=== PATIENT | male | born 1930 | race Caucasian/White ===

== ENCOUNTER 2016-12-18 07:53 | Inpatient (IN) | payer OTHER ==
[2016-12-18 08:00] VITALS: BMI 24.2
--- NOTE | 2016-12-18 08:45 | PDOC ---
History of Present Illness - General Chief Complaint: Altered Mental Status Stated Complaint: ALTERED MENTAL STATUS Time Seen by Provider: 12/18/16 08:05 History Source: Patient, Family - History of Present Illness Timing/Duration: other Associated Symptoms: denies: chest pain, cough, fever/chills, headaches, nausea/ vomiting, seizure, shortness of breath, weakness Past History - Past Medical History Allergies/Adverse Reactions: Allergies Allergy/AdvReac Type Severity Reaction Status Date / Time No Known Allergies Allergy Verified 12/18/16 08:40 Home Medications: Ambulatory Orders Quetiapine Fumarate [Seroquel] 0 tab PO HS 12/18/16 Dementia: Yes Psychiatric Problems: Yes - Surgical History Abdominal Surgery: Yes (HERNIA) - Psycho/Social/Smoking Cessation Hx Suicidal Ideation: No Smoking History: Never smoked Information on smoking cessation initiated: No Review of Systems - Review of Systems Constitutional: No: Chills, Fever Respiratory: No: Cough, Shortness of Breath Cardiac (ROS): No: Chest Pain ABD/GI: No: Constipated, Diarrhea, Nausea, Vomiting : No: Dysuria Neurological: No: Headache, Dizziness *Physical Exam - Vital Signs Last Vital Signs Temp Pulse Resp BP Pulse Ox 98.6 F 102 H 18 175/102 99 12/18/16 07:54 12/18/16 07:54 12/18/16 07:54 12/18/16 07:54 12/18/16 07:54 - Physical Exam General Appearance: Yes: Appropriately Dressed. No: Apparent Distress HEENT: positive: Normal Voice Neck: positive: Supple Respiratory/Chest: positive: Lungs Clear, Normal Breath Sounds. negative: Respiratory Distress Cardiovascular: positive: Regular Rate, S1, S2 Gastrointestinal/Abdominal: positive: Soft. negative: Tender Musculoskeletal: negative: CVA Tenderness Extremity: positive: Normal Inspection Integumentary: positive: Dry, Warm Neurologic: positive: Alert, Normal Mood/Affect, Other (oriented x person only) ED Treatment Course - RADIOLOGY Radiology Studies Ordered: Category Date Time Status HEAD CT WITHOUT CONTRAST [CT] Stat CT Scan 12/18/16 08:15 Ordered CHEST X-RAY PORTABLE* [RAD] Stat Radiology 12/18/16 08:05 Ordered Medical Decision Making - Medical Decision Making 12/18/16 08:20 85-year-old male history of dementia (oriented x 1 at baseline), brought in by family for worsening in cognitive decline. As per step-son, for the past several years, pt has had mostly paranoid behavior which has led to pt accusing multiple family member of stealing from him and has resulted in pt having to move in with different family members frequently. Pt currently resides w/ step son. On several occasions, it has gotten so severe that pt has gotten the police involved, including 3 days ago, and usually bought home by the police. Recently pt has become more aggressive towards family members and was taken to see his pmd, Dr Leong, yesterday and started on seroquel which he took for the first time last night and slept throughout the night per family but awoke w/ aggressive behaviour this am resulting in pt "scraping" L arm against door this am. No fall per son. No reports of SI/HI. Pt otherwise able to carry out ADLs per family. As per son, family overwhelmed and no longer able to care for pt at home in pt's current condition. Pt well frandy and alert in ED. Denies any medical complaints. Currently calling son a liar in ED See exam Worsening dementia, unlikely acute delirium given chronicity of symptoms -will check labs -discuss dispo w/ Dr leong 12/18/16 08:46 Dr Leong at bedside, wants pt admitted. 12/18/16 08:48 *DC/Admit/Observation/Transfer Diagnosis at time of Disposition: Altered mental status Qualifiers: Altered mental status type: unspecified Qualified Code(s): R41.82 - Altered mental status, unspecified - Discharge Dispostion Condition at time of disposition: Fair Admit: Yes - Referrals Referrals: Jodi Leong MD [Primary Care Provider] - - Patient Instructions - Post Discharge Activity
[2016-12-18 09:01] LABS: BASOPHIL 0.6 % (0-2.0); EOSINOPHIL 2.4 % (0-4.5); MCH 32.6 pg (25.7-33.7); MCHC 33.8 g/dl (32.0-35.9); MEAN CELL VOLUME 96.5 fl (80-96); MEAN PLT VOLUME 9.7 fl (7.5-11.1); NEUTROPHILS 48.3 % (42.8-82.8); PLATELET COUNT 158 K/MM3 (134-434); RDW 13.6 % (11.9-15.9); WHITE BLOOD COUNT 5.5 K/mm3 (4.0-10.0)
[2016-12-18 09:26] LABS: ALBUMIN 3.9 g/dl (3.4-5.0); ANION GAP 10 (8-16); BILIRUBIN,TOTAL 0.7 mg/dL (0.2-1.0); CALCIUM 9.2 mg/dL (8.5-10.1); CO2 24 mmol/L (21-32); CREATININE 1.4 mg/dL (0.7-1.3); GLUCOSE,RANDOM 153 mg/dL (74-106); SGOT/AST 26 U/L (15-37); SGPT/ALT 26 U/L (12-78); TOT PROT 6.7 g/dl (6.4-8.2)
[2016-12-18 09:29] LABS: ALK PHOS 90 U/L (45-117); CPK 290 IU/L (39-308); TROPONIN I < 0.02 ng/ml (0.00-0.05)
[2016-12-18] MEDS ORDERED: SODIUM CHLORIDE 500 ML IV STA (09:59)
[2016-12-18] MEDS ORDERED: ACETAMINOPHEN 325 MG TABLET (FP) PO PRN (10:32)
--- NOTE | 2016-12-18 10:37 | HP ---
Admitting History and Physical - Primary Care Physician PCP: Jodi Huerta - Admission Chief Complaint: ALTERED MENTAL STATUS/TOXIC METABOLIC ENCEPHALOPATHY History of Present Illness: 85-year-old male history of dementia (oriented x 1 at baseline), brought in by family for worsening in cognitive decline. As per step-son, for the past several years, pt has had mostly paranoid behavior which has led to pt accusing multiple family member of stealing from him and has resulted in pt having to move in with different family members frequently. Pt currently resides w/ step son. On several occasions, it has gotten so severe that pt has gotten the police involved, including 3 days ago, and usually bought home by the police. Recently pt has become more aggressive towards family members and was taken to see his pmd, Dr Huerta, yesterday and started on seroquel which he took for the first time last night and slept throughout the night per family but awoke w/ aggressive behaviour this am resulting in pt "scraping" L arm against door this am. No fall per son. No reports of SI/HI. Pt otherwise able to carry out ADLs per family. As per son, family overwhelmed and no longer able to care for pt at home in pt's current condition. Pt well frandy and alert in ED. Denies any medical complaints. 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 Psych: Yes: Anxiety, Other - Smoking History Smoking history: Never smoked Home Medications - Allergies Allergies/Adverse Reactions: Allergies Allergy/AdvReac Type Severity Reaction Status Date / Time No Known Allergies Allergy Verified 12/18/16 08:40 - Home Medications Home Medications: Ambulatory Orders Quetiapine Fumarate [Seroquel] 0 tab PO HS 12/18/16 Review of Systems - Review of Systems Constitutional: reports: Other Eyes: reports: No Symptoms HENT: reports: No Symptoms Neck: reports: No Symptoms Cardiovascular: reports: No Symptoms Respiratory: reports: No Symptoms Gastrointestinal: reports: No Symptoms Genitourinary: reports: No Symptoms Musculoskeletal: reports: Muscle Weakness Integumentary: reports: No Symptoms Neurological: reports: Confusion Endocrine: reports: No Symptoms Hematology/Lymphatic: reports: No Symptoms Psychiatric: reports: Altered Sleep Pattern, Anxiety, Paranoia, Other Physical Examination Vital Signs: Vital Signs Temperature 98.6 F 12/18/16 07:54 Pulse Rate 102 H 12/18/16 07:54 Respiratory Rate 18 12/18/16 07:54 Blood Pressure 175/102 12/18/16 07:54 O2 Sat by Pulse Oximetry (%) 98 12/18/16 08:37 Constitutional: Yes: Mild Distress Eyes: Yes: WNL HENT: Yes: WNL Neck: Yes: WNL Cardiovascular: Yes: WNL Respiratory: Yes: WNL Gastrointestinal: Yes: WNL Renal/: Yes: WNL Musculoskeletal: Yes: Muscle Weakness Extremities: Yes: WNL Edema: No Peripheral Pulses WNL: Yes Integumentary: Yes: WNL, Skin Tear (LEFT ARM) Wound/Incision: Yes: Open to air Neurological: Yes: Confusion ...Motor Strength: WNL Psychiatric: Yes: Agitated Imaging - Results Cat Scan: Report Reviewed Problem List - Problems (1) Altered mental status Code(s): R41.82 - ALTERED MENTAL STATUS, UNSPECIFIED Qualifiers: Altered mental status type: delirium Qualified Code(s): R41.0 - Disorientation, unspecified (2) Metabolic encephalopathy Code(s): G93.41 - METABOLIC ENCEPHALOPATHY (3) Dehydration Code(s): E86.0 - DEHYDRATION
[2016-12-18] MEDS ORDERED: SODIUM CHLORIDE 1,000 ML IV SCH (10:45)
--- NOTE | 2016-12-18 11:30 | CON.NEURO ---
Consult - History of Present Illness History of Present Illness: 85-year-old male history of dementia (oriented x 1 at baseline), brought in by family for worsening in cognitive decline. As per step-son, for the past several years, pt has had mostly paranoid behavior which has led to pt accusing multiple family member of stealing from him and has resulted in pt having to move in with different family members frequently. Pt currently resides w/ step son. On several occasions, it has gotten so severe that pt has gotten the police involved, including 3 days ago, and usually bought home by the police. Recently pt has become more aggressive towards family members and was taken to see his pmd, Dr Huerta, yesterday and started on seroquel which he took for the first time last night and slept throughout the night per family but awoke w/ aggressive behaviour this am resulting in pt "scraping" L arm against door this am. No fall per son. No reports of SI/HI. Pt otherwise able to carry out ADLs per family. As per son, family overwhelmed and no longer able to care for pt at home in pt's current condition. Pt well frandy and alert in ED. Denies any medical complaints. 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 Psych: Yes: Anxiety, Other - Smoking History Smoking history: Never smoked Home Medications - Allergies Allergies/Adverse Reactions: Allergies Allergy/AdvReac Type Severity Reaction Status Date / Time No Known Allergies Allergy Verified 12/18/16 08:40 - Home Medications Home Medications: Ambulatory Orders Quetiapine Fumarate [Seroquel] 0 tab PO HS 12/18/16 Physical Exam-Neuro Vital Signs: Vital Signs Temperature 98.6 F 12/18/16 07:54 Pulse Rate 102 H 12/18/16 07:54 Respiratory Rate 18 12/18/16 07:54 Blood Pressure 175/102 12/18/16 07:54 O2 Sat by Pulse Oximetry (%) 98 12/18/16 08:37 Constitutional: Yes: Well Nourished, No Distress - Neuro Exam Level Of Consciousness: Yes: Alert (awake , not oriented to place, not yr, follows basic requests, EOMI, no facial, no drift, reflexes symnmtric ) Problem List - Problems (1) Altered mental status Code(s): R41.82 - ALTERED MENTAL STATUS, UNSPECIFIED Qualifiers: Altered mental status type: delirium Qualified Code(s): R41.0 - Disorientation, unspecified (2) Dehydration Code(s): E86.0 - DEHYDRATION (3) Metabolic encephalopathy Code(s): G93.41 - METABOLIC ENCEPHALOPATHY (4) Dementia Code(s): F03.90 - UNSPECIFIED DEMENTIA WITHOUT BEHAVIORAL DISTURBANCE Assessment/Plan progressive dementia with possible underlying encephalopathy, metabolic (mild ARf) HD CT-no signs of stroke , NPH etc check B12, TSh rehab and SW consult can give low dose seroquel if absolutely necessary Dr Pavon
[2016-12-18] MEDS ORDERED: amLODIPine BESYLATE 5 MG TABLET (FP) ONE (11:34)
--- NOTE | 2016-12-18 11:41 | PDOC ---
*Physical Exam - Vital Signs Last Vital Signs Temp Pulse Resp BP Pulse Ox 98.6 F 102 H 18 175/102 98 12/18/16 07:54 12/18/16 07:54 12/18/16 07:54 12/18/16 07:54 12/18/16 08:37 - Physical Exam General Appearance: Yes: Nourished, Appropriately Dressed HEENT: positive: Normal ENT Inspection Neck: positive: Trachea midline Respiratory/Chest: positive: Lungs Clear, Normal Breath Sounds. negative: Chest Tender, Respiratory Distress Cardiovascular: positive: Regular Rhythm, Regular Rate, S1, S2 Gastrointestinal/Abdominal: positive: Normal Bowel Sounds, Flat, Soft. negative : Tender Musculoskeletal: positive: Normal Inspection. negative: CVA Tenderness Extremity: positive: Normal Capillary Refill, Normal Inspection, Normal Range of Motion Integumentary: positive: Normal Color, Dry, Warm Neurologic: positive: Alert, Motor Strength /5 ED Treatment Course - LABORATORY CBC & Chemistry Diagram: 12/18/16 08:45 12/18/16 08:45 - ADDITIONAL ORDERS Additional order review: Laboratory Results 12/18/16 08:45 Sodium 142 Potassium 4.0 Chloride 108 H Carbon Dioxide 24 Anion Gap 10 BUN 28 H Creatinine 1.4 H Creat Clearance w eGFR 48.05 Random Glucose 153 H Calcium 9.2 Total Bilirubin 0.7 AST 26 ALT 26 Alkaline Phosphatase 90 Creatine Kinase 290 Troponin I < 0.02 Total Protein 6.7 Albumin 3.9 Lipase 139 12/18/16 08:45 RBC 3.74 L MCV 96.5 H MCHC 33.8 RDW 13.6 MPV 9.7 Neutrophils % 48.3 Lymphocytes % 39.1 Monocytes % 9.6 Eosinophils % 2.4 Basophils % 0.6 - Medications Given in the ED: ED Medications Discontinued Medications Generic Name Dose Route Start Last Admin Trade Name Freq PRN Reason Stop Dose Admin Sodium Chloride 500 mls @ 1,000 mls/hr 12/18/16 09:59 12/18/16 10:33 Normal Saline - IV 12/18/16 10:28 1,000 mls/hr ASDIR STA Administration Medical Decision Making - Medical Decision Making 12/18/16 11:37 85 yo m with h/o dementia here brought by family for increasing paranoic, agitation and difficult behavior in the home. no f/c no recent trauma. no c/o pain. was started on seroquel outpt, not tolerating well. on exam awake alert lungs clear heart rrr nomrg. abd soft nt nd. ext wwp. skin warm and dry. 2 + dp/ pt. plan: will require admission for delirium on dementia. r/o infectious causes such as uti or pna. ct head serenity admit with dr. leong. pt seen and examined with DEANNE Alonso, agree with her assessment and plan. *DC/Admit/Observation/Transfer Diagnosis at time of Disposition: Altered mental status Qualifiers: Altered mental status type: delirium Qualified Code(s): R41.0 - Disorientation , unspecified - Discharge Dispostion Condition at time of disposition: Fair
[2016-12-18] MEDS: amLODIPine BESYLATE 5 MG TABLET (FP) PO SCH (12:09)
[2016-12-18] MEDS: DIVALPROEX SODIUM 125 MG SPRINKLE CAPS (FP) PO SCH (12:09)
--- NOTE | 2016-12-18 12:44 | CONSULT ---
Admitting History and Physical - Primary Care Physician PCP: Jodi Huerta - Admission History of Present Illness: Per EMR: Chief Complaint: ALTERED MENTAL STATUS/TOXIC METABOLIC ENCEPHALOPATHY History of Present Illness: 85-year-old male history of dementia (oriented x 1 at baseline), brought in by family for worsening in cognitive decline. As per step-son, for the past several years, pt has had mostly paranoid behavior which has led to pt accusing multiple family member of stealing from him and has resulted in pt having to move in with different family members frequently. Pt currently resides w/ step son. On several occasions, it has gotten so severe that pt has gotten the police involved, including 3 days ago, and usually bought home by the police. Recently pt has become more aggressive towards family members and was taken to see his pmd, Dr Huerta, yesterday and started on seroquel which he took for the first time last night and slept throughout the night per family but awoke w/ aggressive behaviour this am resulting in pt "scraping" L arm against door this am. No fall per son. No reports of SI/HI. Pt otherwise able to carry out ADLs per family. As per son, family overwhelmed and no longer able to care for pt at home in pt's current condition. Pt well frandy and alert in ED. Denies any medical complaints. 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 Psych: Yes: Anxiety, Other - Smoking History Smoking history: Never smoked History - Admission Reason For Visit: ALTERED MENTAL STATUS - Diagnostics X-ray: Report Reviewed CT Scan: Report Reviewed - General Mental Status: Awake and Alert, Confused Attention: Intact Head/Neck Control: Good - Hearing Hearing: Impaired (suspected) Speech Evaluation - Communication Primary Language: FRENCH Secondary Language: VIETNAMESE (fluent) Communication: Yes: Within Normal Limits - Speech Production Able to Make Needs Known: Yes: WNL Intelligibility: Yes: WNL - Speech Characteristics Voice Loudness: Normal Voice Pitch: Yes: Normal Voice Phonatory-based Quality: Yes: Normal Speech Pattern: Normal Speech Clarity: < 100% Nasal Resonance: Normal Articulation: Yes: Precise - Swallow Evaluation/Bedside Assessment Current Nutritional Intake: Other (Nursing reports pt tolerated a hamburger today) Oral Secretions: Yes: WFL Dentition: Yes: Missing Teeth (lower), Dental Appliance Upper Facial Symmetry at Rest: Symmetrical Facial Symmetry on Retraction: Symmetrical Facial Movement: Controlled Sensation: Normal Against Resistance Opening: Normal Against Resistance Closing: Normal Pucker Lips: Normal Smile: Normal Lingual Movement: Normal Lingual Speed of Movement: Normal Lingual Movement Strgth Against Opposition: Normal Lingual Movement Characteristics: Normal Laryngeal Elevation: WFL Laryngeal Movement: Able to Palpate Rate of Intake: WFL Bolus Size: WFL Labial Seal: WFL Chewing: WFL Oral Prep Time: WFL A-P Transit: WFL Timing of Swallow: WFL Coughing/Throat Clear: No Change in Voice: No Recommendations - Speech Evaluation, Impression/Plan Impression: No lower dentition. Overtly mastication is functional. (-) 3 oz water test. - Dysphagia Impressions/Plan *Silent aspiration: cannot be R/O at bedside Recommendations: Other (Monitor tolerance) - Recommendations Diet Consistency: Regular (soft) Medication Administration: Whole with water Liquids: Thin Liquids
[2016-12-18 12:45] LABS: URINE APPEARANCE CLEAR; URINE BILIRUBIN NEGATIVE (NEGATIVE); URINE BLOOD 1+ (NEGATIVE); URINE COLOR COLORLESS; URINE GLUCOSE (UA) 1+ (NEGATIVE); URINE KETONE TRACE (NEGATIVE); URINE LEUK ESTERASE NEGATIVE (NEGATIVE); URINE NITRITE NEGATIVE (NEGATIVE); URINE PROTEIN NEGATIVE (NEGATIVE); URINE UROBILINOGEN NEGATIVE mg/dL (0.2-1.0)
[2016-12-18 13:00] LABS: URINE BACTERIA FEW /hpf (NONE SEEN); URINE RBC <1 /hpf (0-3); URINE WBC <1 /hpf (3-5)
[2016-12-18] MEDS ORDERED: PNEUMOC 13-VAL CONJ-DIP CRM/PF 0.5 ML DISP.SYRIN IM ONE (20:00)
[2016-12-18] MEDS ORDERED: amLODIPine BESYLATE 5 MG TABLET (FP) PO ONE (21:38)
[2016-12-18] MEDS ORDERED: LORazepam 1 MG TABLET PO PRN (21:39)
[2016-12-18] MEDS ORDERED: QUEtiapine FUMARATE 25 MG TABLET (FP) PO SCH (22:00)
[2016-12-19 07:06] LABS: MCH 32.1 pg (25.7-33.7); MCHC 33.2 g/dl (32.0-35.9); MEAN CELL VOLUME 96.6 fl (80-96); MEAN PLT VOLUME 9.3 fl (7.5-11.1); PLATELET COUNT 153 K/MM3 (134-434); RDW 13.8 % (11.9-15.9)
[2016-12-19 08:18] LABS: ALBUMIN 3.6 g/dl (3.4-5.0); ALK PHOS 87 U/L (45-117); ANION GAP 9 (8-16); BILIRUBIN,TOTAL 0.5 mg/dL (0.2-1.0); CALCIUM 9.1 mg/dL (8.5-10.1); CO2 25 mmol/L (21-32); GLUCOSE,RANDOM 124 mg/dL (74-106); SGOT/AST 26 U/L (15-37); SGPT/ALT 25 U/L (12-78); TOT PROT 6.4 g/dl (6.4-8.2)
--- NOTE | 2016-12-19 09:15 | PN ---
Progress Note (short form) - Note Progress Note: 85-year-old male history of dementia (oriented x 1 at baseline), brought in by family for worsening in cognitive decline. As per step-son, for the past several years, pt has had mostly paranoid behavior which has led to pt accusing multiple family member of stealing from him and has resulted in pt having to move in with different family members frequently. Pt currently resides w/ step son. On several occasions, it has gotten so severe that pt has gotten the police involved, including 3 days ago, and usually bought home by the police. Recently pt has become more aggressive towards family members and was taken to see his pmd, Dr Huerta, yesterday and started on seroquel which he took for the first time last night and slept throughout the night per family but awoke w/ aggressive behaviour this am resulting in pt "scraping" L arm against door this am. No fall per son. No reports of SI/HI. Pt otherwise able to carry out ADLs per family. As per son, family overwhelmed and no longer able to care for pt at home in pt's current condition. Pt well frandy and alert in ED. Denies any medical complaints. 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 Psych: Yes: Anxiety, Other - Smoking History Smoking history: Never smoked Home Medications - Allergies Allergies/Adverse Reactions: Allergies Allergy/AdvReac Type Severity Reaction Status Date / Time No Known Allergies Allergy Verified 12/18/16 08:40 - Home Medications Home Medications: Ambulatory Orders Quetiapine Fumarate [Seroquel] 0 tab PO HS 12/18/16 Physical Exam-Neuro Vital Signs: Vital Signs Temperature 98.0 F 12/19/16 06:17 Pulse Rate 61 12/19/16 06:17 Respiratory Rate 18 12/19/16 06:17 Blood Pressure 162/97 12/19/16 06:17 O2 Sat by Pulse Oximetry (%) 98 12/18/16 22:00 CBCD WBC 6.0 K/mm3 (4.0-10.0) 12/19/16 06:00 RBC 4.03 M/mm3 (4.00-5.60) 12/19/16 06:00 Hgb 13.0 GM/dL (11.7-16.9) 12/19/16 06:00 Hct 39.0 % (35.4-49) 12/19/16 06:00 MCV 96.6 fl (80-96) H 12/19/16 06:00 MCHC 33.2 g/dl (32.0-35.9) 12/19/16 06:00 RDW 13.8 % (11.9-15.9) 12/19/16 06:00 Plt Count 153 K/MM3 (134-434) 12/19/16 06:00 MPV 9.3 fl (7.5-11.1) 12/19/16 06:00 CMP Sodium 143 mmol/L (136-145) 12/19/16 06:00 Potassium 4.5 mmol/L (3.5-5.1) 12/19/16 06:00 Chloride 109 mmol/L (98-107) H 12/19/16 06:00 Carbon Dioxide 25 mmol/L (21-32) 12/19/16 06:00 Anion Gap 9 (8-16) 12/19/16 06:00 BUN 21 mg/dL (7-18) H D 12/19/16 06:00 Creatinine 1.0 mg/dL (0.7-1.3) D 12/19/16 06:00 Creat Clearance w eGFR > 60 (>60) 12/19/16 06:00 Calcium 9.1 mg/dL (8.5-10.1) 12/19/16 06:00 Total Bilirubin 0.5 mg/dL (0.2-1.0) D 12/19/16 06:00 AST 26 U/L (15-37) 12/19/16 06:00 ALT 25 U/L (12-78) 12/19/16 06:00 Alkaline Phosphatase 87 U/L (45-117) 12/19/16 06:00 Total Protein 6.4 g/dl (6.4-8.2) 12/19/16 06:00 Albumin 3.6 g/dl (3.4-5.0) 12/19/16 06:00 Constitutional: Yes: Well Nourished, No Distress - Neuro Exam Level Of Consciousness: Yes: Alert (awake , not oriented to place, not yr, follows basic requests, EOMI, no facial, no drift, reflexes symnmtric ) Problem List - Problems (1) Altered mental status Code(s): R41.82 - ALTERED MENTAL STATUS, UNSPECIFIED Qualifiers: Altered mental status type: delirium Qualified Code(s): R41.0 - Disorientation, unspecified (2) Dehydration Code(s): E86.0 - DEHYDRATION (3) Metabolic encephalopathy Code(s): G93.41 - METABOLIC ENCEPHALOPATHY (4) Dementia Code(s): F03.90 - UNSPECIFIED DEMENTIA WITHOUT BEHAVIORAL DISTURBANCE Assessment/Plan progressive dementia with possible underlying encephalopathy, metabolic (mild ARf) HD CT-no signs of stroke , NPH etc check B12, TSh FU 1:1 -flight and fall risk rehab and SW consult--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
[2016-12-19] MEDS ORDERED: PT OWN MED DRAWER 7, Y5N ONE (09:25)
[2016-12-19] MEDS: DIVALPROEX SODIUM 125 MG SPRINKLE CAPS (FP) PO SCH (09:29)
[2016-12-19] MEDS: amLODIPine BESYLATE 5 MG TABLET (FP) PO SCH (09:29)
--- NOTE | 2016-12-19 09:54 | PN ---
Progress Note, Physician Chief Complaint: AWAKE STILL CONFUSED CONFABULATING STORIES - Current Medication List Current Medications: Active Medications Acetaminophen (Tylenol -) 650 mg PO Q6H PRN PRN Reason: FEVER OR PAIN Amlodipine Besylate (Norvasc -) 5 mg PO DAILY [facility] [place] Last Admin: 12/19/16 09:29 Dose: 5 mg Divalproex Sodium (Depakote Sprinkle Caps -) 125 mg PO DAILY [facility] [place] Last Admin: 12/19/16 09:29 Dose: 125 mg Lorazepam (Ativan -) 1 mg PO BID PRN PRN Reason: ANXIETY Quetiapine Fumarate (Seroquel -) 25 mg PO HS [facility] [place] Last Admin: 12/18/16 21:13 Dose: 25 mg - Objective Vital Signs: Vital Signs Temperature 97.9 F 12/19/16 09:30 Pulse Rate 76 12/19/16 09:30 Respiratory Rate 20 12/19/16 09:30 Blood Pressure 156/88 12/19/16 09:30 O2 Sat by Pulse Oximetry (%) 98 12/18/16 22:00 Constitutional: Yes: No Distress Eyes: Yes: WNL HENT: Yes: WNL Neck: Yes: WNL Cardiovascular: Yes: WNL Respiratory: Yes: WNL Gastrointestinal: Yes: WNL Genitourinary: Yes: WNL Musculoskeletal: Yes: WNL Extremities: Yes: WNL Edema: No Peripheral Pulses WNL: Yes Integumentary: Yes: WNL Wound/Incision: Yes: Clean/Dry Neurological: Yes: Confusion ...Motor Strength: LLE, RLE Psychiatric: Yes: Agitated, Other Labs: CBC, BMP 12/19/16 06:00 12/19/16 06:00 Problem List - Problems (1) Altered mental status Code(s): R41.82 - ALTERED MENTAL STATUS, UNSPECIFIED Qualifiers: Altered mental status type: delirium Qualified Code(s): R41.0 - Disorientation, unspecified (2) Metabolic encephalopathy Code(s): G93.41 - METABOLIC ENCEPHALOPATHY (3) Dehydration Code(s): E86.0 - DEHYDRATION Assessment/Plan DEPAKOTE STARTED SERAOQUEL PRN PSYCHIATRY EVAL PENDING NEURO EVAL APPRECIATED WILL NEED SNF PLACEMENT WITH 24 HOUR CARE
--- NOTE | 2016-12-19 11:29 | PN ---
Progress Note, INSIDE SALES LEAD - Note Progress Note: Selected Entries 12/19/16 12/19/16 12/19/16 01:52 06:17 09:30 Diet Tolerated Temperature 97.7 F 98.0 F 97.9 F 12/19/16 10:58 Diet Tolerated Refused Temperature Laboratory Tests 12/19/16 06:00 WBC 6.0 Confused. Confabulatory. Soft diet/thin liquids ordered. Monitor PO tolerance.
--- NOTE | 2016-12-19 12:22 | EKG ---
Test Reason : Blood Pressure : / mmHG Vent. 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
--- NOTE | 2016-12-19 16:54 | CON.PSY ---
Psychiatry Consult Chief Complaint: Brought in by family and left ion the ER. Son reports Dementia and Paranoid behaviour. Patient is a poor Historian. Unable to engage in any meaningful conversation. 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 Claims he picked up three bosies oin that time. Symptoms: reports: Memory Impairment, Aggressivity, Impulsivity, Paranoia - Previous Psychiatric Treatment Outpatient: None Inpatient: None - Previous Substance Abuse Treatment Outpatient: None Inpatient: None - Current Medications Current Medications: Active Medications Acetaminophen (Tylenol -) 650 mg PO Q6H PRN PRN Reason: FEVER OR PAIN Amlodipine Besylate (Norvasc -) 5 mg PO DAILY [facility] Last Admin: 12/19/16 09:29 Dose: 5 mg Divalproex Sodium (Depakote Sprinkle Caps -) 125 mg PO DAILY [facility] Last Admin: 12/19/16 09:29 Dose: 125 mg Lorazepam (Ativan -) 1 mg PO BID PRN PRN Reason: ANXIETY Quetiapine Fumarate (Seroquel -) 25 mg PO [facility] Last Admin: 12/18/16 21:13 Dose: 25 mg - Allergies Allergies: Allergies Allergy/AdvReac Type Severity Reaction Status Date / Time No Known Allergies Allergy Verified 12/18/16 08:40 - Current Living Status Usual Living Arrangement: Alone - Current Mental Status Evaluation Appearance: Well Groomed Attitude: Guarded - Affect Affect: Expansive Appropriateness: Not Appropriate - Mood Mood: Irritable - Speech/Language Expressive: Delayed - Psychomotor Activity Psychomotor Activity: Hyperactive - Thought Process Thought Process: Circumstantial - Thought Content Hallucinations: Absent Delusions: Present Type: Persectory, Grandiose - Self Perception Self Perception: No Impairment - Cognition Attention: Diminished Memory, Immediate Recall: Impaired Memory, Short Term: 1/3 Memory, Remote with Promptin/3 - Concentration Serial Sevens Intact: No Simple Calculations Intact: No - Abstraction Proverb Interpretation: Impaired Judgement: Moderately Impaired - Insight Insight: Impaired - Impulse Control Impulse Control: Moderately Impaired - Homicidal Ideation Homicidal Ideation: No Assessment/Plan start s,mall dose of anti psychotic meds.
[2016-12-19] MEDS ORDERED: OLANZapine 5 MG TABLET PO SCH (22:00)
--- NOTE | 2016-12-20 08:40 | PN ---
Progress Note (short form) - Note Progress Note: 85-year-old male history of dementia (oriented x 1 at baseline), brought in by family for worsening in cognitive decline. As per step-son, for the past several years, pt has had mostly paranoid behavior which has led to pt accusing multiple family member of stealing from him and has resulted in pt having to move in with different family members frequently. Pt currently resides w/ step son. On several occasions, it has gotten so severe that pt has gotten the police involved, including 3 days ago, and usually bought home by the police. Recently pt has become more aggressive towards family members and was taken to see his pmd, Dr Huerta, yesterday and started on seroquel which he took for the first time last night and slept throughout the night per family but awoke w/ aggressive behaviour this am resulting in pt "scraping" L arm against door this am. No fall per son. No reports of SI/HI. Pt otherwise able to carry out ADLs per family. As per son, family overwhelmed and no longer able to care for pt at home in pt's current condition. Pt well frandy and alert in ED. Denies any medical complaints. 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: Yes: Dementia Psych: Yes: Anxiety, Other - Smoking History Smoking history: Never smoked Home Medications - Allergies Allergies/Adverse Reactions: Allergies Allergy/AdvReac Type Severity Reaction Status Date / Time No Known Allergies Allergy Verified 12/18/16 08:40 - Home Medications Home Medications: Ambulatory Orders Quetiapine Fumarate [Seroquel] 0 tab PO HS 12/18/16 Physical Exam-Neuro Vital Signs: Vital Signs Temperature 98.0 F 12/19/16 06:17 Pulse Rate 61 12/19/16 06:17 Respiratory Rate 18 12/19/16 06:17 Blood Pressure 162/97 12/19/16 06:17 O2 Sat by Pulse Oximetry (%) 98 12/18/16 22:00 CBCD WBC 6.0 K/mm3 (4.0-10.0) 12/19/16 06:00 RBC 4.03 M/mm3 (4.00-5.60) 12/19/16 06:00 Hgb 13.0 GM/dL (11.7-16.9) 12/19/16 06:00 Hct 39.0 % (35.4-49) 12/19/16 06:00 MCV 96.6 fl (80-96) H 12/19/16 06:00 MCHC 33.2 g/dl (32.0-35.9) 12/19/16 06:00 RDW 13.8 % (11.9-15.9) 12/19/16 06:00 Plt Count 153 K/MM3 (134-434) 12/19/16 06:00 MPV 9.3 fl (7.5-11.1) 12/19/16 06:00 CMP Sodium 143 mmol/L (136-145) 12/19/16 06:00 Potassium 4.5 mmol/L (3.5-5.1) 12/19/16 06:00 Chloride 109 mmol/L (98-107) H 12/19/16 06:00 Carbon Dioxide 25 mmol/L (21-32) 12/19/16 06:00 Anion Gap 9 (8-16) 12/19/16 06:00 BUN 21 mg/dL (7-18) H D 12/19/16 06:00 Creatinine 1.0 mg/dL (0.7-1.3) D 12/19/16 06:00 Creat Clearance w eGFR > 60 (>60) 12/19/16 06:00 Calcium 9.1 mg/dL (8.5-10.1) 12/19/16 06:00 Total Bilirubin 0.5 mg/dL (0.2-1.0) D 12/19/16 06:00 AST 26 U/L (15-37) 12/19/16 06:00 ALT 25 U/L (12-78) 12/19/16 06:00 Alkaline Phosphatase 87 U/L (45-117) 12/19/16 06:00 Total Protein 6.4 g/dl (6.4-8.2) 12/19/16 06:00 Albumin 3.6 g/dl (3.4-5.0) 12/19/16 06:00 Constitutional: Yes: Well Nourished, No Distress - Neuro Exam Level Of Consciousness: Yes: Alert (awake , not oriented to place, not yr, follows basic requests, EOMI, no facial, no drift, reflexes symnmtric ) Problem List - Problems (1) Altered mental status Code(s): R41.82 - ALTERED MENTAL STATUS, UNSPECIFIED Qualifiers: Altered mental status type: delirium Qualified Code(s): R41.0 - Disorientation, unspecified (2) Dehydration Code(s): E86.0 - DEHYDRATION (3) Metabolic encephalopathy Code(s): G93.41 - METABOLIC ENCEPHALOPATHY (4) Dementia Code(s): F03.90 - UNSPECIFIED DEMENTIA WITHOUT BEHAVIORAL DISTURBANCE Assessment/Plan progressive dementia with possible underlying encephalopathy, metabolic (mild ARf) HD CT-no signs of stroke , NPH etc FU B12, TSh FU 1:1 -flight and fall risk reduce zyprexa given new onset tremor rehab and SW consult--will need supervised terminal make up operator care Dr Pavon Problem List - Problems (1) Altered mental status Code(s): R41.82 - ALTERED MENTAL STATUS, UNSPECIFIED Qualifiers: Altered mental status type: delirium Qualified Code(s): R41.0 - Disorientation, unspecified (2) Dehydration Code(s): E86.0 - DEHYDRATION (3) Metabolic encephalopathy Code(s): G93.41 - METABOLIC ENCEPHALOPATHY (4) Dementia Code(s): F03.90 - UNSPECIFIED DEMENTIA WITHOUT BEHAVIORAL DISTURBANCE
[2016-12-20] MEDS ORDERED: PT OWN MED DRAWER 7, Y5N ONE ×2 (09:02→19:43)
[2016-12-20] MEDS: amLODIPine BESYLATE 5 MG TABLET (FP) PO SCH (09:03)
[2016-12-20] MEDS: DIVALPROEX SODIUM 125 MG SPRINKLE CAPS (FP) PO SCH ×2 (09:04→21:13)
--- NOTE | 2016-12-20 10:11 | PN ---
Progress Note, Physician Chief Complaint: AWAKE CONFUSED WANDERING HALLWAY EARLIER TODAY NOW SITTING DOWN CONFABULATING STORIES - Current Medication List Current Medications: Active Medications Acetaminophen (Tylenol -) 650 mg PO Q6H PRN PRN Reason: FEVER OR PAIN Amlodipine Besylate (Norvasc -) 5 mg PO DAILY [facility] Last Admin: 12/20/16 09:03 Dose: 5 mg Divalproex Sodium (Depakote Sprinkle Caps -) 125 mg PO DAILY [facility] Last Admin: 12/20/16 09:04 Dose: 125 mg Lorazepam (Ativan -) 1 mg PO BID PRN PRN Reason: ANXIETY Olanzapine (Zyprexa -) 5 mg PO HS [facility] Last Admin: 12/19/16 21:22 Dose: 5 mg - Objective Vital Signs: Vital Signs Temperature 98.1 F 12/19/16 20:43 Pulse Rate 82 12/19/16 20:43 Respiratory Rate 16 12/19/16 21:00 Blood Pressure 159/85 12/19/16 20:43 O2 Sat by Pulse Oximetry (%) 98 12/19/16 21:00 Constitutional: Yes: Mild Distress Eyes: Yes: WNL HENT: Yes: WNL Neck: Yes: WNL Cardiovascular: Yes: WNL Respiratory: Yes: WNL Gastrointestinal: Yes: WNL Genitourinary: Yes: WNL Musculoskeletal: Yes: WNL Extremities: Yes: WNL Edema: No Peripheral Pulses WNL: Yes Integumentary: Yes: WNL Wound/Incision: Yes: Clean/Dry Neurological: Yes: Confusion, Tremors ...Motor Strength: LUE, LLE, RUE, RLE Psychiatric: Yes: WNL Labs: CBC, BMP 12/19/16 06:00 12/19/16 06:00 Problem List - Problems (1) Altered mental status Code(s): R41.82 - ALTERED MENTAL STATUS, UNSPECIFIED Qualifiers: Altered mental status type: delirium Qualified Code(s): R41.0 - Disorientation, unspecified (2) Metabolic encephalopathy Code(s): G93.41 - METABOLIC ENCEPHALOPATHY (3) Dehydration Code(s): E86.0 - DEHYDRATION Assessment/Plan DECREASE ZYPREXA BECAUSE OF TREMOR DEPAKOTE BID LABS REVIEWED PLACEMENT Friday TO [facility]
--- NOTE | 2016-12-20 12:20 | PN ---
Progress Note, MAPPER - Note Progress Note: Selected Entries 12/19/16 12/19/16 12/19/16 01:52 06:17 09:30 Breakfast Lunch Supper Temperature 97.7 F 98.0 F 97.9 F 12/19/16 12/19/16 12/19/16 10:58 15:01 18:55 Breakfast 0 Lunch 100% Supper Temperature 98.3 F 97.9 F 12/19/16 12/19/16 12/20/16 20:43 22:02 11:22 Breakfast 100% Lunch Supper 75% Temperature 98.1 F Tolerating diet well. Pt continues to be confused & disoriented, wandering around in the unit. He is verbal but confused, onfabulatory with paranoid-like statements.
[2016-12-20] MEDS: OLANZapine 2.5 MG TABLET PO SCH (21:13)
[2016-12-20] MEDS ORDERED: OLANZapine 2.5 MG TABLET PO SCH ×2 (22:00)
--- NOTE | 2016-12-21 09:15 | PN ---
Progress Note, Physician History of Present Illness: confused with periods of agitation - Current Medication List Current Medications: Active Medications Acetaminophen (Tylenol -) 650 mg PO Q6H PRN PRN Reason: FEVER OR PAIN Amlodipine Besylate (Norvasc -) 5 mg PO DAILY [facility] Last Admin: 12/20/16 09:03 Dose: 5 mg Divalproex Sodium (Depakote Sprinkle Caps -) 125 mg PO BID [facility] Last Admin: 12/20/16 21:13 Dose: 125 mg Lorazepam (Ativan -) 1 mg PO TID PRN PRN Reason: ANXIETY Olanzapine (Zyprexa -) 2.5 mg PO BID [facility] Last Admin: 12/20/16 21:13 Dose: 2.5 mg - Objective Vital Signs: Vital Signs Temperature 98.1 F 12/21/16 06:30 Pulse Rate 90 12/21/16 06:30 Respiratory Rate 18 12/21/16 06:30 Blood Pressure 154/86 12/21/16 06:30 O2 Sat by Pulse Oximetry (%) 100 12/20/16 21:00 Cardiovascular: Yes: S1, S2 Respiratory: Yes: Regular, CTA Bilaterally Gastrointestinal: Yes: Normal Bowel Sounds, Soft Labs: CBC, BMP 12/19/16 06:00 12/19/16 06:00 Problem List - Problems (1) Altered mental status Assessment/Plan: neuro and psych on board monitor on current meds Code(s): R41.82 - ALTERED MENTAL STATUS, UNSPECIFIED Qualifiers: Altered mental status type: delirium Qualified Code(s): R41.0 - Disorientation, unspecified (2) Dementia Assessment/Plan: as above Code(s): F03.90 - UNSPECIFIED DEMENTIA WITHOUT BEHAVIORAL DISTURBANCE (3) Metabolic encephalopathy Assessment/Plan: ammonia level Code(s): G93.41 - METABOLIC ENCEPHALOPATHY (4) B12 deficiency Assessment/Plan: b12 replacement Code(s): E53.8 - DEFICIENCY OF OTHER SPECIFIED B GROUP VITAMINS
[2016-12-21] MEDS ORDERED: PT OWN MED DRAWER 7, Y5N ONE (09:45)
[2016-12-21] MEDS: amLODIPine BESYLATE 5 MG TABLET (FP) PO SCH ×3 (09:46→10:53)
[2016-12-21] MEDS: OLANZapine 2.5 MG TABLET PO SCH ×4 (09:47→21:28)
[2016-12-21] MEDS: DIVALPROEX SODIUM 125 MG SPRINKLE CAPS (FP) PO SCH ×4 (09:47→21:28)
[2016-12-21] MEDS: CYANOCOBALAMIN (VITAMIN B-12) 1000 MCG/1 ML VIAL IM SCH (13:47)
[2016-12-22] MEDS ORDERED: PT OWN MED DRAWER 7, Y5N ONE ×3 (08:23→19:40)
[2016-12-22] MEDS: CYANOCOBALAMIN (VITAMIN B-12) 1000 MCG/1 ML VIAL IM SCH (09:52)
[2016-12-22] MEDS: amLODIPine BESYLATE 5 MG TABLET (FP) PO SCH ×2 (09:52→13:36)
[2016-12-22] MEDS: DIVALPROEX SODIUM 125 MG SPRINKLE CAPS (FP) PO SCH ×3 (09:52→21:29)
[2016-12-22] MEDS: OLANZapine 2.5 MG TABLET PO SCH ×3 (09:52→21:29)
--- NOTE | 2016-12-22 10:26 | PN ---
Progress Note, Physician History of Present Illness: confused with periods of agitation - Current Medication List Current Medications: Active Medications Acetaminophen (Tylenol -) 650 mg PO Q6H PRN PRN Reason: FEVER OR PAIN Amlodipine Besylate (Norvasc -) 5 mg PO DAILY [facility] Last Admin: 12/22/16 09:52 Dose: Not Given Cyanocobalamin (Vitamin B12 Injection -) 1,000 mcg IM DAILY [facility] Last Admin: 12/22/16 09:52 Dose: Not Given Divalproex Sodium (Depakote Sprinkle Caps -) 125 mg PO BID [facility] Last Admin: 12/22/16 09:52 Dose: Not Given Lorazepam (Ativan -) 1 mg PO TID PRN PRN Reason: ANXIETY Olanzapine (Zyprexa -) 2.5 mg PO BID [facility] Last Admin: 12/22/16 09:52 Dose: Not Given - Objective Vital Signs: Vital Signs Temperature 97.2 F L 12/21/16 22:00 Pulse Rate 68 12/21/16 22:00 Respiratory Rate 20 12/21/16 22:00 Blood Pressure 139/69 12/21/16 22:00 O2 Sat by Pulse Oximetry (%) 100 12/21/16 21:00 Cardiovascular: Yes: S1, S2 Respiratory: Yes: Regular, CTA Bilaterally Labs: CBC, BMP 12/19/16 06:00 12/19/16 06:00 Problem List - Problems (1) Altered mental status Assessment/Plan: neuro and psych on board monitor on current meds Code(s): R41.82 - ALTERED MENTAL STATUS, UNSPECIFIED Qualifiers: Altered mental status type: delirium Qualified Code(s): R41.0 - Disorientation, unspecified (2) Dementia Assessment/Plan: as above Code(s): F03.90 - UNSPECIFIED DEMENTIA WITHOUT BEHAVIORAL DISTURBANCE (3) Metabolic encephalopathy Assessment/Plan: ammonia level LOW Code(s): G93.41 - METABOLIC ENCEPHALOPATHY (4) B12 deficiency Assessment/Plan: b12 replacement Code(s): E53.8 - DEFICIENCY OF OTHER SPECIFIED B GROUP VITAMINS
[2016-12-22] MEDS: LORazepam 1 MG TABLET PO PRN (13:36)
[2016-12-23] MEDS ORDERED: PT OWN MED DRAWER 7, Y5N ONE (09:44)
[2016-12-23] MEDS: DIVALPROEX SODIUM 125 MG SPRINKLE CAPS (FP) PO SCH (09:49)
[2016-12-23] MEDS: amLODIPine BESYLATE 5 MG TABLET (FP) PO SCH (09:49)
[2016-12-23] MEDS: OLANZapine 2.5 MG TABLET PO SCH (09:50)
[2016-12-23] MEDS: CYANOCOBALAMIN (VITAMIN B-12) 1000 MCG/1 ML VIAL IM SCH (09:50)
[2016-12-23 11:10] VITALS: TEMP 97.6
[2016-12-23] MEDS: LORazepam 1 MG TABLET PO PRN (15:28)
[2016-12-23 15:42] VITALS: BP 130/59; PULSE 86
--- NOTE | 2016-12-23 15:44 | DS ---
Physical Examination Vital Signs: Vital Signs Temperature 97.6 F 12/23/16 10:00 Pulse Rate 86 12/23/16 14:05 Respiratory Rate 16 12/23/16 14:05 Blood Pressure 130/59 12/23/16 14:05 O2 Sat by Pulse Oximetry (%) 100 12/23/16 09:00 Constitutional: Yes: Mild Distress Eyes: Yes: WNL HENT: Yes: WNL Neck: Yes: WNL Cardiovascular: Yes: WNL Respiratory: Yes: WNL Gastrointestinal: Yes: WNL Musculoskeletal: Yes: WNL Extremities: Yes: WNL Edema: No Peripheral Pulses WNL: Yes Integumentary: Yes: WNL Wound/Incision: Yes: Clean/Dry Neurological: Yes: Confusion ...Motor Strength: WNL Psychiatric: Yes: Agitated Labs: CBC, BMP 12/19/16 06:00 12/19/16 06:00 Discharge Summary Reason For Visit: ALTERED MENTAL STATUS Current Active Problems Altered mental status (Acute) B12 deficiency (Acute) Dehydration (Acute) Dementia (Acute) Metabolic encephalopathy (Acute) Procedures: Principal: ct head Other Procedures: labs Hospital Course: admitted for acute toxic encephalopathy, progressive dementia, will need retirement care as family can no longer care for him because his has alzheimers disease Condition: Fair - Instructions Diet, Activity, Other Instructions: low sodium psychiatry eval Referrals: Jodi Huerta MD [Primary Care Provider] - Disposition: INTERMEDIATE FACILITY - Home Medications Comprehensive Discharge Medication List: Ambulatory Orders Acetaminophen [Tylenol .Regular Strength -] 650 mg PO Q6H PRN #0 tablet Amlodipine Besylate [Norvasc -] 5 mg PO DAILY tablet 12/23/16 Divalproex Sprinkle [Depakote Sprinkle -] 125 mg PO BID cap.sprink 12/23/16 Lorazepam [Ativan] 1 mg PO TID PRN #0 tablet MDD 3 12/23/16 Olanzapine [Zyprexa -] 2.5 mg PO BID tablet 12/23/16
== END 2016-12-23 17:03 | DRG 884 ==
LOC: JER 07:53 → JERBED 08:47 → J4S 17:50
PROVIDERS: ADMIT Family Medicine; ATTEND Family Medicine
DX: F03.90 Unspecified dementia, unspecified severity, without behavioral disturbance, psychotic disturbance, mood disturbance, and anxiety (principal); G93.41 Metabolic encephalopathy; N17.9 Acute kidney failure, unspecified; F41.8 Other specified anxiety disorders; E86.0 Dehydration; F60.0 Paranoid personality disorder; E53.8 Deficiency of other specified B group vitamins; R41.0 Disorientation, unspecified
CPT/HCPCS: 36415; 70450-TC; 71010-TC; 80053; 81003; 81015; 82140; 82553; 82607; 83690; 84443; 84484; 85025; 85027; 85651; 93005; 93010; 97116-GP; 97161-GP; 99284-25

== ENCOUNTER 2017-04-14 18:09 | Inpatient (IN) | payer OTHER ==
--- NOTE | 2017-04-14 18:47 | PDOC ---
Rapid Medical Evaluation Time Seen by Provider: 04/14/17 18:44 Medical Evaluation: Allergies Allergy/AdvReac Type Severity Reaction Status Date / Time No Known Allergies Allergy Verified 04/14/17 18:43 04/14/17 18:44 I have performed a brief in-person evaluation of this patient. The patient presents with a chief complaint of: R hip pain and unable to bear weight. S/p fall w/ R hip surgery 2 weeks ago while in [facility], discharged from hospital and [place] the [place] today. H/o dementia and glaucoma Pertinent physical exam findings:will defer hip exam to main ED provider I have ordered the following:hip films, cbc/chem/ua The patient will proceed to the ED for further evaluation. 04/14/17 18:47
[2017-04-14] MEDS ORDERED: SODIUM CHLORIDE 0.9% 500 ML INFUS.BAG IV ONE (20:01)
[2017-04-14 20:25] LABS: BASO % 0.6 % (0-2.0); EOS % 0.6 % (0-4.5); HEMATOCRIT 28.7 % (35.4-49); HEMOGLOBIN 9.6 GM/dL (11.7-16.9); LYMPH % 6.9 % (8-40); MCHC 33.4 g/dl (32.0-35.9); MEAN CELL VOLUME 95.8 fl (80-96); MEAN PLT VOLUME 8.6 fl (7.5-11.1); MONO % 9.4 % (3.8-10.2); NEUT % 82.5 % (42.8-82.8); PLATELET COUNT 436 K/MM3 (134-434); RDW 14.9 % (11.9-15.9); WHITE BLOOD COUNT 13.3 K/mm3 (4.0-10.0)
[2017-04-14] MEDS ORDERED: ACETAMINOPHEN 1000 MG/100 ML VIAL (NON FORMULARY) IVPB ONE (20:26)
--- NOTE | 2017-04-14 20:31 | PDOC ---
History of Present Illness - General History Source: Patient Exam Limitations: No Limitations - History of Present Illness Initial Comments: 04/14/17 21:15 The patient is a 86 year old male (poor historian), with a significant past medical history of Dementia and Glaucoma who presents to the emergency department with R hip pain for the past two weeks. Patient is accompanied by son who reports recent R hip surgery (15 days ago) in [facility] s/p fall. Since the procedure, patient has increased pain and has not been able to bear weight. [place] [facility] today and presents to the ED for further evaluation. Patient denies chest pain, headache or dizziness. Patient denies fever, chills, abdominal pain, nausea, vomit, diarrhea or constipation. Patient denies dysuria , frequency, urgency or hematuria. Patient denies sick contacts. Allergies: NKA Past surgical history: R hip surgery Social history: None PCP: Dr. Huerta <Jess Vazquez - Last Filed: 04/14/17 21:15> <Kasie Dhaliwal - Last Filed: 04/15/17 00:21> - General Chief Complaint: Pain Stated Complaint: PCP SENT/HIP PAIN Time Seen by Provider: 04/14/17 18:44 Past History <Jess Vazquez - Last Filed: 04/14/17 21:15> - Past Medical History Dementia: Yes Psychiatric Problems: Yes - Surgical History Abdominal Surgery: Yes (HERNIA) - Suicide/Smoking/Psychosocial Hx Smoking History: Never smoked <Kasie Dhaliwal - Last Filed: 04/15/17 00:21> - Past Medical History Allergies/Adverse Reactions: Allergies Allergy/AdvReac Type Severity Reaction Status Date / Time No Known Allergies Allergy Verified 04/14/17 18:43 Home Medications: Ambulatory Orders Amlodipine Besylate [Norvasc -] 10 mg PO DAILY 04/14/17 Brimonidine Tartrate [Alphagan 0.2% -] 1 drop OU DAILY 04/14/17 Dorzolamide HCl/Timolol Maleat [Cosopt Eye Drops] 10 ml OP DAILY 04/14/17 Olanzapine [Zyprexa -] 2.5 mg PO DAILY 04/14/17 Quetiapine Fumarate [Seroquel -] 25 mg PO HS 04/14/17 Travoprost [Travatan Z] 2.5 ml OP DAILY 04/14/17 Review of Systems - Review of Systems Able to Perform ROS?: Yes Comments:: 04/14/17 21:15 GENERAL/CONSTITUTIONAL: No fever or chills. No weakness. HEAD, EYES, EARS, NOSE AND THROAT: No change in vision. No ear pain or discharge. No sore throat. CARDIOVASCULAR: No chest pain or shortness of breath. RESPIRATORY: No cough, wheezing, or hemoptysis. GASTROINTESTINAL: No nausea, vomiting, diarrhea or constipation. GENITOURINARY: No dysuria, frequency, or change in urination. MUSCULOSKELETAL: + R hip pain. No joint or muscle swelling or pain. No neck or back pain. SKIN: No rash NEUROLOGIC: No headache, vertigo, loss of consciousness, or change in strength/ sensation. ENDOCRINE: No increased thirst. No abnormal weight change. HEMATOLOGIC/LYMPHATIC: No anemia, easy bleeding, or history of blood clots. ALLERGIC/IMMUNOLOGIC: No hives or skin allergy. <Jess Vazquez - Last Filed: 04/14/17 21:15> *Physical Exam - Vital Signs Last Vital Signs Temp Pulse Resp BP Pulse Ox 97.9 F 72 19 95/48 96 04/14/17 18:43 04/14/17 18:43 04/14/17 18:43 04/14/17 18:43 04/14/17 18:43 - Physical Exam Comments: 04/14/17 21:15 ADULT EXAM GENERAL: Awake, alert, and fully oriented, in no acute distress HEAD: No signs of trauma EYES: PERRLA, EOMI, sclera anicteric, conjunctiva clear ENT: Auricles normal inspection, hearing grossly normal, nares patent, oropharynx clear without exudates. Moist mucosa NECK: Normal ROM, supple, no lymphadenopathy, JVD, or masses LUNGS: Breath sounds equal, clear to auscultation bilaterally. No wheezes, and no crackles HEART: Regular rate and rhythm, normal S1 and S2, no murmurs, rubs or gallops ABDOMEN: Soft, nontender, normoactive bowel sounds. No guarding, no rebound. No masses EXTREMITIES: Normal range of motion, no edema. No clubbing or cyanosis. No cords, erythema, or tenderness NEUROLOGICAL: Cranial nerves II through XII grossly intact. Normal speech SKIN: Warm, Dry, normal turgor, no rashes or lesions noted. <Jess Vazquez - Last Filed: 04/14/17 21:15> - Vital Signs Last Vital Signs Temp Pulse Resp BP Pulse Ox 97.9 F 72 19 95/48 96 04/14/17 18:43 04/14/17 18:43 04/14/17 18:43 04/14/17 18:43 04/14/17 18:43 <Kasie Dhaliwal - Last Filed: 04/15/17 00:21> ED Treatment Course - LABORATORY CBC & Chemistry Diagram: 04/14/17 20:10 04/14/17 20:10 - ADDITIONAL ORDERS Additional order review: Laboratory Results 04/14/17 20:10 Sodium 136 Potassium 4.6 Chloride 101 Carbon Dioxide 29 Anion Gap 6 L BUN 33 H D Creatinine 2.5 H D Creat Clearance w eGFR 24.55 Random Glucose 167 H D Calcium 8.7 Total Bilirubin 1.2 H D AST 39 H D ALT 35 D Alkaline Phosphatase 126 H D Total Protein 6.7 Albumin 3.3 L 04/14/17 20:10 RBC 3.00 L D MCV 95.8 MCHC 33.4 RDW 14.9 MPV 8.6 Neutrophils % 82.5 D Lymphocytes % 6.9 L D Monocytes % 9.4 Eosinophils % 0.6 Basophils % 0.6 - Medications Given in the ED: ED Medications Discontinued Medications Generic Name Dose Route Start Last Admin Trade Name Freq PRN Reason Stop Dose Admin Sodium Chloride 1,000 ml 04/14/17 20:01 04/14/17 20:20 Normal Saline - IV 04/14/17 20:02 1,000 ml ONCE ONE Administration <Jess Vazquez - Last Filed: 04/14/17 21:15> - LABORATORY CBC & Chemistry Diagram: 04/14/17 20:10 04/14/17 20:10 - ADDITIONAL ORDERS Additional order review: 04/14/17 20:10 RBC 3.00 L D MCV 95.8 MCHC 33.4 RDW 14.9 MPV 8.6 Neutrophils % 82.5 D Lymphocytes % 6.9 L D Monocytes % 9.4 Eosinophils % 0.6 Basophils % 0.6 - Medications Given in the ED: ED Medications Discontinued Medications Generic Name Dose Route Start Last Admin Trade Name Freq PRN Reason Stop Dose Admin Sodium Chloride 1,000 ml 04/14/17 20:01 04/14/17 20:20 Normal Saline - IV 04/14/17 20:02 1,000 ml ONCE ONE Administration <Kasie Dhaliwal - Last Filed: 04/15/17 00:21> Medical Decision Making - Medical Decision Making 04/14/17 21:[address] Huerta. Patient to be admitted to Hospitalist. Awaiting imaging results. <Jess Vazquez - Last Filed: 04/14/17 21:15> - Medical Decision Making 04/14/17 23:22 Pt's hip hardware/screws, etc. appear to be protruding into the joint space. Pt will likely need a revision of his hip hardware. Pt will be admitted to hospitalist who is covering Bradley Patel, and pt will require ortho eval in the AM and CT scan of the hip. Dr Huerta states that pt will need SNF placement. <Kasie Dhaliwal - Last Filed: 04/15/17 00:21> *DC/Admit/Observation/Transfer - Attestations Scribe Attestion: 04/14/17 21:17 Documentation prepared by Jess Vazquez, acting as regional medical director for Kasie Dhaliwal MD/DO. <Jess Vazquez - Last Filed: 04/14/17 21:15> - Discharge Dispostion Admit: Yes <Kasie Dhaliwal - Last Filed: 04/15/17 00:21> Diagnosis at time of Disposition: Inability to ambulate due to hip, Status post hip surgery, Surgical complication - Discharge Dispostion Condition at time of disposition: Guarded - Referrals Referrals: Jodi Huerta MD [Primary Care Provider] - - Patient Instructions - Post Discharge Activity
[2017-04-14] MEDS ORDERED: ACETAMINOPHEN INJECTION 0 ML IVPB ONE (20:48)
[2017-04-14 20:50] LABS: ALBUMIN 3.3 g/dl (3.4-5.0); ALK PHOS 126 U/L (45-117); ANION GAP 6 (8-16); BILIRUBIN,TOTAL 1.2 mg/dL (0.2-1.0); BLOOD UREA NITROGEN 33 mg/dL (7-18); CALCIUM 8.7 mg/dL (8.5-10.1); CHLORIDE 101 mmol/L (98-107); CO2 29 mmol/L (21-32); CREATININE 2.5 mg/dL (0.7-1.3); GLUCOSE,RANDOM 167 mg/dL (74-106); POTASSIUM 4.6 mmol/L (3.5-5.1); SGOT/AST 39 U/L (15-37); SGPT/ALT 35 U/L (12-78); SODIUM 136 mmol/L (136-145); TOT PROT 6.7 g/dl (6.4-8.2)
[2017-04-14] MEDS ORDERED: ACETAMINOPHEN INJECTION 100 ML IVPB ONE (21:13)
[2017-04-14] MEDS ORDERED: morphine CARPU-JECT 2 MG/1 ML DISP.SYRIN IVPUSH ONE (22:00)
[2017-04-14] MEDS ORDERED: morphine CARPU-JECT 10 MG/1 ML DISP.SYRIN ONE (22:05)
[2017-04-14 23:17] LABS: URINE APPEARANCE CLOUDY; URINE BILIRUBIN NEGATIVE (NEGATIVE); URINE BLOOD NEGATIVE (NEGATIVE); URINE COLOR DKYELLOW; URINE GLUCOSE (UA) 1+ (NEGATIVE); URINE KETONE 1+ (NEGATIVE); URINE LEUK ESTERASE NEGATIVE (NEGATIVE); URINE NITRITE NEGATIVE (NEGATIVE); URINE PROTEIN NEGATIVE (NEGATIVE); URINE UROBILINOGEN NEGATIVE mg/dL (0.2-1.0)
[2017-04-15] MEDS ORDERED: morphine SULFATE 4 MG/ML VIAL IVPUSH PRN (00:21)
[2017-04-15] MEDS ORDERED: SODIUM CHLORIDE 1,000 ML IV SCH (00:30)
--- NOTE | 2017-04-15 00:45 | HP ---
CHIEF COMPLAINT: right hip pain unable to weight bear PCP: Bradley HISTORY OF PRESENT ILLNESS: This is an 86 year old male with a past medical history of dementia and glaucoma who presented to the ED with right hip pain and unable to ambulate. He has dementia and is unable to provide any history or contribute to ROS. Family is not at the bedside. Information obtained from chart review. Pt is s/p fall with right hip surgery 2 weeks ago as per ED chart. ER course was notable for: (1) Right hip xray with displaced hardware (2) WBC 13.3 (3) received morphine for pain Recent Travel: Pending Sale To [facility] PAST MEDICAL HISTORY: dementia glaucoma PAST SURGICAL HISTORY: right hip surgery 2 weeks ago Social History: Smoking: unk Alcohol: unk Drugs: unk Family History: unk Allergies No Known Allergies Allergy (Verified 04/14/17 18:43) HOME MEDICATIONS: 3 Medication Instructions Recorded Amlodipine Besylate [Norvasc -] 10 mg PO DAILY 04/14/17 Brimonidine Tartrate [Alphagan 1 drop OU DAILY 04/14/17 0.2% -] Dorzolamide HCl/Timolol Maleat 10 ml OP DAILY 04/14/17 [Cosopt Eye Drops] Olanzapine [Zyprexa -] 2.5 mg PO DAILY 04/14/17 Quetiapine Fumarate [Seroquel -] 25 mg PO HS 04/14/17 Travoprost [Travatan Z] 2.5 ml OP DAILY 04/14/17 REVIEW OF SYSTEMS CONSTITUTIONAL: Absent: fever, chills, diaphoresis, generalized weakness, malaise, loss of appetite, weight change HEENT: Absent: rhinorrhea, nasal congestion, throat pain, throat swelling, difficulty swallowing, mouth swelling, ear pain, eye pain, visual changes CARDIOVASCULAR: Absent: chest pain, syncope, palpitations, irregular heart rate, lightheadedness , peripheral edema RESPIRATORY: Absent: cough, shortness of breath, dyspnea with exertion, orthopnea, wheezing, stridor, hemoptysis GASTROINTESTINAL: Absent: abdominal pain, abdominal distension, nausea, vomiting, diarrhea, constipation, melena, hematochezia GENITOURINARY: Absent: dysuria, frequency, urgency, hesitancy, hematuria, flank pain, genital pain MUSCULOSKELETAL: Present: right hip pain, unable to ambulate Absent: myalgia, arthralgia, joint swelling, back pain, neck pain SKIN: Absent: rash, itching, pallor HEMATOLOGIC/IMMUNOLOGIC: Absent: easy bleeding, easy bruising, lymphadenopathy, frequent infections ENDOCRINE: Absent: unexplained weight gain, unexplained weight loss, heat intolerance, cold intolerance NEUROLOGIC: Absent: headache, focal weakness or paresthesias, dizziness, unsteady gait, seizure, mental status changes, bladder or bowel incontinence PSYCHIATRIC: Absent: anxiety, depression, suicidal or homicidal ideation, hallucinations. PHYSICAL EXAMINATION Vital Signs - 24 hr 3 04/14/17 04/14/17 18:43 22:10 Temperature 97.9 F Pulse Rate 72 Pulse Rate [ 88 Apical] Respiratory 19 18 Rate Blood Pressure 95/48 Blood Pressure 138/70 [Right Arm] O2 Sat by Pulse 96 95 Oximetry (%) GENERAL: sedated, arousable, in no acute distress. HEAD: Normal with no signs of trauma. EYES: Pupils equal, round and reactive to light, extraocular movements intact, sclera anicteric, conjunctiva clear. No lid lag. EARS, NOSE, THROAT: Ears normal, nares patent, oropharynx clear without exudates. Moist mucous membranes. NECK: Normal range of motion, supple without lymphadenopathy, JVD, or masses. LUNGS: Breath sounds equal, clear to auscultation bilaterally. Diminished bilat bases, poor inspiratory effort. No wheezes, and no crackles. No accessory muscle use. HEART: Regular rate and rhythm, normal S1 and S2 without murmur, rub or gallop. ABDOMEN: Soft, nontender, not distended, normoactive bowel sounds, no guarding, no rebound, no masses. No hepatomegaly or splenomegaly. MUSCULOSKELETAL: Normal range of motion at all joints except right hip. No bony deformities or tenderness. No CVA tenderness. Pain on attempt at rom right hip. R leg shortened and rotated UPPER EXTREMITIES: 2+ pulses, warm, well-perfused. No cyanosis. No clubbing. No peripheral edema. LOWER EXTREMITIES: 2+ pulses, warm, well-perfused. No calf tenderness. No peripheral edema. NEUROLOGICAL: Cranial nerves II-XII intact. Normal speech. Normal gait. PSYCHIATRIC: Cooperative. Good eye contact. Appropriate mood and affect. SKIN: Warm, dry, normal turgor, no rashes or lesions noted, normal capillary refill. Laboratory Results - last 24 hr 3 04/14/17 04/14/17 04/14/17 20:10 20:10 23:10 WBC 13.3 H D RBC 3.00 L D Hgb 9.6 L D Hct 28.7 L D MCV 95.8 MCH 32.0 MCHC 33.4 RDW 14.9 Plt Count 436 H D MPV 8.6 Neutrophils % 82.5 D Lymphocytes % 6.9 L D Monocytes % 9.4 Eosinophils % 0.6 Basophils % 0.6 Sodium 136 Potassium 4.6 Chloride 101 Carbon Dioxide 29 Anion Gap 6 L BUN 33 H D Creatinine 2.5 H D Creat Clearance w eGFR 24.55 Random Glucose 167 H D Calcium 8.7 Total Bilirubin 1.2 H D AST 39 H D ALT 35 D Alkaline Phosphatase 126 H D Total Protein 6.7 Albumin 3.3 L Urine Color Dkyellow Urine Appearance Cloudy Urine pH 5.0 Ur Specific [place] 1.012 Urine Protein Negative Urine Glucose (UA) 1+ H Urine Ketones 1+ H Urine Blood Negative Urine Nitrite Negative Urine Bilirubin Negative Urine Urobilinogen Negative ECG Normal sinus rhythm vent rate 94, QTC 572 RBBB, LAFB poor baseline, difficult to interpret, possible TWI 2,3,aVF ASSESSMENT/PLAN: 86yM with PMH dementia, glaucoma presented to the ED with right hip pain s/p ORIF 2 weeks ago. Right hip prosthesis displacement vs periprosthetic fracture - will need to go to OR for revision - CXR ordered preop - ortho consult - morphine 1mg q4h ivp prn for pain Acute renal failure - given 1L ns in ED - cont gentle hydration NS 75cc/hr - repeat BMP in am, if not improving, renal consult dementia with behavioral disturbance - given prolonged QTC will dc antipsychotics - repeat ECG in am DVT PPX - lovenox 30mg sc daily, hold if going to OR FEN - NS @ 75cc/hr - bmp in am - regular diet Dispo: pt currently requires inpatient management of his emergent medical problems. Visit type - Emergency Visit Emergency Visit: Yes ED Registration Date: 04/14/17 Care time: The patient presented to the Emergency Department on the above date and was hospitalized for further evaluation of their emergent condition. - New Patient This patient is new to me today: Yes Date on this admission: 04/15/17 - Critical Care Critical Care patient: No
[2017-04-15 07:24] LABS: BASO % 0.4 % (0-2.0); EOS % 0.9 % (0-4.5); HEMATOCRIT 25.1 % (35.4-49); HEMOGLOBIN 8.3 GM/dL (11.7-16.9); LYMPH % 6.9 % (8-40); MCH 32.2 pg (25.7-33.7); MCHC 33.2 g/dl (32.0-35.9); MEAN CELL VOLUME 96.7 fl (80-96); MEAN PLT VOLUME 8.6 fl (7.5-11.1); MONO % 8.5 % (3.8-10.2); NEUT % 83.3 % (42.8-82.8); PLATELET COUNT 364 K/MM3 (134-434); RBC 2.59 M/mm3 (4.00-5.60); RDW 15.1 % (11.9-15.9); WHITE BLOOD COUNT 11.7 K/mm3 (4.0-10.0)
[2017-04-15 07:52] LABS: ANION GAP 10 (8-16); BLOOD UREA NITROGEN 31 mg/dL (7-18); CALCIUM 8.1 mg/dL (8.5-10.1); CHLORIDE 105 mmol/L (98-107); CO2 25 mmol/L (21-32); CREATININE 1.9 mg/dL (0.7-1.3); GLUCOSE,RANDOM 151 mg/dL (74-106); PHOSPHOROUS 4.3 mg/dL (2.5-4.9); POTASSIUM 4.2 mmol/L (3.5-5.1); SODIUM 140 mmol/L (136-145)
--- NOTE | 2017-04-15 08:59 | PN ---
Progress Note (short form) - Note Progress Note: Patient needs an orthopedica repair of hip where he had previous surgery in [facility]. Patient at this point will benefit from an orthopedic repair ad this out weighs the risk. Patient has no previous history of cardiac disease and is considered low risk for surgery.
[2017-04-15] MEDS ORDERED: amLODIPine BESYLATE 10 MG TABLET (FP) PO SCH (10:00)
[2017-04-15] MEDS ORDERED: TIMOLOL 0.5% OPHTHALMIC SOL 5 ML BOTTLE OU SCH (10:00)
[2017-04-15] MEDS ORDERED: OLANZapine 2.5 MG TABLET PO SCH (10:00)
[2017-04-15] MEDS ORDERED: BRIMONIDINE TARTRATE 0.2% OPHTHALMIC 5 ML BOTTLE OU SCH (10:00)
[2017-04-15] MEDS ORDERED: PATIENT'S OWN MEDICATION (NON-FORMULARY) (Dorzolamide Hcl/Timolol Maleat [Cosopt Eye Drops OU SCH (10:00)
[2017-04-15] MEDS ORDERED: ENOXAPARIN NA (PORCINE) 30 MG/0.3 ML DISP.SYRIN SQ SCH (10:00)
[2017-04-15] MEDS ORDERED: DORZOLAMIDE 2% HCL OPHTHALMIC SOLUTION 10 ML BOTTLE OU SCH (10:00)
--- NOTE | 2017-04-15 11:01 | PN ---
Progress Note (short form) - Note Progress Note: ID Consult dictated Periprosthetic fracture R femur Leukocytosis For surgical revision Obtain Blood c/s, ESR, CRP Operative cultures
[2017-04-15 11:15] VITALS: BMI 21.8
[2017-04-15] MEDS ORDERED: FLU VACCINE QUAD 60 MCG/0.5 ML (MDV 17-18) IM ONE (11:15)
[2017-04-15] MEDS ORDERED: PT OWN MED DRAWER 7, Y5N ONE (11:24)
--- NOTE | 2017-04-15 11:33 | CONS ---
INFECTIOUS DISEASE CONSULTATION DATE OF CONSULTATION: 04/15/2017 REASON FOR CONSULTATION: The patient is an 86-year-old male who is evaluated for leukocytosis and hip fracture. HISTORY OF PRESENT ILLNESS: History is obtained from the chart as he cannot give a history secondary to dementia. Additional history was obtained from the son-in-law by phone. The patient had gone down to [facility] approximately 2 months ago. Approximately 2 weeks ago, he fell, sustaining trauma to his right hip. He was found to have a right femoral fracture. The patient underwent a Gamma nail operation in [facility]. He had apparently been in some sort of rehab for the past 1-2 weeks before flying back to [place] on . He was brought to the emergency room because of increased pain in the right hip and inability to bear weight. An x-ray shows a periprosthetic fracture of the right femur. He is scheduled to have a revision of his right hip fracture. His course has been complicated by an elevated white blood cell count. He has remained afebrile. No reports of drainage or evidence of postop wound infection. No reported fever or chills. PAST MEDICAL HISTORY: Positive for dementia and glaucoma. PAST SURGICAL HISTORY: Status post right hip surgery approximately 2 weeks ago. ALLERGIES: No known allergies. HOME MEDICATIONS: Include Norvasc, Alphagan, Zyprexa, Seroquel, Travatan. SOCIAL HISTORY: Lives in [place] with family members. Recent travel to [facility] as noted. No documented tobacco or alcohol use history. SYSTEMS REVIEW: Neurologic: Positive for dementia. Cardiac: Negative chest pain or palpitations. Respiratory: Negative cough or sputum production. Gastrointestinal: Negative vomiting or diarrhea. Genitourinary: Negative for urinary tract infection. LABORATORY DATA: White count 11.7; white count on admission 13.3. Hematocrit 25.1; platelet count 364. BUN 31, creatinine 1.9. Total bilirubin 1.2, alkaline phosphatase 126, AST 39. Urinalysis: Negative leukocyte esterase. Chest x-ray: No evidence of active disease. PHYSICAL EXAMINATION: General: He is lethargic, poorly responsive. Vital Signs: Temperature 97.6; blood pressure 118/66; pulse 70, regular; respirations 18 per minute. HEENT: Sclerae are anicteric. Heart: Sounds S1, S2. Lungs: Poor inspiratory effort, grossly clear. Abdomen: Soft. No tenderness elicited. Extremities: Lower extremity edema 1+. The right lower extremity is shortened and externally rotated. There is a surgical wound present on the right hip with sutures in place. There is no erythema or drainage noted. No tenderness elicited. There is an area of ecchymosis around the surgical wound. IMPRESSION: 1. Periprosthetic fracture of the right femur. 2. Leukocytosis, probable leukemoid reaction. 3. Surgical revision. RECOMMENDATIONS: We will order blood cultures; obtain sedimentation rate, C-reactive protein, operative cultures; empiric antibiotic therapy after operative cultures obtained. Will follow. Thank you for the kind referral. CHAVEZ FERNANDEZ M.D. [id number]
[2017-04-15 12:23] LABS: INR 1.25 (0.82-1.09); PROTHROMBIN TIME (PATIENT) 14.1 SEC (9.98-11.88)
--- NOTE | 2017-04-15 13:00 | PN ---
Progress Note, Physician Chief Complaint: ASLEEP SON BEDSIDE RECORDS AND NOTES REVIEWED - Current Medication List Current Medications: Active Medications Amlodipine Besylate (Norvasc -) 10 mg PO DAILY REPLACED BY [facility] Last Admin: 04/15/17 11:10 Dose: Not Given Brimonidine Tartrate (Alphagan 0.2% -) 1 drop OU DAILY REPLACED BY [facility] Dorzolamide HCl (Trusopt 2%) 1 drop OU BID REPLACED BY [facility] Enoxaparin Sodium (Lovenox -) 30 mg SQ DAILY REPLACED BY [facility] Last Admin: 04/15/17 09:59 Dose: Not Given Sodium Chloride (Normal Saline -) 1,000 mls @ 75 mls/hr IV ASDIR REPLACED BY [facility] Last Admin: 04/15/17 01:00 Dose: 75 mls/hr Latanoprost (Xalatan 0.005% Eye Drops -) 1 drop OU DAILY@1800 SHANDA Morphine Sulfate (Morphine Sulfate) 1 mg IVPUSH Q4H PRN PRN Reason: PAIN Timolol Maleate (Timoptic 0.5%) 1 drop OU BID REPLACED BY [facility] - Objective Vital Signs: Vital Signs Temperature 97.3 F L 04/15/17 10:43 Pulse Rate 110 H 04/15/17 10:43 Respiratory Rate 18 04/15/17 10:43 Blood Pressure 114/69 04/15/17 10:43 O2 Sat by Pulse Oximetry (%) 95 04/15/17 10:43 Constitutional: Yes: Mild Distress Eyes: Yes: WNL HENT: Yes: WNL Neck: Yes: WNL Cardiovascular: Yes: WNL Respiratory: Yes: WNL Gastrointestinal: Yes: WNL Genitourinary: Yes: Incontinence Musculoskeletal: Yes: Muscle Weakness Extremities: Yes: Other Edema: No Peripheral Pulses WNL: Yes Integumentary: Yes: Bruising, Other Wound/Incision: Yes: Dressing Dry and Intact Neurological: Yes: Confusion, Pre-Existing Deficit, Unsteady Gait ...Motor Strength: LLE, RLE Psychiatric: Yes: Other Labs: CBC, BMP 04/15/17 06:37 04/15/17 06:37 INR, PTT INR 1.25 (0.82-1.09) H 04/15/17 10:52 Problem List - Problems (1) Inability to ambulate due to hip Code(s): R26.2 - DIFFICULTY IN WALKING, NOT ELSEWHERE CLASSIFIED (2) Status post hip surgery Code(s): Z98.890 - OTHER SPECIFIED POSTPROCEDURAL STATES (3) Surgical complication Code(s): T81.9XXA - UNSPECIFIED COMPLICATION OF PROCEDURE, INITIAL ENCOUNTER Qualifiers: Surgical complication system/body Area: musculoskeletal system Bone affected by surgical complication: femur Laterality: right (4) B12 deficiency Code(s): E53.8 - DEFICIENCY OF OTHER SPECIFIED B GROUP VITAMINS (5) Dementia Code(s): F03.90 - UNSPECIFIED DEMENTIA WITHOUT BEHAVIORAL DISTURBANCE Qualifiers: Dementia type: Alzheimer's disease Assessment/Plan SURGERY OTHOPEDICS TODAY MEDICALLY CLEARED ANEMIA MONITOR H/H LEUKOCYTES ID CONSULT INFECTED WOUND? DVT PROPHYLAXIS
[2017-04-15] MEDS ORDERED: ceFAZolin SODIUM 1 GM VIAL ONE ×2 (15:26→16:16)
[2017-04-15] MEDS ORDERED: VANCOMYCIN 1,000 MG VIAL (RESTRICTED TO ID ONLY) ONE (15:26)
--- NOTE | 2017-04-15 15:33 | CON.CARD ---
Consult Consult Specialty:: Cardiology Referred by:: Bradley Reason for Consultation:: Preop - History of Present Illness Chief Complaint: Hip pain History of Present Illness: 86 year old male with a pmhx of glaucoma and dementia with recent mechanical fall in [facility] s/p hip surgery. Has been in pain and unable to bear weight since so returned home and presented to ER here. Planned for hip surgery. Patient is sedated at this time on meds. Family reports no cardiac history. No complaints of chest pain or sob. No syncope. Prior to this fall could walk long distances with no complaints. 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 Psych: Yes: Anxiety, Other - Alcohol/Substance Use Hx Alcohol Use: Yes (occasional) - Smoking History Smoking history: Never smoked - Social History Usual Living Arrangement: Alone Home Medications - Allergies Allergies/Adverse Reactions: Allergies Allergy/AdvReac Type Severity Reaction Status Date / Time No Known Allergies Allergy Verified 04/14/17 18:43 - Home Medications Home Medications: Ambulatory Orders Amlodipine Besylate [Norvasc -] 10 mg PO DAILY 04/14/17 Brimonidine Tartrate [Alphagan 0.2% -] 1 drop OU DAILY 04/14/17 Dorzolamide HCl/Timolol Maleat [Cosopt Eye Drops] 10 ml OP DAILY 04/14/17 Olanzapine [Zyprexa -] 2.5 mg PO DAILY 04/14/17 Quetiapine Fumarate [Seroquel -] 25 mg PO HS 04/14/17 Travoprost [Travatan Z] 2.5 ml OP DAILY 04/14/17 Vital Signs: Vital Signs Temperature 97.3 F L 04/15/17 10:43 Pulse Rate 110 H 04/15/17 10:43 Respiratory Rate 18 04/15/17 10:43 Blood Pressure 114/69 04/15/17 10:43 O2 Sat by Pulse Oximetry (%) 95 04/15/17 10:43 Constitutional: Yes: No Distress, Other (sedated) Neck: Yes: Supple Respiratory: Yes: CTA Bilaterally Gastrointestinal: Yes: Normal Bowel Sounds, Soft Cardiovascular: Yes: Regular Rate and Rhythm JVD: No Carotid Bruit: No PMI: Non-Displaced Heart Sounds: Yes: S1, S2 Murmur: No: Systolic Murmur Edema: No - Other Data Labs, Other Data: CBC, BMP 04/15/17 06:37 04/15/17 06:37 INR, PTT INR 1.25 (0.82-1.09) H 04/15/17 10:52 Imaging - Results Chest X-ray: Report Reviewed EKG: Image Reviewed Assessment/Plan 86 year old male with a pmhx of glaucoma and dementia with recent mechanical fall in [facility] s/p hip surgery. Has been in pain and unable to bear weight since so returned home and presented to ER here. Planned for hip surgery. 1) Preop Planned for hip surgery for hip fracture. No known cardiac history. EKG with sinus rhythm with RBBB, lafb, and pvc's. No chest pain or dyspnea as per family. No signs of chf on exam. No significant murmurs on exam. No cardiac contraindications to surgery. Would not add beta alessandra acutely prior to surgery.
[2017-04-15] MEDS ORDERED: BUPIVACAINE HCL/PF 0.5% (5MG/ML) 10 ML VIAL ONE (15:46)
[2017-04-15] MEDS ORDERED: MIDAZOLAM HCL 2 MG/2 ML SINGLE DOSE VIAL ONE ×2 (15:56→17:21)
[2017-04-15] MEDS ORDERED: ceFAZolin SODIUM 1 GM VIAL IVPB ONE (16:14)
--- NOTE | 2017-04-15 17:37 | OP ---
Operative Note - Note: Operative Date: 04/15/17 (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
--- NOTE | 2017-04-15 17:50 | CONS ---
DATE OF CONSULTATION: 04/15/2017 ORTHOPEDICS CONSULTATION/[facility] HISTORY OF PRESENT ILLNESS: Patient is an 86-year-old male 2 weeks status post fall while traveling in [facility]. He underwent an open reduction internal fixation of that fracture with a sliding hip screw and plate. Patient returns here to the [facility] complaining of a great deal of pain and came to the emergency room. In the ER, they revealed the lag screw was no longer in the femoral head and admitted the patient for the operation. On physical examination, he still has the sutures in from surgery. No evidence of drainage or erythema but positive ecchymosis throughout. The thigh is somewhat swollen, calf is soft, nontender, negative Jg sign, good motion in the ankle and toes, but increased pain with any range of motion with his right hip. His family states he has significant dementia and is a marginal ambulator. X-rays which I reviewed do show the screw and plate in place with the plate and 3 screws on the proximal femur but the screws no longer in the femoral head. The acetabulum seems to be intact with no arthritis. 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 PLAN: Risks, benefits, and alternatives discussed with the family in great detail. I will bring the patient back to the OR for removal of the hardware and conversion to a yazidi modular hemiarthroplasty. HOWARD GARCIA M.D. [id number]
--- NOTE | 2017-04-15 17:56 | CONSULT ---
Consult Consult Specialty:: Nephrology Reason for Consultation:: REBEKA - History of Present Illness Chief Complaint: right hip pain History of Present Illness: Pt is an 86 year old male with pmhx of dementia who presents to the ER with right hip pain. He had right hip surgery in [facility] about 2 weeks ago. I was caleed to evaluate him for REBEKA as he was found to have elevated creatinine. He is a poor historian. He was taken to the OR to have his hip repaired. Family deny history of kidney disease. Pt does have history of HTN. 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 Cardio/Vascular: Yes: HTN Psych: Yes: Anxiety, Other - Past Surgical History Additional Surgical History: hip surgery - Alcohol/Substance Use Hx Alcohol Use: Yes (occasional) - Smoking History Smoking history: Never smoked - Social History Usual Living Arrangement: Alone Home Medications - Allergies Allergies/Adverse Reactions: Allergies Allergy/AdvReac Type Severity Reaction Status Date / Time No Known Allergies Allergy Verified 04/14/17 18:43 - Home Medications Home Medications: Ambulatory Orders Amlodipine Besylate [Norvasc -] 10 mg PO DAILY 04/14/17 Brimonidine Tartrate [Alphagan 0.2% -] 1 drop OU DAILY 04/14/17 Dorzolamide HCl/Timolol Maleat [Cosopt Eye Drops] 10 ml OP DAILY 04/14/17 Olanzapine [Zyprexa -] 2.5 mg PO DAILY 04/14/17 Quetiapine Fumarate [Seroquel -] 25 mg PO HS 04/14/17 Travoprost [Travatan Z] 2.5 ml OP DAILY 04/14/17 Family Disease History - Family Disease History Family History: Denies Review of Systems - Review of Systems Constitutional: reports: Malaise Eyes: reports: No Symptoms HENT: reports: No Symptoms Neck: reports: No Symptoms Cardiovascular: reports: No Symptoms Respiratory: reports: No Symptoms Gastrointestinal: reports: No Symptoms Genitourinary: reports: No Symptoms Musculoskeletal: reports: Joint Pain Neurological: reports: Pre-Existing Deficit Endocrine: reports: No Symptoms Physical Exam Vital Signs: Vital Signs Temperature 97.6 F 04/15/17 15:44 Pulse Rate 74 04/15/17 15:44 Respiratory Rate 18 04/15/17 10:43 Blood Pressure 114/69 04/15/17 10:43 O2 Sat by Pulse Oximetry (%) 95 04/15/17 10:43 Constitutional: Yes: Calm Eyes: Yes: Conjunctiva Clear Cardiovascular: Yes: S1, S2 Respiratory: Yes: CTA Bilaterally Gastrointestinal: Yes: Soft Renal/: Yes: Incontinence Musculoskeletal: Yes: Other (hip pain) Edema: No Wound/Incision: Yes: Dressing Dry and Intact Neurological: Yes: Other (drowsy) Labs: CBC, BMP 04/15/17 06:37 04/15/17 06:37 Laboratory Tests 04/14/17 04/14/17 04/14/17 20:10 20:10 23:10 WBC 13.3 H D Hgb 9.6 L D PT with INR INR Anion Gap 6 L BUN 33 H D Creatinine 2.5 H D Random Glucose 167 H D Urine Glucose (UA) 1+ H Urine Ketones 1+ H 04/15/17 04/15/17 04/15/17 06:37 06:37 10:52 WBC 11.7 H Hgb 8.3 L D PT with INR 14.10 H INR 1.25 H Anion Gap 10 BUN 31 H Creatinine 1.9 H D Random Glucose 151 H Urine Glucose (UA) Urine Ketones Imaging - Results Chest X-ray: Report Reviewed Cat Scan: Report Reviewed Problem List - Problems (1) REBEKA (acute kidney injury) Code(s): N17.9 - ACUTE KIDNEY FAILURE, UNSPECIFIED (2) Inability to ambulate due to hip Code(s): R26.2 - DIFFICULTY IN WALKING, NOT ELSEWHERE CLASSIFIED (3) Status post hip surgery Code(s): Z98.890 - OTHER SPECIFIED POSTPROCEDURAL STATES (4) Dementia Code(s): F03.90 - UNSPECIFIED DEMENTIA WITHOUT BEHAVIORAL DISTURBANCE Qualifiers: Dementia type: Alzheimer's disease Assessment/Plan Current Medications Generic Name Dose Route Start Last Admin Trade Name Freq PRN Reason Stop Dose Admin Amlodipine Besylate 10 mg 04/15/17 10:00 04/15/17 11:10 Norvasc - PO Not Given DAILY SHANDA Brimonidine Tartrate 1 drop 04/15/17 10:00 04/15/17 14:33 Alphagan 0.2% - OU 1 drop DAILY SHANDA Administration Dorzolamide HCl 1 drop 04/15/17 10:00 04/15/17 14:34 Trusopt 2% OU 1 drop BID SHANDA Administration Enoxaparin Sodium 30 mg 04/16/17 10:00 Lovenox - SQ DAILY SHANDA Sodium Chloride 1,000 mls @ 75 mls/hr 04/15/17 00:30 04/15/17 01:00 Normal Saline - IV 75 mls/hr ASDIR SHANDA Administration Cefazolin Sodium 50 mls @ 100 mls/hr 04/15/17 23:00 Ancef 1 Gm Premixed Ivpb - IVPB 04/16/17 02:29 Q8H-IV SHANDA Latanoprost 1 drop 04/15/17 18:00 Xalatan 0.005% Eye Drops - OU DAILY@1800 SHANDA Morphine Sulfate 1 mg 04/15/17 00:21 Morphine Sulfate IVPUSH Q4H PRN PAIN Timolol Maleate 1 drop 04/15/17 10:00 04/15/17 14:33 Timoptic 0.5% OU 1 drop BID SHANDA Administration Impression 1. REBEKA 2. hip fracture 3. htn 4. dementia 5. anemia Plan - renal function is improving with hydration - pt had repair of hip - repeat labs in am - cont with hydration - avoid nsaids - monitor bp - will follow Dr Rubi
[2017-04-15] MEDS ORDERED: LATANOPROST 0.005% OPHTH SOLN 2.5ML BOTTLE OU SCH ×2 (18:00)
--- NOTE | 2017-04-15 18:04 | OP ---
DATE OF OPERATION: 04/15/2017 PREOPERATIVE DIAGNOSIS: Failed open reduction internal fixation of a right intratrochanteric hip fracture. POSTOPERATIVE DIAGNOSIS: Failed open reduction internal fixation of a right intratrochanteric hip fracture. PROCEDURE: Removal of hardware conversion to a jain modular right hemiarthroplasty. SURGEON ATTENDING: Bam Lucas M.D. HEAVY EQUIPMENT SALES MANAGER: Garrick Martins ANESTHESIA: Spinal. CLOSURE: Religious modular hemiarthroplasty with a 16 standard stem, a smallest body, and a 50 bipolar of the acetabulum, number 1 Vicryl for the capsule, medium deicer repairer pneumatic with cables for the trochanter, number 1 Vicryl fascia, 0 and 2-0 subcutaneous and 3-0 V-Loc for skin with skin glue. ESTIMATED BLOOD LOSS: Approximately 150 mL. COMPLICATIONS: None. CONDITION: To recovery room in stable condition. DESCRIPTION OF PROCEDURE: Patient taken to operating room on April 15, 2017. Spinal anesthesia was administered by the anesthesiologist. IV Kefzol administered prophylactically prior to the case. The patient placed in lateral decubitus position with all prominences well padded. The sutures from the previous surgery were removed. Right hip area was then prepped and draped in the usual sterile fashion. An approximately 12 cm incision over the previous incision was then propagating proximally and posteriorly was used to gain access to the hip. Hemostasis was achieved using Bovie cautery and sharp dissection was carried down to the level of the fascia. The fascia was opened the entire length of the incision, spreading the gluteus chandu fibers in the direction of origin. The trochanter was lifted up, was completely non fixated. Some Prolene sutures holding it down were removed. The plate and screw and the head were removed easily. The lag screw was found to be not in the head at all and was sitting posteriorly. The capsule was opened slightly, as we were looking directly at the acetabulum. Corkscrew was used to remove the femoral head. The head was measured, and a 50 trial achieved good suction fit in the acetabulum. The proximal femur was smoothened with a rongeur and a saw to have a flat surface. The trochanter was hollowed out so that it would be able to be fixated, and the bone was saved for later bone grafting. The intramedullary canal of the femur was prepared using serial reamers, so a 16-mm reamer achieved good fill down to the appropriate level. A standard stem was then malleted into place. A smallest body trial with a 50 bipolar was clipped into place with the appropriate version and was reduced. Limb length was found to be equal to the contralateral side and range of motion was found to have excellent stability, marked flexion at 90 degrees of flexion with stable marked abduction, internal tension, and a positive hang test, negative telescoping. The trial body and head was removed. The real body was then cold welded and then screwed into place with the appropriate version. A 50 bipolar was then cold welded to the trunnion and the hip was reduced. Range of motion, stability, and limb length were as described previously. The hip was pulse antibiotic irrigated, vancomycin powder was placed inside the wound. A medium deicer repairer pneumatic was used to fixate the greater trochanter to the component with cables around the neck. Bone graft laterally was used to help in the healing process posteriorly. The fascia was then closed using number 1 Vicryl interrupted suture, 0 and 2-0 subcutaneous and 3-0 V-Loc for skin, sterile pressure dressing was applied followed by an Aquacel. Patient was placed in the supine position. Bilateral SCDs were applied as well as an abduction pillow. Patient awakened from anesthesia and transferred to recovery in stable condition. No complications. Estimated blood loss negligible. Edwin [id number]
[2017-04-15] MEDS: SODIUM CHLORIDE 1,000 ML IV SCH (20:15)
[2017-04-15] MEDS ORDERED: QUEtiapine FUMARATE 25 MG TABLET (FP) PO SCH (22:00)
[2017-04-15] MEDS: morphine CARPU-JECT 10 MG/1 ML DISP.SYRIN IVPUSH PRN (22:14)
[2017-04-15] MEDS: LATANOPROST 0.005% OPHTH SOLN 2.5ML BOTTLE OU SCH (22:16)
[2017-04-15] MEDS: TIMOLOL 0.5% OPHTHALMIC SOL 5 ML BOTTLE OU SCH (22:17)
[2017-04-15] MEDS: DORZOLAMIDE 2% HCL OPHTHALMIC SOLUTION 10 ML BOTTLE OU SCH (22:18)
[2017-04-15] MEDS ORDERED: CEFAZOLIN 1 GM/D5W 1 GM/50 ML BAG IVPB SCH (23:00)
[2017-04-15] MEDS ORDERED: CEFAZOLIN 1 GM/D5W 50 ML IVPB SCH (23:00)
[2017-04-15] MEDS: CEFAZOLIN 1 GM PUSH 1 GM/10 ML DISP.SYRIN IVPUSH SCH (23:26)
[2017-04-16] MEDS: CEFAZOLIN 1 GM PUSH 1 GM/10 ML DISP.SYRIN IVPUSH SCH ×2 (06:10→18:13)
[2017-04-16] MEDS: morphine CARPU-JECT 10 MG/1 ML DISP.SYRIN IVPUSH PRN ×2 (07:42→20:24)
[2017-04-16 08:15] LABS: MCH 31.9 pg (25.7-33.7); MCHC 32.6 g/dl (32.0-35.9); MEAN CELL VOLUME 97.9 fl (80-96); MEAN PLT VOLUME 8.6 fl (7.5-11.1); PLATELET COUNT 362 K/MM3 (134-434); RBC 2.17 M/mm3 (4.00-5.60); RDW 15.3 % (11.9-15.9); WHITE BLOOD COUNT 14.7 K/mm3 (4.0-10.0)
[2017-04-16 08:24] LABS: ANION GAP 9 (8-16); BLOOD UREA NITROGEN 30 mg/dL (7-18); CALCIUM 8.1 mg/dL (8.5-10.1); CHLORIDE 108 mmol/L (98-107); CO2 26 mmol/L (21-32); CREATININE 1.3 mg/dL (0.7-1.3); GLUCOSE,RANDOM 152 mg/dL (74-106); MAGNESIUM 1.7 mg/dL (1.8-2.4); PHOSPHOROUS 3.1 mg/dL (2.5-4.9); POTASSIUM 4.6 mmol/L (3.5-5.1); SODIUM 143 mmol/L (136-145)
[2017-04-16 08:41] LABS: HEMATOCRIT 21.2 % (35.4-49); HEMOGLOBIN 6.9 GM/dL (11.7-16.9)
--- NOTE | 2017-04-16 09:33 | EKG ---
Test Reason : Blood Pressure : / mmHG Vent. Rate : 076 BPM Atrial Rate : 076 BPM P-R Int : 158 ms QRS Dur : 134 ms QT Int : 456 ms P-R-T Axes : 035 -56 020 degrees QTc Int : 513 ms SINUS RHYTHM WITH FREQUENT PREMATURE VENTRICULAR COMPLEXES RIGHT BUNDLE BRANCH BLOCK LEFT ANTERIOR FASCICULAR BLOCK BIFASCICULAR BLOCK ABNORMAL ECG Confirmed by MD John, Shiv ([id number]) on 04/16/2017 9:33:28 AM Referred By: Milagros WALDRON Confirmed By:Shiv Lopez MD
--- NOTE | 2017-04-16 09:56 | PN ---
Progress Note (short form) - Note Progress Note: Ortho Pt seen and examined s/p right conversion hip jefferson pod #1 Selected Entries 04/16/17 06:25 Temperature 97.9 F Pulse Rate 90 Respiratory 18 Rate Blood Pressure 127/61 Laboratory Tests 04/16/17 07:00 WBC 14.7 H Hgb 6.9 L* D Hct 21.2 L D Plt Count 362 dressing c/d/i, calf soft, nt a/p transfuse 1 unit prbcs PT if able dvt ppx pain control d/c planning
[2017-04-16] MEDS ORDERED: ENOXAPARIN NA (PORCINE) 30 MG/0.3 ML DISP.SYRIN SQ SCH (10:00)
--- NOTE | 2017-04-16 10:02 | PN ---
Progress Note, Physician History of Present Illness: Awake, confused POD #1 removal of R hip orthopedic hardware and conversion to hemiarthroplasty Operative findings discussed with Dr. Lucas- hip not clinically infected Afebrile WBC elevated - Current Medication List Current Medications: Active Medications Amlodipine Besylate (Norvasc -) 10 mg PO DAILY [facility] Brimonidine Tartrate (Alphagan 0.2% -) 1 drop OU DAILY [facility] Dorzolamide HCl (Trusopt 2%) 1 drop OU BID [facility] Last Admin: 04/15/17 22:18 Dose: 1 drop Enoxaparin Sodium (Lovenox -) 30 mg SQ DAILY [facility] Fentanyl (Sublimaze Injection -) 25 mcg IVPUSH [id number] PRN PRN Reason: PAIN Sodium Chloride (Normal Saline -) 1,000 mls @ 75 mls/hr IV ASDIR [facility] Last Admin: 04/15/17 20:15 Dose: 75 mls/hr Latanoprost (Xalatan 0.005% Eye Drops -) 1 drop OU DAILY@1800 [facility] Last Admin: 04/15/17 22:16 Dose: 1 drop Morphine Sulfate (Morphine Injection -) 1 mg IVPUSH Q4H PRN PRN Reason: PAIN Last Admin: 04/16/17 07:42 Dose: 1 mg Pneumococcal 13-Valent Conj Vacc (Prevnar 13 Syringe -) 0.5 ml IM .ONCE ONE Stop: 04/16/17 09:11 Timolol Maleate (Timoptic 0.5%) 1 drop OU BID [facility] Last Admin: 04/15/17 22:17 Dose: 1 drop - Objective Vital Signs: Vital Signs Temperature 97.9 F 04/16/17 06:25 Pulse Rate 90 04/16/17 06:25 Respiratory Rate 18 04/16/17 06:25 Blood Pressure 127/61 04/16/17 06:25 O2 Sat by Pulse Oximetry (%) 98 04/15/17 21:00 Constitutional: Yes: No Distress Eyes: Yes: Conjunctiva Clear Cardiovascular: Yes: Regular Rate and Rhythm, S1, S2 Respiratory: Yes: CTA Bilaterally Gastrointestinal: Yes: Normal Bowel Sounds, Soft. No: Tenderness Extremities: Yes: Other (dressing in place R hip + tenderness to palp) Labs: CBC, BMP 04/16/17 07:00 04/16/17 07:00 INR, PTT INR 1.25 (0.82-1.09) H 04/15/17 10:52 Assessment/Plan S/P removal of orthopedic hardware and conversion ro hemiarthroplasty Leukocytosis ? leukemoid rxn Azotemia- improved Discussed with Dr Lucas Continue antibiotic prophylaxis additional 24hr, then observe off
[2017-04-16] MEDS: ENOXAPARIN NA (PORCINE) 30 MG/0.3 ML DISP.SYRIN SQ SCH (10:33)
[2017-04-16] MEDS: TIMOLOL 0.5% OPHTHALMIC SOL 5 ML BOTTLE OU SCH ×2 (10:35→21:42)
[2017-04-16] MEDS: DORZOLAMIDE 2% HCL OPHTHALMIC SOLUTION 10 ML BOTTLE OU SCH ×2 (10:36→21:42)
[2017-04-16] MEDS: BRIMONIDINE TARTRATE 0.2% OPHTHALMIC 5 ML BOTTLE OU SCH (10:36)
[2017-04-16] MEDS: amLODIPine BESYLATE 10 MG TABLET (FP) PO SCH (10:38)
[2017-04-16] MEDS ORDERED: PT OWN MED DRAWER 7, Y5N ONE ×3 (10:40→21:36)
--- NOTE | 2017-04-16 11:08 | PN ---
Progress Note, Physician Chief Complaint: ASLEEP RESTRAINTS USED FOR AGITATION - Current Medication List Current Medications: Active Medications Amlodipine Besylate (Norvasc -) 10 mg PO DAILY [facility] Last Admin: 04/16/17 10:38 Dose: Not Given Brimonidine Tartrate (Alphagan 0.2% -) 1 drop OU DAILY [facility] Last Admin: 04/16/17 10:36 Dose: 1 drop Dorzolamide HCl (Trusopt 2%) 1 drop OU BID [facility] Last Admin: 04/16/17 10:36 Dose: 1 drop Enoxaparin Sodium (Lovenox -) 30 mg SQ DAILY [facility] Last Admin: 04/16/17 10:33 Dose: Not Given Fentanyl (Sublimaze Injection -) 25 mcg IVPUSH [id number] PRN PRN Reason: PAIN Sodium Chloride (Normal Saline -) 1,000 mls @ 75 mls/hr IV ASDIR [facility] Last Admin: 04/15/17 20:15 Dose: 75 mls/hr Cefazolin Sodium (Ancef -) 1 gm in 10 mls @ 120 mls/hr IVPUSH Q8H-IV [facility] Latanoprost (Xalatan 0.005% Eye Drops -) 1 drop OU DAILY@1800 [facility] Last Admin: 04/15/17 22:16 Dose: 1 drop Morphine Sulfate (Morphine Injection -) 1 mg IVPUSH Q4H PRN PRN Reason: PAIN Last Admin: 04/16/17 07:42 Dose: 1 mg Pneumococcal 13-Valent Conj Vacc (Prevnar 13 Syringe -) 0.5 ml IM .ONCE ONE Stop: 04/16/17 09:11 Timolol Maleate (Timoptic 0.5%) 1 drop OU BID [facility] Last Admin: 04/16/17 10:35 Dose: 1 drop - Objective Vital Signs: Vital Signs Temperature 97.9 F 04/16/17 06:25 Pulse Rate 90 04/16/17 06:25 Respiratory Rate 18 04/16/17 06:25 Blood Pressure 127/61 04/16/17 06:25 O2 Sat by Pulse Oximetry (%) 98 04/15/17 21:00 Constitutional: Yes: Mild Distress Eyes: Yes: WNL HENT: Yes: WNL Neck: Yes: WNL Cardiovascular: Yes: WNL Respiratory: Yes: WNL Gastrointestinal: Yes: WNL Genitourinary: Yes: Incontinence Musculoskeletal: Yes: Muscle Weakness Extremities: Yes: WNL Edema: No Peripheral Pulses WNL: Yes Integumentary: Yes: WNL Wound/Incision: Yes: Dressing Dry and Intact Neurological: Yes: Confusion, Pre-Existing Deficit ...Motor Strength: LLE, RLE Psychiatric: Yes: Other Labs: CBC, BMP 04/16/17 07:00 04/16/17 07:00 INR, PTT INR 1.25 (0.82-1.09) H 04/15/17 10:52 Problem List - Problems (1) Inability to ambulate due to hip Code(s): R26.2 - DIFFICULTY IN WALKING, NOT ELSEWHERE CLASSIFIED (2) Status post hip surgery Code(s): Z98.890 - OTHER SPECIFIED POSTPROCEDURAL STATES (3) Surgical complication Code(s): T81.9XXA - UNSPECIFIED COMPLICATION OF PROCEDURE, INITIAL ENCOUNTER Qualifiers: Surgical complication system/body Area: musculoskeletal system Bone affected by surgical complication: femur Laterality: right (4) B12 deficiency Code(s): E53.8 - DEFICIENCY OF OTHER SPECIFIED B GROUP VITAMINS (5) Dementia Code(s): F03.90 - UNSPECIFIED DEMENTIA WITHOUT BEHAVIORAL DISTURBANCE Qualifiers: Dementia type: Alzheimer's disease Assessment/Plan RIGHT HEMIATHOPLASTY POD 1 PT EVAL RESTRAINTS NEEDED ZYPREXA RESTARTED PAIN MEDS DVT PROPHLAXIS TRANSFUSE 2 UNITS PRBC
--- NOTE | 2017-04-16 12:29 | PN ---
Progress Note (short form) - Note Progress Note: Anesthesiology Post-op POD#1 s/p right hemiarthroplasty of the hip under spinal. Pt. is resting comfortably, denies pain. He is able to move all extremities. Pt. has a significant drop in H&H today; he is currently receiving a transfusion of PRBC. Otherwise, VSS.
--- NOTE | 2017-04-16 13:20 | EKG ---
Test Reason : Blood Pressure : / mmHG Vent. Rate : 094 BPM Atrial Rate : 094 BPM P-R Int : 146 ms QRS Dur : 130 ms QT Int : 458 ms P-R-T Axes : 071 -64 -03 degrees QTc Int : 572 ms POOR DATA QUALITY, INTERPRETATION MAY BE ADVERSELY AFFECTED NORMAL SINUS RHYTHM RIGHT BUNDLE BRANCH BLOCK LEFT ANTERIOR FASCICULAR BLOCK BIFASCICULAR BLOCK ABNORMAL ECG WHEN COMPARED WITH ECG OF 18-DEC-2016 08:23, ABERRANT CONDUCTION IS NO LONGER PRESENT QT HAS LENGTHENED Confirmed by TEOFILO CHAVEZ MD ([id number]) on 04/16/2017 1:19:55 PM Referred By: Confirmed By:TEOFILO CAHVEZ MD
--- NOTE | 2017-04-16 14:01 | PN ---
Progress Note, Physician Chief Complaint: S/p right hemarthroplasty No complaints but sedated on meds with restraints History of Present Illness: 86 year old male with a pmhx of glaucoma and dementia with recent mechanical fall in [facility] s/p hip surgery. Has been in pain and unable to bear weight since so returned home and presented to ER here. Planned for hip surgery. Patient is sedated at this time on meds. Family reports no cardiac history. No complaints of chest pain or sob. No syncope. Prior to this fall could walk long distances with no complaints. 04/15/16: right hemiarthroplasty - Current Medication List Current Medications: Active Medications Amlodipine Besylate (Norvasc -) 10 mg PO DAILY [facility] Last Admin: 04/16/17 10:38 Dose: Not Given Brimonidine Tartrate (Alphagan 0.2% -) 1 drop OU DAILY [facility] Last Admin: 04/16/17 10:36 Dose: 1 drop Dorzolamide HCl (Trusopt 2%) 1 drop OU BID [facility] Last Admin: 04/16/17 10:36 Dose: 1 drop Enoxaparin Sodium (Lovenox -) 30 mg SQ DAILY [facility] Last Admin: 04/16/17 10:33 Dose: Not Given Sodium Chloride (Normal Saline -) 1,000 mls @ 75 mls/hr IV ASDIR [facility] Last Admin: 04/15/17 20:15 Dose: 75 mls/hr Cefazolin Sodium (Ancef -) 1 gm in 10 mls @ 120 mls/hr IVPUSH Q8H-IV [facility] Latanoprost (Xalatan 0.005% Eye Drops -) 1 drop OU DAILY@1800 [facility] Last Admin: 04/15/17 22:16 Dose: 1 drop Morphine Sulfate (Morphine Injection -) 1 mg IVPUSH Q4H PRN PRN Reason: PAIN Last Admin: 04/16/17 07:42 Dose: 1 mg Olanzapine (Zyprexa -) 2.5 mg PO HS [facility] Pneumococcal 13-Valent Conj Vacc (Prevnar 13 Syringe -) 0.5 ml IM .ONCE ONE Stop: 04/16/17 09:11 Timolol Maleate (Timoptic 0.5%) 1 drop OU BID [facility] Last Admin: 04/16/17 10:35 Dose: 1 drop - Objective Vital Signs: Vital Signs Temperature 97.9 F 04/16/17 06:25 Pulse Rate 90 04/16/17 06:25 Respiratory Rate 18 04/16/17 06:25 Blood Pressure 127/61 04/16/17 06:25 O2 Sat by Pulse Oximetry (%) 98 04/15/17 21:00 Constitutional: Yes: Calm Neck: Yes: WNL Cardiovascular: Yes: Regular Rate and Rhythm, S1, S2. No: JVD Respiratory: Yes: CTA Bilaterally Edema: No Labs: CBC, BMP 04/16/17 07:00 04/16/17 07:00 INR, PTT INR 1.25 (0.82-1.09) H 04/15/17 10:52 Problem List - Problems (1) Status post hip surgery Code(s): Z98.890 - OTHER SPECIFIED POSTPROCEDURAL STATES Assessment/Plan 86 year old male with a pmhx of glaucoma and dementia with recent mechanical fall in [facility] s/p hip surgery. Has been in pain and unable to bear weight since so returned home and presented to ER here. Planned for hip surgery. 1) S/p hip surgery -Receiving blood transfusion for drop in h/h. No signs of chf on exam. Hold amlodipine if needed given drop in h/h No further cardiac testing at this time. As outpatient should have echocardiogram and follow up. Please re-consult if any new questions or clinical changes occur.
--- NOTE | 2017-04-16 15:35 | PN ---
Progress Note, Physician History of Present Illness: Pt seen and examined at bedside. He appears comfortable. - Current Medication List Current Medications: Active Medications Amlodipine Besylate (Norvasc -) 10 mg PO DAILY [facility] Last Admin: 04/16/17 10:38 Dose: Not Given Brimonidine Tartrate (Alphagan 0.2% -) 1 drop OU DAILY [facility] Last Admin: 04/16/17 10:36 Dose: 1 drop Dorzolamide HCl (Trusopt 2%) 1 drop OU BID [facility] Last Admin: 04/16/17 10:36 Dose: 1 drop Enoxaparin Sodium (Lovenox -) 30 mg SQ DAILY [facility] Last Admin: 04/16/17 10:33 Dose: Not Given Sodium Chloride (Normal Saline -) 1,000 mls @ 75 mls/hr IV ASDIR [facility] Last Admin: 04/15/17 20:15 Dose: 75 mls/hr Cefazolin Sodium (Ancef -) 1 gm in 10 mls @ 120 mls/hr IVPUSH Q8H-IV [facility] Latanoprost (Xalatan 0.005% Eye Drops -) 1 drop OU DAILY@1800 [facility] Last Admin: 04/15/17 22:16 Dose: 1 drop Morphine Sulfate (Morphine Injection -) 1 mg IVPUSH Q4H PRN PRN Reason: PAIN Last Admin: 04/16/17 07:42 Dose: 1 mg Olanzapine (Zyprexa -) 2.5 mg PO HS [facility] Pneumococcal 13-Valent Conj Vacc (Prevnar 13 Syringe -) 0.5 ml IM .ONCE ONE Stop: 04/16/17 09:11 Timolol Maleate (Timoptic 0.5%) 1 drop OU BID [facility] Last Admin: 04/16/17 10:35 Dose: 1 drop - Objective Vital Signs: Vital Signs Temperature 98.1 F 04/16/17 15:23 Pulse Rate 89 04/16/17 15:23 Respiratory Rate 20 04/16/17 10:00 Blood Pressure 119/51 04/16/17 15:23 O2 Sat by Pulse Oximetry (%) 99 04/16/17 09:00 Constitutional: Yes: Calm Eyes: Yes: Conjunctiva Clear HENT: Yes: Atraumatic Cardiovascular: Yes: S1, S2 Respiratory: Yes: CTA Bilaterally Gastrointestinal: Yes: Soft Genitourinary: Yes: Incontinence Musculoskeletal: Yes: Muscle Weakness, Other (dressing in place) Edema: No Neurological: Yes: Pre-Existing Deficit Labs: CBC, BMP 04/16/17 07:00 04/16/17 07:00 INR, PTT INR 1.25 (0.82-1.09) H 04/15/17 10:52 Problem List - Problems (1) REBEKA (acute kidney injury) Code(s): N17.9 - ACUTE KIDNEY FAILURE, UNSPECIFIED (2) Inability to ambulate due to hip Code(s): R26.2 - DIFFICULTY IN WALKING, NOT ELSEWHERE CLASSIFIED (3) Status post hip surgery Code(s): Z98.890 - OTHER SPECIFIED POSTPROCEDURAL STATES (4) Dementia Code(s): F03.90 - UNSPECIFIED DEMENTIA WITHOUT BEHAVIORAL DISTURBANCE Qualifiers: Dementia type: Alzheimer's disease Assessment/Plan Current Medications Generic Name Dose Route Start Last Admin Trade Name Freq PRN Reason Stop Dose Admin Amlodipine Besylate 10 mg 04/16/17 10:00 04/16/17 10:38 Norvasc - PO Not Given DAILY [facility] Brimonidine Tartrate 1 drop 04/16/17 10:00 04/16/17 10:36 Alphagan 0.2% - OU 1 drop DAILY [facility] Administration Dorzolamide HCl 1 drop 04/15/17 22:00 04/16/17 10:36 Trusopt 2% OU 1 drop BID [facility] Administration Enoxaparin Sodium 30 mg 04/16/17 10:00 04/16/17 10:33 Lovenox - SQ Not Given DAILY [facility] Sodium Chloride 1,000 mls @ 75 mls/hr 04/15/17 17:58 04/15/17 20:15 Normal Saline - IV 75 mls/hr ASDIR [facility] Administration Cefazolin Sodium 1 gm in 10 mls @ 120 mls/hr 04/16/17 18:00 Ancef - IVPUSH Q8H-IV [facility] Latanoprost 1 drop 04/15/17 18:00 04/15/17 22:16 Xalatan 0.005% Eye Drops - OU 1 drop DAILY@1800 [facility] Administration Morphine Sulfate 1 mg 04/15/17 17:58 04/16/17 07:42 Morphine Injection - IVPUSH 1 mg Q4H PRN Administration PAIN Olanzapine 2.5 mg 04/16/17 22:00 Zyprexa - PO HS [facility] Pneumococcal 13-Valent Conj Vacc 0.5 ml 04/16/17 09:10 Prevnar 13 Syringe - IM 04/16/17 09:11 .ONCE ONE Timolol Maleate 1 drop 04/15/17 22:00 04/16/17 10:35 Timoptic 0.5% OU 1 drop BID [facility] Administration Impression 1. REBEKA 2. hip fracture 3. htn 4. dementia 5. anemia Plan - renal function is improved - pt is getting prbc as hg is low - repeat bmp in am - cont fluids for now - monitor volume status - ortho follow up - avoid nsaids - monitor bp - will follow Dr Rubi
[2017-04-16] MEDS: SODIUM CHLORIDE 1,000 ML IV SCH (18:13)
[2017-04-16] MEDS: LATANOPROST 0.005% OPHTH SOLN 2.5ML BOTTLE OU SCH (18:13)
[2017-04-16] MEDS: OLANZapine 2.5 MG TABLET PO SCH ×2 (21:40→21:46)
[2017-04-17] MEDS: CEFAZOLIN 1 GM PUSH 1 GM/10 ML DISP.SYRIN IVPUSH SCH (01:23)
[2017-04-17] MEDS: SODIUM CHLORIDE 1,000 ML IV SCH ×2 (01:43→18:29)
[2017-04-17 08:57] LABS: MCH 30.8 pg (25.7-33.7); MCHC 33.5 g/dl (32.0-35.9); MEAN CELL VOLUME 91.8 fl (80-96); MEAN PLT VOLUME 8.4 fl (7.5-11.1); PLATELET COUNT 324 K/MM3 (134-434); RBC 2.94 M/mm3 (4.00-5.60); RDW 18.6 % (11.9-15.9); WHITE BLOOD COUNT 15.5 K/mm3 (4.0-10.0)
[2017-04-17] MEDS: amLODIPine BESYLATE 10 MG TABLET (FP) PO SCH (09:19)
[2017-04-17] MEDS: ENOXAPARIN NA (PORCINE) 30 MG/0.3 ML DISP.SYRIN SQ SCH (09:19)
[2017-04-17 09:30] LABS: ANION GAP 9 (8-16); BLOOD UREA NITROGEN 28 mg/dL (7-18); CHLORIDE 111 mmol/L (98-107); CO2 23 mmol/L (21-32); CREATININE 1.1 mg/dL (0.7-1.3); GLUCOSE,RANDOM 159 mg/dL (74-106); MAGNESIUM 1.8 mg/dL (1.8-2.4); POTASSIUM 4.5 mmol/L (3.5-5.1); SODIUM 143 mmol/L (136-145)
--- NOTE | 2017-04-17 09:57 | PN ---
Progress Note, Physician History of Present Illness: Awake, confused POD #2 removal of R hip orthopedic hardware and conversion to hemiarthroplasty Operative findings discussed with Dr. Lucas- hip not clinically infected Afebrile WBC elevated Blood c/s (-) - Current Medication List Current Medications: Active Medications Amlodipine Besylate (Norvasc -) 10 mg PO DAILY [facility] Last Admin: 04/17/17 09:19 Dose: 10 mg Brimonidine Tartrate (Alphagan 0.2% -) 1 drop OU DAILY [facility] Last Admin: 04/16/17 10:36 Dose: 1 drop Dorzolamide HCl (Trusopt 2%) 1 drop OU BID [facility] Last Admin: 04/16/17 21:42 Dose: 1 drop Enoxaparin Sodium (Lovenox -) 30 mg SQ DAILY [facility] Last Admin: 04/17/17 09:19 Dose: 30 mg Sodium Chloride (Normal Saline -) 1,000 mls @ 75 mls/hr IV ASDIR [facility] Last Admin: 04/17/17 01:43 Dose: 75 mls/hr Cefazolin Sodium (Ancef -) 1 gm in 10 mls @ 120 mls/hr IVPUSH Q8H-IV [facility] Last Admin: 04/17/17 01:23 Dose: 120 mls/hr Latanoprost (Xalatan 0.005% Eye Drops -) 1 drop OU DAILY@1800 [facility] Last Admin: 04/16/17 18:13 Dose: 1 drop Morphine Sulfate (Morphine Injection -) 1 mg IVPUSH Q4H PRN PRN Reason: PAIN Last Admin: 04/16/17 20:24 Dose: 1 mg Olanzapine (Zyprexa -) 2.5 mg PO HS [facility] Last Admin: 04/16/17 21:46 Dose: Not Given Pneumococcal 13-Valent Conj Vacc (Prevnar 13 Syringe -) 0.5 ml IM .ONCE ONE Stop: 04/17/17 10:01 Last Admin: 04/17/17 09:20 Dose: 0.5 ml Timolol Maleate (Timoptic 0.5%) 1 drop OU BID [facility] Last Admin: 04/16/17 21:42 Dose: 1 drop - Objective Vital Signs: Vital Signs Temperature 98.9 F 04/17/17 06:40 Pulse Rate 101 H 04/17/17 06:40 Respiratory Rate 18 04/17/17 06:40 Blood Pressure 145/92 04/17/17 06:40 O2 Sat by Pulse Oximetry (%) 99 04/16/17 09:00 Constitutional: Yes: No Distress Eyes: Yes: Conjunctiva Clear Cardiovascular: Yes: Regular Rate and Rhythm, S1, S2 Respiratory: Yes: Diminished Gastrointestinal: Yes: Normal Bowel Sounds, Soft. No: Tenderness Extremities: Yes: Other (R hip wound no erythema/ drainage) Labs: CBC, BMP 04/17/17 08:30 04/17/17 08:30 INR, PTT INR 1.25 (0.82-1.09) H 04/15/17 10:52 Assessment/Plan S/P removal of orthopedic hardware and conversion ro hemiarthroplasty POD #2 Leukocytosis ? leukemoid rxn Azotemia- improved D/C antibiotics, observe Repeat BC off antibiotics for persistant leukocytosis
[2017-04-17] MEDS ORDERED: PNEUMOC 13-VAL CONJ-DIP CRM/PF 0.5 ML DISP.SYRIN IM ONE (10:00)
[2017-04-17] MEDS ORDERED: PT OWN MED DRAWER 7, Y5N ONE ×2 (10:44→18:09)
[2017-04-17] MEDS: TIMOLOL 0.5% OPHTHALMIC SOL 5 ML BOTTLE OU SCH ×2 (10:46→21:54)
[2017-04-17] MEDS: DORZOLAMIDE 2% HCL OPHTHALMIC SOLUTION 10 ML BOTTLE OU SCH ×2 (10:47→21:54)
[2017-04-17] MEDS: BRIMONIDINE TARTRATE 0.2% OPHTHALMIC 5 ML BOTTLE OU SCH (10:47)
--- NOTE | 2017-04-17 13:22 | PATH ---
Surgical Pathology Report Patient Name: KAREL CORDOVA Med. Rec. #: [id number] /Age/Gender: 1930 (Age: 86) / M Account: [id number] Location: [address] [place] [address]/[facility] Taken: 04/15/2017 Received: 04/16/2017 Reported: 04/17/2017 Physicians: Edwin Nick M.D. Specimen(s) Received A: HARDWARE RIGHT FEMUR B: BONE RIGHT FEMORAL HEAD Clinical History Right intertrochanteric femoral fracture Final Diagnosis A. ORTHOPEDIC HARDWARE, RIGHT HIP, REMOVAL: METALLIC PLATE AND SCREWS CONSISTENT WITH ORTHOPEDIC HARDWARE (GROSS ONLY). B. BONE, RIGHT FEMORAL HEAD, EXCISION: BONE WITH INTERSTITIAL HEMORRHAGE AND FIBROSIS CONSISTENT WITH RESPONSE TO FRACTURE. Electronically Signed Derian Amos M.D. Gross Description A. Received fresh labeled "Hardware right hip," is 11.0 x 1.9 x 1.2 cm logan metallic plate. Also received within the same container are 5 fisher metallic screws ranging from 3.4-8.0 cm in length. No soft tissue is present. No sections are submitted, gross only. B. Received in formalin, labeled "right femoral head," is a 4.5 x 4.5 x 4.2 cm. femoral head with a 3.7 cm portion of femoral neck attached with a focal defect. The margin of resection is red-brown, jagged and hemorrhagic. No areas of eburnation are identified. The articular surface is ordonez-yellow and focally granular. The underlying trabecular bone is yellow, hard and focally hemorrhagic. A public relations representative section is submitted in one cassette, following decalcification. /04/16/201704/16/2017
--- NOTE | 2017-04-17 15:31 | PN ---
Progress Note, Physician History of Present Illness: Pt seen and examined at bedside. He is awake however remains confused. - Current Medication List Current Medications: Active Medications Amlodipine Besylate (Norvasc -) 10 mg PO DAILY [facility] Last Admin: 04/17/17 09:19 Dose: 10 mg Brimonidine Tartrate (Alphagan 0.2% -) 1 drop OU DAILY [facility] Last Admin: 04/17/17 10:47 Dose: 1 drop Dorzolamide HCl (Trusopt 2%) 1 drop OU BID [facility] Last Admin: 04/17/17 10:47 Dose: 1 drop Enoxaparin Sodium (Lovenox -) 30 mg SQ DAILY [facility] Last Admin: 04/17/17 09:19 Dose: 30 mg Sodium Chloride (Normal Saline -) 1,000 mls @ 75 mls/hr IV ASDIR [facility] Last Admin: 04/17/17 01:43 Dose: 75 mls/hr Latanoprost (Xalatan 0.005% Eye Drops -) 1 drop OU DAILY@1800 [facility] Last Admin: 04/16/17 18:13 Dose: 1 drop Morphine Sulfate (Morphine Injection -) 1 mg IVPUSH Q4H PRN PRN Reason: PAIN Last Admin: 04/16/17 20:24 Dose: 1 mg Olanzapine (Zyprexa -) 2.5 mg PO HS [facility] Last Admin: 04/16/17 21:46 Dose: Not Given Timolol Maleate (Timoptic 0.5%) 1 drop OU BID [facility] Last Admin: 04/17/17 10:46 Dose: 1 drop - Objective Vital Signs: Vital Signs Temperature 98.8 F 04/17/17 14:27 Pulse Rate 60 04/17/17 14:27 Respiratory Rate 20 04/17/17 10:00 Blood Pressure 132/64 04/17/17 14:27 O2 Sat by Pulse Oximetry (%) 97 04/17/17 09:00 Constitutional: Yes: Calm Eyes: Yes: Conjunctiva Clear HENT: Yes: Atraumatic Neck: Yes: Supple Cardiovascular: Yes: S1, S2 Respiratory: Yes: CTA Bilaterally Gastrointestinal: Yes: Soft Genitourinary: Yes: Incontinence Musculoskeletal: Yes: Muscle Weakness Extremities: Yes: Other (dressing in place) Edema: No Wound/Incision: Yes: Dressing Dry and Intact Neurological: Yes: Confusion, Pre-Existing Deficit Labs: CBC, BMP 04/17/17 08:30 04/17/17 08:30 INR, PTT INR 1.25 (0.82-1.09) H 04/15/17 10:52 Problem List - Problems (1) REBEKA (acute kidney injury) Code(s): N17.9 - ACUTE KIDNEY FAILURE, UNSPECIFIED (2) Inability to ambulate due to hip Code(s): R26.2 - DIFFICULTY IN WALKING, NOT ELSEWHERE CLASSIFIED (3) Status post hip surgery Code(s): Z98.890 - OTHER SPECIFIED POSTPROCEDURAL STATES (4) Dementia Code(s): F03.90 - UNSPECIFIED DEMENTIA WITHOUT BEHAVIORAL DISTURBANCE Qualifiers: Dementia type: Alzheimer's disease Assessment/Plan Current Medications Generic Name Dose Route Start Last Admin Trade Name Freq PRN Reason Stop Dose Admin Amlodipine Besylate 10 mg 04/16/17 10:00 04/17/17 09:19 Norvasc - PO 10 mg DAILY SHANDA Administration Brimonidine Tartrate 1 drop 04/16/17 10:00 04/17/17 10:47 Alphagan 0.2% - OU 1 drop DAILY SHANDA Administration Dorzolamide HCl 1 drop 04/15/17 22:00 04/17/17 10:47 Trusopt 2% OU 1 drop BID SHANDA Administration Enoxaparin Sodium 30 mg 04/16/17 10:00 04/17/17 09:19 Lovenox - SQ 30 mg DAILY SHANDA Administration Sodium Chloride 1,000 mls @ 75 mls/hr 04/15/17 17:58 04/17/17 01:43 Normal Saline - IV 75 mls/hr ASDIR SHANDA Administration Latanoprost 1 drop 04/15/17 18:00 04/16/17 18:13 Xalatan 0.005% Eye Drops - OU 1 drop DAILY@1800 SHANDA Administration Morphine Sulfate 1 mg 04/15/17 17:58 04/16/17 20:24 Morphine Injection - IVPUSH 1 mg Q4H PRN Administration PAIN Olanzapine 2.5 mg 04/16/17 22:00 04/16/17 21:46 Zyprexa - PO Not Given HS SHANDA Timolol Maleate 1 drop 04/15/17 22:00 04/17/17 10:46 Timoptic 0.5% OU 1 drop BID SHANDA Administration Impression 1. REBEKA 2. hip fracture 3. htn 4. dementia 5. anemia Plan - hg is improved - renal function is improved - can cont fluids for now - repeat bmp in am - ortho follow up - avoid nsaids - monitor bp - will follow Dr Rubi
[2017-04-17] MEDS: LATANOPROST 0.005% OPHTH SOLN 2.5ML BOTTLE OU SCH (18:28)
--- NOTE | 2017-04-17 19:58 | PN ---
Physical Exam: SUBJECTIVE: Patient seen and examined, reported to be restless, at times agitated and combative. OBJECTIVE: Vital Signs Period Temp Pulse Resp BP Sys/[place] Pulse Ox Last 24 Hr 98.6 F-99.0 F 60-101 18-20 124-150/63-92 97 GENERAL: The patient is in no acute distress. HEAD: Normal with no signs of trauma. EYES: PERRL, extraocular movements intact, sclera anicteric, conjunctiva clear. No ptosis. ENT: Ears normal, nares patent, oropharynx clear without exudates, moist mucous membranes. NECK: Trachea midline, full range of motion, supple. LUNGS: Breath sounds equal, HEART: Regular rate and rhythm, S1, S2 without murmur, rub or gallop. ABDOMEN: Soft, nontender, nondistended, normoactive bowel sounds, no guarding, no rebound, no hepatosplenomegaly, no masses. EXTREMITIES:s/p right hemiarthroplasty of the hip NEUROLOGICAL: agitated, combative at times, restless PSYCH: Normal mood, normal affect. SKIN: Warm, dry, normal turgor, no rashes or lesions noted Laboratory Results - last 24 hr 04/17/17 04/17/17 08:30 08:30 WBC 15.5 H RBC 2.94 L D Hgb 9.0 L D Hct 27.0 L D MCV 91.8 D MCH 30.8 MCHC 33.5 RDW 18.6 H D Plt Count 324 MPV 8.4 Sodium 143 Potassium 4.5 Chloride 111 H Carbon Dioxide 23 Anion Gap 9 BUN 28 H Creatinine 1.1 Random Glucose 159 H Calcium 8.0 L Magnesium 1.8 Active Medications Generic Name Dose Route Start Last Admin Trade Name Freq PRN Reason Stop Dose Admin Amlodipine Besylate 10 mg 04/16/17 10:04/17/17 09:19 Norvasc - PO 10 mg DAILY SHANDA Administration Bacitracin 1 applic 04/17/17 22:00 Bacitracin - TP BID SHANDA Brimonidine Tartrate 1 drop 04/16/17 10:04/17/17 10:47 Alphagan 0.2% - OU 1 drop DAILY SHANDA Administration Dorzolamide HCl 1 drop 04/15/17 22:00 04/17/17 10:47 Trusopt 2% OU 1 drop BID SHANDA Administration Enoxaparin Sodium 30 mg 04/16/17 10:00 04/17/17 09:19 Lovenox - SQ 30 mg DAILY SHANDA Administration Sodium Chloride 1,000 mls @ 75 mls/hr 04/15/17 17:58 04/17/17 18:29 Normal Saline - IV 75 mls/hr ASDIR SHANDA Administration Latanoprost 1 drop 04/15/17 18:00 04/17/17 18:28 Xalatan 0.005% Eye Drops - OU 1 drop DAILY@1800 SHANDA Administration Morphine Sulfate 1 mg 04/15/17 17:58 04/16/17 20:24 Morphine Injection - IVPUSH 1 mg Q4H PRN Administration PAIN Olanzapine 2.5 mg 04/16/17 22:00 04/16/17 21:46 Zyprexa - PO Not Given HS SHANDA Timolol Maleate 1 drop 04/15/17 22:00 04/17/17 10:46 Timoptic 0.5% OU 1 drop BID SHANDA Administration ASSESSMENT/PLAN: Pateint is an 86 year old male with a significant past medical history of dementia and glaucoma. He presents to the ED with right hip pain and unable to ambulate. Pt is s/p fall with right hip surgery 2 weeks ago in [facility] as per chart review. Surgical: Right Proximal Femur repair s/p failed ORIF Surgical date 04/15/17 @ [place] Right femur hardware removed with conversion to hemiarthroplasty Morphine for pain Renal Acute renal failure Creat. improved, renal following continue IVFs BMP in am. Renal following Hematology Anemia, acute blood loss s/p blood transfusion hmg/hct stable Neuro Dementia/agitation/combative On Zyprexa Monitor mental status DVT: Lovenox 30mg daily F.E.N. Fluids: NS @ 75cc/hr Electrolytes: bmp in a.m Nutrition reg. diet Visit type - Emergency Visit Emergency Visit: Yes ED Registration Date: 04/15/17 Care time: The patient presented to the Emergency Department on the above date and was hospitalized for further evaluation of their emergent condition. - New Patient This patient is new to me today: Yes Date on this admission: 04/17/17 - Critical Care Critical Care patient: No - Discharge Referral Referred to [facility] Med P.C.: No
[2017-04-17] MEDS: OLANZapine 2.5 MG TABLET PO SCH (21:53)
[2017-04-18] MEDS: morphine CARPU-JECT 10 MG/1 ML DISP.SYRIN IVPUSH PRN ×2 (04:16→11:11)
[2017-04-18] MEDS: SODIUM CHLORIDE 1,000 ML IV SCH (06:19)
[2017-04-18 08:53] LABS: BASO % 0.2 % (0-2.0); EOS % 0.6 % (0-4.5); HEMATOCRIT 26.2 % (35.4-49); HEMOGLOBIN 8.6 GM/dL (11.7-16.9); LYMPH % 6.1 % (8-40); MCH 30.5 pg (25.7-33.7); MEAN CELL VOLUME 92.5 fl (80-96); MEAN PLT VOLUME 8.4 fl (7.5-11.1); MONO % 9.4 % (3.8-10.2); NEUT % 83.7 % (42.8-82.8); PLATELET COUNT 296 K/MM3 (134-434); RBC 2.83 M/mm3 (4.00-5.60); RDW 18.1 % (11.9-15.9); WHITE BLOOD COUNT 14.6 K/mm3 (4.0-10.0)
[2017-04-18 09:20] LABS: CALCIUM 8.6 mg/dL (8.5-10.1); CHLORIDE 109 mmol/L (98-107); POTASSIUM 4.3 mmol/L (3.5-5.1); SODIUM 144 mmol/L (136-145)
[2017-04-18 09:27] LABS: ALBUMIN 2.2 g/dl (3.4-5.0); ALK PHOS 103 U/L (45-117); ANION GAP 9 (8-16); BILIRUBIN,TOTAL 1.2 mg/dL (0.2-1.0); BLOOD UREA NITROGEN 23 mg/dL (7-18); CO2 26 mmol/L (21-32); GLUCOSE,RANDOM 159 mg/dL (74-106); SGOT/AST 30 U/L (15-37); SGPT/ALT 15 U/L (12-78); TOT PROT 5.2 g/dl (6.4-8.2)
[2017-04-18] MEDS ORDERED: PT OWN MED DRAWER 7, Y5N ONE ×3 (09:47→21:07)
[2017-04-18] MEDS: amLODIPine BESYLATE 10 MG TABLET (FP) PO SCH (09:56)
[2017-04-18] MEDS: ENOXAPARIN NA (PORCINE) 30 MG/0.3 ML DISP.SYRIN SQ SCH (09:57)
[2017-04-18] MEDS: TIMOLOL 0.5% OPHTHALMIC SOL 5 ML BOTTLE OU SCH ×2 (09:59→22:11)
[2017-04-18] MEDS: DORZOLAMIDE 2% HCL OPHTHALMIC SOLUTION 10 ML BOTTLE OU SCH ×2 (10:00→22:11)
[2017-04-18] MEDS: BRIMONIDINE TARTRATE 0.2% OPHTHALMIC 5 ML BOTTLE OU SCH (10:01)
--- NOTE | 2017-04-18 10:14 | PN ---
Progress Note (short form) - Note Progress Note: Ortho Pt seen and examined s/p right conversion hip jefferson pod #3 Selected Entries 04/18/17 06:00 Temperature 98.6 F Pulse Rate 89 Respiratory 20 Rate Blood Pressure 152/60 Laboratory Tests 04/18/17 08:15 WBC 14.6 H Hgb 8.6 L Hct 26.2 L Plt Count 296 dressing c/d/i, calf soft, nt a/p PT if able dvt ppx pain control d/c planning
--- NOTE | 2017-04-18 12:24 | PN ---
Progress Note, Physician Chief Complaint: AGITATED REFUSED MEDS YESTERDAY ASKING FOR FAMILY ACCEPTED MEDICATIONS TODAY - Current Medication List Current Medications: Active Medications Amlodipine Besylate (Norvasc -) 10 mg PO DAILY [facility] Last Admin: 04/18/17 09:56 Dose: 10 mg Bacitracin (Bacitracin -) 1 applic TP BID [facility] Brimonidine Tartrate (Alphagan 0.2% -) 1 drop OU DAILY [facility] Last Admin: 04/18/17 10:01 Dose: 1 drop Dorzolamide HCl (Trusopt 2%) 1 drop OU BID [facility] Last Admin: 04/18/17 10:00 Dose: 1 drop Enoxaparin Sodium (Lovenox -) 30 mg SQ DAILY [facility] Last Admin: 04/18/17 09:57 Dose: 30 mg Sodium Chloride (Normal Saline -) 1,000 mls @ 75 mls/hr IV ASDIR [facility] Last Admin: 04/18/17 06:19 Dose: 75 mls/hr Latanoprost (Xalatan 0.005% Eye Drops -) 1 drop OU DAILY@1800 [facility] Last Admin: 04/17/17 18:28 Dose: 1 drop Morphine Sulfate (Morphine Injection -) 1 mg IVPUSH Q4H PRN PRN Reason: PAIN Last Admin: 04/18/17 11:11 Dose: 1 mg Olanzapine (Zyprexa -) 2.5 mg PO HS [facility] Last Admin: 04/17/17 21:53 Dose: 2.5 mg Timolol Maleate (Timoptic 0.5%) 1 drop OU BID [facility] Last Admin: 04/18/17 09:59 Dose: 1 drop - Objective Vital Signs: Vital Signs Temperature 98.6 F 04/18/17 06:00 Pulse Rate 89 04/18/17 06:00 Respiratory Rate 20 04/18/17 06:00 Blood Pressure 152/60 04/18/17 06:00 O2 Sat by Pulse Oximetry (%) 97 04/17/17 21:00 Constitutional: Yes: Mild Distress Eyes: Yes: WNL HENT: Yes: WNL Neck: Yes: WNL Cardiovascular: Yes: WNL Respiratory: Yes: WNL Gastrointestinal: Yes: WNL Genitourinary: Yes: Incontinence Musculoskeletal: Yes: Muscle Weakness Extremities: Yes: WNL Edema: No Peripheral Pulses WNL: Yes Integumentary: Yes: WNL Wound/Incision: Yes: Dressing Dry and Intact, Reddened Neurological: Yes: Confusion, Pre-Existing Deficit ...Motor Strength: LLE, RLE Psychiatric: Yes: Agitated Labs: CBC, BMP 04/18/17 08:15 04/18/17 08:15 INR, PTT INR 1.25 (0.82-1.09) H 04/15/17 10:52 Problem List - Problems (1) Inability to ambulate due to hip Code(s): R26.2 - DIFFICULTY IN WALKING, NOT ELSEWHERE CLASSIFIED (2) Status post hip surgery Code(s): Z98.890 - OTHER SPECIFIED POSTPROCEDURAL STATES (3) Surgical complication Code(s): T81.9XXA - UNSPECIFIED COMPLICATION OF PROCEDURE, INITIAL ENCOUNTER Qualifiers: Surgical complication system/body Area: musculoskeletal system Bone affected by surgical complication: femur Laterality: right (4) B12 deficiency Code(s): E53.8 - DEFICIENCY OF OTHER SPECIFIED B GROUP VITAMINS (5) Dementia Code(s): F03.90 - UNSPECIFIED DEMENTIA WITHOUT BEHAVIORAL DISTURBANCE Qualifiers: Dementia type: Alzheimer's disease Assessment/Plan RIGHT HEMIATHOPLASTY POD 3 PT EVAL RESTRAINTS NEEDED ZYPREXA RESTARTED PAIN MEDS DVT PROPHLAXIS TRANSFUSE NEEDED STOOL FOR OCCULT IRON LEVELS CBC
[2017-04-18] MEDS: LATANOPROST 0.005% OPHTH SOLN 2.5ML BOTTLE OU SCH (16:52)
--- NOTE | 2017-04-18 16:57 | PN ---
Progress Note, Physician History of Present Illness: Pt seen and examined at bedside. He appears comfortable. Family are at bedside. - Current Medication List Current Medications: Active Medications Amlodipine Besylate (Norvasc -) 10 mg PO DAILY [facility] Last Admin: 04/18/17 09:56 Dose: 10 mg Bacitracin (Bacitracin -) 1 applic TP BID [facility] Brimonidine Tartrate (Alphagan 0.2% -) 1 drop OU DAILY [facility] Last Admin: 04/18/17 10:01 Dose: 1 drop Dorzolamide HCl (Trusopt 2%) 1 drop OU BID [facility] Last Admin: 04/18/17 10:00 Dose: 1 drop Enoxaparin Sodium (Lovenox -) 30 mg SQ DAILY [facility] Last Admin: 04/18/17 09:57 Dose: 30 mg Sodium Chloride (Normal Saline -) 1,000 mls @ 75 mls/hr IV ASDIR [facility] Last Admin: 04/18/17 06:19 Dose: 75 mls/hr Latanoprost (Xalatan 0.005% Eye Drops -) 1 drop OU DAILY@1800 [facility] Last Admin: 04/18/17 16:52 Dose: 1 drop Morphine Sulfate (Morphine Injection -) 1 mg IVPUSH Q4H PRN PRN Reason: PAIN Last Admin: 04/18/17 11:11 Dose: 1 mg Olanzapine (Zyprexa -) 2.5 mg PO HS [facility] Last Admin: 04/17/17 21:53 Dose: 2.5 mg Timolol Maleate (Timoptic 0.5%) 1 drop OU BID [facility] Last Admin: 04/18/17 09:59 Dose: 1 drop - Objective Vital Signs: Vital Signs Temperature 98.6 F 04/18/17 15:52 Pulse Rate 101 H 04/18/17 15:52 Respiratory Rate 20 04/18/17 15:52 Blood Pressure 153/57 04/18/17 15:52 O2 Sat by Pulse Oximetry (%) 97 04/17/17 21:00 Constitutional: Yes: Calm Eyes: Yes: Conjunctiva Clear HENT: Yes: Atraumatic Cardiovascular: Yes: S1, S2 Respiratory: Yes: CTA Bilaterally Gastrointestinal: Yes: Soft Genitourinary: Yes: Incontinence Musculoskeletal: Yes: Other (hip pain) Edema: No Wound/Incision: Yes: Dressing Dry and Intact Neurological: Yes: Pre-Existing Deficit Labs: CBC, BMP 04/18/17 08:15 04/18/17 08:15 INR, PTT INR 1.25 (0.82-1.09) H 04/15/17 10:52 Problem List - Problems (1) REBEKA (acute kidney injury) Code(s): N17.9 - ACUTE KIDNEY FAILURE, UNSPECIFIED (2) Inability to ambulate due to hip Code(s): R26.2 - DIFFICULTY IN WALKING, NOT ELSEWHERE CLASSIFIED (3) Status post hip surgery Code(s): Z98.890 - OTHER SPECIFIED POSTPROCEDURAL STATES (4) Dementia Code(s): F03.90 - UNSPECIFIED DEMENTIA WITHOUT BEHAVIORAL DISTURBANCE Qualifiers: Dementia type: Alzheimer's disease Assessment/Plan Current Medications Generic Name Dose Route Start Last Admin Trade Name Freq PRN Reason Stop Dose Admin Amlodipine Besylate 10 mg 04/16/17 10:00 04/18/17 09:56 Norvasc - PO 10 mg DAILY SHANDA Administration Bacitracin 1 applic 04/17/17 22:00 Bacitracin - TP BID SHANDA Brimonidine Tartrate 1 drop 04/16/17 10:00 04/18/17 10:01 Alphagan 0.2% - OU 1 drop DAILY SHANDA Administration Dorzolamide HCl 1 drop 04/15/17 22:00 04/18/17 10:00 Trusopt 2% OU 1 drop BID SHANDA Administration Enoxaparin Sodium 30 mg 04/16/17 10:00 04/18/17 09:57 Lovenox - SQ 30 mg DAILY SHANDA Administration Sodium Chloride 1,000 mls @ 75 mls/hr 04/15/17 17:58 04/18/17 06:19 Normal Saline - IV 75 mls/hr ASDIR SHANDA Administration Latanoprost 1 drop 04/15/17 18:00 04/18/17 16:52 Xalatan 0.005% Eye Drops - OU 1 drop DAILY@1800 SHANDA Administration Morphine Sulfate 1 mg 04/15/17 17:58 04/18/17 11:11 Morphine Injection - IVPUSH 1 mg Q4H PRN Administration PAIN Olanzapine 2.5 mg 04/16/17 22:00 04/17/17 21:53 Zyprexa - PO 2.5 mg HS SHANDA Administration Timolol Maleate 1 drop 04/15/17 22:00 04/18/17 09:59 Timoptic 0.5% OU 1 drop BID SHANDA Administration Impression 1. REBEKA 2. hip fracture 3. htn 4. dementia 5. anemia Plan - renal function is stable - avoid nsaids - repeat labs in am - cont fluids until tolerating diet - will follow PRN Dr Rubi
--- NOTE | 2017-04-18 17:54 | CON.PSY ---
Psychiatry Consult Symptoms: reports: Memory Impairment, Aggressivity - Previous Psychiatric Treatment Outpatient: None Inpatient: None - Previous Substance Abuse Treatment Outpatient: None Inpatient: None - Current Medications Current Medications: Active Medications Amlodipine Besylate (Norvasc -) 10 mg PO DAILY [facility] Last Admin: 04/18/17 09:56 Dose: 10 mg Bacitracin (Bacitracin -) 1 applic TP BID [facility] Brimonidine Tartrate (Alphagan 0.2% -) 1 drop OU DAILY [facility] Last Admin: 04/18/17 10:01 Dose: 1 drop Dorzolamide HCl (Trusopt 2%) 1 drop OU BID [facility] Last Admin: 04/18/17 10:00 Dose: 1 drop Enoxaparin Sodium (Lovenox -) 30 mg SQ DAILY [facility] Last Admin: 04/18/17 09:57 Dose: 30 mg Sodium Chloride (Normal Saline -) 1,000 mls @ 75 mls/hr IV ASDIR [facility] Last Admin: 04/18/17 06:19 Dose: 75 mls/hr Latanoprost (Xalatan 0.005% Eye Drops -) 1 drop OU DAILY@1800 [facility] Last Admin: 04/18/17 16:52 Dose: 1 drop Morphine Sulfate (Morphine Injection -) 1 mg IVPUSH Q4H PRN PRN Reason: PAIN Last Admin: 04/18/17 11:11 Dose: 1 mg Olanzapine (Zyprexa -) 2.5 mg PO HS [facility] Last Admin: 04/17/17 21:53 Dose: 2.5 mg Timolol Maleate (Timoptic 0.5%) 1 drop OU BID [facility] Last Admin: 04/18/17 09:59 Dose: 1 drop - Allergies Allergies: Allergies Allergy/AdvReac Type Severity Reaction Status Date / Time No Known Allergies Allergy Verified 04/14/17 18:43 - Current Living Status Usual Living Arrangement: With Child - Current Mental Status Evaluation Appearance: Disheveled Attitude: Belligerent - Affect Affect: Constrictive Appropriateness: Not Appropriate - Mood Mood: Irritable - Speech/Language Expressive: Delayed - Psychomotor Activity Psychomotor Activity: Agitated - Thought Process Thought Process: Circumstantial - Thought Content Hallucinations: Absent Delusions: Absent - Self Perception Self Perception: Depersonalization - Cognition Attention: Diminished Memory, Immediate Recall: Impaired Memory, Short Term: 0/3 Memory, Remote with Promptin/3 - Concentration Serial Sevens Intact: No Simple Calculations Intact: No - Abstraction Proverb Interpretation: Impaired Judgement: Severely Impaired - Impulse Control Impulse Control: Severly Impaired - Suicidal Ideation Suicidal Ideation: No - Homicidal Ideation Homicidal Ideation: No Assessment/Plan 1) increase Zyprexa 5mg po hs
--- NOTE | 2017-04-18 18:35 | CON.PSL ---
Psychology Consult Consult Specialty:: Clinical Psychology Referred by:: Dr. Huerta Reason for Consultation:: This report needs to be removed as another one was created in its place the following day when then patient was seen. History Provided By: Medical Record Current Medications: Active Medications Amlodipine Besylate (Norvasc -) 10 mg PO DAILY [facility] Last Admin: 04/18/17 09:56 Dose: 10 mg Bacitracin (Bacitracin -) 1 applic TP BID [facility] Brimonidine Tartrate (Alphagan 0.2% -) 1 drop OU DAILY [facility] Last Admin: 04/18/17 10:01 Dose: 1 drop Dorzolamide HCl (Trusopt 2%) 1 drop OU BID [facility] Last Admin: 04/18/17 10:00 Dose: 1 drop Enoxaparin Sodium (Lovenox -) 30 mg SQ DAILY [facility] Last Admin: 04/18/17 09:57 Dose: 30 mg Sodium Chloride (Normal Saline -) 1,000 mls @ 75 mls/hr IV ASDIR [facility] Last Admin: 04/18/17 06:19 Dose: 75 mls/hr Latanoprost (Xalatan 0.005% Eye Drops -) 1 drop OU DAILY@1800 [facility] Last Admin: 04/18/17 16:52 Dose: 1 drop Olanzapine (Zyprexa -) 5 mg PO HS [facility] Timolol Maleate (Timoptic 0.5%) 1 drop OU BID [facility] Last Admin: 04/18/17 09:59 Dose: 1 drop Allergies: Allergies Allergy/AdvReac Type Severity Reaction Status Date / Time No Known Allergies Allergy Verified 04/14/17 18:43
[2017-04-18] MEDS: OLANZapine 5 MG TABLET PO SCH (22:11)
[2017-04-19 08:36] LABS: HEMATOCRIT 23.1 % (35.4-49); HEMOGLOBIN 7.7 GM/dL (11.7-16.9); MCH 31.3 pg (25.7-33.7); MCHC 33.5 g/dl (32.0-35.9); MEAN CELL VOLUME 93.6 fl (80-96); MEAN PLT VOLUME 8.3 fl (7.5-11.1); PLATELET COUNT 274 K/MM3 (134-434); RBC 2.47 M/mm3 (4.00-5.60); WHITE BLOOD COUNT 11.7 K/mm3 (4.0-10.0)
--- NOTE | 2017-04-19 09:05 | PN ---
Progress Note, Physician - Current Medication List Current Medications: Active Medications Amlodipine Besylate (Norvasc -) 10 mg PO DAILY [facility] Last Admin: 04/18/17 09:56 Dose: 10 mg Bacitracin (Bacitracin -) 1 applic TP BID [facility] Brimonidine Tartrate (Alphagan 0.2% -) 1 drop OU DAILY [facility] Last Admin: 04/18/17 10:01 Dose: 1 drop Dorzolamide HCl (Trusopt 2%) 1 drop OU BID [facility] Last Admin: 04/18/17 22:11 Dose: 1 drop Enoxaparin Sodium (Lovenox -) 30 mg SQ DAILY [facility] Last Admin: 04/18/17 09:57 Dose: 30 mg Sodium Chloride (Normal Saline -) 1,000 mls @ 75 mls/hr IV ASDIR [facility] Last Admin: 04/18/17 06:19 Dose: 75 mls/hr Latanoprost (Xalatan 0.005% Eye Drops -) 1 drop OU DAILY@1800 [facility] Last Admin: 04/18/17 16:52 Dose: 1 drop Olanzapine (Zyprexa -) 5 mg PO HS [facility] Last Admin: 04/18/17 22:11 Dose: 5 mg Timolol Maleate (Timoptic 0.5%) 1 drop OU BID [facility] Last Admin: 04/18/17 22:11 Dose: 1 drop - Objective Vital Signs: Vital Signs Temperature 98.6 F 04/19/17 06:00 Pulse Rate 94 H 04/19/17 06:00 Respiratory Rate 20 04/19/17 06:00 Blood Pressure 150/72 04/19/17 06:00 O2 Sat by Pulse Oximetry (%) 97 04/18/17 21:00 Labs: CBC, BMP 04/19/17 07:00 INR, PTT INR 1.25 (0.82-1.09) H 04/15/17 10:52 Problem List - Problems (1) Status post hip surgery Assessment/Plan: Operative Date: 04/15/17 ([facility]) 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 Operation: right fmeur removal of hardware with conversion to hemiarthroplasty Post-Operative Diagnosis: Same as Pre-op Surgeon: Bam Lucas Code(s): Z98.890 - OTHER SPECIFIED POSTPROCEDURAL STATES (2) REBEKA (acute kidney injury) Assessment/Plan: IMPROVING ON IVF RENAL ON CASE Code(s): N17.9 - ACUTE KIDNEY FAILURE, UNSPECIFIED (3) Dementia Assessment/Plan: ON ZYPREXA Code(s): F03.90 - UNSPECIFIED DEMENTIA WITHOUT BEHAVIORAL DISTURBANCE Qualifiers: Dementia type: Alzheimer's disease Dementia behavioral disturbance: with behavioral disturbance (4) Altered mental status Assessment/Plan: ABOVE Code(s): R41.82 - ALTERED MENTAL STATUS, UNSPECIFIED Qualifiers: Altered mental status type: delirium Qualified Code(s): R41.0 - Disorientation, unspecified (5) Anemia Assessment/Plan: FOLLOW LABS MAY NEED TRANSFUSION Code(s): D64.9 - ANEMIA, UNSPECIFIED
[2017-04-19 09:15] LABS: ANION GAP 8 (8-16); BLOOD UREA NITROGEN 21 mg/dL (7-18); CALCIUM 7.9 mg/dL (8.5-10.1); CHLORIDE 107 mmol/L (98-107); CO2 26 mmol/L (21-32); CREATININE 0.9 mg/dL (0.7-1.3); GLUCOSE,RANDOM 176 mg/dL (74-106); MAGNESIUM 1.7 mg/dL (1.8-2.4); POTASSIUM 4.3 mmol/L (3.5-5.1); SODIUM 141 mmol/L (136-145)
[2017-04-19] MEDS: ENOXAPARIN NA (PORCINE) 30 MG/0.3 ML DISP.SYRIN SQ SCH (10:40)
[2017-04-19] MEDS: DORZOLAMIDE 2% HCL OPHTHALMIC SOLUTION 10 ML BOTTLE OU SCH ×2 (10:45→23:08)
[2017-04-19] MEDS: BACITRACIN 15 GM TUBE TOPICAL OINTMENT TP SCH ×2 (11:00→23:06)
[2017-04-19] MEDS: BRIMONIDINE TARTRATE 0.2% OPHTHALMIC 5 ML BOTTLE OU SCH (11:00)
[2017-04-19] MEDS: amLODIPine BESYLATE 10 MG TABLET (FP) PO SCH (11:47)
[2017-04-19] MEDS: TIMOLOL 0.5% OPHTHALMIC SOL 5 ML BOTTLE OU SCH ×2 (11:48→23:06)
[2017-04-19] MEDS ORDERED: FUROSEMIDE 40 MG/4 ML INJECTABLE VIAL IVPUSH ONE (12:00)
[2017-04-19] MEDS: morphine CARPU-JECT 10 MG/1 ML DISP.SYRIN IVPUSH PRN (15:35)
[2017-04-19] MEDS ORDERED: PT OWN MED DRAWER 7, Y5N ONE ×3 (16:34→22:43)
--- NOTE | 2017-04-19 16:38 | CONSULT ---
Consult Consult Specialty:: Hematology - History of Present Illness History of Present Illness: Patient is an 86 year old male with a significant past medical history of dementia and glaucoma. He presents to the ED with right hip pain and unable to ambulate. Pt is s/p fall with right hip surgery 2 weeks ago in [facility] as per chart review. Now had an ortho procedure here. Hematology consulted for anemia. ROS unobtainable due to pts condition - History Source History Provided By: Medical Record - Past Medical History CLINICAL AUDITOR: Yes: Dementia Cardio/Vascular: Yes: HTN Psych: Yes: Anxiety, Other - Past Surgical History Additional Surgical History: hip surgery - Alcohol/Substance Use Hx Alcohol Use: Yes (occasional) - Smoking History Smoking history: Never smoked - Social History Usual Living Arrangement: With Child Home Medications - Allergies Allergies/Adverse Reactions: Allergies Allergy/AdvReac Type Severity Reaction Status Date / Time No Known Allergies Allergy Verified 04/14/17 18:43 - Home Medications Home Medications: Ambulatory Orders Amlodipine Besylate [Norvasc -] 10 mg PO DAILY 04/14/17 Brimonidine Tartrate [Alphagan 0.2% -] 1 drop OU DAILY 04/14/17 Dorzolamide HCl/Timolol Maleat [Cosopt Eye Drops] 10 ml OP DAILY 04/14/17 Olanzapine [Zyprexa -] 2.5 mg PO DAILY 04/14/17 Quetiapine Fumarate [Seroquel -] 25 mg PO HS 04/14/17 Travoprost [Travatan Z] 2.5 ml OP DAILY 04/14/17 Physical Exam Vital Signs: Vital Signs Temperature 98.6 F 04/19/17 15:00 Pulse Rate 81 04/19/17 15:00 Respiratory Rate 18 04/19/17 10:00 Blood Pressure 152/74 04/19/17 15:00 O2 Sat by Pulse Oximetry (%) 97 04/18/17 21:00 Constitutional: Yes: Other (awake.) HENT: Yes: Atraumatic, Normocephalic Neck: Yes: Supple Cardiovascular: Yes: Regular Rate and Rhythm Respiratory: Yes: Regular Gastrointestinal: Yes: Normal Bowel Sounds, Soft Extremities: Yes: Other (surgical site wnl) Edema: No Wound/Incision: Yes: Clean/Dry Neurological: Yes: Other (confused) Labs: CBC, BMP 04/19/17 07:00 04/19/17 07:00 Imaging - Results X-ray: Report Reviewed Assessment/Plan Normocytic anemia Unknown baseline for screening labs r/o GIB , stool occultx3. site of the surgery looks OK, will monitor, low threshold for imaging if crit continues to fall supportive care with transfusion as needed. will transfuse tomorrow. will send flow on a weekday. will await w.u severe dementia REBEKA resolving
--- NOTE | 2017-04-19 17:22 | CON.PSL ---
Psychology Consult Consult Specialty:: Clinical Psychology and Neuropsychology Referred by:: Dr. Huerta History Provided By: Family Member Limitations to Obtaining History: Dementia Current Medications: Active Medications Amlodipine Besylate (Norvasc -) 10 mg PO DAILY [facility] Last Admin: 04/19/17 11:47 Dose: 10 mg Bacitracin (Bacitracin -) 1 applic TP BID [facility] Brimonidine Tartrate (Alphagan 0.2% -) 1 drop OU DAILY [facility] Last Admin: 04/19/17 11:00 Dose: 1 drop Docusate Sodium (Colace -) 300 mg PO HS [facility] Dorzolamide HCl (Trusopt 2%) 1 drop OU BID [facility] Last Admin: 04/19/17 10:45 Dose: 1 drop Enoxaparin Sodium (Lovenox -) 30 mg SQ DAILY [facility] Last Admin: 04/19/17 10:40 Dose: 30 mg Ferrous Sulfate (Feosol -) 325 mg PO BID [facility] Sodium Chloride (Normal Saline -) 1,000 mls @ 75 mls/hr IV ASDIR [facility] Last Admin: 04/18/17 06:19 Dose: 75 mls/hr Latanoprost (Xalatan 0.005% Eye Drops -) 1 drop OU DAILY@1800 [facility] Last Admin: 04/18/17 16:52 Dose: 1 drop Morphine Sulfate (Morphine Injection -) 1 mg IVPUSH Q4H PRN PRN Reason: PAIN Last Admin: 04/19/17 15:35 Dose: 1 mg Olanzapine (Zyprexa -) 5 mg PO HS [facility] Last Admin: 04/18/17 22:11 Dose: 5 mg Timolol Maleate (Timoptic 0.5%) 1 drop OU BID [facility] Last Admin: 04/19/17 11:48 Dose: 1 drop Allergies: Allergies Allergy/AdvReac Type Severity Reaction Status Date / Time No Known Allergies Allergy Verified 04/14/17 18:43 Does patient have pain?: Yes Pain Location Body Site: Hip Pain Description: Non-Descriptive Hx Alcohol Use: Yes (Past HX of recreational drinking.) Hx Substance Use: No Substance Use Type: Alcohol Hx Substance Use Treatment: No - Family History Family History: Unable to Obtain Current Medical Exam-Psy Attention: Other (The patient was rambling but was able to be examined briefly with the assistance of his son in law and daughter in law.) Thought Process: Loosening of Associations Depression: None Hopelessness: No Loss of Interest: No Anxiety Level: Severe (Although the patient did not admit to anxiety, he became very agitated last night and attempted to remove his surgical dressing.) Danger to Self and Others: Unable to Verbalize (His sleep could not be assessed due to his dementia.) Appetite: Fair (It was difficult to assess his appetite due to dementia but he did indicate that he wanted to eat.) Serial Sevens Intact: No (He could not spell SILKE backwards ) Repeats 3 words told earlier: 0/3 Support System: Family Problem List - Problem (1) Dementia Code(s): F03.90 - UNSPECIFIED DEMENTIA WITHOUT BEHAVIORAL DISTURBANCE Qualifiers: Dementia type: Alzheimer's disease Dementia behavioral disturbance: with behavioral disturbance Assessment/Plan The patient was seen status post hip replacement surgery. He became extremely agitated last night as he tried to remove his dressing; he was going to be assessed last night but it was decided to return today and the assessment was conducted now for that reason. The patient requires typical treatment for his medical condition but also requires psychiatric/neurological followup due to his dementia such as medication management. Thank you for your kind referral.
[2017-04-19] MEDS: SODIUM CHLORIDE 1,000 ML IV SCH (18:00)
[2017-04-19] MEDS: LATANOPROST 0.005% OPHTH SOLN 2.5ML BOTTLE OU SCH (18:55)
--- NOTE | 2017-04-19 19:03 | PN ---
Progress Note, Physician History of Present Illness: Pt seen and examined at bedside. No new events. His son is at bedside and care was discussed with him. - Current Medication List Current Medications: Active Medications Amlodipine Besylate (Norvasc -) 10 mg PO DAILY [facility] Last Admin: 04/19/17 11:47 Dose: 10 mg Bacitracin (Bacitracin -) 1 applic TP BID [facility] Brimonidine Tartrate (Alphagan 0.2% -) 1 drop OU DAILY [facility] Last Admin: 04/19/17 11:00 Dose: 1 drop Docusate Sodium (Colace -) 300 mg PO HS [facility] Dorzolamide HCl (Trusopt 2%) 1 drop OU BID [facility] Last Admin: 04/19/17 10:45 Dose: 1 drop Enoxaparin Sodium (Lovenox -) 30 mg SQ DAILY [facility] Last Admin: 04/19/17 10:40 Dose: 30 mg Ferrous Sulfate (Feosol -) 325 mg PO BID [facility] Sodium Chloride (Normal Saline -) 1,000 mls @ 75 mls/hr IV ASDIR [facility] Last Admin: 04/18/17 06:19 Dose: 75 mls/hr Latanoprost (Xalatan 0.005% Eye Drops -) 1 drop OU DAILY@1800 [facility] Last Admin: 04/18/17 16:52 Dose: 1 drop Morphine Sulfate (Morphine Injection -) 1 mg IVPUSH Q4H PRN PRN Reason: PAIN Last Admin: 04/19/17 15:35 Dose: 1 mg Olanzapine (Zyprexa -) 5 mg PO HS [facility] Last Admin: 04/18/17 22:11 Dose: 5 mg Timolol Maleate (Timoptic 0.5%) 1 drop OU BID [facility] Last Admin: 04/19/17 11:48 Dose: 1 drop - Objective Vital Signs: Vital Signs Temperature 98.6 F 04/19/17 15:00 Pulse Rate 81 04/19/17 15:00 Respiratory Rate 18 04/19/17 10:00 Blood Pressure 152/74 04/19/17 15:00 O2 Sat by Pulse Oximetry (%) 97 04/18/17 21:00 Constitutional: Yes: Calm Eyes: Yes: Conjunctiva Clear HENT: Yes: Atraumatic Neck: Yes: Supple Cardiovascular: Yes: S1, S2 Respiratory: Yes: CTA Bilaterally Gastrointestinal: Yes: Soft Genitourinary: Yes: Incontinence Musculoskeletal: Yes: Muscle Weakness Edema: No Neurological: Yes: Pre-Existing Deficit Labs: CBC, BMP 04/19/17 07:00 04/19/17 07:00 INR, PTT INR 1.25 (0.82-1.09) H 04/15/17 10:52 Problem List - Problems (1) REBEKA (acute kidney injury) Code(s): N17.9 - ACUTE KIDNEY FAILURE, UNSPECIFIED (2) Inability to ambulate due to hip Code(s): R26.2 - DIFFICULTY IN WALKING, NOT ELSEWHERE CLASSIFIED (3) Status post hip surgery Code(s): Z98.890 - OTHER SPECIFIED POSTPROCEDURAL STATES (4) Dementia Code(s): F03.90 - UNSPECIFIED DEMENTIA WITHOUT BEHAVIORAL DISTURBANCE Qualifiers: Dementia type: Alzheimer's disease Dementia behavioral disturbance: with behavioral disturbance Assessment/Plan Current Medications Generic Name Dose Route Start Last Admin Trade Name Freq PRN Reason Stop Dose Admin Amlodipine Besylate 10 mg 04/16/17 10:00 04/19/17 11:47 Norvasc - PO 10 mg DAILY [facility] Administration Bacitracin 1 applic 04/17/17 22:00 04/19/17 11:00 Bacitracin - TP 1 applic BID [facility]ANDA Administration Brimonidine Tartrate 1 drop 04/16/17 10:00 04/19/17 11:00 Alphagan 0.2% - OU 1 drop DAILY [facility] Administration Docusate Sodium 300 mg 04/19/17 22:00 Colace - PO HS [facility] Dorzolamide HCl 1 drop 04/15/17 22:00 04/19/17 10:45 Trusopt 2% OU 1 drop BID [facility] Administration Enoxaparin Sodium 30 mg 04/16/17 10:00 04/19/17 10:40 Lovenox - SQ 30 mg DAILY [facility] Administration Ferrous Sulfate 325 mg 04/19/17 22:00 Feosol - PO BID [facility]ANDA Sodium Chloride 1,000 mls @ 75 mls/hr 04/15/17 17:58 04/19/17 18:00 Normal Saline - IV 75 mls/hr ASDIR [facility]ANDA Administration Latanoprost 1 drop 04/15/17 18:00 04/19/17 18:55 Xalatan 0.005% Eye Drops - OU Not Given DAILY@1800 [facility]AN[facility] Morphine Sulfate 1 mg 04/19/17 15:13 04/19/17 15:35 Morphine Injection - IVPUSH 1 mg Q4H PRN Administration PAIN Olanzapine 5 mg 04/18/17 22:00 04/18/17 22:11 Zyprexa - PO 5 mg HS [facility] Administration Timolol Maleate 1 drop 04/15/17 22:00 04/19/17 11:48 Timoptic 0.5% OU 1 drop BID [facility]AN[facility] Administration Impression 1. REBEKA 2. hip fracture 3. htn 4. dementia 5. anemia 6. hypomagnesemia 7. iron deficiency Plan - renal function is improved - can stop fluids - discussed plan with pts son - avoid nsaids and nephrotoxins - replace magnesium - start iron supplements, may need a stool softener if he becomes constipated Dr Rubi
[2017-04-19] MEDS ORDERED: MAGNESIUM OXIDE 400 MG TABLET (FP) PO ONE (21:15)
[2017-04-19] MEDS: FERROUS SO4 325 MG TABLET (FP) PO SCH (23:05)
[2017-04-19] MEDS: DOCUSATE SODIUM 100 MG CAPSULE (FP) PO SCH (23:06)
[2017-04-19] MEDS: OLANZapine 5 MG TABLET PO SCH (23:54)
[2017-04-20 08:17] LABS: BASO % 0.2 % (0-2.0); EOS % 1.5 % (0-4.5); HEMATOCRIT 25.9 % (35.4-49); HEMOGLOBIN 8.7 GM/dL (11.7-16.9); LYMPH % 7.8 % (8-40); MCH 31.4 pg (25.7-33.7); MCHC 33.7 g/dl (32.0-35.9); MEAN CELL VOLUME 93.3 fl (80-96); MEAN PLT VOLUME 8.1 fl (7.5-11.1); MONO % 10.8 % (3.8-10.2); NEUT % 79.7 % (42.8-82.8); PLATELET COUNT 327 K/MM3 (134-434); RBC 2.78 M/mm3 (4.00-5.60); RDW 17.6 % (11.9-15.9); WHITE BLOOD COUNT 10.2 K/mm3 (4.0-10.0)
[2017-04-20 08:19] LABS: RETICULOCYTES 2.58 % (0.5-1.5)
[2017-04-20 08:45] LABS: ANION GAP 9 (8-16); BLOOD UREA NITROGEN 19 mg/dL (7-18); CALCIUM 7.9 mg/dL (8.5-10.1); CHLORIDE 100 mmol/L (98-107); CO2 29 mmol/L (21-32); GLUCOSE,RANDOM 173 mg/dL (74-106); MAGNESIUM 1.5 mg/dL (1.8-2.4); POTASSIUM 3.6 mmol/L (3.5-5.1); SODIUM 138 mmol/L (136-145)
[2017-04-20 08:55] LABS: ALBUMIN 2.1 g/dl (3.4-5.0); ANION GAP 5 (8-16); BLOOD UREA NITROGEN 18 mg/dL (7-18); CALCIUM 7.6 mg/dL (8.5-10.1); CHLORIDE 101 mmol/L (98-107); CO2 32 mmol/L (21-32); GLUCOSE,RANDOM 176 mg/dL (74-106); POTASSIUM 3.6 mmol/L (3.5-5.1); SGOT/AST 51 U/L (15-37); SGPT/ALT 41 U/L (12-78); SODIUM 138 mmol/L (136-145)
[2017-04-20 08:57] LABS: ALK PHOS 134 U/L (45-117); BILIRUBIN,TOTAL 1.4 mg/dL (0.2-1.0); LDH 302 U/L (87-241); TOT PROT 5.2 g/dl (6.4-8.2)
[2017-04-20] MEDS: morphine CARPU-JECT 10 MG/1 ML DISP.SYRIN IVPUSH PRN ×3 (09:01→17:43)
[2017-04-20] MEDS: ENOXAPARIN NA (PORCINE) 30 MG/0.3 ML DISP.SYRIN SQ SCH (10:13)
[2017-04-20] MEDS: amLODIPine BESYLATE 10 MG TABLET (FP) PO SCH (10:13)
[2017-04-20] MEDS: TIMOLOL 0.5% OPHTHALMIC SOL 5 ML BOTTLE OU SCH ×2 (10:13→21:53)
[2017-04-20] MEDS: FERROUS SO4 325 MG TABLET (FP) PO SCH ×2 (10:13→21:50)
[2017-04-20] MEDS: DORZOLAMIDE 2% HCL OPHTHALMIC SOLUTION 10 ML BOTTLE OU SCH ×2 (10:13→21:52)
[2017-04-20] MEDS: BRIMONIDINE TARTRATE 0.2% OPHTHALMIC 5 ML BOTTLE OU SCH (10:14)
[2017-04-20] MEDS: BACITRACIN 15 GM TUBE TOPICAL OINTMENT TP SCH ×2 (10:14→21:54)
--- NOTE | 2017-04-20 11:42 | PN ---
Progress Note, Physician History of Present Illness: IN BED CONFUSED - Current Medication List Current Medications: Active Medications Amlodipine Besylate (Norvasc -) 10 mg PO DAILY [facility] Last Admin: 04/20/17 10:13 Dose: 10 mg Bacitracin (Bacitracin -) 1 applic TP BID [facility] Last Admin: 04/20/17 10:14 Dose: 1 applic Brimonidine Tartrate (Alphagan 0.2% -) 1 drop OU DAILY [facility] Last Admin: 04/20/17 10:14 Dose: 1 drop Docusate Sodium (Colace -) 300 mg PO [facility] Last Admin: 04/19/17 23:06 Dose: Not Given Dorzolamide HCl (Trusopt 2%) 1 drop OU BID [facility] Last Admin: 04/20/17 10:13 Dose: 1 drop Enoxaparin Sodium (Lovenox -) 30 mg SQ DAILY [facility] Last Admin: 04/20/17 10:13 Dose: 30 mg Ferrous Sulfate (Feosol -) 325 mg PO BID [facility] Last Admin: 04/20/17 10:13 Dose: 325 mg Latanoprost (Xalatan 0.005% Eye Drops -) 1 drop OU DAILY@1800 [facility] Last Admin: 04/19/17 18:55 Dose: Not Given Morphine Sulfate (Morphine Injection -) 1 mg IVPUSH Q4H PRN PRN Reason: PAIN Last Admin: 04/20/17 09:01 Dose: 1 mg Olanzapine (Zyprexa -) 5 mg PO [facility] Last Admin: 04/19/17 23:54 Dose: 5 mg Timolol Maleate (Timoptic 0.5%) 1 drop OU BID [facility] Last Admin: 04/20/17 10:13 Dose: 1 drop - Objective Vital Signs: Vital Signs Temperature 98.6 F 04/20/17 00:34 Pulse Rate 80 04/20/17 00:34 Respiratory Rate 20 04/20/17 00:34 Blood Pressure 148/80 04/20/17 00:34 O2 Sat by Pulse Oximetry (%) 98 04/19/17 22:00 Cardiovascular: Yes: Regular Rate and Rhythm Respiratory: Yes: Regular, CTA Bilaterally Gastrointestinal: Yes: Normal Bowel Sounds, Soft Labs: CBC, BMP 04/20/17 07:30 04/20/17 07:30 INR, PTT INR 1.25 (0.82-1.09) H 04/15/17 10:52 Problem List - Problems (1) Status post hip surgery Assessment/Plan: [facility] 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 Operation: right fmeur removal of hardware with conversion to hemiarthroplasty Post-Operative Diagnosis: Same as Pre-op Surgeon: Bam Lucas Code(s): Z98.890 - OTHER SPECIFIED POSTPROCEDURAL STATES (2) REBEKA (acute kidney injury) Assessment/Plan: IMPROVING ON IVF RENAL ON CASE Code(s): N17.9 - ACUTE KIDNEY FAILURE, UNSPECIFIED (3) Dementia Assessment/Plan: ON ZYPREXA Code(s): F03.90 - UNSPECIFIED DEMENTIA WITHOUT BEHAVIORAL DISTURBANCE Qualifiers: Dementia type: Alzheimer's disease Dementia behavioral disturbance: with behavioral disturbance (4) Altered mental status Assessment/Plan: ABOVE Code(s): R41.82 - ALTERED MENTAL STATUS, UNSPECIFIED Qualifiers: Altered mental status type: delirium Qualified Code(s): R41.0 - Disorientation, unspecified (5) Anemia Assessment/Plan: FOLLOW LABS MAY NEED TRANSFUSION==ON HOLD MONITOR LABS Code(s): D64.9 - ANEMIA, UNSPECIFIED
--- NOTE | 2017-04-20 13:28 | PN ---
Progress Note (short form) - Note Progress Note: Pt seen and examined. O/E: is calmer than yesterday. NCAT CTA b/l Abd soft LE: incision OK Last Vital Signs Temp Pulse Resp BP Pulse Ox 98.6 F 80 20 148/80 98 04/20/17 00:34 04/20/17 00:34 04/20/17 00:34 04/20/17 00:34 04/19/17 22:00 CBC, BMP 04/20/17 07:30 04/20/17 07:30 Current Medications Generic Name Dose Route Start Last Admin Trade Name Freq PRN Reason Stop Dose Admin Amlodipine Besylate 10 mg 04/16/17 10:00 04/20/17 10:13 Norvasc - PO 10 mg DAILY [facility] Administration Bacitracin 1 applic 04/17/17 22:00 04/20/17 10:14 Bacitracin - TP 1 applic BID [facility] Administration Brimonidine Tartrate 1 drop 04/16/17 10:00 04/20/17 10:14 Alphagan 0.2% - OU 1 drop DAILY [facility] Administration Docusate Sodium 300 mg 04/19/17 22:00 04/19/17 23:06 Colace - PO Not Given HS [facility] Dorzolamide HCl 1 drop 04/15/17 22:00 04/20/17 10:13 Trusopt 2% OU 1 drop BID [facility] Administration Enoxaparin Sodium 30 mg 04/16/17 10:00 04/20/17 10:13 Lovenox - SQ 30 mg DAILY [facility] Administration Ferrous Sulfate 325 mg 04/19/17 22:00 04/20/17 10:13 Feosol - PO 325 mg BID [facility] Administration Latanoprost 1 drop 04/15/17 18:00 04/19/17 18:55 Xalatan 0.005% Eye Drops - OU Not Given DAILY@1800 [facility] Morphine Sulfate 1 mg 04/19/17 15:13 04/20/17 09:01 Morphine Injection - IVPUSH 1 mg Q4H PRN Administration PAIN Olanzapine 5 mg 04/18/17 22:00 04/19/17 23:54 Zyprexa - PO 5 mg HS [facility] Administration Timolol Maleate 1 drop 04/15/17 22:00 04/20/17 10:13 Timoptic 0.5% OU 1 drop BID [facility] Administration will await w/u anemia will hold off on prbcs today d/w son
[2017-04-20] MEDS: LATANOPROST 0.005% OPHTH SOLN 2.5ML BOTTLE OU SCH (17:15)
[2017-04-20] MEDS ORDERED: PT OWN MED DRAWER 7, Y5N ONE (21:31)
[2017-04-20] MEDS: DOCUSATE SODIUM 100 MG CAPSULE (FP) PO SCH (21:50)
[2017-04-20] MEDS: OLANZapine 5 MG TABLET PO SCH (21:52)
[2017-04-21 06:06] LABS: SERUM IRON SATURATION 23 % (15-55); TOTAL IRON BINDING CAPACITY 123 ug/dL (250-450); UIBC 95 ug/dL (111-343)
[2017-04-21 07:32] LABS: BASO % 0.3 % (0-2.0); EOS % 1.6 % (0-4.5); HEMATOCRIT 24.2 % (35.4-49); LYMPH % 9.7 % (8-40); MCH 31.1 pg (25.7-33.7); MCHC 32.9 g/dl (32.0-35.9); MEAN CELL VOLUME 94.5 fl (80-96); MEAN PLT VOLUME 8.8 fl (7.5-11.1); MONO % 13.3 % (3.8-10.2); NEUT % 75.1 % (42.8-82.8); PLATELET COUNT 285 K/MM3 (134-434); RBC 2.56 M/mm3 (4.00-5.60); RDW 17.4 % (11.9-15.9); WHITE BLOOD COUNT 9.9 K/mm3 (4.0-10.0)
[2017-04-21 08:07] LABS: CHLORIDE 101 mmol/L (98-107); POTASSIUM 4.3 mmol/L (3.5-5.1); SODIUM 138 mmol/L (136-145)
[2017-04-21 08:14] LABS: ALBUMIN 1.9 g/dl (3.4-5.0); ALK PHOS 141 U/L (45-117); ANION GAP 9 (8-16); BILIRUBIN,TOTAL 1.1 mg/dL (0.2-1.0); BLOOD UREA NITROGEN 20 mg/dL (7-18); CALCIUM 7.8 mg/dL (8.5-10.1); CO2 28 mmol/L (21-32); CREATININE 0.9 mg/dL (0.7-1.3); GLUCOSE,RANDOM 160 mg/dL (74-106); SGOT/AST 71 U/L (15-37); SGPT/ALT 56 U/L (12-78)
--- NOTE | 2017-04-21 08:44 | PN ---
Progress Note (short form) - Note Progress Note: Ortho Pt seen and examined s/p right conversion hip jefferson Selected Entries 04/21/17 08:43 Temperature 99.3 F Pulse Rate 88 Respiratory 18 Rate Blood Pressure 139/64 Laboratory Tests 04/21/17 07:00 WBC 9.9 Hgb 8.0 L Hct 24.2 L Plt Count 285 dressing c/d/i, calf soft, nt a/p PT if able dvt ppx pain control d/c planning
[2017-04-21] MEDS ORDERED: SODIUM PHOSPHATE/NA BIPHOS 133 ML ENEMA PR ONE (09:30)
[2017-04-21] MEDS ORDERED: PT OWN MED DRAWER 7, Y5N ONE ×3 (10:00→21:09)
[2017-04-21] MEDS: FERROUS SO4 325 MG TABLET (FP) PO SCH ×2 (10:05→21:33)
[2017-04-21] MEDS: amLODIPine BESYLATE 10 MG TABLET (FP) PO SCH (10:05)
[2017-04-21] MEDS: ENOXAPARIN NA (PORCINE) 30 MG/0.3 ML DISP.SYRIN SQ SCH (10:05)
[2017-04-21] MEDS: BRIMONIDINE TARTRATE 0.2% OPHTHALMIC 5 ML BOTTLE OU SCH (10:06)
[2017-04-21] MEDS: BACITRACIN 15 GM TUBE TOPICAL OINTMENT TP SCH ×2 (10:07→21:13)
[2017-04-21] MEDS: TIMOLOL 0.5% OPHTHALMIC SOL 5 ML BOTTLE OU SCH ×2 (10:07→21:37)
[2017-04-21] MEDS: DORZOLAMIDE 2% HCL OPHTHALMIC SOLUTION 10 ML BOTTLE OU SCH ×2 (10:07→22:50)
--- NOTE | 2017-04-21 10:57 | PN ---
Progress Note, Physician Chief Complaint: s/p right femur removal of hardware with conversion to hemiarthroplasty - Current Medication List Current Medications: Active Medications Amlodipine Besylate (Norvasc -) 10 mg PO DAILY [facility] Last Admin: 04/21/17 10:05 Dose: 10 mg Bacitracin (Bacitracin -) 1 applic TP BID [facility] Last Admin: 04/21/17 10:07 Dose: 1 applic Brimonidine Tartrate (Alphagan 0.2% -) 1 drop OU DAILY [facility] Last Admin: 04/21/17 10:06 Dose: 1 drop Docusate Sodium (Colace -) 300 mg PO [facility] Last Admin: 04/20/17 21:50 Dose: 300 mg Dorzolamide HCl (Trusopt 2%) 1 drop OU BID [facility] Last Admin: 04/21/17 10:07 Dose: 1 drop Enoxaparin Sodium (Lovenox -) 30 mg SQ DAILY [facility] Last Admin: 04/21/17 10:05 Dose: 30 mg Ferrous Sulfate (Feosol -) 325 mg PO BID [facility] Last Admin: 04/21/17 10:05 Dose: 325 mg Latanoprost (Xalatan 0.005% Eye Drops -) 1 drop OU DAILY@1800 [facility] Last Admin: 04/20/17 17:15 Dose: Not Given Olanzapine (Zyprexa -) 5 mg PO [facility] Last Admin: 04/20/17 21:52 Dose: 5 mg Oxycodone HCl (Roxicodone -) 5 mg PO Q6H PRN PRN Reason: PAIN Timolol Maleate (Timoptic 0.5%) 1 drop OU BID [facility] Last Admin: 04/21/17 10:07 Dose: 1 drop - Objective Vital Signs: Vital Signs Temperature 99.3 F 04/21/17 08:43 Pulse Rate 88 04/21/17 08:43 Respiratory Rate 18 04/21/17 08:43 Blood Pressure 139/64 04/21/17 08:43 O2 Sat by Pulse Oximetry (%) 97 04/20/17 22:00 Constitutional: Yes: Well Nourished, No Distress, Calm Cardiovascular: Yes: Regular Rate and Rhythm Respiratory: Yes: Regular Musculoskeletal: Yes: WNL Extremities: Yes: WNL Edema: No Peripheral Pulses WNL: Yes Neurological: Yes: Alert, Confusion Psychiatric: Yes: Alert Labs: CBC, BMP 04/21/17 07:00 04/21/17 07:00 INR, PTT INR 1.25 (0.82-1.09) H 04/15/17 10:52 Problem List - Problems (1) Anemia Assessment/Plan: -seen by Hematology -received PRBC 2 units -Iron, B 1- normal, -folate(added) -A1c pending -check for anemia of CD -stool OB pending Code(s): D64.9 - ANEMIA, UNSPECIFIED (2) Dementia Assessment/Plan: -seen y psychiatry and psychology -likely exacerbated secondary to anesthesia or pain meds -Zyprexa increased 5mg po HS by psychiatry -Caregivers to maintain safety precautions Code(s): F03.90 - UNSPECIFIED DEMENTIA WITHOUT BEHAVIORAL DISTURBANCE Qualifiers: Dementia type: Alzheimer's disease Dementia behavioral disturbance: with behavioral disturbance (3) Status post hip surgery Assessment/Plan: -pain management -d/c morphine -switch to oxycodone 5 mg po Q6H PRN -colace and senna for constipation Code(s): Z98.890 - OTHER SPECIFIED POSTPROCEDURAL STATES (4) Altered mental status Code(s): R41.82 - ALTERED MENTAL STATUS, UNSPECIFIED Qualifiers: Altered mental status type: delirium Qualified Code(s): R41.0 - Disorientation, unspecified (5) Constipation Assessment/Plan: -colace, senna Code(s): K59.00 - CONSTIPATION, UNSPECIFIED Assessment/Plan see problem list DVT prophylaxis GI prophylaxis D/C to SNF once cleared by hematology and H/H stabilized
[2017-04-21] MEDS: OLANZapine 5 MG TABLET PO SCH (21:32)
[2017-04-21] MEDS: SENNOSIDES 8.8 MG/5 ML BULK BOTTLE PO SCH (21:32)
[2017-04-21] MEDS: DOCUSATE SODIUM 100 MG CAPSULE (FP) PO SCH (22:07)
[2017-04-22] MEDS ORDERED: PT OWN MED DRAWER 7, Y5N ONE ×2 (07:04→17:04)
[2017-04-22] MEDS ORDERED: INSULIN (NOVOLOG) ASPART 100 UNITS/ML 10ML VIAL ONE (07:04)
[2017-04-22] MEDS: FERROUS SO4 325 MG TABLET (FP) PO SCH ×2 (09:39→21:21)
[2017-04-22] MEDS: amLODIPine BESYLATE 10 MG TABLET (FP) PO SCH (09:39)
[2017-04-22] MEDS: BRIMONIDINE TARTRATE 0.2% OPHTHALMIC 5 ML BOTTLE OU SCH (09:39)
[2017-04-22] MEDS: ENOXAPARIN NA (PORCINE) 30 MG/0.3 ML DISP.SYRIN SQ SCH (09:39)
[2017-04-22] MEDS: TIMOLOL 0.5% OPHTHALMIC SOL 5 ML BOTTLE OU SCH ×2 (09:40→21:22)
[2017-04-22] MEDS: DORZOLAMIDE 2% HCL OPHTHALMIC SOLUTION 10 ML BOTTLE OU SCH ×2 (09:41→21:23)
[2017-04-22] MEDS: BACITRACIN 15 GM TUBE TOPICAL OINTMENT TP SCH ×2 (09:42→21:23)
--- NOTE | 2017-04-22 12:34 | PN ---
Progress Note (short form) - Note Progress Note: Pt seen and examined. condition unchanged. In restraints. agitated ROS unobtainable O/E: In restraints, agitated NCAT CTA b/l Abd soft LE: incision OK Last Vital Signs Temp Pulse Resp BP Pulse Ox 99.2 F 83 19 146/73 97 04/22/17 05:40 04/22/17 05:40 04/22/17 05:40 04/22/17 05:40 04/21/17 21:00 CBC, BMP 04/21/17 07:00 04/21/17 07:00 Current Medications Generic Name Dose Route Start Last Admin Trade Name Freq PRN Reason Stop Dose Admin Amlodipine Besylate 10 mg 04/16/17 10:00 04/22/17 09:39 Norvasc - PO 10 mg DAILY [facility] Administration Bacitracin 1 applic 04/17/17 22:00 04/22/17 09:42 Bacitracin - TP 1 applic BID [facility]ANDA Administration Brimonidine Tartrate 1 drop 04/16/17 10:00 04/22/17 09:39 Alphagan 0.2% - OU 1 drop DAILY [facility] Administration Docusate Sodium 300 mg 04/19/17 22:00 04/21/17 22:07 Colace - PO 300 mg HS [facility]DA Administration Dorzolamide HCl 1 drop 04/15/17 22:00 04/22/17 09:41 Trusopt 2% OU 1 drop BID [facility] Administration Enoxaparin Sodium 30 mg 04/16/17 10:00 04/22/17 09:39 Lovenox - SQ 30 mg DAILY [facility] Administration Ferrous Sulfate 325 mg 04/19/17 22:00 04/22/17 09:39 Feosol - PO 325 mg BID [facility]ANDA Administration Latanoprost 1 drop 04/15/17 18:00 04/20/17 17:15 Xalatan 0.005% Eye Drops - OU Not Given DAILY@1800 [facility] Olanzapine 5 mg 04/18/17 22:00 04/21/17 21:32 Zyprexa - PO 5 mg HS [facility]DA Administration Oxycodone HCl 5 mg 04/21/17 10:56 Roxicodone - PO Q6H PRN PAIN Senna 8.8 mg 04/21/17 22:00 04/21/17 21:32 Senna Oral Solution - PO 8.8 mg HS SHANDA Administration Timolol Maleate 1 drop 04/15/17 22:00 04/22/17 09:40 Timoptic 0.5% OU 1 drop BID [facility] Administration reviewed Iron studies, consistent with ACD/ACI. unclear if ever had a GI w/u will transfuse for hgb <8 or if any evidence of active bleeding. stool occult still not collected.
[2017-04-22] MEDS ORDERED: IRON SUCROSE INJECTION 100 MG in SODIUM CHLORIDE 95 ML IVPB ONE (14:42)
--- NOTE | 2017-04-22 14:47 | PN ---
Progress Note, Physician Chief Complaint: CONFUSED STILL AGITATED - Current Medication List Current Medications: Active Medications Amlodipine Besylate (Norvasc -) 10 mg PO DAILY [facility] Last Admin: 04/22/17 09:39 Dose: 10 mg Bacitracin (Bacitracin -) 1 applic TP BID [facility] Last Admin: 04/22/17 09:42 Dose: 1 applic Brimonidine Tartrate (Alphagan 0.2% -) 1 drop OU DAILY [facility] Last Admin: 04/22/17 09:39 Dose: 1 drop Docusate Sodium (Colace -) 300 mg PO [facility] Last Admin: 04/21/17 22:07 Dose: 300 mg Dorzolamide HCl (Trusopt 2%) 1 drop OU BID [facility] Last Admin: 04/22/17 09:41 Dose: 1 drop Enoxaparin Sodium (Lovenox -) 30 mg SQ DAILY [facility] Last Admin: 04/22/17 09:39 Dose: 30 mg Ferrous Sulfate (Feosol -) 325 mg PO BID [facility] Last Admin: 04/22/17 09:39 Dose: 325 mg Iron Sucrose 100 mg/ Sodium (Chloride) 100 mls @ 200 mls/hr IVPB ONCE ONE Stop: 04/22/17 15:11 Latanoprost (Xalatan 0.005% Eye Drops -) 1 drop OU DAILY@1800 [facility] Last Admin: 04/20/17 17:15 Dose: Not Given Olanzapine (Zyprexa -) 5 mg PO [facility] Last Admin: 04/21/17 21:32 Dose: 5 mg Oxycodone HCl (Roxicodone -) 5 mg PO Q6H PRN PRN Reason: PAIN Senna (Senna Oral Solution -) 8.8 mg PO [facility] Last Admin: 04/21/17 21:32 Dose: 8.8 mg Timolol Maleate (Timoptic 0.5%) 1 drop OU BID [facility] Last Admin: 04/22/17 09:40 Dose: 1 drop - Objective Vital Signs: Vital Signs Temperature 99.2 F 04/22/17 05:40 Pulse Rate 83 04/22/17 05:40 Respiratory Rate 19 04/22/17 05:40 Blood Pressure 146/73 04/22/17 05:40 O2 Sat by Pulse Oximetry (%) 97 04/21/17 21:00 Constitutional: Yes: Moderate Distress Eyes: Yes: WNL HENT: Yes: WNL Neck: Yes: WNL Cardiovascular: Yes: WNL Respiratory: Yes: WNL Gastrointestinal: Yes: WNL Genitourinary: Yes: Incontinence Musculoskeletal: Yes: Joint Stiffness, Muscle Weakness Extremities: Yes: WNL Edema: No Peripheral Pulses WNL: Yes Integumentary: Yes: Bruising Wound/Incision: Yes: Clean/Dry Neurological: Yes: Confusion, Pre-Existing Deficit ...Motor Strength: LLE, RLE Psychiatric: Yes: Agitated Labs: CBC, BMP 04/21/17 07:00 04/21/17 07:00 INR, PTT INR 1.25 (0.82-1.09) H 04/15/17 10:52 Problem List - Problems (1) Inability to ambulate due to hip Code(s): R26.2 - DIFFICULTY IN WALKING, NOT ELSEWHERE CLASSIFIED (2) Status post hip surgery Code(s): Z98.890 - OTHER SPECIFIED POSTPROCEDURAL STATES (3) Surgical complication Code(s): T81.9XXA - UNSPECIFIED COMPLICATION OF PROCEDURE, INITIAL ENCOUNTER Qualifiers: Surgical complication system/body Area: musculoskeletal system Bone affected by surgical complication: femur Laterality: right (4) B12 deficiency Code(s): E53.8 - DEFICIENCY OF OTHER SPECIFIED B GROUP VITAMINS (5) Dementia Code(s): F03.90 - UNSPECIFIED DEMENTIA WITHOUT BEHAVIORAL DISTURBANCE Qualifiers: Dementia type: Alzheimer's disease Dementia behavioral disturbance: with behavioral disturbance (6) Anemia Code(s): D64.9 - ANEMIA, UNSPECIFIED Qualifiers: Other causes of anemia: chronic disease, other (7) Dementia Code(s): F03.90 - UNSPECIFIED DEMENTIA WITHOUT BEHAVIORAL DISTURBANCE Qualifiers: Dementia type: Alzheimer's disease Dementia behavioral disturbance: with behavioral disturbance Assessment/Plan RESTRAINTS NEEDED IRON SUCROSE IV X 1 GI EVAL OCCULT STOOL HEME EVAL PSYCH REEVAL PT
--- NOTE | 2017-04-22 15:25 | CON.GI ---
Consult Consult Specialty:: GI Reason for Consultation:: Anemia - History of Present Illness History of Present Illness: Chart reviewed. Events noted. An 86 yom admitted with orthopedic issues. Noted to be anemic. Hgb on admission was 9g/dl, normocytic, normochronic anemia with high RDW. Had Orthopedic surgery on 04/15/17 and received blood transfusion (2u) for hgb 6.9 on 04/16/17. No overt GI bleeding documented during this stay. Formed , soft brown stool in rectal vault on exam (hemoccult sent). No diarrhea, melena , hematochezia, or hematemesis reported. No known GI work up for anemia in the past. - History Source History Provided By: Medical Record Limitations to Obtaining History: Dementia - Past Medical History [employer]: Yes: Dementia Cardio/Vascular: Yes: HTN Psych: Yes: Anxiety, Other - Past Surgical History Additional Surgical History: hip surgery - Alcohol/Substance Use Hx Alcohol Use: Yes (Past HX of recreational drinking.) - Smoking History Smoking history: Never smoked - Social History Usual Living Arrangement: With Child Home Medications - Allergies Allergies/Adverse Reactions: Allergies Allergy/AdvReac Type Severity Reaction Status Date / Time No Known Allergies Allergy Verified 04/14/17 18:43 - Home Medications Home Medications: Ambulatory Orders Amlodipine Besylate [Norvasc -] 10 mg PO DAILY 04/14/17 Brimonidine Tartrate [Alphagan 0.2% -] 1 drop OU DAILY 04/14/17 Dorzolamide HCl/Timolol Maleat [Cosopt Eye Drops] 10 ml OP DAILY 04/14/17 Olanzapine [Zyprexa -] 2.5 mg PO DAILY 04/14/17 Quetiapine Fumarate [Seroquel -] 25 mg PO HS 04/14/17 Travoprost [Travatan Z] 2.5 ml OP DAILY 04/14/17 Family Disease History - Family Disease History Family History: Unremarkable (non-contributing) Review of Systems Unable to obtain ROS, reason: unable to obtain Physical Exam-GI Vital Signs: Vital Signs Temperature 99 F 04/22/17 09:00 Pulse Rate 85 04/22/17 09:00 Respiratory Rate 18 04/22/17 09:00 Blood Pressure 138/65 04/22/17 09:00 O2 Sat by Pulse Oximetry (%) 97 04/21/17 21:00 Constitutional: Yes: No Distress Eyes: Yes: Conjunctiva Clear HENT: Yes: Atraumatic Neck: Yes: Supple Cardiovascular: Yes: Regular Rate and Rhythm Respiratory: Yes: Regular Gastrointestinal Inspection: No: Ascites, Distention ...Auscultate: Yes: Normoactive Bowel Sounds ...Palpate: Yes: Soft. No: Firm/Rigid, Guarding, Mass, Tenderness, Tenderness, Epigastium, Tenderness, Rebound ...Percussion: No: Fluid Wave ...Rectal Exam: Yes: Sphincter Tone Poor, Other (brown stool, hemoccult cards sent to lab for testing (no developer on the floor)). No: Hemorrhoids/External , Induration, Inflammation, Mass Neurological: Yes: Alert, Confusion Labs: CBC, BMP 04/21/17 07:00 04/21/17 07:00 INR, PTT INR 1.25 (0.82-1.09) H 04/15/17 10:52 Laboratory Tests 04/14/17 04/14/17 04/14/17 20:10 20:10 23:10 WBC 13.3 H D RBC 3.00 L D Hgb 9.6 L D Hct 28.7 L D MCV 95.8 MCH 32.0 MCHC 33.4 RDW 14.9 Plt Count 436 H D MPV 8.6 Neutrophils % 82.5 D Lymphocytes % 6.9 L D Monocytes % 9.4 Eosinophils % 0.6 Basophils % 0.6 ESR Retic Count PT with INR INR Sodium 136 Potassium 4.6 Chloride 101 Carbon Dioxide 29 Anion Gap 6 L BUN 33 H D Creatinine 2.5 H D Creat Clearance w eGFR 24.55 Random Glucose 167 H D Hemoglobin A1c % Calcium 8.7 Phosphorus Magnesium Iron TIBC Iron Saturation Ferritin Total Bilirubin 1.2 H D AST 39 H D ALT 35 D Alkaline Phosphatase 126 H D LD Total Creatine Kinase Creatine Kinase Index CK-MB (CK-2) C-Reactive Protein Total Protein 6.7 Albumin 3.3 L Vitamin B12 Serum Folate Urine Color Dkyellow Urine Appearance Cloudy Urine pH 5.0 Ur Specific May 1.012 Urine Protein Negative Urine Glucose (UA) 1+ H Urine Ketones 1+ H Urine Blood Negative Urine Nitrite Negative Urine Bilirubin Negative Urine Urobilinogen Negative Ur Leukocyte Esterase Negative Blood Type Antibody Screen Crossmatch Crossmatch IS Only 04/15/17 04/15/17 04/15/17 06:37 06:37 10:52 WBC 11.7 H RBC 2.59 L Hgb 8.3 L D Hct 25.1 L MCV 96.7 H MCH 32.2 MCHC 33.2 RDW 15.1 Plt Count 364 MPV 8.6 Neutrophils % 83.3 H Lymphocytes % 6.9 L Monocytes % 8.5 Eosinophils % 0.9 Basophils % 0.4 ESR Retic Count PT with INR INR Sodium 140 Potassium 4.2 Chloride 105 Carbon Dioxide 25 Anion Gap 10 BUN 31 H Creatinine 1.9 H D Creat Clearance w eGFR Random Glucose 151 H Hemoglobin A1c % Calcium 8.1 L Phosphorus 4.3 Magnesium 2.0 Iron TIBC Iron Saturation Ferritin Total Bilirubin AST ALT Alkaline Phosphatase LD Total Creatine Kinase Creatine Kinase Index CK-MB (CK-2) C-Reactive Protein Total Protein Albumin Vitamin B12 Serum Folate Urine Color Urine Appearance Urine pH Ur Specific May Urine Protein Urine Glucose (UA) Urine Ketones Urine Blood Urine Nitrite Urine Bilirubin Urine Urobilinogen Ur Leukocyte Esterase Blood Type B POSITIVE Antibody Screen Negative Crossmatch Crossmatch IS Only See Detail 04/15/17 04/15/17 04/16/17 10:52 18:45 07:00 WBC RBC Hgb Hct MCV MCH MCHC RDW Plt Count MPV Neutrophils % Lymphocytes % Monocytes % Eosinophils % Basophils % ESR Retic Count PT with INR 14.10 H INR 1.25 H Sodium 143 Potassium 4.6 Chloride 108 H Carbon Dioxide 26 Anion Gap 9 BUN 30 H Creatinine 1.3 D Creat Clearance w eGFR Random Glucose 152 H Hemoglobin A1c % Calcium 8.1 L Phosphorus 3.1 D Magnesium 1.7 L Iron TIBC Iron Saturation Ferritin Total Bilirubin AST ALT Alkaline Phosphatase LD Total Creatine Kinase Creatine Kinase Index CK-MB (CK-2) C-Reactive Protein 6.0 H Total Protein Albumin Vitamin B12 Serum Folate Urine Color Urine Appearance Urine pH Ur Specific May Urine Protein Urine Glucose (UA) Urine Ketones Urine Blood Urine Nitrite Urine Bilirubin Urine Urobilinogen Ur Leukocyte Esterase Blood Type B POSITIVE Antibody Screen Crossmatch See Detail Crossmatch IS Only 04/16/17 04/16/17 04/17/17 07:00 07:00 08:30 WBC 14.7 H 15.5 H RBC 2.17 L 2.94 L D Hgb 6.9 L* D 9.0 L D Hct 21.2 L D 27.0 L D MCV 97.9 H 91.8 D MCH 31.9 30.8 MCHC 32.6 33.5 RDW 15.3 18.6 H D Plt Count 362 324 MPV 8.6 8.4 Neutrophils % Lymphocytes % Monocytes % Eosinophils % Basophils % ESR 27 H Retic Count PT with INR INR Sodium Potassium Chloride Carbon Dioxide Anion Gap BUN Creatinine Creat Clearance w eGFR Random Glucose Hemoglobin A1c % Calcium Phosphorus Magnesium Iron TIBC Iron Saturation Ferritin Total Bilirubin AST ALT Alkaline Phosphatase LD Total Creatine Kinase Creatine Kinase Index CK-MB (CK-2) C-Reactive Protein Total Protein Albumin Vitamin B12 Serum Folate Urine Color Urine Appearance Urine pH Ur Specific May Urine Protein Urine Glucose (UA) Urine Ketones Urine Blood Urine Nitrite Urine Bilirubin Urine Urobilinogen Ur Leukocyte Esterase Blood Type Antibody Screen Crossmatch Crossmatch IS Only 04/17/17 04/18/17 04/18/17 08:30 08:15 08:15 WBC 14.6 H RBC 2.83 L Hgb 8.6 L Hct 26.2 L MCV 92.5 MCH 30.5 MCHC 33.0 RDW 18.1 H Plt Count 296 MPV 8.4 Neutrophils % 83.7 H Lymphocytes % 6.1 L Monocytes % 9.4 Eosinophils % 0.6 Basophils % 0.2 ESR Retic Count PT with INR INR Sodium 143 144 Potassium 4.5 4.3 Chloride 111 H 109 H Carbon Dioxide 23 26 Anion Gap 9 9 BUN 28 H 23 H Creatinine 1.1 1.0 Creat Clearance w eGFR > 60 Random Glucose 159 H 159 H Hemoglobin A1c % Calcium 8.0 L 8.6 Phosphorus Magnesium 1.8 Iron TIBC Iron Saturation Ferritin Total Bilirubin 1.2 H AST 30 D ALT 15 D Alkaline Phosphatase 103 LD Total Creatine Kinase 151 Creatine Kinase Index 1.5 CK-MB (CK-2) 2.311 C-Reactive Protein Total Protein 5.2 L D Albumin 2.2 L D Vitamin B12 Serum Folate Urine Color Urine Appearance Urine pH Ur Specific May Urine Protein Urine Glucose (UA) Urine Ketones Urine Blood Urine Nitrite Urine Bilirubin Urine Urobilinogen Ur Leukocyte Esterase Blood Type Antibody Screen Crossmatch Crossmatch IS Only 04/18/17 04/19/17 04/19/17 13:00 07:00 07:00 WBC 11.7 H RBC 2.47 L Hgb 7.7 L D Hct 23.1 L MCV 93.6 MCH 31.3 MCHC 33.5 RDW 18.0 H Plt Count 274 MPV 8.3 Neutrophils % Lymphocytes % Monocytes % Eosinophils % Basophils % ESR Retic Count PT with INR INR Sodium 141 Potassium 4.3 Chloride 107 Carbon Dioxide 26 Anion Gap 8 BUN 21 H Creatinine 0.9 Creat Clearance w eGFR Random Glucose 176 H Hemoglobin A1c % Calcium 7.9 L Phosphorus Magnesium 1.7 L Iron 28 L TIBC Iron Saturation Ferritin Total Bilirubin AST ALT Alkaline Phosphatase LD Total Creatine Kinase Creatine Kinase Index CK-MB (CK-2) C-Reactive Protein Total Protein Albumin Vitamin B12 Serum Folate Urine Color Urine Appearance Urine pH Ur Specific May Urine Protein Urine Glucose (UA) Urine Ketones Urine Blood Urine Nitrite Urine Bilirubin Urine Urobilinogen Ur Leukocyte Esterase Blood Type Antibody Screen Crossmatch Crossmatch IS Only 04/19/17 04/20/17 04/20/17 10:00 07:30 07:30 WBC 10.2 H RBC 2.78 L Hgb 8.7 L D Hct 25.9 L MCV 93.3 MCH 31.4 MCHC 33.7 RDW 17.6 H Plt Count 327 MPV 8.1 Neutrophils % 79.7 Lymphocytes % 7.8 L D Monocytes % 10.8 H Eosinophils % 1.5 D Basophils % 0.2 ESR Retic Count PT with INR INR Sodium 138 Potassium 3.6 Chloride 101 Carbon Dioxide 32 D Anion Gap 5 L BUN 18 Creatinine 1.0 Creat Clearance w eGFR > 60 Random Glucose 176 H Hemoglobin A1c % Calcium 7.6 L Phosphorus Magnesium Iron TIBC Iron Saturation Ferritin Total Bilirubin 1.4 H AST 51 H D ALT 41 D Alkaline Phosphatase 134 H D LD Total 302 H Creatine Kinase Creatine Kinase Index CK-MB (CK-2) C-Reactive Protein Total Protein 5.2 L Albumin 2.1 L Vitamin B12 Serum Folate Urine Color Urine Appearance Urine pH Ur Specific May Urine Protein Urine Glucose (UA) Urine Ketones Urine Blood Urine Nitrite Urine Bilirubin Urine Urobilinogen Ur Leukocyte Esterase Blood Type B POSITIVE Antibody Screen Negative Crossmatch See Detail Crossmatch IS Only 04/20/17 04/20/17 04/20/17 07:30 07:30 07:30 WBC RBC Hgb Hct MCV MCH MCHC RDW Plt Count MPV Neutrophils % Lymphocytes % Monocytes % Eosinophils % Basophils % ESR 82 H Retic Count 2.58 H PT with INR INR Sodium 138 Potassium 3.6 Chloride 100 Carbon Dioxide 29 Anion Gap 9 BUN 19 H Creatinine 1.0 Creat Clearance w eGFR Random Glucose 173 H Hemoglobin A1c % Calcium 7.9 L Phosphorus Magnesium 1.5 L Iron 28 L TIBC 123 L Iron Saturation 23 Ferritin 1463.567 H Total Bilirubin AST ALT Alkaline Phosphatase LD Total Creatine Kinase Creatine Kinase Index CK-MB (CK-2) C-Reactive Protein 12.3 H D Total Protein Albumin Vitamin B12 Serum Folate Urine Color Urine Appearance Urine pH Ur Specific May Urine Protein Urine Glucose (UA) Urine Ketones Urine Blood Urine Nitrite Urine Bilirubin Urine Urobilinogen Ur Leukocyte Esterase Blood Type Antibody Screen Crossmatch Crossmatch IS Only 04/20/17 04/21/17 04/21/17 07:30 07:00 07:00 WBC 9.9 RBC 2.56 L Hgb 8.0 L Hct 24.2 L MCV 94.5 MCH 31.1 MCHC 32.9 RDW 17.4 H Plt Count 285 MPV 8.8 Neutrophils % 75.1 Lymphocytes % 9.7 D Monocytes % 13.3 H Eosinophils % 1.6 Basophils % 0.3 ESR Retic Count PT with INR INR Sodium 138 Potassium 4.3 Chloride 101 Carbon Dioxide 28 Anion Gap 9 BUN 20 H Creatinine 0.9 Creat Clearance w eGFR > 60 Random Glucose 160 H Hemoglobin A1c % Calcium 7.8 L Phosphorus Magnesium Iron TIBC Iron Saturation Ferritin Total Bilirubin 1.1 H D AST 71 H D ALT 56 D Alkaline Phosphatase 141 H LD Total Creatine Kinase Creatine Kinase Index CK-MB (CK-2) C-Reactive Protein Total Protein 5.0 L Albumin 1.9 L Vitamin B12 1705 H D Serum Folate Urine Color Urine Appearance Urine pH Ur Specific May Urine Protein Urine Glucose (UA) Urine Ketones Urine Blood Urine Nitrite Urine Bilirubin Urine Urobilinogen Ur Leukocyte Esterase Blood Type Antibody Screen Crossmatch Crossmatch IS Only 04/21/17 04/21/17 11:32 11:32 WBC RBC Hgb Hct MCV MCH MCHC RDW Plt Count MPV Neutrophils % Lymphocytes % Monocytes % Eosinophils % Basophils % ESR Retic Count PT with INR INR Sodium Potassium Chloride Carbon Dioxide Anion Gap BUN Creatinine Creat Clearance w eGFR Random Glucose Hemoglobin A1c % 5.5 Calcium Phosphorus Magnesium Iron TIBC Iron Saturation Ferritin Total Bilirubin AST ALT Alkaline Phosphatase LD Total Creatine Kinase Creatine Kinase Index CK-MB (CK-2) C-Reactive Protein Total Protein Albumin Vitamin B12 Serum Folate 6 Urine Color Urine Appearance Urine pH Ur Specific May Urine Protein Urine Glucose (UA) Urine Ketones Urine Blood Urine Nitrite Urine Bilirubin Urine Urobilinogen Ur Leukocyte Esterase Blood Type Antibody Screen Crossmatch Crossmatch IS Only Problem List - Problems (1) Anemia Code(s): D64.9 - ANEMIA, UNSPECIFIED Qualifiers: Other causes of anemia: chronic disease, other (2) Constipation Code(s): K59.00 - CONSTIPATION, UNSPECIFIED (3) Dementia Code(s): F03.90 - UNSPECIFIED DEMENTIA WITHOUT BEHAVIORAL DISTURBANCE Qualifiers: Dementia type: Alzheimer's disease Dementia behavioral disturbance: with behavioral disturbance (4) Status post hip surgery Code(s): Z98.890 - OTHER SPECIFIED POSTPROCEDURAL STATES (5) Altered mental status Code(s): R41.82 - ALTERED MENTAL STATUS, UNSPECIFIED Qualifiers: Altered mental status type: delirium Qualified Code(s): R41.0 - Disorientation, unspecified Assessment/Plan An 86 yom with normocytic, normochromic anemia, which is likely multifatorial, including recent surgery-related blood loss. No signs, or symptoms to suggest recent, or ongoing GI bleed. Chronic gastritis, esophagitis and duodenitis are possible in this frail patient. Agree with PPI, and Iron. Add Miralax bid to stool softeners already prescribed as there is a large amount of stool in the rectum and DEBBIE. Stool for occult blood sent to the lab. Will follow
[2017-04-22] MEDS: LATANOPROST 0.005% OPHTH SOLN 2.5ML BOTTLE OU SCH (17:46)
--- NOTE | 2017-04-22 18:09 | PN ---
Progress Note (short form) - Note Progress Note: Patient seen for psych follow up; plan to send patient to a SNF but he cant be sent due to REstraints. Case discussed with RN in charge. suddenly, patient developed 103 degree fever. \ MS: barely alert, febrile, shaky and restless. Moving around in BEd. poor comprehension. Plan Adjust psych meds. investigate fever.
[2017-04-22] MEDS ORDERED: ACETAMINOPHEN 325 MG TABLET (FP) PO ONE (18:30)
--- NOTE | 2017-04-22 18:32 | HOSP ---
Subjective - Review of Symptoms Subjective: notified by RN that pt had fever 102 during venofer infusion. states pt is having no symptoms or complaints. no hypotension. speaking in clear sentences. instructed to stop infusion and administer tylenol. informed RN to monitor closely. Physical Examination Vital Signs: Vital Signs Temperature 99 F 04/22/17 14:41 Pulse Rate 85 04/22/17 14:41 Respiratory Rate 18 04/22/17 14:41 Blood Pressure 138/65 04/22/17 14:41 O2 Sat by Pulse Oximetry (%) 97 04/21/17 21:00 Labs: CBC, BMP 04/21/17 07:00 04/21/17 07:00
[2017-04-22] MEDS: OLANZapine 5 MG TABLET PO SCH ×2 (21:21→21:30)
[2017-04-22] MEDS: DOCUSATE SODIUM 100 MG CAPSULE (FP) PO SCH (21:21)
[2017-04-22] MEDS: SENNOSIDES 8.8 MG/5 ML BULK BOTTLE PO SCH (21:22)
[2017-04-22] MEDS ORDERED: MIRTAZAPINE 15 MG TABLET (FP) PO SCH (22:00)
[2017-04-23 08:47] LABS: BASO % 0.3 % (0-2.0); EOS % 1.4 % (0-4.5); HEMATOCRIT 24.6 % (35.4-49); HEMOGLOBIN 7.9 GM/dL (11.7-16.9); LYMPH % 6.8 % (8-40); MCH 30.8 pg (25.7-33.7); MCHC 32.2 g/dl (32.0-35.9); MEAN CELL VOLUME 95.6 fl (80-96); MEAN PLT VOLUME 8.8 fl (7.5-11.1); MONO % 11.1 % (3.8-10.2); NEUT % 80.4 % (42.8-82.8); PLATELET COUNT 303 K/MM3 (134-434); RBC 2.58 M/mm3 (4.00-5.60); RDW 17.2 % (11.9-15.9); WHITE BLOOD COUNT 11.3 K/mm3 (4.0-10.0)
[2017-04-23 09:23] LABS: CHLORIDE 99 mmol/L (98-107); SODIUM 140 mmol/L (136-145)
[2017-04-23 09:28] LABS: ANION GAP 11 (8-16); BLOOD UREA NITROGEN 24 mg/dL (7-18); CALCIUM 8.4 mg/dL (8.5-10.1); CO2 30 mmol/L (21-32); GLUCOSE,RANDOM 158 mg/dL (74-106)
[2017-04-23] MEDS ORDERED: PT OWN MED DRAWER 7, Y5N ONE ×4 (09:47→22:29)
[2017-04-23] MEDS: ENOXAPARIN NA (PORCINE) 30 MG/0.3 ML DISP.SYRIN SQ SCH (09:55)
[2017-04-23] MEDS: amLODIPine BESYLATE 10 MG TABLET (FP) PO SCH (09:55)
[2017-04-23] MEDS: FERROUS SO4 325 MG TABLET (FP) PO SCH ×2 (09:55→21:30)
[2017-04-23] MEDS: OLANZapine 5 MG TABLET PO SCH (09:56)
[2017-04-23] MEDS: TIMOLOL 0.5% OPHTHALMIC SOL 5 ML BOTTLE OU SCH ×2 (09:57→21:30)
[2017-04-23] MEDS: DORZOLAMIDE 2% HCL OPHTHALMIC SOLUTION 10 ML BOTTLE OU SCH ×2 (09:57→21:30)
[2017-04-23] MEDS: BRIMONIDINE TARTRATE 0.2% OPHTHALMIC 5 ML BOTTLE OU SCH (09:58)
[2017-04-23] MEDS: BACITRACIN 15 GM TUBE TOPICAL OINTMENT TP SCH ×2 (09:59→22:17)
[2017-04-23] MEDS ORDERED: SODIUM PHOSPHATE/NA BIPHOS 133 ML ENEMA PR ONE (10:13)
--- NOTE | 2017-04-23 10:26 | PN ---
Progress Note, Physician Chief Complaint: confused still anemia worsened constipated - Current Medication List Current Medications: Active Medications Amlodipine Besylate (Norvasc -) 10 mg PO DAILY [facility] Last Admin: 04/23/17 09:55 Dose: 10 mg Bacitracin (Bacitracin -) 1 applic TP BID [facility] Last Admin: 04/23/17 09:59 Dose: 1 applic Brimonidine Tartrate (Alphagan 0.2% -) 1 drop OU DAILY [facility] Last Admin: 04/23/17 09:58 Dose: 1 drop Docusate Sodium (Colace -) 300 mg PO [facility] Last Admin: 04/22/17 21:21 Dose: 300 mg Dorzolamide HCl (Trusopt 2%) 1 drop OU BID [facility] Last Admin: 04/23/17 09:57 Dose: 1 drop Enoxaparin Sodium (Lovenox -) 30 mg SQ DAILY [facility] Last Admin: 04/23/17 09:55 Dose: 30 mg Ferrous Sulfate (Feosol -) 325 mg PO BID [facility] Last Admin: 04/23/17 09:55 Dose: 325 mg Latanoprost (Xalatan 0.005% Eye Drops -) 1 drop OU DAILY@1800 [facility] Last Admin: 04/22/17 17:46 Dose: 1 drop Olanzapine (Zyprexa -) 5 mg PO BID [facility] Last Admin: 04/23/17 09:56 Dose: 5 mg Oxycodone HCl (Roxicodone -) 5 mg PO Q6H PRN PRN Reason: PAIN Senna (Senna Oral Solution -) 8.8 mg PO [facility] Last Admin: 04/22/17 21:22 Dose: 8.8 mg Sodium Phosphate (Fleet Adult Rectal Enema -) 133 ml DE ONCE ONE Stop: 04/23/17 10:14 Timolol Maleate (Timoptic 0.5%) 1 drop OU BID [facility] Last Admin: 04/23/17 09:57 Dose: 1 drop - Objective Vital Signs: Vital Signs Temperature 99.5 F 04/23/17 06:00 Pulse Rate 81 04/23/17 06:00 Respiratory Rate 21 04/23/17 06:00 Blood Pressure 123/66 04/23/17 06:00 O2 Sat by Pulse Oximetry (%) 97 04/22/17 22:00 Constitutional: Yes: Mild Distress Eyes: Yes: WNL HENT: Yes: WNL Neck: Yes: WNL Cardiovascular: Yes: WNL Respiratory: Yes: WNL Gastrointestinal: Yes: WNL Genitourinary: Yes: [place] Present Musculoskeletal: Yes: Muscle Weakness Extremities: Yes: Other Edema: No Peripheral Pulses WNL: Yes Integumentary: Yes: Bruising Wound/Incision: Yes: Dressing Dry and Intact Neurological: Yes: Confusion, Unsteady Gait, Weakness ...Motor Strength: LLE, RLE Psychiatric: Yes: Other Labs: CBC, BMP 04/23/17 05:24 04/23/17 05:24 INR, PTT INR 1.25 (0.82-1.09) H 04/15/17 10:52 Problem List - Problems (1) Inability to ambulate due to hip Code(s): R26.2 - DIFFICULTY IN WALKING, NOT ELSEWHERE CLASSIFIED (2) Status post hip surgery Code(s): Z98.890 - OTHER SPECIFIED POSTPROCEDURAL STATES (3) Surgical complication Code(s): T81.9XXA - UNSPECIFIED COMPLICATION OF PROCEDURE, INITIAL ENCOUNTER Qualifiers: Surgical complication system/body Area: musculoskeletal system Bone affected by surgical complication: femur Laterality: right (4) B12 deficiency Code(s): E53.8 - DEFICIENCY OF OTHER SPECIFIED B GROUP VITAMINS (5) Dementia Code(s): F03.90 - UNSPECIFIED DEMENTIA WITHOUT BEHAVIORAL DISTURBANCE Qualifiers: Dementia type: Alzheimer's disease Dementia behavioral disturbance: with behavioral disturbance (6) Anemia Code(s): D64.9 - ANEMIA, UNSPECIFIED Qualifiers: Other causes of anemia: chronic disease, other (7) Dementia Code(s): F03.90 - UNSPECIFIED DEMENTIA WITHOUT BEHAVIORAL DISTURBANCE Qualifiers: Dementia type: Alzheimer's disease Dementia behavioral disturbance: with behavioral disturbance Assessment/Plan RESTRAINTS FOR PATIENT SAFETY ZYPREXA 5MG BID REMERON QHS ENEMA PER RECTAL DVT PROHYLAXIS HOWEVER ANEMIA WORKUP IN PROGRESS FEVER FROM VENOFER IV WILL RECULTURE ID F/U
--- NOTE | 2017-04-23 11:10 | PN ---
Progress Note, Physician History of Present Illness: Chart reviewed. Events noted. An 86 yom admitted with orthopedic issues. Noted to be anemic. Hgb on admission was 9g/dl, normocytic, normochronic anemia with high RDW. Had Orthopedic surgery on 04/15/17 and received blood transfusion (2u) for hgb 6.9 on 04/16/17. No overt GI bleeding documented during this stay. Formed , soft brown stool in rectal vault on exam (hemoccult sent). No diarrhea, melena , hematochezia, or hematemesis reported. No known GI work up for anemia in the past. No events overnight Clinically the same - Current Medication List Current Medications: Active Medications Amlodipine Besylate (Norvasc -) 10 mg PO DAILY [facility] BEDS AT [facility] Last Admin: 04/23/17 09:55 Dose: 10 mg Bacitracin (Bacitracin -) 1 applic TP BID [facility]S [facility]CLUDE 234 BEDS AT [facility] Last Admin: 04/23/17 09:59 Dose: 1 applic Brimonidine Tartrate (Alphagan 0.2% -) 1 drop OU DAILY COUNTS [facility]CLUDE 234 BEDS AT [facility] Last Admin: 04/23/17 09:58 Dose: 1 drop Docusate Sodium (Colace -) 300 mg PO [facility] Last Admin: 04/22/17 21:21 Dose: 300 mg Dorzolamide HCl (Trusopt 2%) 1 drop OU BID COUNTS INCLUDE 234 BEDS AT [facility] Last Admin: 04/23/17 09:57 Dose: 1 drop Enoxaparin Sodium (Lovenox -) 30 mg SQ DAILY COUNTS [facility]CLUDE 234 BEDS AT [facility] Last Admin: 04/23/17 09:55 Dose: 30 mg Ferrous Sulfate (Feosol -) 325 mg PO BID COUNTS [facility]CLUDE 234 BEDS AT [facility] Last Admin: 04/23/17 09:55 Dose: 325 mg Latanoprost (Xalatan 0.005% Eye Drops -) 1 drop OU DAILY@1800 COUNTS [facility]CLUDE 234 BEDS AT [facility] Last Admin: 04/22/17 17:46 Dose: 1 drop Methylnaltrexone Bandana (Relistor -) 12 mg SQ DAILY COUNTS INCLUDE 234 BEDS AT [facility] Olanzapine (Zyprexa -) 5 mg PO BID COUNTS [facility]CLUDE 234 BEDS AT [facility] Last Admin: 04/23/17 09:56 Dose: 5 mg Oxycodone HCl (Roxicodone -) 5 mg PO Q6H PRN PRN Reason: PAIN Senna (Senna Oral Solution -) 8.8 mg PO HS COUNTS [facility]CLUDE 234 BEDS AT [facility] Last Admin: 04/22/17 21:22 Dose: 8.8 mg Timolol Maleate (Timoptic 0.5%) 1 drop OU BID [facility] Last Admin: 04/23/17 09:57 Dose: 1 drop - Objective Vital Signs: Vital Signs Temperature 99.5 F 04/23/17 06:00 Pulse Rate 81 04/23/17 06:00 Respiratory Rate 21 04/23/17 06:00 Blood Pressure 123/66 04/23/17 06:00 O2 Sat by Pulse Oximetry (%) 97 04/22/17 22:00 Constitutional: Yes: No Distress, Calm Eyes: Yes: Conjunctiva Clear HENT: Yes: Atraumatic Neck: Yes: Supple Cardiovascular: Yes: Regular Rate and Rhythm Respiratory: Yes: Regular Gastrointestinal: Yes: Normal Bowel Sounds, Soft. No: Melena, Rectal Bleeding, Tenderness, Vomiting Neurological: Yes: Confusion Labs: CBC, BMP 04/23/17 05:24 04/23/17 05:24 INR, PTT INR 1.25 (0.82-1.09) H 04/15/17 10:52 Laboratory Results - last 24 hr 04/15/17 04/22/17 04/23/17 18:45 16:30 05:24 WBC RBC Hgb Hct MCV MCH MCHC RDW Plt Count MPV Neutrophils % Lymphocytes % Monocytes % Eosinophils % Basophils % Sodium 140 Potassium 4.0 Chloride 99 Carbon Dioxide 30 Anion Gap 11 BUN 24 H Creatinine 1.0 Random Glucose 158 H Calcium 8.4 L Magnesium 2.0 D Ferritin Vitamin B12 1547 H D Serum Folate 9 Crossmatch See Detail 04/23/17 04/23/17 05:24 05:24 WBC 11.3 H RBC 2.58 L Hgb 7.9 L Hct 24.6 L MCV 95.6 MCH 30.8 MCHC 32.2 RDW 17.2 H Plt Count 303 MPV 8.8 Neutrophils % 80.4 Lymphocytes % 6.8 L D Monocytes % 11.1 H Eosinophils % 1.4 Basophils % 0.3 Sodium Potassium Chloride Carbon Dioxide Anion Gap BUN Creatinine Random Glucose Calcium Magnesium Ferritin 1414.510 H Vitamin B12 Serum Folate Crossmatch Problem List - Problems (1) Anemia Code(s): D64.9 - ANEMIA, UNSPECIFIED Qualifiers: Other causes of anemia: chronic disease, other (2) Constipation Code(s): K59.00 - CONSTIPATION, UNSPECIFIED (3) Dementia Code(s): F03.90 - UNSPECIFIED DEMENTIA WITHOUT BEHAVIORAL DISTURBANCE Qualifiers: Dementia type: Alzheimer's disease Dementia behavioral disturbance: with behavioral disturbance (4) Status post hip surgery Code(s): Z98.890 - OTHER SPECIFIED POSTPROCEDURAL STATES (5) Altered mental status Code(s): R41.82 - ALTERED MENTAL STATUS, UNSPECIFIED Qualifiers: Altered mental status type: delirium Qualified Code(s): R41.0 - Disorientation, unspecified Assessment/Plan An 86 yom with normocytic, normochromic anemia, which is likely multifatorial, including recent surgery-related blood loss. No signs, or symptoms to suggest recent, or ongoing GI bleed. Chronic gastritis, esophagitis and duodenitis are possible in this frail patient. Agree with PPI, and Iron. Add Miralax bid to stool softeners already prescribed as there is a large amount of stool in the rectum and DEBBIE. Stool for occult blood sent to the lab. Will follow will follow stool results, Hgb
--- NOTE | 2017-04-23 12:59 | PN ---
Progress Note, Physician History of Present Illness: Awake, confused Post op removal of R hip orthopedic hardware and conversion to hemiarthroplasty Now with fever Pt offers no complaints - Current Medication List Current Medications: Active Medications Amlodipine Besylate (Norvasc -) 10 mg PO DAILY [facility] Last Admin: 04/23/17 09:55 Dose: 10 mg Bacitracin (Bacitracin -) 1 applic TP BID [facility] Last Admin: 04/23/17 09:59 Dose: 1 applic Brimonidine Tartrate (Alphagan 0.2% -) 1 drop OU DAILY [facility] Last Admin: 04/23/17 09:58 Dose: 1 drop Docusate Sodium (Colace -) 300 mg PO [facility] Last Admin: 04/22/17 21:21 Dose: 300 mg Dorzolamide HCl (Trusopt 2%) 1 drop OU BID [facility] Last Admin: 04/23/17 09:57 Dose: 1 drop Enoxaparin Sodium (Lovenox -) 30 mg SQ DAILY [facility] Last Admin: 04/23/17 09:55 Dose: 30 mg Ferrous Sulfate (Feosol -) 325 mg PO BID [facility] Last Admin: 04/23/17 09:55 Dose: 325 mg Latanoprost (Xalatan 0.005% Eye Drops -) 1 drop OU DAILY@1800 [facility] Last Admin: 04/22/17 17:46 Dose: 1 drop Methylnaltrexone [place] (Relistor -) 12 mg SQ DAILY [facility] Olanzapine (Zyprexa -) 5 mg PO BID [facility] Last Admin: 04/23/17 09:56 Dose: 5 mg Oxycodone HCl (Roxicodone -) 5 mg PO Q6H PRN PRN Reason: PAIN Senna (Senna Oral Solution -) 8.8 mg PO HS [facility] Last Admin: 04/22/17 21:22 Dose: 8.8 mg Timolol Maleate (Timoptic 0.5%) 1 drop OU BID [facility] Last Admin: 04/23/17 09:57 Dose: 1 drop - Objective Vital Signs: Vital Signs Temperature 100 F H 04/23/17 09:00 Pulse Rate 88 04/23/17 09:00 Respiratory Rate 18 04/23/17 09:00 Blood Pressure 142/85 04/23/17 09:00 O2 Sat by Pulse Oximetry (%) 96 04/23/17 09:00 Constitutional: Yes: No Distress Eyes: Yes: Conjunctiva Clear Cardiovascular: Yes: Regular Rate and Rhythm, S1, S2 Respiratory: Yes: Diminished, Other (poor inspiratory effort) Gastrointestinal: Yes: Normal Bowel Sounds, Soft. No: Tenderness Extremities: Yes: Other (R hip wound no erythema) Labs: CBC, BMP 04/23/17 05:24 04/23/17 05:24 INR, PTT INR 1.25 (0.82-1.09) H 04/15/17 10:52 Assessment/Plan S/P removal of orthopedic hardware and conversion ro hemiarthroplasty Fever ? source Repeat cultures off antibiotics CXR
[2017-04-23] MEDS: Methylnaltrexone Bromide 12 MG/0.6 ML KIT SQ SCH (13:08)
[2017-04-23] MEDS: oxyCODONE HCL 5 MG TABLET PO PRN (13:45)
[2017-04-23] MEDS: LATANOPROST 0.005% OPHTH SOLN 2.5ML BOTTLE OU SCH (17:13)
[2017-04-23] MEDS ORDERED: ACETAMINOPHEN 325 MG TABLET (FP) PO ONE (19:00)
[2017-04-23] MEDS: SENNOSIDES 8.8 MG/5 ML BULK BOTTLE PO SCH (22:00)
[2017-04-23] MEDS: DOCUSATE SODIUM 100 MG CAPSULE (FP) PO SCH (22:00)
--- NOTE | 2017-04-24 08:00 | PN ---
Progress Note, Physician History of Present Illness: No events overnight Clinically the same heme negative stools - Current Medication List Current Medications: Active Medications Amlodipine Besylate (Norvasc -) 10 mg PO DAILY [facility] Last Admin: 04/23/17 09:55 Dose: 10 mg Bacitracin (Bacitracin -) 1 applic TP BID [facility] Last Admin: 04/23/17 22:17 Dose: 1 applic Brimonidine Tartrate (Alphagan 0.2% -) 1 drop OU DAILY [facility] Last Admin: 04/23/17 09:58 Dose: 1 drop Docusate Sodium (Colace -) 300 mg PO HS [facility] Last Admin: 04/23/17 22:00 Dose: Not Given Dorzolamide HCl (Trusopt 2%) 1 drop OU BID [facility] Last Admin: 04/23/17 21:30 Dose: 1 drop Enoxaparin Sodium (Lovenox -) 30 mg SQ DAILY [facility] Last Admin: 04/23/17 09:55 Dose: 30 mg Ferrous Sulfate (Feosol -) 325 mg PO BID [facility] Last Admin: 04/23/17 21:30 Dose: 325 mg Latanoprost (Xalatan 0.005% Eye Drops -) 1 drop OU DAILY@1800 [facility] Last Admin: 04/23/17 17:13 Dose: 1 drop Methylnaltrexone [place] (Relistor -) 12 mg SQ DAILY [facility] Last Admin: 04/23/17 13:08 Dose: 12 mg Olanzapine (Zyprexa -) 5 mg PO BID [facility] Last Admin: 04/23/17 09:56 Dose: 5 mg Oxycodone HCl (Roxicodone -) 5 mg PO Q6H PRN PRN Reason: PAIN Last Admin: 04/23/17 13:45 Dose: 5 mg Senna (Senna Oral Solution -) 8.8 mg PO HS [facility] Last Admin: 04/23/17 22:00 Dose: 8.8 mg Timolol Maleate (Timoptic 0.5%) 1 drop OU BID [facility] Last Admin: 04/23/17 21:30 Dose: 1 drop - Objective Vital Signs: Vital Signs Temperature 100.3 F H 04/24/17 05:47 Pulse Rate 92 H 04/24/17 05:47 Respiratory Rate 18 04/24/17 05:47 Blood Pressure 143/82 04/24/17 05:47 O2 Sat by Pulse Oximetry (%) 96 01/10/18 21:00 Constitutional: Yes: No Distress Eyes: Yes: Conjunctiva Clear HENT: Yes: Atraumatic Neck: Yes: Supple Cardiovascular: Yes: Regular Rate and Rhythm Respiratory: Yes: Regular Gastrointestinal: Yes: Normal Bowel Sounds, Soft. No: Melena, Rectal Bleeding, Tenderness, Tenderness, Rebound, Vomiting Neurological: Yes: Confusion Labs: CBC, BMP 04/23/17 05:24 04/23/17 05:24 INR, PTT INR 1.25 (0.82-1.09) H 04/15/17 10:52 Abnormal Lab Results 04/15/17 04/23/17 04/23/17 18:45 05:24 05:24 WBC RBC Hgb Hct RDW Lymphocytes % Monocytes % BUN 24 H Random Glucose 158 H Calcium 8.4 L Ferritin 1414.510 H Crossmatch See Detail 04/23/17 05:24 WBC 11.3 H RBC 2.58 L Hgb 7.9 L Hct 24.6 L RDW 17.2 H Lymphocytes % 6.8 L D Monocytes % 11.1 H BUN Random Glucose Calcium Ferritin Crossmatch Problem List - Problems (1) Anemia Code(s): D64.9 - ANEMIA, UNSPECIFIED Qualifiers: Other causes of anemia: chronic disease, other (2) Constipation Code(s): K59.00 - CONSTIPATION, UNSPECIFIED (3) Dementia Code(s): F03.90 - UNSPECIFIED DEMENTIA WITHOUT BEHAVIORAL DISTURBANCE Qualifiers: Dementia type: Alzheimer's disease Dementia behavioral disturbance: with behavioral disturbance (4) Status post hip surgery Code(s): Z98.890 - OTHER SPECIFIED POSTPROCEDURAL STATES (5) Altered mental status Code(s): R41.82 - ALTERED MENTAL STATUS, UNSPECIFIED Qualifiers: Altered mental status type: delirium Qualified Code(s): R41.0 - Disorientation, unspecified Assessment/Plan Multifactorial anemia Heme negative stools Continue current care, Avoid NSAIDs Recommend conservative management unless active GI bleed.
[2017-04-24 08:11] LABS: HEMOGLOBIN 8.7 GM/dL (11.7-16.9); MCH 30.9 pg (25.7-33.7); MCHC 32.1 g/dl (32.0-35.9); MEAN CELL VOLUME 96.3 fl (80-96); MEAN PLT VOLUME 9.1 fl (7.5-11.1); PLATELET COUNT 335 K/MM3 (134-434); RDW 17.7 % (11.9-15.9); WHITE BLOOD COUNT 9.3 K/mm3 (4.0-10.0)
[2017-04-24 08:49] LABS: CHLORIDE 99 mmol/L (98-107); POTASSIUM 4.3 mmol/L (3.5-5.1); SODIUM 138 mmol/L (136-145)
[2017-04-24 09:18] LABS: ANION GAP 10 (8-16); BLOOD UREA NITROGEN 26 mg/dL (7-18); CALCIUM 7.8 mg/dL (8.5-10.1); CO2 29 mmol/L (21-32); GLUCOSE,RANDOM 171 mg/dL (74-106)
--- NOTE | 2017-04-24 10:57 | PN ---
Progress Note (short form) - Note Progress Note: ADDENDUM : STAGE 3 SACRAL ULCER, VASCULAR SURGERY EVAL Problem List - Problems (1) Inability to ambulate due to hip Code(s): R26.2 - DIFFICULTY IN WALKING, NOT ELSEWHERE CLASSIFIED (2) Status post hip surgery Code(s): Z98.890 - OTHER SPECIFIED POSTPROCEDURAL STATES (3) Surgical complication Code(s): T81.9XXA - UNSPECIFIED COMPLICATION OF PROCEDURE, INITIAL ENCOUNTER Qualifiers: Surgical complication system/body Area: musculoskeletal system Bone affected by surgical complication: femur Laterality: right (4) B12 deficiency Code(s): E53.8 - DEFICIENCY OF OTHER SPECIFIED B GROUP VITAMINS (5) Dementia Code(s): F03.90 - UNSPECIFIED DEMENTIA WITHOUT BEHAVIORAL DISTURBANCE Qualifiers: Dementia type: Alzheimer's disease Dementia behavioral disturbance: with behavioral disturbance (6) Anemia Code(s): D64.9 - ANEMIA, UNSPECIFIED Qualifiers: Other causes of anemia: chronic disease, other (7) Dementia Code(s): F03.90 - UNSPECIFIED DEMENTIA WITHOUT BEHAVIORAL DISTURBANCE Qualifiers: Dementia type: Alzheimer's disease Dementia behavioral disturbance: with behavioral disturbance
--- NOTE | 2017-04-24 11:00 | PN ---
Progress Note (short form) - Note Progress Note: ADDENDUM: TOXIC METABOLIC ENCEPHALOPATHY WITH ALTERED MENTAL STATUS Problem List - Problems (1) Inability to ambulate due to hip Code(s): R26.2 - DIFFICULTY IN WALKING, NOT ELSEWHERE CLASSIFIED (2) Status post hip surgery Code(s): Z98.890 - OTHER SPECIFIED POSTPROCEDURAL STATES (3) Surgical complication Code(s): T81.9XXA - UNSPECIFIED COMPLICATION OF PROCEDURE, INITIAL ENCOUNTER Qualifiers: Surgical complication system/body Area: musculoskeletal system Bone affected by surgical complication: femur Laterality: right (4) B12 deficiency Code(s): E53.8 - DEFICIENCY OF OTHER SPECIFIED B GROUP VITAMINS (5) Dementia Code(s): F03.90 - UNSPECIFIED DEMENTIA WITHOUT BEHAVIORAL DISTURBANCE Qualifiers: Dementia type: Alzheimer's disease Dementia behavioral disturbance: with behavioral disturbance (6) Anemia Code(s): D64.9 - ANEMIA, UNSPECIFIED Qualifiers: Other causes of anemia: chronic disease, other (7) Dementia Code(s): F03.90 - UNSPECIFIED DEMENTIA WITHOUT BEHAVIORAL DISTURBANCE Qualifiers: Dementia type: Alzheimer's disease Dementia behavioral disturbance: with behavioral disturbance
[2017-04-24] MEDS: oxyCODONE HCL 5 MG TABLET PO PRN (12:05)
[2017-04-24] MEDS: amLODIPine BESYLATE 10 MG TABLET (FP) PO SCH (12:07)
[2017-04-24] MEDS: FERROUS SO4 325 MG TABLET (FP) PO SCH ×2 (12:07→22:45)
[2017-04-24] MEDS: DORZOLAMIDE 2% HCL OPHTHALMIC SOLUTION 10 ML BOTTLE OU SCH ×2 (12:08→22:47)
[2017-04-24] MEDS: TIMOLOL 0.5% OPHTHALMIC SOL 5 ML BOTTLE OU SCH ×2 (12:08→22:47)
[2017-04-24] MEDS: ENOXAPARIN NA (PORCINE) 30 MG/0.3 ML DISP.SYRIN SQ SCH (12:09)
[2017-04-24] MEDS: BACITRACIN 15 GM TUBE TOPICAL OINTMENT TP SCH ×2 (12:09→22:45)
[2017-04-24] MEDS: BRIMONIDINE TARTRATE 0.2% OPHTHALMIC 5 ML BOTTLE OU SCH (12:09)
--- NOTE | 2017-04-24 13:13 | PN ---
Progress Note, Physician History of Present Illness: Awake, confused Post op removal of R hip orthopedic hardware and conversion to hemiarthroplasty Febrile Repeat cultures obtained CXR no new infiltrate - Current Medication List Current Medications: Active Medications Amlodipine Besylate (Norvasc -) 10 mg PO DAILY [facility] Last Admin: 04/24/17 12:07 Dose: 10 mg Bacitracin (Bacitracin -) 1 applic TP BID [facility] Last Admin: 04/24/17 12:09 Dose: 1 applic Brimonidine Tartrate (Alphagan 0.2% -) 1 drop OU DAILY [facility] Last Admin: 04/24/17 12:09 Dose: 1 drop Docusate Sodium (Colace -) 300 mg PO HS [facility] Last Admin: 04/23/17 22:00 Dose: Not Given Dorzolamide HCl (Trusopt 2%) 1 drop OU BID [facility] Last Admin: 04/24/17 12:08 Dose: 1 drop Enoxaparin Sodium (Lovenox -) 30 mg SQ DAILY [facility] Last Admin: 04/24/17 12:09 Dose: 30 mg Ferrous Sulfate (Feosol -) 325 mg PO BID [facility] Last Admin: 04/24/17 12:07 Dose: 325 mg Latanoprost (Xalatan 0.005% Eye Drops -) 1 drop OU DAILY@1800 [facility] Last Admin: 04/23/17 17:13 Dose: 1 drop Methylnaltrexone [place] (Relistor -) 12 mg SQ DAILY [facility] Last Admin: 04/23/17 13:08 Dose: 12 mg Olanzapine (Zyprexa -) 5 mg PO BID [facility] Last Admin: 04/23/17 09:56 Dose: 5 mg Oxycodone HCl (Roxicodone -) 5 mg PO Q6H PRN PRN Reason: PAIN Last Admin: 04/24/17 12:05 Dose: 5 mg Senna (Senna Oral Solution -) 8.8 mg PO HS [facility] Last Admin: 04/23/17 22:00 Dose: 8.8 mg Timolol Maleate (Timoptic 0.5%) 1 drop OU BID [facility] Last Admin: 04/24/17 12:08 Dose: 1 drop - Objective Vital Signs: Vital Signs Temperature 100.3 F H 04/24/17 05:47 Pulse Rate 92 H 04/24/17 05:47 Respiratory Rate 18 04/24/17 05:47 Blood Pressure 143/82 04/24/17 05:47 O2 Sat by Pulse Oximetry (%) 96 04/24/17 09:00 Constitutional: Yes: No Distress Eyes: Yes: Conjunctiva Clear Cardiovascular: Yes: Regular Rate and Rhythm, S1, S2 Respiratory: Yes: Diminished Gastrointestinal: Yes: Normal Bowel Sounds, Soft. No: Tenderness Extremities: Yes: Other (R hip wound no erythema + serous drainage on dressing ) Integumentary: Yes: Other (+ sacral pressure wound not infected) Labs: CBC, BMP 04/24/17 05:22 04/24/17 05:22 INR, PTT INR 1.25 (0.82-1.09) H 04/15/17 10:52 Assessment/Plan S/P removal of orthopedic hardware and conversion ro hemiarthroplasty Fever Repeat cultures obtained Observe off antibiotics
--- NOTE | 2017-04-24 13:23 | PROC ---
Procedure Note Procedure: Last Vital Signs Temp Pulse Resp BP Pulse Ox 100.3 F H 92 H 18 143/82 96 04/24/17 05:47 04/24/17 05:47 04/24/17 05:47 04/24/17 05:47 04/24/17 09:00 CBC, BMP 04/24/17 05:22 04/24/17 05:22 Current Medications Generic Name Dose Route Start Last Admin Trade Name Freq PRN Reason Stop Dose Admin Amlodipine Besylate 10 mg 04/16/17 10:00 04/24/17 12:07 Norvasc - PO 10 mg DAILY SHANDA Administration Bacitracin 1 applic 04/17/17 22:00 04/24/17 12:09 Bacitracin - TP 1 applic BID SHANDA Administration Brimonidine Tartrate 1 drop 04/16/17 10:00 04/24/17 12:09 Alphagan 0.2% - OU 1 drop DAILY SHANDA Administration Docusate Sodium 300 mg 04/19/17 22:00 04/23/17 22:00 Colace - PO Not Given HS SHANDA Dorzolamide HCl 1 drop 04/15/17 22:00 04/24/17 12:08 Trusopt 2% OU 1 drop BID [facility]ANDA Administration Enoxaparin Sodium 30 mg 04/16/17 10:00 04/24/17 12:09 Lovenox - SQ 30 mg DAILY [facility] Administration Ferrous Sulfate 325 mg 04/19/17 22:00 04/24/17 12:07 Feosol - PO 325 mg BID [facility]DA Administration Latanoprost 1 drop 04/15/17 18:00 04/23/17 17:13 Xalatan 0.005% Eye Drops - OU 1 drop DAILY@1800 SHANDA Administration Methylnaltrexone [place] 12 mg 04/23/17 10:30 04/23/17 13:08 Relistor - SQ 12 mg DAILY [facility] Administration Olanzapine 5 mg 04/22/17 22:00 04/23/17 09:56 Zyprexa - PO 5 mg BID [facility] Administration Oxycodone HCl 5 mg 04/21/17 10:56 04/24/17 12:05 Roxicodone - PO 5 mg Q6H PRN Administration PAIN Senna 8.8 mg 04/21/17 22:00 04/23/17 22:00 Senna Oral Solution - PO 8.8 mg HS [facility] Administration Timolol Maleate 1 drop 04/15/17 22:00 04/24/17 12:08 Timoptic 0.5% OU 1 drop BID [facility] Administration
[2017-04-24] MEDS: Methylnaltrexone Bromide 12 MG/0.6 ML KIT SQ SCH (13:25)
[2017-04-24] MEDS: OLANZapine 5 MG TABLET PO SCH ×2 (13:25→22:45)
[2017-04-24] MEDS: LATANOPROST 0.005% OPHTH SOLN 2.5ML BOTTLE OU SCH (17:31)
--- NOTE | 2017-04-24 17:33 | PN ---
Progress Note (short form) - Note Progress Note: Pt seen and examined. remains confused/agitated. ROS unobtainable O/E: In restraints, agitated NCAT CTA b/l Abd soft LE:no edema Last Vital Signs Temp Pulse Resp BP Pulse Ox 99.2 F 83 19 146/73 97 04/22/17 05:40 04/22/17 05:40 04/22/17 05:40 04/22/17 05:40 04/21/17 21:00 CBC, BMP 04/21/17 07:00 04/21/17 07:00 Current Medications Generic Name Dose Route Start Last Admin Trade Name Freq PRN Reason Stop Dose Admin Amlodipine Besylate 10 mg 04/16/17 10:00 04/22/17 09:39 Norvasc - PO 10 mg DAILY [facility] Administration Bacitracin 1 applic 04/17/17 22:00 04/22/17 09:42 Bacitracin - TP 1 applic BID [facility] Administration Brimonidine Tartrate 1 drop 04/16/17 10:00 04/22/17 09:39 Alphagan 0.2% - OU 1 drop DAILY [facility] Administration Docusate Sodium 300 mg 04/19/17 22:00 04/21/17 22:07 Colace - PO 300 mg HS [facility] Administration Dorzolamide HCl 1 drop 04/15/17 22:00 04/22/17 09:41 Trusopt 2% OU 1 drop BID [facility] Administration Enoxaparin Sodium 30 mg 04/16/17 10:00 04/22/17 09:39 Lovenox - SQ 30 mg DAILY [facility] Administration Ferrous Sulfate 325 mg 04/19/17 22:00 04/22/17 09:39 Feosol - PO 325 mg BID [facility] Administration Latanoprost 1 drop 04/15/17 18:00 04/20/17 17:15 Xalatan 0.005% Eye Drops - OU Not Given DAILY@1800 [facility]DA Olanzapine 5 mg 04/18/17 22:00 04/21/17 21:32 Zyprexa - PO 5 mg HS [facility] Administration Oxycodone HCl 5 mg 04/21/17 10:56 Roxicodone - PO Q6H PRN PAIN Senna 8.8 mg 04/21/17 22:00 04/21/17 21:32 Senna Oral Solution - PO 8.8 mg HS [facility] Administration Timolol Maleate 1 drop 04/15/17 22:00 04/22/17 09:40 Timoptic 0.5% OU 1 drop BID [facility] Administration Anemia of chronic disease hemeoccult blood. await SPEP GI noted reviewed will transfuse for hgb <8 or if any evidence of active bleeding. remains confused
[2017-04-24] MEDS ORDERED: PT OWN MED DRAWER 7, Y5N ONE (22:13)
[2017-04-24] MEDS: DOCUSATE SODIUM 100 MG CAPSULE (FP) PO SCH (22:46)
[2017-04-24] MEDS: SENNOSIDES 8.8 MG/5 ML BULK BOTTLE PO SCH (22:46)
--- NOTE | 2017-04-25 08:46 | PN ---
Progress Note (short form) - Note Progress Note: Ortho Pt seen and examined s/p right conversion hip jefferson Selected Entries 04/25/17 06:00 Temperature 98.1 F Pulse Rate 84 Respiratory 20 Rate Blood Pressure 122/60 Laboratory Tests 04/24/17 05:22 WBC 9.3 Hgb 8.7 L D Hct 27.0 L Plt Count 335 dressing c/d/i, calf soft, nt a/p PT if able dvt ppx pain control d/c planning
--- NOTE | 2017-04-25 11:18 | PN ---
Progress Note, Physician History of Present Illness: No events overnight Clinically the same heme negative stools - Current Medication List Current Medications: Active Medications Amlodipine Besylate (Norvasc -) 10 mg PO DAILY [facility] Last Admin: 04/24/17 12:07 Dose: 10 mg Bacitracin (Bacitracin -) 1 applic TP BID [facility] Last Admin: 04/24/17 22:45 Dose: 1 applic Brimonidine Tartrate (Alphagan 0.2% -) 1 drop OU DAILY [facility] Last Admin: 04/24/17 12:09 Dose: 1 drop Docusate Sodium (Colace -) 300 mg PO HS [facility] Last Admin: 04/24/17 22:46 Dose: Not Given Dorzolamide HCl (Trusopt 2%) 1 drop OU BID [facility] Last Admin: 04/24/17 22:47 Dose: 1 drop Enoxaparin Sodium (Lovenox -) 30 mg SQ DAILY [facility] Last Admin: 04/24/17 12:09 Dose: 30 mg Ferrous Sulfate (Feosol -) 325 mg PO BID [facility] Last Admin: 04/24/17 22:45 Dose: 325 mg Latanoprost (Xalatan 0.005% Eye Drops -) 1 drop OU DAILY@1800 [facility] Last Admin: 04/24/17 17:31 Dose: 1 drop Methylnaltrexone [place] (Relistor -) 12 mg SQ DAILY [facility] Last Admin: 04/24/17 13:25 Dose: 12 mg Olanzapine (Zyprexa -) 5 mg PO BID [facility] Last Admin: 04/24/17 22:45 Dose: 5 mg Oxycodone HCl (Roxicodone -) 5 mg PO Q6H PRN PRN Reason: PAIN Last Admin: 04/24/17 12:05 Dose: 5 mg Senna (Senna Oral Solution -) 8.8 mg PO HS [facility] Last Admin: 04/24/17 22:46 Dose: 8.8 mg Timolol Maleate (Timoptic 0.5%) 1 drop OU BID [facility] Last Admin: 04/24/17 22:47 Dose: 1 drop - Objective Vital Signs: Vital Signs Temperature 98.1 F 04/25/17 06:00 Pulse Rate 84 04/25/17 06:00 Respiratory Rate 20 04/25/17 06:00 Blood Pressure 122/60 04/25/17 06:00 O2 Sat by Pulse Oximetry (%) 96 04/24/17 20:31 Constitutional: Yes: No Distress, Calm Gastrointestinal: Yes: Soft. No: Melena, Rectal Bleeding, Tenderness, Tenderness, Rebound, Vomiting Neurological: Yes: Alert Labs: CBC, BMP 04/24/17 05:22 04/24/17 05:22 INR, PTT INR 1.25 (0.82-1.09) H 04/15/17 10:52 Problem List - Problems (1) Anemia Code(s): D64.9 - ANEMIA, UNSPECIFIED Qualifiers: Other causes of anemia: chronic disease, other (2) Constipation Code(s): K59.00 - CONSTIPATION, UNSPECIFIED (3) Dementia Code(s): F03.90 - UNSPECIFIED DEMENTIA WITHOUT BEHAVIORAL DISTURBANCE Qualifiers: Dementia type: Alzheimer's disease Dementia behavioral disturbance: with behavioral disturbance (4) Status post hip surgery Code(s): Z98.890 - OTHER SPECIFIED POSTPROCEDURAL STATES (5) Altered mental status Code(s): R41.82 - ALTERED MENTAL STATUS, UNSPECIFIED Qualifiers: Altered mental status type: delirium Qualified Code(s): R41.0 - Disorientation, unspecified Assessment/Plan Multifactorial anemia Heme negative stools Continue current care, Avoid NSAIDs Recommend conservative management unless active GI bleed.
[2017-04-25] MEDS: BRIMONIDINE TARTRATE 0.2% OPHTHALMIC 5 ML BOTTLE OU SCH (11:25)
[2017-04-25] MEDS: amLODIPine BESYLATE 10 MG TABLET (FP) PO SCH (11:26)
[2017-04-25] MEDS: FERROUS SO4 325 MG TABLET (FP) PO SCH ×2 (11:26→23:30)
[2017-04-25] MEDS: TIMOLOL 0.5% OPHTHALMIC SOL 5 ML BOTTLE OU SCH ×2 (11:26→23:31)
[2017-04-25] MEDS: DORZOLAMIDE 2% HCL OPHTHALMIC SOLUTION 10 ML BOTTLE OU SCH ×2 (11:26→23:31)
[2017-04-25] MEDS: BACITRACIN 15 GM TUBE TOPICAL OINTMENT TP SCH ×2 (11:26→23:30)
[2017-04-25] MEDS: OLANZapine 5 MG TABLET PO SCH ×2 (11:26→23:30)
[2017-04-25] MEDS: ENOXAPARIN NA (PORCINE) 30 MG/0.3 ML DISP.SYRIN SQ SCH (11:26)
--- NOTE | 2017-04-25 12:22 | PN ---
Progress Note, Physician Chief Complaint: AWAKE CONFUSED RESTRAINTS REMOVED FAMILY BEDSIDE - Current Medication List Current Medications: Active Medications Amlodipine Besylate (Norvasc -) 10 mg PO DAILY [facility] Last Admin: 04/25/17 11:26 Dose: 10 mg Bacitracin (Bacitracin -) 1 applic TP BID [facility] Last Admin: 04/25/17 11:26 Dose: 1 applic Brimonidine Tartrate (Alphagan 0.2% -) 1 drop OU DAILY [facility] Last Admin: 04/25/17 11:25 Dose: 1 drop Docusate Sodium (Colace -) 300 mg PO HS [facility] Last Admin: 04/24/17 22:46 Dose: Not Given Dorzolamide HCl (Trusopt 2%) 1 drop OU BID [facility] Last Admin: 04/25/17 11:26 Dose: 1 drop Enoxaparin Sodium (Lovenox -) 30 mg SQ DAILY [facility] Last Admin: 04/25/17 11:26 Dose: 30 mg Ferrous Sulfate (Feosol -) 325 mg PO BID [facility] Last Admin: 04/25/17 11:26 Dose: 325 mg Latanoprost (Xalatan 0.005% Eye Drops -) 1 drop OU DAILY@1800 [facility] Last Admin: 04/24/17 17:31 Dose: 1 drop Methylnaltrexone [place] (Relistor -) 12 mg SQ DAILY [facility] Last Admin: 04/24/17 13:25 Dose: 12 mg Olanzapine (Zyprexa -) 5 mg PO BID [facility] Last Admin: 04/25/17 11:26 Dose: 5 mg Oxycodone HCl (Roxicodone -) 5 mg PO Q6H PRN PRN Reason: PAIN Last Admin: 04/24/17 12:05 Dose: 5 mg Senna (Senna Oral Solution -) 8.8 mg PO HS [facility] Last Admin: 04/24/17 22:46 Dose: 8.8 mg Timolol Maleate (Timoptic 0.5%) 1 drop OU BID [facility] Last Admin: 04/25/17 11:26 Dose: 1 drop - Objective Vital Signs: Vital Signs Temperature 98.1 F 04/25/17 06:00 Pulse Rate 84 04/25/17 06:00 Respiratory Rate 20 04/25/17 06:00 Blood Pressure 122/60 04/25/17 06:00 O2 Sat by Pulse Oximetry (%) 95 04/25/17 09:00 Constitutional: Yes: Mild Distress Eyes: Yes: WNL HENT: Yes: WNL Neck: Yes: WNL Cardiovascular: Yes: WNL Respiratory: Yes: WNL Gastrointestinal: Yes: WNL Genitourinary: Yes: Incontinence Musculoskeletal: Yes: Muscle Weakness Extremities: Yes: WNL Edema: No Peripheral Pulses WNL: Yes Integumentary: Yes: WNL Wound/Incision: Yes: Clean/Dry Neurological: Yes: Pre-Existing Deficit ...Motor Strength: LLE, RLE Psychiatric: Yes: Other Labs: CBC, BMP 04/24/17 05:22 04/24/17 05:22 INR, PTT INR 1.25 (0.82-1.09) H 04/15/17 10:52 Problem List - Problems (1) Inability to ambulate due to hip Code(s): R26.2 - DIFFICULTY IN WALKING, NOT ELSEWHERE CLASSIFIED (2) Status post hip surgery Code(s): Z98.890 - OTHER SPECIFIED POSTPROCEDURAL STATES (3) Surgical complication Code(s): T81.9XXA - UNSPECIFIED COMPLICATION OF PROCEDURE, INITIAL ENCOUNTER Qualifiers: Surgical complication system/body Area: musculoskeletal system Bone affected by surgical complication: femur Laterality: right (4) B12 deficiency Code(s): E53.8 - DEFICIENCY OF OTHER SPECIFIED B GROUP VITAMINS (5) Dementia Code(s): F03.90 - UNSPECIFIED DEMENTIA WITHOUT BEHAVIORAL DISTURBANCE Qualifiers: Dementia type: Alzheimer's disease Dementia behavioral disturbance: with behavioral disturbance (6) Anemia Code(s): D64.9 - ANEMIA, UNSPECIFIED Qualifiers: Other causes of anemia: chronic disease, other (7) Dementia Code(s): F03.90 - UNSPECIFIED DEMENTIA WITHOUT BEHAVIORAL DISTURBANCE Qualifiers: Dementia type: Alzheimer's disease Dementia behavioral disturbance: with behavioral disturbance Assessment/Plan IV ABX PER ID AWAIT CX PT/OOB TO 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
[2017-04-25] MEDS: Methylnaltrexone Bromide 12 MG/0.6 ML KIT SQ SCH (12:30)
--- NOTE | 2017-04-25 14:17 | PN ---
Progress Note, Physician History of Present Illness: Awake, but confused Post op removal of R hip orthopedic hardware and conversion to hemiarthroplasty Febrile Repeat cultures obtained Urine c/s LF CXR no new infiltrate - Current Medication List Current Medications: Active Medications Amlodipine Besylate (Norvasc -) 10 mg PO DAILY [facility] Last Admin: 04/25/17 11:26 Dose: 10 mg Bacitracin (Bacitracin -) 1 applic TP BID [facility] Last Admin: 04/25/17 11:26 Dose: 1 applic Brimonidine Tartrate (Alphagan 0.2% -) 1 drop OU DAILY [facility] Last Admin: 04/25/17 11:25 Dose: 1 drop Docusate Sodium (Colace -) 300 mg PO HS [facility] Last Admin: 04/24/17 22:46 Dose: Not Given Dorzolamide HCl (Trusopt 2%) 1 drop OU BID [facility] Last Admin: 04/25/17 11:26 Dose: 1 drop Enoxaparin Sodium (Lovenox -) 30 mg SQ DAILY [facility] Last Admin: 04/25/17 11:26 Dose: 30 mg Ferrous Sulfate (Feosol -) 325 mg PO BID [facility] Last Admin: 04/25/17 11:26 Dose: 325 mg Latanoprost (Xalatan 0.005% Eye Drops -) 1 drop OU DAILY@1800 [facility] Last Admin: 04/24/17 17:31 Dose: 1 drop Methylnaltrexone [place] (Relistor -) 12 mg SQ DAILY [facility] Last Admin: 04/25/17 12:30 Dose: 12 mg Olanzapine (Zyprexa -) 5 mg PO BID [facility] Last Admin: 04/25/17 11:26 Dose: 5 mg Oxycodone HCl (Roxicodone -) 5 mg PO Q6H PRN PRN Reason: PAIN Last Admin: 04/24/17 12:05 Dose: 5 mg Senna (Senna Oral Solution -) 8.8 mg PO HS [facility] Last Admin: 04/24/17 22:46 Dose: 8.8 mg Timolol Maleate (Timoptic 0.5%) 1 drop OU BID [facility] Last Admin: 04/25/17 11:26 Dose: 1 drop - Objective Vital Signs: Vital Signs Temperature 98.1 F 04/25/17 06:00 Pulse Rate 84 04/25/17 06:00 Respiratory Rate 20 04/25/17 06:00 Blood Pressure 122/60 04/25/17 06:00 O2 Sat by Pulse Oximetry (%) 95 04/25/17 09:00 Constitutional: Yes: No Distress Eyes: Yes: Conjunctiva Clear Cardiovascular: Yes: Regular Rate and Rhythm, S1, S2 Respiratory: Yes: Diminished Gastrointestinal: Yes: Normal Bowel Sounds, Soft. No: Tenderness Extremities: Yes: Other (R hip wound with serous drainage) Labs: CBC, BMP 04/24/17 05:22 04/24/17 05:22 INR, PTT INR 1.25 (0.82-1.09) H 04/15/17 10:52 Assessment/Plan S/P removal of orthopedic hardware and conversion ro hemiarthroplasty Fever ? source + Urine c/s LF Start ceftriaxone 1gm IVPB q24h
[2017-04-25] MEDS ORDERED: CEFTRIAXONE 1 G/50 ML PREMIX 50 ML IVPB SCH (14:45)
[2017-04-25] MEDS ORDERED: CEFTRIAXONE 1 GM/50 ML BAG IVPB SCH (14:45)
[2017-04-25] MEDS ORDERED: DOCUSATE NA 100 MG/10 ML UNIT-DOSE CUPS PO PRN (15:07)
[2017-04-25] MEDS ORDERED: ACETAMINOPHEN 650 MG SUPP.RECT PR PRN (15:18)
[2017-04-25] MEDS ORDERED: VANCOMYCIN 1,000 MG in DEXTROSE 5%-WATER - 250 ML IVPB ONE (17:30)
[2017-04-25] MEDS ORDERED: LORazepam 2 MG/ML SDV VIAL IVPUSH ONE (17:45)
[2017-04-25] MEDS: LATANOPROST 0.005% OPHTH SOLN 2.5ML BOTTLE OU SCH (17:54)
[2017-04-25] MEDS ORDERED: PT OWN MED DRAWER 7, Y5N ONE (23:14)
[2017-04-25] MEDS: SENNOSIDES 8.8 MG/5 ML BULK BOTTLE PO SCH (23:30)
[2017-04-25] MEDS: DOCUSATE SODIUM 100 MG CAPSULE (FP) PO SCH (23:30)
[2017-04-26] MEDS ORDERED: PT OWN MED DRAWER 7, Y5N ONE ×4 (05:53→21:49)
[2017-04-26 09:27] LABS: HEMATOCRIT 24.6 % (35.4-49); MCH 31.3 pg (25.7-33.7); MCHC 32.5 g/dl (32.0-35.9); MEAN CELL VOLUME 96.2 fl (80-96); MEAN PLT VOLUME 8.5 fl (7.5-11.1); PLATELET COUNT 374 K/MM3 (134-434); RBC 2.56 M/mm3 (4.00-5.60); RDW 17.2 % (11.9-15.9); WHITE BLOOD COUNT 8.6 K/mm3 (4.0-10.0)
[2017-04-26 09:56] LABS: ANION GAP 4 (8-16); BLOOD UREA NITROGEN 21 mg/dL (7-18); CALCIUM 7.8 mg/dL (8.5-10.1); CHLORIDE 102 mmol/L (98-107); CO2 33 mmol/L (21-32); CREATININE 1.1 mg/dL (0.7-1.3); GLUCOSE,RANDOM 172 mg/dL (74-106); POTASSIUM 4.4 mmol/L (3.5-5.1); SODIUM 139 mmol/L (136-145)
[2017-04-26] MEDS: FERROUS SO4 325 MG TABLET (FP) PO SCH ×2 (10:29→21:39)
[2017-04-26] MEDS: ENOXAPARIN NA (PORCINE) 30 MG/0.3 ML DISP.SYRIN SQ SCH (10:29)
[2017-04-26] MEDS: OLANZapine 5 MG TABLET PO SCH ×2 (10:30→21:41)
[2017-04-26] MEDS: amLODIPine BESYLATE 10 MG TABLET (FP) PO SCH (10:31)
[2017-04-26] MEDS: BRIMONIDINE TARTRATE 0.2% OPHTHALMIC 5 ML BOTTLE OU SCH (10:31)
[2017-04-26] MEDS: DORZOLAMIDE 2% HCL OPHTHALMIC SOLUTION 10 ML BOTTLE OU SCH ×2 (10:33→21:40)
[2017-04-26] MEDS: TIMOLOL 0.5% OPHTHALMIC SOL 5 ML BOTTLE OU SCH ×2 (10:33→21:41)
[2017-04-26] MEDS: Methylnaltrexone Bromide 12 MG/0.6 ML KIT SQ SCH (11:50)
[2017-04-26] MEDS: BACITRACIN 15 GM TUBE TOPICAL OINTMENT TP SCH ×2 (11:52→21:39)
--- NOTE | 2017-04-26 12:11 | PN ---
Progress Note, Physician Chief Complaint: ASLEEP RESTRAINTS REAPPLIED EVENTS REVIEWED - Current Medication List Current Medications: Active Medications Acetaminophen (Tylenol Suppository -) 650 mg [place] Q6H PRN PRN Reason: FEVER Amlodipine Besylate (Norvasc -) 10 mg PO DAILY [facility] Last Admin: 04/26/17 10:31 Dose: 10 mg Bacitracin (Bacitracin -) 1 applic TP BID [facility] Last Admin: 04/26/17 11:52 Dose: 1 applic Brimonidine Tartrate (Alphagan 0.2% -) 1 drop OU DAILY [facility] Last Admin: 04/26/17 10:31 Dose: 1 drop Docusate Sodium (Colace -) 300 mg PO HS [facility] Last Admin: 04/25/17 23:30 Dose: Not Given Docusate Sodium (Colace Liquid -) 100 mg PO DAILY PRN PRN Reason: CONSTIPATION Dorzolamide HCl (Trusopt 2%) 1 drop OU BID [facility] Last Admin: 04/26/17 10:33 Dose: 1 drop Enoxaparin Sodium (Lovenox -) 30 mg SQ DAILY [facility] Last Admin: 04/26/17 10:29 Dose: 30 mg Ferrous Sulfate (Feosol -) 325 mg PO BID [facility] Last Admin: 04/26/17 10:29 Dose: 325 mg CEFTRIAXONE 1 G/50 ML PREMIX (Ceftriaxone 1 Gm-D5w Bag) 50 mls @ 100 mls/hr IVPB DAILY [facility] Last Admin: 04/26/17 10:30 Dose: 100 mls/hr Latanoprost (Xalatan 0.005% Eye Drops -) 1 drop OU DAILY@1800 [facility] Last Admin: 04/25/17 17:54 Dose: Not Given Methylnaltrexone [place] (Relistor -) 12 mg SQ DAILY [facility] Last Admin: 04/26/17 11:50 Dose: 12 mg Olanzapine (Zyprexa -) 5 mg PO BID [facility] Last Admin: 04/26/17 10:30 Dose: 5 mg Senna (Senna Oral Solution -) 8.8 mg PO HS [facility] Last Admin: 04/25/17 23:30 Dose: 8.8 mg Timolol Maleate (Timoptic 0.5%) 1 drop OU BID [facility] Last Admin: 04/26/17 10:33 Dose: 1 drop - Objective Vital Signs: Vital Signs Temperature 98.6 F 04/26/17 06:00 Pulse Rate 78 04/26/17 06:00 Respiratory Rate 22 04/26/17 06:00 Blood Pressure 116/52 04/26/17 06:00 O2 Sat by Pulse Oximetry (%) 95 04/25/17 21:00 Constitutional: Yes: Mild Distress Eyes: Yes: WNL HENT: Yes: WNL Neck: Yes: WNL Cardiovascular: Yes: WNL Respiratory: Yes: WNL Gastrointestinal: Yes: WNL Genitourinary: Yes: Incontinence Musculoskeletal: Yes: Muscle Weakness Extremities: Yes: Other Edema: No Peripheral Pulses WNL: Yes Integumentary: Yes: Pressure Ulcer (STAGE 3 SACRAL ULCER) Neurological: Yes: Confusion, Pre-Existing Deficit ...Motor Strength: LLE, RLE Psychiatric: Yes: Other Labs: CBC, BMP 04/26/17 09:00 04/26/17 09:00 INR, PTT INR 1.25 (0.82-1.09) H 04/15/17 10:52 Problem List - Problems (1) Inability to ambulate due to hip Code(s): R26.2 - DIFFICULTY IN WALKING, NOT ELSEWHERE CLASSIFIED (2) Status post hip surgery Code(s): Z98.890 - OTHER SPECIFIED POSTPROCEDURAL STATES (3) Surgical complication Code(s): T81.9XXA - UNSPECIFIED COMPLICATION OF PROCEDURE, INITIAL ENCOUNTER Qualifiers: Surgical complication system/body Area: musculoskeletal system Bone affected by surgical complication: femur Laterality: right (4) B12 deficiency Code(s): E53.8 - DEFICIENCY OF OTHER SPECIFIED B GROUP VITAMINS (5) Dementia Code(s): F03.90 - UNSPECIFIED DEMENTIA WITHOUT BEHAVIORAL DISTURBANCE Qualifiers: Dementia type: Alzheimer's disease Dementia behavioral disturbance: with behavioral disturbance (6) Anemia Code(s): D64.9 - ANEMIA, UNSPECIFIED Qualifiers: Other causes of anemia: chronic disease, other (7) Dementia Code(s): F03.90 - UNSPECIFIED DEMENTIA WITHOUT BEHAVIORAL DISTURBANCE Qualifiers: Dementia type: Alzheimer's disease Dementia behavioral disturbance: with behavioral disturbance (8) Sacral decubitus ulcer, stage III Code(s): L89.153 - PRESSURE ULCER OF SACRAL REGION, STAGE 3 Assessment/Plan RESTRAINTS REAPPLIED DUE TO CONFUSION OVERNIGHT FAMILY BEDSIDE IV ABX FOR UTI ANEMIA WORSE TODAY CONTINUE TO MONITOR STOOL OCCULT NEGATIVE GI EVAL PT EVAL
--- NOTE | 2017-04-26 15:37 | PN ---
Progress Note, Physician History of Present Illness: Awake, but confused Post op removal of R hip orthopedic hardware and conversion to hemiarthroplasty Remains febrile Urine c/s ESBL - Current Medication List Current Medications: Active Medications Acetaminophen (Tylenol Suppository -) 650 mg [place] Q6H PRN PRN Reason: FEVER Amlodipine Besylate (Norvasc -) 10 mg PO DAILY [facility] Last Admin: 04/26/17 10:31 Dose: 10 mg Bacitracin (Bacitracin -) 1 applic TP BID [facility] Last Admin: 04/26/17 11:52 Dose: 1 applic Brimonidine Tartrate (Alphagan 0.2% -) 1 drop OU DAILY [facility] Last Admin: 04/26/17 10:31 Dose: 1 drop Docusate Sodium (Colace -) 300 mg PO HS [facility] Last Admin: 04/25/17 23:30 Dose: Not Given Docusate Sodium (Colace Liquid -) 100 mg PO DAILY PRN PRN Reason: CONSTIPATION Dorzolamide HCl (Trusopt 2%) 1 drop OU BID [facility] Last Admin: 04/26/17 10:33 Dose: 1 drop Enoxaparin Sodium (Lovenox -) 30 mg SQ DAILY [facility] Last Admin: 04/26/17 10:29 Dose: 30 mg Ertapenem (Invanz (Pre-Docked)) 1 gm IVPB DAILY [facility] Ferrous Sulfate (Feosol -) 325 mg PO BID [facility] Last Admin: 04/26/17 10:29 Dose: 325 mg Latanoprost (Xalatan 0.005% Eye Drops -) 1 drop OU DAILY@1800 [facility] Last Admin: 04/25/17 17:54 Dose: Not Given Methylnaltrexone [place] (Relistor -) 12 mg SQ DAILY [facility] Last Admin: 04/26/17 11:50 Dose: 12 mg Olanzapine (Zyprexa -) 5 mg PO BID [facility] Last Admin: 04/26/17 10:30 Dose: 5 mg Senna (Senna Oral Solution -) 8.8 mg PO HS [facility] Last Admin: 04/25/17 23:30 Dose: 8.8 mg Timolol Maleate (Timoptic 0.5%) 1 drop OU BID [facility] Last Admin: 04/26/17 10:33 Dose: 1 drop - Objective Vital Signs: Vital Signs Temperature 98.3 F 04/26/17 09:00 Pulse Rate 88 04/26/17 09:00 Respiratory Rate 04/26/17 09:00 Blood Pressure 128/60 04/26/17 09:00 O2 Sat by Pulse Oximetry (%) 95 04/25/17 21:00 Constitutional: Yes: No Distress Eyes: Yes: Conjunctiva Clear Cardiovascular: Yes: Regular Rate and Rhythm, S1, S2 Respiratory: Yes: CTA Bilaterally Gastrointestinal: Yes: Normal Bowel Sounds, Soft Extremities: Yes: Other (no R hip wound drainage noted) Edema: No Labs: CBC, BMP 04/26/17 09:00 04/26/17 09:00 INR, PTT INR 1.25 (0.82-1.09) H 04/15/17 10:52 Assessment/Plan S/P removal of orthopedic hardware and conversion ro hemiarthroplasty UTI ESBL D/C ceftriaxone. Start ertapenem 1gm q24h
[2017-04-26] MEDS ORDERED: ERTAPENEM SODIUM 1 GM/50 ML PRE-DOCKED IVPB SCH (15:45)
[2017-04-26] MEDS ORDERED: HALOPERIDOL LACTATE 5 MG/ML IM ONE (16:30)
[2017-04-26] MEDS: LATANOPROST 0.005% OPHTH SOLN 2.5ML BOTTLE OU SCH (17:01)
[2017-04-26] MEDS: ERTAPENEM SODIUM 1 GM in SODIUM CHLORIDE 100 ML IVPB SCH (21:38)
[2017-04-26] MEDS: SENNOSIDES 8.8 MG/5 ML BULK BOTTLE PO SCH (21:39)
[2017-04-26] MEDS: DOCUSATE SODIUM 100 MG CAPSULE (FP) PO SCH (21:39)
[2017-04-27] MEDS ORDERED: PT OWN MED DRAWER 7, Y5N ONE ×2 (10:54→21:18)
[2017-04-27] MEDS: ERTAPENEM SODIUM 1 GM in SODIUM CHLORIDE 100 ML IVPB SCH (10:56)
[2017-04-27] MEDS: FERROUS SO4 325 MG TABLET (FP) PO SCH ×2 (10:56→21:45)
[2017-04-27] MEDS: Methylnaltrexone Bromide 12 MG/0.6 ML KIT SQ SCH (10:56)
[2017-04-27] MEDS: amLODIPine BESYLATE 10 MG TABLET (FP) PO SCH (10:56)
[2017-04-27] MEDS: BACITRACIN 15 GM TUBE TOPICAL OINTMENT TP SCH ×2 (10:57→21:45)
[2017-04-27] MEDS: ENOXAPARIN NA (PORCINE) 30 MG/0.3 ML DISP.SYRIN SQ SCH (10:57)
[2017-04-27] MEDS: BRIMONIDINE TARTRATE 0.2% OPHTHALMIC 5 ML BOTTLE OU SCH (10:58)
[2017-04-27] MEDS: OLANZapine 5 MG TABLET PO SCH (10:58)
[2017-04-27] MEDS: TIMOLOL 0.5% OPHTHALMIC SOL 5 ML BOTTLE OU SCH ×2 (10:59→21:46)
[2017-04-27] MEDS: DORZOLAMIDE 2% HCL OPHTHALMIC SOLUTION 10 ML BOTTLE OU SCH ×2 (10:59→21:44)
--- NOTE | 2017-04-27 12:32 | PN ---
Progress Note, Physician Chief Complaint: AWAKE RESTRAINTS FOR CONFUSION ESBL IN ISOLATION ROOM - Current Medication List Current Medications: Active Medications Acetaminophen (Tylenol Suppository -) 650 mg [place] Q6H PRN PRN Reason: FEVER Amlodipine Besylate (Norvasc -) 10 mg PO DAILY [facility] Last Admin: 04/27/17 10:56 Dose: 10 mg Bacitracin (Bacitracin -) 1 applic TP BID [facility] Last Admin: 04/27/17 10:57 Dose: 1 applic Brimonidine Tartrate (Alphagan 0.2% -) 1 drop OU DAILY [facility] Last Admin: 04/27/17 10:58 Dose: 1 drop Docusate Sodium (Colace -) 300 mg PO HS [facility] Last Admin: 04/26/17 21:39 Dose: Not Given Docusate Sodium (Colace Liquid -) 100 mg PO DAILY PRN PRN Reason: CONSTIPATION Dorzolamide HCl (Trusopt 2%) 1 drop OU BID [facility] Last Admin: 04/27/17 10:59 Dose: 1 drop Enoxaparin Sodium (Lovenox -) 30 mg SQ DAILY [facility] Last Admin: 04/27/17 10:57 Dose: 30 mg Ferrous Sulfate (Feosol -) 325 mg PO BID [facility] Last Admin: 04/27/17 10:56 Dose: 325 mg Ertapenem 1 gm/ Sodium (Chloride) 100 mls @ 100 mls/hr IVPB DAILY [facility] Last Admin: 04/27/17 10:56 Dose: 100 mls/hr Latanoprost (Xalatan 0.005% Eye Drops -) 1 drop OU DAILY@1800 [facility] Last Admin: 04/26/17 17:01 Dose: Not Given Methylnaltrexone [place] (Relistor -) 12 mg SQ DAILY [facility] Last Admin: 04/27/17 10:56 Dose: 12 mg Olanzapine (Zyprexa -) 5 mg PO BID [facility] Last Admin: 04/27/17 10:58 Dose: 5 mg Senna (Senna Oral Solution -) 8.8 mg PO HS [facility] Last Admin: 04/26/17 21:39 Dose: 8.8 mg Timolol Maleate (Timoptic 0.5%) 1 drop OU BID [facility] Last Admin: 04/27/17 10:59 Dose: 1 drop - Objective Vital Signs: Vital Signs Temperature 98.3 F 04/27/17 08:00 Pulse Rate 82 04/27/17 08:00 Respiratory Rate 18 04/27/17 08:00 Blood Pressure 124/68 04/27/17 08:00 O2 Sat by Pulse Oximetry (%) 95 04/27/17 08:55 Constitutional: Yes: Mild Distress Eyes: Yes: WNL HENT: Yes: WNL Neck: Yes: WNL Cardiovascular: Yes: WNL Respiratory: Yes: WNL Gastrointestinal: Yes: WNL Genitourinary: Yes: Incontinence Musculoskeletal: Yes: Muscle Weakness Edema: No Peripheral Pulses WNL: Yes Integumentary: Yes: WNL Wound/Incision: Yes: Dressing Dry and Intact (STAGE 3 SACRAL ULCER) Neurological: Yes: Confusion ...Motor Strength: LLE, RLE Psychiatric: Yes: Agitated Labs: CBC, BMP 04/26/17 09:00 04/26/17 09:00 INR, PTT INR 1.25 (0.82-1.09) H 04/15/17 10:52 Problem List - Problems (1) Inability to ambulate due to hip Code(s): R26.2 - DIFFICULTY IN WALKING, NOT ELSEWHERE CLASSIFIED (2) Status post hip surgery Code(s): Z98.890 - OTHER SPECIFIED POSTPROCEDURAL STATES (3) Surgical complication Code(s): T81.9XXA - UNSPECIFIED COMPLICATION OF PROCEDURE, INITIAL ENCOUNTER Qualifiers: Surgical complication system/body Area: musculoskeletal system Bone affected by surgical complication: femur Laterality: right (4) B12 deficiency Code(s): E53.8 - DEFICIENCY OF OTHER SPECIFIED B GROUP VITAMINS (5) Dementia Code(s): F03.90 - UNSPECIFIED DEMENTIA WITHOUT BEHAVIORAL DISTURBANCE Qualifiers: Dementia type: Alzheimer's disease Dementia behavioral disturbance: with behavioral disturbance (6) Anemia Code(s): D64.9 - ANEMIA, UNSPECIFIED Qualifiers: Other causes of anemia: chronic disease, other (7) Dementia Code(s): F03.90 - UNSPECIFIED DEMENTIA WITHOUT BEHAVIORAL DISTURBANCE Qualifiers: Dementia type: Alzheimer's disease Dementia behavioral disturbance: with behavioral disturbance (8) Sacral decubitus ulcer, stage III Code(s): L89.153 - PRESSURE ULCER OF SACRAL REGION, STAGE 3 Assessment/Plan RESTRAINTS REAPPLIED DUE TO CONFUSION OVERNIGHT FAMILY BEDSIDE IV ABX FOR UTI ESBL ON ISOLATION ANEMIA WORSE TODAY CONTINUE TO MONITOR STOOL OCCULT NEGATIVE GI EVAL PT EVAL
--- NOTE | 2017-04-27 13:17 | PN ---
Progress Note, Physician History of Present Illness: Awake, but confused Post op removal of R hip orthopedic hardware and conversion to hemiarthroplasty Temps down WBC WNL Urine c/s ESBL - Current Medication List Current Medications: Active Medications Acetaminophen (Tylenol Suppository -) 650 mg [place] Q6H PRN PRN Reason: FEVER Amlodipine Besylate (Norvasc -) 10 mg PO DAILY [facility] Last Admin: 04/27/17 10:56 Dose: 10 mg Bacitracin (Bacitracin -) 1 applic TP BID [facility] Last Admin: 04/27/17 10:57 Dose: 1 applic Brimonidine Tartrate (Alphagan 0.2% -) 1 drop OU DAILY [facility] Last Admin: 04/27/17 10:58 Dose: 1 drop Docusate Sodium (Colace -) 300 mg PO HS [facility] Last Admin: 04/26/17 21:39 Dose: Not Given Docusate Sodium (Colace Liquid -) 100 mg PO DAILY PRN PRN Reason: CONSTIPATION Dorzolamide HCl (Trusopt 2%) 1 drop OU BID [facility] Last Admin: 04/27/17 10:59 Dose: 1 drop Enoxaparin Sodium (Lovenox -) 30 mg SQ DAILY [facility] Last Admin: 04/27/17 10:57 Dose: 30 mg Ferrous Sulfate (Feosol -) 325 mg PO BID [facility] Last Admin: 04/27/17 10:56 Dose: 325 mg Ertapenem 1 gm/ Sodium (Chloride) 100 mls @ 100 mls/hr IVPB DAILY [facility] Last Admin: 04/27/17 10:56 Dose: 100 mls/hr Latanoprost (Xalatan 0.005% Eye Drops -) 1 drop OU DAILY@1800 [facility] Last Admin: 04/26/17 17:01 Dose: Not Given Methylnaltrexone [place] (Relistor -) 12 mg SQ DAILY [facility] Last Admin: 04/27/17 10:56 Dose: 12 mg Olanzapine (Zyprexa -) 5 mg PO BID [facility] Last Admin: 04/27/17 10:58 Dose: 5 mg Senna (Senna Oral Solution -) 8.8 mg PO HS [facility] Last Admin: 04/26/17 21:39 Dose: 8.8 mg Timolol Maleate (Timoptic 0.5%) 1 drop OU BID [facility] Last Admin: 04/27/17 10:59 Dose: 1 drop - Objective Vital Signs: Vital Signs Temperature 98.3 F 04/27/17 08:00 Pulse Rate 82 04/27/17 08:00 Respiratory Rate 18 04/27/17 08:00 Blood Pressure 124/68 04/27/17 08:00 O2 Sat by Pulse Oximetry (%) 95 04/27/17 08:55 Constitutional: Yes: No Distress Cardiovascular: Yes: Regular Rate and Rhythm, S1, S2 Respiratory: Yes: CTA Bilaterally Gastrointestinal: Yes: Normal Bowel Sounds, Soft. No: Tenderness Extremities: Yes: Other (No R hip wound drainage noted) Labs: CBC, BMP 04/26/17 09:00 04/26/17 09:00 INR, PTT INR 1.25 (0.82-1.09) H 04/15/17 10:52 Assessment/Plan S/P removal of orthopedic hardware and conversion ro hemiarthroplasty UTI ESBL Continue ertapenem 1gm q24h Check wound c/s Contact precautions
--- NOTE | 2017-04-27 15:28 | PN ---
Progress Note (short form) - Note Progress Note: Still combative, thrashing around in bed, out of restraints. MS: Confused, disoriented unable to engage in any conversation.
[2017-04-27] MEDS: DOCUSATE SODIUM 100 MG CAPSULE (FP) PO SCH (21:40)
[2017-04-27] MEDS: SENNOSIDES 8.8 MG/5 ML BULK BOTTLE PO SCH (21:46)
[2017-04-27] MEDS: OLANZapine 7.5 MG TABLET PO SCH (22:04)
[2017-04-28 09:44] LABS: ANION GAP 11 (8-16); BLOOD UREA NITROGEN 17 mg/dL (7-18); CALCIUM 7.7 mg/dL (8.5-10.1); CHLORIDE 105 mmol/L (98-107); CO2 24 mmol/L (21-32); GLUCOSE,RANDOM 124 mg/dL (74-106); SODIUM 140 mmol/L (136-145)
[2017-04-28] MEDS ORDERED: PT OWN MED DRAWER 7, Y5N ONE ×2 (10:52→10:55)
[2017-04-28] MEDS: BRIMONIDINE TARTRATE 0.2% OPHTHALMIC 5 ML BOTTLE OU SCH (10:53)
[2017-04-28] MEDS: amLODIPine BESYLATE 10 MG TABLET (FP) PO SCH (10:53)
[2017-04-28] MEDS: FERROUS SO4 325 MG TABLET (FP) PO SCH ×2 (10:53→21:37)
[2017-04-28] MEDS: BACITRACIN 15 GM TUBE TOPICAL OINTMENT TP SCH ×2 (10:53→21:37)
[2017-04-28] MEDS: TIMOLOL 0.5% OPHTHALMIC SOL 5 ML BOTTLE OU SCH ×2 (10:54→21:42)
[2017-04-28] MEDS: OLANZapine 7.5 MG TABLET PO SCH ×2 (10:54→23:45)
[2017-04-28] MEDS: ENOXAPARIN NA (PORCINE) 30 MG/0.3 ML DISP.SYRIN SQ SCH (10:54)
[2017-04-28] MEDS: ERTAPENEM SODIUM 1 GM in SODIUM CHLORIDE 100 ML IVPB SCH (10:54)
[2017-04-28] MEDS: DORZOLAMIDE 2% HCL OPHTHALMIC SOLUTION 10 ML BOTTLE OU SCH ×2 (10:54→21:43)
[2017-04-28] MEDS: Methylnaltrexone Bromide 12 MG/0.6 ML KIT SQ SCH (10:54)
[2017-04-28 11:47] LABS: HEMATOCRIT 26.5 % (35.4-49); HEMOGLOBIN 8.5 GM/dL (11.7-16.9); MCH 30.9 pg (25.7-33.7); MCHC 32.2 g/dl (32.0-35.9); MEAN CELL VOLUME 96.1 fl (80-96); MEAN PLT VOLUME 8.5 fl (7.5-11.1); PLATELET COUNT 409 K/MM3 (134-434); RBC 2.76 M/mm3 (4.00-5.60); RDW 16.8 % (11.9-15.9); WHITE BLOOD COUNT 8.9 K/mm3 (4.0-10.0)
--- NOTE | 2017-04-28 11:54 | PN ---
Progress Note (short form) - Note Progress Note: Patient seen and examined Sedated , non communicative Last Vital Signs Temp Pulse Resp BP Pulse Ox 98.6 F 84 18 116/52 95 04/28/17 06:00 04/28/17 06:00 04/28/17 06:00 04/28/17 06:00 04/27/17 21:00 Edentulous Lungs- rhonchi Cor- RSR Abd- soft - normal bowel sounds Ext- right hip site- looks clean No significant LE edema CBC, BMP 04/28/17 11:28 04/28/17 07:50 Current Medications Generic Name Dose Route Start Last Admin Trade Name Freq PRN Reason Stop Dose Admin Acetaminophen 650 mg 04/25/17 15:18 Tylenol Suppository - [place] Q6H PRN FEVER Amlodipine Besylate 10 mg 04/16/17 10:00 04/28/17 10:53 Norvasc - PO 10 mg DAILY [facility] Administration Bacitracin 1 applic 04/17/17 22:00 04/28/17 10:53 Bacitracin - TP 1 applic BID [facility] Administration Brimonidine Tartrate 1 drop 04/16/17 10:00 04/28/17 10:53 Alphagan 0.2% - OU 1 drop DAILY [facility] Administration Docusate Sodium 300 mg 04/19/17 22:00 04/27/17 21:40 Colace - PO 300 mg HS [facility] Administration Docusate Sodium 100 mg 04/25/17 15:07 04/28/17 10:53 Colace Liquid - PO 100 mg DAILY PRN Administration CONSTIPATION Dorzolamide HCl 1 drop 04/15/17 22:00 04/28/17 10:54 Trusopt 2% OU 1 drop BID [facility] Administration Enoxaparin Sodium 30 mg 04/16/17 10:00 04/28/17 10:54 Lovenox - SQ 30 mg DAILY [facility] Administration Ferrous Sulfate 325 mg 04/19/17 22:00 04/28/17 10:53 Feosol - PO 325 mg BID [facility] Administration Ertapenem 1 gm/ Sodium 100 mls @ 100 mls/hr 04/26/17 16:00 04/28/17 10:54 Chloride IVPB 100 mls/hr DAILY [facility] Administration Latanoprost 1 drop 04/15/17 18:00 04/26/17 17:01 Xalatan 0.005% Eye Drops - OU Not Given DAILY@1800 [facility] Methylnaltrexone [place] 12 mg 04/23/17 10:30 04/28/17 10:54 Relistor - SQ 12 mg DAILY [facility] Administration Olanzapine 7.5 mg 04/27/17 22:00 04/28/17 10:54 Zyprexa - PO 7.5 mg BID [facility] Administration Senna 8.8 mg 04/21/17 22:00 04/27/17 21:46 Senna Oral Solution - PO 8.8 mg HS [facility] Administration Timolol Maleate 1 drop 04/15/17 22:00 04/28/17 10:54 Timoptic 0.5% OU 1 drop BID [facility] Administration Impression: S/P removal of orthopedic hardware and conversion to right hemiarthroplasty [id number] Anemia- chronic disease , blood letting, surgery Plan: Continue to monitor Continue Fe++.
--- NOTE | 2017-04-28 13:59 | PN ---
Progress Note, Physician History of Present Illness: Awake, but confused Combative at times Post op removal of R hip orthopedic hardware and conversion to hemiarthroplasty Temps down Afebrile WBC WNL Urine c/s ESBL Wound c/s mixed - Current Medication List Current Medications: Active Medications Acetaminophen (Tylenol Suppository -) 650 mg [place] Q6H PRN PRN Reason: FEVER Amlodipine Besylate (Norvasc -) 10 mg PO DAILY [facility] Last Admin: 04/28/17 10:53 Dose: 10 mg Bacitracin (Bacitracin -) 1 applic TP BID [facility] Last Admin: 04/28/17 10:53 Dose: 1 applic Brimonidine Tartrate ([place]ph[place] 0.2% -) 1 drop OU DAILY [facility] Last Admin: 04/28/17 10:53 Dose: 1 drop Docusate Sodium (Colace -) 300 mg PO HS [facility] Last Admin: 04/27/17 21:40 Dose: 300 mg Docusate Sodium (Colace Liquid -) 100 mg PO DAILY PRN PRN Reason: CONSTIPATION Last Admin: 04/28/17 10:53 Dose: 100 mg Dorzolamide HCl (Trusopt 2%) 1 drop OU BID [facility] Last Admin: 04/28/17 10:54 Dose: 1 drop Enoxaparin Sodium (Lovenox -) 30 mg SQ DAILY [facility] Last Admin: 04/28/17 10:54 Dose: 30 mg Ferrous Sulfate (Feosol -) 325 mg PO BID [facility] Last Admin: 04/28/17 10:53 Dose: 325 mg Ertapenem 1 gm/ Sodium (Chloride) 100 mls @ 100 mls/hr IVPB DAILY [facility] Last Admin: 04/28/17 10:54 Dose: 100 mls/hr Latanoprost (Xalatan 0.005% Eye Drops -) 1 drop OU DAILY@1800 [facility] Last Admin: 04/26/17 17:01 Dose: Not Given Methylnaltrexone [place] (Relistor -) 12 mg SQ DAILY [facility] Last Admin: 04/28/17 10:54 Dose: 12 mg Olanzapine (Zyprexa -) 7.5 mg PO BID [facility] Last Admin: 04/28/17 10:54 Dose: 7.5 mg Senna (Senna Oral Solution -) 8.8 mg PO HS [facility] Last Admin: 04/27/17 21:46 Dose: 8.8 mg Timolol Maleate (Timoptic 0.5%) 1 drop OU BID [facility] Last Admin: 04/28/17 10:54 Dose: 1 drop - Objective Vital Signs: Vital Signs Temperature 98.6 F 04/28/17 06:00 Pulse Rate 84 04/28/17 06:00 Respiratory Rate 18 04/28/17 06:00 Blood Pressure 116/52 04/28/17 06:00 O2 Sat by Pulse Oximetry (%) 95 04/28/17 09:00 Constitutional: Yes: No Distress, Cachectic Cardiovascular: Yes: Regular Rate and Rhythm, S1, S2 Respiratory: Yes: Diminished, Other (poor inspiratory effort) Gastrointestinal: Yes: Normal Bowel Sounds, Soft. No: Tenderness Extremities: Yes: Other (R hip wound no erythema/ drainage) Labs: CBC, BMP 04/28/17 11:28 04/28/17 07:50 INR, PTT INR 1.25 (0.82-1.09) H 04/15/17 10:52 Assessment/Plan S/P removal of orthopedic hardware and conversion ro hemiarthroplasty UTI ESBL Continue ertapenem 1gm q24h Await final wound c/s Contact precautions
--- NOTE | 2017-04-28 15:13 | PN ---
Progress Note, Physician Chief Complaint: AWAKE CONFUSED RESTRAINED STILL AGITATED - Current Medication List Current Medications: Active Medications Acetaminophen (Tylenol Suppository -) 650 mg [place] Q6H PRN PRN Reason: FEVER Amlodipine Besylate (Norvasc -) 10 mg PO DAILY [facility] Last Admin: 04/28/17 10:53 Dose: 10 mg Bacitracin (Bacitracin -) 1 applic TP BID [facility] Last Admin: 04/28/17 10:53 Dose: 1 applic Brimonidine Tartrate (Alphagan 0.2% -) 1 drop OU DAILY [facility] Last Admin: 04/28/17 10:53 Dose: 1 drop Docusate Sodium (Colace -) 300 mg PO HS [facility] Last Admin: 04/27/17 21:40 Dose: 300 mg Docusate Sodium (Colace Liquid -) 100 mg PO DAILY PRN PRN Reason: CONSTIPATION Last Admin: 04/28/17 10:53 Dose: 100 mg Dorzolamide HCl (Trusopt 2%) 1 drop OU BID [facility] Last Admin: 04/28/17 10:54 Dose: 1 drop Enoxaparin Sodium (Lovenox -) 30 mg SQ DAILY [facility] Last Admin: 04/28/17 10:54 Dose: 30 mg Ferrous Sulfate (Feosol -) 325 mg PO BID [facility] Last Admin: 04/28/17 10:53 Dose: 325 mg Ertapenem 1 gm/ Sodium (Chloride) 100 mls @ 100 mls/hr IVPB DAILY [facility] Last Admin: 04/28/17 10:54 Dose: 100 mls/hr Latanoprost (Xalatan 0.005% Eye Drops -) 1 drop OU DAILY@1800 [facility] Last Admin: 04/26/17 17:01 Dose: Not Given Methylnaltrexone [place] (Relistor -) 12 mg SQ DAILY [facility] Last Admin: 04/28/17 10:54 Dose: 12 mg Olanzapine (Zyprexa -) 7.5 mg PO BID [facility] Last Admin: 04/28/17 10:54 Dose: 7.5 mg Senna (Senna Oral Solution -) 8.8 mg PO HS [facility] Last Admin: 04/27/17 21:46 Dose: 8.8 mg Timolol Maleate (Timoptic 0.5%) 1 drop OU BID [facility] Last Admin: 04/28/17 10:54 Dose: 1 drop - Objective Vital Signs: Vital Signs Temperature 99.4 F 04/28/17 14:50 Pulse Rate 80 04/28/17 14:50 Respiratory Rate 20 04/28/17 14:50 Blood Pressure 116/52 04/28/17 06:00 O2 Sat by Pulse Oximetry (%) 95 04/28/17 09:00 Constitutional: Yes: Moderate Distress Eyes: Yes: WNL HENT: Yes: WNL Neck: Yes: WNL Cardiovascular: Yes: WNL Respiratory: Yes: WNL Gastrointestinal: Yes: WNL Genitourinary: Yes: Incontinence Musculoskeletal: Yes: Muscle Weakness Extremities: Yes: WNL Edema: No Peripheral Pulses WNL: Yes Integumentary: Yes: Pressure Ulcer Wound/Incision: Yes: Dressing Dry and Intact (SACRAL STAGE 3 ULCER) Neurological: Yes: Confusion, Weakness ...Motor Strength: LLE, RLE Psychiatric: Yes: Agitated Labs: CBC, BMP 04/28/17 11:28 04/28/17 07:50 INR, PTT INR 1.25 (0.82-1.09) H 04/15/17 10:52 Problem List - Problems (1) Inability to ambulate due to hip Code(s): R26.2 - DIFFICULTY IN WALKING, NOT ELSEWHERE CLASSIFIED (2) Status post hip surgery Code(s): Z98.890 - OTHER SPECIFIED POSTPROCEDURAL STATES (3) Surgical complication Code(s): T81.9XXA - UNSPECIFIED COMPLICATION OF PROCEDURE, INITIAL ENCOUNTER Qualifiers: Surgical complication system/body Area: musculoskeletal system Bone affected by surgical complication: femur Laterality: right (4) B12 deficiency Code(s): E53.8 - DEFICIENCY OF OTHER SPECIFIED B GROUP VITAMINS (5) Dementia Code(s): F03.90 - UNSPECIFIED DEMENTIA WITHOUT BEHAVIORAL DISTURBANCE Qualifiers: Dementia type: Alzheimer's disease Dementia behavioral disturbance: with behavioral disturbance (6) Anemia Code(s): D64.9 - ANEMIA, UNSPECIFIED Qualifiers: Other causes of anemia: chronic disease, other (7) Dementia Code(s): F03.90 - UNSPECIFIED DEMENTIA WITHOUT BEHAVIORAL DISTURBANCE Qualifiers: Dementia type: Alzheimer's disease Dementia behavioral disturbance: with behavioral disturbance (8) Sacral decubitus ulcer, stage III Code(s): L89.153 - PRESSURE ULCER OF SACRAL REGION, STAGE 3 Assessment/Plan ZYPREXA INCREASED BY PSYCHIATRY SACRAL ULCER STAGE 3 WILL NEED OFFLOADING SANTYL RESTRAINTS CONTINUED WILL HOLD OFF ON DC PLANNING UNTIL PATIENT LESS AGITATED RIGHT HIP NO INFECTION ORTHOPEDIC F/U APPRECIATED
[2017-04-28] MEDS: LATANOPROST 0.005% OPHTH SOLN 2.5ML BOTTLE OU SCH ×2 (15:42→17:36)
--- NOTE | 2017-04-28 16:20 | PN ---
Progress Note (short form) - Note Progress Note: VAscular Surgery Pt seen and examined. STage 3 sacral ulcer with slough in center. Offload sacrum, start santyl to area daily. Fazal dee dO
[2017-04-28] MEDS: COLLAGENASE CLOSTRIDIUM HIST. 30 GRAMS TUBE TP SCH (18:28)
[2017-04-28] MEDS: DOCUSATE SODIUM 100 MG CAPSULE (FP) PO SCH (21:37)
[2017-04-28] MEDS: SENNOSIDES 8.8 MG/5 ML BULK BOTTLE PO SCH (21:38)
[2017-04-28] MEDS: OLANZAPINE 5 MG, OLANZAPINE 2.5 MG PO SCH (22:39)
[2017-04-29] MEDS ORDERED: PT OWN MED DRAWER 7, Y5N ONE ×2 (10:46→23:14)
--- NOTE | 2017-04-29 10:48 | PN ---
Progress Note, Physician History of Present Illness: Awake, but confused Combative at times Post op removal of R hip orthopedic hardware and conversion to hemiarthroplasty Temps down Afebrile WBC WNL Urine c/s ESBL Wound c/s mixed ESBL/MRSA - Current Medication List Current Medications: Active Medications Acetaminophen (Tylenol Suppository -) 650 mg [place] Q6H PRN PRN Reason: FEVER Last Admin: 04/29/17 06:17 Dose: 650 mg Amlodipine Besylate (Norvasc -) 10 mg PO DAILY [facility] Last Admin: 04/28/17 10:53 Dose: 10 mg Bacitracin (Bacitracin -) 1 applic TP BID [facility] Last Admin: 04/28/17 21:37 Dose: 1 applic Brimonidine Tartrate (Alphagan 0.2% -) 1 drop OU DAILY [facility] Last Admin: 04/28/17 10:53 Dose: 1 drop Collagenase (Santyl -) 1 applic TP DAILY [facility] Last Admin: 04/28/17 18:28 Dose: 1 applic Docusate Sodium (Colace -) 300 mg PO HS [facility] Last Admin: 04/28/17 21:37 Dose: 300 mg Docusate Sodium (Colace Liquid -) 100 mg PO DAILY PRN PRN Reason: CONSTIPATION Last Admin: 04/28/17 10:53 Dose: 100 mg Dorzolamide HCl (Trusopt 2%) 1 drop OU BID [facility] Last Admin: 04/28/17 21:43 Dose: 1 drop Enoxaparin Sodium (Lovenox -) 30 mg SQ DAILY [facility] Last Admin: 04/28/17 10:54 Dose: 30 mg Ferrous Sulfate (Feosol -) 325 mg PO BID [facility] Last Admin: 04/28/17 21:37 Dose: 325 mg Ertapenem 1 gm/ Sodium (Chloride) 100 mls @ 100 mls/hr IVPB DAILY [facility] Last Admin: 04/28/17 10:54 Dose: 100 mls/hr Latanoprost (Xalatan 0.005% Eye Drops -) 1 drop OU DAILY@1800 [facility] Last Admin: 04/28/17 17:36 Dose: 1 drop Methylnaltrexone [place] (Relistor -) 12 mg SQ DAILY [facility] Last Admin: 04/28/17 10:54 Dose: 12 mg Olanzapine 5 mg/ Olanzapine 2. (5 mg) 7.5 mg PO BID [facility] Last Admin: 04/28/17 22:39 Dose: 7.5 mg Senna (Senna Oral Solution -) 8.8 mg PO HS [facility] Last Admin: 04/28/17 21:38 Dose: 8.8 mg Timolol Maleate (Timoptic 0.5%) 1 drop OU BID [facility] Last Admin: 04/28/17 21:42 Dose: 1 drop - Objective Vital Signs: Vital Signs Temperature 99.0 F 04/29/17 06:00 Pulse Rate 76 04/29/17 06:00 Respiratory Rate 20 04/29/17 06:00 Blood Pressure 107/56 04/29/17 06:00 O2 Sat by Pulse Oximetry (%) 95 04/28/17 20:19 Constitutional: Yes: No Distress Eyes: Yes: Conjunctiva Clear Cardiovascular: Yes: Regular Rate and Rhythm, S1, S2 Respiratory: Yes: Diminished Gastrointestinal: Yes: Normal Bowel Sounds, Soft. No: Tenderness Edema: No Integumentary: Yes: Other (R hip wound no eryteham/ drainage) Labs: CBC, BMP 04/28/17 11:28 04/28/17 07:50 INR, PTT INR 1.25 (0.82-1.09) H 04/15/17 10:52 Assessment/Plan S/P removal of orthopedic hardware and conversion ro hemiarthroplasty UTI ESBL D/C ertapenem Levaquin 250mg po qd + Bactrim DS po bid x 7d
[2017-04-29] MEDS: ERTAPENEM SODIUM 1 GM in SODIUM CHLORIDE 100 ML IVPB SCH (11:10)
[2017-04-29] MEDS: Methylnaltrexone Bromide 12 MG/0.6 ML KIT SQ SCH (11:11)
[2017-04-29] MEDS: OLANZAPINE 5 MG, OLANZAPINE 2.5 MG PO SCH ×2 (11:11→23:23)
[2017-04-29] MEDS: ENOXAPARIN NA (PORCINE) 30 MG/0.3 ML DISP.SYRIN SQ SCH (11:12)
[2017-04-29] MEDS: FERROUS SO4 325 MG TABLET (FP) PO SCH ×2 (11:12→23:21)
[2017-04-29] MEDS: COLLAGENASE CLOSTRIDIUM HIST. 30 GRAMS TUBE TP SCH (11:14)
[2017-04-29] MEDS: DORZOLAMIDE 2% HCL OPHTHALMIC SOLUTION 10 ML BOTTLE OU SCH ×2 (11:15→23:23)
[2017-04-29] MEDS: TIMOLOL 0.5% OPHTHALMIC SOL 5 ML BOTTLE OU SCH ×2 (11:16→23:23)
[2017-04-29] MEDS: BRIMONIDINE TARTRATE 0.2% OPHTHALMIC 5 ML BOTTLE OU SCH (11:16)
--- NOTE | 2017-04-29 11:16 | PN ---
Progress Note, Physician Chief Complaint: in restraints moaning eyes closed iv abx change to po - Current Medication List Current Medications: Active Medications Acetaminophen (Tylenol Suppository -) 650 mg [place] Q6H PRN PRN Reason: FEVER Last Admin: 04/29/17 06:17 Dose: 650 mg Amlodipine Besylate (Norvasc -) 10 mg PO DAILY [facility] Last Admin: 04/28/17 10:53 Dose: 10 mg Bacitracin (Bacitracin -) 1 applic TP BID [facility] Last Admin: 04/28/17 21:37 Dose: 1 applic Brimonidine Tartrate (Alphagan 0.2% -) 1 drop OU DAILY [facility] Last Admin: 04/28/17 10:53 Dose: 1 drop Collagenase (Santyl -) 1 applic TP DAILY [facility] Last Admin: 04/28/17 18:28 Dose: 1 applic Docusate Sodium (Colace -) 300 mg PO HS [facility] Last Admin: 04/28/17 21:37 Dose: 300 mg Docusate Sodium (Colace Liquid -) 100 mg PO DAILY PRN PRN Reason: CONSTIPATION Last Admin: 04/28/17 10:53 Dose: 100 mg Dorzolamide HCl (Trusopt 2%) 1 drop OU BID [facility] Last Admin: 04/28/17 21:43 Dose: 1 drop Enoxaparin Sodium (Lovenox -) 30 mg SQ DAILY [facility] Last Admin: 04/28/17 10:54 Dose: 30 mg Ferrous Sulfate (Feosol -) 325 mg PO BID [facility] Last Admin: 04/28/17 21:37 Dose: 325 mg Latanoprost (Xalatan 0.005% Eye Drops -) 1 drop OU DAILY@1800 [facility] Last Admin: 04/28/17 17:36 Dose: 1 drop Levofloxacin (Levaquin -) 250 mg PO DAILY@0600 [facility] Methylnaltrexone [place] (Relistor -) 12 mg SQ DAILY [facility] Last Admin: 04/28/17 10:54 Dose: 12 mg Olanzapine 5 mg/ Olanzapine 2. (5 mg) 7.5 mg PO BID [facility] Last Admin: 04/28/17 22:39 Dose: 7.5 mg Senna (Senna Oral Solution -) 8.8 mg PO HS [facility] Last Admin: 04/28/17 21:38 Dose: 8.8 mg Timolol Maleate (Timoptic 0.5%) 1 drop OU BID [facility] Last Admin: 04/28/17 21:42 Dose: 1 drop Trimethoprim/Sulfamethoxazole (Bactrim Ds -) 1 each PO BID [facility] - Objective Vital Signs: Vital Signs Temperature 99.0 F 04/29/17 06:00 Pulse Rate 76 04/29/17 06:00 Respiratory Rate 20 04/29/17 06:00 Blood Pressure 107/56 04/29/17 06:00 O2 Sat by Pulse Oximetry (%) 95 04/28/17 20:19 Constitutional: Yes: Other (moaning in bed in restraints) Cardiovascular: Yes: Regular Rate and Rhythm, S1, S2 Respiratory: Yes: CTA Bilaterally Gastrointestinal: Yes: Normal Bowel Sounds, Soft Edema: No Labs: CBC, BMP 04/28/17 11:28 04/28/17 07:50 INR, PTT INR 1.25 (0.82-1.09) H 04/15/17 10:52 Problem List - Problems (1) Constipation Assessment/Plan: on relistor Code(s): K59.00 - CONSTIPATION, UNSPECIFIED (2) Dementia Assessment/Plan: zyprexa dose increase still in restraints needs to be off restraints in order to go to [place] Code(s): F03.90 - UNSPECIFIED DEMENTIA WITHOUT BEHAVIORAL DISTURBANCE Qualifiers: Dementia type: Alzheimer's disease Dementia behavioral disturbance: with behavioral disturbance (3) Sacral decubitus ulcer, stage III Assessment/Plan: off load and santyl appreciate vascular input Code(s): L89.153 - PRESSURE ULCER OF SACRAL REGION, STAGE 3 (4) Status post hip surgery Assessment/Plan: s/p surgery dvt ppx Code(s): Z98.890 - OTHER SPECIFIED POSTPROCEDURAL STATES (5) UTI (urinary tract infection) Code(s): N39.0 - URINARY TRACT INFECTION, SITE NOT SPECIFIED (6) UTI due to extended-spectrum beta lactamase (ESBL) producing Escherichia coli Assessment/Plan: levaquin and bactrim for 7 days Code(s): N39.0 - URINARY TRACT INFECTION, SITE NOT SPECIFIED; A49.8 - OTHER BACTERIAL INFECTIONS OF UNSPECIFIED SITE; Z16.12 - EXTENDED SPECTRUM BETA LACTAMASE (ESBL) RESISTANCE (7) Anemia Assessment/Plan: seen by gi and heme conservative managment on ferrous sulfate Code(s): D64.9 - ANEMIA, UNSPECIFIED Qualifiers: Other causes of anemia: chronic disease, other
[2017-04-29] MEDS: amLODIPine BESYLATE 10 MG TABLET (FP) PO SCH (11:17)
[2017-04-29] MEDS: BACITRACIN 15 GM TUBE TOPICAL OINTMENT TP SCH ×2 (11:17→23:21)
[2017-04-29] MEDS: LATANOPROST 0.005% OPHTH SOLN 2.5ML BOTTLE OU SCH (17:29)
[2017-04-29] MEDS: DOCUSATE SODIUM 100 MG CAPSULE (FP) PO SCH (23:21)
[2017-04-29] MEDS: SULFAMETHOXAZOLE/TRIMETHOPRIM 800MG/160MG D.S. TABLET PO SCH (23:21)
[2017-04-29] MEDS: SENNOSIDES 8.8 MG/5 ML BULK BOTTLE PO SCH (23:22)
[2017-04-30] MEDS: LEVOFLOXACIN 250 MG TABLET (FP) PO SCH ×2 (06:39→07:18)
[2017-04-30] MEDS: SULFAMETHOXAZOLE/TRIMETHOPRIM 800MG/160MG D.S. TABLET PO SCH ×3 (07:18→21:27)
[2017-04-30] MEDS ORDERED: PT OWN MED DRAWER 7, Y5N ONE ×2 (10:20→21:26)
[2017-04-30] MEDS: amLODIPine BESYLATE 10 MG TABLET (FP) PO SCH (10:28)
[2017-04-30] MEDS: ENOXAPARIN NA (PORCINE) 30 MG/0.3 ML DISP.SYRIN SQ SCH (10:28)
[2017-04-30] MEDS: FERROUS SO4 325 MG TABLET (FP) PO SCH ×2 (10:28→21:27)
[2017-04-30] MEDS: BRIMONIDINE TARTRATE 0.2% OPHTHALMIC 5 ML BOTTLE OU SCH (10:28)
[2017-04-30] MEDS: BACITRACIN 15 GM TUBE TOPICAL OINTMENT TP SCH ×2 (10:28→21:27)
[2017-04-30] MEDS: TIMOLOL 0.5% OPHTHALMIC SOL 5 ML BOTTLE OU SCH ×2 (10:29→21:28)
[2017-04-30] MEDS: OLANZAPINE 5 MG, OLANZAPINE 2.5 MG PO SCH ×2 (10:29→21:27)
[2017-04-30] MEDS: DORZOLAMIDE 2% HCL OPHTHALMIC SOLUTION 10 ML BOTTLE OU SCH ×2 (10:29→21:28)
[2017-04-30] MEDS: Methylnaltrexone Bromide 12 MG/0.6 ML KIT SQ SCH (10:30)
[2017-04-30] MEDS: COLLAGENASE CLOSTRIDIUM HIST. 30 GRAMS TUBE TP SCH (10:31)
--- NOTE | 2017-04-30 18:33 | PN ---
Progress Note, Physician - Current Medication List Current Medications: Active Medications Acetaminophen (Tylenol Suppository -) 650 mg [place] Q6H PRN PRN Reason: FEVER Last Admin: 04/29/17 06:17 Dose: 650 mg Amlodipine Besylate (Norvasc -) 10 mg PO DAILY [facility] Last Admin: 04/30/17 10:28 Dose: 10 mg Bacitracin (Bacitracin -) 1 applic TP BID [facility] Last Admin: 04/30/17 10:28 Dose: 1 applic Brimonidine Tartrate (Alphagan 0.2% -) 1 drop OU DAILY [facility] Last Admin: 04/30/17 10:28 Dose: 1 drop Collagenase (Santyl -) 1 applic TP DAILY [facility] Last Admin: 04/30/17 10:31 Dose: 1 applic Docusate Sodium (Colace -) 300 mg PO HS [facility] Last Admin: 04/29/17 23:21 Dose: 300 mg Docusate Sodium (Colace Liquid -) 100 mg PO DAILY PRN PRN Reason: CONSTIPATION Last Admin: 04/28/17 10:53 Dose: 100 mg Dorzolamide HCl (Trusopt 2%) 1 drop OU BID [facility] Last Admin: 04/30/17 10:29 Dose: 1 drop Enoxaparin Sodium (Lovenox -) 30 mg SQ DAILY [facility] Last Admin: 04/30/17 10:28 Dose: 30 mg Ferrous Sulfate (Feosol -) 325 mg PO BID [facility] Last Admin: 04/30/17 10:28 Dose: 325 mg Latanoprost (Xalatan 0.005% Eye Drops -) 1 drop OU DAILY@1800 [facility] Last Admin: 04/29/17 17:29 Dose: Not Given Levofloxacin (Levaquin -) 250 mg PO DAILY@0600 [facility] Last Admin: 04/30/17 07:18 Dose: Not Given Olanzapine 5 mg/ Olanzapine 2. (5 mg) 7.5 mg PO BID [facility] Last Admin: 04/30/17 10:29 Dose: 7.5 mg Senna (Senna Oral Solution -) 8.8 mg PO HS [facility] Last Admin: 04/29/17 23:22 Dose: 8.8 mg Timolol Maleate (Timoptic 0.5%) 1 drop OU BID [facility] Last Admin: 04/30/17 10:29 Dose: 1 drop Trimethoprim/Sulfamethoxazole (Bactrim Ds -) 1 each PO BID [facility] Last Admin: 04/30/17 10:28 Dose: 1 each - Objective Vital Signs: Vital Signs Temperature 97.9 F 04/30/17 15:04 Pulse Rate 72 04/30/17 15:04 Respiratory Rate 18 04/30/17 15:04 Blood Pressure 111/57 04/30/17 15:04 O2 Sat by Pulse Oximetry (%) 95 04/28/17 20:19 Labs: CBC, BMP 04/28/17 11:28 04/28/17 07:50 INR, PTT INR 1.25 (0.82-1.09) H 04/15/17 10:52 Problem List - Problems (1) Inability to ambulate due to hip Code(s): R26.2 - DIFFICULTY IN WALKING, NOT ELSEWHERE CLASSIFIED (2) Status post hip surgery Code(s): Z98.890 - OTHER SPECIFIED POSTPROCEDURAL STATES (3) Surgical complication Code(s): T81.9XXA - UNSPECIFIED COMPLICATION OF PROCEDURE, INITIAL ENCOUNTER Qualifiers: Surgical complication system/body Area: musculoskeletal system Bone affected by surgical complication: femur Laterality: right (4) B12 deficiency Code(s): E53.8 - DEFICIENCY OF OTHER SPECIFIED B GROUP VITAMINS (5) Dementia Code(s): F03.90 - UNSPECIFIED DEMENTIA WITHOUT BEHAVIORAL DISTURBANCE Qualifiers: Dementia type: Alzheimer's disease Dementia behavioral disturbance: with behavioral disturbance (6) Anemia Code(s): D64.9 - ANEMIA, UNSPECIFIED Qualifiers: Other causes of anemia: chronic disease, other (7) Dementia Code(s): F03.90 - UNSPECIFIED DEMENTIA WITHOUT BEHAVIORAL DISTURBANCE Qualifiers: Dementia type: Alzheimer's disease Dementia behavioral disturbance: with behavioral disturbance (8) Sacral decubitus ulcer, stage III Code(s): L89.153 - PRESSURE ULCER OF SACRAL REGION, STAGE 3
[2017-04-30] MEDS ORDERED: ACETAMINOPHEN 325 MG TABLET (FP) PO PRN (18:57)
--- NOTE | 2017-04-30 19:00 | PN ---
Progress Note, Physician Chief Complaint: s/p right femur removal of hardware with conversion to hemiarthroplasty History of Present Illness: NAD, no agitation at this time -calmer today -seen by Psychiatry -on zyprexa, -wrist restraints off Since AM -awaiting placement-SNF -Spo2 dropped off nasal o2 to 73%, is on 4l N/C - Current Medication List Current Medications: Active Medications Acetaminophen (Tylenol Suppository -) 650 mg [place] Q6H PRN PRN Reason: FEVER Last Admin: 04/29/17 06:17 Dose: 650 mg Amlodipine Besylate (Norvasc -) 10 mg PO DAILY [facility] Last Admin: 04/30/17 10:28 Dose: 10 mg Bacitracin (Bacitracin -) 1 applic TP BID [facility] Last Admin: 04/30/17 10:28 Dose: 1 applic Brimonidine Tartrate (Alph[place] 0.2% -) 1 drop OU DAILY [facility] Last Admin: 04/30/17 10:28 Dose: 1 drop Collagenase (Santyl -) 1 applic TP DAILY [facility] Last Admin: 04/30/17 10:31 Dose: 1 applic Docusate Sodium (Colace -) 300 mg PO HS [facility] Last Admin: 04/29/17 23:21 Dose: 300 mg Docusate Sodium (Colace Liquid -) 100 mg PO DAILY PRN PRN Reason: CONSTIPATION Last Admin: 04/28/17 10:53 Dose: 100 mg Dorzolamide HCl (Trusopt 2%) 1 drop OU BID [facility] Last Admin: 04/30/17 10:29 Dose: 1 drop Enoxaparin Sodium (Lovenox -) 30 mg SQ DAILY [facility] Last Admin: 04/30/17 10:28 Dose: 30 mg Ferrous Sulfate (Feosol -) 325 mg PO BID [facility] Last Admin: 04/30/17 10:28 Dose: 325 mg Latanoprost (Xalatan 0.005% Eye Drops -) 1 drop OU DAILY@1800 [facility] Last Admin: 04/29/17 17:29 Dose: Not Given Levofloxacin (Levaquin -) 250 mg PO DAILY@0600 [facility] Last Admin: 04/30/17 07:18 Dose: Not Given Olanzapine 5 mg/ Olanzapine 2. (5 mg) 7.5 mg PO BID [facility] Last Admin: 04/30/17 10:29 Dose: 7.5 mg Senna (Senna Oral Solution -) 8.8 mg PO HS [facility] Last Admin: 04/29/17 23:22 Dose: 8.8 mg Timolol Maleate (Timoptic 0.5%) 1 drop OU BID [facility] Last Admin: 04/30/17 10:29 Dose: 1 drop Trimethoprim/Sulfamethoxazole (Bactrim Ds -) 1 each PO BID [facility] Last Admin: 04/30/17 10:28 Dose: 1 each - Objective Vital Signs: Vital Signs Temperature 97.9 F 04/30/17 15:04 Pulse Rate 72 04/30/17 15:04 Respiratory Rate 18 04/30/17 15:04 Blood Pressure 111/57 04/30/17 15:04 O2 Sat by Pulse Oximetry (%) 95 04/28/17 20:19 Constitutional: Yes: Well Nourished, No Distress, Calm Cardiovascular: Yes: Regular Rate and Rhythm Respiratory: Yes: Regular Gastrointestinal: Yes: Normal Bowel Sounds, Soft Musculoskeletal: Yes: Muscle Weakness Extremities: Yes: WNL Edema: No Peripheral Pulses WNL: Yes Neurological: Yes: Alert, Pre-Existing Deficit Psychiatric: Yes: Alert Labs: CBC, BMP 04/28/17 11:28 04/28/17 07:50 INR, PTT INR 1.25 (0.82-1.09) H 04/15/17 10:52 Problem List - Problems (1) Anemia Assessment/Plan: -seen by Hematology -received PRBC 2 units -Iron, B 12- normal, -folate normal -A1c 5.5 -stool OB negative -Spep pending Code(s): D64.9 - ANEMIA, UNSPECIFIED Qualifiers: Other causes of anemia: chronic disease, other (2) Dementia Assessment/Plan: -seen by psychiatry and psychology -likely exacerbated secondary to anesthesia or pain meds -Zyprexa increased 7.5mg po BID by psychiatry -Caregivers to maintain safety precautions Code(s): F03.90 - UNSPECIFIED DEMENTIA WITHOUT BEHAVIORAL DISTURBANCE Qualifiers: Dementia type: Alzheimer's disease Dementia behavioral disturbance: with behavioral disturbance (3) Status post hip surgery Assessment/Plan: -pain management -tylenol for pain -colace and senna for constipation Code(s): Z98.890 - OTHER SPECIFIED POSTPROCEDURAL STATES (4) Altered mental status Code(s): R41.82 - ALTERED MENTAL STATUS, UNSPECIFIED Qualifiers: Altered mental status type: delirium Qualified Code(s): R41.0 - Disorientation, unspecified (5) Constipation Assessment/Plan: -colace, senna Code(s): K59.00 - CONSTIPATION, UNSPECIFIED Assessment/Plan see problem list DVT prophylaxis GI prophylaxis D/C to SNF
[2017-04-30] MEDS: SENNOSIDES 8.8 MG/5 ML BULK BOTTLE PO SCH (21:27)
[2017-04-30] MEDS: DOCUSATE SODIUM 100 MG CAPSULE (FP) PO SCH (21:27)
[2017-04-30] MEDS: LATANOPROST 0.005% OPHTH SOLN 2.5ML BOTTLE OU SCH (21:28)
[2017-05-01] MEDS: LEVOFLOXACIN 250 MG TABLET (FP) PO SCH (05:57)
[2017-05-01 08:47] LABS: HEMATOCRIT 26.2 % (35.4-49); HEMOGLOBIN 8.3 GM/dL (11.7-16.9); MCH 30.4 pg (25.7-33.7); MCHC 31.5 g/dl (32.0-35.9); MEAN CELL VOLUME 96.4 fl (80-96); MEAN PLT VOLUME 8.9 fl (7.5-11.1); PLATELET COUNT 395 K/MM3 (134-434); RBC 2.72 M/mm3 (4.00-5.60); RDW 17.8 % (11.9-15.9); WHITE BLOOD COUNT 12.6 K/mm3 (4.0-10.0)
[2017-05-01 09:22] LABS: CHLORIDE 104 mmol/L (98-107); POTASSIUM 4.9 mmol/L (3.5-5.1); SODIUM 142 mmol/L (136-145)
[2017-05-01 09:28] LABS: ALBUMIN 2.1 g/dl (3.4-5.0); ALK PHOS 144 U/L (45-117); ANION GAP 6 (8-16); BILIRUBIN,TOTAL 0.5 mg/dL (0.2-1.0); BLOOD UREA NITROGEN 27 mg/dL (7-18); CALCIUM 8.2 mg/dL (8.5-10.1); CO2 32 mmol/L (21-32); CREATININE 1.4 mg/dL (0.7-1.3); GLUCOSE,RANDOM 188 mg/dL (74-106); SGOT/AST 31 U/L (15-37); SGPT/ALT 28 U/L (12-78); TOT PROT 6.2 g/dl (6.4-8.2)
--- NOTE | 2017-05-01 10:33 | PN ---
Progress Note, Physician Chief Complaint: s/p right femur removal of hardware with conversion to hemiarthroplasty History of Present Illness: NAD, no agitation at this time -calmer today -seen by Psychiatry -on zyprexa, -wrist restraints off Since AM -awaiting placement-SNF -Spo2 dropped off nasal o2 to 73%, is on 4l N/C -repeat CXR was negative - Current Medication List Current Medications: Active Medications Acetaminophen (Tylenol -) 650 mg PO Q6H PRN PRN Reason: FEVER Amlodipine Besylate (Norvasc -) 10 mg PO DAILY [facility] Last Admin: 04/30/17 10:28 Dose: 10 mg Bacitracin (Bacitracin -) 1 applic TP BID [facility] Last Admin: 04/30/17 21:27 Dose: 1 applic Brimonidine Tartrate ([place] 0.2% -) 1 drop OU DAILY [facility] Last Admin: 04/30/17 10:28 Dose: 1 drop Collagenase (Santyl -) 1 applic TP DAILY [facility] Last Admin: 04/30/17 10:31 Dose: 1 applic Docusate Sodium (Colace -) 300 mg PO HS [facility] Last Admin: 04/30/17 21:27 Dose: 300 mg Docusate Sodium (Colace Liquid -) 100 mg PO DAILY PRN PRN Reason: CONSTIPATION Last Admin: 04/28/17 10:53 Dose: 100 mg Dorzolamide HCl (Trusopt 2%) 1 drop OU BID [facility] Last Admin: 04/30/17 21:28 Dose: 1 drop Enoxaparin Sodium (Lovenox -) 30 mg SQ DAILY [facility] Last Admin: 04/30/17 10:28 Dose: 30 mg Ferrous Sulfate (Feosol -) 325 mg PO BID [facility] Last Admin: 04/30/17 21:27 Dose: 325 mg Latanoprost (Xalatan 0.005% Eye Drops -) 1 drop OU DAILY@1800 [facility] Last Admin: 04/30/17 21:28 Dose: 1 drop Levofloxacin (Levaquin -) 250 mg PO DAILY@0600 [facility] Last Admin: 05/01/17 05:57 Dose: 250 mg Olanzapine 5 mg/ Olanzapine 2. (5 mg) 7.5 mg PO BID [facility] Last Admin: 04/30/17 21:27 Dose: 7.5 mg Senna (Senna Oral Solution -) 8.8 mg PO HS [facility] Last Admin: 04/30/17 21:27 Dose: 8.8 mg Timolol Maleate (Timoptic 0.5%) 1 drop OU BID [facility] Last Admin: 04/30/17 21:28 Dose: 1 drop Trimethoprim/Sulfamethoxazole (Bactrim Ds -) 1 each PO BID [facility] Last Admin: 04/30/17 21:27 Dose: 1 each - Objective Vital Signs: Vital Signs Temperature 98.2 F 05/01/17 05:26 Pulse Rate 93 H 05/01/17 05:26 Respiratory Rate 18 05/01/17 05:26 Blood Pressure 136/65 05/01/17 05:26 O2 Sat by Pulse Oximetry (%) 95 04/30/17 20:46 Constitutional: Yes: Well Nourished, No Distress, Calm Cardiovascular: Yes: Regular Rate and Rhythm Respiratory: Yes: Regular Labs: CBC, BMP 05/01/17 08:00 05/01/17 08:00 INR, PTT INR 1.25 (0.82-1.09) H 04/15/17 10:52 Problem List - Problems (1) Anemia Assessment/Plan: -seen by Hematology -received PRBC 2 units -Iron, B 12- normal, -folate normal -A1c 5.5 -stool OB negative -Spep pending Code(s): D64.9 - ANEMIA, UNSPECIFIED Qualifiers: Other causes of anemia: chronic disease, other Qualified Code(s): D63.8 - Anemia in other chronic diseases classified elsewhere (2) Dementia Assessment/Plan: -seen by psychiatry and psychology -likely exacerbated secondary to anesthesia or pain meds -Zyprexa increased 7.5mg po BID by psychiatry -Caregivers to maintain safety precautions Code(s): F03.90 - UNSPECIFIED DEMENTIA WITHOUT BEHAVIORAL DISTURBANCE Qualifiers: Dementia type: Alzheimer's disease Dementia behavioral disturbance: with behavioral disturbance (3) Status post hip surgery Assessment/Plan: -pain management -tylenol for pain -colace and senna for constipation Code(s): Z98.890 - OTHER SPECIFIED POSTPROCEDURAL STATES (4) Altered mental status Code(s): R41.82 - ALTERED MENTAL STATUS, UNSPECIFIED Qualifiers: Altered mental status type: delirium Qualified Code(s): R41.0 - Disorientation, unspecified (5) Constipation Assessment/Plan: -colace, senna Code(s): K59.00 - CONSTIPATION, UNSPECIFIED Assessment/Plan see problem list DVT prophylaxis GI prophylaxis D/C to SNF
--- NOTE | 2017-05-01 10:52 | PN ---
Progress Note (short form) - Note Progress Note: Pt seen, s/p right hip jefferson, doing fine, progressing slowly with P.T. Rec only continued P.T., WBAT, and SNF placement.
[2017-05-01] MEDS: OLANZAPINE 5 MG, OLANZAPINE 2.5 MG PO SCH (10:56)
[2017-05-01] MEDS: amLODIPine BESYLATE 10 MG TABLET (FP) PO SCH (10:58)
[2017-05-01] MEDS: COLLAGENASE CLOSTRIDIUM HIST. 30 GRAMS TUBE TP SCH (10:58)
[2017-05-01] MEDS: ENOXAPARIN NA (PORCINE) 30 MG/0.3 ML DISP.SYRIN SQ SCH (10:59)
[2017-05-01] MEDS: BRIMONIDINE TARTRATE 0.2% OPHTHALMIC 5 ML BOTTLE OU SCH (10:59)
[2017-05-01] MEDS: BACITRACIN 15 GM TUBE TOPICAL OINTMENT TP SCH (10:59)
[2017-05-01] MEDS: FERROUS SO4 325 MG TABLET (FP) PO SCH (10:59)
[2017-05-01] MEDS: SULFAMETHOXAZOLE/TRIMETHOPRIM 800MG/160MG D.S. TABLET PO SCH (10:59)
[2017-05-01] MEDS: DORZOLAMIDE 2% HCL OPHTHALMIC SOLUTION 10 ML BOTTLE OU SCH (11:04)
[2017-05-01] MEDS: TIMOLOL 0.5% OPHTHALMIC SOL 5 ML BOTTLE OU SCH (11:04)
[2017-05-01 14:32] VITALS: TEMP 99.9
--- NOTE | 2017-05-01 14:38 | DS ---
Physical Examination Vital Signs: Vital Signs Temperature 99.9 F H 05/01/17 14:00 Pulse Rate 93 H 05/01/17 05:26 Respiratory Rate 18 05/01/17 05:26 Blood Pressure 136/65 05/01/17 05:26 O2 Sat by Pulse Oximetry (%) 95 04/30/17 20:46 Constitutional: Yes: Well Nourished, No Distress, Calm Cardiovascular: Yes: Regular Rate and Rhythm Respiratory: Yes: Regular Gastrointestinal: Yes: Normal Bowel Sounds, Soft Musculoskeletal: Yes: Muscle Weakness Edema: No Peripheral Pulses WNL: Yes Neurological: Yes: Alert, Pre-Existing Deficit Psychiatric: Yes: Alert Labs: CBC, BMP 05/01/17 08:00 05/01/17 08:00 Discharge Summary Reason For Visit: STATUS POST HIP SURGERY INABILITY TO AMBULATE Current Active Problems REBEKA (acute kidney injury) (Acute) Anemia (Acute) Constipation (Acute) Dementia (Acute) Inability to ambulate due to hip (Acute) Sacral decubitus ulcer, stage III (Acute) Status post hip surgery (Acute) Surgical complication (Acute) UTI (urinary tract infection) (Acute) UTI due to extended-spectrum beta lactamase (ESBL) producing Escherichia coli ( Acute) Hospital Course: The patient is a 86 year old male (poor historian), with a significant past medical history of Dementia and Glaucoma who presents to the emergency department with R hip pain for the past two weeks. Patient is accompanied by son who reports recent R hip surgery (15 days ago) in [facility] s/p fall. Since the procedure, patient has increased pain and has not been able to bear weight. Patient traveled [place] [facility] today and presents to the ED for further evaluation. Patient denies chest pain, headache or dizziness. Patient denies fever, chills, abdominal pain, nausea, vomit, diarrhea or constipation. Patient denies dysuria , frequency, urgency or hematuria. Patient denies sick contacts. Condition: Guarded - Instructions Referrals: Jodi Huerta MD [Primary Care Provider] - Disposition: [facility] F[facility] - Home Medications Comprehensive Discharge Medication List: Ambulatory Orders Amlodipine Besylate [Norvasc -] 10 mg PO DAILY 04/14/17 Brimonidine Tartrate [Alphagan 0.2% -] 1 drop OU DAILY 04/14/17 Dorzolamide HCl/Timolol Maleat [Cosopt Eye Drops] 10 ml OP DAILY 04/14/17 Olanzapine [Zyprexa -] 2.5 mg PO DAILY 04/14/17 Quetiapine Fumarate [Seroquel -] 25 mg PO HS 04/14/17 Travoprost [Travatan Z] 2.5 ml OP DAILY 04/14/17
--- NOTE | 2017-05-01 14:39 | PN ---
Progress Note, Physician History of Present Illness: Pt seen and examined at bedside. He is confused. - Current Medication List Current Medications: Active Medications Acetaminophen (Tylenol -) 650 mg PO Q6H PRN PRN Reason: FEVER Amlodipine Besylate (Norvasc -) 10 mg PO DAILY [facility] Last Admin: 05/01/17 10:58 Dose: 10 mg Bacitracin (Bacitracin -) 1 applic TP BID [facility] Last Admin: 05/01/17 10:59 Dose: 1 applic Brimonidine Tartrate (Alphagan 0.2% -) 1 drop OU DAILY [facility] Last Admin: 05/01/17 10:59 Dose: 1 drop Collagenase (Santyl -) 1 applic TP DAILY [facility] Last Admin: 05/01/17 10:58 Dose: 1 applic Docusate Sodium (Colace -) 300 mg PO HS [facility] Last Admin: 04/30/17 21:27 Dose: 300 mg Docusate Sodium (Colace Liquid -) 100 mg PO DAILY PRN PRN Reason: CONSTIPATION Last Admin: 04/28/17 10:53 Dose: 100 mg Dorzolamide HCl (Trusopt 2%) 1 drop OU BID [facility] Last Admin: 05/01/17 11:04 Dose: 1 drop Enoxaparin Sodium (Lovenox -) 30 mg SQ DAILY [facility] Last Admin: 05/01/17 10:59 Dose: 30 mg Ferrous Sulfate (Feosol -) 325 mg PO BID [facility] Last Admin: 05/01/17 10:59 Dose: 325 mg Latanoprost (Xalatan 0.005% Eye Drops -) 1 drop OU DAILY@1800 [facility] Last Admin: 04/30/17 21:28 Dose: 1 drop Levofloxacin (Levaquin -) 250 mg PO DAILY@0600 [facility] Last Admin: 05/01/17 05:57 Dose: 250 mg Olanzapine 5 mg/ Olanzapine 2. (5 mg) 7.5 mg PO BID [facility] Last Admin: 05/01/17 10:56 Dose: 7.5 mg Senna (Senna Oral Solution -) 8.8 mg PO HS [facility] Last Admin: 04/30/17 21:27 Dose: 8.8 mg Timolol Maleate (Timoptic 0.5%) 1 drop OU BID [facility] Last Admin: 05/01/17 11:04 Dose: 1 drop Trimethoprim/Sulfamethoxazole (Bactrim Ds -) 1 each PO BID [facility] Last Admin: 05/01/17 10:59 Dose: 1 each - Objective Vital Signs: Vital Signs Temperature 99.9 F H 05/01/17 14:00 Pulse Rate 93 H 05/01/17 05:26 Respiratory Rate 18 05/01/17 05:26 Blood Pressure 136/65 05/01/17 05:26 O2 Sat by Pulse Oximetry (%) 95 04/30/17 20:46 Constitutional: Yes: Anxious Eyes: Yes: Conjunctiva Clear HENT: Yes: Atraumatic Cardiovascular: Yes: S1, S2 Respiratory: Yes: On Nasal O2, Wheezes Gastrointestinal: Yes: Soft Genitourinary: Yes: Incontinence Musculoskeletal: Yes: Muscle Weakness Edema: No Neurological: Yes: Confusion Labs: CBC, BMP 05/01/17 08:00 05/01/17 08:00 INR, PTT INR 1.25 (0.82-1.09) H 04/15/17 10:52 Problem List - Problems (1) REBEKA (acute kidney injury) Code(s): N17.9 - ACUTE KIDNEY FAILURE, UNSPECIFIED (2) Inability to ambulate due to hip Code(s): R26.2 - DIFFICULTY IN WALKING, NOT ELSEWHERE CLASSIFIED (3) Status post hip surgery Code(s): Z98.890 - OTHER SPECIFIED POSTPROCEDURAL STATES (4) Dementia Code(s): F03.90 - UNSPECIFIED DEMENTIA WITHOUT BEHAVIORAL DISTURBANCE Qualifiers: Dementia type: Alzheimer's disease Dementia behavioral disturbance: with behavioral disturbance Assessment/Plan Current Medications Generic Name Dose Route Start Last Admin Trade Name Freq PRN Reason Stop Dose Admin Acetaminophen 650 mg 04/30/17 18:57 Tylenol - PO Q6H PRN FEVER Amlodipine Besylate 10 mg 04/16/17 10:00 05/01/17 10:58 Norvasc - PO 10 mg DAILY SHANDA Administration Bacitracin 1 applic 04/17/17 22:00 05/01/17 10:59 Bacitracin - TP 1 applic BID SHANDA Administration Brimonidine Tartrate 1 drop 04/16/17 10:00 05/01/17 10:59 Alphagan 0.2% - OU 1 drop DAILY SAHNDA Administration Collagenase 1 applic 04/28/17 16:30 05/01/17 10:58 Santyl - TP 1 applic DAILY SHANDA Administration Docusate Sodium 300 mg 04/19/17 22:00 04/30/17 21:27 Colace - PO 300 mg HS SHANDA Administration Docusate Sodium 100 mg 04/25/17 15:07 04/28/17 10:53 Colace Liquid - PO 100 mg DAILY PRN Administration CONSTIPATION Dorzolamide HCl 1 drop 04/15/17 22:00 05/01/17 11:04 Trusopt 2% OU 1 drop BID SHANDA Administration Enoxaparin Sodium 30 mg 04/16/17 10:00 05/01/17 10:59 Lovenox - SQ 30 mg DAILY SHANDA Administration Ferrous Sulfate 325 mg 04/19/17 22:00 05/01/17 10:59 Feosol - PO 325 mg BID SHANDA Administration Latanoprost 1 drop 04/15/17 18:00 04/30/17 21:28 Xalatan 0.005% Eye Drops - OU 1 drop DAILY@1800 SHANDA Administration Levofloxacin 250 mg 04/29/17 11:30 05/01/17 05:57 Levaquin - PO 250 mg DAILY@0600 SHANDA Administration Olanzapine 5 mg/ Olanzapine 2. 7.5 mg 04/28/17 22:30 05/01/17 10:56 5 mg PO 7.5 mg BID SHANDA Administration Senna 8.8 mg 04/21/17 22:00 04/30/17 21:27 Senna Oral Solution - PO 8.8 mg HS SHANDA Administration Timolol Maleate 1 drop 04/15/17 22:00 05/01/17 11:04 Timoptic 0.5% OU 1 drop BID SHANDA Administration Trimethoprim/Sulfamethoxazole 1 each 04/29/17 11:30 05/01/17 10:59 Bactrim Ds - PO 1 each BID SHANDA Administration Impression 1. REBEKA 2. hip fracture 3. htn 4. dementia 5. anemia 6. hypomagnesemia 7. iron deficiency Plan - renal function is worse today - cxr reviewed - check ua - will restart fluids - repeat labs in am - avoid nsaids and nephrotoxins Dr Rubi
[2017-05-01] MEDS ORDERED: SODIUM CHLORIDE 0.45% 1,000 ML IV SCH (14:45)
[2017-05-01 14:47] VITALS: BP 96/54; PULSE 66
== END 2017-05-01 18:55 | DRG 469 ==
LOC: JER 18:09 → JERBED 04-15 00:21 → J6S 04-15 09:38
PROVIDERS: ADMIT Family Medicine; ATTEND Family Medicine
PROC: 0SP904Z Removal of Internal Fixation Device from Right Hip Joint, Open Approach (ICD-10-PCS; 2017-04-15)
PROC: 0SRR0JZ Replacement of Right Hip Joint, Femoral Surface with Synthetic Substitute, Open Approach (ICD-10-PCS; principal; 2017-04-15 15:00)
PROC: 30233H1 Transfusion of Nonautologous Whole Blood into Peripheral Vein, Percutaneous Approach (ICD-10-PCS; 2017-04-16)
DX: M97.01XA Periprosthetic fracture around internal prosthetic right hip joint, initial encounter (principal); S72.8X1A Other fracture of right femur, initial encounter for closed fracture; G92 Toxic encephalopathy; N17.9 Acute kidney failure, unspecified; F03.91 Unspecified dementia, unspecified severity, with behavioral disturbance; D62 Acute posthemorrhagic anemia; N39.0 Urinary tract infection, site not specified; L89.153 Pressure ulcer of sacral region, stage 3; I10 Essential (primary) hypertension; H40.9 Unspecified glaucoma; T85.898A Other specified complication of other internal prosthetic devices, implants and grafts, initial encounter; W19.XXXA Unspecified fall, initial encounter; Y93.89 Activity, other specified; Y92.89 Other specified places as the place of occurrence of the external cause; Y99.8 Other external cause status; E83.42 Hypomagnesemia; Z78.1 Physical restraint status; B96.20 Unspecified Escherichia coli [E. coli] as the cause of diseases classified elsewhere
CPT/HCPCS: 36415; 36430; 36511; 71045-TC; 73502-TC-RT; 73523-TC; 80048; 80053; 81003; 82272; 82550; 82553; 82607; 82728; 82746; 82784; 83036; 83540; 83550; 83615; 83735; 84100; 84155; 84165; 84443; 85025; 85027; 85044; 85610; 85651; 86140; 86334; 86850; 86900; 86901; 86922; 87040; 87070; 87086; 87186; 87205; 88300-TC; 88305-TC; 88311-TC; 90670; 90688; 93005; 93010; 94760; 94761; 97116-GP; 97161-GP; 99285-25; G0008; G0009; J1756; P9038; P9058

== ENCOUNTER 2017-05-05 19:08 | Inpatient (IN) | payer OTHER ==
[2017-05-05] MEDS ORDERED: NOREPINEPHRINE BITARTRATE 4 MG/4 ML ML IV ONE (19:47)
--- NOTE | 2017-05-05 20:41 | PDOC ---
History of Present Illness - General Chief Complaint: Respiratory Distress Stated Complaint: RESPIRATORY DISTRESS Time Seen by Provider: 05/05/17 20:32 History Source: Retirement Records Exam Limitations: No Limitations - History of Present Illness Initial Comments: 05/05/17 22:37 86M with pmg of dementia, metabolic encephalopathy, sent from [facility] for hypoxia in the 70's. Patient was hypotensive in the ED satting in the 75's. 05/06/17 00:38 Past History - Past Medical History Allergies/Adverse Reactions: Allergies Allergy/AdvReac Type Severity Reaction Status Date / Time No Known Allergies Allergy Verified 05/05/17 19:47 Home Medications: Ambulatory Orders Amlodipine Besylate [Norvasc -] 10 mg PO DAILY 04/14/17 Brimonidine Tartrate [Alphagan 0.2% -] 1 drop OU DAILY 04/14/17 Dorzolamide HCl/Timolol Maleat [Cosopt Eye Drops] 10 ml OP DAILY 04/14/17 Olanzapine [Zyprexa -] 2.5 mg PO DAILY 04/14/17 Quetiapine Fumarate [Seroquel -] 25 mg PO HS 04/14/17 Travoprost [Travatan Z] 2.5 ml OP DAILY 04/14/17 Anemia: No Asthma: No Cancer: No Cardiac Disorders: No CVA: No COPD: No CHF: No Dementia: Yes Diabetes: No GI Disorders: No Disorders: No HTN: No Hypercholesterolemia: No Liver Disease: No Psychiatric Problems: Yes Seizures: No Thyroid Disease: No - Surgical History Abdominal Surgery: Yes (HERNIA) Appendectomy: No Cardiac Surgery: No Cholecystectomy: No Lung Surgery: No Neurologic Surgery: No Orthopedic Surgery: Yes (r hip surgery 03/2017) - Immunization History Immunization Up to Date: Yes - Suicide/Smoking/Psychosocial Hx Smoking History: Unknown if ever smoked Hx Alcohol Use: No Drug/Substance Use Hx: No Substance Use Type: Alcohol Hx Substance Use Treatment: No Review of Systems - Review of Systems Able to Perform ROS?: No *Physical Exam - Vital Signs Last Vital Signs Temp Pulse Resp BP Pulse Ox 114 H 14 66/38 88 L 05/05/17 19:47 05/05/17 19:44 05/05/17 19:47 05/05/17 19:47 - Physical Exam General Appearance: Yes: Cachetic Neck: negative: Tender Respiratory/Chest: positive: Labored Respiration, Rapid RR. negative: Chest Tender Cardiovascular: positive: Tachycardia, Irregularly Irregular Gastrointestinal/Abdominal: positive: Normal Bowel Sounds, Flat, Soft Procedures - Intubation Time of Intubation: 07:20 Intubation Method: orotracheal Blade used: Mac Tube Size (Fr): 7.0 Medications: Etomidate, Succinylcholine Tube position confirmed by: Direct visualization, CO2 detector, Chest x-ray, Breath sounds Breath Sounds after Intubation: equal Intubation Complications: no complications ED Treatment Course - LABORATORY CBC & Chemistry Diagram: 05/05/17 22:10 05/06/17 00:30 Medical Decision Making - Medical Decision Making 05/05/17 22:36 Patient flu positive. 05/06/17 00:51 Patient was promptly intubated and a central line was placed. 05/06/17 01:11 05/06/17 01:36 Norepi, versed iv and fentanyl for sedation Patient admitted for ICU *DC/Admit/Observation/Transfer Diagnosis at time of Disposition: Sepsis - Discharge Dispostion Admit: Yes - Referrals - Patient Instructions - Post Discharge Activity
[2017-05-05] MEDS ORDERED: SODIUM CHLORIDE 1,000 ML IV STA (20:45)
[2017-05-05] MEDS ORDERED: SODIUM CHLORIDE 0.9% 1000 ML INFUS.BAG IV STA (20:45)
[2017-05-05 21:41] LABS: ARTERIAL BLD GAS O2 SATURATION 98.9 % (90-98.9); ARTERIAL BLOOD GAS BASE EXCESS -7.2 meq/l (-2-2); ARTERIAL BLOOD GAS PCO2 43.2 mmHg (35-45); ARTERIAL BLOOD GAS pH 7.26 (7.35-7.45)
[2017-05-05 21:48] LABS: ALLENS TEST POSITIVE
--- NOTE | 2017-05-05 21:56 | PDOC ---
Attending Attestation - Resident Resident Name: Lionel Fofana - ED Attending Attestation I have performed the following: I have examined & evaluated the patient, The case was reviewed & discussed with the resident, I agree w/resident's findings & plan, Exceptions are as noted - Medical Decision Making 05/05/17 21:51 Pt seen/examined on arrival with Dr. Fofana, PGY1. Pt BIBEMS for increased work of breathing/SOB in NH, desaturation to 70s in field. On arrival, pt tachypneic , altered, not responding to commands, EMS was bagging patient, pt with pulse HR 110s. Pt intubated on arrival for respiratory failure, via DL wtih 7.[address] Fofana, first pass. BP in 60s/30s, HR 120s. L IJ central line placed, levophed gtt initiated after CXR reviewed. Fentanyl/versed gtt for sedation. CXR reviewed, ETT placement acceptable, CVP terminates in RA. 05/05/17 22:53 Influenza positive. Vanc/zosyn was initiated for presumed sepsis. Has received 3L IVF. H&H also low - Hgb 4.5, guaiac positive, brown stool. Will give protonix bolus and drip. Napier in place. Rectal temp 94.2, bear hugger placed for hypothermia.
[2017-05-05] MEDS ORDERED: EPINEPHrine/PF 1 MG/1 ML (1:1,000) AMPULE ONE (21:58)
--- NOTE | 2017-05-05 22:09 | HP ---
Admitting History and Physical - Primary Care Physician PCP: Heather Peres - Admission History of Present Illness: 05/05/17 21:51 86 y o male , came [place] [facility] with SOB at [place], desaturation to 70s. On arrival, pt tachypneic, altered, not responding to commands, EMS was bagging patient, pt with pulse HR 110s. Pt intubated on arrival for respiratory failure. - Past Medical History BEND UP: Yes: Dementia Cardiovascular: Yes: HTN Psych: Yes: Anxiety, Other - Smoking History Smoking history: Unknown if ever smoked - Alcohol/Substance Use Hx Alcohol Use: No Home Medications - Allergies Allergies/Adverse Reactions: Allergies Allergy/AdvReac Type Severity Reaction Status Date / Time No Known Allergies Allergy Verified 05/05/17 19:47 - Home Medications Home Medications: Ambulatory Orders Amlodipine Besylate [Norvasc -] 10 mg PO DAILY 04/14/17 Brimonidine Tartrate [Alphagan 0.2% -] 1 drop OU DAILY 04/14/17 Dorzolamide HCl/Timolol Maleat [Cosopt Eye Drops] 10 ml OP DAILY 04/14/17 Olanzapine [Zyprexa -] 2.5 mg PO DAILY 04/14/17 Quetiapine Fumarate [Seroquel -] 25 mg PO HS 04/14/17 Travoprost [Travatan Z] 2.5 ml OP DAILY 04/14/17 Physical Examination Vital Signs: Vital Signs Temperature Pulse Rate 114 H 05/05/17 19:47 Respiratory Rate 14 05/05/17 19:44 Blood Pressure 66/38 05/05/17 19:47 O2 Sat by Pulse Oximetry (%) 88 L 05/05/17 19:47 Constitutional: Yes: Calm HENT: Yes: Atraumatic Neck: Yes: Supple Cardiovascular: Yes: Regular Rate and Rhythm Respiratory: Yes: Rhonchi Gastrointestinal: Yes: Normal Bowel Sounds Extremities: Yes: WNL Neurological: Yes: Other (intubated) Problem List - Problems (1) Sepsis Assessment/Plan: iv abx ivf pressors if needed bcx cardio and id on board Code(s): A41.9 - SEPSIS, UNSPECIFIED ORGANISM (2) Altered mental status Assessment/Plan: due to sepsis Code(s): R41.82 - ALTERED MENTAL STATUS, UNSPECIFIED Qualifiers: (3) Dementia Code(s): F03.90 - UNSPECIFIED DEMENTIA WITHOUT BEHAVIORAL DISTURBANCE Qualifiers: Dementia type: Alzheimer's disease Dementia behavioral disturbance: with behavioral disturbance (4) Status post hip surgery Assessment/Plan: was in rehab pt eval when extubated Code(s): Z98.890 - OTHER SPECIFIED POSTPROCEDURAL STATES Assessment/Plan Laboratory Tests 05/05/17 21:30 Puncture Site Right brachial ABG pH 7.26 L ABG pCO2 at Pt Temp 43.2 ABG pO2 at Pt Temp 116.0 H ABG HCO3 18.7 L ABG O2 Sat (Measured) 98.9 ABG O2 Content 6.6 L* ABG Base Excess -7.2 L Jabari Test Positive O2 Delivery Device Vent Oxygen Flow Rate 50% Vent Rate 14 Mechanical Rate Yes PEEP 5.0 Pressure Support Vent 450 Active Medications Generic Name Dose Route Start Last Admin Trade Name Freq PRN Reason Stop Dose Admin Norepinephrine Bitartrate 4, 500 mls @ 75 mls/hr 05/05/17 20:15 05/06/17 10: 30 000 mcg/ Dextrose IV 14 mcg/min TITR SHANDA 105 mls/hr Protocol Titration 10 MCG/MIN Fentanyl 500 mcg/ Dextrose 100 mls @ 0 mls/hr 05/05/17 20:30 05/06/17 11:19 IVPB 13 mls/hr TITR SHANDA Administration Titrate Midazolam HCl 100 mg/ Sodium 100 mls @ 1 mls/hr 05/05/17 21:30 05/06/17 07:00 Chloride IVPB 2 mg/hr TITR SHANDA 2 mls/hr Protocol Titration 1 MG/HR Dextrose/Sodium Chloride 1,000 mls @ 75 mls/hr 05/05/17 22:15 05/05/17 23:20 D5-1/2ns - IV 75 mls/hr ASDIR SHANDA Administration Pantoprazole Sodium 80 mg/ 100 mls @ 10 mls/hr 05/05/17 23:45 05/06/17 09:45 Sodium Chloride IVPB 05/06/17 23:00 10 mls/hr Q10H SHANDA Administration 8 MG/HR Pantoprazole Sodium 160 mg/ 290 mls @ 14.5 mls/hr 05/06/17 14:00 Dextrose IVPB Q20H SHANDA Dextrose/Sodium Chloride 1,000 mls @ 75 mls/hr 05/06/17 12:00 D5-1/2ns - IV ASDIR SHANDA
[2017-05-05] MEDS ORDERED: DEXTROSE 5%-0.45% SALINE 1,000 ML IV SCH (22:15)
[2017-05-05 22:21] LABS: HEMATOCRIT 15.7 % (35.4-49); MCH 29.8 pg (25.7-33.7); MCHC 28.8 g/dl (32.0-35.9); MEAN CELL VOLUME 103.4 fl (80-96); MEAN PLT VOLUME 8.8 fl (7.5-11.1); PLATELET COUNT 431 K/MM3 (134-434); RBC 1.52 M/mm3 (4.00-5.60); RDW 18.6 % (11.9-15.9); WHITE BLOOD COUNT 23.8 K/mm3 (4.0-10.0)
[2017-05-05 22:25] LABS: VENOUS PO2 28.6 mmHg (28-48)
[2017-05-05 22:28] LABS: HEMOGLOBIN 4.5 GM/dL (11.7-16.9)
[2017-05-05 22:28] LABS: VENOUS PH 7.24 (7.32-7.42)
[2017-05-05] MEDS: FENTANYL INJECTION 500 MCG in DEXTROSE 5%-WATER - 90 ML IVPB SCH (22:30)
[2017-05-05] MEDS ORDERED: VANCOMYCIN 1,000 MG in DEXTROSE 5%-WATER - 250 ML IVPB ONE (22:33)
[2017-05-05 22:34] LABS: INR 1.61 (0.82-1.09); PROTHROMBIN TIME (PATIENT) 18.2 SEC (9.98-11.88)
[2017-05-05] MEDS ORDERED: OSELTAMIVIR PHOSPHATE 75 MG CAPSULE PO ONE (22:34)
[2017-05-05 22:37] LABS: ACTIVATED PTT 24.3 SECONDS (26.9-34.4)
[2017-05-05 22:45] LABS: ANISOCYTOSIS 1+; OVALOCYTE 1+
[2017-05-05 22:46] LABS: PLATELET ESTIMATE INCREASED
[2017-05-05] MEDS: NOREPINEPHRINE BITARTRATE 4,000 MCG in DEXTROSE 5%-WATER - 496 ML IV SCH (22:55)
[2017-05-05 22:57] LABS: ANION GAP 12 (8-16); BLOOD UREA NITROGEN 96 mg/dL (7-18); CALCIUM 7.2 mg/dL (8.5-10.1); CHLORIDE 114 mmol/L (98-107); CO2 21 mmol/L (21-32); CREATININE 2.8 mg/dL (0.7-1.3); POTASSIUM 5.3 mmol/L (3.5-5.1); SGOT/AST 19 U/L (15-37); SGPT/ALT 25 U/L (12-78); SODIUM 147 mmol/L (136-145)
[2017-05-05 22:59] LABS: BILIRUBIN,TOTAL 0.5 mg/dL (0.2-1.0); TOT PROT 5.4 g/dl (6.4-8.2)
[2017-05-05 23:01] LABS: ALK PHOS 120 U/L (45-117)
[2017-05-05] MEDS: MIDAZOLAM 100 MG in SODIUM CHLORIDE 100 ML IVPB SCH (23:07)
[2017-05-05 23:12] LABS: GLUCOSE,RANDOM 329 mg/dL (74-106)
[2017-05-05] MEDS ORDERED: VANCOMYCIN 1 GRAM (PRE-DOCKED) 1,000 MG/250 ML BAG IVPB ONE (23:14)
[2017-05-05] MEDS ORDERED: PANTOPRAZOLE SODIUM 40 MG VIAL IVPUSH ONE (23:35)
--- NOTE | 2017-05-05 23:40 | CONSULT ---
Consult - text type - Consultation Consultation Note: PULM/CCM Pt seen and examined in ICU CC: AMS, resp failure, septic shock HPI: Briefly Mr Stallworth is an 86 y/o man with hx of dementia, HTN, depression who was brought in by EMS from [place] this evening in setting of AMS, hypoxia, and septic shock. Pt was recently discharged on 05/01 from this facility after f/u visit after hip fx repair on 04/15 (initial surgery was done in [facility]?). Pt was non-responsive, hypotensive to 60/40, SPo2 70s. Pt was intubated and sedated. BP remained low, despite fluid resuscitation. Central line was placed and pt started on levophed. Labs notable for influenza A + of resp viral panel, hgb 4.5 down from 8 (guiac - dark stool), Cr 2.8 up from baseline 1.4, lactate 6. . He was started on broad spectrum abx. Of note Pt had wound/intra-op cxl positive for ESBL Kleb and MRSA. He received Vanco only in ED. Cxl were sent. UA with R>W, +LE. . CT head performed, read pending. 2 PRBC given. PPI gtt started (stool guiac neg but ED staff felt was + clinically). CXR was unrevealing. Exam of R hip was unrevealing. Pt transferred to ICU for further care. Ambulatory Orders Amlodipine Besylate [Norvasc -] 10 mg PO DAILY 04/14/17 Brimonidine Tartrate [Alphagan 0.2% -] 1 drop OU DAILY 04/14/17 Dorzolamide HCl/Timolol Maleat [Cosopt Eye Drops] 10 ml OP DAILY 04/14/17 Olanzapine [Zyprexa -] 2.5 mg PO DAILY 04/14/17 Quetiapine Fumarate [Seroquel -] 25 mg PO HS 04/14/17 Travoprost [Travatan Z] 2.5 ml OP DAILY 04/14/17 Active Medications Norepinephrine Bitartrate 4, (000 mcg/ Dextrose) 500 mls @ 75 mls/hr IV TITR SHANDA; 10 MCG/MIN PRN Reason: Protocol Last Admin: 05/05/17 22:55 Dose: 10 mcg/min, 75 mls/hr Fentanyl 500 mcg/ Dextrose 100 mls @ 0 mls/hr IVPB TITR SHANDA PRN Reason: Titrate Last Admin: 05/05/17 22:30 Dose: 4 mls/hr Midazolam HCl 100 mg/ Sodium (Chloride) 100 mls @ 1 mls/hr IVPB TITR SHANDA; 1 MG/ HR PRN Reason: Protocol Last Admin: 05/05/17 23:07 Dose: 1 mg/hr, 1 mls/hr Dextrose/Sodium Chloride (D5-1/2ns -) 1,000 mls @ 75 mls/hr IV ASDIR SHANDA Last Admin: 05/05/17 23:20 Dose: 75 mls/hr Pantoprazole Sodium 80 mg/ (Sodium Chloride) 100 mls @ 10 mls/hr IVPB Q10H SHANDA PRN Reason: 8 MG/HR CBCD WBC 23.8 K/mm3 (4.0-10.0) H D 05/05/17 22:10 RBC 1.52 M/mm3 (4.00-5.60) L D 05/05/17 22:10 Hgb 4.5 GM/dL (11.7-16.9) L* D 05/05/17 22:10 Hct 15.7 % (35.4-49) L D 05/05/17 22:10 MCV 103.4 fl (80-96) H D 05/05/17 22:10 MCHC 28.8 g/dl (32.0-35.9) L 05/05/17 22:10 RDW 18.6 % (11.9-15.9) H 05/05/17 22:10 Plt Count 431 K/MM3 (134-434) 05/05/17 22:10 MPV 8.8 fl (7.5-11.1) 05/05/17 22:10 CMP Sodium 147 mmol/L (136-145) H 05/05/17 22:10 Potassium 5.3 mmol/L (3.5-5.1) H 05/05/17 22:10 Chloride 114 mmol/L (98-107) H 05/05/17 22:10 Carbon Dioxide 21 mmol/L (21-32) D 05/05/17 22:10 Anion Gap 12 (8-16) 05/05/17 22:10 BUN 96 mg/dL (7-18) H D 05/05/17 22:10 Creatinine 2.8 mg/dL (0.7-1.3) H D 05/05/17 22:10 Creat Clearance w eGFR 21.54 (>60) 05/05/17 22:10 Random Glucose 329 mg/dL (74-106) H* D 05/05/17 22:10 Calcium 7.2 mg/dL (8.5-10.1) L 05/05/17 22:10 Total Bilirubin 0.5 mg/dL (0.2-1.0) 05/05/17 22:10 AST 19 U/L (15-37) D 05/05/17 22:10 ALT 25 U/L (12-78) 05/05/17 22:10 Alkaline Phosphatase 120 U/L (45-117) H 05/05/17 22:10 Total Protein 5.4 g/dl (6.4-8.2) L 05/05/17 22:10 Albumin 2.0 g/dl (3.4-5.0) L 05/05/17 22:10 CARDIAC ENZYMES Creatine Kinase 45 IU/L (39-308) 05/05/17 22:10 Troponin I 0.09 ng/ml (0.00-0.05) H D 05/05/17 22:10 Urine Test Results Urine Color Yellow 05/06/17 02:18 Urine Appearance Cloudy 05/06/17 02:18 Urine pH 5.0 (5.0-8.0) 05/06/17 02:18 Ur Specific Reading 1.017 (1.001-1.035) 05/06/17 02:18 Urine Protein Negative (NEGATIVE) 05/06/17 02:18 Urine Glucose (UA) 1+ (NEGATIVE) H 05/06/17 02:18 Urine Ketones Negative (NEGATIVE) 05/06/17 02:18 Urine Blood 2+ (NEGATIVE) H 05/06/17 02:18 Urine Nitrite Negative (NEGATIVE) 05/06/17 02:18 Urine Bilirubin Negative (NEGATIVE) 05/06/17 02:18 Ur Leukocyte Esterase 1+ (NEGATIVE) H 05/06/17 02:18 Ur Epithelial Cells Rare /HPF (FEW) 05/06/17 02:18 Urine Bacteria Rare /hpf (NONE SEEN) 05/06/17 02:18 Urine Mucus Rare 05/06/17 02:18 Past Medical History 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 Unk date of original surgery. Smoking History Smoking history Unknown if ever smoked Alcohol/Substance Use Hx Alcohol Use No Social History Usual Living Arrangement With Child, currently in [place] Pt resides primarily in [facility], recent travel from there. ROS: unable due to clinical condition Vital Signs Temp 96.8 F L 05/06/17 01:53 Pulse 119 H 05/06/17 01:53 Resp 14 05/06/17 03:30 BP 105/48 05/06/17 01:53 Pulse Ox 91 L 05/06/17 01:53 Intake & Output 05/05/17 05/05/17 05/06/17 11:59 23:59 11:59 Weight 63.503 kg 55.656 kg Other: Voiding Method Indwelling Catheter Indwelling Catheter Height 5 ft 6 in 5 ft 6 in Body Mass Index (BMI) 22.6 19.8 Weight Measurement Method [facility] in [facility] Weight Measurement Method Estimated by Staff PE: Gen: elderly, frail man, sedated, intubated HEENT: PERRL at 2mm, + cough/gag to deep suction, + JVD while flat PULM: clear bilaterally , n wheezes CV; tachy, regular, no m/r/g appreciated ABD: soft, NT, ND, hypoactive bs EXT: weak LE pulses present bilaterally, no edema, cool Neuro: deeply sedated, poorly responsive, corneal intact CT head reviewed, no bleed, volume loss, read pending EKG: afib RVR, RBB A/ septic shock REBEKA acute resp failure lactic acidosis altered mentation afib RVR P/ -full vent support, wean as tolerated -minimize sedation given age and debility -2PRBC, repeat CBC after -cont protonix gtt for now, if does not respond to transfusion or cynthia melena/ BRBPR then GI consult -follow lactate, improving with volume resus -broad spectrum abx to cover previous organisms (R ESBL kleb, MRSA), given vanco in ED will add dose of Ertapenem -once blood and volume resuscitated can consider rate control for RVR with Amio -unable to anticoagulate with acute anemia, SCD -monitor for Renal replacement needs, would favor against, given debility and advanced age -Goals of care discussion Kwasi George ACNP 9200 35min CCT
[2017-05-06 01:09] LABS: ALBUMIN 1.9 g/dl (3.4-5.0); ALK PHOS 112 U/L (45-117); ANION GAP 11 (8-16); BILIRUBIN,TOTAL 0.5 mg/dL (0.2-1.0); CALCIUM 7.2 mg/dL (8.5-10.1); CHLORIDE 111 mmol/L (98-107); CO2 23 mmol/L (21-32); CREATININE 2.9 mg/dL (0.7-1.3); POTASSIUM 5.4 mmol/L (3.5-5.1); SGOT/AST 24 U/L (15-37); SGPT/ALT 27 U/L (12-78); SODIUM 145 mmol/L (136-145); TOT PROT 5.1 g/dl (6.4-8.2)
[2017-05-06 01:14] LABS: BLOOD UREA NITROGEN 105 mg/dL (7-18); GLUCOSE,RANDOM 437 mg/dL (74-106)
[2017-05-06] MEDS ORDERED: fentaNYL CITRATE 250 MCG/5 ML VIAL ONE ×2 (01:30→19:55)
[2017-05-06 02:17] VITALS: BMI 19.8
[2017-05-06 03:07] LABS: URINE APPEARANCE CLOUDY; URINE BILIRUBIN NEGATIVE (NEGATIVE); URINE BLOOD 2+ (NEGATIVE); URINE COLOR YELLOW; URINE GLUCOSE (UA) 1+ (NEGATIVE); URINE KETONE NEGATIVE (NEGATIVE); URINE NITRITE NEGATIVE (NEGATIVE); URINE PROTEIN NEGATIVE (NEGATIVE); URINE UROBILINOGEN NEGATIVE mg/dL (0.2-1.0)
[2017-05-06 03:10] LABS: URINE LEUK ESTERASE 1+ (NEGATIVE)
[2017-05-06 03:14] LABS: EPI CELLS RARE /HPF (FEW); URINE BACTERIA RARE /hpf (NONE SEEN); URINE HYALINE CAST 24 /lpf; URINE MUCUS RARE
[2017-05-06] MEDS ORDERED: ERTAPENEM SODIUM 1 GM/50 ML PRE-DOCKED IVPB STA (05:28)
[2017-05-06] MEDS ORDERED: ERTAPENEM SODIUM 1 GM in SODIUM CHLORIDE 100 ML IVPB ONE (06:00)
[2017-05-06] MEDS: PANTOPRAZOLE SODIUM 80 MG in SODIUM CHLORIDE 100 ML IVPB SCH ×2 (06:28→09:45)
[2017-05-06] MEDS: FENTANYL INJECTION 500 MCG in DEXTROSE 5%-WATER - 90 ML IVPB SCH ×4 (07:00→21:37)
--- NOTE | 2017-05-06 07:42 | PN ---
Progress Note (short form) - Note Progress Note: Chief Complaint: Events noted, notes reviewed, intubated and sedated, no distress, in atrial fibrillation with rapid ventricular History of Present Illness: Seen and examined in the ICU. Full consult dictated On pressors with Norepinephrine - Current Medication List Current Medications: Current Medications Norepinephrine Bitartrate 4, (000 mcg/ Dextrose) 500 mls @ 75 mls/hr IV TITR SHANDA; 10 MCG/MIN PRN Reason: Protocol Last Admin: 05/05/17 22:55 Dose: 10 mcg/min, 75 mls/hr Fentanyl 500 mcg/ Dextrose 100 mls @ 0 mls/hr IVPB TITR SHANDA PRN Reason: Titrate Last Admin: 05/05/17 22:30 Dose: 4 mls/hr Midazolam HCl 100 mg/ Sodium (Chloride) 100 mls @ 1 mls/hr IVPB TITR SHANDA; 1 MG/ HR PRN Reason: Protocol Last Admin: 05/05/17 23:07 Dose: 1 mg/hr, 1 mls/hr Dextrose/Sodium Chloride (D5-1/2ns -) 1,000 mls @ 75 mls/hr IV ASDIR SHANDA Last Admin: 05/05/17 23:20 Dose: 75 mls/hr Pantoprazole Sodium 80 mg/ (Sodium Chloride) 100 mls @ 10 mls/hr IVPB Q10H SHANDA PRN Reason: 8 MG/HR Last Admin: 05/06/17 06:28 Dose: 10 mls/hr Review of Systems Unable to Obtain - Objective Vital Signs: Last Vital Signs Temp Pulse Resp BP Pulse Ox 98.2 F 103 H 14 103/64 91 L 05/06/17 06:19 05/06/17 06:19 05/06/17 06:30 05/06/17 06:19 05/06/17 01:53 Intake & Output 05/03/17 05/04/17 05/05/17 05/06/17 23:59 23:59 23:59 23:59 Intake Total 1865 Output Total 25 Balance 1840 Weight 140 lb 122 lb 3.2 oz Neck: Supple Negative JVD Cardiovascular: S1 S2 Irregularly Irregular Grade 1-2/6 SM Respiratory: Diminished Breath Sounds with Bilateral Scattered Rhonchi Gastrointestinal: Soft Benign Normal Bowel Sounds Extremities: Negative Edema Labs: Troponin, BNP 05/05/17 22:10 Troponin I 0.09 H D CBC, BMP 05/05/17 22:10 05/06/17 00:30 Hepatic Panel Total Bilirubin 0.5 mg/dL (0.2-1.0) 05/06/17 00:30 AST 24 U/L (15-37) D 05/06/17 00:30 ALT 27 U/L (12-78) 05/06/17 00:30 Alkaline Phosphatase 112 U/L (45-117) 05/06/17 00:30 Albumin 1.9 g/dl (3.4-5.0) L 05/06/17 00:30 Assessment/Plan ASSESSMENT: 1. Acute respiratory failure, septic shock with lactic acidosis 2. CAD with evidence of demand ischemic injury, angina pectoris 3. Diastolic LV dysfunction with class 0-I nNYHA classification LV failure, compensated/hypovolemic 4. Profound anemia, source to be determined, post transfusion 5. Acute on chronic kidney disease 6. Hyperglycemia/DM 7. History of HTN, currently hypotensive/septic shock 8. Hyperkalemia PLAN: 1. Antibiotics as per the primary team 2. Pressors to maintain MAP > 65 and attempt to wean off as tolerated 3. Correction of Hyperkalemia 4. Correction of Hyperglycemia 5. Monitor Hg and transfuse as needed maintaining Hg equal or > 8.0 6. Echocardiography to evaluate LV size and function 7. Ventilator management as per the ICU team Doron laguerre MD
[2017-05-06] MEDS: NOREPINEPHRINE BITARTRATE 4,000 MCG in DEXTROSE 5%-WATER - 496 ML IV SCH ×5 (07:50→21:36)
[2017-05-06 09:01] LABS: HEMATOCRIT 23.2 % (35.4-49); HEMOGLOBIN 7.5 GM/dL (11.7-16.9); MCH 30.5 pg (25.7-33.7); MCHC 32.5 g/dl (32.0-35.9); MEAN CELL VOLUME 93.9 fl (80-96); PLATELET COUNT 366 K/MM3 (134-434); RBC 2.47 M/mm3 (4.00-5.60); RDW 17.8 % (11.9-15.9); WHITE BLOOD COUNT 21.1 K/mm3 (4.0-10.0)
[2017-05-06 09:03] LABS: CHLORIDE 106 mmol/L (98-107); POTASSIUM 5.3 mmol/L (3.5-5.1); SODIUM 140 mmol/L (136-145)
[2017-05-06 09:28] LABS: ALK PHOS 120 U/L (45-117); ANION GAP 12 (8-16); BILIRUBIN,TOTAL 0.6 mg/dL (0.2-1.0); BLOOD UREA NITROGEN 98 mg/dL (7-18); CALCIUM 7.3 mg/dL (8.5-10.1); CO2 22 mmol/L (21-32); CREATININE 2.6 mg/dL (0.7-1.3); SGOT/AST 45 U/L (15-37); SGPT/ALT 28 U/L (12-78); TOT PROT 5.4 g/dl (6.4-8.2)
[2017-05-06 09:58] LABS: GLUCOSE,RANDOM 490 mg/dL (74-106)
[2017-05-06] MEDS ORDERED: INSULIN SLIDING SCALE (NOVOLOG) 1 VIAL SQ SCH (11:00)
[2017-05-06] MEDS: DEXTROSE 5%-0.45% SALINE 1,000 ML IV SCH (12:00)
--- NOTE | 2017-05-06 12:09 | PN ---
Teaching Attending Note Name of Resident: Gabriel Goff ATTENDING PHYSICIAN STATEMENT I saw and evaluated the patient. I reviewed the resident's note and discussed the case with the resident. I agree with the resident's findings and plan as documented. SUBJECTIVE: Patient seen and examined in the ICU. Remains intubated and sedated. AC mode of vent. NE for hemodynamic support. CT: (?) New bilateral SDH Intake & Output 05/03/17 05/04/17 05/05/17 05/06/17 23:59 23:59 23:59 23:59 Intake Total 1865 Output Total 25 Balance 1840 Weight 140 lb 122 lb 3.2 oz Last Vital Signs Temp Pulse Resp BP Pulse Ox 98.8 F 121 H 14 94/66 97 05/06/17 10:00 05/06/17 10:30 05/06/17 10:00 05/06/17 10:30 05/06/17 10:00 Active Medications Norepinephrine Bitartrate 4, (000 mcg/ Dextrose) 500 mls @ 75 mls/hr IV TITR SHANDA; 10 MCG/MIN PRN Reason: Protocol Last Titration: 05/06/17 10:30 Dose: 14 mcg/min, 105 mls/hr Fentanyl 500 mcg/ Dextrose 100 mls @ 0 mls/hr IVPB TITR SHANDA PRN Reason: Titrate Last Admin: 05/06/17 11:19 Dose: 13 mls/hr Midazolam HCl 100 mg/ Sodium (Chloride) 100 mls @ 1 mls/hr IVPB TITR SHANDA; 1 MG/ HR PRN Reason: Protocol Last Titration: 05/06/17 07:00 Dose: 2 mg/hr, 2 mls/hr Dextrose/Sodium Chloride (D5-1/2ns -) 1,000 mls @ 75 mls/hr IV ASDIR SHANDA Last Admin: 05/05/17 23:20 Dose: 75 mls/hr Pantoprazole Sodium 80 mg/ (Sodium Chloride) 100 mls @ 10 mls/hr IVPB Q10H SHANDA PRN Reason: 8 MG/HR Stop: 05/06/17 23:00 Last Admin: 05/06/17 09:45 Dose: 10 mls/hr Pantoprazole Sodium 160 mg/ (Dextrose) 290 mls @ 14.5 mls/hr IVPB Q20H SHANDA Dextrose/Sodium Chloride (D5-1/2ns -) 1,000 mls @ 75 mls/hr IV ASDIR SHANDA Gen: elderly, frail man, sedated, intubated HEENT: PERRL at 2mm PULM: scattered bilateral rhonchi, no wheezes CV; tachy, regular, no m/r/g appreciated ABD: soft, NT, ND, hypoactive bs EXT: weak LE pulses present bilaterally, no edema, cool Neuro: deeply sedated, poorly responsive, corneal intact Laboratory Results - last 24 hr 05/05/17 05/05/17 05/05/17 21:30 22:08 22:10 WBC 23.8 H D RBC 1.52 L D Hgb 4.5 L* D Hct 15.7 L D MCV 103.4 H D MCH 29.8 MCHC 28.8 L RDW 18.6 H Plt Count 431 MPV 8.8 Total Counted 100 Neutrophils % No Result Required. Neutrophils % (Manual) 93.0 H* Band Neutrophils % 2.0 Lymphocytes % No Result Required. Lymphocytes % (Manual) 3.0 L Monocytes % (Manual) 2 L Hypochromia 2+ Platelet Estimate Increased Platelet Comment No clumping noted Polychromasia 1+ Basophilic Stippling 1+ Anisocytosis 1+ Microcytosis 1+ Ovalocytes 1+ PT with INR INR PTT (Actin FS) Puncture Site Right brachial ABG pH 7.26 L ABG pCO2 at Pt Temp 43.2 ABG pO2 at Pt Temp 116.0 H ABG HCO3 18.7 L ABG O2 Sat (Measured) 98.9 ABG O2 Content 6.6 L* ABG Base Excess -7.2 L Jabari Test Positive VBG pH POC VBG pCO2 POC VBG pO2 Mixed VBG HCO3 O2 Delivery Device Vent Oxygen Flow Rate 50% Vent Rate 14 Mechanical Rate Yes PEEP 5.0 Pressure Support Vent 450 Sodium Potassium Chloride Carbon Dioxide Anion Gap BUN Creatinine Creat Clearance w eGFR Random Glucose Lactic Acid Calcium Total Bilirubin AST ALT Alkaline Phosphatase Creatine Kinase Troponin I Total Protein Albumin Urine Color Urine Appearance Urine pH Ur Specific [place] Urine Protein Urine Glucose (UA) Urine Ketones Urine Blood Urine Nitrite Urine Bilirubin Urine Urobilinogen Ur Leukocyte Esterase Urine WBC (Auto) Urine RBC (Auto) Ur Epithelial Cells Urine Bacteria Hyaline Casts Urine Mucus Stool Occult Blood Negative Blood Type Antibody Screen Crossmatch 05/05/17 05/05/17 05/05/17 22:10 22:10 22:10 WBC RBC Hgb Hct MCV MCH MCHC RDW Plt Count MPV Total Counted Neutrophils % Neutrophils % (Manual) Band Neutrophils % Lymphocytes % Lymphocytes % (Manual) Monocytes % (Manual) Hypochromia Platelet Estimate Platelet Comment Polychromasia Basophilic Stippling Anisocytosis Microcytosis Ovalocytes PT with INR 18.20 H INR 1.61 H PTT (Actin FS) 24.3 L Puncture Site ABG pH ABG pCO2 at Pt Temp ABG pO2 at Pt Temp ABG HCO3 ABG O2 Sat (Measured) ABG O2 Content ABG Base Excess Jabari Test VBG pH POC VBG pCO2 POC VBG pO2 Mixed VBG HCO3 O2 Delivery Device Oxygen Flow Rate Vent Rate Mechanical Rate PEEP Pressure Support Vent Sodium 147 H Potassium 5.3 H Chloride 114 H Carbon Dioxide 21 D Anion Gap 12 BUN 96 H D Creatinine 2.8 H D Creat Clearance w eGFR 21.54 Random Glucose 329 H* D Lactic Acid Calcium 7.2 L Total Bilirubin 0.5 AST 19 D ALT 25 Alkaline Phosphatase 120 H Creatine Kinase 45 Troponin I 0.09 H D Total Protein 5.4 L Albumin 2.0 L Urine Color Urine Appearance Urine pH Ur Specific [place] Urine Protein Urine Glucose (UA) Urine Ketones Urine Blood Urine Nitrite Urine Bilirubin Urine Urobilinogen Ur Leukocyte Esterase Urine WBC (Auto) Urine RBC (Auto) Ur Epithelial Cells Urine Bacteria Hyaline Casts Urine Mucus Stool Occult Blood Blood Type B POSITIVE Antibody Screen Negative Crossmatch See Detail 05/05/17 05/05/17 05/06/17 22:20 22:20 00:30 WBC RBC Hgb Hct MCV MCH MCHC RDW Plt Count MPV Total Counted Neutrophils % Neutrophils % (Manual) Band Neutrophils % Lymphocytes % Lymphocytes % (Manual) Monocytes % (Manual) Hypochromia Platelet Estimate Platelet Comment Polychromasia Basophilic Stippling Anisocytosis Microcytosis Ovalocytes PT with INR INR PTT (Actin FS) Puncture Site ABG pH ABG pCO2 at Pt Temp ABG pO2 at Pt Temp ABG HCO3 ABG O2 Sat (Measured) ABG O2 Content ABG Base Excess Jabari Test VBG pH 7.24 L* POC VBG pCO2 49.0 POC VBG pO2 28.6 Mixed VBG HCO3 20.3 O2 Delivery Device Oxygen Flow Rate Vent Rate Mechanical Rate PEEP Pressure Support Vent Sodium 145 Potassium 5.4 H Chloride 111 H Carbon Dioxide 23 Anion Gap 11 BUN 105 H* Creatinine 2.9 H Creat Clearance w eGFR 20.69 Random Glucose 437 H* D Lactic Acid 4.5 H* Calcium 7.2 L Total Bilirubin 0.5 AST 24 D ALT 27 Alkaline Phosphatase 112 Creatine Kinase Troponin I Total Protein 5.1 L Albumin 1.9 L Urine Color Urine Appearance Urine pH Ur Specific [place] Urine Protein Urine Glucose (UA) Urine Ketones Urine Blood Urine Nitrite Urine Bilirubin Urine Urobilinogen Ur Leukocyte Esterase Urine WBC (Auto) Urine RBC (Auto) Ur Epithelial Cells Urine Bacteria Hyaline Casts Urine Mucus Stool Occult Blood Blood Type Antibody Screen Crossmatch 05/06/17 05/06/17 05/06/17 02:18 02:30 06:00 WBC RBC Hgb Hct MCV MCH MCHC RDW Plt Count MPV Total Counted Neutrophils % Neutrophils % (Manual) Band Neutrophils % Lymphocytes % Lymphocytes % (Manual) Monocytes % (Manual) Hypochromia Platelet Estimate Platelet Comment Polychromasia Basophilic Stippling Anisocytosis Microcytosis Ovalocytes PT with INR INR PTT (Actin FS) Puncture Site ABG pH ABG pCO2 at Pt Temp ABG pO2 at Pt Temp ABG HCO3 ABG O2 Sat (Measured) ABG O2 Content ABG Base Excess Jabari Test VBG pH POC VBG pCO2 POC VBG pO2 Mixed VBG HCO3 O2 Delivery Device Oxygen Flow Rate Vent Rate Mechanical Rate PEEP Pressure Support Vent Sodium 140 Potassium 5.3 H Chloride 106 Carbon Dioxide 22 Anion Gap 12 BUN 98 H Creatinine 2.6 H Creat Clearance w eGFR 23.47 Random Glucose 490 H* Lactic Acid 1.7 Calcium 7.3 L Total Bilirubin 0.6 AST 45 H D ALT 28 Alkaline Phosphatase 120 H Creatine Kinase Troponin I Total Protein 5.4 L Albumin 2.0 L Urine Color Yellow Urine Appearance Cloudy Urine pH 5.0 Ur Specific [place] 1.017 Urine Protein Negative Urine Glucose (UA) 1+ H Urine Ketones Negative Urine Blood 2+ H Urine Nitrite Negative Urine Bilirubin Negative Urine Urobilinogen Negative Ur Leukocyte Esterase 1+ H Urine WBC (Auto) 19 Urine RBC (Auto) 34 Ur Epithelial Cells Rare Urine Bacteria Rare Hyaline Casts 24 Urine Mucus Rare Stool Occult Blood Blood Type Antibody Screen Crossmatch 05/06/17 05/06/17 06:00 06:00 WBC 21.1 H RBC 2.47 L D Hgb 7.5 L D Hct 23.2 L D MCV 93.9 D MCH 30.5 MCHC 32.5 RDW 17.8 H Plt Count 366 MPV 9.0 Total Counted Neutrophils % No Result Required. Neutrophils % (Manual) Band Neutrophils % Lymphocytes % No Result Required. Lymphocytes % (Manual) Monocytes % (Manual) Hypochromia Platelet Estimate Platelet Comment Polychromasia Basophilic Stippling Anisocytosis Microcytosis Ovalocytes PT with INR INR PTT (Actin FS) Puncture Site ABG pH ABG pCO2 at Pt Temp ABG pO2 at Pt Temp ABG HCO3 ABG O2 Sat (Measured) ABG O2 Content ABG Base Excess Jabari Test VBG pH POC VBG pCO2 POC VBG pO2 Mixed VBG HCO3 O2 Delivery Device Oxygen Flow Rate Vent Rate Mechanical Rate PEEP Pressure Support Vent Sodium Potassium Chloride Carbon Dioxide Anion Gap BUN Creatinine Creat Clearance w eGFR Random Glucose Lactic Acid 1.4 Calcium Total Bilirubin AST ALT Alkaline Phosphatase Creatine Kinase Troponin I Total Protein Albumin Urine Color Urine Appearance Urine pH Ur Specific [place] Urine Protein Urine Glucose (UA) Urine Ketones Urine Blood Urine Nitrite Urine Bilirubin Urine Urobilinogen Ur Leukocyte Esterase Urine WBC (Auto) Urine RBC (Auto) Ur Epithelial Cells Urine Bacteria Hyaline Casts Urine Mucus Stool Occult Blood Blood Type Antibody Screen Crossmatch IMP: Acute Respiratory Failure Septic shock source to be determined REBEKA lactic acidosis altered mentation AFib RVR GI bleed -full vent support -minimize sedation given age and debility -Normal transfusion thresholds -Protonix drip -Broad spectrum ABX / ID evaluation -Rate control -Due to severe anemia, will hold on Anticoagulation -Strict I & O -Follow cultures -Should have GOC with family Dr Dorado Critical care time spent in reviewing chart, evaluating patient and formulating plan - 36 minutes.
--- NOTE | 2017-05-06 12:13 | PN ---
Physical Exam: SUBJECTIVE: Patient seen and examined in ICU. Patient intubated/sedated/on pressors. Vent Settings- Rate 14, TV 450, FIO2 50%, PEEP 5 OBJECTIVE: Vital Signs Period Temp Pulse Resp BP Sys/[place] Pulse Ox Last 24 Hr 94.2 F-98.8 F 18-128 14-18 66-115/38-87 83-100 Gen: elderly, frail man, sedated, intubated HEENT: PERRL,+ cough/gag to deep suction, PULM: clear to auscultation bilaterally , no wheezes, CV; tachycardic, s1, s2, regular rhythm, no m/r/g appreciated ABD: soft, NT, ND, normal bowel sounds EXT: no edema, 2+ pulses Neuro: Sedated, Intubated Laboratory Results - last 24 hr 05/05/17 05/05/17 05/05/17 21:30 22:08 22:10 WBC 23.8 H D RBC 1.52 L D Hgb 4.5 L* D Hct 15.7 L D MCV 103.4 H D MCH 29.8 MCHC 28.8 L RDW 18.6 H Plt Count 431 MPV 8.8 Total Counted 100 Neutrophils % No Result Required. Neutrophils % (Manual) 93.0 H* Band Neutrophils % 2.0 Lymphocytes % No Result Required. Lymphocytes % (Manual) 3.0 L Monocytes % (Manual) 2 L Hypochromia 2+ Platelet Estimate Increased Platelet Comment No clumping noted Polychromasia 1+ Basophilic Stippling 1+ Anisocytosis 1+ Microcytosis 1+ Ovalocytes 1+ PT with INR INR PTT (Actin FS) Puncture Site Right brachial ABG pH 7.26 L ABG pCO2 at Pt Temp 43.2 ABG pO2 at Pt Temp 116.0 H ABG HCO3 18.7 L ABG O2 Sat (Measured) 98.9 ABG O2 Content 6.6 L* ABG Base Excess -7.2 L Jabari Test Positive VBG pH POC VBG pCO2 POC VBG pO2 Mixed VBG HCO3 O2 Delivery Device Vent Oxygen Flow Rate 50% Vent Rate 14 Mechanical Rate Yes PEEP 5.0 Pressure Support Vent 450 Sodium Potassium Chloride Carbon Dioxide Anion Gap BUN Creatinine Creat Clearance w eGFR Random Glucose Lactic Acid Calcium Total Bilirubin AST ALT Alkaline Phosphatase Creatine Kinase Troponin I Total Protein Albumin Urine Color Urine Appearance Urine pH Ur Specific [place] Urine Protein Urine Glucose (UA) Urine Ketones Urine Blood Urine Nitrite Urine Bilirubin Urine Urobilinogen Ur Leukocyte Esterase Urine WBC (Auto) Urine RBC (Auto) Ur Epithelial Cells Urine Bacteria Hyaline Casts Urine Mucus Stool Occult Blood Negative Blood Type Antibody Screen Crossmatch 05/05/17 05/05/17 05/05/17 22:10 22:10 22:10 WBC RBC Hgb Hct MCV MCH MCHC RDW Plt Count MPV Total Counted Neutrophils % Neutrophils % (Manual) Band Neutrophils % Lymphocytes % Lymphocytes % (Manual) Monocytes % (Manual) Hypochromia Platelet Estimate Platelet Comment Polychromasia Basophilic Stippling Anisocytosis Microcytosis Ovalocytes PT with INR 18.20 H INR 1.61 H PTT (Actin FS) 24.3 L Puncture Site ABG pH ABG pCO2 at Pt Temp ABG pO2 at Pt Temp ABG HCO3 ABG O2 Sat (Measured) ABG O2 Content ABG Base Excess Jabari Test VBG pH POC VBG pCO2 POC VBG pO2 Mixed VBG HCO3 O2 Delivery Device Oxygen Flow Rate Vent Rate Mechanical Rate PEEP Pressure Support Vent Sodium 147 H Potassium 5.3 H Chloride 114 H Carbon Dioxide 21 D Anion Gap 12 BUN 96 H D Creatinine 2.8 H D Creat Clearance w eGFR 21.54 Random Glucose 329 H* D Lactic Acid Calcium 7.2 L Total Bilirubin 0.5 AST 19 D ALT 25 Alkaline Phosphatase 120 H Creatine Kinase 45 Troponin I 0.09 H D Total Protein 5.4 L Albumin 2.0 L Urine Color Urine Appearance Urine pH Ur Specific [place] Urine Protein Urine Glucose (UA) Urine Ketones Urine Blood Urine Nitrite Urine Bilirubin Urine Urobilinogen Ur Leukocyte Esterase Urine WBC (Auto) Urine RBC (Auto) Ur Epithelial Cells Urine Bacteria Hyaline Casts Urine Mucus Stool Occult Blood Blood Type B POSITIVE Antibody Screen Negative Crossmatch See Detail 05/05/17 05/05/17 05/06/17 22:20 22:20 00:30 WBC RBC Hgb Hct MCV MCH MCHC RDW Plt Count MPV Total Counted Neutrophils % Neutrophils % (Manual) Band Neutrophils % Lymphocytes % Lymphocytes % (Manual) Monocytes % (Manual) Hypochromia Platelet Estimate Platelet Comment Polychromasia Basophilic Stippling Anisocytosis Microcytosis Ovalocytes PT with INR INR PTT (Actin FS) Puncture Site ABG pH ABG pCO2 at Pt Temp ABG pO2 at Pt Temp ABG HCO3 ABG O2 Sat (Measured) ABG O2 Content ABG Base Excess Jabari Test VBG pH 7.24 L* POC VBG pCO2 49.0 POC VBG pO2 28.6 Mixed VBG HCO3 20.3 O2 Delivery Device Oxygen Flow Rate Vent Rate Mechanical Rate PEEP Pressure Support Vent Sodium 145 Potassium 5.4 H Chloride 111 H Carbon Dioxide 23 Anion Gap 11 BUN 105 H* Creatinine 2.9 H Creat Clearance w eGFR 20.69 Random Glucose 437 H* D Lactic Acid 4.5 H* Calcium 7.2 L Total Bilirubin 0.5 AST 24 D ALT 27 Alkaline Phosphatase 112 Creatine Kinase Troponin I Total Protein 5.1 L Albumin 1.9 L Urine Color Urine Appearance Urine pH Ur Specific [place] Urine Protein Urine Glucose (UA) Urine Ketones Urine Blood Urine Nitrite Urine Bilirubin Urine Urobilinogen Ur Leukocyte Esterase Urine WBC (Auto) Urine RBC (Auto) Ur Epithelial Cells Urine Bacteria Hyaline Casts Urine Mucus Stool Occult Blood Blood Type Antibody Screen Crossmatch 05/06/17 05/06/17 05/06/17 02:18 02:30 06:00 WBC RBC Hgb Hct MCV MCH MCHC RDW Plt Count MPV Total Counted Neutrophils % Neutrophils % (Manual) Band Neutrophils % Lymphocytes % Lymphocytes % (Manual) Monocytes % (Manual) Hypochromia Platelet Estimate Platelet Comment Polychromasia Basophilic Stippling Anisocytosis Microcytosis Ovalocytes PT with INR INR PTT (Actin FS) Puncture Site ABG pH ABG pCO2 at Pt Temp ABG pO2 at Pt Temp ABG HCO3 ABG O2 Sat (Measured) ABG O2 Content ABG Base Excess Jabari Test VBG pH POC VBG pCO2 POC VBG pO2 Mixed VBG HCO3 O2 Delivery Device Oxygen Flow Rate Vent Rate Mechanical Rate PEEP Pressure Support Vent Sodium 140 Potassium 5.3 H Chloride 106 Carbon Dioxide 22 Anion Gap 12 BUN 98 H Creatinine 2.6 H Creat Clearance w eGFR 23.47 Random Glucose 490 H* Lactic Acid 1.7 Calcium 7.3 L Total Bilirubin 0.6 AST 45 H D ALT 28 Alkaline Phosphatase 120 H Creatine Kinase Troponin I Total Protein 5.4 L Albumin 2.0 L Urine Color Yellow Urine Appearance Cloudy Urine pH 5.0 Ur Specific [place] 1.017 Urine Protein Negative Urine Glucose (UA) 1+ H Urine Ketones Negative Urine Blood 2+ H Urine Nitrite Negative Urine Bilirubin Negative Urine Urobilinogen Negative Ur Leukocyte Esterase 1+ H Urine WBC (Auto) 19 Urine RBC (Auto) 34 Ur Epithelial Cells Rare Urine Bacteria Rare Hyaline Casts 24 Urine Mucus Rare Stool Occult Blood Blood Type Antibody Screen Crossmatch 05/06/17 05/06/17 06:00 06:00 WBC 21.1 H RBC 2.47 L D Hgb 7.5 L D Hct 23.2 L D MCV 93.9 D MCH 30.5 MCHC 32.5 RDW 17.8 H Plt Count 366 MPV 9.0 Total Counted Neutrophils % No Result Required. Neutrophils % (Manual) Band Neutrophils % Lymphocytes % No Result Required. Lymphocytes % (Manual) Monocytes % (Manual) Hypochromia Platelet Estimate Platelet Comment Polychromasia Basophilic Stippling Anisocytosis Microcytosis Ovalocytes PT with INR INR PTT (Actin FS) Puncture Site ABG pH ABG pCO2 at Pt Temp ABG pO2 at Pt Temp ABG HCO3 ABG O2 Sat (Measured) ABG O2 Content ABG Base Excess Jabari Test VBG pH POC VBG pCO2 POC VBG pO2 Mixed VBG HCO3 O2 Delivery Device Oxygen Flow Rate Vent Rate Mechanical Rate PEEP Pressure Support Vent Sodium Potassium Chloride Carbon Dioxide Anion Gap BUN Creatinine Creat Clearance w eGFR Random Glucose Lactic Acid 1.4 Calcium Total Bilirubin AST ALT Alkaline Phosphatase Creatine Kinase Troponin I Total Protein Albumin Urine Color Urine Appearance Urine pH Ur Specific [place] Urine Protein Urine Glucose (UA) Urine Ketones Urine Blood Urine Nitrite Urine Bilirubin Urine Urobilinogen Ur Leukocyte Esterase Urine WBC (Auto) Urine RBC (Auto) Ur Epithelial Cells Urine Bacteria Hyaline Casts Urine Mucus Stool Occult Blood Blood Type Antibody Screen Crossmatch Active Medications Generic Name Dose Route Start Last Admin Trade Name Freq PRN Reason Stop Dose Admin Norepinephrine Bitartrate 4, 500 mls @ 75 mls/hr 05/05/17 20:15 05/06/17 10: 30 000 mcg/ Dextrose IV 14 mcg/min TITR SHANDA 105 mls/hr Protocol Titration 10 MCG/MIN Fentanyl 500 mcg/ Dextrose 100 mls @ 0 mls/hr 05/05/17 20:30 05/06/17 11:19 IVPB 13 mls/hr TITR SHANDA Administration Titrate Midazolam HCl 100 mg/ Sodium 100 mls @ 1 mls/hr 05/05/17 21:30 05/06/17 07:00 Chloride IVPB 2 mg/hr TITR SHANDA 2 mls/hr Protocol Titration 1 MG/HR Dextrose/Sodium Chloride 1,000 mls @ 75 mls/hr 05/05/17 22:15 05/05/17 23:20 D5-1/2ns - IV 75 mls/hr ASDIR SHANDA Administration Pantoprazole Sodium 80 mg/ 100 mls @ 10 mls/hr 05/05/17 23:45 05/06/17 09:45 Sodium Chloride IVPB 05/06/17 23:00 10 mls/hr Q10H SHANDA Administration 8 MG/HR Pantoprazole Sodium 160 mg/ 290 mls @ 14.5 mls/hr 05/06/17 14:00 Dextrose IVPB Q20H SHANDA Dextrose/Sodium Chloride 1,000 mls @ 75 mls/hr 05/06/17 12:00 D5-1/2ns - IV ASDIR SHANDA ASSESSMENT/PLAN: #ID Septic shock -ID on board, Dr. Garcia -Follow abx recommendations from ID -Vanc/Ertapenem/Tamiflu given in the ED -Continue Levophed, Fentanyl, and Versed - #CV Atrial fibrillation with RVR -Hold AC in the setting of Anemia -Cardiology on board, Dr. Mays #Pulm Acute respiratory failure -Intubated/sedated -Continue Levophed, Fentanyl, and Versed -Continue ventilatory support #Heme Anemia of unknown etiology, possible GI bleed -Received 2 prbc, monitor CBC -Monitor H/H #Renal REBEKA, likely prerenal -Continue D5 1/2 NS @ 75 cc/hr -Urine lytes, BUN, Cr-- pending #Endo Hyperglycemia -BGM ACHS -ISS ACHS #FEN/GI -D5 1/2 NS @ 75 cc/hr -Monitor BMPs -NPO #PPx -Protnoix Drip -SCDs, no ac in the setting of anemia Visit type - Emergency Visit Emergency Visit: Yes ED Registration Date: 05/05/17 Care time: The patient presented to the Emergency Department on the above date and was hospitalized for further evaluation of their emergent condition. - New Patient This patient is new to me today: Yes Date on this admission: 05/06/17 - Critical Care Critical Care patient: Yes Total Critical Care Time (in minutes): 40 Critical Care Statement: The care of this patient involved high complexity decision making to prevent further life threatening deterioration of the patient 's condition and/or to evaluate & treat vital organ system(s) failure or risk of failure.
--- NOTE | 2017-05-06 12:47 | PN ---
Progress Note (short form) - Note Progress Note: dr johnston /dr mcdonald will take over from today Problem List - Problems (1) Sepsis Code(s): A41.9 - SEPSIS, UNSPECIFIED ORGANISM (2) Altered mental status Code(s): R41.82 - ALTERED MENTAL STATUS, UNSPECIFIED Qualifiers: (3) Dementia Code(s): F03.90 - UNSPECIFIED DEMENTIA WITHOUT BEHAVIORAL DISTURBANCE Qualifiers: Dementia type: Alzheimer's disease Dementia behavioral disturbance: with behavioral disturbance (4) Status post hip surgery Code(s): Z98.890 - OTHER SPECIFIED POSTPROCEDURAL STATES
[2017-05-06] MEDS ORDERED: INSULIN (NOVOLOG) ASPART 100 UNITS/ML 10ML VIAL SQ ONE (12:49)
[2017-05-06] MEDS: MUPIROCIN 2% TOPICAL OINTMENT FOR DECOLONIZATION NS SCH ×2 (12:57→21:37)
--- NOTE | 2017-05-06 13:49 | CONS ---
DATE OF CONSULTATION: 05/06/2017 REQUESTING PHYSICIAN: Heather Peres MD CHIEF COMPLAINT: Respiratory failure, septic shock, cardiovascular evaluation. HISTORY OF PRESENT ILLNESS: History was predominantly obtained from the current and old medical record since patient is intubated and no family members available. An 86-year-old male of descent with known history of hypertensive cardiovascular disease, organic brain syndrome, dementia, hip fracture post surgical intervention, with re-intervention and subsequent discharge to an extended care facility, from which he presented with altered mental status, acute respiratory distress requiring intubation and initiation of sedation therapy. Patient, in addition, was noted to be hypotensive related to sepsis syndrome, requiring pressor initiation. Patient currently is intubated and sedated and appears to be calm, in no distress. Atrial fibrillation is noted with periods of rapid ventricular response. As noted above, patient is status post hip surgery with re-intervention and subsequent sacral decubiti requiring intervention. Patient, in addition, in the emergency room was noted to have profound anemia. In view of which, blood transfusion was initiated last night. Patient was noted to have elevated troponin-I level consistent with acute coronary syndrome. PAST MEDICAL HISTORY: Hypertensive cardiovascular disease, organic brain syndrome, dementia, hip surgery post re-intervention, sacral decubitus post debridement. SOCIAL HISTORY: A resident of an extended care facility. FAMILY HISTORY: Not available. ALLERGIES: None reported. MEDICAL THERAPY: Currently includes norepinephrine drip, fentanyl drip, Versed drip, IV fluids, and Protonix intravenously. REVIEW OF SYSTEMS: Not obtainable. PHYSICAL EXAMINATION: Vital Signs: Blood pressure is 103/64 mmHg. Pulse rate is 103 beats per minute, irregular. Head and Neck: Pupils are reactive to light and accommodation. External ocular muscle cannot be evaluated. Anicteric sclerae. Negative JVD. No bruit appreciated. Chest: Diminished breath sounds at the bases bilaterally with bilateral scattered rhonchi. Cardiovascular: S1 and S2 irregularly irregular. Grade 1-2/6 systolic apical murmur. No gallops. Abdomen: Soft, benign. Normoactive bowel sounds. Extremities: Negative edema. Distal pulses 1+. No calf tenderness. DIAGNOSTIC DATA: Electrocardiogram reveals atrial fibrillation with rapid ventricular response and right bundle branch block with nonspecific ST-segment and T-wave abnormality. Troponin 0.09. CBC revealed white cell count 23.8, hemoglobin 4.5, platelet count 431. Basic metabolic profile revealed sodium 145, potassium 5.4, BUN 105, creatinine 2.9, glucose 437. ASSESSMENT: 1. Acute respiratory failure and septic shock with lactic acidosis. 2. Coronary artery disease with evidence of demand ischemic injury, angina pectoris. 3. Diastolic left ventricular dysfunction with class 0-1 [place] [employer] classification left ventricular failure, hypovolemic, compensated. 4. Profound anemia, source to be determined, post transfusion. 5. Hknbd-nt-gcyjlhh kidney disease. 6. Hyperglycemia/diabetes mellitus. 7. History of hypertension, currently hypotensive, septic shock. 8. Hyperkalemia. RECOMMENDATION: 1. Antibiotics as per the primary team. 2. Pressors to maintain mean arterial pressure greater than 65 mmHg and attempt to wean off as tolerated. 3. Correction of hyperkalemia. 4. Correction of hyperglycemia. 5. Monitor hemoglobin and transfuse as needed, maintaining hemoglobin equal or greater than 8.0. 6. Echocardiography for evaluation of left ventricular size and function. 7. Ventilator management as per the critical care team. Thank you for the kind referral. SHEILA MCGUIRE M.D. [id number]
--- NOTE | 2017-05-06 13:50 | CONSULT ---
Consult Consult Specialty:: Nephrology Referred by:: Dr. Dorado Reason for Consultation:: Acute renal failure - History of Present Illness Chief Complaint: Shortness of breath History of Present Illness: 86M of dementia, HTN, depression/anxiety, BPH, Glaucoma who was brought in by EMS from [place] this evening in setting of AMS, hypoxia, and septic shock. Pt was recently discharged on 05/01 from this facility after f/u visit after hip fx repair on 04/15/2017. Patient had initial hip surgery done in [facility] and then had the revision done here on 04/15/17. Patient presented to the ED hypotensive and hypoxic. He was intubated and remained in shock despite adequate fluid resuscitation and was started on pressors. Patient was noted to be anekmic Hb 4.5 in ED and was Influenza A positive. Patient also was in acute renal failure which prompted nephrology consult. Patient is currently intubated and sedated. 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 Cardio/Vascular: Yes: HTN Renal/: Yes: BPH Psych: Yes: Anxiety, Depression Additional Medical History: Glaucoma - Alcohol/Substance Use Hx Alcohol Use: No - Smoking History Smoking history: Unknown if ever smoked - Social History Usual Living Arrangement: With Child Home Medications - Allergies Allergies/Adverse Reactions: Allergies Allergy/AdvReac Type Severity Reaction Status Date / Time No Known Allergies Allergy Verified 05/05/17 19:47 - Home Medications Home Medications: Ambulatory Orders Amlodipine Besylate [Norvasc -] 10 mg PO DAILY 04/14/17 Brimonidine Tartrate [Alphagan 0.2% -] 1 drop OU DAILY 04/14/17 Dorzolamide HCl/Timolol Maleat [Cosopt Eye Drops] 10 ml OP DAILY 04/14/17 Olanzapine [Zyprexa -] 2.5 mg PO DAILY 04/14/17 Quetiapine Fumarate [Seroquel -] 25 mg PO HS 04/14/17 Travoprost [Travatan Z] 2.5 ml OP DAILY 04/14/17 Review of Systems Unable to obtain ROS, reason: Intubated and sedated Physical Exam Vital Signs: Vital Signs Temperature 98.8 F 05/06/17 10:00 Pulse Rate 125 H 05/06/17 13:24 Respiratory Rate 14 05/06/17 12:15 Blood Pressure 112/68 05/06/17 13:24 O2 Sat by Pulse Oximetry (%) 97 05/06/17 10:00 Constitutional: Yes: Thin Eyes: Yes: Conjunctiva Clear, Other (pupils equally round. Minimal if any reactivity to light on left. Right side is reactive to light.) HENT: Yes: Atraumatic Neck: Yes: Trachea Midline Cardiovascular: Yes: Pulse Irregular Respiratory: Yes: CTA Bilaterally, Intubated Gastrointestinal: Yes: Soft Edema: No Peripheral Pulses WNL: Yes (DP pulses 1+ bilaterally ) Wound/Incision: Yes: Clean/Dry, Well Approximated Labs: CBC, BMP 05/06/17 06:00 05/06/17 06:00 Imaging - Results Chest X-ray: Report Reviewed, Image Reviewed Cat Scan: Report Reviewed, Image Reviewed Assessment/Plan 86M with multiple medical problems presents to the ED in spetic shock s/p intubated and sedated. Problem list: Septic shock secondary to possible septic joint vs influenza A Influenza A A fib with RVR Acute respiraatory failure acute anemia Acute renal failure/REBEKA Hyperglycemia leukocytosis hyperkalemia Plan: Likely pre-renal azotemia causing REBEKA. Possible ATN-patient is volume depleted, septic, and anemic. send urine electrolytes urine creatinine Renal/bladder ultrasound calculate FeNa Avoid nephrotoxic drugs renally dose all meds for CrCl <30 ID for ABx Pressors for BP support-wean as tolerated ventilatory support-wean off vent as tolerated HR control Transfuse PRN IVF Monitor potassium and treat hyperkalemia PRN GI/DVT PPx Case discussed with attending Dr. Rubi
[2017-05-06 13:54] LABS: ANISOCYTOSIS 1+
[2017-05-06 13:55] LABS: MACROCYTOSIS 1+; OVALOCYTE 1+
--- NOTE | 2017-05-06 14:32 | CON.ID ---
Consult Consult Specialty:: infectious diseases Referred by:: Reason for Consultation:: influenza positive - History of Present Illness History of Present Illness: this patient is intubated history was obtained from the records 86M of dementia, HTN, depression/anxiety, BPH, Glaucoma who was brought in by EMS from [place] this evening in setting of AMS, hypoxia, and septic shock. according to the notes Pt was recently discharged on 05/01 from this facility after f/u visit after hip fx repair on 04/15/2017. [facility] and then had the revision done here on 04/15/17. post surgery i think the patient had draiange from the wound and the cx were showing mrsa with enterococcus and ESBL In ED hypotensive and hypoxic. and was intubated and remained in shock despite adequate fluid resuscitation and was started on pressors. 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 Cardio/Vascular: Yes: HTN Psych: Yes: Anxiety, Other - Alcohol/Substance Use Hx Alcohol Use: No - Smoking History Smoking history: Unknown if ever smoked - Social History Usual Living Arrangement: With Child Home Medications - Allergies Allergies/Adverse Reactions: Allergies Allergy/AdvReac Type Severity Reaction Status Date / Time No Known Allergies Allergy Verified 05/05/17 19:47 - Home Medications Home Medications: Ambulatory Orders Amlodipine Besylate [Norvasc -] 10 mg PO DAILY 04/14/17 Brimonidine Tartrate [Alphagan 0.2% -] 1 drop OU DAILY 04/14/17 Dorzolamide HCl/Timolol Maleat [Cosopt Eye Drops] 10 ml OP DAILY 04/14/17 Olanzapine [Zyprexa -] 2.5 mg PO DAILY 04/14/17 Quetiapine Fumarate [Seroquel -] 25 mg PO HS 04/14/17 Travoprost [Travatan Z] 2.5 ml OP DAILY 04/14/17 Review of Systems Unable to obtain ROS, reason: unable Physical Exam Vital Signs: Vital Signs Temperature 99.3 F 05/06/17 14:00 Pulse Rate 118 H 05/06/17 14:00 Respiratory Rate 16 05/06/17 14:25 Blood Pressure 101/55 05/06/17 14:00 O2 Sat by Pulse Oximetry (%) 97 05/06/17 10:00 Constitutional: Yes: Other Eyes: Yes: Conjunctiva Clear Neck: Yes: Supple Cardiovascular: Yes: Pulse Irregular Respiratory: Yes: Intubated, Mechanically Ventilated Gastrointestinal: Yes: Normal Bowel Sounds, Soft, Other (guiac positive) Musculoskeletal: Yes: Other (wound looked at on the left hip) Integumentary: Yes: Other Wound/Incision: Yes: Clean/Dry Neurological: Yes: Other Labs: CBC, BMP 05/06/17 06:00 05/06/17 06:00 Imaging - Results Chest X-ray: Report Reviewed, Image Reviewed Cat Scan: Report Reviewed, Image Reviewed Ultrasound: Report Reviewed, Image Reviewed Assessment/Plan Problem List - Problems (1) Sepsis Code(s): A41.9 - SEPSIS, UNSPECIFIED ORGANISM (2) REBEKA (acute kidney injury) Code(s): N17.9 - ACUTE KIDNEY FAILURE, UNSPECIFIED (3) Anemia Code(s): D64.9 - ANEMIA, UNSPECIFIED Qualifiers: Other causes of anemia: chronic disease, other (4) Respiratory failure Code(s): J96.90 - RESPIRATORY FAILURE, UNSP, UNSP W HYPOXIA OR HYPERCAPNIA wound infection influenza a plan will change to vanco and francis transfusion supportive measures prognosis does not look good pressors rest as per icu cc time 45
[2017-05-06] MEDS: PANTOPRAZOLE SODIUM 160 MG in DEXTROSE 5%-WATER - 290 ML IVPB SCH (14:52)
[2017-05-06] MEDS: OSELTAMIVIR PHOSPHATE 30 MG CAPSULE PO SCH (15:37)
[2017-05-06] MEDS: MEROPENEM 500 MG PUSH 500 MG/10 ML DISP.SYRIN IVPUSH SCH ×2 (15:37→21:39)
--- NOTE | 2017-05-06 15:49 | PN ---
Progress Note, Physician Chief Complaint: patient seen and examiend in icu intubated and sedated - Current Medication List Current Medications: Active Medications Norepinephrine Bitartrate 4, (000 mcg/ Dextrose) 500 mls @ 75 mls/hr IV TITR SHANDA; 10 MCG/MIN PRN Reason: Protocol Last Admin: 05/06/17 13:24 Dose: 14 mcg/min, 105 mls/hr Fentanyl 500 mcg/ Dextrose 100 mls @ 0 mls/hr IVPB TITR SHANDA PRN Reason: Titrate Last Admin: 05/06/17 11:19 Dose: 13 mls/hr Midazolam HCl 100 mg/ Sodium (Chloride) 100 mls @ 1 mls/hr IVPB TITR SHANDA; 1 MG/ HR PRN Reason: Protocol Last Titration: 05/06/17 07:00 Dose: 2 mg/hr, 2 mls/hr Pantoprazole Sodium 80 mg/ (Sodium Chloride) 100 mls @ 10 mls/hr IVPB Q10H SHANDA PRN Reason: 8 MG/HR Stop: 05/06/17 23:00 Last Admin: 05/06/17 09:45 Dose: 10 mls/hr Pantoprazole Sodium 160 mg/ (Dextrose) 290 mls @ 14.5 mls/hr IVPB Q20H [facility] Last Admin: 05/06/17 14:52 Dose: 14.5 mls/hr Dextrose/Sodium Chloride (D5-1/2ns -) 1,000 mls @ 75 mls/hr IV ASDIR [facility] Last Admin: 05/06/17 12:00 Dose: 75 mls/hr Vancomycin HCl 1,000 mg/ (Dextrose) 250 mls @ 250 mls/hr IVPB Q48H SHANDA PRN Reason: Protocol Meropenem (Merrem (Restricted To Id) -) 500 mg in 10 mls @ 120 mls/hr IVPUSH BID [facility] Last Admin: 05/06/17 15:37 Dose: 120 mls/hr Insulin Aspart (Novolog Vial Sliding Scale -) 1 vial SQ ACHS [facility] PRN Reason: Protocol Mupirocin (Bactroban Ointment (For Decolonization) -) 1 applic NS BID [facility] Stop: 05/11/17 12:59 Last Admin: 05/06/17 12:57 Dose: 1 applic Oseltamivir Phosphate (Tamiflu -) 30 mg PO DAILY [facility] Stop: 05/11/17 13:29 Last Admin: 05/06/17 15:37 Dose: 30 mg - Objective Vital Signs: Vital Signs Temperature 99.3 F 05/06/17 14:00 Pulse Rate 118 H 05/06/17 14:00 Respiratory Rate 16 05/06/17 14:25 Blood Pressure 101/55 05/06/17 14:00 O2 Sat by Pulse Oximetry (%) 97 05/06/17 10:00 Constitutional: Yes: Calm Cardiovascular: Yes: Regular Rate and Rhythm, S1, S2 Respiratory: Yes: Mechanically Ventilated Gastrointestinal: Yes: Soft Edema: No Labs: CBC, BMP 05/06/17 06:00 05/06/17 06:00 INR, PTT INR 1.61 (0.82-1.09) H 05/05/17 22:10 Problem List - Problems (1) Sepsis Assessment/Plan: spetic shock on pressors resp failure intubated and sedated lactic acid trending down hemodynamic support with Norepinephrine tamiflu,meropenem Code(s): A41.9 - SEPSIS, UNSPECIFIED ORGANISM (2) REBEKA (acute kidney injury) Assessment/Plan: on presors will monitor creatinine renal sono noted Code(s): N17.9 - ACUTE KIDNEY FAILURE, UNSPECIFIED (3) Anemia Assessment/Plan: iron panel gi evaluation ppi iv s/p 2 units of prbc maintain H/h > 8 will give one more PRBC today Code(s): D64.9 - ANEMIA, UNSPECIFIED Qualifiers: Other causes of anemia: chronic disease, other (4) Respiratory failure Assessment/Plan: intubated and sedated Code(s): J96.90 - RESPIRATORY FAILURE, UNSP, UNSP W HYPOXIA OR HYPERCAPNIA
--- NOTE | 2017-05-06 16:03 | PN ---
Teaching Attending Note Name of Resident: Dewayne Nettles (Nephrology) ATTENDING PHYSICIAN STATEMENT I saw and evaluated the patient. I reviewed the resident's note and discussed the case with the resident. I agree with the resident's findings and plan as documented. Renal Pt seen and examined at bedside. He is now in the ICU and is intubated. Pt admitted for sepsis. Called to evaluate for worsening of renal function. Current Medications Generic Name Dose Route Start Last Admin Trade Name Freq PRN Reason Stop Dose Admin Norepinephrine Bitartrate 4, 500 mls @ 75 mls/hr 05/05/17 20:15 05/06/17 13: 24 000 mcg/ Dextrose IV 14 mcg/min TITR SHANDA 105 mls/hr Protocol Administration 10 MCG/MIN Fentanyl 500 mcg/ Dextrose 100 mls @ 0 mls/hr 05/05/17 20:30 05/06/17 11:19 IVPB 13 mls/hr TITR SHANDA Administration Titrate Midazolam HCl 100 mg/ Sodium 100 mls @ 1 mls/hr 05/05/17 21:30 05/06/17 07:00 Chloride IVPB 2 mg/hr TITR SHANDA 2 mls/hr Protocol Titration 1 MG/HR Pantoprazole Sodium 80 mg/ 100 mls @ 10 mls/hr 05/05/17 23:45 05/06/17 09:45 Sodium Chloride IVPB 05/06/17 23:00 10 mls/hr Q10H SHANDA Administration 8 MG/HR Pantoprazole Sodium 160 mg/ 290 mls @ 14.5 mls/hr 05/06/17 14:00 05/06/17 14: 52 Dextrose IVPB 14.5 mls/hr Q20H SHANDA Administration Dextrose/Sodium Chloride 1,000 mls @ 75 mls/hr 05/06/17 12:00 05/06/17 12:00 D5-1/2ns - IV 75 mls/hr ASDIR SHANDA Administration Vancomycin HCl 1,000 mg/ 250 mls @ 250 mls/hr 05/06/17 22:00 Dextrose IVPB Q48H SHANDA Protocol Meropenem 500 mg in 10 mls @ 120 mls/hr 05/06/17 14:45 05/06/17 15:37 Merrem (Restricted To Id) - IVPUSH 120 mls/hr BID SHANDA Administration Insulin Aspart 1 vial 05/06/17 16:30 Novolog Vial Sliding Scale - SQ ACHS [facility] Protocol Mupirocin 1 applic 05/06/17 13:00 05/06/17 12:57 Bactroban Ointment (For Decolonization) - NS 05/11/17 12:59 1 applic BID SHANDA Administration Oseltamivir Phosphate 30 mg 05/06/17 13:30 05/06/17 15:37 Tamiflu - PO 05/11/17 13:29 30 mg DAILY SHANDA Administration Last Vital Signs Temp Pulse Resp BP Pulse Ox 99.3 F 118 H 16 101/55 97 05/06/17 14:00 05/06/17 14:00 05/06/17 14:25 05/06/17 14:00 05/06/17 10:00 Laboratory Tests 05/05/17 05/05/17 05/06/17 22:10 22:10 00:30 WBC Hgb 4.5 L* D Sodium Potassium BUN Creatinine 2.8 H D 2.9 H Random Glucose Urine Glucose (UA) Urine Blood 05/06/17 05/06/17 05/06/17 02:18 06:00 06:00 WBC 21.1 H Hgb 7.5 L D Sodium 140 Potassium 5.3 H BUN 98 H Creatinine 2.6 H Random Glucose 490 H* Urine Glucose (UA) 1+ H Urine Blood 2+ H cardio s1s2 pulm intubated cardio s1s2 tachy GI soft ext neg edema neuro lethargy skin neg rash Impression 1. REBEKA 2. hip fracture 3. htn 4. dementia 5. anemia 6. hypomagnesemia 7. iron deficiency 8. hyperkalemia 9. respiratory failure requiring intubation 10. sepsis Plan - cont with fluids - transfuse prbc - follow urine lytes - likely REBEKA from sepsis and prerenal disease causing ATN - repeat labs in am - hold cesar - discussed with ICU team - discussed with attending Dr Rubi
[2017-05-06] MEDS: INSULIN SLIDING SCALE (NOVOLOG) 1 VIAL SQ SCH ×2 (16:51→21:55)
[2017-05-06] MEDS: ACETAMINOPHEN 650 MG/20.3 ML ORAL SOLUTION (CUPS) PO PRN (17:14)
--- NOTE | 2017-05-06 17:22 | PN ---
Progress Note (short form) - Note Progress Note: NEUROSURGERY CONSULT DICTATED Chart reviewed Pt examined CT had reviewed Pt intubated and unable to obtain history NH resident brought in for dyspnea, altered mental status, tachycardia was intubated on arrival in ED for respiratory failure. Hypotensive. + Flu. Started on vanco/zyson and changed to vanco/meropenem. Guiac +. PE: tachycardic; BP 101/48, NV 135 HEENT- NC/AT; Neck- supple; Cor- tachy, irreg; Lungs- decreased BS at bases; Abd -benign; Ext- no sign of SVT; pulses 2+ Intubated, sedated CN- B pupils 2.5 mm sluggish, + gag; Motor- minimal movement to pain; Sensation - difficult to assess; DTR- 1+; toes equivocal WBC 21.1; Hgb 7.5; INR 1.61; BUN/Cr 98/2.6 Influenza A +; blood culture pending Head CT (c/w 12/2016 scan): Unchanged moderate B cerebral atrophy and moderate periventricular small vessel dz; new B convexity 7 mm chronic SDH with R > L calcified subdural membrane; minimal mass effect; no shift Influenza A+/sepsis on coverage Afib with RVR GIB ATN/renal insufficiency/prerenal azotemia 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
[2017-05-06] MEDS ORDERED: SODIUM CHLORIDE 0.9% 1000 ML INFUS.BAG IV ONE (18:06)
[2017-05-06] MEDS ORDERED: SODIUM CHLORIDE 0.9% 500 ML INFUS.BAG IV ONE (19:07)
[2017-05-06] MEDS: MIDAZOLAM 100 MG in SODIUM CHLORIDE 100 ML IVPB SCH (21:37)
[2017-05-06] MEDS: VANCOMYCIN 1,000 MG in DEXTROSE 5%-WATER - 250 ML IVPB SCH (21:39)
[2017-05-06] MEDS ORDERED: MEROPENEM 500 MG VIAL (RESTRICTED TO ID) IVPB SCH (22:00)
[2017-05-07 00:38] LABS: HEMATOCRIT 27.6 % (35.4-49); HEMOGLOBIN 8.8 GM/dL (11.7-16.9); MCH 29.8 pg (25.7-33.7); MCHC 31.9 g/dl (32.0-35.9); MEAN CELL VOLUME 93.4 fl (80-96); MEAN PLT VOLUME 8.5 fl (7.5-11.1); PLATELET COUNT 276 K/MM3 (134-434); RBC 2.96 M/mm3 (4.00-5.60); RDW 17.3 % (11.9-15.9); WHITE BLOOD COUNT 18.7 K/mm3 (4.0-10.0)
[2017-05-07] MEDS ORDERED: fentaNYL CITRATE 250 MCG/5 ML VIAL ONE ×2 (06:00→22:47)
[2017-05-07 06:30] LABS: ARTERIAL BLD GAS O2 SATURATION 97.1 % (90-98.9); ARTERIAL BLOOD GAS BASE EXCESS -6.3 meq/l (-2-2); ARTERIAL BLOOD GAS PO2 93.8 mmHg (68-100); ARTERIAL BLOOD GAS pH 7.27 (7.35-7.45)
[2017-05-07] MEDS: INSULIN SLIDING SCALE (NOVOLOG) 1 VIAL SQ SCH ×4 (06:34→21:38)
[2017-05-07 07:38] LABS: ALLENS TEST POSITIVE
[2017-05-07 08:01] LABS: HEMATOCRIT 29.1 % (35.4-49); HEMOGLOBIN 9.3 GM/dL (11.7-16.9); MCH 29.6 pg (25.7-33.7); MCHC 32.1 g/dl (32.0-35.9); MEAN CELL VOLUME 92.4 fl (80-96); MEAN PLT VOLUME 8.5 fl (7.5-11.1); PLATELET COUNT 289 K/MM3 (134-434); RBC 3.15 M/mm3 (4.00-5.60); RDW 17.4 % (11.9-15.9); WHITE BLOOD COUNT 22.4 K/mm3 (4.0-10.0)
--- NOTE | 2017-05-07 08:09 | EKG ---
Test Reason : Blood Pressure : / mmHG Vent. Rate : 117 BPM Atrial Rate : 111 BPM P-R Int : 000 ms QRS Dur : 144 ms QT Int : 328 ms P-R-T Axes : 000 -86 017 degrees QTc Int : 457 ms ATRIAL FIBRILLATION WITH RAPID VENTRICULAR RESPONSE LEFT AXIS DEVIATION RIGHT BUNDLE BRANCH BLOCK INFERIOR INFARCT , AGE UNDETERMINED ABNORMAL ECG WHEN COMPARED WITH ECG OF 15-APR-2017 10:46, ATRIAL FIBRILLATION HAS REPLACED SINUS RHYTHM VENT. RATE HAS INCREASED BY 41 BPM LEFT ANTERIOR FASCICULAR BLOCK IS NO LONGER PRESENT INFERIOR INFARCT IS NOW PRESENT Confirmed by BRANDON GUADARRAMA, ELLEN ([id number]) on 05/07/2017 8:09:13 AM Referred By: Confirmed By:ELLEN TAYLOR MD
[2017-05-07 08:10] LABS: INR 1.56 (0.82-1.09); PROTHROMBIN TIME (PATIENT) 17.6 SEC (9.98-11.88)
[2017-05-07 08:13] LABS: ACTIVATED PTT 30.1 SECONDS (26.9-34.4)
--- NOTE | 2017-05-07 08:38 | CON.GI ---
Consult - History of Present Illness History of Present Illness: Chart reviewed, events noted. The patient is known to GI service from prior, recent admission for anemia w/o signs of GI blood loss. PER Admitting encounter: Mr Stallworth is an 86 y/o man with hx of dementia, HTN, depression who was brought in by EMS from [place] this evening in setting of AMS, hypoxia, and septic shock. Pt was recently discharged on 05/01 from this facility after f/u visit after hip fx repair on 04/15 (initial surgery was done in [facility] Pt was non- responsive, hypotensive to 60/40, SPo2 70s. Pt was intubated and sedated. BP remained low, despite fluid resuscitation. Central line was placed and pt started on levophed. Labs notable for influenza A + of resp viral panel, hgb 4.5 down from 8 (guiac - dark stool), Cr 2.8 up from baseline 1.4, lactate 6. . He was started on broad spectrum abx. Of note Pt had wound/intra-op cxl positive for ESBL Kleb and MRSA. He received Vanco only in ED. Cxl were sent. UA with R>W, +LE. . CT head performed, read pending. 2 PRBC given. PPI gtt started (stool guiac neg but ED staff felt was + clinically). CXR was unrevealing. Exam of R hip was unrevealing. Pt transferred to ICU for further care. At the time of this encounter the patient is in ICU on ventilator, intubated, sedated, and in asolation. 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 Cardio/Vascular: Yes: HTN Renal/: Yes: BPH Psych: Yes: Anxiety, Other Additional Medical History: Glaucoma - Alcohol/Substance Use Hx Alcohol Use: No - Smoking History Smoking history: Unknown if ever smoked - Social History Usual Living Arrangement: With Child Home Medications - Allergies Allergies/Adverse Reactions: Allergies Allergy/AdvReac Type Severity Reaction Status Date / Time No Known Allergies Allergy Verified 05/05/17 19:47 - Home Medications Home Medications: Ambulatory Orders Amlodipine Besylate [Norvasc -] 10 mg PO DAILY 04/14/17 Brimonidine Tartrate [Alphagan 0.2% -] 1 drop OU DAILY 04/14/17 Dorzolamide HCl/Timolol Maleat [Cosopt Eye Drops] 10 ml OP DAILY 04/14/17 Olanzapine [Zyprexa -] 2.5 mg PO DAILY 04/14/17 Quetiapine Fumarate [Seroquel -] 25 mg PO HS 04/14/17 Travoprost [Travatan Z] 2.5 ml OP DAILY 04/14/17 Family Disease History - Family Disease History Family History: Unremarkable (non-contributory) Review of Systems Findings/Remarks: As per HPI, H&P Physical Exam-GI Vital Signs: Vital Signs Temperature 98.9 F 05/07/17 08:00 Pulse Rate 98 H 05/07/17 08:00 Respiratory Rate 16 05/07/17 08:00 Blood Pressure 100/61 05/07/17 08:00 O2 Sat by Pulse Oximetry (%) 97 05/06/17 21:01 Constitutional: Yes: Other (Intubated, sedated.) HENT: Yes: Atraumatic Neck: Yes: Supple Cardiovascular: Yes: Pulse Irregular Respiratory: Yes: Mechanically Ventilated Gastrointestinal Inspection: No: Ascites, Distention ...Palpate: Yes: Soft. No: Mass ...Percussion: No: Fluid Wave ...Rectal Exam: Yes: Guaiac Negative, Other (brown) Labs: CBC, BMP 05/07/17 06:35 INR, PTT INR 1.61 (0.82-1.09) H 05/05/17 22:10 Laboratory Tests 05/05/17 05/05/17 05/05/17 21:30 22:08 22:10 WBC 23.8 H D RBC 1.52 L D Hgb 4.5 L* D Hct 15.7 L D MCV 103.4 H D MCH 29.8 MCHC 28.8 L RDW 18.6 H Plt Count 431 MPV 8.8 Total Counted 100 Neutrophils % No Result Required. Neutrophils % (Manual) 93.0 H* Band Neutrophils % 2.0 Lymphocytes % No Result Required. Lymphocytes % (Manual) 3.0 L Monocytes % (Manual) 2 L Nucleated RBC % Metamyelocytes Hypochromia 2+ Platelet Estimate Increased Platelet Comment No clumping noted Polychromasia 1+ Basophilic Stippling 1+ Anisocytosis 1+ Microcytosis 1+ Macrocytosis Ovalocytes 1+ PT with INR INR PTT (Actin FS) Puncture Site Right brachial ABG pH 7.26 L ABG pCO2 at Pt Temp 43.2 ABG pO2 at Pt Temp 116.0 H ABG HCO3 18.7 L ABG O2 Sat (Measured) 98.9 ABG O2 Content 6.6 L* ABG Base Excess -7.2 L Jabari Test Positive VBG pH POC VBG pCO2 POC VBG pO2 Mixed VBG HCO3 O2 Delivery Device Vent Oxygen Flow Rate 50% Vent Mode Vent Rate 14 Mechanical Rate Yes PEEP 5.0 Pressure Support Vent 450 Sodium Potassium Chloride Carbon Dioxide Anion Gap BUN Creatinine Creat Clearance w eGFR POC Glucometer Random Glucose Lactic Acid Calcium Phosphorus Magnesium Total Bilirubin AST ALT Alkaline Phosphatase Creatine Kinase Troponin I Total Protein Albumin Urine Color Urine Appearance Urine pH Ur Specific [place] Urine Protein Urine Glucose (UA) Urine Ketones Urine Blood Urine Nitrite Urine Bilirubin Urine Urobilinogen Ur Leukocyte Esterase Urine WBC (Auto) Urine RBC (Auto) Ur Epithelial Cells Urine Bacteria Hyaline Casts Urine Mucus Ur Random Sodium Ur Random Potassium Ur Random Chloride Ur Random Urea Nitrogn Urine Creatinine Stool Occult Blood Negative Blood Type Antibody Screen Crossmatch 05/05/17 05/05/17 05/05/17 22:10 22:10 22:10 WBC RBC Hgb Hct MCV MCH MCHC RDW Plt Count MPV Total Counted Neutrophils % Neutrophils % (Manual) Band Neutrophils % Lymphocytes % Lymphocytes % (Manual) Monocytes % (Manual) Nucleated RBC % Metamyelocytes Hypochromia Platelet Estimate Platelet Comment Polychromasia Basophilic Stippling Anisocytosis Microcytosis Macrocytosis Ovalocytes PT with INR 18.20 H INR 1.61 H PTT (Actin FS) 24.3 L Puncture Site ABG pH ABG pCO2 at Pt Temp ABG pO2 at Pt Temp ABG HCO3 ABG O2 Sat (Measured) ABG O2 Content ABG Base Excess Jabari Test VBG pH POC VBG pCO2 POC VBG pO2 Mixed VBG HCO3 O2 Delivery Device Oxygen Flow Rate Vent Mode Vent Rate Mechanical Rate PEEP Pressure Support Vent Sodium 147 H Potassium 5.3 H Chloride 114 H Carbon Dioxide 21 D Anion Gap 12 BUN 96 H D Creatinine 2.8 H D Creat Clearance w eGFR 21.54 POC Glucometer Random Glucose 329 H* D Lactic Acid Calcium 7.2 L Phosphorus Magnesium Total Bilirubin 0.5 AST 19 D ALT 25 Alkaline Phosphatase 120 H Creatine Kinase 45 Troponin I 0.09 H D Total Protein 5.4 L Albumin 2.0 L Urine Color Urine Appearance Urine pH Ur Specific [place] Urine Protein Urine Glucose (UA) Urine Ketones Urine Blood Urine Nitrite Urine Bilirubin Urine Urobilinogen Ur Leukocyte Esterase Urine WBC (Auto) Urine RBC (Auto) Ur Epithelial Cells Urine Bacteria Hyaline Casts Urine Mucus Ur Random Sodium Ur Random Potassium Ur Random Chloride Ur Random Urea Nitrogn Urine Creatinine Stool Occult Blood Blood Type B POSITIVE Antibody Screen Negative Crossmatch See Detail 05/05/17 05/05/17 05/06/17 22:20 22:20 00:30 WBC RBC Hgb Hct MCV MCH MCHC RDW Plt Count MPV Total Counted Neutrophils % Neutrophils % (Manual) Band Neutrophils % Lymphocytes % Lymphocytes % (Manual) Monocytes % (Manual) Nucleated RBC % Metamyelocytes Hypochromia Platelet Estimate Platelet Comment Polychromasia Basophilic Stippling Anisocytosis Microcytosis Macrocytosis Ovalocytes PT with INR INR PTT (Actin FS) Puncture Site ABG pH ABG pCO2 at Pt Temp ABG pO2 at Pt Temp ABG HCO3 ABG O2 Sat (Measured) ABG O2 Content ABG Base Excess Jabari Test VBG pH 7.24 L* POC VBG pCO2 49.0 POC VBG pO2 28.6 Mixed VBG HCO3 20.3 O2 Delivery Device Oxygen Flow Rate Vent Mode Vent Rate Mechanical Rate PEEP Pressure Support Vent Sodium 145 Potassium 5.4 H Chloride 111 H Carbon Dioxide 23 Anion Gap 11 BUN 105 H* Creatinine 2.9 H Creat Clearance w eGFR 20.69 POC Glucometer Random Glucose 437 H* D Lactic Acid 4.5 H* Calcium 7.2 L Phosphorus Magnesium Total Bilirubin 0.5 AST 24 D ALT 27 Alkaline Phosphatase 112 Creatine Kinase Troponin I Total Protein 5.1 L Albumin 1.9 L Urine Color Urine Appearance Urine pH Ur Specific [place] Urine Protein Urine Glucose (UA) Urine Ketones Urine Blood Urine Nitrite Urine Bilirubin Urine Urobilinogen Ur Leukocyte Esterase Urine WBC (Auto) Urine RBC (Auto) Ur Epithelial Cells Urine Bacteria Hyaline Casts Urine Mucus Ur Random Sodium Ur Random Potassium Ur Random Chloride Ur Random Urea Nitrogn Urine Creatinine Stool Occult Blood Blood Type Antibody Screen Crossmatch 05/06/17 05/06/17 05/06/17 02:18 02:30 06:00 WBC RBC Hgb Hct MCV MCH MCHC RDW Plt Count MPV Total Counted Neutrophils % Neutrophils % (Manual) Band Neutrophils % Lymphocytes % Lymphocytes % (Manual) Monocytes % (Manual) Nucleated RBC % Metamyelocytes Hypochromia Platelet Estimate Platelet Comment Polychromasia Basophilic Stippling Anisocytosis Microcytosis Macrocytosis Ovalocytes PT with INR INR PTT (Actin FS) Puncture Site ABG pH ABG pCO2 at Pt Temp ABG pO2 at Pt Temp ABG HCO3 ABG O2 Sat (Measured) ABG O2 Content ABG Base Excess Jabari Test VBG pH POC VBG pCO2 POC VBG pO2 Mixed VBG HCO3 O2 Delivery Device Oxygen Flow Rate Vent Mode Vent Rate Mechanical Rate PEEP Pressure Support Vent Sodium 140 Potassium 5.3 H Chloride 106 Carbon Dioxide 22 Anion Gap 12 BUN 98 H Creatinine 2.6 H Creat Clearance w eGFR 23.47 POC Glucometer Random Glucose 490 H* Lactic Acid 1.7 Calcium 7.3 L Phosphorus Magnesium Total Bilirubin 0.6 AST 45 H D ALT 28 Alkaline Phosphatase 120 H Creatine Kinase Troponin I Total Protein 5.4 L Albumin 2.0 L Urine Color Yellow Urine Appearance Cloudy Urine pH 5.0 Ur Specific [place] 1.017 Urine Protein Negative Urine Glucose (UA) 1+ H Urine Ketones Negative Urine Blood 2+ H Urine Nitrite Negative Urine Bilirubin Negative Urine Urobilinogen Negative Ur Leukocyte Esterase 1+ H Urine WBC (Auto) 19 Urine RBC (Auto) 34 Ur Epithelial Cells Rare Urine Bacteria Rare Hyaline Casts 24 Urine Mucus Rare Ur Random Sodium Ur Random Potassium Ur Random Chloride Ur Random Urea Nitrogn Urine Creatinine Stool Occult Blood Blood Type Antibody Screen Crossmatch 05/06/17 05/06/17 05/06/17 06:00 06:00 10:27 WBC 21.1 H RBC 2.47 L D Hgb 7.5 L D Hct 23.2 L D MCV 93.9 D MCH 30.5 MCHC 32.5 RDW 17.8 H Plt Count 366 MPV 9.0 Total Counted 100 Neutrophils % No Result Required. Neutrophils % (Manual) 84.0 H Band Neutrophils % 4.0 Lymphocytes % No Result Required. Lymphocytes % (Manual) 3.0 L Monocytes % (Manual) 8 D Nucleated RBC % 2 H Metamyelocytes 1 Hypochromia Platelet Estimate Platelet Comment Polychromasia Basophilic Stippling Anisocytosis 1+ Microcytosis Macrocytosis 1+ Ovalocytes 1+ PT with INR INR PTT (Actin FS) Puncture Site ABG pH ABG pCO2 at Pt Temp ABG pO2 at Pt Temp ABG HCO3 ABG O2 Sat (Measured) ABG O2 Content ABG Base Excess Jabari Test VBG pH POC VBG pCO2 POC VBG pO2 Mixed VBG HCO3 O2 Delivery Device Oxygen Flow Rate Vent Mode Vent Rate Mechanical Rate PEEP Pressure Support Vent Sodium Potassium Chloride Carbon Dioxide Anion Gap BUN Creatinine Creat Clearance w eGFR POC Glucometer > 400 Random Glucose Lactic Acid 1.4 Calcium Phosphorus Magnesium Total Bilirubin AST ALT Alkaline Phosphatase Creatine Kinase Troponin I Total Protein Albumin Urine Color Urine Appearance Urine pH Ur Specific [place] Urine Protein Urine Glucose (UA) Urine Ketones Urine Blood Urine Nitrite Urine Bilirubin Urine Urobilinogen Ur Leukocyte Esterase Urine WBC (Auto) Urine RBC (Auto) Ur Epithelial Cells Urine Bacteria Hyaline Casts Urine Mucus Ur Random Sodium Ur Random Potassium Ur Random Chloride Ur Random Urea Nitrogn Urine Creatinine Stool Occult Blood Blood Type Antibody Screen Crossmatch 05/06/17 05/06/17 05/06/17 12:30 12:30 12:30 WBC RBC Hgb Hct MCV MCH MCHC RDW Plt Count MPV Total Counted Neutrophils % Neutrophils % (Manual) Band Neutrophils % Lymphocytes % Lymphocytes % (Manual) Monocytes % (Manual) Nucleated RBC % Metamyelocytes Hypochromia Platelet Estimate Platelet Comment Polychromasia Basophilic Stippling Anisocytosis Microcytosis Macrocytosis Ovalocytes PT with INR INR PTT (Actin FS) Puncture Site ABG pH ABG pCO2 at Pt Temp ABG pO2 at Pt Temp ABG HCO3 ABG O2 Sat (Measured) ABG O2 Content ABG Base Excess Jabari Test VBG pH POC VBG pCO2 POC VBG pO2 Mixed VBG HCO3 O2 Delivery Device Oxygen Flow Rate Vent Mode Vent Rate Mechanical Rate PEEP Pressure Support Vent Sodium Potassium Chloride Carbon Dioxide Anion Gap BUN Creatinine Creat Clearance w eGFR POC Glucometer Random Glucose Lactic Acid Calcium Phosphorus Magnesium Total Bilirubin AST ALT Alkaline Phosphatase Creatine Kinase Troponin I Total Protein Albumin Urine Color Urine Appearance Urine pH Ur Specific [place] Urine Protein Urine Glucose (UA) Urine Ketones Urine Blood Urine Nitrite Urine Bilirubin Urine Urobilinogen Ur Leukocyte Esterase Urine WBC (Auto) Urine RBC (Auto) Ur Epithelial Cells Urine Bacteria Hyaline Casts Urine Mucus Ur Random Sodium 30 Ur Random Potassium 19.2 Ur Random Chloride 18 Ur Random Urea Nitrogn 839 Urine Creatinine 53.6 Stool Occult Blood Blood Type Antibody Screen Crossmatch 05/06/17 05/06/1705/06/18 16:38 21:50 23:45 WBC 18.7 H RBC 2.96 L Hgb 8.8 L D Hct 27.6 L D MCV 93.4 MCH 29.8 MCHC 31.9 L RDW 17.3 H Plt Count 276 D MPV 8.5 Total Counted 100 Neutrophils % No Result Required. Neutrophils % (Manual) 86.0 H Band Neutrophils % 2.0 Lymphocytes % No Result Required. Lymphocytes % (Manual) 7.0 L D Monocytes % (Manual) 5 Nucleated RBC % 3 H Metamyelocytes Hypochromia Platelet Estimate Platelet Comment Polychromasia Basophilic Stippling Anisocytosis Microcytosis Macrocytosis Ovalocytes PT with INR INR PTT (Actin FS) Puncture Site ABG pH ABG pCO2 at Pt Temp ABG pO2 at Pt Temp ABG HCO3 ABG O2 Sat (Measured) ABG O2 Content ABG Base Excess Jabari Test VBG pH POC VBG pCO2 POC VBG pO2 Mixed VBG HCO3 O2 Delivery Device Oxygen Flow Rate Vent Mode Vent Rate Mechanical Rate PEEP Pressure Support Vent Sodium Potassium Chloride Carbon Dioxide Anion Gap BUN Creatinine Creat Clearance w eGFR POC Glucometer 258.32208 244.78493 Random Glucose Lactic Acid Calcium Phosphorus Magnesium Total Bilirubin AST ALT Alkaline Phosphatase Creatine Kinase Troponin I Total Protein Albumin Urine Color Urine Appearance Urine pH Ur Specific [place] Urine Protein Urine Glucose (UA) Urine Ketones Urine Blood Urine Nitrite Urine Bilirubin Urine Urobilinogen Ur Leukocyte Esterase Urine WBC (Auto) Urine RBC (Auto) Ur Epithelial Cells Urine Bacteria Hyaline Casts Urine Mucus Ur Random Sodium Ur Random Potassium Ur Random Chloride Ur Random Urea Nitrogn Urine Creatinine Stool Occult Blood Blood Type Antibody Screen Crossmatch 05/07/17 05/07/17 05/07/17 06:10 06:35 06:35 WBC 22.4 H RBC 3.15 L Hgb 9.3 L Hct 29.1 L MCV 92.4 MCH 29.6 MCHC 32.1 RDW 17.4 H Plt Count 289 MPV 8.5 Total Counted Neutrophils % No Result Required. Neutrophils % (Manual) Band Neutrophils % Lymphocytes % No Result Required. Lymphocytes % (Manual) Monocytes % (Manual) Nucleated RBC % Metamyelocytes Hypochromia Platelet Estimate Platelet Comment Polychromasia Basophilic Stippling Anisocytosis Microcytosis Macrocytosis Ovalocytes PT with INR 17.60 H INR 1.56 H PTT (Actin FS) 30.1 Puncture Site Right radial ABG pH 7.27 L ABG pCO2 at Pt Temp 44.0 ABG pO2 at Pt Temp 93.8 D ABG HCO3 19.7 L ABG O2 Sat (Measured) 97.1 ABG O2 Content 13.8 L ABG Base Excess -6.3 L Jabari Test Positive VBG pH POC VBG pCO2 POC VBG pO2 Mixed VBG HCO3 O2 Delivery Device Mech vent Oxygen Flow Rate 50% Vent Mode A/c Vent Rate 14 Mechanical Rate PEEP 5.0 Pressure Support Vent 450 Sodium Potassium Chloride Carbon Dioxide Anion Gap BUN Creatinine Creat Clearance w eGFR POC Glucometer Random Glucose Lactic Acid Calcium Phosphorus Magnesium Total Bilirubin AST ALT Alkaline Phosphatase Creatine Kinase Troponin I Total Protein Albumin Urine Color Urine Appearance Urine pH Ur Specific [place] Urine Protein Urine Glucose (UA) Urine Ketones Urine Blood Urine Nitrite Urine Bilirubin Urine Urobilinogen Ur Leukocyte Esterase Urine WBC (Auto) Urine RBC (Auto) Ur Epithelial Cells Urine Bacteria Hyaline Casts Urine Mucus Ur Random Sodium Ur Random Potassium Ur Random Chloride Ur Random Urea Nitrogn Urine Creatinine Stool Occult Blood Blood Type Antibody Screen Crossmatch 05/07/17 06:35 WBC RBC Hgb Hct MCV MCH MCHC RDW Plt Count MPV Total Counted Neutrophils % Neutrophils % (Manual) Band Neutrophils % Lymphocytes % Lymphocytes % (Manual) Monocytes % (Manual) Nucleated RBC % Metamyelocytes Hypochromia Platelet Estimate Platelet Comment Polychromasia Basophilic Stippling Anisocytosis Microcytosis Macrocytosis Ovalocytes PT with INR INR PTT (Actin FS) Puncture Site ABG pH ABG pCO2 at Pt Temp ABG pO2 at Pt Temp ABG HCO3 ABG O2 Sat (Measured) ABG O2 Content ABG Base Excess Jabari Test VBG pH POC VBG pCO2 POC VBG pO2 Mixed VBG HCO3 O2 Delivery Device Oxygen Flow Rate Vent Mode Vent Rate Mechanical Rate PEEP Pressure Support Vent Sodium 138 Potassium 4.4 Chloride 106 Carbon Dioxide 23 Anion Gap 9 BUN 68 H D Creatinine 2.0 H D Creat Clearance w eGFR 31.76 POC Glucometer Random Glucose 159 H D Lactic Acid Calcium 7.4 L Phosphorus 3.5 Magnesium 2.2 Total Bilirubin 0.6 AST 41 H ALT 22 D Alkaline Phosphatase 115 Creatine Kinase Troponin I Total Protein 4.9 L Albumin 1.7 L Urine Color Urine Appearance Urine pH Ur Specific [place] Urine Protein Urine Glucose (UA) Urine Ketones Urine Blood Urine Nitrite Urine Bilirubin Urine Urobilinogen Ur Leukocyte Esterase Urine WBC (Auto) Urine RBC (Auto) Ur Epithelial Cells Urine Bacteria Hyaline Casts Urine Mucus Ur Random Sodium Ur Random Potassium Ur Random Chloride Ur Random Urea Nitrogn Urine Creatinine Stool Occult Blood Blood Type Antibody Screen Crossmatch Problem List - Problems (1) Influenza Code(s): J11.1 - FLU DUE TO UNIDENTIFIED INFLUENZA VIRUS W OTH RESP MANIFEST (2) Respiratory failure Code(s): J96.90 - RESPIRATORY FAILURE, UNSP, UNSP W HYPOXIA OR HYPERCAPNIA (3) Sepsis Code(s): A41.9 - SEPSIS, UNSPECIFIED ORGANISM (4) REBEKA (acute kidney injury) Code(s): N17.9 - ACUTE KIDNEY FAILURE, UNSPECIFIED (5) Anemia Code(s): D64.9 - ANEMIA, UNSPECIFIED Qualifiers: Other causes of anemia: chronic disease, other (6) B12 deficiency Code(s): E53.8 - DEFICIENCY OF OTHER SPECIFIED B GROUP VITAMINS (7) Status post hip surgery Code(s): Z98.890 - OTHER SPECIFIED POSTPROCEDURAL STATES Assessment/Plan An 86 yo, critically ill male with significant macrocytic anemia and no signs of overt GI bleeding. Agree with trasfussion of PRBC to keep Hgb above 7 g/dl PPI IV Carafate via NG (flash NG after each use) Daily CBC and ongoing monitoring for melena, or NGT evidence of bleeding Recommend conservative management unless active GI bleed suspected Will follow
[2017-05-07 08:43] LABS: ALK PHOS 115 U/L (45-117); CHLORIDE 106 mmol/L (98-107); PHOSPHOROUS 3.5 mg/dL (2.5-4.9); POTASSIUM 4.4 mmol/L (3.5-5.1); SODIUM 138 mmol/L (136-145)
[2017-05-07 09:03] LABS: ALBUMIN 1.7 g/dl (3.4-5.0); ANION GAP 9 (8-16); BILIRUBIN,TOTAL 0.6 mg/dL (0.2-1.0); BLOOD UREA NITROGEN 68 mg/dL (7-18); CALCIUM 7.4 mg/dL (8.5-10.1); CO2 23 mmol/L (21-32); GLUCOSE,RANDOM 159 mg/dL (74-106); MAGNESIUM 2.2 mg/dL (1.8-2.4); SGOT/AST 41 U/L (15-37); SGPT/ALT 22 U/L (12-78); TOT PROT 4.9 g/dl (6.4-8.2)
[2017-05-07] MEDS: MUPIROCIN 2% TOPICAL OINTMENT FOR DECOLONIZATION NS SCH ×2 (09:29→21:23)
[2017-05-07] MEDS: MEROPENEM 500 MG PUSH 500 MG/10 ML DISP.SYRIN IVPUSH SCH ×2 (09:30→21:24)
[2017-05-07] MEDS: PANTOPRAZOLE SODIUM 160 MG in DEXTROSE 5%-WATER - 290 ML IVPB SCH (09:30)
[2017-05-07] MEDS: DEXTROSE 5%-0.45% SALINE 1,000 ML IV SCH ×2 (09:31→12:00)
--- NOTE | 2017-05-07 09:39 | PN ---
Progress Note, Physician - Current Medication List Current Medications: Active Medications Acetaminophen (Tylenol Oral Solution -) 650 mg PO Q6H PRN PRN Reason: FEVER Last Admin: 05/06/17 17:14 Dose: 650 mg Norepinephrine Bitartrate 4, (000 mcg/ Dextrose) 500 mls @ 75 mls/hr IV TITR SHANDA; 10 MCG/MIN PRN Reason: Protocol Last Admin: 05/06/17 21:36 Dose: 20 mcg/min, 150 mls/hr Fentanyl 500 mcg/ Dextrose 100 mls @ 0 mls/hr IVPB TITR SHANDA PRN Reason: Titrate Last Admin: 05/06/17 21:37 Dose: 10 mls/hr Midazolam HCl 100 mg/ Sodium (Chloride) 100 mls @ 1 mls/hr IVPB TITR SHANDA; 1 MG/ HR PRN Reason: Protocol Last Admin: 05/06/17 21:37 Dose: 2 mg/hr, 2 mls/hr Pantoprazole Sodium 160 mg/ (Dextrose) 290 mls @ 14.5 mls/hr IVPB Q20H [facility] Last Admin: 05/07/17 09:30 Dose: 14.5 mls/hr Dextrose/Sodium Chloride (D5-1/2ns -) 1,000 mls @ 75 mls/hr IV ASDIR SHANDA Last Admin: 05/07/17 09:31 Dose: 75 mls/hr Vancomycin HCl 1,000 mg/ (Dextrose) 250 mls @ 250 mls/hr IVPB Q48H SHANDA PRN Reason: Protocol Last Admin: 05/06/17 21:39 Dose: 250 mls/hr Meropenem (Merrem (Restricted To Id) -) 500 mg in 10 mls @ 120 mls/hr IVPUSH BID [facility] Last Admin: 05/07/17 09:30 Dose: 120 mls/hr Insulin Aspart (Novolog Vial Sliding Scale -) 1 vial SQ ACHS SHANDA PRN Reason: Protocol Last Admin: 05/07/17 06:34 Dose: 2 units Mupirocin (Bactroban Ointment (For Decolonization) -) 1 applic NS BID [facility] Stop: 05/11/17 12:59 Last Admin: 05/07/17 09:29 Dose: 1 applic Oseltamivir Phosphate (Tamiflu -) 30 mg PO DAILY [facility] Stop: 05/11/17 13:29 Last Admin: 05/06/17 15:37 Dose: 30 mg - Objective Vital Signs: Vital Signs Temperature 98.9 F 05/07/17 08:00 Pulse Rate 98 H 05/07/17 08:00 Respiratory Rate 16 05/07/17 08:00 Blood Pressure 100/61 05/07/17 08:00 O2 Sat by Pulse Oximetry (%) 97 05/07/17 08:00 Labs: CBC, BMP 05/07/17 06:35 05/07/17 06:35 INR, PTT INR 1.56 (0.82-1.09) H 05/07/17 06:35 Problem List - Problems (1) Respiratory failure Code(s): J96.90 - RESPIRATORY FAILURE, UNSP, UNSP W HYPOXIA OR HYPERCAPNIA (2) Sepsis Assessment/Plan: spetic shock on pressors resp failure intubated and sedated lactic acid trending down hemodynamic support with Norepinephrine tamiflu,meropenem Code(s): A41.9 - SEPSIS, UNSPECIFIED ORGANISM (3) REBEKA (acute kidney injury) Assessment/Plan: SOME IMPROVEMENT MONITOR Code(s): N17.9 - ACUTE KIDNEY FAILURE, UNSPECIFIED (4) Anemia Assessment/Plan: gi evaluation noted ppi iv s/p 3 units of prbc maintain H/h > 8 Code(s): D64.9 - ANEMIA, UNSPECIFIED Qualifiers: Other causes of anemia: chronic disease, other (5) Subdural hematoma Assessment/Plan: NS ON CASE NO SURGICAL INTERVENTION AT THIS TIME F/U CT WHEN PT STABLE Code(s): I62.00 - NONTRAUMATIC SUBDURAL HEMORRHAGE, UNSPECIFIED (6) Influenza Assessment/Plan: ON TAMIFLU Code(s): J11.1 - FLU DUE TO UNIDENTIFIED INFLUENZA VIRUS W OTH RESP MANIFEST
--- NOTE | 2017-05-07 10:14 | PN ---
Progress Note (short form) - Note Progress Note: NEUROSURGERY In ICU PE: T 99.2; BP 97/62 On pressors HEENT- NC/AT; Neck- supple; Cor- tachy, irreg; Lungs- decreased BS at bases; Abd -benign; Ext- no sign of SVT; pulses 2+ Intubated, sedated CN- B pupils 2.5 mm sluggish, + gag; Motor- minimal movement to pain; Sensation - difficult to assess; DTR- 1+; toes equivocal WBC 22.4; Hgb 9.3; INR 1.61; Cr 2.0 Influenza A +; blood culture pending Head CT (c/w 12/2016 scan): Unchanged moderate B cerebral atrophy and moderate periventricular small vessel dz; new B convexity 7 mm chronic SDH with R > L calcified subdural membrane; minimal mass effect; no shift Influenza A+/sepsis on coverage (vanco and meropenem) Afib with RVR ATN/renal insufficiency/prerenal azotemia Small B chronic SDH with minimal mass effect and unlikely symptomatic No neurosurgical intervention indicated nor recommended in this elderly gentleman who is septic with respiratory and renal insufficiency, probable GIB, and in Afib with RVR F/u head CT when hemodynamically/medically stable to assess stability of SDH, though doubt need for intervention
[2017-05-07] MEDS ORDERED: PT OWN MED DRAWER 7, Y5N ONE (10:22)
[2017-05-07] MEDS: OSELTAMIVIR PHOSPHATE 30 MG CAPSULE PO SCH (10:29)
--- NOTE | 2017-05-07 11:03 | CONS ---
DATE OF CONSULTATION: 05/06/2017 REQUESTING PHYSICIAN: Heather Peres M.D. CONSULTING PHYSICIAN: Marshall Colón M.D., neurosurgery CHIEF COMPLAINT: Acute respiratory failure. HISTORY OF PRESENT ILLNESS: The patient is an 86-year-old male with history of hypertension, and dementia, who was a senior care resident, who was brought in for altered mental status and dyspnea. Because of his respiratory insufficiency and altered mental status, he was intubated as well as desaturated. He was intubated in the emergency room. He was found to be influenza A positive, and being treated for such. He was also covered by broad-spectrum IV antibiotics for sepsis. He was hypotensive initially, with a temperature of 94.2. He was put on norepinephrine drip subsequently. His O2 saturation has improved on mechanical ventilation. He has low-grade temperature and his blood pressure has somewhat improved as well. His mental status remained depressed. CT scan demonstrated bilateral subdural collection, and a neurosurgical consult was called. PAST MEDICAL HISTORY: Hypertension. Dementia. CURRENT MEDICATIONS: Include meropenem, vancomycin, Bactroban, Versed, insulin sliding scale, Tamiflu, fentanyl, Protonix. ALLERGIES: No known drug allergies. FAMILY HISTORY: Not available. SOCIAL HISTORY: He was not reported that he smoke or drank. He is a senior care resident. He is retired. REVIEW OF SYSTEMS: Otherwise negative for other major significant constitutional, head/neck, cardiovascular, pulmonary, gastrointestinal, genitourinary, endocrinologic, neurologic, or psychological problems except for the above. PHYSICAL EXAMINATION: General: He is intubated and sedated. Vital signs: Temperature 99.7, blood pressure 101/46, pulse rate 135, O2 saturation 95% on 50% FiO2. HEENT: Normocephalic, atraumatic, anicteric. Neck: Supple with no lymphadenopathy, no carotid bruit. Coronary: Demonstrated irregular rhythm. Lungs: Decreased breath sounds at the bases. Abdomen: Benign. Extremities: There was no sign of DVT. Pulses are 2+. Neurologic: He is sedated and not following commands. He is intubated. Cranial nerves examination shows pupils to be 2.5 mm bilaterally and sluggish. He does have a gag. Motor examination shows minimal movement to pain or voice. Sensory examination is difficult to assess. Deep tendon reflexes are 1+ throughout. Toes are equivocal. LABORATORY EXAMINATION: Sodium 140, potassium 5.3, BUN and creatinine are 98 and 2.6 respectively. Lactic acid was 4.5 previously and has decreased to 1.4. White blood cell count is 21.1 and hemoglobin is 7.5 after transfusion. Platelet count is 366,000. INR is 1.61 and PTT is 24.3. Urinalysis shows 1+ leukocyte esterase with 19 WBCs and 34 WBCs. Urine and blood culture are both pending. Influenza A antigens positive. CT scan of the head was done earlier today was compared to a CT scan from December 2016, there remains moderate cerebral atrophy and moderate periventricular small vessel disease. On the new scan, there is bilateral subdural chronic hematoma, 7 mm in mass diameter with minimal mass effect and no midline shift. This is most notable over the frontal convexity greater than parietal convexity. There is linear hyperdensity in subdural space, right greater than left, consistent with subdural membrane. IMPRESSION: 1. 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 2. Moderate cerebral atrophy and moderate periventricular small vessel disease. 3. Influenza A with respiratory failure. 4. Sepsis with elevated lactic acid and hypotension/tachycardia. 5. Atrial fibrillation with rapid ventricular response. 6. Acute renal insufficiency, likely prerenal azotemia. 7. Anemia, with probable gastrointestinal bleed. RECOMMENDATION: The patient presents with multisystem problems. He likely has influenza, as well as sepsis. Unfortunately, he has not been hemodynamically stable and requires pressors for hemodynamic support. He remains in atrial fibrillation with rapid ventricular response. He also has in addition to the respiratory failure, he also has prerenal azotemia. In summary, he has multisystem insufficiency and small bilateral chronic subdural hematoma is probably the least of his concern at this time. No neurosurgical intervention is indicated nor recommended at this time. Once the patient stabilizes from his respiratory, infectious disease, cardiac, GI, and renal standpoint, a repeat CT scan should be obtained to ascertain the stability of the chronic subdural fluid collection, which is likely small bilateral subdural hematoma with some subdural membrane. Curiously, his prior CT scan from December did not show it. There is the possibility that these might be subdural hygroma. In any event, the subdural fluid collection is mild and likely asymptomatic, and this gentleman is too ill to consider any neurosurgical intervention anyway. MARSHALL COLÓN M.D. HENRIK/[id number] AFSANEH
[2017-05-07] MEDS ORDERED: INSULIN (NOVOLOG) ASPART 100 UNITS/ML 10ML VIAL ONE (11:33)
--- NOTE | 2017-05-07 13:04 | PN ---
Teaching Attending Note Name of Resident: Gabriel Goff ATTENDING PHYSICIAN STATEMENT I saw and evaluated the patient. I reviewed the resident's note and discussed the case with the resident. I agree with the resident's findings and plan as documented. SUBJECTIVE: Pt seen and examined in the ICU. Remains intubated, sedated on levophed gtt. Vented on volume assist control with 50% FiO2, PEEP 5. OBJECTIVE: Last Vital Signs Temp Pulse Resp BP Pulse Ox 99.6 F 109 H 14 94/52 100 05/07/17 12:00 05/07/17 12:00 05/07/17 12:00 05/07/17 12:00 05/07/17 08:00 Intake & Output 05/04/17 05/05/17 05/06/17 05/07/17 23:59 23:59 23:59 23:59 Intake Total 4805 2744 Output Total 1025 600 Balance 3780 2144 Weight 63.503 kg 55.429 kg 61.235 kg Gen: intubated, sedated Heart: tachycardic, regular Lung: scattered rhonchi Abd: soft, nontender Ext: sacral edema, R hip incision clean, healed without erythema, fluctuance CBC, BMP 05/07/17 06:35 05/07/17 06:35 Active Medications Acetaminophen (Tylenol Oral Solution -) 650 mg PO Q6H PRN PRN Reason: FEVER Last Admin: 05/06/17 17:14 Dose: 650 mg Fentanyl 500 mcg/ Dextrose 100 mls @ 0 mls/hr IVPB TITR SHANDA PRN Reason: Titrate Last Admin: 05/06/17 21:37 Dose: 10 mls/hr Midazolam HCl 100 mg/ Sodium (Chloride) 100 mls @ 1 mls/hr IVPB TITR SHANDA; 1 MG/ HR PRN Reason: Protocol Last Admin: 05/06/17 21:37 Dose: 2 mg/hr, 2 mls/hr Dextrose/Sodium Chloride (D5-1/2ns -) 1,000 mls @ 75 mls/hr IV ASDIR SHANDA Last Admin: 05/07/17 12:00 Dose: Not Given Vancomycin HCl 1,000 mg/ (Dextrose) 250 mls @ 250 mls/hr IVPB Q48H SHANDA PRN Reason: Protocol Last Admin: 05/06/17 21:39 Dose: 250 mls/hr Meropenem (Merrem (Restricted To Id) -) 500 mg in 10 mls @ 120 mls/hr IVPUSH BID [facility] Last Admin: 05/07/17 09:30 Dose: 120 mls/hr Norepinephrine Bitartrate 8, (000 mcg/ Dextrose) 500 mls @ 6.88 mls/hr IV ASDIR SHANDA; 0.03 MCG/KG/MIN PRN Reason: Protocol Insulin Aspart (Novolog Vial Sliding Scale -) 1 vial SQ ACHS SHANDA PRN Reason: Protocol Last Admin: 05/07/17 11:39 Dose: 4 units Mupirocin (Bactroban Ointment (For Decolonization) -) 1 applic NS BID [facility] Stop: 05/11/17 12:59 Last Admin: 05/07/17 09:29 Dose: 1 applic Oseltamivir Phosphate (Tamiflu -) 30 mg PO DAILY [facility] Stop: 05/11/17 13:29 Last Admin: 05/07/17 10:29 Dose: 30 mg Pantoprazole Sodium (Protonix Iv) 40 mg IVPUSH BID [facility] ASSESSMENT AND PLAN: Acute Hypoxic Respiratory Failure Influenza A Pneumonia Septic Shock Acute Kidney Injury Lactic Acidosis Anemia s/p PRBC transfusions Subdural Hematoma HTN Dementia Recent R Hip Fracture s/p surgery - antibiotics, tamiflu per ID - f/u cultures - IVF to keep CVP 8-12 - titrate pressors to maintain MAP >65 - monitor urine output, creatinine - hold anticoagulation - can change protonix to BID, no evidence of active bleeding - monitor H/H - hold sedation in AM to assess mental status - spontaneous breathing trials as tolerated when mental status - enteral feeds - DVT/GI prophylaxis - continue ICU monitoring critical care time spent in reviewing chart, evaluating patient and formulating plan 35 min
--- NOTE | 2017-05-07 13:45 | PN ---
Physical Exam: SUBJECTIVE: Patient seen and examined Patient intubated/sedated/on pressors. Vent Settings- Rate 14, TV 450, FIO2 40%, PEEP 5 OBJECTIVE: Vital Signs Period Temp Pulse Resp BP Sys/[place] Pulse Ox Last 24 Hr 98.2 F-99.7 F 89-135 10-16 79-112/47-89 95-100 Gen: elderly, frail man, sedated, intubated HEENT:+ cough/gag to deep suction, PULM: clear to auscultation bilaterally , no wheezes, CV; tachycardic, s1, s2, regular rhythm, no m/r/g appreciated ABD: soft, NT, ND, normal bowel sounds EXT: no edema, 2+ pulses Neuro: Sedated, Intubated Laboratory Results - last 24 hr 05/05/17 05/06/17 05/06/17 22:10 06:00 10:27 WBC RBC Hgb Hct MCV MCH MCHC RDW Plt Count MPV Total Counted 100 Neutrophils % Neutrophils % (Manual) 84.0 H Band Neutrophils % 4.0 Lymphocytes % Lymphocytes % (Manual) 3.0 L Monocytes % (Manual) 8 D Nucleated RBC % 2 H Metamyelocytes 1 Anisocytosis 1+ Macrocytosis 1+ Ovalocytes 1+ PT with INR INR PTT (Actin FS) Puncture Site ABG pH ABG pCO2 at Pt Temp ABG pO2 at Pt Temp ABG HCO3 ABG O2 Sat (Measured) ABG O2 Content ABG Base Excess Jabari Test O2 Delivery Device Oxygen Flow Rate Vent Mode Vent Rate PEEP Pressure Support Vent Sodium Potassium Chloride Carbon Dioxide Anion Gap BUN Creatinine Creat Clearance w eGFR POC Glucometer > 400 Random Glucose Calcium Phosphorus Magnesium Total Bilirubin AST ALT Alkaline Phosphatase Total Protein Albumin Ur Random Sodium Ur Random Potassium Ur Random Chloride Ur Random Urea Nitrogn Urine Creatinine Blood Type B POSITIVE Antibody Screen Negative Crossmatch See Detail 05/06/17 05/06/17 05/06/17 12:30 12:30 12:30 WBC RBC Hgb Hct MCV MCH MCHC RDW Plt Count MPV Total Counted Neutrophils % Neutrophils % (Manual) Band Neutrophils % Lymphocytes % Lymphocytes % (Manual) Monocytes % (Manual) Nucleated RBC % Metamyelocytes Anisocytosis Macrocytosis Ovalocytes PT with INR INR PTT (Actin FS) Puncture Site ABG pH ABG pCO2 at Pt Temp ABG pO2 at Pt Temp ABG HCO3 ABG O2 Sat (Measured) ABG O2 Content ABG Base Excess Jabari Test O2 Delivery Device Oxygen Flow Rate Vent Mode Vent Rate PEEP Pressure Support Vent Sodium Potassium Chloride Carbon Dioxide Anion Gap BUN Creatinine Creat Clearance w eGFR POC Glucometer Random Glucose Calcium Phosphorus Magnesium Total Bilirubin AST ALT Alkaline Phosphatase Total Protein Albumin Ur Random Sodium 30 Ur Random Potassium 19.2 Ur Random Chloride 18 Ur Random Urea Nitrogn 839 Urine Creatinine 53.6 Blood Type Antibody Screen Crossmatch 05/06/17 05/06/17 05/06/17 16:38 21:50 23:45 WBC 18.7 H RBC 2.96 L Hgb 8.8 L D Hct 27.6 L D MCV 93.4 MCH 29.8 MCHC 31.9 L RDW 17.3 H Plt Count 276 D MPV 8.5 Total Counted 100 Neutrophils % No Result Required. Neutrophils % (Manual) 86.0 H Band Neutrophils % 2.0 Lymphocytes % No Result Required. Lymphocytes % (Manual) 7.0 L D Monocytes % (Manual) 5 Nucleated RBC % 3 H Metamyelocytes Anisocytosis Macrocytosis Ovalocytes PT with INR INR PTT (Actin FS) Puncture Site ABG pH ABG pCO2 at Pt Temp ABG pO2 at Pt Temp ABG HCO3 ABG O2 Sat (Measured) ABG O2 Content ABG Base Excess Jabari Test O2 Delivery Device Oxygen Flow Rate Vent Mode Vent Rate PEEP Pressure Support Vent Sodium Potassium Chloride Carbon Dioxide Anion Gap BUN Creatinine Creat Clearance w eGFR POC Glucometer 258.37967 244.69020 Random Glucose Calcium Phosphorus Magnesium Total Bilirubin AST ALT Alkaline Phosphatase Total Protein Albumin Ur Random Sodium Ur Random Potassium Ur Random Chloride Ur Random Urea Nitrogn Urine Creatinine Blood Type Antibody Screen Crossmatch 05/07/17 05/07/17 05/07/17 06:10 06:35 06:35 WBC 22.4 H RBC 3.15 L Hgb 9.3 L Hct 29.1 L MCV 92.4 MCH 29.6 MCHC 32.1 RDW 17.4 H Plt Count 289 MPV 8.5 Total Counted Neutrophils % No Result Required. Neutrophils % (Manual) Band Neutrophils % Lymphocytes % No Result Required. Lymphocytes % (Manual) Monocytes % (Manual) Nucleated RBC % Metamyelocytes Anisocytosis Macrocytosis Ovalocytes PT with INR 17.60 H INR 1.56 H PTT (Actin FS) 30.1 Puncture Site Right radial ABG pH 7.27 L ABG pCO2 at Pt Temp 44.0 ABG pO2 at Pt Temp 93.8 D ABG HCO3 19.7 L ABG O2 Sat (Measured) 97.1 ABG O2 Content 13.8 L ABG Base Excess -6.3 L Jabari Test Positive O2 Delivery Device Mech vent Oxygen Flow Rate 50% Vent Mode A/c Vent Rate 14 PEEP 5.0 Pressure Support Vent 450 Sodium Potassium Chloride Carbon Dioxide Anion Gap BUN Creatinine Creat Clearance w eGFR POC Glucometer Random Glucose Calcium Phosphorus Magnesium Total Bilirubin AST ALT Alkaline Phosphatase Total Protein Albumin Ur Random Sodium Ur Random Potassium Ur Random Chloride Ur Random Urea Nitrogn Urine Creatinine Blood Type Antibody Screen Crossmatch 05/07/17 06:35 WBC RBC Hgb Hct MCV MCH MCHC RDW Plt Count MPV Total Counted Neutrophils % Neutrophils % (Manual) Band Neutrophils % Lymphocytes % Lymphocytes % (Manual) Monocytes % (Manual) Nucleated RBC % Metamyelocytes Anisocytosis Macrocytosis Ovalocytes PT with INR INR PTT (Actin FS) Puncture Site ABG pH ABG pCO2 at Pt Temp ABG pO2 at Pt Temp ABG HCO3 ABG O2 Sat (Measured) ABG O2 Content ABG Base Excess Jabari Test O2 Delivery Device Oxygen Flow Rate Vent Mode Vent Rate PEEP Pressure Support Vent Sodium 138 Potassium 4.4 Chloride 106 Carbon Dioxide 23 Anion Gap 9 BUN 68 H D Creatinine 2.0 H D Creat Clearance w eGFR 31.76 POC Glucometer Random Glucose 159 H D Calcium 7.4 L Phosphorus 3.5 Magnesium 2.2 Total Bilirubin 0.6 AST 41 H ALT 22 D Alkaline Phosphatase 115 Total Protein 4.9 L Albumin 1.7 L Ur Random Sodium Ur Random Potassium Ur Random Chloride Ur Random Urea Nitrogn Urine Creatinine Blood Type Antibody Screen Crossmatch Active Medications Generic Name Dose Route Start Last Admin Trade Name Freq PRN Reason Stop Dose Admin Acetaminophen 650 mg 05/06/17 17:00 05/06/17 17:14 Tylenol Oral Solution - PO 650 mg Q6H PRN Administration FEVER Fentanyl 500 mcg/ Dextrose 100 mls @ 0 mls/hr 05/05/17 20:30 05/06/17 21:37 IVPB 10 mls/hr TITR SHANDA Administration Titrate Midazolam HCl 100 mg/ Sodium 100 mls @ 1 mls/hr 05/05/17 21:30 05/06/17 21:37 Chloride IVPB 2 mg/hr TITR SHANDA 2 mls/hr Protocol Administration 1 MG/HR Dextrose/Sodium Chloride 1,000 mls @ 75 mls/hr 05/06/17 12:00 05/07/17 12:00 D5-1/2ns - IV Not Given ASDIR SHANDA Vancomycin HCl 1,000 mg/ 250 mls @ 250 mls/hr 05/06/17 22:00 05/06/17 21:39 Dextrose IVPB 250 mls/hr Q48H SHANDA Administration Protocol Meropenem 500 mg in 10 mls @ 120 mls/hr 05/06/17 14:45 05/07/17 09:30 Merrem (Restricted To Id) - IVPUSH 120 mls/hr BID SHANDA Administration Norepinephrine Bitartrate 8, 500 mls @ 6.88 mls/hr 05/07/17 11:45 000 mcg/ Dextrose IV ASDIR SHANDA Protocol 0.03 MCG/KG/MIN Insulin Aspart 1 vial 05/06/17 16:30 05/07/17 11:39 Novolog Vial Sliding Scale - SQ 4 units ACHS SHANDA Administration Protocol Mupirocin 1 applic 05/06/17 13:00 05/07/17 09:29 Bactroban Ointment (For Decolonization) - NS 05/11/17 12:59 1 applic BID SHANDA Administration Oseltamivir Phosphate 30 mg 05/06/17 13:30 05/07/17 10:29 Tamiflu - PO 05/11/17 13:29 30 mg DAILY SHANDA Administration Pantoprazole Sodium 40 mg 05/07/17 22:00 Protonix Iv IVPUSH BID [facility] ASSESSMENT/PLAN: #ID Septic shock -ID on board, Dr. Garcia -Follow abx recommendations from ID -Continue Vanc/Meropenem/Tamiflu -Continue Levophed, Fentanyl, and Versed, Keep MAP >65 #CV Atrial fibrillation with RVR -Hold AC in the setting of Anemia & subdural bleed -Cardiology on board, Dr. Mays #Pulm Acute respiratory failure -Intubated/sedated -Continue Levophed, Fentanyl, and Versed -Continue ventilatory support #Neuro Subdural bleeds -Evaluated by neurosurgery, No recommendation for intervention at this time. #Heme Anemia of unknown etiology, possible GI bleed -Hgb stable, responded well -Monitor H/H -Transfuse as needed #Renal REBEKA, likely prerenal vs ATN from sepsis -Continue D5 1/2 NS @ 75 cc/hr -Monitor Urine lytes, BUN, Cr. #Endo Hyperglycemia -BGM ACHS -ISS ACHS #FEN/GI -D5 1/2 NS @ 75 cc/hr -Monitor BMPs -Start Tube feeds, patient has NG tube. #PPx -Protnoix 40 mg IV BID -SCDs, no ac in the setting of anemia and subdural bleeds Visit type - Emergency Visit Emergency Visit: Yes ED Registration Date: 05/05/17 Care time: The patient presented to the Emergency Department on the above date and was hospitalized for further evaluation of their emergent condition. - New Patient This patient is new to me today: No - Critical Care Critical Care patient: Yes Total Critical Care Time (in minutes): 35 Critical Care Statement: The care of this patient involved high complexity decision making to prevent further life threatening deterioration of the patient 's condition and/or to evaluate & treat vital organ system(s) failure or risk of failure.
--- NOTE | 2017-05-07 14:03 | PN ---
Progress Note, Physician History of Present Illness: Sedated and intubated, remains in persistent afib with episodes of RVR on Levophed gtt. - Current Medication List Current Medications: Active Medications Acetaminophen (Tylenol Oral Solution -) 650 mg PO Q6H PRN PRN Reason: FEVER Last Admin: 05/06/17 17:14 Dose: 650 mg Fentanyl 500 mcg/ Dextrose 100 mls @ 0 mls/hr IVPB TITR SHANDA PRN Reason: Titrate Last Admin: 05/06/17 21:37 Dose: 10 mls/hr Midazolam HCl 100 mg/ Sodium (Chloride) 100 mls @ 1 mls/hr IVPB TITR SHANDA; 1 MG/ HR PRN Reason: Protocol Last Admin: 05/06/17 21:37 Dose: 2 mg/hr, 2 mls/hr Dextrose/Sodium Chloride (D5-1/2ns -) 1,000 mls @ 75 mls/hr IV ASDIR SHANDA Last Admin: 05/07/17 12:00 Dose: Not Given Vancomycin HCl 1,000 mg/ (Dextrose) 250 mls @ 250 mls/hr IVPB Q48H SHANDA PRN Reason: Protocol Last Admin: 05/06/17 21:39 Dose: 250 mls/hr Meropenem (Merrem (Restricted To Id) -) 500 mg in 10 mls @ 120 mls/hr IVPUSH BID [facility] Last Admin: 05/07/17 09:30 Dose: 120 mls/hr Norepinephrine Bitartrate 8, (000 mcg/ Dextrose) 500 mls @ 6.88 mls/hr IV ASDIR SHANDA; 0.03 MCG/KG/MIN PRN Reason: Protocol Insulin Aspart (Novolog Vial Sliding Scale -) 1 vial SQ ACHS SHANDA PRN Reason: Protocol Last Admin: 05/07/17 11:39 Dose: 4 units Mupirocin (Bactroban Ointment (For Decolonization) -) 1 applic NS BID [facility] Stop: 05/11/17 12:59 Last Admin: 05/07/17 09:29 Dose: 1 applic Oseltamivir Phosphate (Tamiflu -) 30 mg PO DAILY [facility] Stop: 05/11/17 13:29 Last Admin: 05/07/17 10:29 Dose: 30 mg Pantoprazole Sodium (Protonix Iv) 40 mg IVPUSH BID [facility] - Objective Vital Signs: Vital Signs Temperature 99.6 F 05/07/17 12:00 Pulse Rate 109 H 05/07/17 12:00 Respiratory Rate 14 05/07/17 12:00 Blood Pressure 94/52 05/07/17 12:00 O2 Sat by Pulse Oximetry (%) 100 05/07/17 08:00 Constitutional: Yes: No Distress, Calm, Thin Neck: Yes: Supple Cardiovascular: Yes: Tachycardia, Pulse Irregular Respiratory: Yes: Intubated, Mechanically Ventilated, Rhonchi Gastrointestinal: Yes: Normal Bowel Sounds, Soft Edema: No Labs: CBC, BMP 05/07/17 06:35 05/07/17 06:35 INR, PTT INR 1.56 (0.82-1.09) H 05/07/17 06:35 - ....Imaging Chest X-ray: Report Reviewed (Left lung base PNA with small effusion) EKG: Report Reviewed (Persistent Afib) Problem List - Problems (1) Persistent atrial fibrillation with rapid ventricular response Code(s): I48.1 - PERSISTENT ATRIAL FIBRILLATION (2) Influenza Code(s): J11.1 - FLU DUE TO UNIDENTIFIED INFLUENZA VIRUS W OTH RESP MANIFEST (3) Respiratory failure Code(s): J96.90 - RESPIRATORY FAILURE, UNSP, UNSP W HYPOXIA OR HYPERCAPNIA Qualifiers: Chronicity: acute Respiratory failure complication: hypoxia Qualified Code(s): J96.01 - Acute respiratory failure with hypoxia (4) Subdural hematoma Code(s): I62.00 - NONTRAUMATIC SUBDURAL HEMORRHAGE, UNSPECIFIED (5) Pneumonia Code(s): J18.9 - PNEUMONIA, UNSPECIFIED ORGANISM Qualifiers: Pneumonia type: due to unspecified organism Laterality: left Lung location: lower lobe of lung Qualified Code(s): J18.1 - Lobar pneumonia, unspecified organism (6) [id number] kidney injury Code(s): N17.9 - ACUTE KIDNEY FAILURE, UNSPECIFIED; N18.9 - CHRONIC KIDNEY DISEASE, UNSPECIFIED Qualifiers: Chronic kidney disease stage: stage 3 (moderate) Assessment/Plan 05/06/2017 Echo: Normal LV size and fxn, mod RUSSELL, mod-severe TR, mild MR, [place], [place] 1. Acute hypoxic respiratory failure, Influenza A, PNA, septic shock with lactic acidosis 2. Persistent afib with RVR [id number] not on a/c due to h/o SDH 2. CAD with evidence of demand ischemic injury, angina pectoris 3. Diastolic LV dysfunction with class 0-I nNYHA classification LV failure, compensated/hypovolemic 4. Profound anemia, source to be determined, post transfusion 5. Acute on chronic kidney disease improving 6. Hyperglycemia/DM 7. History of HTN, currently hypotensive/septic shock 8. Hyperkalemia resolved 9. Chronic SDH PLAN: 1. Antibiotics and Tamiflu as per ID team, f/u C&S 2. Pressors to maintain MAP > 65 and attempt to wean off as tolerated 3. Monitor Hg and transfuse as needed maintaining Hg equal or > 8.0 4. Ventilator management as per the ICU team with sedation holiday and SBT as tolerated, enteral feeds, DVT/GI prophylaxis
[2017-05-07] MEDS: NOREPINEPHRINE BITARTRATE 8,000 MCG in DEXTROSE 5%-WATER - 492 ML IV SCH (14:13)
--- NOTE | 2017-05-07 15:29 | PN ---
Progress Note, Physician History of Present Illness: continues to be intubated - Current Medication List Current Medications: Active Medications Acetaminophen (Tylenol Oral Solution -) 650 mg PO Q6H PRN PRN Reason: FEVER Last Admin: 05/06/17 17:14 Dose: 650 mg Fentanyl 500 mcg/ Dextrose 100 mls @ 0 mls/hr IVPB TITR SHANDA PRN Reason: Titrate Last Admin: 05/06/17 21:37 Dose: 10 mls/hr Midazolam HCl 100 mg/ Sodium (Chloride) 100 mls @ 1 mls/hr IVPB TITR SHANDA; 1 MG/ HR PRN Reason: Protocol Last Admin: 05/06/17 21:37 Dose: 2 mg/hr, 2 mls/hr Dextrose/Sodium Chloride (D5-1/2ns -) 1,000 mls @ 75 mls/hr IV ASDIR SHANDA Last Admin: 05/07/17 12:00 Dose: Not Given Vancomycin HCl 1,000 mg/ (Dextrose) 250 mls @ 250 mls/hr IVPB Q48H SHANDA PRN Reason: Protocol Last Admin: 05/06/17 21:39 Dose: 250 mls/hr Meropenem (Merrem (Restricted To Id) -) 500 mg in 10 mls @ 120 mls/hr IVPUSH BID [facility] Last Admin: 05/07/17 09:30 Dose: 120 mls/hr Norepinephrine Bitartrate 8, (000 mcg/ Dextrose) 500 mls @ 6.88 mls/hr IV ASDIR SHANDA; 0.03 MCG/KG/MIN PRN Reason: Protocol Last Admin: 05/07/17 14:13 Dose: 0.03 mcg/kg/min, 6.88 mls/hr Insulin Aspart (Novolog Vial Sliding Scale -) 1 vial SQ ACHS SHANDA PRN Reason: Protocol Last Admin: 05/07/17 11:39 Dose: 4 units Mupirocin (Bactroban Ointment (For Decolonization) -) 1 applic NS BID [facility] Stop: 05/11/17 12:59 Last Admin: 05/07/17 09:29 Dose: 1 applic Oseltamivir Phosphate (Tamiflu -) 30 mg PO DAILY [facility] Stop: 05/11/17 13:29 Last Admin: 05/07/17 10:29 Dose: 30 mg Pantoprazole Sodium (Protonix Iv) 40 mg IVPUSH BID SHANDA - Objective Vital Signs: Vital Signs Temperature 99.9 F H 05/07/17 14:00 Pulse Rate 99 H 05/07/17 14:13 Respiratory Rate 14 05/07/17 14:49 Blood Pressure 107/59 05/07/17 14:13 O2 Sat by Pulse Oximetry (%) 100 05/07/17 08:00 Constitutional: Yes: Other Cardiovascular: Yes: Pulse Irregular Respiratory: Yes: Intubated, Mechanically Ventilated Gastrointestinal: Yes: Normal Bowel Sounds, Soft Genitourinary: Yes: [place] Present Neurological: Yes: Other Labs: CBC, BMP 05/07/17 06:35 05/07/17 06:35 INR, PTT INR 1.56 (0.82-1.09) H 05/07/17 06:35 Assessment/Plan Problem List - Problems (1) Sepsis Code(s): A41.9 - SEPSIS, UNSPECIFIED ORGANISM (2) REBEKA (acute kidney injury) Code(s): N17.9 - ACUTE KIDNEY FAILURE, UNSPECIFIED (3) Anemia Code(s): D64.9 - ANEMIA, UNSPECIFIED Qualifiers: Other causes of anemia: chronic disease, other (4) Respiratory failure Code(s): J96.90 - RESPIRATORY FAILURE, UNSP, UNSP W HYPOXIA OR HYPERCAPNIA wound infection influenza a afib with rapid rvr leukocytosis wbc has jumped will see how it turns out tomorrow plan continue current abx continue as per icu cx not growing anything specific previous wound cx noted monitor pressors support cc time 40
[2017-05-07 15:32] LABS: ANISOCYTOSIS 1+; MACROCYTOSIS 1+; PLATELET ESTIMATE ADEQUATE
[2017-05-07] MEDS: FENTANYL INJECTION 500 MCG in DEXTROSE 5%-WATER - 90 ML IVPB SCH ×2 (16:00→21:23)
--- NOTE | 2017-05-07 17:39 | PN ---
Progress Note, Physician History of Present Illness: Pt seen and examined at bedside. He remains in the ICU. Pt remains intubated. - Current Medication List Current Medications: Active Medications Acetaminophen (Tylenol Oral Solution -) 650 mg PO Q6H PRN PRN Reason: FEVER Last Admin: 05/06/17 17:14 Dose: 650 mg Chlorhexidine Gluconate (Peridex -) 15 ml MM BID SHANDA Fentanyl 500 mcg/ Dextrose 100 mls @ 0 mls/hr IVPB TITR SHANDA PRN Reason: Titrate Last Admin: 05/07/17 16:00 Dose: 13 mls/hr Midazolam HCl 100 mg/ Sodium (Chloride) 100 mls @ 1 mls/hr IVPB TITR SHANDA; 1 MG/ HR PRN Reason: Protocol Last Admin: 05/06/17 21:37 Dose: 2 mg/hr, 2 mls/hr Dextrose/Sodium Chloride (D5-1/2ns -) 1,000 mls @ 75 mls/hr IV ASDIR SHANDA Last Admin: 05/07/17 12:00 Dose: Not Given Vancomycin HCl 1,000 mg/ (Dextrose) 250 mls @ 250 mls/hr IVPB Q48H SHANDA PRN Reason: Protocol Last Admin: 05/06/17 21:39 Dose: 250 mls/hr Meropenem (Merrem (Restricted To Id) -) 500 mg in 10 mls @ 120 mls/hr IVPUSH BID [facility] Last Admin: 05/07/17 09:30 Dose: 120 mls/hr Norepinephrine Bitartrate 8, (000 mcg/ Dextrose) 500 mls @ 6.88 mls/hr IV ASDIR SHANDA; 0.03 MCG/KG/MIN PRN Reason: Protocol Last Admin: 05/07/17 14:13 Dose: 0.03 mcg/kg/min, 6.88 mls/hr Insulin Aspart (Novolog Vial Sliding Scale -) 1 vial SQ ACHS SHANDA PRN Reason: Protocol Last Admin: 05/07/17 17:20 Dose: 6 units Mupirocin (Bactroban Ointment (For Decolonization) -) 1 applic NS BID [facility] Stop: 05/11/17 12:59 Last Admin: 05/07/17 09:29 Dose: 1 applic Oseltamivir Phosphate (Tamiflu -) 30 mg PO DAILY [facility] Stop: 01/28/18 13:29 Last Admin: 05/07/17 10:29 Dose: 30 mg Pantoprazole Sodium (Protonix Iv) 40 mg IVPUSH BID SHANDA - Objective Vital Signs: Vital Signs Temperature 100.0 F H 05/07/17 16:00 Pulse Rate 113 H 05/07/17 17:17 Respiratory Rate 14 05/07/17 17:17 Blood Pressure 89/62 05/07/17 17:17 O2 Sat by Pulse Oximetry (%) 100 05/07/17 08:00 Constitutional: Yes: Calm Eyes: Yes: Conjunctiva Clear HENT: Yes: Atraumatic Neck: Yes: Supple Cardiovascular: Yes: S1, S2 Respiratory: Yes: Mechanically Ventilated Gastrointestinal: Yes: Soft Genitourinary: Yes: [place] Present Musculoskeletal: Yes: Muscle Weakness Edema: No Neurological: Yes: Lethargy Labs: CBC, BMP 05/07/17 06:35 05/07/17 06:35 INR, PTT INR 1.56 (0.82-1.09) H 05/07/17 06:35 Problem List - Problems (1) [id number]-klerywt kidney injury Code(s): N17.9 - ACUTE KIDNEY FAILURE, UNSPECIFIED; N18.9 - CHRONIC KIDNEY DISEASE, UNSPECIFIED Qualifiers: Chronic kidney disease stage: stage 3 (moderate) (2) Influenza Code(s): J11.1 - FLU DUE TO UNIDENTIFIED INFLUENZA VIRUS W OTH RESP MANIFEST (3) Respiratory failure Code(s): J96.90 - RESPIRATORY FAILURE, UNSP, UNSP W HYPOXIA OR HYPERCAPNIA Qualifiers: Chronicity: acute Respiratory failure complication: hypoxia Qualified Code(s): J96.01 - Acute respiratory failure with hypoxia (4) Sepsis Code(s): A41.9 - SEPSIS, UNSPECIFIED ORGANISM (5) REBEKA (acute kidney injury) Code(s): N17.9 - ACUTE KIDNEY FAILURE, UNSPECIFIED Assessment/Plan Current Medications Generic Name Dose Route Start Last Admin Trade Name Freq PRN Reason Stop Dose Admin Acetaminophen 650 mg 05/06/17 17:00 05/06/17 17:14 Tylenol Oral Solution - PO 650 mg Q6H PRN Administration FEVER Chlorhexidine Gluconate 15 ml 05/07/17 22:00 Peridex - MM BID SHANDA Fentanyl 500 mcg/ Dextrose 100 mls @ 0 mls/hr 05/05/17 20:30 05/07/17 16:00 IVPB 13 mls/hr TITR SHANDA Administration Titrate Midazolam HCl 100 mg/ Sodium 100 mls @ 1 mls/hr 05/05/17 21:30 05/06/17 21:37 Chloride IVPB 2 mg/hr TITR SHANDA 2 mls/hr Protocol Administration 1 MG/HR Dextrose/Sodium Chloride 1,000 mls @ 75 mls/hr 05/06/17 12:00 05/07/17 12:00 D5-1/2ns - IV Not Given ASDIR SHANDA Vancomycin HCl 1,000 mg/ 250 mls @ 250 mls/hr 05/06/17 22:00 05/06/17 21:39 Dextrose IVPB 250 mls/hr Q48H SHANDA Administration Protocol Meropenem 500 mg in 10 mls @ 120 mls/hr 05/06/17 14:45 05/07/17 09:30 Merrem (Restricted To Id) - IVPUSH 120 mls/hr BID SHANDA Administration Norepinephrine Bitartrate 8, 500 mls @ 6.88 mls/hr 05/07/17 11:45 05/07/17 14 :13 000 mcg/ Dextrose IV 0.03 mcg/kg/min ASDIR SHANDA 6.88 mls/hr Protocol Administration 0.03 MCG/KG/MIN Insulin Aspart 1 vial 05/06/17 16:30 05/07/17 17:20 Novolog Vial Sliding Scale - SQ 6 units ACHS SHANDA Administration Protocol Mupirocin 1 applic 05/06/17 13:00 05/07/17 09:29 Bactroban Ointment (For Decolonization) - NS 05/11/17 12:59 1 applic BID SHANDA Administration Oseltamivir Phosphate 30 mg 05/06/17 13:30 05/07/17 10:29 Tamiflu - PO 05/11/17 13:29 30 mg DAILY SHANDA Administration Pantoprazole Sodium 40 mg 05/07/17 22:00 Protonix Iv IVPUSH BID SHANDA Impression 1. REBEKA 2. hip fracture 3. htn 4. dementia 5. anemia 6. hypomagnesemia 7. iron deficiency 8. hyperkalemia 9. respiratory failure requiring intubation 10. sepsis Plan - renal function is improving - repeat labs in am - cont current meds - vent support - likely REBEKA from sepsis and prerenal disease causing ATN - hold cesar Dr Rubi
[2017-05-07] MEDS ORDERED: NOREPINEPHRINE BITARTRATE 4 MG/4 ML ML IV ONE (20:55)
[2017-05-07] MEDS: MIDAZOLAM 100 MG in SODIUM CHLORIDE 100 ML IVPB SCH (21:23)
[2017-05-07] MEDS: PANTOPRAZOLE SODIUM 40 MG VIAL IVPUSH SCH (21:24)
[2017-05-07] MEDS: CHLORHEXIDINE GLUCONATE 0.12% 15ML CUP MM SCH (21:24)
[2017-05-08] MEDS: INSULIN SLIDING SCALE (NOVOLOG) 1 VIAL SQ SCH ×4 (06:05→21:48)
[2017-05-08 06:36] LABS: ARTERIAL BLD GAS O2 SATURATION 94.4 % (90-98.9); ARTERIAL BLOOD GAS BASE EXCESS -5.8 meq/l (-2-2); ARTERIAL BLOOD GAS PCO2 48.2 mmHg (35-45); ARTERIAL BLOOD GAS pH 7.26 (7.35-7.45)
[2017-05-08 06:37] LABS: ALLENS TEST POSITIVE
[2017-05-08 07:23] LABS: INR 1.54 (0.82-1.09); PROTHROMBIN TIME (PATIENT) 17.4 SEC (9.98-11.88)
[2017-05-08 07:25] LABS: ACTIVATED PTT 34.9 SECONDS (26.9-34.4)
[2017-05-08 07:41] LABS: HEMATOCRIT 29.5 % (35.4-49); HEMOGLOBIN 9.5 GM/dL (11.7-16.9); MCH 29.9 pg (25.7-33.7); MEAN CELL VOLUME 93.3 fl (80-96); MEAN PLT VOLUME 8.2 fl (7.5-11.1); PLATELET COUNT 232 K/MM3 (134-434); RBC 3.17 M/mm3 (4.00-5.60); RDW 17.5 % (11.9-15.9); WHITE BLOOD COUNT 28.7 K/mm3 (4.0-10.0)
[2017-05-08 07:48] LABS: ALBUMIN 1.5 g/dl (3.4-5.0); ALK PHOS 125 U/L (45-117); ANION GAP 10 (8-16); BLOOD UREA NITROGEN 54 mg/dL (7-18); CALCIUM 7.1 mg/dL (8.5-10.1); CHLORIDE 104 mmol/L (98-107); CO2 22 mmol/L (21-32); CREATININE 1.7 mg/dL (0.7-1.3); GLUCOSE,RANDOM 92 mg/dL (74-106); MAGNESIUM 2.1 mg/dL (1.8-2.4); PHOSPHOROUS 3.6 mg/dL (2.5-4.9); POTASSIUM 4.6 mmol/L (3.5-5.1); SGOT/AST 31 U/L (15-37); SGPT/ALT 17 U/L (12-78); SODIUM 136 mmol/L (136-145); TOT PROT 4.8 g/dl (6.4-8.2)
--- NOTE | 2017-05-08 10:15 | PN ---
Progress Note, Physician Chief Complaint: seen in icu intubated and sedated - Current Medication List Current Medications: Active Medications Acetaminophen (Tylenol Oral Solution -) 650 mg PO Q6H PRN PRN Reason: FEVER Last Admin: 05/06/17 17:14 Dose: 650 mg Chlorhexidine Gluconate (Peridex -) 15 ml MM BID SHANDA Last Admin: 05/07/17 21:24 Dose: 15 ml Fentanyl 500 mcg/ Dextrose 100 mls @ 0 mls/hr IVPB TITR SHANDA PRN Reason: Titrate Last Admin: 05/07/17 21:23 Dose: Not Given Midazolam HCl 100 mg/ Sodium (Chloride) 100 mls @ 1 mls/hr IVPB TITR SHANDA; 1 MG/ HR PRN Reason: Protocol Last Admin: 05/07/17 21:23 Dose: Not Given Dextrose/Sodium Chloride (D5-1/2ns -) 1,000 mls @ 75 mls/hr IV ASDIR SHANDA Last Admin: 05/08/17 00:00 Dose: 75 mls/hr Vancomycin HCl 1,000 mg/ (Dextrose) 250 mls @ 250 mls/hr IVPB Q48H SHANDA PRN Reason: Protocol Last Admin: 05/06/17 21:39 Dose: 250 mls/hr Meropenem (Merrem (Restricted To Id) -) 500 mg in 10 mls @ 120 mls/hr IVPUSH BID SHANDA Last Admin: 05/07/17 21:24 Dose: 120 mls/hr Norepinephrine Bitartrate 8, (000 mcg/ Dextrose) 500 mls @ 6.88 mls/hr IV ASDIR SHANDA; 0.03 MCG/KG/MIN PRN Reason: Protocol Last Titration: 05/07/17 22:05 Dose: 0.32 mcg/kg/min, 75 mls/hr Insulin Aspart (Novolog Vial Sliding Scale -) 1 vial SQ ACHS SHANDA PRN Reason: Protocol Last Admin: 05/08/17 06:05 Dose: Not Given Mupirocin (Bactroban Ointment (For Decolonization) -) 1 applic NS BID [facility]PL[facility] BY [facility] Stop: 05/11/17 12:59 Last Admin: 05/07/17 21:23 Dose: 1 applic Oseltamivir Phosphate (Tamiflu -) 30 mg PO DAILY [facility] Stop: 05/11/17 13:29 Last Admin: 05/07/17 10:29 Dose: 30 mg Pantoprazole Sodium (Protonix Iv) 40 mg IVPUSH BID SHANDA Last Admin: 05/07/17 21:24 Dose: 40 mg - Objective Vital Signs: Vital Signs Temperature 98.7 F 05/08/17 06:00 Pulse Rate 118 H 05/08/17 08:48 Respiratory Rate 14 05/08/17 08:48 Blood Pressure 102/52 05/08/17 08:00 O2 Sat by Pulse Oximetry (%) 94 L 05/08/17 08:48 Constitutional: Yes: Calm Cardiovascular: Yes: Regular Rate and Rhythm, S1, S2 Respiratory: Yes: Mechanically Ventilated Gastrointestinal: Yes: Normal Bowel Sounds, Soft Genitourinary: Yes: [place] Present Labs: CBC, BMP 05/08/17 05:25 05/08/17 06:00 INR, PTT INR 1.54 (0.82-1.09) H 05/08/17 05:25 Problem List - Problems (1) Sepsis Assessment/Plan: septic shock on pressors respiratory failure intubated and sedated lactic acid trending down hemodynamic support with Norepinephrine tamiflu,for influenza A meropenem leukocytosis - ID On board Microbiology 05/06/17 02:18 Urine - Urine - Catheterized Urine Culture - Final NO GROWTH OBTAINED 05/05/17 22:00 Nasopharyngeal Swab Influenza Types A,B Antigen (MAGDA) - Final 05/05/17 22:00 Nasopharyngeal Swab - Final 05/05/17 22:20 Blood - Peripheral Venous Blood Culture - Preliminary NO GROWTH OBTAINED AFTER 48 HOURS, INCUBATION TO CONTINUE FOR 3 DAYS. 05/05/17 22:20 Blood - Peripheral Venous Blood Culture - Preliminary NO GROWTH OBTAINED AFTER 48 HOURS, INCUBATION TO CONTINUE FOR 3 DAYS. Code(s): A41.9 - SEPSIS, UNSPECIFIED ORGANISM (2) REBEKA (acute kidney injury) Assessment/Plan: on presors will monitor creatinine- trending down now 1.7 from 2.0 hold ACEI renal sono noted Code(s): N17.9 - ACUTE KIDNEY FAILURE, UNSPECIFIED (3) Anemia Assessment/Plan: iron panel gi evaluation noted ppi iv s/p 3 units of prbc maintain H/h > 8 guaicic negative Code(s): D64.9 - ANEMIA, UNSPECIFIED Qualifiers: Other causes of anemia: chronic disease, other (4) Respiratory failure Assessment/Plan: intubated and sedated Code(s): J96.90 - RESPIRATORY FAILURE, UNSP, UNSP W HYPOXIA OR HYPERCAPNIA Qualifiers: Chronicity: acute Respiratory failure complication: hypoxia Qualified Code(s): J96.01 - Acute respiratory failure with hypoxia
[2017-05-08] MEDS: CHLORHEXIDINE GLUCONATE 0.12% 15ML CUP MM SCH ×2 (10:17→21:25)
[2017-05-08] MEDS: PANTOPRAZOLE SODIUM 40 MG VIAL IVPUSH SCH ×2 (10:18→21:25)
[2017-05-08] MEDS: MUPIROCIN 2% TOPICAL OINTMENT FOR DECOLONIZATION NS SCH ×2 (10:18→21:28)
[2017-05-08] MEDS: OSELTAMIVIR PHOSPHATE 30 MG CAPSULE PO SCH (10:19)
[2017-05-08] MEDS: MEROPENEM 500 MG PUSH 500 MG/10 ML DISP.SYRIN IVPUSH SCH ×2 (10:19→21:25)
[2017-05-08] MEDS ORDERED: fentaNYL CITRATE 250 MCG/5 ML VIAL ONE ×2 (10:55→20:28)
[2017-05-08] MEDS: FENTANYL INJECTION 500 MCG in DEXTROSE 5%-WATER - 90 ML IVPB SCH (11:02)
[2017-05-08] MEDS: DEXTROSE 5%-0.45% SALINE 1,000 ML IV SCH ×2 (11:12)
[2017-05-08 11:36] LABS: ANISOCYTOSIS 1+; PLATELET ESTIMATE NORMAL; TOXIC GRANULATION 1+
--- NOTE | 2017-05-08 12:05 | PN ---
Teaching Attending Note Name of Resident: Gabriel Goff ATTENDING PHYSICIAN STATEMENT I saw and evaluated the patient. I reviewed the resident's note and discussed the case with the resident. I agree with the resident's findings and plan as documented. SUBJECTIVE: Patient seen and examined in the ICU. Remains intubated, sedated on levophed drip. AC mode vent. 60% FiO2 and PEEP 8. Intake & Output 05/05/17 05/06/17 05/07/17 05/08/17 23:59 23:59 23:59 23:59 Intake Total 4805 4964 1980 Output Total 1025 1575 500 Balance 3780 3389 1480 Weight 140 lb 122 lb 3.2 oz 135 lb 140 lb Last Vital Signs Temp Pulse Resp BP Pulse Ox 99.2 F 111 H 16 111/88 94 L 05/08/17 10:00 05/08/17 10:00 05/08/17 11:23 05/08/17 10:00 05/08/17 08:48 Active Medications Acetaminophen (Tylenol Oral Solution -) 650 mg PO Q6H PRN PRN Reason: FEVER Last Admin: 05/06/17 17:14 Dose: 650 mg Chlorhexidine Gluconate (Peridex -) 15 ml MM BID SHANDA Last Admin: 05/08/17 10:17 Dose: 15 ml Fentanyl 500 mcg/ Dextrose 100 mls @ 0 mls/hr IVPB TITR SHANDA PRN Reason: Titrate Last Admin: 05/08/17 11:02 Dose: 13 mls/hr Dextrose/Sodium Chloride (D5-1/2ns -) 1,000 mls @ 75 mls/hr IV ASDIR SHANDA Last Admin: 05/08/17 11:12 Dose: 75 mls/hr Vancomycin HCl 1,000 mg/ (Dextrose) 250 mls @ 250 mls/hr IVPB Q48H SHANDA PRN Reason: Protocol Last Admin: 05/06/17 21:39 Dose: 250 mls/hr Meropenem (Merrem (Restricted To Id) -) 500 mg in 10 mls @ 120 mls/hr IVPUSH BID SHANDA Last Admin: 05/08/17 10:19 Dose: 120 mls/hr Norepinephrine Bitartrate 8, (000 mcg/ Dextrose) 500 mls @ 6.88 mls/hr IV ASDIR SHANDA; 0.03 MCG/KG/MIN PRN Reason: Protocol Last Titration: 05/07/17 22:05 Dose: 0.32 mcg/kg/min, 75 mls/hr Insulin Aspart (Novolog Vial Sliding Scale -) 1 vial SQ ACHS SHANDA PRN Reason: Protocol Last Admin: 05/08/17 06:05 Dose: Not Given Mupirocin (Bactroban Ointment (For Decolonization) -) 1 applic NS BID [facility] Stop: 05/11/17 12:59 Last Admin: 05/08/17 10:18 Dose: 1 applic Oseltamivir Phosphate (Tamiflu -) 30 mg PO DAILY [facility] Stop: 05/11/17 13:29 Last Admin: 05/08/17 10:19 Dose: 30 mg Pantoprazole Sodium (Protonix Iv) 40 mg IVPUSH BID [facility] Last Admin: 05/08/17 10:18 Dose: 40 mg Gen: intubated, sedated Heart: tachycardic, regular Lung: scattered rhonchi Abd: soft, nontender Ext: sacral edema, R hip incision clean, healed without erythema, fluctuance Laboratory Results - last 24 hr 05/07/17 05/07/17 05/07/17 06:08 06:35 11:38 WBC RBC Hgb Hct MCV MCH MCHC RDW Plt Count MPV Neutrophils % Neutrophils % (Manual) 79.8 Lymphocytes % Lymphocytes % (Manual) 9.1 D Monocytes % (Manual) 9 Myelocytes % (Man) 1 Nucleated RBC % 3 H Platelet Estimate Adequate Platelet Comment Few large plts Anisocytosis 1+ Macrocytosis 1+ PT with INR INR PTT (Actin FS) Puncture Site ABG pH ABG pCO2 at Pt Temp ABG pO2 at Pt Temp ABG HCO3 ABG O2 Sat (Measured) ABG O2 Content ABG Base Excess Jabari Test O2 Delivery Device Oxygen Flow Rate Vent Mode Vent Rate PEEP Pressure Support Vent Sodium Potassium Chloride Carbon Dioxide Anion Gap BUN Creatinine Creat Clearance w eGFR POC Glucometer 201.99665 274.69150 Random Glucose Calcium Phosphorus Magnesium Total Bilirubin AST ALT Alkaline Phosphatase Total Protein Albumin 05/07/17 05/07/17 05/08/17 17:19 21:37 05:25 WBC 28.7 H RBC 3.17 L Hgb 9.5 L Hct 29.5 L MCV 93.3 MCH 29.9 MCHC 32.0 RDW 17.5 H Plt Count 232 MPV 8.2 Neutrophils % No Result Required. Neutrophils % (Manual) Lymphocytes % No Result Required. Lymphocytes % (Manual) Monocytes % (Manual) Myelocytes % (Man) Nucleated RBC % Platelet Estimate Platelet Comment Anisocytosis Macrocytosis PT with INR INR PTT (Actin FS) Puncture Site ABG pH ABG pCO2 at Pt Temp ABG pO2 at Pt Temp ABG HCO3 ABG O2 Sat (Measured) ABG O2 Content ABG Base Excess Jabari Test O2 Delivery Device Oxygen Flow Rate Vent Mode Vent Rate PEEP Pressure Support Vent Sodium Potassium Chloride Carbon Dioxide Anion Gap BUN Creatinine Creat Clearance w eGFR POC Glucometer 335.42994 347.76481 Random Glucose Calcium Phosphorus Magnesium Total Bilirubin AST ALT Alkaline Phosphatase Total Protein Albumin 05/08/17 05/08/17 05/08/17 05:25 05:40 06:00 WBC RBC Hgb Hct MCV MCH MCHC RDW Plt Count MPV Neutrophils % Neutrophils % (Manual) Lymphocytes % Lymphocytes % (Manual) Monocytes % (Manual) Myelocytes % (Man) Nucleated RBC % Platelet Estimate Platelet Comment Anisocytosis Macrocytosis PT with INR 17.40 H INR 1.54 H PTT (Actin FS) 34.9 H Puncture Site ABG pH ABG pCO2 at Pt Temp ABG pO2 at Pt Temp ABG HCO3 ABG O2 Sat (Measured) ABG O2 Content ABG Base Excess Jabari Test O2 Delivery Device Oxygen Flow Rate Vent Mode Vent Rate PEEP Pressure Support Vent Sodium 136 Potassium 4.6 Chloride 104 Carbon Dioxide 22 Anion Gap 10 BUN 54 H D Creatinine 1.7 H Creat Clearance w eGFR 38.32 POC Glucometer 147.78041 Random Glucose 92 D Calcium 7.1 L Phosphorus 3.6 Magnesium 2.1 Total Bilirubin 1.0 D AST 31 D ALT 17 D Alkaline Phosphatase 125 H Total Protein 4.8 L Albumin 1.5 L 05/08/17 06:20 WBC RBC Hgb Hct MCV MCH MCHC RDW Plt Count MPV Neutrophils % Neutrophils % (Manual) Lymphocytes % Lymphocytes % (Manual) Monocytes % (Manual) Myelocytes % (Man) Nucleated RBC % Platelet Estimate Platelet Comment Anisocytosis Macrocytosis PT with INR INR PTT (Actin FS) Puncture Site Right radial ABG pH 7.26 L ABG pCO2 at Pt Temp 48.2 H ABG pO2 at Pt Temp 71.0 D ABG HCO3 20.6 L ABG O2 Sat (Measured) 94.4 ABG O2 Content 12.5 L ABG Base Excess -5.8 L Jabari Test Positive O2 Delivery Device Vent Oxygen Flow Rate 40% Vent Mode A/c Vent Rate 14 PEEP 5.0 Pressure Support Vent 450 Sodium Potassium Chloride Carbon Dioxide Anion Gap BUN Creatinine Creat Clearance w eGFR POC Glucometer Random Glucose Calcium Phosphorus Magnesium Total Bilirubin AST ALT Alkaline Phosphatase Total Protein Albumin ASSESSMENT AND PLAN: Acute Hypoxic Respiratory Failure Influenza A Pneumonia Septic Shock Acute Kidney Injury Lactic Acidosis Anemia s/p PRBC transfusions Subdural Hematoma HTN Dementia Recent R Hip Fracture s/p surgery - antibiotics, tamiflu per ID - IVF to keep CVP 8-12 - titrate pressors to maintain MAP >65 - monitor urine output, creatinine - hold anticoagulation - PPI - monitor H/H - hold sedation in AM to assess mental status - spontaneous breathing trials as tolerated when mental status - enteral feeds - DVT/GI prophylaxis - continue ICU monitoring Dr Dorado Critical care time spent in reviewing chart, evaluating patient and formulating plan 38 min
[2017-05-08] MEDS ORDERED: NOREPINEPHRINE BITARTRATE 4 MG/4 ML ML IV ONE ×2 (12:12→20:29)
--- NOTE | 2017-05-08 12:14 | PN ---
Progress Note, Physician Chief Complaint: Events noted Remains intubated on mechanical ventilator Atrial fibrillation with RVR Sedated History of Present Illness: Patient was seen and examined in ICU. Sedated on vent. Chart was reviewed Currently on Levophed - Current Medication List Current Medications: Active Medications Acetaminophen (Tylenol Oral Solution -) 650 mg PO Q6H PRN PRN Reason: FEVER Last Admin: 05/06/17 17:14 Dose: 650 mg Chlorhexidine Gluconate (Peridex -) 15 ml MM BID SHANDA Last Admin: 05/08/17 10:17 Dose: 15 ml Fentanyl 500 mcg/ Dextrose 100 mls @ 0 mls/hr IVPB TITR SHANDA PRN Reason: Titrate Last Admin: 05/08/17 11:02 Dose: 13 mls/hr Dextrose/Sodium Chloride (D5-1/2ns -) 1,000 mls @ 75 mls/hr IV ASDIR SHANDA Last Admin: 05/08/17 11:12 Dose: 75 mls/hr Vancomycin HCl 1,000 mg/ (Dextrose) 250 mls @ 250 mls/hr IVPB Q48H SHANDA PRN Reason: Protocol Last Admin: 05/06/17 21:39 Dose: 250 mls/hr Meropenem (Merrem (Restricted To Id) -) 500 mg in 10 mls @ 120 mls/hr IVPUSH BID SHANDA Last Admin: 05/08/17 10:19 Dose: 120 mls/hr Norepinephrine Bitartrate 8, (000 mcg/ Dextrose) 500 mls @ 6.88 mls/hr IV ASDIR SHANDA; 0.03 MCG/KG/MIN PRN Reason: Protocol Last Titration: 05/07/17 22:05 Dose: 0.32 mcg/kg/min, 75 mls/hr Insulin Aspart (Novolog Vial Sliding Scale -) 1 vial SQ ACHS SHANDA PRN Reason: Protocol Last Admin: 05/08/17 06:05 Dose: Not Given Mupirocin (Bactroban Ointment (For Decolonization) -) 1 applic NS BID [facility] Stop: 05/11/17 12:59 Last Admin: 05/08/17 10:18 Dose: 1 applic Oseltamivir Phosphate (Tamiflu -) 30 mg PO DAILY [facility] Stop: 05/11/17 13:29 Last Admin: 05/08/17 10:19 Dose: 30 mg Pantoprazole Sodium (Protonix Iv) 40 mg IVPUSH BID SHANDA Last Admin: 05/08/17 10:18 Dose: 40 mg - Objective Vital Signs: Vital Signs Temperature 99.2 F 05/08/17 10:00 Pulse Rate 111 H 05/08/17 10:00 Respiratory Rate 16 05/08/17 11:23 Blood Pressure 111/88 05/08/17 10:00 O2 Sat by Pulse Oximetry (%) 94 L 05/08/17 08:48 Cardiovascular: Yes: Tachycardia, Pulse Irregular, S1, S2 Respiratory: Yes: Diminished, Mechanically Ventilated Gastrointestinal: Yes: Normal Bowel Sounds, Soft. No: Tenderness Edema: No Labs: CBC, BMP 05/08/17 05:25 05/08/17 06:00 INR, PTT INR 1.54 (0.82-1.09) H 05/08/17 05:25 Problem List - Problems (1) [id number]-[id number] kidney injury Code(s): N17.9 - ACUTE KIDNEY FAILURE, UNSPECIFIED; N18.9 - CHRONIC KIDNEY DISEASE, UNSPECIFIED Qualifiers: Chronic kidney disease stage: stage 3 (moderate) (2) Influenza Code(s): J11.1 - FLU DUE TO UNIDENTIFIED INFLUENZA VIRUS W OTH RESP MANIFEST (3) Persistent atrial fibrillation with rapid ventricular response Code(s): I48.1 - PERSISTENT ATRIAL FIBRILLATION (4) Pneumonia Code(s): J18.9 - PNEUMONIA, UNSPECIFIED ORGANISM Qualifiers: Pneumonia type: due to unspecified organism Laterality: left Lung location: lower lobe of lung Qualified Code(s): J18.1 - Lobar pneumonia, unspecified organism (5) Respiratory failure Code(s): J96.90 - RESPIRATORY FAILURE, UNSP, UNSP W HYPOXIA OR HYPERCAPNIA Qualifiers: Chronicity: acute Respiratory failure complication: hypoxia Qualified Code(s): J96.01 - Acute respiratory failure with hypoxia (6) Sepsis Code(s): A41.9 - SEPSIS, UNSPECIFIED ORGANISM Qualifiers: Sepsis type: sepsis due to unspecified organism Qualified Code(s): A41.9 - Sepsis, unspecified organism (7) Subdural hematoma Code(s): I62.00 - NONTRAUMATIC SUBDURAL HEMORRHAGE, UNSPECIFIED (8) Dementia Code(s): F03.90 - UNSPECIFIED DEMENTIA WITHOUT BEHAVIORAL DISTURBANCE Qualifiers: Dementia type: Alzheimer's disease Dementia behavioral disturbance: with behavioral disturbance (9) Metabolic encephalopathy Code(s): G93.41 - METABOLIC ENCEPHALOPATHY Assessment/Plan 1. Acute hypoxic respiratory failure, Influenza A, pneumonia and septic shock with lactic acidosis 2. Persistent atrial fibrillation with RVR [id number] not on anticoagulation due to history of SDH 2. CAD with evidence of demand ischemic injury, angina pectoris 3. Diastolic LV dysfunction with class 0-I NYHA classification LV failure 4. Profound anemia, source to be determined, post transfusion 5. Acute on chronic kidney disease improving 6. Hyperglycemia/DM 7. History of HTN, currently hypotensive/septic shock 8. Hyperkalemia resolved 9. Chronic SDH PLAN: 1. Antibiotics and Tamiflu 2. Pressors (Levophed) to maintain MAP > 65 and attempt to wean off as tolerated 3. Monitor Hgb and transfuse as needed maintaining Hgb equal or > 8.0 4. Vent support per critical care team 5. Further rate control measures may be considered if BP tolerates )i.e. IV Cardizem PRN) Further plans are to follow Sidney Graf MD
--- NOTE | 2017-05-08 12:17 | PN ---
Physical Exam: SUBJECTIVE: Patient seen and examined Patient intubated/sedated/on pressors. Vent Settings- Rate 14, TV 450, FIO2 40%, PEEP 5 OBJECTIVE: Vital Signs Period Temp Pulse Resp BP Sys/[place] Pulse Ox Last 24 Hr 98.5 F-100.0 F 99-125 14-16 82-122/52-88 94-100 Gen: elderly, frail man, sedated, intubated HEENT:+ cough/gag to deep suction, PULM: clear to auscultation bilaterally , no wheezes, CV; tachycardic, s1, s2, regular rhythm, no m/r/g appreciated ABD: soft, NT, ND, normal bowel sounds EXT: no edema, 2+ pulses Neuro: Sedated, Intubated Laboratory Results - last 24 hr 05/07/17 05/07/17 05/07/17 06:08 06:35 11:38 WBC RBC Hgb Hct MCV MCH MCHC RDW Plt Count MPV Neutrophils % Neutrophils % (Manual) 79.8 Lymphocytes % Lymphocytes % (Manual) 9.1 D Monocytes % (Manual) 9 Myelocytes % (Man) 1 Nucleated RBC % 3 H Platelet Estimate Adequate Platelet Comment Few large plts Anisocytosis 1+ Macrocytosis 1+ PT with INR INR PTT (Actin FS) Puncture Site ABG pH ABG pCO2 at Pt Temp ABG pO2 at Pt Temp ABG HCO3 ABG O2 Sat (Measured) ABG O2 Content ABG Base Excess Jabari Test O2 Delivery Device Oxygen Flow Rate Vent Mode Vent Rate PEEP Pressure Support Vent Sodium Potassium Chloride Carbon Dioxide Anion Gap BUN Creatinine Creat Clearance w eGFR POC Glucometer 201.34101 274.28046 Random Glucose Calcium Phosphorus Magnesium Total Bilirubin AST ALT Alkaline Phosphatase Total Protein Albumin 05/07/17 05/07/17 05/08/17 17:19 21:37 05:25 WBC 28.7 H RBC 3.17 L Hgb 9.5 L Hct 29.5 L MCV 93.3 MCH 29.9 MCHC 32.0 RDW 17.5 H Plt Count 232 MPV 8.2 Neutrophils % No Result Required. Neutrophils % (Manual) Lymphocytes % No Result Required. Lymphocytes % (Manual) Monocytes % (Manual) Myelocytes % (Man) Nucleated RBC % Platelet Estimate Platelet Comment Anisocytosis Macrocytosis PT with INR INR PTT (Actin FS) Puncture Site ABG pH ABG pCO2 at Pt Temp ABG pO2 at Pt Temp ABG HCO3 ABG O2 Sat (Measured) ABG O2 Content ABG Base Excess Jabari Test O2 Delivery Device Oxygen Flow Rate Vent Mode Vent Rate PEEP Pressure Support Vent Sodium Potassium Chloride Carbon Dioxide Anion Gap BUN Creatinine Creat Clearance w eGFR POC Glucometer 335.10022 347.51625 Random Glucose Calcium Phosphorus Magnesium Total Bilirubin AST ALT Alkaline Phosphatase Total Protein Albumin 05/08/17 05/08/17 05/08/17 05:25 05:40 06:00 WBC RBC Hgb Hct MCV MCH MCHC RDW Plt Count MPV Neutrophils % Neutrophils % (Manual) Lymphocytes % Lymphocytes % (Manual) Monocytes % (Manual) Myelocytes % (Man) Nucleated RBC % Platelet Estimate Platelet Comment Anisocytosis Macrocytosis PT with INR 17.40 H INR 1.54 H PTT (Actin FS) 34.9 H Puncture Site ABG pH ABG pCO2 at Pt Temp ABG pO2 at Pt Temp ABG HCO3 ABG O2 Sat (Measured) ABG O2 Content ABG Base Excess Jabari Test O2 Delivery Device Oxygen Flow Rate Vent Mode Vent Rate PEEP Pressure Support Vent Sodium 136 Potassium 4.6 Chloride 104 Carbon Dioxide 22 Anion Gap 10 BUN 54 H D Creatinine 1.7 H Creat Clearance w eGFR 38.32 POC Glucometer 147.29698 Random Glucose 92 D Calcium 7.1 L Phosphorus 3.6 Magnesium 2.1 Total Bilirubin 1.0 D AST 31 D ALT 17 D Alkaline Phosphatase 125 H Total Protein 4.8 L Albumin 1.5 L 05/08/17 06:20 WBC RBC Hgb Hct MCV MCH MCHC RDW Plt Count MPV Neutrophils % Neutrophils % (Manual) Lymphocytes % Lymphocytes % (Manual) Monocytes % (Manual) Myelocytes % (Man) Nucleated RBC % Platelet Estimate Platelet Comment Anisocytosis Macrocytosis PT with INR INR PTT (Actin FS) Puncture Site Right radial ABG pH 7.26 L ABG pCO2 at Pt Temp 48.2 H ABG pO2 at Pt Temp 71.0 D ABG HCO3 20.6 L ABG O2 Sat (Measured) 94.4 ABG O2 Content 12.5 L ABG Base Excess -5.8 L Jabari Test Positive O2 Delivery Device Vent Oxygen Flow Rate 40% Vent Mode A/c Vent Rate 14 PEEP 5.0 Pressure Support Vent 450 Sodium Potassium Chloride Carbon Dioxide Anion Gap BUN Creatinine Creat Clearance w eGFR POC Glucometer Random Glucose Calcium Phosphorus Magnesium Total Bilirubin AST ALT Alkaline Phosphatase Total Protein Albumin Active Medications Generic Name Dose Route Start Last Admin Trade Name Marylou PRN Reason Stop Dose Admin Acetaminophen 650 mg 05/06/17 17:00 05/06/17 17:14 Tylenol Oral Solution - PO 650 mg Q6H PRN Administration FEVER Chlorhexidine Gluconate 15 ml 05/07/17 22:00 05/08/17 10:17 Peridex - MM 15 ml BID SHANDA Administration Fentanyl 500 mcg/ Dextrose 100 mls @ 0 mls/hr 05/05/17 20:30 05/08/17 11:02 IVPB 13 mls/hr TITR SHANDA Administration Titrate Dextrose/Sodium Chloride 1,000 mls @ 75 mls/hr 05/06/17 12:00 05/08/17 11:12 D5-1/2ns - IV 75 mls/hr ASDIR SHANDA Administration Vancomycin HCl 1,000 mg/ 250 mls @ 250 mls/hr 05/06/17 22:00 05/06/17 21:39 Dextrose IVPB 250 mls/hr Q48H SHANDA Administration Protocol Meropenem 500 mg in 10 mls @ 120 mls/hr 05/06/17 14:45 05/08/17 10:19 Merrem (Restricted To Id) - IVPUSH 120 mls/hr BID SHANDA Administration Norepinephrine Bitartrate 8, 500 mls @ 6.88 mls/hr 05/07/17 11:45 05/07/17 22 :05 000 mcg/ Dextrose IV 0.32 mcg/kg/min ASDIR SHANDA 75 mls/hr Protocol Titration 0.03 MCG/KG/MIN Insulin Aspart 1 vial 05/06/17 16:30 05/08/17 06:05 Novolog Vial Sliding Scale - SQ Not Given ACHS SHANDA Protocol Mupirocin 1 applic 05/06/17 13:00 05/08/17 10:18 Bactroban Ointment (For Decolonization) - NS 05/11/17 12:59 1 applic BID SHANDA Administration Oseltamivir Phosphate 30 mg 05/06/17 13:30 05/08/17 10:19 Tamiflu - PO 05/11/17 13:29 30 mg DAILY SHANDA Administration Pantoprazole Sodium 40 mg 05/07/17 22:00 05/08/17 10:18 Protonix Iv IVPUSH 40 mg BID SHANDA Administration ASSESSMENT/PLAN: #ID Septic shock -ID on board, Dr. Garcia -Follow abx recommendations from ID -Continue Vanc/Meropenem/Tamiflu -Continue Levophed, Fentanyl, Keep MAP >65 -Stop Versed to monitor patient off sedation. #CV Atrial fibrillation with RVR -Hold AC in the setting of Anemia & subdural bleed -Cardiology on board, Dr. Mays -Keep CVP 8-12 #Pulm Acute respiratory failure -Intubated/sedated -Continue Levophed, Fentanyl -Stop versed, Start Propofol if needed -Continue ventilatory support #Neuro Subdural bleeds -Evaluated by neurosurgery, No recommendation for intervention at this time. #Heme Anemia of unknown etiology, possible GI bleed -Hgb stable, responded well -Monitor H/H -Transfuse as needed #Renal REBEKA, likely prerenal vs ATN from sepsis -Continue D5 1/2 NS @ 75 cc/hr -Monitor Urine lytes, BUN, Cr. #Endo Hyperglycemia -BGM ACHS -ISS ACHS #FEN/GI -D5 1/2 NS @ 75 cc/hr -Monitor BMPs -NPO for PEG tube #PPx -Protnoix 40 mg IV BID -SCDs, no ac in the setting of anemia and subdural bleeds Dispo: Continue ICU level of care Visit type - Emergency Visit Emergency Visit: Yes ED Registration Date: 05/05/17 Care time: The patient presented to the Emergency Department on the above date and was hospitalized for further evaluation of their emergent condition. - New Patient This patient is new to me today: No - Critical Care Critical Care patient: Yes Total Critical Care Time (in minutes): 35 Critical Care Statement: The care of this patient involved high complexity decision making to prevent further life threatening deterioration of the patient 's condition and/or to evaluate & treat vital organ system(s) failure or risk of failure.
[2017-05-08] MEDS: NOREPINEPHRINE BITARTRATE 8,000 MCG in DEXTROSE 5%-WATER - 492 ML IV SCH (12:24)
[2017-05-08 13:40] LABS: MACROCYTOSIS 1+
--- NOTE | 2017-05-08 14:15 | PN ---
Progress Note, Physician History of Present Illness: No events, melenal hematochezia, coffee-ground - Current Medication List Current Medications: Active Medications Acetaminophen (Tylenol Oral Solution -) 650 mg PO Q6H PRN PRN Reason: FEVER Last Admin: 05/06/17 17:14 Dose: 650 mg Chlorhexidine Gluconate (Peridex -) 15 ml MM BID SHANDA Last Admin: 05/08/17 10:17 Dose: 15 ml Fentanyl 500 mcg/ Dextrose 100 mls @ 0 mls/hr IVPB TITR SHANDA PRN Reason: Titrate Last Admin: 05/08/17 11:02 Dose: 13 mls/hr Dextrose/Sodium Chloride (D5-1/2ns -) 1,000 mls @ 75 mls/hr IV ASDIR SHANDA Last Admin: 05/08/17 11:12 Dose: 75 mls/hr Vancomycin HCl 1,000 mg/ (Dextrose) 250 mls @ 250 mls/hr IVPB Q48H SHANDA PRN Reason: Protocol Last Admin: 05/06/17 21:39 Dose: 250 mls/hr Meropenem (Merrem (Restricted To Id) -) 500 mg in 10 mls @ 120 mls/hr IVPUSH BID [facility] Last Admin: 05/08/17 10:19 Dose: 120 mls/hr Norepinephrine Bitartrate 8, (000 mcg/ Dextrose) 500 mls @ 6.88 mls/hr IV ASDIR SHANDA; 0.03 MCG/KG/MIN PRN Reason: Protocol Last Admin: 05/08/17 12:24 Dose: 0.32 mcg/kg/min, 75 mls/hr Insulin Aspart (Novolog Vial Sliding Scale -) 1 vial SQ ACHS SHANDA PRN Reason: Protocol Last Admin: 05/08/17 12:22 Dose: 2 units Mupirocin (Bactroban Ointment (For Decolonization) -) 1 applic NS BID [facility] Stop: 05/11/17 12:59 Last Admin: 05/08/17 10:18 Dose: 1 applic Oseltamivir Phosphate (Tamiflu -) 30 mg PO DAILY [facility] Stop: 05/11/17 13:29 Last Admin: 05/08/17 10:19 Dose: 30 mg Pantoprazole Sodium (Protonix Iv) 40 mg IVPUSH BID [facility] Last Admin: 05/08/17 10:18 Dose: 40 mg - Objective Vital Signs: Vital Signs Temperature 99.2 F 05/08/17 10:00 Pulse Rate 125 H 05/08/17 12:24 Respiratory Rate 14 05/08/17 12:00 Blood Pressure 110/60 05/08/17 12:24 O2 Sat by Pulse Oximetry (%) 94 L 05/08/17 08:48 Labs: CBC, BMP 05/08/17 05:25 05/08/17 06:00 INR, PTT INR 1.54 (0.82-1.09) H 05/08/17 05:25 Abnormal Lab Results 05/07/17 05/08/17 05/08/17 06:35 05:25 05:25 WBC 28.7 H RBC 3.17 L Hgb 9.5 L Hct 29.5 L RDW 17.5 H Lymphocytes % (Manual) 7.3 L Monocytes % (Manual) 0 L D Nucleated RBC % 3 H PT with INR 17.40 H INR 1.54 H PTT (Actin FS) 34.9 H ABG pH ABG pCO2 at Pt Temp ABG HCO3 ABG O2 Content ABG Base Excess BUN Creatinine Calcium Alkaline Phosphatase Total Protein Albumin 05/08/17 05/08/17 06:00 06:20 WBC RBC Hgb Hct RDW Lymphocytes % (Manual) Monocytes % (Manual) Nucleated RBC % PT with INR INR PTT (Actin FS) ABG pH 7.26 L ABG pCO2 at Pt Temp 48.2 H ABG HCO3 20.6 L ABG O2 Content 12.5 L ABG Base Excess -5.8 L BUN 54 H D Creatinine 1.7 H Calcium 7.1 L Alkaline Phosphatase 125 H Total Protein 4.8 L Albumin 1.5 L Problem List - Problems (1) Influenza Code(s): J11.1 - FLU DUE TO UNIDENTIFIED INFLUENZA VIRUS W OTH RESP MANIFEST (2) Respiratory failure Code(s): J96.90 - RESPIRATORY FAILURE, UNSP, UNSP W HYPOXIA OR HYPERCAPNIA Qualifiers: Chronicity: acute Respiratory failure complication: hypoxia Qualified Code(s): J96.01 - Acute respiratory failure with hypoxia (3) Sepsis Code(s): A41.9 - SEPSIS, UNSPECIFIED ORGANISM Qualifiers: Sepsis type: sepsis due to unspecified organism Qualified Code(s): A41.9 - Sepsis, unspecified organism (4) REBEKA (acute kidney injury) Code(s): N17.9 - ACUTE KIDNEY FAILURE, UNSPECIFIED (5) Anemia Code(s): D64.9 - ANEMIA, UNSPECIFIED Qualifiers: Other causes of anemia: chronic disease, other (6) B12 deficiency Code(s): E53.8 - DEFICIENCY OF OTHER SPECIFIED B GROUP VITAMINS (7) Status post hip surgery Code(s): Z98.890 - OTHER SPECIFIED POSTPROCEDURAL STATES Assessment/Plan An 86 yo, critically ill male with significant macrocytic anemia and no signs of overt GI bleeding keep Hgb above 7 g/dl PPI IV Carafate via NG (flash NG after each use) Daily CBC and ongoing monitoring for melena, or NGT evidence of bleeding Recommend conservative management unless active GI bleed suspected Will follow
--- NOTE | 2017-05-08 15:13 | PN ---
Progress Note, Physician History of Present Illness: Pt seen and examined at bedside. He remains in the ICU. He remains intubated. - Current Medication List Current Medications: Active Medications Acetaminophen (Tylenol Oral Solution -) 650 mg PO Q6H PRN PRN Reason: FEVER Last Admin: 05/06/17 17:14 Dose: 650 mg Chlorhexidine Gluconate (Peridex -) 15 ml MM BID SHANDA Last Admin: 05/08/17 10:17 Dose: 15 ml Fentanyl 500 mcg/ Dextrose 100 mls @ 0 mls/hr IVPB TITR SHANDA PRN Reason: Titrate Last Admin: 05/08/17 11:02 Dose: 13 mls/hr Dextrose/Sodium Chloride (D5-1/2ns -) 1,000 mls @ 75 mls/hr IV ASDIR SHANDA Last Admin: 05/08/17 11:12 Dose: 75 mls/hr Vancomycin HCl 1,000 mg/ (Dextrose) 250 mls @ 250 mls/hr IVPB Q48H SHANDA PRN Reason: Protocol Last Admin: 05/06/17 21:39 Dose: 250 mls/hr Meropenem (Merrem (Restricted To Id) -) 500 mg in 10 mls @ 120 mls/hr IVPUSH BID [facility] Last Admin: 05/08/17 10:19 Dose: 120 mls/hr Norepinephrine Bitartrate 8, (000 mcg/ Dextrose) 500 mls @ 6.88 mls/hr IV ASDIR SHANDA; 0.03 MCG/KG/MIN PRN Reason: Protocol Last Admin: 05/08/17 12:24 Dose: 0.32 mcg/kg/min, 75 mls/hr Insulin Aspart (Novolog Vial Sliding Scale -) 1 vial SQ ACHS SHANDA PRN Reason: Protocol Last Admin: 05/08/17 12:22 Dose: 2 units Mupirocin (Bactroban Ointment (For Decolonization) -) 1 applic NS BID [facility] Stop: 05/11/17 12:59 Last Admin: 05/08/17 10:18 Dose: 1 applic Oseltamivir Phosphate (Tamiflu -) 30 mg PO DAILY [facility] Stop: 05/11/17 13:29 Last Admin: 05/08/17 10:19 Dose: 30 mg Pantoprazole Sodium (Protonix Iv) 40 mg IVPUSH BID [facility] Last Admin: 05/08/17 10:18 Dose: 40 mg - Objective Vital Signs: Vital Signs Temperature 99.2 F 05/08/17 10:00 Pulse Rate 125 H 05/08/17 12:24 Respiratory Rate 16 05/08/17 14:21 Blood Pressure 110/60 05/08/17 12:24 O2 Sat by Pulse Oximetry (%) 94 L 05/08/17 08:48 Constitutional: Yes: Calm Eyes: Yes: Conjunctiva Clear HENT: Yes: Atraumatic Neck: Yes: Supple Cardiovascular: Yes: Tachycardia, S1, S2 Respiratory: Yes: Mechanically Ventilated Gastrointestinal: Yes: Soft Genitourinary: Yes: [place] Present Musculoskeletal: Yes: Muscle Weakness Edema: No Neurological: Yes: Lethargy Labs: CBC, BMP 05/08/17 05:25 05/08/17 06:00 INR, PTT INR 1.54 (0.82-1.09) H 05/08/17 05:25 - ....Imaging Chest X-ray: Report Reviewed Problem List - Problems (1) [id number] kidney injury Code(s): N17.9 - ACUTE KIDNEY FAILURE, UNSPECIFIED; N18.9 - CHRONIC KIDNEY DISEASE, UNSPECIFIED Qualifiers: Chronic kidney disease stage: stage 3 (moderate) (2) Influenza Code(s): J11.1 - FLU DUE TO UNIDENTIFIED INFLUENZA VIRUS W OTH RESP MANIFEST (3) Respiratory failure Code(s): J96.90 - RESPIRATORY FAILURE, UNSP, UNSP W HYPOXIA OR HYPERCAPNIA Qualifiers: Chronicity: acute Respiratory failure complication: hypoxia Qualified Code(s): J96.01 - Acute respiratory failure with hypoxia (4) Sepsis Code(s): A41.9 - SEPSIS, UNSPECIFIED ORGANISM Qualifiers: Sepsis type: sepsis due to unspecified organism Qualified Code(s): A41.9 - Sepsis, unspecified organism (5) REBEKA (acute kidney injury) Code(s): N17.9 - ACUTE KIDNEY FAILURE, UNSPECIFIED Assessment/Plan Current Medications Generic Name Dose Route Start Last Admin Trade Name Freq PRN Reason Stop Dose Admin Acetaminophen 650 mg 05/06/17 17:00 05/06/17 17:14 Tylenol Oral Solution - PO 650 mg Q6H PRN Administration FEVER Chlorhexidine Gluconate 15 ml 05/07/17 22:00 01/25/18 10:17 Peridex - MM 15 ml BID SHANDA Administration Fentanyl 500 mcg/ Dextrose 100 mls @ 0 mls/hr 05/05/17 20:30 05/08/17 11:02 IVPB 13 mls/hr TITR SHANDA Administration Titrate Dextrose/Sodium Chloride 1,000 mls @ 75 mls/hr 05/06/17 12:00 05/08/17 11:12 D5-1/2ns - IV 75 mls/hr ASDIR SHANDA Administration Vancomycin HCl 1,000 mg/ 250 mls @ 250 mls/hr 05/06/17 22:00 05/06/17 21:39 Dextrose IVPB 250 mls/hr Q48H SHANDA Administration Protocol Meropenem 500 mg in 10 mls @ 120 mls/hr 05/06/17 14:45 05/08/17 10:19 Merrem (Restricted To Id) - IVPUSH 120 mls/hr BID SHANDA Administration Norepinephrine Bitartrate 8, 500 mls @ 6.88 mls/hr 05/07/17 11:45 05/08/17 12 :24 000 mcg/ Dextrose IV 0.32 mcg/kg/min ASDIR SHANDA 75 mls/hr Protocol Administration 0.03 MCG/KG/MIN Insulin Aspart 1 vial 05/06/17 16:30 05/08/17 12:22 Novolog Vial Sliding Scale - SQ 2 units ACHS SHANDA Administration Protocol Mupirocin 1 applic 05/06/17 13:00 05/08/17 10:18 Bactroban Ointment (For Decolonization) - NS 05/11/17 12:59 1 applic BID SHANDA Administration Oseltamivir Phosphate 30 mg 05/06/17 13:30 05/08/17 10:19 Tamiflu - PO 05/11/17 13:29 30 mg DAILY SHANDA Administration Pantoprazole Sodium 40 mg 05/07/17 22:00 05/08/17 10:18 Protonix Iv IVPUSH 40 mg BID SHANDA Administration Impression 1. REBEKA 2. hip fracture 3. htn 4. dementia 5. anemia 6. hypomagnesemia 7. iron deficiency 8. hyperkalemia 9. respiratory failure requiring intubation 10. sepsis Plan - renal function is improving - consider stopping fluids and starting tube feeds as cxr is congested - cont vent support - repeat labs in am - likely REBEKA from sepsis and prerenal disease causing ATN - hold cesar Dr Rubi
--- NOTE | 2017-05-08 16:33 | PN ---
Progress Note, Physician History of Present Illness: no specific changes low grade fever continues to be intubated and sedated with high wbc count - Current Medication List Current Medications: Active Medications Acetaminophen (Tylenol Oral Solution -) 650 mg PO Q6H PRN PRN Reason: FEVER Last Admin: 05/06/17 17:14 Dose: 650 mg Chlorhexidine Gluconate (Peridex -) 15 ml MM BID SHANDA Last Admin: 05/08/17 10:17 Dose: 15 ml Fentanyl 500 mcg/ Dextrose 100 mls @ 0 mls/hr IVPB TITR SHANDA PRN Reason: Titrate Last Admin: 05/08/17 11:02 Dose: 13 mls/hr Vancomycin HCl 1,000 mg/ (Dextrose) 250 mls @ 250 mls/hr IVPB Q48H SHANDA PRN Reason: Protocol Last Admin: 05/06/17 21:39 Dose: 250 mls/hr Meropenem (Merrem (Restricted To Id) -) 500 mg in 10 mls @ 120 mls/hr IVPUSH BID SHANDA Last Admin: 05/08/17 10:19 Dose: 120 mls/hr Norepinephrine Bitartrate 8, (000 mcg/ Dextrose) 500 mls @ 6.88 mls/hr IV ASDIR SHANDA; 0.03 MCG/KG/MIN PRN Reason: Protocol Last Admin: 05/08/17 12:24 Dose: 0.32 mcg/kg/min, 75 mls/hr Insulin Aspart (Novolog Vial Sliding Scale -) 1 vial SQ ACHS SHANDA PRN Reason: Protocol Last Admin: 05/08/17 12:22 Dose: 2 units Mupirocin (Bactroban Ointment (For Decolonization) -) 1 applic NS BID [facility] Stop: 05/11/17 12:59 Last Admin: 05/08/17 10:18 Dose: 1 applic Oseltamivir Phosphate (Tamiflu -) 30 mg PO DAILY SHANDA Stop: 05/11/17 13:29 Last Admin: 05/08/17 10:19 Dose: 30 mg Pantoprazole Sodium (Protonix Iv) 40 mg IVPUSH BID [facility] Last Admin: 05/08/17 10:18 Dose: 40 mg - Objective Vital Signs: Vital Signs Temperature 100.2 F H 05/08/17 14:00 Pulse Rate 118 H 05/08/17 14:00 Respiratory Rate 16 05/08/17 14:21 Blood Pressure 106/62 05/08/17 14:00 O2 Sat by Pulse Oximetry (%) 94 L 05/08/17 08:48 Constitutional: Yes: Other Cardiovascular: Yes: S1, S2 Respiratory: Yes: Intubated, Mechanically Ventilated Gastrointestinal: Yes: Normal Bowel Sounds, Soft Musculoskeletal: Yes: WNL Extremities: Yes: WNL Labs: CBC, BMP 05/08/17 05:25 05/08/17 06:00 INR, PTT INR 1.54 (0.82-1.09) H 05/08/17 05:25 Assessment/Plan Problem List - Problems (1) Sepsis Code(s): A41.9 - SEPSIS, UNSPECIFIED ORGANISM (2) REBEKA (acute kidney injury) Code(s): N17.9 - ACUTE KIDNEY FAILURE, UNSPECIFIED (3) Anemia Code(s): D64.9 - ANEMIA, UNSPECIFIED Qualifiers: Other causes of anemia: chronic disease, other (4) Respiratory failure Code(s): J96.90 - RESPIRATORY FAILURE, UNSP, UNSP W HYPOXIA OR HYPERCAPNIA wound infection influenza a afib with rapid rvr leukocytosis wbc high plan continue current abx continue as per icu patient still on pressor prognosis continues to be poor continue to monitor wbc cc time 40
[2017-05-08] MEDS: FENTANYL INJECTION 500 MCG in SODIUM CHLORIDE 90 ML IVPB SCH (21:23)
[2017-05-08] MEDS: VANCOMYCIN 1,000 MG in DEXTROSE 5%-WATER - 250 ML IVPB SCH (21:25)
[2017-05-09 06:12] LABS: HEMATOCRIT 29.6 % (35.4-49); HEMOGLOBIN 9.6 GM/dL (11.7-16.9); MCH 30.4 pg (25.7-33.7); MCHC 32.5 g/dl (32.0-35.9); MEAN CELL VOLUME 93.3 fl (80-96); MEAN PLT VOLUME 8.3 fl (7.5-11.1); PLATELET COUNT 232 K/MM3 (134-434); RBC 3.17 M/mm3 (4.00-5.60); RDW 17.5 % (11.9-15.9); WHITE BLOOD COUNT 28.3 K/mm3 (4.0-10.0)
[2017-05-09] MEDS: INSULIN SLIDING SCALE (NOVOLOG) 1 VIAL SQ SCH ×4 (06:21→22:23)
[2017-05-09 06:31] LABS: INR 1.62 (0.82-1.09); PROTHROMBIN TIME (PATIENT) 18.3 SEC (9.98-11.88)
[2017-05-09 06:34] LABS: ACTIVATED PTT 36.6 SECONDS (26.9-34.4)
[2017-05-09 06:40] LABS: ALBUMIN 1.3 g/dl (3.4-5.0); ANION GAP 9 (8-16); BLOOD UREA NITROGEN 38 mg/dL (7-18); CALCIUM 7.4 mg/dL (8.5-10.1); CHLORIDE 104 mmol/L (98-107); CO2 23 mmol/L (21-32); GLUCOSE,RANDOM 184 mg/dL (74-106); MAGNESIUM 2.2 mg/dL (1.8-2.4); POTASSIUM 4.7 mmol/L (3.5-5.1); SODIUM 136 mmol/L (136-145)
[2017-05-09 06:43] LABS: ALK PHOS 143 U/L (45-117); BILIRUBIN,TOTAL 1.3 mg/dL (0.2-1.0); CREATININE 1.4 mg/dL (0.7-1.3); PHOSPHOROUS 2.8 mg/dL (2.5-4.9); SGOT/AST 19 U/L (15-37); SGPT/ALT 13 U/L (12-78); TOT PROT 4.9 g/dl (6.4-8.2)
[2017-05-09 07:43] LABS: ARTERIAL BLD GAS O2 SATURATION 93.2 % (90-98.9); ARTERIAL BLOOD GAS PCO2 43.2 mmHg (35-45); ARTERIAL BLOOD GAS PO2 65.5 mmHg (68-100); ARTERIAL BLOOD GAS pH 7.32 (7.35-7.45)
[2017-05-09 07:44] LABS: ALLENS TEST POSITIVE; ARTERIAL BLOOD GAS BASE EXCESS -3.8 meq/l (-2-2)
[2017-05-09] MEDS ORDERED: PT OWN MED DRAWER 7, Y5N ONE ×2 (09:23→22:02)
[2017-05-09] MEDS: OSELTAMIVIR PHOSPHATE 30 MG CAPSULE PO SCH (09:33)
[2017-05-09] MEDS: MUPIROCIN 2% TOPICAL OINTMENT FOR DECOLONIZATION NS SCH ×2 (09:34→22:03)
[2017-05-09] MEDS: CHLORHEXIDINE GLUCONATE 0.12% 15ML CUP MM SCH ×2 (09:35→22:03)
[2017-05-09] MEDS: MEROPENEM 500 MG PUSH 500 MG/10 ML DISP.SYRIN IVPUSH SCH ×2 (09:35→22:03)
[2017-05-09] MEDS: PANTOPRAZOLE SODIUM 40 MG VIAL IVPUSH SCH ×2 (09:36→22:03)
--- NOTE | 2017-05-09 09:59 | PN ---
Progress Note, Physician - Current Medication List Current Medications: Active Medications Acetaminophen (Tylenol Oral Solution -) 650 mg PO Q6H PRN PRN Reason: FEVER Last Admin: 05/06/17 17:14 Dose: 650 mg Chlorhexidine Gluconate (Peridex -) 15 ml MM BID [facility] Last Admin: 05/09/17 09:35 Dose: 15 ml Vancomycin HCl 1,000 mg/ (Dextrose) 250 mls @ 250 mls/hr IVPB Q48H SHANDA PRN Reason: Protocol Last Admin: 05/08/17 21:25 Dose: 250 mls/hr Meropenem (Merrem (Restricted To Id) -) 500 mg in 10 mls @ 120 mls/hr IVPUSH BID SHANDA Last Admin: 05/09/17 09:35 Dose: 120 mls/hr Norepinephrine Bitartrate 8, (000 mcg/ Dextrose) 500 mls @ 6.88 mls/hr IV ASDIR SHANDA; 0.03 MCG/KG/MIN PRN Reason: Protocol Last Titration: 05/08/17 21:26 Dose: 0.32 mcg/kg/min, 75 mls/hr Fentanyl 500 mcg/ Sodium (Chloride) 100 mls @ 0 mls/hr IVPB TITR SHANDA; Titrate PRN Reason: Protocol Last Admin: 05/08/17 21:23 Dose: 10 mls/hr Insulin Aspart (Novolog Vial Sliding Scale -) 1 vial SQ ACHS SHANDA PRN Reason: Protocol Last Admin: 05/09/17 06:21 Dose: 4 units Mupirocin (Bactroban Ointment (For Decolonization) -) 1 applic NS BID [facility] Stop: 05/11/17 12:59 Last Admin: 05/09/17 09:34 Dose: 1 applic Oseltamivir Phosphate (Tamiflu -) 30 mg PO DAILY [facility] Stop: 05/11/17 13:29 Last Admin: 05/09/17 09:33 Dose: 30 mg Pantoprazole Sodium (Protonix Iv) 40 mg IVPUSH BID [facility] Last Admin: 05/09/17 09:36 Dose: 40 mg - Objective Vital Signs: Vital Signs Temperature 99.8 F H 05/09/17 06:00 Pulse Rate 120 H 05/09/17 08:10 Respiratory Rate 16 05/09/17 09:29 Blood Pressure 118/68 05/09/17 08:00 O2 Sat by Pulse Oximetry (%) 98 05/09/17 09:29 Cardiovascular: Yes: S1, S2 Respiratory: Yes: Mechanically Ventilated Gastrointestinal: Yes: Normal Bowel Sounds, Soft Neurological: Yes: Other (sedated) Labs: CBC, BMP 05/09/17 05:13 05/09/17 05:13 INR, PTT INR 1.62 (0.82-1.09) H 05/09/17 05:13 Problem List - Problems (1) Respiratory failure Code(s): J96.90 - RESPIRATORY FAILURE, UNSP, UNSP W HYPOXIA OR HYPERCAPNIA Qualifiers: Chronicity: acute Respiratory failure complication: hypoxia Qualified Code(s): J96.01 - Acute respiratory failure with hypoxia (2) Sepsis Code(s): A41.9 - SEPSIS, UNSPECIFIED ORGANISM Qualifiers: Sepsis type: sepsis due to unspecified organism Qualified Code(s): A41.9 - Sepsis, unspecified organism (3) REBEKA (acute kidney injury) Code(s): N17.9 - ACUTE KIDNEY FAILURE, UNSPECIFIED (4) Anemia Code(s): D64.9 - ANEMIA, UNSPECIFIED Qualifiers: Other causes of anemia: chronic disease, other (5) Subdural hematoma Code(s): I62.00 - NONTRAUMATIC SUBDURAL HEMORRHAGE, UNSPECIFIED (6) Influenza Code(s): J11.1 - FLU DUE TO UNIDENTIFIED INFLUENZA VIRUS W OTH RESP MANIFEST Assessment/Plan - Problems (1) Sepsis Assessment/Plan: septic shock on pressors respiratory failure intubated and sedated lactic acid trending down hemodynamic support with Norepinephrine tamiflu,for influenza A meropenem leukocytosis - ID On board Microbiology 05/06/17 02:18 Urine - Urine - Catheterized Urine Culture - Final NO GROWTH OBTAINED 05/05/17 22:00 Nasopharyngeal Swab Influenza Types A,B Antigen (MAGDA) - Final 05/05/17 22:00 Nasopharyngeal Swab - Final 05/05/17 22:20 Blood - Peripheral Venous Blood Culture - Preliminary NO GROWTH OBTAINED AFTER 48 HOURS, INCUBATION TO CONTINUE FOR 3 DAYS. 05/05/17 22:20 Blood - Peripheral Venous Blood Culture - Preliminary NO GROWTH OBTAINED AFTER 48 HOURS, INCUBATION TO CONTINUE FOR 3 DAYS. Code(s): A41.9 - SEPSIS, UNSPECIFIED ORGANISM (2) REBEKA (acute kidney injury) Assessment/Plan: on presors will monitor creatinine- trending down now 1.7 from 2.0 hold ACEI renal sono noted Code(s): N17.9 - ACUTE KIDNEY FAILURE, UNSPECIFIED (3) Anemia Assessment/Plan: iron panel gi evaluation noted ppi iv s/p 3 units of prbc maintain H/h > 8 guaicic negative Code(s): D64.9 - ANEMIA, UNSPECIFIED Qualifiers: Other causes of anemia: chronic disease, other (4) Respiratory failure Assessment/Plan: intubated and sedated Code(s): J96.90 - RESPIRATORY FAILURE, UNSP, UNSP W HYPOXIA OR HYPERCAPNIA Qualifiers: Chronicity: acute Respiratory failure complication: hypoxia Qualified Code(s): J96.01 - Acute respiratory failure with hypoxia
[2017-05-09] MEDS ORDERED: fentaNYL CITRATE 250 MCG/5 ML VIAL ONE ×2 (11:39→20:11)
[2017-05-09] MEDS: FENTANYL INJECTION 500 MCG in SODIUM CHLORIDE 90 ML IVPB SCH ×2 (11:45→22:02)
--- NOTE | 2017-05-09 11:56 | PN ---
Teaching Attending Note Name of Resident: Gabriel Goff ATTENDING PHYSICIAN STATEMENT I saw and evaluated the patient. I reviewed the resident's note and discussed the case with the resident. I agree with the resident's findings and plan as documented. SUBJECTIVE: Patient seen and examined in the ICU. Remains intubated, sedated. Noted that he was changed from NE to Dopamine/Phenylephrine with apparent improvement in his hemodynamics. AC mode vent. 40% FiO2 and PEEP 8. Intake & Output 05/06/17 05/07/17 05/08/17 05/09/17 23:59 23:59 23:59 23:59 Intake Total 4805 4964 3320 1070 Output Total 1025 1575 2200 900 Balance 3780 3389 1120 170 Weight 122 lb 3.2 oz 135 lb 140 lb 141 lb 3.2 oz Last Vital Signs Temp Pulse Resp BP Pulse Ox 99.8 F H 123 H 20 118/68 97 05/09/17 06:00 05/09/17 11:00 05/09/17 11:00 05/09/17 08:00 05/09/17 11:00 Active Medications Acetaminophen (Tylenol Oral Solution -) 650 mg PO Q6H PRN PRN Reason: FEVER Last Admin: 05/06/17 17:14 Dose: 650 mg Chlorhexidine Gluconate (Peridex -) 15 ml MM BID SHANDA Last Admin: 05/09/17 09:35 Dose: 15 ml Vancomycin HCl 1,000 mg/ (Dextrose) 250 mls @ 250 mls/hr IVPB Q48H SHANDA PRN Reason: Protocol Last Admin: 05/08/17 21:25 Dose: 250 mls/hr Meropenem (Merrem (Restricted To Id) -) 500 mg in 10 mls @ 120 mls/hr IVPUSH BID SHANDA Last Admin: 05/09/17 09:35 Dose: 120 mls/hr Norepinephrine Bitartrate 8, (000 mcg/ Dextrose) 500 mls @ 6.88 mls/hr IV ASDIR SHANDA; 0.03 MCG/KG/MIN PRN Reason: Protocol Last Titration: 05/08/17 21:26 Dose: 0.32 mcg/kg/min, 75 mls/hr Fentanyl 500 mcg/ Sodium (Chloride) 100 mls @ 0 mls/hr IVPB TITR SHANDA; Titrate PRN Reason: Protocol Last Admin: 05/09/17 11:45 Dose: 10 mls/hr Insulin Aspart (Novolog Vial Sliding Scale -) 1 vial SQ ACHS [facility] PRN Reason: Protocol Last Admin: 05/09/17 06:21 Dose: 4 units Mupirocin (Bactroban Ointment (For Decolonization) -) 1 applic NS BID [facility] Stop: 05/11/17 12:59 Last Admin: 05/09/17 09:34 Dose: 1 applic Oseltamivir Phosphate (Tamiflu -) 30 mg PO DAILY [facility] Stop: 05/11/17 13:29 Last Admin: 05/09/17 09:33 Dose: 30 mg Pantoprazole Sodium (Protonix Iv) 40 mg IVPUSH BID [facility] Last Admin: 05/09/17 09:36 Dose: 40 mg Gen: intubated, sedated Heart: tachycardic, regular Lung: scattered rhonchi Abd: soft, nontender Ext: sacral edema, R hip incision clean, healed without erythema Laboratory Results - last 24 hr 05/05/17 05/08/17 05/08/17 22:10 05:25 18:20 WBC RBC Hgb Hct MCV MCH MCHC RDW Plt Count MPV Neutrophils % Neutrophils % (Manual) 82.3 Band Neutrophils % 9.4 Lymphocytes % Lymphocytes % (Manual) 7.3 L Monocytes % (Manual) 0 L D Eosinophils % (Manual) 1.0 Basophils % (Manual) 0.0 Myelocytes % (Man) 0 D Promyelocytes % (Man) 0 Metamyelocytes 0 D Hypochromia 0 Toxic Granulation 1+ Dohle Bodies 1+ Platelet Estimate Normal Polychromasia 1+ Poikilocytosis 0 Anisocytosis 1+ Microcytosis 0 Macrocytosis 1+ PT with INR INR PTT (Actin FS) Anticoagulation Therapy Puncture Site ABG pH ABG pCO2 at Pt Temp ABG pO2 at Pt Temp ABG HCO3 ABG O2 Sat (Measured) ABG O2 Content ABG Base Excess Jabari Test O2 Delivery Device Oxygen Flow Rate Vent Mode Vent Rate Mechanical Rate PEEP Pressure Support Vent Sodium Potassium Chloride Carbon Dioxide Anion Gap BUN Creatinine Creat Clearance w eGFR POC Glucometer 262.98655 Random Glucose Calcium Phosphorus Magnesium Total Bilirubin AST ALT Alkaline Phosphatase Total Protein Albumin Blood Type B POSITIVE Antibody Screen Negative Crossmatch See Detail 05/08/17 05/09/17 05/09/17 21:39 05:13 05:13 WBC 28.3 H RBC 3.17 L Hgb 9.6 L Hct 29.6 L MCV 93.3 MCH 30.4 MCHC 32.5 RDW 17.5 H Plt Count 232 MPV 8.3 Neutrophils % No Result Required. Neutrophils % (Manual) Band Neutrophils % Lymphocytes % No Result Required. Lymphocytes % (Manual) Monocytes % (Manual) Eosinophils % (Manual) Basophils % (Manual) Myelocytes % (Man) Promyelocytes % (Man) Metamyelocytes Hypochromia Toxic Granulation Dohle Bodies Platelet Estimate Polychromasia Poikilocytosis Anisocytosis Microcytosis Macrocytosis PT with INR 18.30 H INR 1.62 H PTT (Actin FS) 36.6 H Anticoagulation Therapy Puncture Site ABG pH ABG pCO2 at Pt Temp ABG pO2 at Pt Temp ABG HCO3 ABG O2 Sat (Measured) ABG O2 Content ABG Base Excess Jabari Test O2 Delivery Device Oxygen Flow Rate Vent Mode Vent Rate Mechanical Rate PEEP Pressure Support Vent Sodium Potassium Chloride Carbon Dioxide Anion Gap BUN Creatinine Creat Clearance w eGFR POC Glucometer 209.80674 Random Glucose Calcium Phosphorus Magnesium Total Bilirubin AST ALT Alkaline Phosphatase Total Protein Albumin Blood Type Antibody Screen Crossmatch 05/09/17 05/09/17 05/09/17 05:13 05:16 06:11 WBC RBC Hgb Hct MCV MCH MCHC RDW Plt Count MPV Neutrophils % Neutrophils % (Manual) Band Neutrophils % Lymphocytes % Lymphocytes % (Manual) Monocytes % (Manual) Eosinophils % (Manual) Basophils % (Manual) Myelocytes % (Man) Promyelocytes % (Man) Metamyelocytes Hypochromia Toxic Granulation Dohle Bodies Platelet Estimate Polychromasia Poikilocytosis Anisocytosis Microcytosis Macrocytosis PT with INR INR PTT (Actin FS) Anticoagulation Therapy No Result Required. Puncture Site Right radial ABG pH 7.32 L ABG pCO2 at Pt Temp 43.2 ABG pO2 at Pt Temp 65.5 L ABG HCO3 21.4 L ABG O2 Sat (Measured) 93.2 ABG O2 Content 7.4 L* ABG Base Excess -3.8 L Jabari Test Positive O2 Delivery Device Vent Oxygen Flow Rate 40 Vent Mode No Result Required. Vent Rate 16 Mechanical Rate Yes PEEP 5.0 Pressure Support Vent 450 Sodium 136 Potassium 4.7 Chloride 104 Carbon Dioxide 23 Anion Gap 9 BUN 38 H D Creatinine 1.4 H Creat Clearance w eGFR 47.94 POC Glucometer 274.55144 Random Glucose 184 H D Calcium 7.4 L Phosphorus 2.8 D Magnesium 2.2 Total Bilirubin 1.3 H D AST 19 D ALT 13 D Alkaline Phosphatase 143 H Total Protein 4.9 L Albumin 1.3 L Blood Type Antibody Screen Crossmatch ASSESSMENT AND PLAN: Acute Hypoxic Respiratory Failure Influenza A Pneumonia Septic Shock Acute Kidney Injury Lactic Acidosis Anemia s/p PRBC transfusions Subdural Hematoma HTN Dementia Recent R Hip Fracture s/p surgery - antibiotics, tamiflu per ID - IVF to keep CVP 8-12 - titrate pressors to maintain MAP >65 - monitor urine output, creatinine - AC being held - PPI - monitor H/H - Sedation vacations to assess mental status - spontaneous breathing trials as tolerated when mental status improves - enteral feeds - DVT/GI prophylaxis - continue ICU monitoring Dr Dorado Critical care time spent in reviewing chart, evaluating patient and formulating plan 38 min
[2017-05-09] MEDS: ACETAMINOPHEN 650 MG/20.3 ML ORAL SOLUTION (CUPS) PO PRN (13:09)
--- NOTE | 2017-05-09 13:46 | PN ---
Physical Exam: SUBJECTIVE: Patient seen and examined Patient intubated/sedated/on pressors. Vent Settings- Rate 14, TV 450, FIO2 40%, PEEP 5 OBJECTIVE: Vital Signs Period Temp Pulse Resp BP Sys/[place] Pulse Ox Last 24 Hr 99.2 F-100.2 F 97-123 14-21 88-123/48-94 94-98 Gen: elderly, frail man, sedated, intubated HEENT:+ cough/gag to deep suction, PULM: clear to auscultation bilaterally , no wheezes, CV; tachycardic, s1, s2, regular rhythm, no m/r/g appreciated ABD: soft, NT, ND, normal bowel sounds EXT: no edema, 2+ pulses Neuro: Sedated, Intubated Laboratory Results - last 24 hr 05/05/17 05/08/17 05/08/17 22:10 05:25 18:20 WBC RBC Hgb Hct MCV MCH MCHC RDW Plt Count MPV Neutrophils % Neutrophils % (Manual) 82.3 Band Neutrophils % 9.4 Lymphocytes % Lymphocytes % (Manual) 7.3 L Monocytes % (Manual) 0 L D Eosinophils % (Manual) 1.0 Basophils % (Manual) 0.0 Myelocytes % (Man) 0 D Promyelocytes % (Man) 0 Metamyelocytes 0 D Hypochromia 0 Toxic Granulation 1+ Dohle Bodies 1+ Platelet Estimate Normal Polychromasia 1+ Poikilocytosis 0 Anisocytosis 1+ Microcytosis 0 Macrocytosis 1+ PT with INR INR PTT (Actin FS) Anticoagulation Therapy Puncture Site ABG pH ABG pCO2 at Pt Temp ABG pO2 at Pt Temp ABG HCO3 ABG O2 Sat (Measured) ABG O2 Content ABG Base Excess Jabari Test O2 Delivery Device Oxygen Flow Rate Vent Mode Vent Rate Mechanical Rate PEEP Pressure Support Vent Sodium Potassium Chloride Carbon Dioxide Anion Gap BUN Creatinine Creat Clearance w eGFR POC Glucometer 262.30301 Random Glucose Calcium Phosphorus Magnesium Total Bilirubin AST ALT Alkaline Phosphatase Total Protein Albumin Blood Type B POSITIVE Antibody Screen Negative Crossmatch See Detail 05/08/17 05/09/17 05/09/17 21:39 05:13 05:13 WBC 28.3 H RBC 3.17 L Hgb 9.6 L Hct 29.6 L MCV 93.3 MCH 30.4 MCHC 32.5 RDW 17.5 H Plt Count 232 MPV 8.3 Neutrophils % No Result Required. Neutrophils % (Manual) Band Neutrophils % Lymphocytes % No Result Required. Lymphocytes % (Manual) Monocytes % (Manual) Eosinophils % (Manual) Basophils % (Manual) Myelocytes % (Man) Promyelocytes % (Man) Metamyelocytes Hypochromia Toxic Granulation Dohle Bodies Platelet Estimate Polychromasia Poikilocytosis Anisocytosis Microcytosis Macrocytosis PT with INR 18.30 H INR 1.62 H PTT (Actin FS) 36.6 H Anticoagulation Therapy Puncture Site ABG pH ABG pCO2 at Pt Temp ABG pO2 at Pt Temp ABG HCO3 ABG O2 Sat (Measured) ABG O2 Content ABG Base Excess Jabari Test O2 Delivery Device Oxygen Flow Rate Vent Mode Vent Rate Mechanical Rate PEEP Pressure Support Vent Sodium Potassium Chloride Carbon Dioxide Anion Gap BUN Creatinine Creat Clearance w eGFR POC Glucometer 209.38990 Random Glucose Calcium Phosphorus Magnesium Total Bilirubin AST ALT Alkaline Phosphatase Total Protein Albumin Blood Type Antibody Screen Crossmatch 05/09/17 05/09/17 05/09/17 05:13 05:16 06:11 WBC RBC Hgb Hct MCV MCH MCHC RDW Plt Count MPV Neutrophils % Neutrophils % (Manual) Band Neutrophils % Lymphocytes % Lymphocytes % (Manual) Monocytes % (Manual) Eosinophils % (Manual) Basophils % (Manual) Myelocytes % (Man) Promyelocytes % (Man) Metamyelocytes Hypochromia Toxic Granulation Dohle Bodies Platelet Estimate Polychromasia Poikilocytosis Anisocytosis Microcytosis Macrocytosis PT with INR INR PTT (Actin FS) Anticoagulation Therapy No Result Required. Puncture Site Right radial ABG pH 7.32 L ABG pCO2 at Pt Temp 43.2 ABG pO2 at Pt Temp 65.5 L ABG HCO3 21.4 L ABG O2 Sat (Measured) 93.2 ABG O2 Content 7.4 L* ABG Base Excess -3.8 L Jabari Test Positive O2 Delivery Device Vent Oxygen Flow Rate 40 Vent Mode No Result Required. Vent Rate 16 Mechanical Rate Yes PEEP 5.0 Pressure Support Vent 450 Sodium 136 Potassium 4.7 Chloride 104 Carbon Dioxide 23 Anion Gap 9 BUN 38 H D Creatinine 1.4 H Creat Clearance w eGFR 47.94 POC Glucometer 274.59198 Random Glucose 184 H D Calcium 7.4 L Phosphorus 2.8 D Magnesium 2.2 Total Bilirubin 1.3 H D AST 19 D ALT 13 D Alkaline Phosphatase 143 H Total Protein 4.9 L Albumin 1.3 L Blood Type Antibody Screen Crossmatch 05/09/17 12:01 WBC RBC Hgb Hct MCV MCH MCHC RDW Plt Count MPV Neutrophils % Neutrophils % (Manual) Band Neutrophils % Lymphocytes % Lymphocytes % (Manual) Monocytes % (Manual) Eosinophils % (Manual) Basophils % (Manual) Myelocytes % (Man) Promyelocytes % (Man) Metamyelocytes Hypochromia Toxic Granulation Dohle Bodies Platelet Estimate Polychromasia Poikilocytosis Anisocytosis Microcytosis Macrocytosis PT with INR INR PTT (Actin FS) Anticoagulation Therapy Puncture Site ABG pH ABG pCO2 at Pt Temp ABG pO2 at Pt Temp ABG HCO3 ABG O2 Sat (Measured) ABG O2 Content ABG Base Excess Jabari Test O2 Delivery Device Oxygen Flow Rate Vent Mode Vent Rate Mechanical Rate PEEP Pressure Support Vent Sodium Potassium Chloride Carbon Dioxide Anion Gap BUN Creatinine Creat Clearance w eGFR POC Glucometer 286.45958 Random Glucose Calcium Phosphorus Magnesium Total Bilirubin AST ALT Alkaline Phosphatase Total Protein Albumin Blood Type Antibody Screen Crossmatch Active Medications Generic Name Dose Route Start Last Admin Trade Name Freq PRN Reason Stop Dose Admin Acetaminophen 650 mg 05/06/17 17:00 05/09/17 13:09 Tylenol Oral Solution - PO 650 mg Q6H PRN Administration FEVER Chlorhexidine Gluconate 15 ml 05/07/17 22:00 05/09/17 09:35 Peridex - MM 15 ml BID SHANDA Administration Vancomycin HCl 1,000 mg/ 250 mls @ 250 mls/hr 05/06/17 22:00 05/08/17 21:25 Dextrose IVPB 250 mls/hr Q48H SHANDA Administration Protocol Meropenem 500 mg in 10 mls @ 120 mls/hr 05/06/17 14:45 05/09/17 09:35 Merrem (Restricted To Id) - IVPUSH 120 mls/hr BID SHANDA Administration Norepinephrine Bitartrate 8, 500 mls @ 6.88 mls/hr 05/07/17 11:45 05/08/17 21 :26 000 mcg/ Dextrose IV 0.32 mcg/kg/min ASDIR SHANDA 75 mls/hr Protocol Titration 0.03 MCG/KG/MIN Fentanyl 500 mcg/ Sodium 100 mls @ 0 mls/hr 05/08/17 20:30 05/09/17 11:45 Chloride IVPB 10 mls/hr TITR SHANDA Administration Protocol Titrate Insulin Aspart 1 vial 05/06/17 16:30 05/09/17 12:00 Novolog Vial Sliding Scale - SQ 6 units ACHS SHANDA Administration Protocol Mupirocin 1 applic 05/06/17 13:00 05/09/17 09:34 Bactroban Ointment (For Decolonization) - NS 05/11/17 12:59 1 applic BID SHANDA Administration Oseltamivir Phosphate 30 mg 05/06/17 13:30 05/09/17 09:33 Tamiflu - PO 05/11/17 13:29 30 mg DAILY SHANDA Administration Pantoprazole Sodium 40 mg 05/07/17 22:00 05/09/17 09:36 Protonix Iv IVPUSH 40 mg BID SHANDA Administration ASSESSMENT/PLAN: 86 year old M with pmh of dementia and HTN presented in septic shock #ID Septic shock -ID on board, Dr. Garcia -Follow abx recommendations from ID -Continue Vanc/Meropenem/Tamiflu -Continue Levophed, Fentanyl, Keep MAP >65 -Stop Versed to monitor patient off sedation. #CV Atrial fibrillation with RVR -Hold AC in the setting of Anemia & subdural bleed -Cardiology on board, Dr. Mays -Keep CVP 8-12 #Pulm Acute respiratory failure -Intubated/sedated -Continue Levophed, Fentanyl -Stop versed, Start Propofol if needed -Continue ventilatory support #Neuro Subdural bleeds -Evaluated by neurosurgery, No recommendation for intervention at this time. #Heme Anemia of unknown etiology, possible GI bleed -Hgb stable, responded well -Monitor H/H -Transfuse as needed #Renal REBEKA, likely prerenal vs ATN from sepsis -Continue D5 1/2 NS @ 75 cc/hr -Monitor Urine lytes, BUN, Cr. #Endo Hyperglycemia -BGM ACHS -ISS ACHS #FEN/GI -No IVF -Monitor BMPs -Tube feed osmolite #PPx -Protnoix 40 mg IV BID -SCDs, no ac in the setting of anemia and subdural bleeds Dispo: Continue ICU level of care Visit type - Emergency Visit Emergency Visit: Yes ED Registration Date: 05/05/17 Care time: The patient presented to the Emergency Department on the above date and was hospitalized for further evaluation of their emergent condition. - New Patient This patient is new to me today: No - Critical Care Critical Care patient: Yes Total Critical Care Time (in minutes): 45 Critical Care Statement: The care of this patient involved high complexity decision making to prevent further life threatening deterioration of the patient 's condition and/or to evaluate & treat vital organ system(s) failure or risk of failure.
[2017-05-09 14:09] LABS: PLATELET ESTIMATE NORMAL
--- NOTE | 2017-05-09 16:03 | PN ---
Progress Note, Physician History of Present Illness: continues to be on pressors patient running low grade temp intubated has been stable - Current Medication List Current Medications: Active Medications Acetaminophen (Tylenol Oral Solution -) 650 mg PO Q6H PRN PRN Reason: FEVER Last Admin: 05/09/17 13:09 Dose: 650 mg Chlorhexidine Gluconate (Peridex -) 15 ml MM BID SHANDA Last Admin: 05/09/17 09:35 Dose: 15 ml Vancomycin HCl 1,000 mg/ (Dextrose) 250 mls @ 250 mls/hr IVPB Q48H SHANDA PRN Reason: Protocol Last Admin: 05/08/17 21:25 Dose: 250 mls/hr Meropenem (Merrem (Restricted To Id) -) 500 mg in 10 mls @ 120 mls/hr IVPUSH BID SHANDA Last Admin: 05/09/17 09:35 Dose: 120 mls/hr Norepinephrine Bitartrate 8, (000 mcg/ Dextrose) 500 mls @ 6.88 mls/hr IV ASDIR SHANDA; 0.03 MCG/KG/MIN PRN Reason: Protocol Last Titration: 05/08/17 21:26 Dose: 0.32 mcg/kg/min, 75 mls/hr Fentanyl 500 mcg/ Sodium (Chloride) 100 mls @ 0 mls/hr IVPB TITR SHANDA; Titrate PRN Reason: Protocol Last Admin: 05/09/17 11:45 Dose: 10 mls/hr Insulin Aspart (Novolog Vial Sliding Scale -) 1 vial SQ ACHS SHANDA PRN Reason: Protocol Last Admin: 05/09/17 12:00 Dose: 6 units Mupirocin (Bactroban Ointment (For Decolonization) -) 1 applic NS BID [facility] Stop: 05/11/17 12:59 Last Admin: 05/09/17 09:34 Dose: 1 applic Oseltamivir Phosphate (Tamiflu -) 30 mg PO DAILY [facility] Stop: 05/11/17 13:29 Last Admin: 05/09/17 09:33 Dose: 30 mg Pantoprazole Sodium (Protonix Iv) 40 mg IVPUSH BID [facility] Last Admin: 05/09/17 09:36 Dose: 40 mg - Objective Vital Signs: Vital Signs Temperature 99.8 F H 05/09/17 06:00 Pulse Rate 123 H 05/09/17 11:00 Respiratory Rate 24 05/09/17 14:23 Blood Pressure 118/68 05/09/17 08:00 O2 Sat by Pulse Oximetry (%) 97 05/09/17 11:00 Constitutional: Yes: Other Cardiovascular: Yes: S1, S2 Respiratory: Yes: Intubated, Mechanically Ventilated Gastrointestinal: Yes: Normal Bowel Sounds, Soft Musculoskeletal: Yes: WNL Extremities: Yes: WNL Neurological: Yes: Other Labs: CBC, BMP 05/09/17 05:13 05/09/17 05:13 INR, PTT INR 1.62 (0.82-1.09) H 05/09/17 05:13 Assessment/Plan Problem List - Problems (1) Sepsis Code(s): A41.9 - SEPSIS, UNSPECIFIED ORGANISM (2) REBEKA (acute kidney injury) Code(s): N17.9 - ACUTE KIDNEY FAILURE, UNSPECIFIED (3) Anemia Code(s): D64.9 - ANEMIA, UNSPECIFIED Qualifiers: Other causes of anemia: chronic disease, other (4) Respiratory failure Code(s): J96.90 - RESPIRATORY FAILURE, UNSP, UNSP W HYPOXIA OR HYPERCAPNIA wound infection influenza a afib with rapid rvr leukocytosis wbc conitnues to remain high plan continue current abx continue as per icu patient still on pressor prognosis continues to be poor will check vanco trough cc time 40
--- NOTE | 2017-05-09 16:09 | PN ---
Progress Note, Physician History of Present Illness: Pt seen and examined at bedside. He remains in the ICU. Pt remains intubated. - Current Medication List Current Medications: Active Medications Acetaminophen (Tylenol Oral Solution -) 650 mg PO Q6H PRN PRN Reason: FEVER Last Admin: 05/09/17 13:09 Dose: 650 mg Chlorhexidine Gluconate (Peridex -) 15 ml MM BID [facility] Last Admin: 05/09/17 09:35 Dose: 15 ml Vancomycin HCl 1,000 mg/ (Dextrose) 250 mls @ 250 mls/hr IVPB Q48H SHANDA PRN Reason: Protocol Last Admin: 05/08/17 21:25 Dose: 250 mls/hr Meropenem (Merrem (Restricted To Id) -) 500 mg in 10 mls @ 120 mls/hr IVPUSH BID SHANDA Last Admin: 05/09/17 09:35 Dose: 120 mls/hr Norepinephrine Bitartrate 8, (000 mcg/ Dextrose) 500 mls @ 6.88 mls/hr IV ASDIR SHANDA; 0.03 MCG/KG/MIN PRN Reason: Protocol Last Titration: 05/08/17 21:26 Dose: 0.32 mcg/kg/min, 75 mls/hr Fentanyl 500 mcg/ Sodium (Chloride) 100 mls @ 0 mls/hr IVPB TITR SHANDA; Titrate PRN Reason: Protocol Last Admin: 05/09/17 11:45 Dose: 10 mls/hr Insulin Aspart (Novolog Vial Sliding Scale -) 1 vial SQ ACHS SHANDA PRN Reason: Protocol Last Admin: 05/09/17 12:00 Dose: 6 units Mupirocin (Bactroban Ointment (For Decolonization) -) 1 applic NS BID [facility] Stop: 05/11/17 12:59 Last Admin: 05/09/17 09:34 Dose: 1 applic Oseltamivir Phosphate (Tamiflu -) 30 mg PO DAILY [facility] Stop: 05/11/17 13:29 Last Admin: 05/09/17 09:33 Dose: 30 mg Pantoprazole Sodium (Protonix Iv) 40 mg IVPUSH BID [facility] Last Admin: 05/09/17 09:36 Dose: 40 mg - Objective Vital Signs: Vital Signs Temperature 99.8 F H 05/09/17 06:00 Pulse Rate 123 H 05/09/17 11:00 Respiratory Rate 24 05/09/17 14:23 Blood Pressure 118/68 05/09/17 08:00 O2 Sat by Pulse Oximetry (%) 97 05/09/17 11:00 Constitutional: Yes: Calm Eyes: Yes: Conjunctiva Clear HENT: Yes: Atraumatic Neck: Yes: Supple Cardiovascular: Yes: S1, S2 Respiratory: Yes: Mechanically Ventilated Gastrointestinal: Yes: Soft Genitourinary: Yes: [place] Present Musculoskeletal: Yes: Muscle Weakness Edema: No Neurological: Yes: Lethargy Labs: CBC, BMP 05/09/17 05:13 05/09/17 05:13 INR, PTT INR 1.62 (0.82-1.09) H 05/09/17 05:13 - ....Imaging Chest X-ray: Report Reviewed (bilateral effusions) Problem List - Problems (1) [id number] kidney injury Code(s): N17.9 - ACUTE KIDNEY FAILURE, UNSPECIFIED; N18.9 - CHRONIC KIDNEY DISEASE, UNSPECIFIED Qualifiers: Chronic kidney disease stage: stage 3 (moderate) (2) Influenza Code(s): J11.1 - FLU DUE TO UNIDENTIFIED INFLUENZA VIRUS W OTH RESP MANIFEST (3) Respiratory failure Code(s): J96.90 - RESPIRATORY FAILURE, UNSP, UNSP W HYPOXIA OR HYPERCAPNIA Qualifiers: Chronicity: acute Respiratory failure complication: hypoxia Qualified Code(s): J96.01 - Acute respiratory failure with hypoxia (4) Sepsis Code(s): A41.9 - SEPSIS, UNSPECIFIED ORGANISM Qualifiers: Sepsis type: sepsis due to unspecified organism Qualified Code(s): A41.9 - Sepsis, unspecified organism (5) REBEKA (acute kidney injury) Code(s): N17.9 - ACUTE KIDNEY FAILURE, UNSPECIFIED Assessment/Plan Current Medications Generic Name Dose Route Start Last Admin Trade Name Freq PRN Reason Stop Dose Admin Acetaminophen 650 mg 05/06/17 17:00 05/09/17 13:09 Tylenol Oral Solution - PO 650 mg Q6H PRN Administration FEVER Chlorhexidine Gluconate 15 ml 05/07/17 22:00 05/09/17 09:35 Peridex - MM 15 ml BID SHANDA Administration Vancomycin HCl 1,000 mg/ 250 mls @ 250 mls/hr 05/06/17 22:00 05/08/17 21:25 Dextrose IVPB 250 mls/hr Q48H SHANDA Administration Protocol Meropenem 500 mg in 10 mls @ 120 mls/hr 05/06/17 14:45 05/09/17 09:35 Merrem (Restricted To Id) - IVPUSH 120 mls/hr BID SHANDA Administration Norepinephrine Bitartrate 8, 500 mls @ 6.88 mls/hr 05/07/17 11:45 05/08/17 21 :26 000 mcg/ Dextrose IV 0.32 mcg/kg/min ASDIR SHANDA 75 mls/hr Protocol Titration 0.03 MCG/KG/MIN Fentanyl 500 mcg/ Sodium 100 mls @ 0 mls/hr 05/08/17 20:30 05/09/17 11:45 Chloride IVPB 10 mls/hr TITR SHANDA Administration Protocol Titrate Insulin Aspart 1 vial 05/06/17 16:30 05/09/17 12:00 Novolog Vial Sliding Scale - SQ 6 units ACHS SHANDA Administration Protocol Mupirocin 1 applic 05/06/17 13:00 05/09/17 09:34 Bactroban Ointment (For Decolonization) - NS 05/11/17 12:59 1 applic BID SHANDA Administration Oseltamivir Phosphate 30 mg 05/06/17 13:30 05/09/17 09:33 Tamiflu - PO 05/11/17 13:29 30 mg DAILY SHANDA Administration Pantoprazole Sodium 40 mg 05/07/17 22:00 05/09/17 09:36 Protonix Iv IVPUSH 40 mg BID SHANDA Administration Impression 1. REBEKA 2. hip fracture 3. htn 4. dementia 5. anemia 6. hypomagnesemia 7. iron deficiency 8. hyperkalemia 9. respiratory failure requiring intubation 10. sepsis Plan - monitor renal function - repeat labs in am - d/c fluids and start feeds - cont vent support - check cxr in am - likely REBEKA from sepsis and prerenal disease causing ATN - hold cesar Dr Rubi
[2017-05-09] MEDS ORDERED: NOREPINEPHRINE BITARTRATE 4 MG/4 ML ML IV ONE ×2 (16:18→20:12)
[2017-05-09] MEDS: NOREPINEPHRINE BITARTRATE 8,000 MCG in DEXTROSE 5%-WATER - 492 ML IV SCH (17:04)
--- NOTE | 2017-05-09 19:12 | PN ---
Progress Note, Physician History of Present Illness: Sedated and intubated, remains in persistent afib with episodes of RVR on Levophed gtt. - Current Medication List Current Medications: Active Medications Acetaminophen (Tylenol Oral Solution -) 650 mg PO Q6H PRN PRN Reason: FEVER Last Admin: 05/09/17 13:09 Dose: 650 mg Chlorhexidine Gluconate (Peridex -) 15 ml MM BID [facility] Last Admin: 05/09/17 09:35 Dose: 15 ml Vancomycin HCl 1,000 mg/ (Dextrose) 250 mls @ 250 mls/hr IVPB Q48H SHANDA PRN Reason: Protocol Last Admin: 05/08/17 21:25 Dose: 250 mls/hr Meropenem (Merrem (Restricted To Id) -) 500 mg in 10 mls @ 120 mls/hr IVPUSH BID SHANDA Last Admin: 05/09/17 09:35 Dose: 120 mls/hr Norepinephrine Bitartrate 8, (000 mcg/ Dextrose) 500 mls @ 6.88 mls/hr IV ASDIR SHANDA; 0.03 MCG/KG/MIN PRN Reason: Protocol Last Admin: 05/09/17 17:04 Dose: 0.28 mcg/kg/min, 65 mls/hr Fentanyl 500 mcg/ Sodium (Chloride) 100 mls @ 0 mls/hr IVPB TITR SHANDA; Titrate PRN Reason: Protocol Last Admin: 05/09/17 11:45 Dose: 10 mls/hr Insulin Aspart (Novolog Vial Sliding Scale -) 1 vial SQ ACHS SHANDA PRN Reason: Protocol Last Admin: 05/09/17 17:18 Dose: 2 units Mupirocin (Bactroban Ointment (For Decolonization) -) 1 applic NS BID [facility] Stop: 05/11/17 12:59 Last Admin: 05/09/17 09:34 Dose: 1 applic Oseltamivir Phosphate (Tamiflu -) 30 mg PO DAILY [facility] Stop: 05/11/17 13:29 Last Admin: 05/09/17 09:33 Dose: 30 mg Pantoprazole Sodium (Protonix Iv) 40 mg IVPUSH BID [facility] Last Admin: 05/09/17 09:36 Dose: 40 mg - Objective Vital Signs: Vital Signs Temperature 99.8 F H 05/09/17 06:00 Pulse Rate 116 H 05/09/17 18:00 Respiratory Rate 20 05/09/17 18:00 Blood Pressure 130/63 05/09/17 18:00 O2 Sat by Pulse Oximetry (%) 97 05/09/17 11:00 Cardiovascular: Yes: Tachycardia, Pulse Irregular Respiratory: Yes: Intubated, Mechanically Ventilated, Rhonchi Gastrointestinal: Yes: Normal Bowel Sounds, Soft Edema: No Labs: CBC, BMP 05/09/17 05:13 05/09/17 05:13 INR, PTT INR 1.62 (0.82-1.09) H 05/09/17 05:13 - ....Imaging Chest X-ray: Report Reviewed (Bilateral effusions, left retrocardiac ATX) EKG: Report Reviewed (Tele: Episodes of rapid afib) Problem List - Problems (1) Persistent atrial fibrillation with rapid ventricular response Code(s): I48.1 - PERSISTENT ATRIAL FIBRILLATION (2) Influenza Code(s): J11.1 - FLU DUE TO UNIDENTIFIED INFLUENZA VIRUS W OTH RESP MANIFEST (3) Respiratory failure Code(s): J96.90 - RESPIRATORY FAILURE, UNSP, UNSP W HYPOXIA OR HYPERCAPNIA Qualifiers: Chronicity: acute Respiratory failure complication: hypoxia Qualified Code(s): J96.01 - Acute respiratory failure with hypoxia (4) Subdural hematoma Code(s): I62.00 - NONTRAUMATIC SUBDURAL HEMORRHAGE, UNSPECIFIED (5) Pneumonia Code(s): J18.9 - PNEUMONIA, UNSPECIFIED ORGANISM Qualifiers: Pneumonia type: due to unspecified organism Laterality: left Lung location: lower lobe of lung Qualified Code(s): J18.1 - Lobar pneumonia, unspecified organism (6) [id number] kidney injury Code(s): N17.9 - ACUTE KIDNEY FAILURE, UNSPECIFIED; N18.9 - CHRONIC KIDNEY DISEASE, UNSPECIFIED Qualifiers: Chronic kidney disease stage: stage 3 (moderate) Assessment/Plan 1. Acute hypoxic respiratory failure, Influenza A, pneumonia and septic shock with lactic acidosis 2. Persistent atrial fibrillation with RVR [id number] not on anticoagulation due to history of SDH 2. CAD with evidence of demand ischemic injury, angina pectoris 3. Diastolic LV dysfunction with class 0-I NYHA classification LV failure 4. Profound anemia, source to be determined, post transfusion 5. Acute on chronic kidney disease improving 6. Hyperglycemia/DM 7. History of HTN, currently hypotensive/septic shock 8. Hyperkalemia resolved 9. Chronic SDH 10. Dementia 11. Recent R Hip Fracture s/p surgery PLAN: 1. Antibiotics and Tamiflu 2. Wean Pressors (Levophed) to maintain MAP > 65, IVF to keep CVP 8-12 3. Monitor Hgb and transfuse as needed maintaining Hgb equal or > 8.0 4. Vent wean per critical care team 5. Start Amio 200 bid for rate-control 6. Not ideal a/c candidate due to Chronic SDH 7. Enteral feeds, mechanical DVT and GI prophylaxis
[2017-05-09] MEDS: AMIODARONE HCL 200 MG TABLET (FP) NGT SCH (22:03)
[2017-05-10 06:25] LABS: HEMATOCRIT 28.4 % (35.4-49); HEMOGLOBIN 9.2 GM/dL (11.7-16.9); MCH 30.5 pg (25.7-33.7); MCHC 32.4 g/dl (32.0-35.9); MEAN CELL VOLUME 94.1 fl (80-96); MEAN PLT VOLUME 8.3 fl (7.5-11.1); PLATELET COUNT 213 K/MM3 (134-434); RBC 3.02 M/mm3 (4.00-5.60); RDW 17.5 % (11.9-15.9); WHITE BLOOD COUNT 22.8 K/mm3 (4.0-10.0)
[2017-05-10 06:53] LABS: ALBUMIN 1.3 g/dl (3.4-5.0); ALK PHOS 235 U/L (45-117); ANION GAP 9 (8-16); BILIRUBIN,TOTAL 1.4 mg/dL (0.2-1.0); BLOOD UREA NITROGEN 34 mg/dL (7-18); CALCIUM 7.5 mg/dL (8.5-10.1); CHLORIDE 102 mmol/L (98-107); CO2 23 mmol/L (21-32); CREATININE 1.2 mg/dL (0.7-1.3); GLUCOSE,RANDOM 182 mg/dL (74-106); MAGNESIUM 1.9 mg/dL (1.8-2.4); PHOSPHOROUS 2.7 mg/dL (2.5-4.9); POTASSIUM 4.7 mmol/L (3.5-5.1); SGOT/AST 22 U/L (15-37); SGPT/ALT 12 U/L (12-78); SODIUM 134 mmol/L (136-145)
[2017-05-10 07:08] LABS: ARTERIAL BLD GAS O2 SATURATION 99.5 % (90-98.9); ARTERIAL BLOOD GAS BASE EXCESS -3.3 meq/l (-2-2); ARTERIAL BLOOD GAS PCO2 33.3 mmHg (35-45)
[2017-05-10] MEDS: INSULIN SLIDING SCALE (NOVOLOG) 1 VIAL SQ SCH ×4 (07:09→22:31)
[2017-05-10 07:18] LABS: ALLENS TEST POSITIVE
[2017-05-10] MEDS ORDERED: fentaNYL CITRATE 250 MCG/5 ML VIAL ONE ×4 (07:51→21:33)
[2017-05-10] MEDS: FENTANYL INJECTION 500 MCG in SODIUM CHLORIDE 90 ML IVPB SCH ×3 (08:00→22:17)
[2017-05-10 08:27] LABS: ACANTHOCYTES 1+; ANISOCYTOSIS 1+; PLATELET ESTIMATE NORMAL
[2017-05-10] MEDS: AMIODARONE HCL 200 MG TABLET (FP) NGT SCH ×2 (09:52→22:19)
[2017-05-10] MEDS: MUPIROCIN 2% TOPICAL OINTMENT FOR DECOLONIZATION NS SCH ×2 (09:52→22:18)
[2017-05-10] MEDS: MEROPENEM 500 MG PUSH 500 MG/10 ML DISP.SYRIN IVPUSH SCH ×2 (09:52→22:19)
[2017-05-10] MEDS: PANTOPRAZOLE SODIUM 40 MG VIAL IVPUSH SCH ×2 (09:53→22:20)
[2017-05-10] MEDS: OSELTAMIVIR PHOSPHATE 30 MG CAPSULE PO SCH (09:53)
[2017-05-10] MEDS: CHLORHEXIDINE GLUCONATE 0.12% 15ML CUP MM SCH ×2 (09:53→22:20)
--- NOTE | 2017-05-10 10:13 | PN ---
Progress Note (short form) - Note Progress Note: PULM/CCM Pt Seen & Examined in the ICU, events noted, remains on pressors, sedated & intubated on mechanical ventilator. Active Medications Acetaminophen (Tylenol Oral Solution -) 650 mg PO Q6H PRN PRN Reason: FEVER Last Admin: 05/09/17 13:09 Dose: 650 mg Amiodarone HCl (Cordarone -) 200 mg NGT BID [facility] Last Admin: 05/10/17 22:19 Dose: 200 mg Chlorhexidine Gluconate (Peridex -) 15 ml MM BID [facility] Last Admin: 05/10/17 22:20 Dose: 15 ml Vancomycin HCl 1,000 mg/ (Dextrose) 250 mls @ 250 mls/hr IVPB Q48H SHANDA PRN Reason: Protocol Last Admin: 05/10/17 22:21 Dose: 250 mls/hr Meropenem (Merrem (Restricted To Id) -) 500 mg in 10 mls @ 120 mls/hr IVPUSH BID [facility] Last Admin: 05/10/17 22:19 Dose: 120 mls/hr Norepinephrine Bitartrate 8, (000 mcg/ Dextrose) 500 mls @ 6.88 mls/hr IV ASDIR SHANDA; 0.03 MCG/KG/MIN PRN Reason: Protocol Last Admin: 05/10/17 11:45 Dose: Not Given Fentanyl 500 mcg/ Sodium (Chloride) 100 mls @ 0 mls/hr IVPB TITR SHANDA; Titrate PRN Reason: Protocol Last Admin: 05/10/17 22:17 Dose: Not Given Insulin Aspart (Novolog Vial Sliding Scale -) 1 vial SQ ACHS SHANDA PRN Reason: Protocol Last Admin: 05/10/17 22:31 Dose: 2 units Mupirocin (Bactroban Ointment (For Decolonization) -) 1 applic NS BID [facility] Stop: 05/11/17 12:59 Last Admin: 05/10/17 22:18 Dose: 1 applic Oseltamivir Phosphate (Tamiflu Oral Suspension -) 75 mg PO BID [facility] Stop: 05/15/17 11:59 Last Admin: 05/10/17 22:20 Dose: 75 mg Pantoprazole Sodium (Protonix Iv) 40 mg IVPUSH BID [facility] Last Admin: 05/10/17 22:20 Dose: 40 mg Vital Signs Period Temp Pulse Resp BP Sys/[place] Pulse Ox Last 24 Hr 99.1 F-100.0 F 81-120 16-19 102-135/45-76 98-100 Intake & Output 05/07/17 05/08/17 05/09/17 05/10/17 23:59 23:59 23:59 23:59 Intake Total 4964 3320 1990 3315.6 Output Total 1575 2200 2150 600 Balance 3389 1120 -160 2715.6 Weight 61.235 kg 63.503 kg 64.047 kg 65.4 kg GEN: Elderly, frail man, sedated, intubated HEENT: PERRL, an-icteric, + cough/gag to deep suction PULM: CTAB CV: nml S1 S2, RR, tachy, no m/r/g appreciated ABD: + BS S/S N/T [id number]/[id number] EXT: + Pulses, WWPX4, (-) edema NEURO: Sedated on the Vent CBC, BMP 05/10/17 06:10 05/10/17 06:10 MICRO 05/05/17 22:20 Blood - Peripheral Venous Blood Culture - Final NO GROWTH AFTER 5 DAYS INCUBATION 05/05/17 22:20 Blood - Peripheral Venous Blood Culture - Final NO GROWTH AFTER 5 DAYS INCUBATION 05/06/17 02:18 Urine - Urine - Catheterized Urine Culture - Final NO GROWTH OBTAINED 05/05/17 22:00 Nasopharyngeal Swab Influenza Types A,B Antigen (MAGDA) --> Influenza A+ Final 05/05/17 22:00 Nasopharyngeal Swab - Final RECENT STUDIES TO NOTE: CXR 05/10: Since 05/09/2017 at 0745 hours, the bilateral pulmonary and pleural changes, endotracheal tube, nasogastric tube and right line persists. Impression : No significant change since prior study. ASSESS: Acute Hypoxic Respiratory Failure Influenza A Pneumonia Septic Shock Acute Kidney Injury Lactic Acidosis Anemia s/p PRBC transfusions Subdural Hematoma HTN Dementia Recent R Hip Fracture s/p surgery PLAN: - antibiotics, tamiflu per ID - IVF to keep CVP 8-12 - titrate pressors to maintain MAP >65 - monitor urine output, creatinine - AC being held - PPI - monitor H/H - Sedation vacations to assess mental status - spontaneous breathing trials as tolerated when mental status improves - enteral feeds - DVT/GI prophylaxis - continue ICU monitoring DGL, [facility] ICU [id number] PULM/CCM Critical Care Total Critical Care Time (in minutes): 39 Critical Care Statement: The care of this patient involved high complexity decision making to prevent further life threatening deterioration of the patient 's condition and/or to evaluate & treat vital organ system(s) failure or risk of failure.
--- NOTE | 2017-05-10 11:38 | PN ---
Progress Note (short form) - Note Progress Note: RENAL Pt is intubated and sedated not responsive ISOLATED for influenza Last Vital Signs Temp Pulse Resp BP Pulse Ox 99.3 F 85 17 104/45 100 05/10/17 10:18 05/10/17 10:18 05/10/17 10:18 05/10/17 10:18 05/10/17 08:50 lungs bilat air entry, rhonchi cvs s1s2 rr abd soft ext +edema neuro sedated CBC, BMP 05/10/17 06:10 05/10/17 06:10 Current Medications Generic Name Dose Route Start Last Admin Trade Name Freq PRN Reason Stop Dose Admin Acetaminophen 650 mg 05/06/17 17:00 05/09/17 13:09 Tylenol Oral Solution - PO 650 mg Q6H PRN Administration FEVER Amiodarone HCl 200 mg 05/09/17 22:00 05/10/17 09:52 Cordarone - NGT 200 mg BID SHANDA Administration Chlorhexidine Gluconate 15 ml 05/07/17 22:00 05/10/17 09:53 Peridex - MM 15 ml BID SHANDA Administration Vancomycin HCl 1,000 mg/ 250 mls @ 250 mls/hr 05/06/17 22:00 05/08/17 21:25 Dextrose IVPB 250 mls/hr Q48H SHANDA Administration Protocol Meropenem 500 mg in 10 mls @ 120 mls/hr 05/06/17 14:45 05/10/17 09:52 Merrem (Restricted To Id) - IVPUSH 120 mls/hr BID SHANDA Administration Norepinephrine Bitartrate 8, 500 mls @ 6.88 mls/hr 05/07/17 11:45 05/09/17 17 :04 000 mcg/ Dextrose IV 0.28 mcg/kg/min ASDIR SHANDA 65 mls/hr Protocol Administration 0.03 MCG/KG/MIN Fentanyl 500 mcg/ Sodium 100 mls @ 0 mls/hr 05/08/17 20:30 05/10/17 08:00 Chloride IVPB 10 mls/hr TITR SHANDA Administration Protocol Titrate Insulin Aspart 1 vial 05/06/17 16:30 05/10/17 11:09 Novolog Vial Sliding Scale - SQ 4 units ACHS SHANDA Administration Protocol Mupirocin 1 applic 05/06/17 13:00 05/10/17 09:52 Bactroban Ointment (For Decolonization) - NS 05/11/17 12:59 1 applic BID SHANDA Administration Oseltamivir Phosphate 30 mg 05/06/17 13:30 05/10/17 09:53 Tamiflu - PO 05/11/17 13:29 30 mg DAILY SHANDA Administration Pantoprazole Sodium 40 mg 05/07/17 22:00 05/10/17 09:53 Protonix Iv IVPUSH 40 mg BID SHANDA Administration Impression 1. REBEKA improved 2. hip fracture 3. htn 4. dementia 5. anemia 6. hypomagnesemia 7. iron deficiency 8. hyperkalemia 9. respiratory failure requiring intubation 10. sepsis Plan - monitor renal function - would likely benefit from adjustment in his tamiflu dose - cont vent support - likely REBEKA from sepsis and prerenal disease causing ATN - hold cesar for now MV
[2017-05-10] MEDS: NOREPINEPHRINE BITARTRATE 8,000 MCG in DEXTROSE 5%-WATER - 492 ML IV SCH (11:45)
--- NOTE | 2017-05-10 11:54 | PN ---
Progress Note, Physician History of Present Illness: no change intubated - Current Medication List Current Medications: Active Medications Acetaminophen (Tylenol Oral Solution -) 650 mg PO Q6H PRN PRN Reason: FEVER Last Admin: 05/09/17 13:09 Dose: 650 mg Amiodarone HCl (Cordarone -) 200 mg NGT BID [facility] Last Admin: 05/10/17 09:52 Dose: 200 mg Chlorhexidine Gluconate (Peridex -) 15 ml MM BID [facility] Last Admin: 05/10/17 09:53 Dose: 15 ml Vancomycin HCl 1,000 mg/ (Dextrose) 250 mls @ 250 mls/hr IVPB Q48H SHANDA PRN Reason: Protocol Last Admin: 05/08/17 21:25 Dose: 250 mls/hr Meropenem (Merrem (Restricted To Id) -) 500 mg in 10 mls @ 120 mls/hr IVPUSH BID [facility] Last Admin: 05/10/17 09:52 Dose: 120 mls/hr Norepinephrine Bitartrate 8, (000 mcg/ Dextrose) 500 mls @ 6.88 mls/hr IV ASDIR SHANDA; 0.03 MCG/KG/MIN PRN Reason: Protocol Last Admin: 05/09/17 17:04 Dose: 0.28 mcg/kg/min, 65 mls/hr Fentanyl 500 mcg/ Sodium (Chloride) 100 mls @ 0 mls/hr IVPB TITR SHANDA; Titrate PRN Reason: Protocol Last Admin: 05/10/17 08:00 Dose: 10 mls/hr Insulin Aspart (Novolog Vial Sliding Scale -) 1 vial SQ ACHS SHANDA PRN Reason: Protocol Last Admin: 05/10/17 11:09 Dose: 4 units Mupirocin (Bactroban Ointment (For Decolonization) -) 1 applic NS BID [facility] Stop: 05/11/17 12:59 Last Admin: 05/10/17 09:52 Dose: 1 applic Oseltamivir Phosphate (Tamiflu -) 30 mg PO DAILY [facility] Stop: 05/11/17 13:29 Last Admin: 05/10/17 09:53 Dose: 30 mg Pantoprazole Sodium (Protonix Iv) 40 mg IVPUSH BID [facility] Last Admin: 05/10/17 09:53 Dose: 40 mg - Objective Vital Signs: Vital Signs Temperature 99.3 F 05/10/17 10:18 Pulse Rate 85 05/10/17 10:18 Respiratory Rate 16 05/10/17 11:38 Blood Pressure 104/45 05/10/17 10:18 O2 Sat by Pulse Oximetry (%) 100 05/10/17 08:50 Constitutional: Yes: Other Cardiovascular: Yes: Regular Rate and Rhythm Respiratory: Yes: Intubated, Mechanically Ventilated Gastrointestinal: Yes: Normal Bowel Sounds, Soft Musculoskeletal: Yes: WNL Extremities: Yes: WNL Neurological: Yes: Other Labs: CBC, BMP 05/10/17 06:10 05/10/17 06:10 INR, PTT INR 1.62 (0.82-1.09) H 05/09/17 05:13 - ....Imaging Chest X-ray: Report Reviewed, Image Reviewed Assessment/Plan Problem List - Problems (1) Sepsis Code(s): A41.9 - SEPSIS, UNSPECIFIED ORGANISM (2) REBEKA (acute kidney injury) Code(s): N17.9 - ACUTE KIDNEY FAILURE, UNSPECIFIED (3) Anemia Code(s): D64.9 - ANEMIA, UNSPECIFIED Qualifiers: Other causes of anemia: chronic disease, other (4) Respiratory failure Code(s): J96.90 - RESPIRATORY FAILURE, UNSP, UNSP W HYPOXIA OR HYPERCAPNIA wound infection influenza a afib with rapid rvr leukocytosis wbc high plan continue current abx continue as per icu vanco level noted prognosis continues to be poor continue to monitor wbc cc time 40
--- NOTE | 2017-05-10 12:02 | PN ---
Progress Note, Physician - Current Medication List Current Medications: Active Medications Acetaminophen (Tylenol Oral Solution -) 650 mg PO Q6H PRN PRN Reason: FEVER Last Admin: 05/09/17 13:09 Dose: 650 mg Amiodarone HCl (Cordarone -) 200 mg NGT BID [facility] Last Admin: 05/10/17 09:52 Dose: 200 mg Chlorhexidine Gluconate (Peridex -) 15 ml MM BID [facility] Last Admin: 05/10/17 09:53 Dose: 15 ml Vancomycin HCl 1,000 mg/ (Dextrose) 250 mls @ 250 mls/hr IVPB Q48H SHANDA PRN Reason: Protocol Last Admin: 05/08/17 21:25 Dose: 250 mls/hr Meropenem (Merrem (Restricted To Id) -) 500 mg in 10 mls @ 120 mls/hr IVPUSH BID [facility] Last Admin: 05/10/17 09:52 Dose: 120 mls/hr Norepinephrine Bitartrate 8, (000 mcg/ Dextrose) 500 mls @ 6.88 mls/hr IV ASDIR SHANDA; 0.03 MCG/KG/MIN PRN Reason: Protocol Last Admin: 05/09/17 17:04 Dose: 0.28 mcg/kg/min, 65 mls/hr Fentanyl 500 mcg/ Sodium (Chloride) 100 mls @ 0 mls/hr IVPB TITR SHANDA; Titrate PRN Reason: Protocol Last Admin: 05/10/17 08:00 Dose: 10 mls/hr Insulin Aspart (Novolog Vial Sliding Scale -) 1 vial SQ ACHS SHANDA PRN Reason: Protocol Last Admin: 05/10/17 11:09 Dose: 4 units Mupirocin (Bactroban Ointment (For Decolonization) -) 1 applic NS BID [facility] Stop: 05/11/17 12:59 Last Admin: 05/10/17 09:52 Dose: 1 applic Oseltamivir Phosphate (Tamiflu -) 30 mg PO DAILY [facility] Stop: 05/11/17 13:29 Last Admin: 05/10/17 09:53 Dose: 30 mg Pantoprazole Sodium (Protonix Iv) 40 mg IVPUSH BID [facility] Last Admin: 05/10/17 09:53 Dose: 40 mg - Objective Vital Signs: Vital Signs Temperature 99.3 F 05/10/17 10:18 Pulse Rate 85 05/10/17 10:18 Respiratory Rate 16 05/10/17 11:38 Blood Pressure 104/45 05/10/17 10:18 O2 Sat by Pulse Oximetry (%) 100 05/10/17 08:50 Cardiovascular: Yes: S1, S2 Respiratory: Yes: Mechanically Ventilated Gastrointestinal: Yes: Normal Bowel Sounds, Soft Labs: CBC, BMP 05/10/17 06:10 05/10/17 06:10 INR, PTT INR 1.62 (0.82-1.09) H 05/09/17 05:13 Problem List - Problems (1) Respiratory failure Code(s): J96.90 - RESPIRATORY FAILURE, UNSP, UNSP W HYPOXIA OR HYPERCAPNIA Qualifiers: Chronicity: acute Respiratory failure complication: hypoxia Qualified Code(s): J96.01 - Acute respiratory failure with hypoxia (2) Sepsis Code(s): A41.9 - SEPSIS, UNSPECIFIED ORGANISM Qualifiers: Sepsis type: sepsis due to unspecified organism Qualified Code(s): A41.9 - Sepsis, unspecified organism (3) REBEKA (acute kidney injury) Code(s): N17.9 - ACUTE KIDNEY FAILURE, UNSPECIFIED (4) Anemia Code(s): D64.9 - ANEMIA, UNSPECIFIED Qualifiers: Other causes of anemia: chronic disease, other (5) Subdural hematoma Code(s): I62.00 - NONTRAUMATIC SUBDURAL HEMORRHAGE, UNSPECIFIED (6) Influenza Code(s): J11.1 - FLU DUE TO UNIDENTIFIED INFLUENZA VIRUS W OTH RESP MANIFEST Assessment/Plan - Problems (1) Sepsis Assessment/Plan: septic shock on pressors respiratory failure intubated and sedated lactic acid trending down hemodynamic support with Norepinephrine tamiflu,for influenza A meropenem leukocytosis - ID On board Microbiology 05/05/17 22:20 Blood Culture - Preliminary Blood - Peripheral Venous NO GROWTH OBTAINED AFTER 96 HOURS, INCUBATION TO CONTINUE FOR 1 DAYS. 05/05/17 22:20 Blood Culture - Preliminary Blood - Peripheral Venous NO GROWTH OBTAINED AFTER 96 HOURS, INCUBATION TO CONTINUE FOR 1 DAYS. Code(s): A41.9 - SEPSIS, UNSPECIFIED ORGANISM (2) REBEKA (acute kidney injury) Assessment/Plan: on presors will monitor creatinine- trending down now 1.7 from 2.0 hold ACEI renal sono noted Code(s): N17.9 - ACUTE KIDNEY FAILURE, UNSPECIFIED (3) Anemia Assessment/Plan: iron panel gi evaluation noted ppi iv s/p 3 units of prbc maintain H/h > 8 guaicic negative Code(s): D64.9 - ANEMIA, UNSPECIFIED Qualifiers: Other causes of anemia: chronic disease, other (4) Respiratory failure Assessment/Plan: intubated and sedated Code(s): J96.90 - RESPIRATORY FAILURE, UNSP, UNSP W HYPOXIA OR HYPERCAPNIA Qualifiers: Chronicity: acute Respiratory failure complication: hypoxia Qualified Code(s): J96.01 - Acute respiratory failure with hypoxia (5) Subdural hematoma Assessment/Plan: NS ON CASE NO SURGICAL INTERVENTION AT THIS TIME F/U CT WHEN PT STABLE Code(s): I62.00 - NONTRAUMATIC SUBDURAL HEMORRHAGE, UNSPECIFIED (6) Influenza Assessment/Plan: ON TAMIFLU Code(s): J11.1 - FLU DUE TO UNIDENTIFIED INFLUENZA VIRUS W OTH RESP MANIFEST
--- NOTE | 2017-05-10 12:42 | PN ---
Progress Note, Physician Chief Complaint: Events noted Remains intubated on mechanical ventilator Atrial fibrillation Sedated History of Present Illness: Patient was seen and examined in ICU. Sedated on vent. Chart was reviewed Currently on Levophed - Current Medication List Current Medications: Active Medications Acetaminophen (Tylenol Oral Solution -) 650 mg PO Q6H PRN PRN Reason: FEVER Last Admin: 05/09/17 13:09 Dose: 650 mg Amiodarone HCl (Cordarone -) 200 mg NGT BID [facility] Last Admin: 05/10/17 09:52 Dose: 200 mg Chlorhexidine Gluconate (Peridex -) 15 ml MM BID [facility] Last Admin: 05/10/17 09:53 Dose: 15 ml Vancomycin HCl 1,000 mg/ (Dextrose) 250 mls @ 250 mls/hr IVPB Q48H SHANDA PRN Reason: Protocol Last Admin: 05/08/17 21:25 Dose: 250 mls/hr Meropenem (Merrem (Restricted To Id) -) 500 mg in 10 mls @ 120 mls/hr IVPUSH BID [facility] Last Admin: 05/10/17 09:52 Dose: 120 mls/hr Norepinephrine Bitartrate 8, (000 mcg/ Dextrose) 500 mls @ 6.88 mls/hr IV ASDIR SHANDA; 0.03 MCG/KG/MIN PRN Reason: Protocol Last Admin: 05/10/17 11:45 Dose: Not Given Fentanyl 500 mcg/ Sodium (Chloride) 100 mls @ 0 mls/hr IVPB TITR SHANDA; Titrate PRN Reason: Protocol Last Admin: 05/10/17 08:00 Dose: 10 mls/hr Insulin Aspart (Novolog Vial Sliding Scale -) 1 vial SQ ACHS [facility] PRN Reason: Protocol Last Admin: 05/10/17 11:09 Dose: 4 units Mupirocin (Bactroban Ointment (For Decolonization) -) 1 applic NS BID [facility] Stop: 05/11/17 12:59 Last Admin: 05/10/17 09:52 Dose: 1 applic Oseltamivir Phosphate (Tamiflu Oral Suspension -) 75 mg PO BID [facility] Stop: 05/15/17 11:59 Pantoprazole Sodium (Protonix Iv) 40 mg IVPUSH BID [facility] Last Admin: 05/10/17 09:53 Dose: 40 mg - Objective Vital Signs: Vital Signs Temperature 99.1 F 05/10/17 12:00 Pulse Rate 81 05/10/17 12:00 Respiratory Rate 18 05/10/17 12:00 Blood Pressure 107/58 05/10/17 12:00 O2 Sat by Pulse Oximetry (%) 100 05/10/17 08:50 Cardiovascular: Yes: Pulse Irregular, S1, S2 Respiratory: Yes: Intubated, Mechanically Ventilated, Rhonchi Gastrointestinal: Yes: Normal Bowel Sounds, Soft. No: Tenderness Edema: No Labs: CBC, BMP 05/10/17 06:10 05/10/17 06:10 INR, PTT INR 1.62 (0.82-1.09) H 05/09/17 05:13 Problem List - Problems (1) [id number] kidney injury Code(s): N17.9 - ACUTE KIDNEY FAILURE, UNSPECIFIED; N18.9 - CHRONIC KIDNEY DISEASE, UNSPECIFIED Qualifiers: Chronic kidney disease stage: stage 3 (moderate) (2) Influenza Code(s): J11.1 - FLU DUE TO UNIDENTIFIED INFLUENZA VIRUS W OTH RESP MANIFEST (3) Persistent atrial fibrillation with rapid ventricular response Code(s): I48.1 - PERSISTENT ATRIAL FIBRILLATION (4) Pneumonia Code(s): J18.9 - PNEUMONIA, UNSPECIFIED ORGANISM Qualifiers: Pneumonia type: due to unspecified organism Laterality: left Lung location: lower lobe of lung Qualified Code(s): J18.1 - Lobar pneumonia, unspecified organism (5) Respiratory failure Code(s): J96.90 - RESPIRATORY FAILURE, UNSP, UNSP W HYPOXIA OR HYPERCAPNIA Qualifiers: Chronicity: acute Respiratory failure complication: hypoxia Qualified Code(s): J96.01 - Acute respiratory failure with hypoxia (6) Sepsis Code(s): A41.9 - SEPSIS, UNSPECIFIED ORGANISM Qualifiers: Sepsis type: sepsis due to unspecified organism Qualified Code(s): A41.9 - Sepsis, unspecified organism (7) Subdural hematoma Code(s): I62.00 - NONTRAUMATIC SUBDURAL HEMORRHAGE, UNSPECIFIED (8) Dementia Code(s): F03.90 - UNSPECIFIED DEMENTIA WITHOUT BEHAVIORAL DISTURBANCE Qualifiers: Dementia type: Alzheimer's disease Dementia behavioral disturbance: with behavioral disturbance (9) Metabolic encephalopathy Code(s): G93.41 - METABOLIC ENCEPHALOPATHY Assessment/Plan 1. Acute hypoxic respiratory failure, Influenza A, pneumonia and septic shock with lactic acidosis 2. Persistent atrial fibrillation [id number] not on anticoagulation due to history of SDH 2. CAD with evidence of demand ischemic injury, angina pectoris 3. Diastolic LV dysfunction with class 0-I NYHA classification LV failure 4. Profound anemia, source to be determined, post transfusion 5. Acute on chronic kidney disease improving 6. Hyperglycemia/DM 7. History of HTN, currently hypotensive/septic shock 8. Hyperkalemia resolved 9. Chronic SDH PLAN: 1. Antibiotics and Tamiflu 2. Pressors (Levophed) to maintain MAP > 65 and attempt to wean off as tolerated 3. Monitor Hgb and transfuse as needed maintaining Hgb equal or > 8.0 4. Vent support per critical care team Further plans are to follow Sidney Graf MD
[2017-05-10] MEDS ORDERED: PT OWN MED DRAWER 7, Y5N ONE ×2 (13:10→14:19)
[2017-05-10] MEDS: OSELTAMIVIR PHOSPHATE 6 MG/1 ML - 60ML BOTTLE PO SCH ×2 (13:58→22:20)
[2017-05-10] MEDS ORDERED: NOREPINEPHRINE BITARTRATE 4 MG/4 ML ML IV ONE (21:35)
[2017-05-10] MEDS: VANCOMYCIN 1,000 MG in DEXTROSE 5%-WATER - 250 ML IVPB SCH (22:21)
[2017-05-11] MEDS: INSULIN SLIDING SCALE (NOVOLOG) 1 VIAL SQ SCH ×4 (06:26→22:52)
[2017-05-11 06:38] LABS: BASO % 0.1 % (0-2.0); EOS % 0.6 % (0-4.5); HEMATOCRIT 26.4 % (35.4-49); HEMOGLOBIN 8.6 GM/dL (11.7-16.9); LYMPH % 1.4 % (8-40); MCH 30.7 pg (25.7-33.7); MCHC 32.4 g/dl (32.0-35.9); MEAN CELL VOLUME 94.8 fl (80-96); MEAN PLT VOLUME 8.1 fl (7.5-11.1); MONO % 8.8 % (3.8-10.2); NEUT % 89.1 % (42.8-82.8); PLATELET COUNT 201 K/MM3 (134-434); RBC 2.79 M/mm3 (4.00-5.60); RDW 17.8 % (11.9-15.9); WHITE BLOOD COUNT 16.4 K/mm3 (4.0-10.0)
[2017-05-11 07:12] LABS: CHLORIDE 99 mmol/L (98-107); POTASSIUM 5.3 mmol/L (3.5-5.1); SODIUM 131 mmol/L (136-145)
[2017-05-11 07:26] LABS: ALBUMIN 1.3 g/dl (3.4-5.0); ALK PHOS 349 U/L (45-117); ANION GAP 9 (8-16); BILIRUBIN,TOTAL 0.8 mg/dL (0.2-1.0); BLOOD UREA NITROGEN 35 mg/dL (7-18); CALCIUM 7.3 mg/dL (8.5-10.1); CO2 23 mmol/L (21-32); CREATININE 1.1 mg/dL (0.7-1.3); SGOT/AST 31 U/L (15-37); SGPT/ALT 15 U/L (12-78)
[2017-05-11 07:46] LABS: GLUCOSE,RANDOM 325 mg/dL (74-106)
[2017-05-11] MEDS ORDERED: PT OWN MED DRAWER 7, Y5N ONE ×2 (08:47→22:17)
[2017-05-11] MEDS: MEROPENEM 500 MG PUSH 500 MG/10 ML DISP.SYRIN IVPUSH SCH ×2 (09:04→22:26)
[2017-05-11] MEDS: MUPIROCIN 2% TOPICAL OINTMENT FOR DECOLONIZATION NS SCH (09:04)
[2017-05-11] MEDS: PANTOPRAZOLE SODIUM 40 MG VIAL IVPUSH SCH ×2 (09:05→21:39)
[2017-05-11] MEDS: CHLORHEXIDINE GLUCONATE 0.12% 15ML CUP MM SCH ×2 (09:05→21:39)
[2017-05-11] MEDS: AMIODARONE HCL 200 MG TABLET (FP) NGT SCH ×2 (09:05→21:39)
[2017-05-11] MEDS: ACETAMINOPHEN 650 MG/20.3 ML ORAL SOLUTION (CUPS) PO PRN ×2 (09:06→22:27)
[2017-05-11] MEDS ORDERED: DIGOXIN 0.5 MG/2 ML AMPUL IVPUSH ONE ×2 (09:40→14:00)
--- NOTE | 2017-05-11 09:43 | PN ---
Progress Note, Physician History of Present Illness: rapid afib - Current Medication List Current Medications: Active Medications Acetaminophen (Tylenol Oral Solution -) 650 mg PO Q6H PRN PRN Reason: FEVER Last Admin: 05/11/17 09:06 Dose: 650 mg Amiodarone HCl (Cordarone -) 200 mg NGT BID [facility] Last Admin: 05/11/17 09:05 Dose: 200 mg Chlorhexidine Gluconate (Peridex -) 15 ml MM BID [facility] Last Admin: 05/11/17 09:05 Dose: 15 ml Digoxin (Lanoxin Injection -) 0.25 mg IVPUSH ONCE ONE Stop: 05/11/17 09:41 Vancomycin HCl 1,000 mg/ (Dextrose) 250 mls @ 250 mls/hr IVPB Q48H SHANDA PRN Reason: Protocol Last Admin: 05/10/17 22:21 Dose: 250 mls/hr Meropenem (Merrem (Restricted To Id) -) 500 mg in 10 mls @ 120 mls/hr IVPUSH BID [facility] Last Admin: 05/11/17 09:04 Dose: 120 mls/hr Norepinephrine Bitartrate 8, (000 mcg/ Dextrose) 500 mls @ 6.88 mls/hr IV ASDIR SHANDA; 0.03 MCG/KG/MIN PRN Reason: Protocol Last Admin: 05/10/17 11:45 Dose: Not Given Fentanyl 500 mcg/ Sodium (Chloride) 100 mls @ 0 mls/hr IVPB TITR SHANDA; Titrate PRN Reason: Protocol Last Admin: 05/10/17 22:17 Dose: Not Given Insulin Aspart (Novolog Vial Sliding Scale -) 1 vial SQ ACHS SHANDA PRN Reason: Protocol Last Admin: 05/11/17 06:26 Dose: 6 units Mupirocin (Bactroban Ointment (For Decolonization) -) 1 applic NS BID [facility] Stop: 05/11/17 12:59 Last Admin: 05/11/17 09:04 Dose: 1 applic Oseltamivir Phosphate (Tamiflu -) 75 mg NGT BID [facility] Stop: 05/14/17 22:01 Pantoprazole Sodium (Protonix Iv) 40 mg IVPUSH BID [facility] Last Admin: 05/11/17 09:05 Dose: 40 mg - Objective Vital Signs: Vital Signs Temperature 100.1 F H 05/11/17 08:00 Pulse Rate 120 H 05/11/17 09:08 Respiratory Rate 20 05/11/17 09:08 Blood Pressure 144/84 05/11/17 08:00 O2 Sat by Pulse Oximetry (%) 98 05/11/17 09:08 Cardiovascular: Yes: Tachycardia, S1, S2 Respiratory: Yes: Mechanically Ventilated Gastrointestinal: Yes: Normal Bowel Sounds, Soft Labs: CBC, BMP 05/11/17 06:15 05/11/17 06:15 INR, PTT INR 1.62 (0.82-1.09) H 05/09/17 05:13 Problem List - Problems (1) Respiratory failure Code(s): J96.90 - RESPIRATORY FAILURE, UNSP, UNSP W HYPOXIA OR HYPERCAPNIA Qualifiers: Chronicity: acute Respiratory failure complication: hypoxia Qualified Code(s): J96.01 - Acute respiratory failure with hypoxia (2) Sepsis Code(s): A41.9 - SEPSIS, UNSPECIFIED ORGANISM Qualifiers: Sepsis type: sepsis due to unspecified organism Qualified Code(s): A41.9 - Sepsis, unspecified organism (3) REBEKA (acute kidney injury) Code(s): N17.9 - ACUTE KIDNEY FAILURE, UNSPECIFIED (4) Anemia Code(s): D64.9 - ANEMIA, UNSPECIFIED Qualifiers: Other causes of anemia: chronic disease, other (5) Subdural hematoma Code(s): I62.00 - NONTRAUMATIC SUBDURAL HEMORRHAGE, UNSPECIFIED (6) Influenza Code(s): J11.1 - FLU DUE TO UNIDENTIFIED INFLUENZA VIRUS W OTH RESP MANIFEST Assessment/Plan - Problems (1) Sepsis Assessment/Plan: septic shock on pressors respiratory failure intubated and sedated lactic acid trending down hemodynamic support with Norepinephrine tamiflu,for influenza A meropenem leukocytosis - ID On board Microbiology 05/05/17 22:20 Blood Culture - Preliminary Blood - Peripheral Venous NO GROWTH OBTAINED AFTER 96 HOURS, INCUBATION TO CONTINUE FOR 1 DAYS. 05/05/17 22:20 Blood Culture - Preliminary Blood - Peripheral Venous NO GROWTH OBTAINED AFTER 96 HOURS, INCUBATION TO CONTINUE FOR 1 DAYS. Code(s): A41.9 - SEPSIS, UNSPECIFIED ORGANISM (2) REBEKA (acute kidney injury) Assessment/Plan: on presors will monitor creatinine- trending down now 1.7 from 2.0 hold ACEI renal sono noted Code(s): N17.9 - ACUTE KIDNEY FAILURE, UNSPECIFIED (3) Anemia Assessment/Plan: iron panel gi evaluation noted ppi iv s/p 3 units of prbc maintain H/h > 8 guaicic negative Code(s): D64.9 - ANEMIA, UNSPECIFIED Qualifiers: Other causes of anemia: chronic disease, other (4) Respiratory failure Assessment/Plan: intubated and sedated Code(s): J96.90 - RESPIRATORY FAILURE, UNSP, UNSP W HYPOXIA OR HYPERCAPNIA Qualifiers: Chronicity: acute Respiratory failure complication: hypoxia Qualified Code(s): J96.01 - Acute respiratory failure with hypoxia (5) Subdural hematoma Assessment/Plan: NS ON CASE NO SURGICAL INTERVENTION AT THIS TIME F/U CT WHEN PT STABLE Code(s): I62.00 - NONTRAUMATIC SUBDURAL HEMORRHAGE, UNSPECIFIED (6) Influenza Assessment/Plan: ON TAMIFLU Code(s): J11.1 - FLU DUE TO UNIDENTIFIED INFLUENZA VIRUS W OTH RESP MANIFEST (7) A-fib Assessment/Plan: dig ekg
[2017-05-11] MEDS ORDERED: METOPROLOL TARTRATE 5 MG/5 ML VIAL IVPUSH PRN (09:58)
[2017-05-11] MEDS ORDERED: OSELTAMIVIR PHOSPHATE 75 MG CAPSULE NGT SCH ×2 (10:00→22:00)
[2017-05-11] MEDS ORDERED: fentaNYL CITRATE 250 MCG/5 ML VIAL ONE ×3 (10:11→22:16)
[2017-05-11] MEDS: NOREPINEPHRINE BITARTRATE 8,000 MCG in DEXTROSE 5%-WATER - 492 ML IV SCH ×2 (11:45→17:05)
--- NOTE | 2017-05-11 12:18 | PN ---
Progress Note (short form) - Note Progress Note: RENAL Pt is intubated and sedated not responsive ISOLATED for influenza Last Vital Signs Temp Pulse Resp BP Pulse Ox 99.2 F 85 16 100/52 98 05/11/17 12:00 05/11/17 12:00 05/11/17 12:00 05/11/17 12:00 05/11/17 09:08 lungs bilat air entry, rhonchi cvs s1s2 rr abd soft ext +edema neuro sedated CBC, BMP 05/11/17 06:15 05/11/17 06:15 Current Medications Generic Name Dose Route Start Last Admin Trade Name Freq PRN Reason Stop Dose Admin Acetaminophen 650 mg 05/06/17 17:00 05/11/17 09:06 Tylenol Oral Solution - PO 650 mg Q6H PRN Administration FEVER Amiodarone HCl 200 mg 05/09/17 22:00 05/11/17 09:05 Cordarone - NGT 200 mg BID SHANDA Administration Chlorhexidine Gluconate 15 ml 05/07/17 22:00 05/11/17 09:05 Peridex - MM 15 ml BID SHANDA Administration Digoxin 0.5 mg 05/11/17 14:00 Lanoxin Injection - IVPUSH 05/11/17 14:01 ONCE ONE Vancomycin HCl 1,000 mg/ 250 mls @ 250 mls/hr 05/06/17 22:00 05/10/17 22:21 Dextrose IVPB 250 mls/hr Q48H SHANDA Administration Protocol Meropenem 500 mg in 10 mls @ 120 mls/hr 05/06/17 14:45 05/11/17 09:04 Merrem (Restricted To Id) - IVPUSH 120 mls/hr BID SHANDA Administration Norepinephrine Bitartrate 8, 500 mls @ 6.88 mls/hr 05/07/17 11:45 05/10/17 11 :45 000 mcg/ Dextrose IV Not Given ASDIR SHANDA Protocol 0.03 MCG/KG/MIN Fentanyl 500 mcg/ Sodium 100 mls @ 0 mls/hr 05/08/17 20:30 05/10/17 22:17 Chloride IVPB Not Given TITR SHANDA Protocol Titrate Insulin Aspart 1 vial 05/06/17 16:30 05/11/17 10:37 Novolog Vial Sliding Scale - SQ 4 units ACHS SHANDA Administration Protocol Metoprolol Tartrate 5 mg 05/11/17 09:58 Lopressor Injection - IVPUSH Q4H PRN HYPERTENSION Mupirocin 1 applic 05/06/17 13:00 05/11/17 09:04 Bactroban Ointment (For Decolonization) - NS 05/11/17 12:59 1 applic BID SHANDA Administration Oseltamivir Phosphate 75 mg 05/11/17 10:00 Tamiflu - NGT 05/14/17 22:01 BID SHANDA Pantoprazole Sodium 40 mg 05/07/17 22:00 05/11/17 09:05 Protonix Iv IVPUSH 40 mg BID SHANDA Administration Impression 1. REBEKA improved- likely from sepsis and prerenal disease causing ATN 2. hip fracture 3. htn 4. dementia 5. anemia 6. hypomagnesemia 7. iron deficiency 8. hyperkalemia- he is on metoprolol and digoxin which can cause this. ? constipation /urine retention also hyperglycemia 9. respiratory failure requiring intubation 10. sepsis Plan -continue vent support -agree with higher dose of tamiflu - control glucose -no recorded BM since 05/07- would give a laxative, mom or lactulose MV MV
[2017-05-11] MEDS ORDERED: MAGNESIUM HYDROX 2400MG/30ML ORAL SUSPENSION 30 ML CUP NGT ONE (12:24)
[2017-05-11] MEDS: FENTANYL INJECTION 500 MCG in SODIUM CHLORIDE 90 ML IVPB SCH ×3 (12:30→21:39)
--- NOTE | 2017-05-11 15:48 | PN ---
Progress Note, Physician History of Present Illness: continues to be intubated and sedated pressors spiking fevers - Current Medication List Current Medications: Active Medications Acetaminophen (Tylenol Oral Solution -) 650 mg PO Q6H PRN PRN Reason: FEVER Last Admin: 05/11/17 09:06 Dose: 650 mg Amiodarone HCl (Cordarone -) 200 mg NGT BID [facility] Last Admin: 05/11/17 09:05 Dose: 200 mg Chlorhexidine Gluconate (Peridex -) 15 ml MM BID [facility] Last Admin: 05/11/17 09:05 Dose: 15 ml Vancomycin HCl 1,000 mg/ (Dextrose) 250 mls @ 250 mls/hr IVPB Q48H SHANDA PRN Reason: Protocol Last Admin: 05/10/17 22:21 Dose: 250 mls/hr Meropenem (Merrem (Restricted To Id) -) 500 mg in 10 mls @ 120 mls/hr IVPUSH BID [facility] Last Admin: 05/11/17 09:04 Dose: 120 mls/hr Norepinephrine Bitartrate 8, (000 mcg/ Dextrose) 500 mls @ 6.88 mls/hr IV ASDIR SHANDA; 0.03 MCG/KG/MIN PRN Reason: Protocol Last Admin: 05/11/17 11:45 Dose: Not Given Fentanyl 500 mcg/ Sodium (Chloride) 100 mls @ 0 mls/hr IVPB TITR SHANDA; Titrate PRN Reason: Protocol Last Admin: 05/11/17 12:30 Dose: 10 mls/hr Insulin Aspart (Novolog Vial Sliding Scale -) 1 vial SQ ACHS SHANDA PRN Reason: Protocol Last Admin: 05/11/17 10:37 Dose: 4 units Metoprolol Tartrate (Lopressor Injection -) 5 mg IVPUSH Q4H PRN PRN Reason: HYPERTENSION Oseltamivir Phosphate (Tamiflu -) 75 mg NGT BID [facility] Stop: 05/14/17 22:01 Pantoprazole Sodium (Protonix Iv) 40 mg IVPUSH BID [facility] Last Admin: 05/11/17 09:05 Dose: 40 mg - Objective Vital Signs: Vital Signs Temperature 99.0 F 05/11/17 14:00 Pulse Rate 114 H 05/11/17 14:16 Respiratory Rate 16 05/11/17 15:16 Blood Pressure 121/52 05/11/17 14:00 O2 Sat by Pulse Oximetry (%) 98 05/11/17 09:08 Constitutional: Yes: Other Cardiovascular: Yes: Regular Rate and Rhythm Respiratory: Yes: Intubated, Mechanically Ventilated Gastrointestinal: Yes: Normal Bowel Sounds, Soft Musculoskeletal: Yes: WNL Extremities: Yes: WNL Neurological: Yes: Other Labs: CBC, BMP 05/11/17 06:15 INR, PTT INR 1.62 (0.82-1.09) H 05/09/17 05:13 - ....Imaging Chest X-ray: Report Reviewed, Image Reviewed Assessment/Plan Problem List - Problems (1) Sepsis Code(s): A41.9 - SEPSIS, UNSPECIFIED ORGANISM (2) REBEKA (acute kidney injury) Code(s): N17.9 - ACUTE KIDNEY FAILURE, UNSPECIFIED (3) Anemia Code(s): D64.9 - ANEMIA, UNSPECIFIED Qualifiers: Other causes of anemia: chronic disease, other (4) Respiratory failure Code(s): J96.90 - RESPIRATORY FAILURE, UNSP, UNSP W HYPOXIA OR HYPERCAPNIA wound infection influenza a afib with rapid rvr leukocytosis wbc high plan stopped vanco continue as per icu patient with fever await for recx report prognosis continues to be poor continue to monitor wbc cc time 40
[2017-05-11 16:00] LABS: ANION GAP 5 (8-16); BLOOD UREA NITROGEN 33 mg/dL (7-18); CALCIUM 7.5 mg/dL (8.5-10.1); CHLORIDE 101 mmol/L (98-107); CO2 26 mmol/L (21-32); GLUCOSE,RANDOM 124 mg/dL (74-106); SODIUM 132 mmol/L (136-145)
[2017-05-11 16:03] LABS: POTASSIUM 5.7 mmol/L (3.5-5.1)
--- NOTE | 2017-05-11 16:07 | PROC ---
Procedure Note Procedure: PULM/CCM Pt Seen & Examined in the ICU, events noted, remains on NE @ 10, sedated & intubated on mechanical ventilator. Active Medications Acetaminophen (Tylenol Oral Solution -) 650 mg PO Q6H PRN PRN Reason: FEVER Last Admin: 05/11/17 09:06 Dose: 650 mg Amiodarone HCl (Cordarone -) 200 mg NGT BID [facility] Last Admin: 05/11/17 09:05 Dose: 200 mg Chlorhexidine Gluconate (Peridex -) 15 ml MM BID [facility] Last Admin: 05/11/17 09:05 Dose: 15 ml Vancomycin HCl 1,000 mg/ (Dextrose) 250 mls @ 250 mls/hr IVPB Q48H SHANDA PRN Reason: Protocol Last Admin: 05/10/17 22:21 Dose: 250 mls/hr Meropenem (Merrem (Restricted To Id) -) 500 mg in 10 mls @ 120 mls/hr IVPUSH BID [facility] Last Admin: 05/11/17 09:04 Dose: 120 mls/hr Norepinephrine Bitartrate 8, (000 mcg/ Dextrose) 500 mls @ 6.88 mls/hr IV ASDIR SHANDA; 0.03 MCG/KG/MIN PRN Reason: Protocol Last Admin: 05/11/17 11:45 Dose: Not Given Fentanyl 500 mcg/ Sodium (Chloride) 100 mls @ 0 mls/hr IVPB TITR SHANDA; Titrate PRN Reason: Protocol Last Admin: 05/11/17 12:30 Dose: 10 mls/hr Insulin Aspart (Novolog Vial Sliding Scale -) 1 vial SQ ACHS SHANDA PRN Reason: Protocol Last Admin: 05/11/17 10:37 Dose: 4 units Metoprolol Tartrate (Lopressor Injection -) 5 mg IVPUSH Q4H PRN PRN Reason: HYPERTENSION Oseltamivir Phosphate (Tamiflu -) 75 mg NGT BID [facility] Stop: 05/14/17 22:01 Pantoprazole Sodium (Protonix Iv) 40 mg IVPUSH BID [facility] Last Admin: 05/11/17 09:05 Dose: 40 mg Vital Signs Period Temp Pulse Resp BP Sys/[place] Pulse Ox Last 24 Hr 99.0 F-100.1 F 85-137 14-36 98-144/52-90 96-100 Intake & Output 01/05/09/17 05/10/17 05/11/17 23:59 23:59 23:59 23:59 Intake Total 3320 1989 3315.6 1870 Output Total 2200 2150 850 700 Balance 1120 -160 2465.6 1170 Weight 63.503 kg 64.047 kg 65.4 kg 65.816 kg GEN: Elderly, frail man, sedated, intubated HEENT: PERRL, an-icteric, + cough/gag to deep suction PULM: CTAB CV: nml S1 S2, RR, tachy, no m/r/g appreciated ABD: + BS S/S N/T N/DX4Q EXT: + Pulses, WWPX4, (-) edema NEURO: Sedated on the Vent CBC, BMP 05/11/17 06:15 05/11/17 15:00 Microbiology 05/05/17 22:20 Blood - Peripheral Venous Blood Culture - Final NO GROWTH AFTER 5 DAYS INCUBATION 05/05/17 22:20 Blood - Peripheral Venous Blood Culture - Final NO GROWTH AFTER 5 DAYS INCUBATION 05/06/17 02:18 Urine - Urine - Catheterized Urine Culture - Final NO GROWTH OBTAINED 05/05/17 22:00 Nasopharyngeal Swab Influenza Types A,B Antigen (MAGDA) - Final 05/05/17 22:00 Nasopharyngeal Swab - Final RECENT STUDIES TO NOTE: CXR 05/11: Since 05/10/2017 at 0743 hours, the endotracheal tube, nasogastric tube and right line persists. The congestive and infiltrative changes have increased somewhat. Impression // slight increase in bilateral pulmonary and pleural findings ASSESS: Acute Hypoxic Respiratory Failure Influenza A Pneumonia Septic Shock Acute Kidney Injury Lactic Acidosis Anemia s/p PRBC transfusions Subdural Hematoma HTN Dementia Recent R Hip Fracture s/p surgery PLAN: - antibiotics, tamiflu per ID - IVF to keep CVP 8-12 - Wean pressors as tolerated - monitor urine output, creatinine - AC being held - PPI - monitor H/H - Sedation vacations to assess mental status - spontaneous breathing trials as tolerated when mental status improves - enteral feeds - DVT/GI prophylaxis - continue ICU monitoring DGL, ACNP-[facility] ICU [id number] PULM/CCM
--- NOTE | 2017-05-11 16:13 | PN ---
Progress Note (short form) - Note Progress Note: PULM/CCM Pt Seen & Examined in the ICU, events noted, remains on NE @ 10, Hgb stable, sedated & intubated on mechanical ventilator. Active Medications Acetaminophen (Tylenol Oral Solution -) 650 mg PO Q6H PRN PRN Reason: FEVER Last Admin: 05/11/17 09:06 Dose: 650 mg Amiodarone HCl (Cordarone -) 200 mg NGT BID [facility] Last Admin: 05/11/17 09:05 Dose: 200 mg Chlorhexidine Gluconate (Peridex -) 15 ml MM BID [facility] Last Admin: 05/11/17 09:05 Dose: 15 ml Vancomycin HCl 1,000 mg/ (Dextrose) 250 mls @ 250 mls/hr IVPB Q48H SHANDA PRN Reason: Protocol Last Admin: 05/10/17 22:21 Dose: 250 mls/hr Meropenem (Merrem (Restricted To Id) -) 500 mg in 10 mls @ 120 mls/hr IVPUSH BID [facility] Last Admin: 05/11/17 09:04 Dose: 120 mls/hr Norepinephrine Bitartrate 8, (000 mcg/ Dextrose) 500 mls @ 6.88 mls/hr IV ASDIR SHANDA; 0.03 MCG/KG/MIN PRN Reason: Protocol Last Admin: 05/11/17 11:45 Dose: Not Given Fentanyl 500 mcg/ Sodium (Chloride) 100 mls @ 0 mls/hr IVPB TITR SHANDA; Titrate PRN Reason: Protocol Last Admin: 05/11/17 12:30 Dose: 10 mls/hr Insulin Aspart (Novolog Vial Sliding Scale -) 1 vial SQ ACHS SHANDA PRN Reason: Protocol Last Admin: 05/11/17 10:37 Dose: 4 units Metoprolol Tartrate (Lopressor Injection -) 5 mg IVPUSH Q4H PRN PRN Reason: HYPERTENSION Oseltamivir Phosphate (Tamiflu -) 75 mg NGT BID [facility] Stop: 05/14/17 22:01 Pantoprazole Sodium (Protonix Iv) 40 mg IVPUSH BID [facility] Last Admin: 05/11/17 09:05 Dose: 40 mg Vital Signs Period Temp Pulse Resp BP Sys/[place] Pulse Ox Last 24 Hr 99.0 F-100.1 F 85-137 14-36 98-144/52-90 96-100 Intake & Output 01/25/18 01/26/18 01/27/18 01/28/18 23:59 23:59 23:59 23:59 Intake Total 3320 1989 3315.6 1870 Output Total 2200 2150 850 700 Balance 1120 -160 2465.6 1170 Weight 63.503 kg 64.047 kg 65.4 kg 65.816 kg GEN: Elderly, frail man, sedated, intubated HEENT: PERRL, an-icteric, + cough/gag to deep suction PULM: CTAB CV: nml S1 S2, irreg irreg, no m/r/g appreciated ABD: + BS S/S N/T N/DX4Q EXT: + Pulses, WWPX4, (-) edema NEURO: Sedated on the Vent CBC, BMP 05/11/17 06:15 05/11/17 15:00 Microbiology 05/05/17 22:20 Blood - Peripheral Venous Blood Culture - Final NO GROWTH AFTER 5 DAYS INCUBATION 05/05/17 22:20 Blood - Peripheral Venous Blood Culture - Final NO GROWTH AFTER 5 DAYS INCUBATION 05/06/17 02:18 Urine - Urine - Catheterized Urine Culture - Final NO GROWTH OBTAINED 05/05/17 22:00 Nasopharyngeal Swab Influenza Types A,B Antigen (MAGDA) - Final 05/05/17 22:00 Nasopharyngeal Swab - Final RECENT STUDIES TO NOTE: CXR 05/11: Since 05/10/2017 at 0743 hours, the endotracheal tube, nasogastric tube and right line persists. The congestive and infiltrative changes have increased somewhat. Impression: slight increase in bilateral pulmonary and pleural findings ASSESS: Respiratory Failure Influenza A Pneumonia Septic Shock Acute Kidney Injury Lactic Acidosis Anemia s/p PRBC transfusions Subdural Hematoma HTN Dementia Recent R Hip Fracture s/p surgery PLAN: - antibiotics, tamiflu per ID - Wean pressors as tolerated - monitor urine output, creatinine - AC being held 2/2 Hgb < 5.0 on admit & guiac - monitor H/H - BID PPI - Sedation vacations to assess mental status - spontaneous breathing trials as tolerated when mental status improves - Enteral feeds - DVT/GI prophylaxis - continue ICU monitoring DGL, ACNP-[facility] ICU 4436 PULM/CCM
--- NOTE | 2017-05-11 16:49 | PN ---
Progress Note, Physician Chief Complaint: Events noted Remains intubated on mechanical ventilator Atrial fibrillation - episode of rapid ventricular response - given Digoxin IV Sedated History of Present Illness: Patient was seen and examined in ICU. Sedated on vent. Chart was reviewed Currently on Levophed - Current Medication List Current Medications: Active Medications Acetaminophen (Tylenol Oral Solution -) 650 mg PO Q6H PRN PRN Reason: FEVER Last Admin: 05/11/17 09:06 Dose: 650 mg Amiodarone HCl (Cordarone -) 200 mg NGT BID [facility] Last Admin: 05/11/17 09:05 Dose: 200 mg Chlorhexidine Gluconate (Peridex -) 15 ml MM BID [facility] Last Admin: 05/11/17 09:05 Dose: 15 ml Vancomycin HCl 1,000 mg/ (Dextrose) 250 mls @ 250 mls/hr IVPB Q48H SHANDA PRN Reason: Protocol Last Admin: 05/10/17 22:21 Dose: 250 mls/hr Meropenem (Merrem (Restricted To Id) -) 500 mg in 10 mls @ 120 mls/hr IVPUSH BID [facility] Last Admin: 05/11/17 09:04 Dose: 120 mls/hr Norepinephrine Bitartrate 8, (000 mcg/ Dextrose) 500 mls @ 6.88 mls/hr IV ASDIR SHANDA; 0.03 MCG/KG/MIN PRN Reason: Protocol Last Admin: 05/11/17 11:45 Dose: Not Given Fentanyl 500 mcg/ Sodium (Chloride) 100 mls @ 0 mls/hr IVPB TITR SHANDA; Titrate PRN Reason: Protocol Last Admin: 05/11/17 12:30 Dose: 10 mls/hr Insulin Aspart (Novolog Vial Sliding Scale -) 1 vial SQ ACHS SHANDA PRN Reason: Protocol Last Admin: 05/11/17 10:37 Dose: 4 units Metoprolol Tartrate (Lopressor Injection -) 5 mg IVPUSH Q4H PRN PRN Reason: HYPERTENSION Oseltamivir Phosphate (Tamiflu -) 75 mg NGT BID [facility] Stop: 05/14/17 22:01 Pantoprazole Sodium (Protonix Iv) 40 mg IVPUSH BID [facility] Last Admin: 05/11/17 09:05 Dose: 40 mg - Objective Vital Signs: Vital Signs Temperature 98.9 F 05/11/17 16:00 Pulse Rate 89 05/11/17 16:00 Respiratory Rate 15 05/11/17 16:00 Blood Pressure 99/63 05/11/17 16:00 O2 Sat by Pulse Oximetry (%) 98 05/11/17 09:08 Cardiovascular: Yes: Tachycardia, Pulse Irregular, S1, S2 Respiratory: Yes: Diminished, Intubated, Mechanically Ventilated, Rhonchi Gastrointestinal: Yes: Normal Bowel Sounds, Soft. No: Tenderness Edema: No Labs: CBC, BMP 05/11/17 06:15 05/11/17 15:00 INR, PTT INR 1.62 (0.82-1.09) H 05/09/17 05:13 Problem List - Problems (1) [id number] kidney injury Code(s): N17.9 - ACUTE KIDNEY FAILURE, UNSPECIFIED; N18.9 - CHRONIC KIDNEY DISEASE, UNSPECIFIED Qualifiers: Chronic kidney disease stage: stage 3 (moderate) (2) Influenza Code(s): J11.1 - FLU DUE TO UNIDENTIFIED INFLUENZA VIRUS W OTH RESP MANIFEST (3) Persistent atrial fibrillation with rapid ventricular response Code(s): I48.1 - PERSISTENT ATRIAL FIBRILLATION (4) Pneumonia Code(s): J18.9 - PNEUMONIA, UNSPECIFIED ORGANISM Qualifiers: Pneumonia type: due to unspecified organism Laterality: left Lung location: lower lobe of lung Qualified Code(s): J18.1 - Lobar pneumonia, unspecified organism (5) Respiratory failure Code(s): J96.90 - RESPIRATORY FAILURE, UNSP, UNSP W HYPOXIA OR HYPERCAPNIA Qualifiers: Chronicity: acute Respiratory failure complication: hypoxia Qualified Code(s): J96.01 - Acute respiratory failure with hypoxia (6) Sepsis Code(s): A41.9 - SEPSIS, UNSPECIFIED ORGANISM Qualifiers: Sepsis type: sepsis due to unspecified organism Qualified Code(s): A41.9 - Sepsis, unspecified organism (7) Subdural hematoma Code(s): I62.00 - NONTRAUMATIC SUBDURAL HEMORRHAGE, UNSPECIFIED (8) Dementia Code(s): F03.90 - UNSPECIFIED DEMENTIA WITHOUT BEHAVIORAL DISTURBANCE Qualifiers: Dementia type: Alzheimer's disease Dementia behavioral disturbance: with behavioral disturbance (9) Metabolic encephalopathy Code(s): G93.41 - METABOLIC ENCEPHALOPATHY Assessment/Plan 1. Acute hypoxic respiratory failure, Influenza A, pneumonia and septic shock with lactic acidosis 2. Persistent atrial fibrillation [id number] not on anticoagulation due to history of SDH 2. CAD with evidence of demand ischemic injury, angina pectoris 3. Diastolic LV dysfunction with class 0-I NYHA classification LV failure 4. Profound anemia, source to be determined, post transfusion 5. Acute on chronic kidney disease improving 6. Hyperglycemia/DM 7. History of HTN, currently hypotensive/septic shock 8. Hyperkalemia resolved 9. Chronic SDH PLAN: 1. Antibiotics and Tamiflu 2. Pressors (Levophed) to maintain MAP > 65 and attempt to wean off as tolerated 3. Monitor Hgb and transfuse as needed maintaining Hgb equal or > 8.0 4. Vent support per critical care team 5. Given Digoxin IV one dose earlier. Further rate control with IV beta alessandra as BP tolerates 6. Amiodarone via NGT Further plans are to follow Sidney Graf MD
[2017-05-11] MEDS ORDERED: NOREPINEPHRINE BITARTRATE 4 MG/4 ML ML IV ONE (17:00)
[2017-05-11] MEDS: OSELTAMIVIR PHOSPHATE 30 MG CAPSULE PO SCH (23:00)
[2017-05-12] MEDS ORDERED: HEMOQUE TEST 1 EACH EACH ONE (05:18)
[2017-05-12] MEDS ORDERED: PT OWN MED DRAWER 7, Y5N ONE (06:32)
[2017-05-12] MEDS: INSULIN SLIDING SCALE (NOVOLOG) 1 VIAL SQ SCH ×4 (06:41→22:12)
[2017-05-12 06:58] LABS: ALBUMIN 1.3 g/dl (3.4-5.0); ANION GAP 3 (8-16); BLOOD UREA NITROGEN 35 mg/dL (7-18); CALCIUM 7.1 mg/dL (8.5-10.1); CHLORIDE 103 mmol/L (98-107); CO2 28 mmol/L (21-32); GLUCOSE,RANDOM 227 mg/dL (74-106); POTASSIUM 5.7 mmol/L (3.5-5.1); SGOT/AST 54 U/L (15-37); SGPT/ALT 24 U/L (12-78); SODIUM 134 mmol/L (136-145)
[2017-05-12 07:00] LABS: ALK PHOS 338 U/L (45-117); BILIRUBIN,TOTAL 0.7 mg/dL (0.2-1.0); TOT PROT 4.8 g/dl (6.4-8.2)
--- NOTE | 2017-05-12 07:41 | PN ---
Physical Exam: SUBJECTIVE: Patient seen and examined. Intubated and sedated- RR-16, TV-450, 40% , 5/5. Levophed @ 2mcgSpiked a Temp-101 this am during rounds. OBJECTIVE: Vital Signs Period Temp Pulse Resp BP Sys/[place] Pulse Ox Last 24 Hr 98.2 F-100.1 F 82-137 15-24 99-148/52-84 96-98 Vital Signs Temp 99 F 05/12/17 06:00 Pulse 94 H 05/12/17 06:00 Resp 18 05/12/17 07:10 BP 148/66 05/12/17 06:00 Pulse Ox 98 05/11/17 19:53 Intake & Output 05/09/17 05/10/17 05/11/17 05/12/17 23:59 23:59 23:59 23:59 Intake Total 1989 3315.6 3489.1 1680 Output Total 2150 850 1400 350 Balance -160 2465.6 2089.1 1330 Weight 64.047 kg 65.4 kg 65.816 kg 68.084 kg GENERAL: Intubated and sedated- RR-16, TV-450, 40%, 5/5, good cough reflex. EYES: Round reactive bilaterally ENT: NGT, ETT, dry mucous membranes and tongue. LUNGS: Bilateral fine creps HEART: Regular rate and rhythm, S1, S2 without murmur, rub or gallop. ABDOMEN: normoactive bowel sounds EXTREMITIES:Bilateral UE edema NEUROLOGICAL: Intubated and sedated PSYCH: Cannot assess Lines: RIJ, ETT, NGT, RUE Laboratory Results - last 24 hr 05/09/17 05/11/17 05/11/17 17:17 05:55 06:15 Sodium 131 L Potassium 5.3 H Chloride 99 Carbon Dioxide 23 Anion Gap 9 BUN 35 H Creatinine 1.1 Creat Clearance w eGFR > 60 POC Glucometer 234.92513 334.08412 Random Glucose 325 H* D Calcium 7.3 L Total Bilirubin 0.8 D AST 31 D ALT 15 D Alkaline Phosphatase 349 H D Total Protein 5.0 L Albumin 1.3 L 05/11/17 05/11/17 05/11/17 10:36 15:00 16:49 Sodium 132 L Potassium 5.7 H Chloride 101 Carbon Dioxide 26 Anion Gap 5 L BUN 33 H Creatinine 1.0 Creat Clearance w eGFR POC Glucometer 272.10104 191.20775 Random Glucose 124 H D Calcium 7.5 L Total Bilirubin AST ALT Alkaline Phosphatase Total Protein Albumin 05/11/17 05/12/17 22:48 05:15 Sodium 134 L Potassium 5.7 H Chloride 103 Carbon Dioxide 28 Anion Gap 3 L BUN 35 H Creatinine 1.0 Creat Clearance w eGFR > 60 POC Glucometer [phone] Random Glucose 227 H D Calcium 7.1 L Total Bilirubin 0.7 AST 54 H D ALT 24 D Alkaline Phosphatase 338 H Total Protein 4.8 L Albumin 1.3 L Active Medications Generic Name Dose Route Start Last Admin Trade Name Freq PRN Reason Stop Dose Admin Acetaminophen 650 mg 05/06/17 17:00 05/11/17 22:27 Tylenol Oral Solution - PO 650 mg Q6H PRN Administration FEVER Amiodarone HCl 200 mg 05/09/17 22:00 05/11/17 21:39 Cordarone - NGT 200 mg BID SHANDA Administration Chlorhexidine Gluconate 15 ml 05/07/17 22:00 05/11/17 21:39 Peridex - MM 15 ml BID SHANDA Administration Vancomycin HCl 1,000 mg/ 250 mls @ 250 mls/hr 05/06/17 22:00 05/10/17 22:21 Dextrose IVPB 250 mls/hr Q48H SHANDA Administration Protocol Meropenem 500 mg in 10 mls @ 120 mls/hr 05/06/17 14:45 05/11/17 22:26 Merrem (Restricted To Id) - IVPUSH 120 mls/hr BID SHANDA Administration Norepinephrine Bitartrate 8, 500 mls @ 6.88 mls/hr 05/07/17 11:45 05/11/17 17 :05 000 mcg/ Dextrose IV 0.28 mcg/kg/min ASDIR SHANDA 65 mls/hr Protocol Administration 0.03 MCG/KG/MIN Fentanyl 500 mcg/ Sodium 100 mls @ 0 mls/hr 05/08/17 20:30 05/11/17 21:39 Chloride IVPB Not Given TITR SHANDA Protocol Titrate Insulin Aspart 1 vial 05/06/17 16:30 05/12/17 06:41 Novolog Vial Sliding Scale - SQ 4 units ACHS SHANDA Administration Protocol Metoprolol Tartrate 5 mg 05/11/17 09:58 Lopressor Injection - IVPUSH Q4H PRN HYPERTENSION Oseltamivir Phosphate 30 mg 05/11/17 23:00 05/11/17 23:00 Tamiflu - PO 05/15/17 10:01 30 mg BID SHANDA Administration Pantoprazole Sodium 40 mg 05/07/17 22:00 05/11/17 21:39 Protonix Iv IVPUSH 40 mg BID SHANDA Administration ASSESSMENT/PLAN: 86M with pmhx of dementia, metabolic encephalopathy, sent from [facility] [place] for hypoxia in the 70's Pt was intubated admitted to ICU for acute respiratory failure. ID: Septic shock 2/ to PNA and flu ID-Dr. Garcia Continue Vanc-1g Q48H/Meropenem/Tamiflu D/W Dr Garcia about duration of tamiflu Continue Levophed@2, Fentanyl @ 50mcg, Keep MAP >65 Cardio: Atrial fibrillation with RVR Hold AC in the setting of Anemia & subdural bleed Cardiology on board, Dr. Mays Amiodarone 200mg NGT Digoxin @0.25 Pulm: Acute respiratory failure Intubated/focaddm-HX-51, TV-450, 40%, 5/5, Continue Levophed, Fentanyl Continue ventilatory support- for weaning trials as tolerated Neuro: AMS Intubated and sedated Subdural bleeds Evaluated by neurosurgery, No recommendation for intervention at this time. Hemonc: Anemia of unknown etiology Hgb stable, responded well iv protonix 40mg daily Monitor H/H Transfuse as needed Renal: REBEKA, likely prerenal vs ATN from sepsis Cr-1.5 -improved Monitor Urine lytes, BUN, Cr. Endo: Hyperglycemia BGM ACHS ISS ACHS FEN/GI: Monitor BMPs Tube feeds, via NGT- osmolite @60ml/hr. PPx: Protonix 40 mg IV daily SCDs, no ac in the setting of anemia and subdural bleeds Dispo: Monitor in ICU Visit type - Emergency Visit Emergency Visit: Yes ED Registration Date: 05/05/17 Care time: The patient presented to the Emergency Department on the above date and was hospitalized for further evaluation of their emergent condition. - New Patient This patient is new to me today: Yes Date on this admission: 05/12/17 - Critical Care Critical Care patient: Yes Total Critical Care Time (in minutes): 38 Critical Care Statement: The care of this patient involved high complexity decision making to prevent further life threatening deterioration of the patient 's condition and/or to evaluate & treat vital organ system(s) failure or risk of failure.
[2017-05-12 07:47] LABS: BASO % 0.3 % (0-2.0); EOS % 1.2 % (0-4.5); HEMATOCRIT 25.6 % (35.4-49); HEMOGLOBIN 8.2 GM/dL (11.7-16.9); MCH 30.1 pg (25.7-33.7); MCHC 31.9 g/dl (32.0-35.9); MEAN CELL VOLUME 94.5 fl (80-96); MONO % 9.7 % (3.8-10.2); NEUT % 86.8 % (42.8-82.8); PLATELET COUNT 172 K/MM3 (134-434); RBC 2.71 M/mm3 (4.00-5.60); RDW 17.3 % (11.9-15.9); WHITE BLOOD COUNT 13.4 K/mm3 (4.0-10.0)
[2017-05-12 08:18] LABS: MAGNESIUM 1.9 mg/dL (1.8-2.4); PHOSPHOROUS 2.2 mg/dL (2.5-4.9)
[2017-05-12] MEDS ORDERED: POTASSIUM PHOSPHATE 30 MM in DEXTROSE 5%-WATER - 250 ML IVPB ONE (09:20)
[2017-05-12] MEDS: AMIODARONE HCL 200 MG TABLET (FP) NGT SCH ×2 (09:34→22:12)
[2017-05-12] MEDS: CHLORHEXIDINE GLUCONATE 0.12% 15ML CUP MM SCH ×2 (09:35→22:12)
[2017-05-12] MEDS: MEROPENEM 500 MG PUSH 500 MG/10 ML DISP.SYRIN IVPUSH SCH ×2 (09:35→22:12)
[2017-05-12] MEDS: PANTOPRAZOLE SODIUM 40 MG VIAL IVPUSH SCH (09:36)
[2017-05-12] MEDS ORDERED: SODIUM PHOSPHATE - 30 MM in DEXTROSE 5%-WATER - 250 ML IVPB ONE (10:45)
[2017-05-12] MEDS: OSELTAMIVIR PHOSPHATE 30 MG CAPSULE PO SCH (10:47)
--- NOTE | 2017-05-12 10:52 | PN ---
Progress Note, Physician Chief Complaint: spike temperature today cultures orderd tube feeds started over the weekend on norepinephrine for BP support - Current Medication List Current Medications: Active Medications Acetaminophen (Tylenol Oral Solution -) 650 mg PO Q6H PRN PRN Reason: FEVER Last Admin: 05/11/17 22:27 Dose: 650 mg Amiodarone HCl (Cordarone -) 200 mg NGT BID [facility] Last Admin: 05/12/17 09:34 Dose: 200 mg Chlorhexidine Gluconate (Peridex -) 15 ml MM BID [facility] Last Admin: 05/12/17 09:35 Dose: 15 ml Vancomycin HCl 1,000 mg/ (Dextrose) 250 mls @ 250 mls/hr IVPB Q48H SHANDA PRN Reason: Protocol Last Admin: 05/10/17 22:21 Dose: 250 mls/hr Meropenem (Merrem (Restricted To Id) -) 500 mg in 10 mls @ 120 mls/hr IVPUSH BID [facility] Last Admin: 05/12/17 09:35 Dose: 120 mls/hr Norepinephrine Bitartrate 8, (000 mcg/ Dextrose) 500 mls @ 6.88 mls/hr IV ASDIR SHANDA; 0.03 MCG/KG/MIN PRN Reason: Protocol Last Admin: 05/11/17 17:05 Dose: 0.28 mcg/kg/min, 65 mls/hr Fentanyl 500 mcg/ Sodium (Chloride) 100 mls @ 0 mls/hr IVPB TITR SHANDA; Titrate PRN Reason: Protocol Last Admin: 05/11/17 21:39 Dose: Not Given Sodium Phosphate 30 mm/ (Dextrose) 260 mls @ 62.5 mls/hr IVPB ONCE ONE Stop: 05/12/17 14:54 Last Admin: 05/12/17 10:46 Dose: 62.5 mls/hr Insulin Aspart (Novolog Vial Sliding Scale -) 1 vial SQ ACHS SHANDA PRN Reason: Protocol Last Admin: 05/12/17 06:41 Dose: 4 units Metoprolol Tartrate (Lopressor Injection -) 5 mg IVPUSH Q4H PRN PRN Reason: HYPERTENSION Oseltamivir Phosphate (Tamiflu -) 30 mg PO BID [facility] Stop: 05/15/17 10:01 Last Admin: 05/12/17 10:47 Dose: 30 mg Pantoprazole Sodium (Protonix Iv) 40 mg IVPUSH BID [facility] Last Admin: 05/12/17 09:36 Dose: 40 mg - Objective Vital Signs: Vital Signs Temperature 99 F 05/12/17 06:00 Pulse Rate 90 05/12/17 09:32 Respiratory Rate 25 H 05/12/17 08:50 Blood Pressure 148/66 05/12/17 06:00 O2 Sat by Pulse Oximetry (%) 99 05/12/17 09:32 Constitutional: Yes: Calm Cardiovascular: Yes: Regular Rate and Rhythm, S1, S2 Respiratory: Yes: Mechanically Ventilated Gastrointestinal: Yes: Soft Labs: CBC, BMP 05/12/17 05:15 05/12/17 05:15 INR, PTT INR 1.62 (0.82-1.09) H 05/09/17 05:13 Problem List - Problems (1) Sepsis Assessment/Plan: cultures ordered today ,spiked temp WBC is trending down septic shock on pressors respiratory failure intubated and sedated lactic acid trending down hemodynamic support with Norepinephrine tamiflu,for influenza A meropenem leukocytosis - ID On board Microbiology 05/06/17 02:18 Urine - Urine - Catheterized Urine Culture - Final NO GROWTH OBTAINED 05/05/17 22:00 Nasopharyngeal Swab Influenza Types A,B Antigen (MAGDA) - Final 05/05/17 22:00 Nasopharyngeal Swab - Final 05/05/17 22:20 Blood - Peripheral Venous Blood Culture - Preliminary NO GROWTH OBTAINED AFTER 48 HOURS, INCUBATION TO CONTINUE FOR 3 DAYS. 05/05/17 22:20 Blood - Peripheral Venous Blood Culture - Preliminary NO GROWTH OBTAINED AFTER 48 HOURS, INCUBATION TO CONTINUE FOR 3 DAYS. Code(s): A41.9 - SEPSIS, UNSPECIFIED ORGANISM Qualifiers: Sepsis type: sepsis due to unspecified organism Qualified Code(s): A41.9 - Sepsis, unspecified organism (2) REBEKA (acute kidney injury) Assessment/Plan: on presors will monitor creatinine- trending down now 1.0 from 2.0 hold ACEI renal sono noted Code(s): N17.9 - ACUTE KIDNEY FAILURE, UNSPECIFIED (3) Anemia Assessment/Plan: iron panel gi evaluation noted ppi iv s/p 3 units of prbc maintain H/h > 8 guaicic negative Code(s): D64.9 - ANEMIA, UNSPECIFIED Qualifiers: Other causes of anemia: chronic disease, other (4) Respiratory failure Assessment/Plan: intubated and sedated on fentanyl Code(s): J96.90 - RESPIRATORY FAILURE, UNSP, UNSP W HYPOXIA OR HYPERCAPNIA Qualifiers: Chronicity: acute Respiratory failure complication: hypoxia Qualified Code(s): J96.01 - Acute respiratory failure with hypoxia (5) Persistent atrial fibrillation with rapid ventricular response Assessment/Plan: got digoxin now started on amiodarone Code(s): I48.1 - PERSISTENT ATRIAL FIBRILLATION (6) Electrolyte abnormality Assessment/Plan: phosphorus repleted Code(s): E87.8 - OTH DISORDERS OF ELECTROLYTE AND FLUID BALANCE, NEC
--- NOTE | 2017-05-12 11:17 | PN ---
Progress Note, Physician History of Present Illness: Sedated and intubated, rate-controlled afib. - Current Medication List Current Medications: Active Medications Acetaminophen (Tylenol Oral Solution -) 650 mg PO Q6H PRN PRN Reason: FEVER Last Admin: 05/11/17 22:27 Dose: 650 mg Amiodarone HCl (Cordarone -) 200 mg NGT BID [facility] Last Admin: 05/12/17 09:34 Dose: 200 mg Chlorhexidine Gluconate (Peridex -) 15 ml MM BID [facility] Last Admin: 05/12/17 09:35 Dose: 15 ml Vancomycin HCl 1,000 mg/ (Dextrose) 250 mls @ 250 mls/hr IVPB Q48H SHANDA PRN Reason: Protocol Last Admin: 05/10/17 22:21 Dose: 250 mls/hr Meropenem (Merrem (Restricted To Id) -) 500 mg in 10 mls @ 120 mls/hr IVPUSH BID [facility] Last Admin: 05/12/17 09:35 Dose: 120 mls/hr Norepinephrine Bitartrate 8, (000 mcg/ Dextrose) 500 mls @ 6.88 mls/hr IV ASDIR SHANDA; 0.03 MCG/KG/MIN PRN Reason: Protocol Last Admin: 05/11/17 17:05 Dose: 0.28 mcg/kg/min, 65 mls/hr Fentanyl 500 mcg/ Sodium (Chloride) 100 mls @ 0 mls/hr IVPB TITR SHANDA; Titrate PRN Reason: Protocol Last Admin: 05/11/17 21:39 Dose: Not Given Sodium Phosphate 30 mm/ (Dextrose) 260 mls @ 62.5 mls/hr IVPB ONCE ONE Stop: 05/12/17 14:54 Last Admin: 05/12/17 10:46 Dose: 62.5 mls/hr Insulin Aspart (Novolog Vial Sliding Scale -) 1 vial SQ ACHS SHANDA PRN Reason: Protocol Last Admin: 05/12/17 06:41 Dose: 4 units Metoprolol Tartrate (Lopressor Injection -) 5 mg IVPUSH Q4H PRN PRN Reason: HYPERTENSION Oseltamivir Phosphate (Tamiflu -) 30 mg PO BID [facility] Stop: 05/15/17 10:01 Last Admin: 05/12/17 10:47 Dose: 30 mg Pantoprazole Sodium (Protonix Iv) 40 mg IVPUSH BID [facility] Last Admin: 05/12/17 09:36 Dose: 40 mg - Objective Vital Signs: Vital Signs Temperature 99 F 05/12/17 06:00 Pulse Rate 90 05/12/17 09:32 Respiratory Rate 25 H 05/12/17 08:50 Blood Pressure 148/66 05/12/17 06:00 O2 Sat by Pulse Oximetry (%) 99 05/12/17 09:32 Cardiovascular: Yes: Pulse Irregular Respiratory: Yes: Intubated, Mechanically Ventilated, Rhonchi Gastrointestinal: Yes: Normal Bowel Sounds, Soft Edema: No Labs: CBC, BMP 05/12/17 05:15 05/12/17 05:15 INR, PTT INR 1.62 (0.82-1.09) H 05/09/17 05:13 - ....Imaging EKG: Report Reviewed (Tele: Rate-controlled afib) Problem List - Problems (1) Persistent atrial fibrillation with rapid ventricular response Code(s): I48.1 - PERSISTENT ATRIAL FIBRILLATION (2) Influenza Code(s): J11.1 - FLU DUE TO UNIDENTIFIED INFLUENZA VIRUS W OTH RESP MANIFEST (3) Respiratory failure Code(s): J96.90 - RESPIRATORY FAILURE, UNSP, UNSP W HYPOXIA OR HYPERCAPNIA Qualifiers: Chronicity: acute Respiratory failure complication: hypoxia Qualified Code(s): J96.01 - Acute respiratory failure with hypoxia (4) Subdural hematoma Code(s): I62.00 - NONTRAUMATIC SUBDURAL HEMORRHAGE, UNSPECIFIED (5) Pneumonia Code(s): J18.9 - PNEUMONIA, UNSPECIFIED ORGANISM Qualifiers: Pneumonia type: due to unspecified organism Laterality: left Lung location: lower lobe of lung Qualified Code(s): J18.1 - Lobar pneumonia, unspecified organism (6) [id number] kidney injury Code(s): N17.9 - ACUTE KIDNEY FAILURE, UNSPECIFIED; N18.9 - CHRONIC KIDNEY DISEASE, UNSPECIFIED Qualifiers: Chronic kidney disease stage: stage 3 (moderate) Assessment/Plan 1. Acute hypoxic respiratory failure, Influenza A, pneumonia and septic shock with lactic acidosis 2. Persistent atrial fibrillation [id number] not on anticoagulation due to history of SDH 2. CAD with evidence of demand ischemic injury, angina pectoris 3. Diastolic LV dysfunction with class 0-I NYHA classification LV failure 4. Profound anemia, source to be determined, post transfusion 5. Acute on chronic kidney disease improving 6. Hyperglycemia/DM 7. History of HTN, currently hypotensive/septic shock 8. Hyperkalemia 9. Chronic SDH PLAN: 1. Antibiotics and Tamiflu 2. Pressors (Levophed) to maintain MAP > 65 and attempt to wean off as tolerated 3. Monitor Hgb and transfuse as needed maintaining Hgb equal or > 8.0 4. Vent support per critical care team 5. Given Digoxin IV one dose earlier. Further rate control with IV beta alessandra as BP tolerates 6. Amiodarone via NGT
--- NOTE | 2017-05-12 12:17 | PN ---
Teaching Attending Note Name of Resident: Linda Rose ATTENDING PHYSICIAN STATEMENT I saw and evaluated the patient. I reviewed the resident's note and discussed the case with the resident. I agree with the resident's findings and plan as documented. SUBJECTIVE: Pt seen and examined in the ICU. Remains intubated, sedated on levophed gtt. Vented on volume assist control with 40% FiO2. OBJECTIVE: Last Vital Signs Temp Pulse Resp BP Pulse Ox 99 F 90 19 148/66 99 05/12/17 06:00 05/12/17 09:32 05/12/17 11:26 05/12/17 06:00 05/12/17 09:32 Intake & Output 05/09/17 05/10/17 05/11/17 05/12/17 23:59 23:59 23:59 23:59 Intake Total 1989 3315.6 3489.1 1680 Output Total 2150 850 1400 350 Balance -160 2465.6 2089.1 1330 Weight 64.047 kg 65.4 kg 65.816 kg 68.084 kg Gen: intubated, sedated Heart: RRR Lung: scattered rhonchi Abd: softly distended, nontender Ext: + edema CBC, BMP 05/12/17 05:15 05/12/17 05:15 Active Medications Acetaminophen (Tylenol Oral Solution -) 650 mg PO Q6H PRN PRN Reason: FEVER Last Admin: 05/11/17 22:27 Dose: 650 mg Amiodarone HCl (Cordarone -) 200 mg NGT BID [facility] Last Admin: 05/12/17 09:34 Dose: 200 mg Chlorhexidine Gluconate (Peridex -) 15 ml MM BID [facility] Last Admin: 05/12/17 09:35 Dose: 15 ml Vancomycin HCl 1,000 mg/ (Dextrose) 250 mls @ 250 mls/hr IVPB Q48H SHANDA PRN Reason: Protocol Last Admin: 05/10/17 22:21 Dose: 250 mls/hr Meropenem (Merrem (Restricted To Id) -) 500 mg in 10 mls @ 120 mls/hr IVPUSH BID [facility] Last Admin: 05/12/17 09:35 Dose: 120 mls/hr Norepinephrine Bitartrate 8, (000 mcg/ Dextrose) 500 mls @ 6.88 mls/hr IV ASDIR SHANDA; 0.03 MCG/KG/MIN PRN Reason: Protocol Last Admin: 05/11/17 17:05 Dose: 0.28 mcg/kg/min, 65 mls/hr Fentanyl 500 mcg/ Sodium (Chloride) 100 mls @ 0 mls/hr IVPB TITR SHANDA; Titrate PRN Reason: Protocol Last Admin: 05/11/17 21:39 Dose: Not Given Sodium Phosphate 30 mm/ (Dextrose) 260 mls @ 62.5 mls/hr IVPB ONCE ONE Stop: 05/12/17 14:54 Last Admin: 05/12/17 10:46 Dose: 62.5 mls/hr Insulin Aspart (Novolog Vial Sliding Scale -) 1 vial SQ ACHS SHANDA PRN Reason: Protocol Last Admin: 05/12/17 06:41 Dose: 4 units Metoprolol Tartrate (Lopressor Injection -) 5 mg IVPUSH Q4H PRN PRN Reason: HYPERTENSION Oseltamivir Phosphate (Tamiflu -) 30 mg PO BID SHANDA Stop: 05/15/17 10:01 Last Admin: 05/12/17 10:47 Dose: 30 mg Pantoprazole Sodium (Protonix Iv) 40 mg IVPUSH BID [facility] Last Admin: 05/12/17 09:36 Dose: 40 mg ASSESSMENT AND PLAN: Acute Hypoxic Respiratory Failure Influenza A Pneumonia Septic Shock Acute Kidney Injury improving Lactic Acidosis resolved Anemia s/p PRBC transfusions Atrial Fibrillation CAD LV Diastolic Dysfunction Subdural Hematoma HTN Dementia Recent R Hip Fracture s/p surgery - antibiotics, tamiflu per ID - reculture if febrile - IVF to keep CVP 8-12 - titrate pressors to maintain MAP >65 - monitor urine output, creatinine - kayexalate today - hold anticoagulation - can change protonix to daily - monitor H/H - hold sedation to assess mental status - spontaneous breathing trials as tolerated when mental status improved - enteral feeds - DVT/GI prophylaxis - continue ICU monitoring critical care time spent in reviewing chart, evaluating patient and formulating plan 35 min
--- NOTE | 2017-05-12 12:51 | PN ---
Progress Note, Physician History of Present Illness: Pt seen and examined at bedside. He remains in the ICU he remains intubated. - Current Medication List Current Medications: Active Medications Acetaminophen (Tylenol Oral Solution -) 650 mg PO Q6H PRN PRN Reason: FEVER Last Admin: 05/11/17 22:27 Dose: 650 mg Amiodarone HCl (Cordarone -) 200 mg NGT BID [facility] Last Admin: 05/12/17 09:34 Dose: 200 mg Chlorhexidine Gluconate (Peridex -) 15 ml MM BID [facility] Last Admin: 05/12/17 09:35 Dose: 15 ml Vancomycin HCl 1,000 mg/ (Dextrose) 250 mls @ 250 mls/hr IVPB Q48H SHANDA PRN Reason: Protocol Last Admin: 05/10/17 22:21 Dose: 250 mls/hr Meropenem (Merrem (Restricted To Id) -) 500 mg in 10 mls @ 120 mls/hr IVPUSH BID [facility] Last Admin: 05/12/17 09:35 Dose: 120 mls/hr Norepinephrine Bitartrate 8, (000 mcg/ Dextrose) 500 mls @ 6.88 mls/hr IV ASDIR SHANDA; 0.03 MCG/KG/MIN PRN Reason: Protocol Last Titration: 05/12/17 12:25 Dose: 0.07 mcg/kg/min, 17 mls/hr Fentanyl 500 mcg/ Sodium (Chloride) 100 mls @ 0 mls/hr IVPB TITR SHANDA; Titrate PRN Reason: Protocol Last Admin: 05/11/17 21:39 Dose: Not Given Sodium Phosphate 30 mm/ (Dextrose) 260 mls @ 62.5 mls/hr IVPB ONCE ONE Stop: 05/12/17 14:54 Last Admin: 05/12/17 10:46 Dose: 62.5 mls/hr Insulin Aspart (Novolog Vial Sliding Scale -) 1 vial SQ ACHS SHANDA PRN Reason: Protocol Last Admin: 05/12/17 06:41 Dose: 4 units Metoprolol Tartrate (Lopressor Injection -) 5 mg IVPUSH Q4H PRN PRN Reason: HYPERTENSION Oseltamivir Phosphate (Tamiflu -) 30 mg PO BID SHANDA Stop: 05/15/17 10:01 Last Admin: 05/12/17 10:47 Dose: 30 mg Pantoprazole Sodium (Protonix Iv) 40 mg IVPUSH BID [facility] Last Admin: 05/12/17 09:36 Dose: 40 mg - Objective Vital Signs: Vital Signs Temperature 100.7 F H 05/12/17 12:00 Pulse Rate 86 05/12/17 12:25 Respiratory Rate 18 05/12/17 12:00 Blood Pressure 85/45 05/12/17 12:25 O2 Sat by Pulse Oximetry (%) 99 05/12/17 09:32 Constitutional: Yes: Calm Eyes: Yes: Conjunctiva Clear HENT: Yes: Atraumatic Neck: Yes: Supple Cardiovascular: Yes: S1, S2 Respiratory: Yes: Mechanically Ventilated Gastrointestinal: Yes: Soft Genitourinary: Yes: [place] Present Musculoskeletal: Yes: Muscle Weakness Edema: Yes Edema: LUE: 1+, RUE: 1+ Neurological: Yes: Lethargy Labs: CBC, BMP 05/12/17 05:15 05/12/17 05:15 INR, PTT INR 1.62 (0.82-1.09) H 05/09/17 05:13 - ....Imaging Chest X-ray: Report Reviewed Problem List - Problems (1) [id number] kidney injury Code(s): N17.9 - ACUTE KIDNEY FAILURE, UNSPECIFIED; N18.9 - CHRONIC KIDNEY DISEASE, UNSPECIFIED Qualifiers: Chronic kidney disease stage: stage 3 (moderate) (2) Influenza Code(s): J11.1 - FLU DUE TO UNIDENTIFIED INFLUENZA VIRUS W OTH RESP MANIFEST (3) Respiratory failure Code(s): J96.90 - RESPIRATORY FAILURE, UNSP, UNSP W HYPOXIA OR HYPERCAPNIA Qualifiers: Chronicity: acute Respiratory failure complication: hypoxia Qualified Code(s): J96.01 - Acute respiratory failure with hypoxia (4) Sepsis Code(s): A41.9 - SEPSIS, UNSPECIFIED ORGANISM Qualifiers: Sepsis type: sepsis due to unspecified organism Qualified Code(s): A41.9 - Sepsis, unspecified organism (5) REBEKA (acute kidney injury) Code(s): N17.9 - ACUTE KIDNEY FAILURE, UNSPECIFIED Assessment/Plan Current Medications Generic Name Dose Route Start Last Admin Trade Name Freq PRN Reason Stop Dose Admin Acetaminophen 650 mg 05/06/17 17:00 05/11/17 22:27 Tylenol Oral Solution - PO 650 mg Q6H PRN Administration FEVER Amiodarone HCl 200 mg 05/09/17 22:00 05/12/17 09:34 Cordarone - NGT 200 mg BID SHANDA Administration Chlorhexidine Gluconate 15 ml 05/07/17 22:00 05/12/17 09:35 Peridex - MM 15 ml BID SHANDA Administration Vancomycin HCl 1,000 mg/ 250 mls @ 250 mls/hr 05/06/17 22:00 05/10/17 22:21 Dextrose IVPB 250 mls/hr Q48H SHANDA Administration Protocol Meropenem 500 mg in 10 mls @ 120 mls/hr 05/06/17 14:45 05/12/17 09:35 Merrem (Restricted To Id) - IVPUSH 120 mls/hr BID SHANDA Administration Norepinephrine Bitartrate 8, 500 mls @ 6.88 mls/hr 05/07/17 11:45 05/12/17 12 :25 000 mcg/ Dextrose IV 0.07 mcg/kg/min ASDIR SHANDA 17 mls/hr Protocol Titration 0.03 MCG/KG/MIN Fentanyl 500 mcg/ Sodium 100 mls @ 0 mls/hr 05/08/17 20:30 05/11/17 21:39 Chloride IVPB Not Given TITR SHANDA Protocol Titrate Sodium Phosphate 30 mm/ 260 mls @ 62.5 mls/hr 05/12/17 10:45 05/12/17 10:46 Dextrose IVPB 05/12/17 14:54 62.5 mls/hr ONCE ONE Administration Insulin Aspart 1 vial 05/06/17 16:30 05/12/17 06:41 Novolog Vial Sliding Scale - SQ 4 units ACHS SHANDA Administration Protocol Metoprolol Tartrate 5 mg 05/11/17 09:58 Lopressor Injection - IVPUSH Q4H PRN HYPERTENSION Oseltamivir Phosphate 30 mg 05/11/17 23:00 05/12/17 10:47 Tamiflu - PO 05/15/17 10:01 30 mg BID SHANDA Administration Pantoprazole Sodium 40 mg 05/07/17 22:00 05/12/17 09:36 Protonix Iv IVPUSH 40 mg BID SHANDA Administration Impression 1. REBEKA 2. hip fracture 3. htn 4. dementia 5. anemia 6. hypomagnesemia 7. iron deficiency 8. hyperkalemia 9. respiratory failure requiring intubation 10. sepsis Plan - stop potassium supplement - change feeds to nepro - monitor renal funciton - bowel regiment - treat potassium medically - cxr reviewed - likely REBEKA from sepsis and prerenal disease causing ATN - hold cesar Dr Rubi
[2017-05-12] MEDS ORDERED: INSULIN (NOVOLOG) ASPART 100 UNITS/ML 10ML VIAL ONE (12:56)
[2017-05-12] MEDS ORDERED: fentaNYL CITRATE 250 MCG/5 ML VIAL ONE ×2 (14:56→21:51)
[2017-05-12] MEDS: FENTANYL INJECTION 500 MCG in SODIUM CHLORIDE 90 ML IVPB SCH ×2 (15:11→22:11)
[2017-05-12] MEDS ORDERED: SODIUM POLYSTYRENE SULFONATE 15 GM/60 ML BOTTLE NGT ONE (15:30)
[2017-05-12] MEDS ORDERED: SODIUM POLYSTYRENE SULFONATE 15 GM/60 ML BOTTLE ONE (18:07)
[2017-05-12] MEDS: NOREPINEPHRINE BITARTRATE 8,000 MCG in DEXTROSE 5%-WATER - 492 ML IV SCH (18:09)
[2017-05-12 19:29] LABS: URINE APPEARANCE CLOUDY; URINE BILIRUBIN NEGATIVE (NEGATIVE); URINE BLOOD 1+ (NEGATIVE); URINE COLOR YELLOW; URINE GLUCOSE (UA) 1+ (NEGATIVE); URINE KETONE NEGATIVE (NEGATIVE); URINE NITRITE NEGATIVE (NEGATIVE); URINE PROTEIN NEGATIVE (NEGATIVE); URINE UROBILINOGEN NEGATIVE mg/dL (0.2-1.0)
[2017-05-12 19:35] LABS: URINE LEUK ESTERASE 2+ (NEGATIVE)
[2017-05-12 20:34] LABS: URINE BACTERIA RARE /hpf (NONE SEEN); YEAST MANY
[2017-05-12] MEDS: ACETAMINOPHEN 650 MG/20.3 ML ORAL SOLUTION (CUPS) PO PRN (22:19)
[2017-05-13 06:52] LABS: ALBUMIN 1.2 g/dl (3.4-5.0); BLOOD UREA NITROGEN 33 mg/dL (7-18); CALCIUM 7.2 mg/dL (8.5-10.1); CHLORIDE 104 mmol/L (98-107); GLUCOSE,RANDOM 147 mg/dL (74-106); PHOSPHOROUS 2.8 mg/dL (2.5-4.9); POTASSIUM 4.8 mmol/L (3.5-5.1); SGOT/AST 58 U/L (15-37); SODIUM 137 mmol/L (136-145)
[2017-05-13 06:55] LABS: ALK PHOS 277 U/L (45-117); ANION GAP 6 (8-16); BILIRUBIN,TOTAL 0.6 mg/dL (0.2-1.0); CO2 27 mmol/L (21-32); CREATININE 0.9 mg/dL (0.7-1.3); SGPT/ALT 36 U/L (12-78); TOT PROT 4.7 g/dl (6.4-8.2)
--- NOTE | 2017-05-13 07:23 | PN ---
Progress Note (short form) - Note Progress Note: Chief Complaint: Events noted, notes reviewed, remains intubated and sedated, no distress, sinus rhythm is maintained History of Present Illness: Seen and examined in the ICU. Events noted, notes reviewed, remains intubated and sedated, no distress, sinus rhythm is maintained Remains on Amiodarone and sedation with Fentanyl Echocardiography revealed normal LV size and function, abnormal septal motion, dilated RA, moderate MS, mild MR, mild AI, moderate to severe TR, RVSP of 46.6 mmHg - Current Medication List Current Medications: Current Medications Acetaminophen (Tylenol Oral Solution -) 650 mg PO Q6H PRN PRN Reason: FEVER Last Admin: 05/12/17 22:19 Dose: 650 mg Amiodarone HCl (Cordarone -) 200 mg NGT BID [facility] Last Admin: 05/12/17 22:12 Dose: 200 mg Chlorhexidine Gluconate (Peridex -) 15 ml MM BID [facility] Last Admin: 05/12/17 22:12 Dose: 15 ml Docusate Sodium (Colace Liquid -) 100 mg NGT DAILY [facility] Stop: 05/20/17 09:59 Meropenem (Merrem (Restricted To Id) -) 500 mg in 10 mls @ 120 mls/hr IVPUSH BID [facility] Last Admin: 05/12/17 22:12 Dose: 120 mls/hr Norepinephrine Bitartrate 8, (000 mcg/ Dextrose) 500 mls @ 6.88 mls/hr IV ASDIR SHANDA; 0.03 MCG/KG/MIN PRN Reason: Protocol Last Admin: 05/12/17 18:09 Dose: Not Given Fentanyl 500 mcg/ Sodium (Chloride) 100 mls @ 0 mls/hr IVPB TITR SHANDA; Titrate PRN Reason: Protocol Last Admin: 05/12/17 22:11 Dose: Not Given Insulin Aspart (Novolog Vial Sliding Scale -) 1 vial SQ ACHS SHANDA PRN Reason: Protocol Last Admin: 05/12/17 22:12 Dose: Not Given Metoprolol Tartrate (Lopressor Injection -) 5 mg IVPUSH Q4H PRN PRN Reason: HYPERTENSION Pantoprazole Sodium (Protonix Iv) 40 mg IVPUSH DAILY [facility] Senna (Senna Oral Solution -) 8.8 mg PO HS [facility] Stop: 05/20/17 09:59 Review of Systems Unable to Obtain - Objective Vital Signs: Last Vital Signs Temp Pulse Resp BP Pulse Ox 99 F 88 21 130/70 99 05/13/17 06:00 05/13/17 06:00 05/13/17 06:51 05/13/17 06:00 05/12/17 21:42 Intake & Output 05/10/17 05/11/17 05/12/17 05/13/17 23:59 23:59 23:59 23:59 Intake Total 3315.6 3489.1 2710 540 Output Total 850 1400 1350 325 Balance 2465.6 2089.1 1360 215 Weight 144 lb 2.917 oz 145 lb 1.6 oz 150 lb 1.6 oz 152 lb 1.6 oz Neck: Supple Negative JVD Cardiovascular: S1 S2 Regualr Rtae Rhythm Grade 1-2/6 SM Respiratory: Diminished Breath Sounds with Bilateral Scattered Rhonchi Gastrointestinal: Soft Benign Normal Bowel Sounds Extremities: Negative Edema Labs: CBC, BMP 05/12/17 05:15 05/13/17 05:20 Hepatic Panel Total Bilirubin 0.6 mg/dL (0.2-1.0) 05/13/17 05:20 AST 58 U/L (15-37) H 05/13/17 05:20 ALT 36 U/L (12-78) D 05/13/17 05:20 Alkaline Phosphatase 277 U/L (45-117) H 05/13/17 05:20 Albumin 1.2 g/dl (3.4-5.0) L 05/13/17 05:20 INR, PTT INR 1.62 (0.82-1.09) H 05/09/17 05:13 Assessment/Plan ASSESSMENT: 1. Acute respiratory failure, Influenza A, pneumonia, septic shock with lactic acidosis, resolving 2. CAD with evidence of demand ischemic injury, angina pectoris 3. Diastolic LV dysfunction with class 0-I NYHA classification LV failure, compensated/hypovolemic 4. Paroxysmal atrial fibrillation [id number] score of 6 on no A/C related to profound anemia, source to be determined, post transfusion 5. Acute on chronic kidney disease 6. HTN 7. DM 8. Chronic SDH PLAN: 1. Antibiotics as per the primary team 2. Continue Amiodarone 3. Continue B-Blockers 4. Not an appropriate candidate for A/C related to history of chronic SDH, anemia 5. Attempt to extubate as per the primary/critical care team Doron laguerre MD
--- NOTE | 2017-05-13 07:53 | PN ---
Physical Exam: SUBJECTIVE: Patient seen and examined. Still having intermittent fevers. Off pressors. Was on Fentanyl @50mcg. Started nepro feeds@40mls. Had good cough reflex and was spontaneously moving limbs today. Intubated and sedated- RR-16, TV-450, 40%, 5/ OBJECTIVE: Vital Signs Period Temp Pulse Resp BP Sys/[place] Pulse Ox Last 24 Hr 99 F-102.2 F 82-97 12- 85-131/45-70 97-99 Vital Signs Temp 99 F 05/13/17 06:00 Pulse 88 05/13/17 06:00 Resp 21 05/13/17 06:51 BP 130/70 05/13/17 06:00 Pulse Ox 99 05/12/17 21:42 Intake & Output 05/10/17 05/11/17 05/12/17 05/13/17 23:59 23:59 23:59 23:59 Intake Total 3315.6 3489.1 2710 540 Output Total 850 1400 1350 325 Balance 2465.6 2089.1 1360 215 Weight 65.4 kg 65.816 kg 68.084 kg 68.991 kg GENERAL:Intubated and sedated- RR-16, TV-450, 40%, 5 EYES: Round reactive bilaterally ENT: NGT, ETT, moist mucous membranes. LUNGS: Bilateral fine creps R>L HEART: Regular rate and rhythm, S1, S2 ABDOMEN: normoactive bowel sounds EXTREMITIES:Reduced bilateral UE edema NEUROLOGICAL: Intubated and sedated PSYCH: Cannot assess Lines: ETT, NGT, RIJ, [place], SCDs, Heel pads Laboratory Results - last 24 hr 05/06/17 05/12/17 05/12/17 12:47 05:15 05:15 WBC 13.4 H RBC 2.71 L Hgb 8.2 L Hct 25.6 L MCV 94.5 MCH 30.1 MCHC 31.9 L RDW 17.3 H Plt Count 172 MPV 8.0 Neutrophils % 86.8 H Lymphocytes % 2.0 L D Monocytes % 9.7 Eosinophils % 1.2 D Basophils % 0.3 Sodium 134 L Potassium 5.7 H Chloride 103 Carbon Dioxide 28 Anion Gap 3 L BUN 35 H Creatinine 1.0 Creat Clearance w eGFR > 60 POC Glucometer > 400 Random Glucose 227 H D Calcium 7.1 L Phosphorus 2.2 L Magnesium 1.9 Total Bilirubin 0.7 AST 54 H D ALT 24 D Alkaline Phosphatase 338 H Total Protein 4.8 L Albumin 1.3 L Urine Color Urine Appearance Urine pH Ur Specific [place] Urine Protein Urine Glucose (UA) Urine Ketones Urine Blood Urine Nitrite Urine Bilirubin Urine Urobilinogen Ur Leukocyte Esterase Urine WBC (Auto) Urine RBC (Auto) Urine Bacteria Urine Yeast 05/12/17 05/12/17 05/12/17 05:23 07:51 12:52 WBC RBC Hgb Hct MCV MCH MCHC RDW Plt Count MPV Neutrophils % Lymphocytes % Monocytes % Eosinophils % Basophils % Sodium Potassium Chloride Carbon Dioxide Anion Gap BUN Creatinine Creat Clearance w eGFR POC Glucometer 283.35214 321.55143 Random Glucose Calcium Phosphorus Cancelled Magnesium Cancelled Total Bilirubin AST ALT Alkaline Phosphatase Total Protein Albumin Urine Color Urine Appearance Urine pH Ur Specific [place] Urine Protein Urine Glucose (UA) Urine Ketones Urine Blood Urine Nitrite Urine Bilirubin Urine Urobilinogen Ur Leukocyte Esterase Urine WBC (Auto) Urine RBC (Auto) Urine Bacteria Urine Yeast 05/12/17 05/12/17 05/12/17 17:15 21:48 Unknown WBC RBC Hgb Hct MCV MCH MCHC RDW Plt Count MPV Neutrophils % Lymphocytes % Monocytes % Eosinophils % Basophils % Sodium Potassium Chloride Carbon Dioxide Anion Gap BUN Creatinine Creat Clearance w eGFR POC Glucometer 164.14514 172.83087 Random Glucose Calcium Phosphorus Magnesium Total Bilirubin AST ALT Alkaline Phosphatase Total Protein Albumin Urine Color Yellow Urine Appearance Cloudy Urine pH 5.0 Ur Specific [place] 1.009 Urine Protein Negative Urine Glucose (UA) 1+ H Urine Ketones Negative Urine Blood 1+ H Urine Nitrite Negative Urine Bilirubin Negative Urine Urobilinogen Negative Ur Leukocyte Esterase 2+ H Urine WBC (Auto) 16 Urine RBC (Auto) 50 Urine Bacteria Rare Urine Yeast Many 05/13/17 05/13/17 05:20 05:23 WBC RBC Hgb Hct MCV MCH MCHC RDW Plt Count MPV Neutrophils % Lymphocytes % Monocytes % Eosinophils % Basophils % Sodium 137 Potassium 4.8 Chloride 104 Carbon Dioxide 27 Anion Gap 6 L BUN 33 H Creatinine 0.9 Creat Clearance w eGFR > 60 POC Glucometer 193.48162 Random Glucose 147 H D Calcium 7.2 L Phosphorus 2.8 D Magnesium 2.0 Total Bilirubin 0.6 AST 58 H ALT 36 D Alkaline Phosphatase 277 H Total Protein 4.7 L Albumin 1.2 L Urine Color Urine Appearance Urine pH Ur Specific [place] Urine Protein Urine Glucose (UA) Urine Ketones Urine Blood Urine Nitrite Urine Bilirubin Urine Urobilinogen Ur Leukocyte Esterase Urine WBC (Auto) Urine RBC (Auto) Urine Bacteria Urine Yeast Active Medications Generic Name Dose Route Start Last Admin Trade Name Freq PRN Reason Stop Dose Admin Acetaminophen 650 mg 05/06/17 17:00 05/12/17 22:19 Tylenol Oral Solution - PO 650 mg Q6H PRN Administration FEVER Amiodarone HCl 200 mg 05/09/17 22:00 05/12/17 22:12 Cordarone - NGT 200 mg BID [facility] Administration Chlorhexidine Gluconate 15 ml 05/07/17 22:00 05/12/17 22:12 Peridex - MM 15 ml BID [facility] Administration Docusate Sodium 100 mg 05/13/17 10:00 Colace Liquid - NGT 05/20/17 09:59 DAILY [facility] Meropenem 500 mg in 10 mls @ 120 mls/hr 05/06/17 14:45 05/12/17 22:12 Merrem (Restricted To Id) - IVPUSH 120 mls/hr BID [facility] Administration Norepinephrine Bitartrate 8, 500 mls @ 6.88 mls/hr 05/07/17 11:45 05/12/17 18 :09 000 mcg/ Dextrose IV Not Given ASDIR [facility] Protocol 0.03 MCG/KG/MIN Fentanyl 500 mcg/ Sodium 100 mls @ 0 mls/hr 05/08/17 20:30 05/12/17 22:11 Chloride IVPB Not Given TITR [facility] Protocol Titrate Insulin Aspart 1 vial 05/06/17 16:30 05/12/17 22:12 Novolog Vial Sliding Scale - SQ Not Given ACHS [facility] Protocol Metoprolol Tartrate 25 mg 05/13/17 10:00 Lopressor - NGT BID [facility] Pantoprazole Sodium 40 mg 05/13/17 10:00 Protonix Iv IVPUSH DAILY [facility] Senna 8.8 mg 05/13/17 10:00 Senna Oral Solution - PO 05/20/17 09:59 HS [facility] ASSESSMENT/PLAN: 86M with pmhx of dementia, metabolic encephalopathy, sent from [facility] for hypoxia in the 70's Pt was intubated admitted to ICU for acute respiratory failure. ID: Septic shock 2/2 to PNA and flu ID-Dr. Garcia Per Dr Garcia restarting Vanc-1g Q48H Completed tamiflu yesterday Still on meropenem Titrated off Levophed Fentanyl @ 50mcg, Pending cultures D/W Dr Garcia- Duplex US of bilateral UE and LE (not on AC) R/O sinusitis (portable xray of sinuses) Cardio: Atrial fibrillation with RVR Hold AC in the setting of Anemia & subdural bleed Cardiology on board, Dr. Mays Amiodarone 200mg NGT Digoxin @0.25 Pulm: Acute respiratory failure Intubated/tmmsogy-FQ-54, TV-450, 40%, 5/5 Off Levophed, Continue Fentanyl Continue ventilatory support- for weaning trials as tolerated Neuro: AMS Intubated and sedated Subdural bleeds Evaluated by neurosurgery, No recommendation for intervention at this time. Hemonc: Anemia of unknown etiology Hgb stable, responded well iv protonix 40mg daily Monitor H/H Transfuse as needed Renal: REBEKA, likely prerenal vs ATN from sepsis Cr-0.9-improved Monitor Urine lytes, BUN, Cr. Endo: Hyperglycemia BGM ACHS ISS ACHS FEN/GI: Monitor BMPs Tube feeds, via NGT- switched to nepro- Per Dr Rubi-@40. PPx: Protonix 40 mg IV daily SCDs, no ac in the setting of anemia and subdural bleeds Dispo: Monitor in ICU Visit type - Emergency Visit Emergency Visit: Yes ED Registration Date: 05/05/17 Care time: The patient presented to the Emergency Department on the above date and was hospitalized for further evaluation of their emergent condition. - New Patient This patient is new to me today: No - Critical Care Critical Care patient: Yes Total Critical Care Time (in minutes): 40 Critical Care Statement: The care of this patient involved high complexity decision making to prevent further life threatening deterioration of the patient 's condition and/or to evaluate & treat vital organ system(s) failure or risk of failure. - Discharge Referral Referred to [facility] No
[2017-05-13 08:27] LABS: BASO % 0.3 % (0-2.0); EOS % 0.8 % (0-4.5); HEMATOCRIT 24.6 % (35.4-49); HEMOGLOBIN 7.9 GM/dL (11.7-16.9); MCH 30.1 pg (25.7-33.7); MCHC 32.2 g/dl (32.0-35.9); MEAN CELL VOLUME 93.6 fl (80-96); MEAN PLT VOLUME 8.4 fl (7.5-11.1); MONO % 6.9 % (3.8-10.2); PLATELET COUNT 177 K/MM3 (134-434); RBC 2.63 M/mm3 (4.00-5.60); RDW 17.3 % (11.9-15.9)
[2017-05-13] MEDS ORDERED: PT OWN MED DRAWER 7, Y5N ONE ×2 (09:26→21:31)
[2017-05-13] MEDS: DOCUSATE NA 100 MG/10 ML UNIT-DOSE CUPS NGT SCH (09:30)
[2017-05-13] MEDS: PANTOPRAZOLE SODIUM 40 MG VIAL IVPUSH SCH (09:30)
[2017-05-13] MEDS: CHLORHEXIDINE GLUCONATE 0.12% 15ML CUP MM SCH ×2 (09:30→21:34)
[2017-05-13] MEDS: MEROPENEM 500 MG PUSH 500 MG/10 ML DISP.SYRIN IVPUSH SCH ×2 (09:30→21:33)
[2017-05-13] MEDS: AMIODARONE HCL 200 MG TABLET (FP) NGT SCH ×2 (09:31→21:33)
[2017-05-13] MEDS: METOPROLOL TARTRATE 25 MG TABLET (FP) NGT SCH ×2 (09:31→21:33)
[2017-05-13] MEDS: FENTANYL INJECTION 500 MCG in SODIUM CHLORIDE 90 ML IVPB SCH (09:32)
--- NOTE | 2017-05-13 10:55 | PN ---
Progress Note, Physician Chief Complaint: fentanyl turned off, on cpap trial - Current Medication List Current Medications: Active Medications Acetaminophen (Tylenol Oral Solution -) 650 mg PO Q6H PRN PRN Reason: FEVER Last Admin: 05/12/17 22:19 Dose: 650 mg Amiodarone HCl (Cordarone -) 200 mg NGT BID [facility] Last Admin: 05/13/17 09:31 Dose: 200 mg Chlorhexidine Gluconate (Peridex -) 15 ml MM BID [facility] Last Admin: 05/13/17 09:30 Dose: 15 ml Docusate Sodium (Colace Liquid -) 100 mg NGT DAILY [facility] Stop: 05/20/17 09:59 Last Admin: 05/13/17 09:30 Dose: 100 mg Meropenem (Merrem (Restricted To Id) -) 500 mg in 10 mls @ 120 mls/hr IVPUSH BID [facility] Last Admin: 05/12/17 22:12 Dose: 120 mls/hr Norepinephrine Bitartrate 8, (000 mcg/ Dextrose) 500 mls @ 6.88 mls/hr IV ASDIR SHANDA; 0.03 MCG/KG/MIN PRN Reason: Protocol Last Titration: 05/13/17 09:20 Dose: 0 mcg/kg/min, 0 mls/hr Fentanyl 500 mcg/ Sodium (Chloride) 100 mls @ 8 mls/hr IVPB TITR [facility]; Titrate PRN Reason: Protocol Last Admin: 05/13/17 09:32 Dose: Not Given Insulin Aspart (Novolog Vial Sliding Scale -) 1 vial SQ ACHS SHANDA PRN Reason: Protocol Last Admin: 05/12/17 22:12 Dose: Not Given Metoprolol Tartrate (Lopressor -) 25 mg NGT BID [facility] Last Admin: 05/13/17 09:31 Dose: 25 mg Pantoprazole Sodium (Protonix Iv) 40 mg IVPUSH DAILY [facility] Senna (Senna Oral Solution -) 8.8 mg PO HS [facility] Stop: 05/20/17 09:59 - Objective Vital Signs: Vital Signs Temperature 99 F 05/13/17 06:00 Pulse Rate 103 H 05/13/17 09:34 Respiratory Rate 18 05/13/17 09:10 Blood Pressure 118/56 05/13/17 09:20 O2 Sat by Pulse Oximetry (%) 99 05/13/17 09:34 Cardiovascular: Yes: Regular Rate and Rhythm, S1, S2 Respiratory: Yes: Rhonchi (scattered) Gastrointestinal: Yes: Normal Bowel Sounds, Soft Genitourinary: Yes: [place] Present Labs: CBC, BMP 05/13/17 05:30 05/13/17 05:20 INR, PTT INR 1.62 (0.82-1.09) H 05/09/17 05:13 Problem List - Problems (1) Sepsis Assessment/Plan: cultures pending WBC still elevated pressors turned off respiratory failure intubated - off sedation cpap trial lactic acid trending down tamiflu,for influenza A meropenem leukocytosis - ID On board Microbiology 05/06/17 02:18 Urine - Urine - Catheterized Urine Culture - Final NO GROWTH OBTAINED 05/05/17 22:00 Nasopharyngeal Swab Influenza Types A,B Antigen (MAGDA) - Final 05/05/17 22:00 Nasopharyngeal Swab - Final 05/05/17 22:20 Blood - Peripheral Venous Blood Culture - Preliminary NO GROWTH OBTAINED AFTER 48 HOURS, INCUBATION TO CONTINUE FOR 3 DAYS. 05/05/17 22:20 Blood - Peripheral Venous Blood Culture - Preliminary NO GROWTH OBTAINED AFTER 48 HOURS, INCUBATION TO CONTINUE FOR 3 DAYS. Code(s): A41.9 - SEPSIS, UNSPECIFIED ORGANISM Qualifiers: Sepsis type: sepsis due to unspecified organism Qualified Code(s): A41.9 - Sepsis, unspecified organism (2) REBEKA (acute kidney injury) Assessment/Plan: on presors will monitor creatinine- trending down now 1.0 from 2.0 hold ACEI renal sono noted Code(s): N17.9 - ACUTE KIDNEY FAILURE, UNSPECIFIED (3) Anemia Assessment/Plan: iron panel gi evaluation noted ppi iv s/p 3 units of prbc maintain H/h > 8 guaicic negative Code(s): D64.9 - ANEMIA, UNSPECIFIED Qualifiers: Other causes of anemia: chronic disease, other (4) Respiratory failure Assessment/Plan: cpap trial sedation off Code(s): J96.90 - RESPIRATORY FAILURE, UNSP, UNSP W HYPOXIA OR HYPERCAPNIA Qualifiers: Chronicity: acute Respiratory failure complication: hypoxia Qualified Code(s): J96.01 - Acute respiratory failure with hypoxia (5) Persistent atrial fibrillation with rapid ventricular response Assessment/Plan: got digoxin now started on amiodarone via ngt tube no AC given h/o of chronic SDH Code(s): I48.1 - PERSISTENT ATRIAL FIBRILLATION (6) Electrolyte abnormality Assessment/Plan: phosphorus repleted feeding via NGT Code(s): E87.8 - OTH DISORDERS OF ELECTROLYTE AND FLUID BALANCE, NEC
--- NOTE | 2017-05-13 12:22 | PN ---
Teaching Attending Note Name of Resident: Linda Rose ATTENDING PHYSICIAN STATEMENT I saw and evaluated the patient. I reviewed the resident's note and discussed the case with the resident. I agree with the resident's findings and plan as documented. SUBJECTIVE: Pt seen and examined in the ICU. Remains intubated, sedated. Off levophed gtt. Vented on volume assist control with 40% FiO2. OBJECTIVE: Last Vital Signs Temp Pulse Resp BP Pulse Ox 100.1 F H 86 16 114/46 98 05/13/17 10:00 05/13/17 10:00 05/13/17 11:35 05/13/17 10:00 05/13/17 09:35 Intake & Output 05/10/17 05/11/17 05/12/17 05/13/17 23:59 23:59 23:59 23:59 Intake Total 3315.6 3489.1 2710 540 Output Total 850 1400 1350 325 Balance 2465.6 2089.1 1360 215 Weight 65.4 kg 65.816 kg 68.084 kg 68.991 kg Gen: intubated, sedated Heart: RRR Lung: scattered rhonchi Abd: soft, nontender Ext: + edema CBC, BMP 05/13/17 05:30 05/13/17 05:20 Active Medications Acetaminophen (Tylenol Oral Solution -) 650 mg PO Q6H PRN PRN Reason: FEVER Last Admin: 05/12/17 22:19 Dose: 650 mg Amiodarone HCl (Cordarone -) 200 mg NGT BID [facility] Last Admin: 05/13/17 09:31 Dose: 200 mg Chlorhexidine Gluconate (Peridex -) 15 ml MM BID [facility] Last Admin: 05/13/17 09:30 Dose: 15 ml Docusate Sodium (Colace Liquid -) 100 mg NGT DAILY [facility] Stop: 05/20/17 09:59 Last Admin: 05/13/17 09:30 Dose: 100 mg Meropenem (Merrem (Restricted To Id) -) 500 mg in 10 mls @ 120 mls/hr IVPUSH BID [facility] Last Admin: 05/12/17 22:12 Dose: 120 mls/hr Norepinephrine Bitartrate 8, (000 mcg/ Dextrose) 500 mls @ 6.88 mls/hr IV ASDIR SHANDA; 0.03 MCG/KG/MIN PRN Reason: Protocol Last Titration: 05/13/17 09:20 Dose: 0 mcg/kg/min, 0 mls/hr Fentanyl 500 mcg/ Sodium (Chloride) 100 mls @ 8 mls/hr IVPB TITR [facility]; Titrate PRN Reason: Protocol Last Admin: 05/13/17 09:32 Dose: Not Given Insulin Aspart (Novolog Vial Sliding Scale -) 1 vial SQ ACHS SHAN[facility] PRN Reason: Protocol Last Admin: 05/12/17 22:12 Dose: Not Given Metoprolol Tartrate (Lopressor -) 25 mg NGT BID [facility] Last Admin: 05/13/17 09:31 Dose: 25 mg Pantoprazole Sodium (Protonix Iv) 40 mg IVPUSH DAILY [facility] Senna (Senna Oral Solution -) 8.8 mg PO HS [facility] Stop: 05/20/17 09:59 ASSESSMENT AND PLAN: Acute Hypoxic Respiratory Failure Influenza A Pneumonia Septic Shock Acute Kidney Injury improving Lactic Acidosis resolved Anemia s/p PRBC transfusions Atrial Fibrillation CAD LV Diastolic Dysfunction Subdural Hematoma HTN Dementia Recent R Hip Fracture s/p surgery - antibiotics per ID - f/u repeat cultures - off pressors, maintain MAP >65 - lasix today - monitor urine output, creatinine - rate control - holding anticoagulation due to subdural hematomas - monitor H/H - hold sedation to assess mental status - spontaneous breathing trials as tolerated when mental status improved - enteral feeds - DVT/GI prophylaxis - continue ICU monitoring critical care time spent in reviewing chart, evaluating patient and formulating plan 35 min
[2017-05-13] MEDS ORDERED: HEMOQUE TEST 1 EACH EACH ONE (13:00)
[2017-05-13] MEDS ORDERED: ACETAMINOPHEN 325 MG TABLET (FP) PO PRN (13:01)
[2017-05-13] MEDS ORDERED: INSULIN (NOVOLOG) ASPART 100 UNITS/ML 10ML VIAL ONE (13:06)
[2017-05-13] MEDS: INSULIN SLIDING SCALE (NOVOLOG) 1 VIAL SQ SCH ×4 (13:06→21:39)
[2017-05-13] MEDS: ACETAMINOPHEN 650 MG/20.3 ML ORAL SOLUTION (CUPS) PO PRN ×2 (13:27→22:18)
--- NOTE | 2017-05-13 13:39 | PN ---
Progress Note, Physician History of Present Illness: continues to be intubated and sedated on pressors - Current Medication List Current Medications: Active Medications Acetaminophen (Tylenol Oral Solution -) 650 mg PO Q6H PRN PRN Reason: FEVER Last Admin: 05/13/17 13:27 Dose: 650 mg Acetaminophen (Tylenol -) 650 mg PO Q6H PRN PRN Reason: FEVER Amiodarone HCl (Cordarone -) 200 mg NGT BID [facility] Last Admin: 05/13/17 09:31 Dose: 200 mg Chlorhexidine Gluconate (Peridex -) 15 ml MM BID [facility] Last Admin: 05/13/17 09:30 Dose: 15 ml Docusate Sodium (Colace Liquid -) 100 mg NGT DAILY [facility] Stop: 05/20/17 09:59 Last Admin: 05/13/17 09:30 Dose: 100 mg Meropenem (Merrem (Restricted To Id) -) 500 mg in 10 mls @ 120 mls/hr IVPUSH BID [facility] Last Admin: 05/13/17 09:30 Dose: 120 mls/hr Norepinephrine Bitartrate 8, (000 mcg/ Dextrose) 500 mls @ 6.88 mls/hr IV ASDIR SHANDA; 0.03 MCG/KG/MIN PRN Reason: Protocol Last Titration: 05/13/17 09:20 Dose: 0 mcg/kg/min, 0 mls/hr Fentanyl 500 mcg/ Sodium (Chloride) 100 mls @ 8 mls/hr IVPB TITR [facility]; Titrate PRN Reason: Protocol Last Admin: 05/13/17 09:32 Dose: Not Given Insulin Aspart (Novolog Vial Sliding Scale -) 1 vial SQ ACHS [facility]AN[facility] PRN Reason: Protocol Last Admin: 05/13/17 13:06 Dose: 4 units Metoprolol Tartrate (Lopressor -) 25 mg NGT BID [facility] Last Admin: 05/13/17 09:31 Dose: 25 mg Pantoprazole Sodium (Protonix Iv) 40 mg IVPUSH DAILY [facility] Last Admin: 05/13/17 09:30 Dose: 40 mg Senna (Senna Oral Solution -) 8.8 mg PO HS [facility] Stop: 05/20/17 09:59 - Objective Vital Signs: Vital Signs Temperature 100.1 F H 05/13/17 10:00 Pulse Rate 74 05/13/17 12:00 Respiratory Rate 19 05/13/17 12:00 Blood Pressure 133/60 05/13/17 12:00 O2 Sat by Pulse Oximetry (%) 98 05/13/17 09:35 Constitutional: Yes: Other Cardiovascular: Yes: Regular Rate and Rhythm Respiratory: Yes: Intubated, Mechanically Ventilated Gastrointestinal: Yes: Normal Bowel Sounds, Soft Musculoskeletal: Yes: WNL Extremities: Yes: WNL Neurological: Yes: Other Psychiatric: Yes: Other Labs: CBC, BMP 05/13/17 05:30 05/13/17 05:20 INR, PTT INR 1.62 (0.82-1.09) H 05/09/17 05:13 Assessment/Plan Problem List - Problems (1) Sepsis Code(s): A41.9 - SEPSIS, UNSPECIFIED ORGANISM (2) REBEKA (acute kidney injury) Code(s): N17.9 - ACUTE KIDNEY FAILURE, UNSPECIFIED (3) Anemia Code(s): D64.9 - ANEMIA, UNSPECIFIED Qualifiers: Other causes of anemia: chronic disease, other (4) Respiratory failure Code(s): J96.90 - RESPIRATORY FAILURE, UNSP, UNSP W HYPOXIA OR HYPERCAPNIA wound infection influenza a afib with rapid rvr leukocytosis wbc high plan stopped vanco continue as per icu patient with fever await for recx report prognosis continues to be poor continue to monitor wbc if patient starts spiking fever will restart vanco cc time 40
--- NOTE | 2017-05-13 13:44 | PN ---
Progress Note, Physician History of Present Illness: patient doing same started spiking fevers cx send - Current Medication List Current Medications: Active Medications Acetaminophen (Tylenol Oral Solution -) 650 mg PO Q6H PRN PRN Reason: FEVER Last Admin: 05/13/17 13:27 Dose: 650 mg Acetaminophen (Tylenol -) 650 mg PO Q6H PRN PRN Reason: FEVER Amiodarone HCl (Cordarone -) 200 mg NGT BID [facility] Last Admin: 05/13/17 09:31 Dose: 200 mg Chlorhexidine Gluconate (Peridex -) 15 ml MM BID [facility] Last Admin: 05/13/17 09:30 Dose: 15 ml Docusate Sodium (Colace Liquid -) 100 mg NGT DAILY [facility] Stop: 05/20/17 09:59 Last Admin: 05/13/17 09:30 Dose: 100 mg Meropenem (Merrem (Restricted To Id) -) 500 mg in 10 mls @ 120 mls/hr IVPUSH BID [facility] Last Admin: 05/13/17 09:30 Dose: 120 mls/hr Norepinephrine Bitartrate 8, (000 mcg/ Dextrose) 500 mls @ 6.88 mls/hr IV ASDIR [facility]ANDA; 0.03 MCG/KG/MIN PRN Reason: Protocol Last Titration: 05/13/17 09:20 Dose: 0 mcg/kg/min, 0 mls/hr Fentanyl 500 mcg/ Sodium (Chloride) 100 mls @ 8 mls/hr IVPB TITR [facility]; Titrate PRN Reason: Protocol Last Admin: 05/13/17 09:32 Dose: Not Given Insulin Aspart (Novolog Vial Sliding Scale -) 1 vial SQ ACHS [facility]AN[facility] PRN Reason: Protocol Last Admin: 05/13/17 13:06 Dose: 4 units Metoprolol Tartrate (Lopressor -) 25 mg NGT BID [facility] Last Admin: 05/13/17 09:31 Dose: 25 mg Pantoprazole Sodium (Protonix Iv) 40 mg IVPUSH DAILY [facility] Last Admin: 05/13/17 09:30 Dose: 40 mg Senna (Senna Oral Solution -) 8.8 mg PO HS [facility] Stop: 05/20/17 09:59 - Objective Vital Signs: Vital Signs Temperature 100.1 F H 05/13/17 10:00 Pulse Rate 74 05/13/17 12:00 Respiratory Rate 19 05/13/17 12:00 Blood Pressure 133/60 05/13/17 12:00 O2 Sat by Pulse Oximetry (%) 98 05/13/17 09:35 Constitutional: Yes: Other Cardiovascular: Yes: Regular Rate and Rhythm Respiratory: Yes: Intubated, Mechanically Ventilated Gastrointestinal: Yes: Normal Bowel Sounds, Soft Musculoskeletal: Yes: WNL Extremities: Yes: WNL Neurological: Yes: Other Labs: CBC, BMP 05/13/17 05:30 05/13/17 05:20 INR, PTT INR 1.62 (0.82-1.09) H 05/09/17 05:13 Assessment/Plan Problem List - Problems (1) Sepsis Code(s): A41.9 - SEPSIS, UNSPECIFIED ORGANISM (2) REBEKA (acute kidney injury) Code(s): N17.9 - ACUTE KIDNEY FAILURE, UNSPECIFIED (3) Anemia Code(s): D64.9 - ANEMIA, UNSPECIFIED Qualifiers: Other causes of anemia: chronic disease, other (4) Respiratory failure Code(s): J96.90 - RESPIRATORY FAILURE, UNSP, UNSP W HYPOXIA OR HYPERCAPNIA wound infection influenza a afib with rapid rvr leukocytosis wbc high plan will start vanco continue as per icu patient with fever await for recx report prognosis continues to be poor continue to monitor wbc cc time 40
--- NOTE | 2017-05-13 14:56 | PN ---
Progress Note, Physician History of Present Illness: Pt seen and examined at bedside. He remains in the ICU. He remains intubated. - Current Medication List Current Medications: Active Medications Acetaminophen (Tylenol Oral Solution -) 650 mg PO Q6H PRN PRN Reason: FEVER Last Admin: 05/13/17 13:27 Dose: 650 mg Acetaminophen (Tylenol -) 650 mg PO Q6H PRN PRN Reason: FEVER Amiodarone HCl (Cordarone -) 200 mg NGT BID [facility] Last Admin: 05/13/17 09:31 Dose: 200 mg Chlorhexidine Gluconate (Peridex -) 15 ml MM BID [facility] Last Admin: 05/13/17 09:30 Dose: 15 ml Docusate Sodium (Colace Liquid -) 100 mg NGT DAILY [facility] Stop: 05/20/17 09:59 Last Admin: 05/13/17 09:30 Dose: 100 mg Meropenem (Merrem (Restricted To Id) -) 500 mg in 10 mls @ 120 mls/hr IVPUSH BID [facility] Last Admin: 05/13/17 09:30 Dose: 120 mls/hr Norepinephrine Bitartrate 8, (000 mcg/ Dextrose) 500 mls @ 6.88 mls/hr IV ASDIR SHANDA; 0.03 MCG/KG/MIN PRN Reason: Protocol Last Titration: 05/13/17 09:20 Dose: 0 mcg/kg/min, 0 mls/hr Fentanyl 500 mcg/ Sodium (Chloride) 100 mls @ 8 mls/hr IVPB TITR SHANDA; Titrate PRN Reason: Protocol Last Admin: 05/13/17 09:32 Dose: Not Given Vancomycin HCl 1,250 mg/ (Dextrose) 250 mls @ 125 mls/hr IVPB DAILY@1400 SHANDA PRN Reason: Protocol Insulin Aspart (Novolog Vial Sliding Scale -) 1 vial SQ ACHS SHANDA PRN Reason: Protocol Last Admin: 05/13/17 13:06 Dose: 4 units Metoprolol Tartrate (Lopressor -) 25 mg NGT BID [facility] Last Admin: 05/13/17 09:31 Dose: 25 mg Pantoprazole Sodium (Protonix Iv) 40 mg IVPUSH DAILY [facility] Last Admin: 05/13/17 09:30 Dose: 40 mg Senna (Senna Oral Solution -) 8.8 mg PO HS [facility] Stop: 05/20/17 09:59 - Objective Vital Signs: Vital Signs Temperature 100.1 F H 05/13/17 10:00 Pulse Rate 74 05/13/17 12:00 Respiratory Rate 28 H 05/13/17 14:15 Blood Pressure 133/60 05/13/17 12:00 O2 Sat by Pulse Oximetry (%) 98 05/13/17 09:35 Constitutional: Yes: Calm Eyes: Yes: Conjunctiva Clear HENT: Yes: Atraumatic Neck: Yes: Supple Cardiovascular: Yes: S1, S2 Respiratory: Yes: Mechanically Ventilated Gastrointestinal: Yes: Soft Genitourinary: Yes: Napier Present Musculoskeletal: Yes: Muscle Weakness Edema: Yes Edema: LUE: 1+, RUE: 1+, LLE: Trace, RLE: Trace Neurological: Yes: Lethargy Labs: CBC, BMP 05/13/17 05:30 05/13/17 05:20 INR, PTT INR 1.62 (0.82-1.09) H 05/09/17 05:13 - ....Imaging Chest X-ray: Report Reviewed Problem List - Problems (1) [id number] kidney injury Code(s): N17.9 - ACUTE KIDNEY FAILURE, UNSPECIFIED; N18.9 - CHRONIC KIDNEY DISEASE, UNSPECIFIED Qualifiers: Chronic kidney disease stage: stage 3 (moderate) (2) Influenza Code(s): J11.1 - FLU DUE TO UNIDENTIFIED INFLUENZA VIRUS W OTH RESP MANIFEST (3) Respiratory failure Code(s): J96.90 - RESPIRATORY FAILURE, UNSP, UNSP W HYPOXIA OR HYPERCAPNIA Qualifiers: Chronicity: acute Respiratory failure complication: hypoxia Qualified Code(s): J96.01 - Acute respiratory failure with hypoxia (4) Sepsis Code(s): A41.9 - SEPSIS, UNSPECIFIED ORGANISM Qualifiers: Sepsis type: sepsis due to unspecified organism Qualified Code(s): A41.9 - Sepsis, unspecified organism (5) REBEKA (acute kidney injury) Code(s): N17.9 - ACUTE KIDNEY FAILURE, UNSPECIFIED Assessment/Plan Current Medications Generic Name Dose Route Start Last Admin Trade Name Freq PRN Reason Stop Dose Admin Acetaminophen 650 mg 05/06/17 17:00 05/13/17 13:27 Tylenol Oral Solution - PO 650 mg Q6H PRN Administration FEVER Acetaminophen 650 mg 05/13/17 13:01 Tylenol - PO Q6H PRN FEVER Amiodarone HCl 200 mg 05/09/17 22:00 05/13/17 09:31 Cordarone - NGT 200 mg BID SHANDA Administration Chlorhexidine Gluconate 15 ml 05/07/17 22:00 05/13/17 09:30 Peridex - MM 15 ml BID SHANDA Administration Docusate Sodium 100 mg 05/13/17 10:00 05/13/17 09:30 Colace Liquid - NGT 05/20/17 09:59 100 mg DAILY SHANDA Administration Meropenem 500 mg in 10 mls @ 120 mls/hr 05/06/17 14:45 05/13/17 09:30 Merrem (Restricted To Id) - IVPUSH 120 mls/hr BID SHANDA Administration Norepinephrine Bitartrate 8, 500 mls @ 6.88 mls/hr 05/07/17 11:45 05/13/17 09 :20 000 mcg/ Dextrose IV 0 mcg/kg/min ASDIR SHANDA 0 mls/hr Protocol Titration 0.03 MCG/KG/MIN Fentanyl 500 mcg/ Sodium 100 mls @ 8 mls/hr 05/13/17 08:56 05/13/17 09:32 Chloride IVPB Not Given TITR [facility] Protocol Titrate Vancomycin HCl 1,250 mg/ 250 mls @ 125 mls/hr 05/13/17 14:00 Dextrose IVPB DAILY@1400 [facility] Protocol Insulin Aspart 1 vial 05/06/17 16:30 05/13/17 13:06 Novolog Vial Sliding Scale - SQ 4 units ACHS SHANDA Administration Protocol Metoprolol Tartrate 25 mg 05/13/17 10:00 05/13/17 09:31 Lopressor - NGT 25 mg BID SHANDA Administration Pantoprazole Sodium 40 mg 05/13/17 10:00 05/13/17 09:30 Protonix Iv IVPUSH 40 mg DAILY [facility] Administration Senna 8.8 mg 05/13/17 10:00 Senna Oral Solution - PO 05/20/17 09:59 HS [facility] Impression 1. REBEKA 2. hip fracture 3. htn 4. dementia 5. anemia 6. hypomagnesemia 7. iron deficiency 8. hyperkalemia 9. respiratory failure requiring intubation 10. sepsis Plan - cont with nepro - potassium is improved - cxr reviewed - likely REBEKA from sepsis and prerenal disease causing ATN - hold cesar - repeat labs in am - vent support Dr Rubi
[2017-05-13] MEDS: VANCOMYCIN 1,250 MG in DEXTROSE 5%-WATER - 250 ML IVPB SCH (17:50)
[2017-05-13] MEDS: SENNOSIDES 8.8 MG/5 ML BULK BOTTLE PO SCH ×2 (17:55→21:25)
[2017-05-13] MEDS: NOREPINEPHRINE BITARTRATE 8,000 MCG in DEXTROSE 5%-WATER - 492 ML IV SCH (17:55)
[2017-05-13 18:56] LABS: HEMATOCRIT 24.2 % (35.4-49); HEMOGLOBIN 7.8 GM/dL (11.7-16.9); MCH 30.2 pg (25.7-33.7); MCHC 32.2 g/dl (32.0-35.9); MEAN CELL VOLUME 93.8 fl (80-96); PLATELET COUNT 215 K/MM3 (134-434); RBC 2.58 M/mm3 (4.00-5.60); RDW 17.4 % (11.9-15.9); WHITE BLOOD COUNT 13.9 K/mm3 (4.0-10.0)
--- NOTE | 2017-05-13 19:14 | PN ---
Progress Note (short form) - Note Progress Note: Patient with large melanotic stool. VSS. Repeat CBC with hgb of 7.8. Will order 1 unit prbc with goal of hgb >8 per cardiology. Will trend H/H tomorrow morning.
[2017-05-14 05:47] LABS: BASO % 0.2 % (0-2.0); EOS % 0.5 % (0-4.5); HEMATOCRIT 27.4 % (35.4-49); HEMOGLOBIN 9.1 GM/dL (11.7-16.9); LYMPH % 2.5 % (8-40); MCH 30.4 pg (25.7-33.7); MCHC 33.1 g/dl (32.0-35.9); MEAN CELL VOLUME 91.7 fl (80-96); MONO % 5.4 % (3.8-10.2); NEUT % 91.4 % (42.8-82.8); PLATELET COUNT 228 K/MM3 (134-434); RBC 2.99 M/mm3 (4.00-5.60); RDW 16.2 % (11.9-15.9); WHITE BLOOD COUNT 18.8 K/mm3 (4.0-10.0)
[2017-05-14 06:06] LABS: ALBUMIN 1.3 g/dl (3.4-5.0); ANION GAP 7 (8-16); BLOOD UREA NITROGEN 37 mg/dL (7-18); CALCIUM 7.1 mg/dL (8.5-10.1); CHLORIDE 103 mmol/L (98-107); CO2 28 mmol/L (21-32); GLUCOSE,RANDOM 215 mg/dL (74-106); MAGNESIUM 2.1 mg/dL (1.8-2.4); POTASSIUM 4.3 mmol/L (3.5-5.1); SODIUM 138 mmol/L (136-145)
[2017-05-14 06:10] LABS: ALK PHOS 278 U/L (45-117); BILIRUBIN,TOTAL 0.9 mg/dL (0.2-1.0); CREATININE 0.9 mg/dL (0.7-1.3); PHOSPHOROUS 2.3 mg/dL (2.5-4.9); SGOT/AST 57 U/L (15-37); SGPT/ALT 35 U/L (12-78); TOT PROT 4.9 g/dl (6.4-8.2)
[2017-05-14] MEDS: INSULIN SLIDING SCALE (NOVOLOG) 1 VIAL SQ SCH ×4 (06:12→21:42)
--- NOTE | 2017-05-14 07:46 | PN ---
Physical Exam: SUBJECTIVE: Patient seen and examined. Still having intermittent fevers. T max- 100.6 at midnight 05/14/17. Also had an episode of melanotic stools x1 last night and x1 early this am. Received 2u PRBCs yesterday and has had stable H&H spost transfusion. Intubated off sedation since yesterday- RR-16, TV-450, 40%, . UUnable to tolerate CPAP yesterday and this am. Mental status not improved off sedation. OBJECTIVE: Vital Signs Period Temp Pulse Resp BP Sys/[place] Pulse Ox Last 24 Hr 97 F-100.8 F 61-103 14-28 113-143/41-69 98-100 Vital Signs Temp 97 F L 05/14/17 06:00 Pulse 71 05/14/17 06:00 Resp 18 05/14/17 07:00 BP 114/41 05/14/17 06:00 Pulse Ox 100 05/13/17 20:26 Intake & Output 05/11/17 05/12/17 05/13/17 05/14/17 23:59 23:59 23:59 23:59 Intake Total 3489.1 2710 1870 600 Output Total 1400 1350 775 200 Balance 2089.1 1360 1095 400 Weight 65.816 kg 68.084 kg 68.991 kg 64.07 kg GENERAL:Intubated off sedation- RR-16, TV-450, 40%, 10/16 EYES: Round reactive bilaterally ENT: NGT, ETT, moist mucous membranes, RIJ in place. LUNGS: Bilateral fine creps HEART: Regular rate and rhythm, S1, S2, 2/6 systolic murmur RUSB, non-radiating ABDOMEN: normoactive bowel sounds EXTREMITIES: bilateral UE edema NEUROLOGICAL: Intubated off sedation, not responding to pain. Pupils bilaterally reactive, no facial droop, no lateralizing signs (spontaneous movement of RUE and LUE. Reduced muscle tone globally. PSYCH: Cannot assess Lines: ETT, NGT, RIJ, Napier, SCDs, Heel pads CBC, BMP 05/14/17 05:10 05/14/17 05:10 Laboratory Results - last 24 hr 05/13/17 05/13/17 05/13/17 05:30 13:04 18:40 WBC 14.0 H 13.9 H RBC 2.63 L 2.58 L Hgb 7.9 L 7.8 L Hct 24.6 L 24.2 L MCV 93.6 93.8 MCH 30.1 30.2 MCHC 32.2 32.2 RDW 17.3 H 17.4 H Plt Count 177 215 D MPV 8.4 9.0 Neutrophils % 89.0 H Lymphocytes % 3.0 L D Monocytes % 6.9 Eosinophils % 0.8 Basophils % 0.3 Sodium Potassium Chloride Carbon Dioxide Anion Gap BUN Creatinine Creat Clearance w eGFR POC Glucometer [phone] Random Glucose Calcium Phosphorus Magnesium Total Bilirubin AST ALT Alkaline Phosphatase Total Protein Albumin Blood Type Antibody Screen Crossmatch 05/13/17 05/14/17 05/14/17 20:00 05:10 05:10 WBC 18.8 H D RBC 2.99 L Hgb 9.1 L D Hct 27.4 L MCV 91.7 MCH 30.4 MCHC 33.1 RDW 16.2 H Plt Count 228 MPV 9.0 Neutrophils % 91.4 H Lymphocytes % 2.5 L Monocytes % 5.4 Eosinophils % 0.5 Basophils % 0.2 Sodium 138 Potassium 4.3 Chloride 103 Carbon Dioxide 28 Anion Gap 7 L BUN 37 H Creatinine 0.9 Creat Clearance w eGFR > 60 POC Glucometer Random Glucose 215 H D Calcium 7.1 L Phosphorus 2.3 L Magnesium 2.1 Total Bilirubin 0.9 D AST 57 H ALT 35 Alkaline Phosphatase 278 H Total Protein 4.9 L Albumin 1.3 L Blood Type B POSITIVE Antibody Screen Negative Crossmatch See Detail CXR- report shows improved aeration Active Medications Generic Name Dose Route Start Last Admin Trade Name Marylou PRN Reason Stop Dose Admin Acetaminophen 650 mg 05/06/17 17:00 05/13/17 22:18 Tylenol Oral Solution - PO 650 mg Q6H PRN Administration FEVER Amiodarone HCl 200 mg 05/09/17 22:00 05/13/17 21:33 Cordarone - NGT 200 mg BID SHANDA Administration Chlorhexidine Gluconate 15 ml 05/07/17 22:00 05/13/17 21:34 Peridex - MM 15 ml BID SHANDA Administration Docusate Sodium 100 mg 05/13/17 10:00 05/13/17 09:30 Colace Liquid - NGT 05/20/17 09:59 100 mg DAILY SHANDA Administration Meropenem 500 mg in 10 mls @ 120 mls/hr 05/06/17 14:45 05/13/17 21:33 Merrem (Restricted To Id) - IVPUSH 120 mls/hr BID SHANDA Administration Norepinephrine Bitartrate 8, 500 mls @ 6.88 mls/hr 05/07/17 11:45 05/13/17 17 :55 000 mcg/ Dextrose IV Not Given ASDIR SHANDA Protocol 0.03 MCG/KG/MIN Fentanyl 500 mcg/ Sodium 100 mls @ 8 mls/hr 05/13/17 08:56 05/13/17 09:32 Chloride IVPB Not Given TITR SHANDA Protocol Titrate Vancomycin HCl 1,250 mg/ 250 mls @ 125 mls/hr 05/13/17 14:00 05/13/17 17:50 Dextrose IVPB 125 mls/hr DAILY@1400 SHANDA Administration Protocol Sodium Phosphate 30 mm/ Sodium 260 mls @ 62.5 mls/hr 05/14/17 07:22 Chloride IVPB 05/14/17 11:31 ONCE ONE Insulin Aspart 1 vial 05/06/17 16:30 05/14/17 06:12 Novolog Vial Sliding Scale - SQ 4 units ACHS SHANDA Administration Protocol Metoprolol Tartrate 25 mg 05/13/17 10:00 05/13/17 21:33 Lopressor - NGT 25 mg BID SHANDA Administration Pantoprazole Sodium 40 mg 05/13/17 10:00 05/13/17 09:30 Protonix Iv IVPUSH 40 mg DAILY SHANDA Administration Senna 8.8 mg 05/13/17 10:00 05/13/17 21:25 Senna Oral Solution - PO 05/20/17 09:59 Not Given HS [facility] ASSESSMENT/PLAN: 86M with pmhx of dementia, metabolic encephalopathy, sent from [facility] for hypoxia in the 70's Pt was intubated admitted to ICU for acute respiratory failure. ID: Septic shock 2/2 to PNA and flu ID-Dr. Jose Kumari-1g Q48H Completed tamiflu Still on meropenem off Levophed x 2 days off Fentanyl since yesterday Pending cultures- urine and sputum, blood- negative-x24hrs Duplex US of bilateral UE and LE (not on AC)- no evidence of DVT R/O sinusitis ( xray of sinuses)- no portable xray available for sinuses per radiology so could not be done Cardio: Atrial fibrillation with RVR Hold AC in the setting of Anemia & subdural bleed Cardiology on board, Dr. Mays Amiodarone 200mg NGT Digoxin @0.25 Pulm: Acute respiratory failure Intubated/off [id number], TV-450, 40%, 7/5 Off Levophed, off Fentanyl Continue ventilatory support- for weaning trials as tolerated Did not tolerate CPAP yesterday or this am Did not tolerate SIMV this am Neuro: AMS Hx of Subdural bleeds Intubated off sedation, not responsive to pain, or commands off sedation Evaluated by neurosurgery, No recommendation for intervention at this time. Hemonc: Anemia - GI bleed yesterday s/p 2u PRBCs iv protonix 40mg daily stopped Protonix drip started Monitor H/H- CBC- noon today Transfuse as needed Renal: REBEKA, likely prerenal vs ATN from sepsis Cr-0.9-improved Monitor Urine lytes, BUN, Cr. Endo: Hyperglycemia BGM ACHS ISS ACHS FEN/GI: Monitor BMPs Tube feeds, via NGT- nepro@[email or web address]. Protonix drip Contact Dr Herrera PPx: Protonix drip started SCDs, no ac in the setting of anemia and subdural bleeds Dispo: Monitor in ICU Discuss goals of care with family Sindhu on board Visit type - Emergency Visit Emergency Visit: Yes ED Registration Date: 05/05/17 Care time: The patient presented to the Emergency Department on the above date and was hospitalized for further evaluation of their emergent condition. - New Patient This patient is new to me today: No - Critical Care Critical Care patient: Yes Total Critical Care Time (in minutes): 38 Critical Care Statement: The care of this patient involved high complexity decision making to prevent further life threatening deterioration of the patient 's condition and/or to evaluate & treat vital organ system(s) failure or risk of failure. - Discharge Referral Referred to [facility] No
[2017-05-14] MEDS ORDERED: PT OWN MED DRAWER 7, Y5N ONE ×5 (07:56→21:22)
[2017-05-14] MEDS: METOPROLOL TARTRATE 25 MG TABLET (FP) NGT SCH ×2 (09:07→21:37)
[2017-05-14] MEDS: AMIODARONE HCL 200 MG TABLET (FP) NGT SCH ×2 (09:07→21:37)
[2017-05-14] MEDS: MEROPENEM 500 MG PUSH 500 MG/10 ML DISP.SYRIN IVPUSH SCH ×2 (09:07→21:37)
[2017-05-14] MEDS: PANTOPRAZOLE SODIUM 40 MG VIAL IVPUSH SCH (09:08)
[2017-05-14] MEDS: CHLORHEXIDINE GLUCONATE 0.12% 15ML CUP MM SCH ×2 (09:08→21:37)
[2017-05-14] MEDS: FENTANYL INJECTION 500 MCG in SODIUM CHLORIDE 90 ML IVPB SCH (09:09)
[2017-05-14] MEDS ORDERED: PANTOPRAZOLE SODIUM 80 MG in SODIUM CHLORIDE 100 ML IVPB SCH (09:15)
--- NOTE | 2017-05-14 09:54 | PN ---
Progress Note, Physician - Current Medication List Current Medications: Active Medications Acetaminophen (Tylenol Oral Solution -) 650 mg PO Q6H PRN PRN Reason: FEVER Last Admin: 05/13/17 22:18 Dose: 650 mg Amiodarone HCl (Cordarone -) 200 mg NGT BID [facility] Last Admin: 05/14/17 09:07 Dose: 200 mg Chlorhexidine Gluconate (Peridex -) 15 ml MM BID [facility] Last Admin: 05/14/17 09:08 Dose: 15 ml Docusate Sodium (Colace Liquid -) 100 mg NGT DAILY [facility] Stop: 05/20/17 09:59 Last Admin: 05/13/17 09:30 Dose: 100 mg Meropenem (Merrem (Restricted To Id) -) 500 mg in 10 mls @ 120 mls/hr IVPUSH BID [facility] Last Admin: 05/14/17 09:07 Dose: 120 mls/hr Vancomycin HCl 1,250 mg/ (Dextrose) 250 mls @ 125 mls/hr IVPB DAILY@1400 SHANDA PRN Reason: Protocol Last Admin: 05/13/17 17:50 Dose: 125 mls/hr Sodium Phosphate 30 mm/ Sodium (Chloride) 260 mls @ 65 mls/hr IVPB ONCE ONE PRN Reason: 30 MM/4 HR Stop: 05/14/17 13:59 Last Admin: 05/14/17 09:08 Dose: 65 mls/hr Pantoprazole Sodium 160 mg/ (Dextrose) 290 mls @ 14.5 mls/hr IVPB Q20H [facility] Insulin Aspart (Novolog Vial Sliding Scale -) 1 vial SQ ACHS SHANDA PRN Reason: Protocol Last Admin: 05/14/17 06:12 Dose: 4 units Metoprolol Tartrate (Lopressor -) 25 mg NGT BID [facility] Last Admin: 05/14/17 09:07 Dose: 25 mg Senna (Senna Oral Solution -) 8.8 mg PO HS [facility] Stop: 05/20/17 09:59 Last Admin: 05/13/17 21:25 Dose: Not Given - Objective Vital Signs: Vital Signs Temperature 97.3 F L 05/14/17 08:00 Pulse Rate 75 05/14/17 09:00 Respiratory Rate 20 05/14/17 09:00 Blood Pressure 128/49 05/14/17 08:00 O2 Sat by Pulse Oximetry (%) 100 05/14/17 09:00 Cardiovascular: Yes: Tachycardia, S1, S2 Respiratory: Yes: Mechanically Ventilated Gastrointestinal: Yes: Normal Bowel Sounds, Soft Edema: No Neurological: Yes: Lethargy, Unresponsive Labs: CBC, BMP 05/14/17 05:10 05/14/17 05:10 INR, PTT INR 1.62 (0.82-1.09) H 05/09/17 05:13 Problem List - Problems (1) Respiratory failure Code(s): J96.90 - RESPIRATORY FAILURE, UNSP, UNSP W HYPOXIA OR HYPERCAPNIA Qualifiers: Chronicity: acute Respiratory failure complication: hypoxia Qualified Code(s): J96.01 - Acute respiratory failure with hypoxia (2) Sepsis Code(s): A41.9 - SEPSIS, UNSPECIFIED ORGANISM Qualifiers: Sepsis type: sepsis due to unspecified organism Qualified Code(s): A41.9 - Sepsis, unspecified organism (3) REBEKA (acute kidney injury) Code(s): N17.9 - ACUTE KIDNEY FAILURE, UNSPECIFIED (4) Anemia Code(s): D64.9 - ANEMIA, UNSPECIFIED Qualifiers: Other causes of anemia: chronic disease, other (5) Subdural hematoma Code(s): I62.00 - NONTRAUMATIC SUBDURAL HEMORRHAGE, UNSPECIFIED (6) Influenza Code(s): J11.1 - FLU DUE TO UNIDENTIFIED INFLUENZA VIRUS W OTH RESP MANIFEST Assessment/Plan - Problems (1) Sepsis Assessment/Plan: cultures pending WBC still elevated pressors turned off respiratory failure intubated - off sedation cpap trial lactic acid trending down tamiflu,for influenza A meropenem leukocytosis - ID On board Microbiology 05/06/17 02:18 Urine - Urine - Catheterized Urine Culture - Final NO GROWTH OBTAINED 05/05/17 22:00 Nasopharyngeal Swab Influenza Types A,B Antigen (MAGDA) - Final 05/05/17 22:00 Nasopharyngeal Swab - Final 05/05/17 22:20 Blood - Peripheral Venous Blood Culture - Preliminary NO GROWTH OBTAINED AFTER 48 HOURS, INCUBATION TO CONTINUE FOR 3 DAYS. 05/05/17 22:20 Blood - Peripheral Venous Blood Culture - Preliminary NO GROWTH OBTAINED AFTER 48 HOURS, INCUBATION TO CONTINUE FOR 3 DAYS. Code(s): A41.9 - SEPSIS, UNSPECIFIED ORGANISM Qualifiers: Sepsis type: sepsis due to unspecified organism Qualified Code(s): A41.9 - Sepsis, unspecified organism (2) REBEKA (acute kidney injury) Assessment/Plan: on presors will monitor creatinine- trending down now 1.0 from 2.0 hold ACEI renal sono noted Code(s): N17.9 - ACUTE KIDNEY FAILURE, UNSPECIFIED (3) Anemia Assessment/Plan: iron panel gi evaluation noted ppi iv s/p 3 units of prbc maintain H/h > 8 guaicic negative Laboratory Tests 05/13/17 05/14/17 18:40 05:10 Hgb 7.8 L 9.1 L D Code(s): D64.9 - ANEMIA, UNSPECIFIED Qualifiers: Other causes of anemia: chronic disease, other (4) Respiratory failure Assessment/Plan: cpap trial sedation off Code(s): J96.90 - RESPIRATORY FAILURE, UNSP, UNSP W HYPOXIA OR HYPERCAPNIA Qualifiers: Chronicity: acute Respiratory failure complication: hypoxia Qualified Code(s): J96.01 - Acute respiratory failure with hypoxia (5) Persistent atrial fibrillation with rapid ventricular response Assessment/Plan: got digoxin now started on amiodarone via ngt tube no AC given h/o of chronic SDH Code(s): I48.1 - PERSISTENT ATRIAL FIBRILLATION (6) Electrolyte abnormality Assessment/Plan: phosphorus repleted feeding via NGT Code(s): E87.8 - OTH DISORDERS OF ELECTROLYTE AND FLUID BALANCE, NEC
[2017-05-14] MEDS: DOCUSATE NA 100 MG/10 ML UNIT-DOSE CUPS NGT SCH (10:00)
[2017-05-14] MEDS ORDERED: SODIUM PHOSPHATE - 30 MM in SODIUM CHLORIDE 250 ML IVPB ONE (10:00)
[2017-05-14] MEDS: PANTOPRAZOLE SODIUM 160 MG in DEXTROSE 5%-WATER - 290 ML IVPB SCH (10:48)
--- NOTE | 2017-05-14 11:32 | PN ---
Teaching Attending Note Name of Resident: Linda Rose ATTENDING PHYSICIAN STATEMENT I saw and evaluated the patient. I reviewed the resident's note and discussed the case with the resident. I agree with the resident's findings and plan as documented. SUBJECTIVE: Pt seen and examined in the ICU. Remains intubated, poorly responsive off sedation. Vented on volume assist control with 40% FiO2. Did not tolerate CPAP/ PS trials earlier due to tachypnea. Low grade fevers overnight. Episodes of dark stools, transfused 1 unit PRBC. OBJECTIVE: Last Vital Signs Temp Pulse Resp BP Pulse Ox 99.1 F 62 20 106/45 100 05/14/17 10:00 05/14/17 10:00 05/14/17 10:00 05/14/17 10:00 05/14/17 09:00 Intake & Output 05/11/17 05/12/17 05/13/17 05/14/17 23:59 23:59 23:59 23:59 Intake Total 3489.1 2710 1870 600 Output Total 1400 1350 775 200 Balance 2089.1 1360 1095 400 Weight 65.816 kg 68.084 kg 68.991 kg 64.07 kg Gen: intubated, poorly responsive Heart: RRR Lung: bilateral rhonchi Abd: soft, nontender Ext: UE edema CBC, BMP 05/14/17 05:10 05/14/17 05:10 Active Medications Acetaminophen (Tylenol Oral Solution -) 650 mg PO Q6H PRN PRN Reason: FEVER Last Admin: 05/13/17 22:18 Dose: 650 mg Amiodarone HCl (Cordarone -) 200 mg NGT BID [facility] Last Admin: 05/14/17 09:07 Dose: 200 mg Chlorhexidine Gluconate (Peridex -) 15 ml MM BID [facility] Last Admin: 05/14/17 09:08 Dose: 15 ml Docusate Sodium (Colace Liquid -) 100 mg NGT DAILY [facility] Stop: 05/20/17 09:59 Last Admin: 05/14/17 10:00 Dose: Not Given Meropenem (Merrem (Restricted To Id) -) 500 mg in 10 mls @ 120 mls/hr IVPUSH BID [facility] Last Admin: 05/14/17 09:07 Dose: 120 mls/hr Vancomycin HCl 1,250 mg/ (Dextrose) 250 mls @ 125 mls/hr IVPB DAILY@1400 SHANDA PRN Reason: Protocol Last Admin: 05/13/17 17:50 Dose: 125 mls/hr Sodium Phosphate 30 mm/ Sodium (Chloride) 260 mls @ 65 mls/hr IVPB ONCE ONE PRN Reason: 30 MM/4 HR Stop: 05/14/17 13:59 Last Admin: 05/14/17 09:08 Dose: 65 mls/hr Pantoprazole Sodium 160 mg/ (Dextrose) 290 mls @ 14.5 mls/hr IVPB Q20H [facility] Last Admin: 05/14/17 10:48 Dose: 14.5 mls/hr Insulin Aspart (Novolog Vial Sliding Scale -) 1 vial SQ ACHS SHANDA PRN Reason: Protocol Last Admin: 05/14/17 10:56 Dose: Not Given Metoprolol Tartrate (Lopressor -) 25 mg NGT BID [facility] Last Admin: 05/14/17 09:07 Dose: 25 mg Senna (Senna Oral Solution -) 8.8 mg PO HS [facility] Stop: 05/20/17 09:59 Last Admin: 05/13/17 21:25 Dose: Not Given ASSESSMENT AND PLAN: Acute Hypoxic Respiratory Failure Influenza A Pneumonia Septic Shock Acute Kidney Injury improving Lactic Acidosis resolved Anemia s/p PRBC transfusions Atrial Fibrillation CAD LV Diastolic Dysfunction Subdural Hematoma HTN Dementia Recent R Hip Fracture s/p surgery - antibiotics per ID - f/u repeat cultures - off pressors, maintain MAP >65 - monitor urine output, creatinine - rate control - holding anticoagulation due to subdural hematomas and now possible GI bleed - monitor H/H - transfuse as needed - protonix - GI f/u - hold sedation to assess mental status - will need to clarify baseline mental status - spontaneous breathing trials as tolerated, placed on SIMV - enteral feeds - DVT/GI prophylaxis - continue ICU monitoring critical care time spent in reviewing chart, evaluating patient and formulating plan 35 min
--- NOTE | 2017-05-14 11:46 | PN ---
Progress Note, Physician History of Present Illness: Remains sedated. "melanotic" stools reported this am. Hypocoagulable state - Current Medication List Current Medications: Active Medications Acetaminophen (Tylenol Oral Solution -) 650 mg PO Q6H PRN PRN Reason: FEVER Last Admin: 05/13/17 22:18 Dose: 650 mg Amiodarone HCl (Cordarone -) 200 mg NGT BID [facility] Last Admin: 05/14/17 09:07 Dose: 200 mg Chlorhexidine Gluconate (Peridex -) 15 ml MM BID [facility] Last Admin: 05/14/17 09:08 Dose: 15 ml Docusate Sodium (Colace Liquid -) 100 mg NGT DAILY [facility] Stop: 05/20/17 09:59 Last Admin: 05/14/17 10:00 Dose: Not Given Meropenem (Merrem (Restricted To Id) -) 500 mg in 10 mls @ 120 mls/hr IVPUSH BID [facility] Last Admin: 05/14/17 09:07 Dose: 120 mls/hr Vancomycin HCl 1,250 mg/ (Dextrose) 250 mls @ 125 mls/hr IVPB DAILY@1400 SHANDA PRN Reason: Protocol Last Admin: 05/13/17 17:50 Dose: 125 mls/hr Sodium Phosphate 30 mm/ Sodium (Chloride) 260 mls @ 65 mls/hr IVPB ONCE ONE PRN Reason: 30 MM/4 HR Stop: 05/14/17 13:59 Last Admin: 05/14/17 09:08 Dose: 65 mls/hr Pantoprazole Sodium 160 mg/ (Dextrose) 290 mls @ 14.5 mls/hr IVPB Q20H [facility] Last Admin: 05/14/17 10:48 Dose: 14.5 mls/hr Insulin Aspart (Novolog Vial Sliding Scale -) 1 vial SQ ACHS SHANDA PRN Reason: Protocol Last Admin: 05/14/17 10:56 Dose: Not Given Metoprolol Tartrate (Lopressor -) 25 mg NGT BID [facility] Last Admin: 05/14/17 09:07 Dose: 25 mg Senna (Senna Oral Solution -) 8.8 mg PO HS [facility] Stop: 05/20/17 09:59 Last Admin: 05/13/17 21:25 Dose: Not Given - Objective Vital Signs: Vital Signs Temperature 99.1 F 05/14/17 10:00 Pulse Rate 62 05/14/17 10:00 Respiratory Rate 20 05/14/17 11:35 Blood Pressure 106/45 05/14/17 10:00 O2 Sat by Pulse Oximetry (%) 100 05/14/17 09:00 Labs: CBC, BMP 05/14/17 05:10 05/14/17 05:10 INR, PTT INR 1.62 (0.82-1.09) H 05/09/17 05:13 Problem List - Problems (1) Influenza Code(s): J11.1 - FLU DUE TO UNIDENTIFIED INFLUENZA VIRUS W OTH RESP MANIFEST (2) Respiratory failure Code(s): J96.90 - RESPIRATORY FAILURE, UNSP, UNSP W HYPOXIA OR HYPERCAPNIA Qualifiers: Chronicity: acute Respiratory failure complication: hypoxia Qualified Code(s): J96.01 - Acute respiratory failure with hypoxia (3) Sepsis Code(s): A41.9 - SEPSIS, UNSPECIFIED ORGANISM Qualifiers: Sepsis type: sepsis due to unspecified organism Qualified Code(s): A41.9 - Sepsis, unspecified organism (4) REBEKA (acute kidney injury) Code(s): N17.9 - ACUTE KIDNEY FAILURE, UNSPECIFIED (5) Anemia Code(s): D64.9 - ANEMIA, UNSPECIFIED Qualifiers: Other causes of anemia: chronic disease, other (6) B12 deficiency Code(s): E53.8 - DEFICIENCY OF OTHER SPECIFIED B GROUP VITAMINS (7) Status post hip surgery Code(s): Z98.890 - OTHER SPECIFIED POSTPROCEDURAL STATES Assessment/Plan An 86 yo, critically ill male with significant macrocytic anemia and no signs of overt GI bleeding keep Hgb above 7 g/dl PPI IV Carafate via NG (flash NG after each use) Daily CBC and ongoing monitoring for melena, or NGT evidence of bleeding Correct hypocoagulable state NPO after midnight EGD in AM
--- NOTE | 2017-05-14 12:55 | PN ---
Progress Note, Physician History of Present Illness: Pt seen and examined at bedside. He remains in the ICU. He remains intubated. - Current Medication List Current Medications: Active Medications Acetaminophen (Tylenol Oral Solution -) 650 mg PO Q6H PRN PRN Reason: FEVER Last Admin: 05/13/17 22:18 Dose: 650 mg Amiodarone HCl (Cordarone -) 200 mg NGT BID [facility] Last Admin: 05/14/17 09:07 Dose: 200 mg Chlorhexidine Gluconate (Peridex -) 15 ml MM BID [facility] Last Admin: 05/14/17 09:08 Dose: 15 ml Docusate Sodium (Colace Liquid -) 100 mg NGT DAILY [facility] Stop: 05/20/17 09:59 Last Admin: 05/14/17 10:00 Dose: Not Given Meropenem (Merrem (Restricted To Id) -) 500 mg in 10 mls @ 120 mls/hr IVPUSH BID [facility] Last Admin: 05/14/17 09:07 Dose: 120 mls/hr Vancomycin HCl 1,250 mg/ (Dextrose) 250 mls @ 125 mls/hr IVPB DAILY@1400 SHANDA PRN Reason: Protocol Last Admin: 05/13/17 17:50 Dose: 125 mls/hr Sodium Phosphate 30 mm/ Sodium (Chloride) 260 mls @ 65 mls/hr IVPB ONCE ONE PRN Reason: 30 MM/4 HR Stop: 05/14/17 13:59 Last Admin: 05/14/17 09:08 Dose: 65 mls/hr Pantoprazole Sodium 160 mg/ (Dextrose) 290 mls @ 14.5 mls/hr IVPB Q20H [facility] Last Admin: 05/14/17 10:48 Dose: 14.5 mls/hr Insulin Aspart (Novolog Vial Sliding Scale -) 1 vial SQ ACHS SHANDA PRN Reason: Protocol Last Admin: 05/14/17 10:56 Dose: Not Given Metoprolol Tartrate (Lopressor -) 25 mg NGT BID [facility] Last Admin: 05/14/17 09:07 Dose: 25 mg Phytonadione (Aqua Mephyton Injection -) 10 mg IVPB ONCE ONE Stop: 05/15/17 06:01 Senna (Senna Oral Solution -) 8.8 mg PO HS [facility] Stop: 05/20/17 09:59 Last Admin: 05/13/17 21:25 Dose: Not Given - Objective Vital Signs: Vital Signs Temperature 98.7 F 05/14/17 12:00 Pulse Rate 62 05/14/17 12:00 Respiratory Rate 20 05/14/17 12:00 Blood Pressure 120/46 05/14/17 12:00 O2 Sat by Pulse Oximetry (%) 100 05/14/17 09:00 Constitutional: Yes: Calm Eyes: Yes: Conjunctiva Clear HENT: Yes: Atraumatic Neck: Yes: Supple Cardiovascular: Yes: S1, S2 Respiratory: Yes: Mechanically Ventilated Genitourinary: Yes: [place] Present Musculoskeletal: Yes: Muscle Weakness Edema: No Neurological: Yes: Lethargy Labs: CBC, BMP 05/14/17 05:10 05/14/17 05:10 INR, PTT INR 1.62 (0.82-1.09) H 05/09/17 05:13 - ....Imaging Chest X-ray: Report Reviewed Problem List - Problems (1) Seokj-au-nspiffu kidney injury Code(s): N17.9 - ACUTE KIDNEY FAILURE, UNSPECIFIED; N18.9 - CHRONIC KIDNEY DISEASE, UNSPECIFIED Qualifiers: Chronic kidney disease stage: stage 3 (moderate) (2) Influenza Code(s): J11.1 - FLU DUE TO UNIDENTIFIED INFLUENZA VIRUS W OTH RESP MANIFEST (3) Respiratory failure Code(s): J96.90 - RESPIRATORY FAILURE, UNSP, UNSP W HYPOXIA OR HYPERCAPNIA Qualifiers: Chronicity: acute Respiratory failure complication: hypoxia Qualified Code(s): J96.01 - Acute respiratory failure with hypoxia (4) Sepsis Code(s): A41.9 - SEPSIS, UNSPECIFIED ORGANISM Qualifiers: Sepsis type: sepsis due to unspecified organism Qualified Code(s): A41.9 - Sepsis, unspecified organism (5) REBEKA (acute kidney injury) Code(s): N17.9 - ACUTE KIDNEY FAILURE, UNSPECIFIED Assessment/Plan Current Medications Generic Name Dose Route Start Last Admin Trade Name Freq PRN Reason Stop Dose Admin Acetaminophen 650 mg 05/06/17 17:00 05/13/17 22:18 Tylenol Oral Solution - PO 650 mg Q6H PRN Administration FEVER Amiodarone HCl 200 mg 05/09/17 22:00 05/14/17 09:07 Cordarone - NGT 200 mg BID SHANDA Administration Chlorhexidine Gluconate 15 ml 05/07/17 22:00 05/14/17 09:08 Peridex - MM 15 ml BID SHANDA Administration Docusate Sodium 100 mg 05/13/17 10:00 05/14/17 10:00 Colace Liquid - NGT 05/20/17 09:59 Not Given DAILY SHANDA Meropenem 500 mg in 10 mls @ 120 mls/hr 05/06/17 14:45 05/14/17 09:07 Merrem (Restricted To Id) - IVPUSH 120 mls/hr BID SHANDA Administration Vancomycin HCl 1,250 mg/ 250 mls @ 125 mls/hr 05/13/17 14:00 05/13/17 17:50 Dextrose IVPB 125 mls/hr DAILY@1400 SHANDA Administration Protocol Sodium Phosphate 30 mm/ Sodium 260 mls @ 65 mls/hr 05/14/17 10:00 05/14/17 09 :08 Chloride IVPB 05/14/17 13:59 65 mls/hr ONCE ONE Administration 30 MM/4 HR Pantoprazole Sodium 160 mg/ 290 mls @ 14.5 mls/hr 05/14/17 09:30 05/14/17 10: 48 Dextrose IVPB 14.5 mls/hr Q20H SHANDA Administration Insulin Aspart 1 vial 05/06/17 16:30 05/14/17 10:56 Novolog Vial Sliding Scale - SQ Not Given ACHS [facility] Protocol Metoprolol Tartrate 25 mg 05/13/17 10:00 05/14/17 09:07 Lopressor - NGT 25 mg BID SHANDA Administration Phytonadione 10 mg 05/15/17 06:00 Aqua Mephyton Injection - IVPB 05/15/17 06:01 ONCE ONE Senna 8.8 mg 05/13/17 10:00 05/13/17 21:25 Senna Oral Solution - PO 05/20/17 09:59 Not Given HS [facility] Impression 1. REBEKA 2. hip fracture 3. htn 4. dementia 5. anemia 6. hypomagnesemia 7. iron deficiency 8. hyperkalemia 9. respiratory failure requiring intubation 10. sepsis Plan - renal function has been stable - potassium is improved - likely REBEKA from sepsis and prerenal disease causing ATN - hold cesar - vent support - will follow PRN Dr Rubi
[2017-05-14 12:58] LABS: BASO % 0.3 % (0-2.0); EOS % 0.8 % (0-4.5); HEMATOCRIT 25.5 % (35.4-49); HEMOGLOBIN 8.2 GM/dL (11.7-16.9); LYMPH % 3.2 % (8-40); MCH 29.6 pg (25.7-33.7); MCHC 32.2 g/dl (32.0-35.9); MEAN CELL VOLUME 91.9 fl (80-96); MEAN PLT VOLUME 8.8 fl (7.5-11.1); MONO % 5.4 % (3.8-10.2); NEUT % 90.3 % (42.8-82.8); PLATELET COUNT 212 K/MM3 (134-434); RBC 2.78 M/mm3 (4.00-5.60); RDW 16.3 % (11.9-15.9); WHITE BLOOD COUNT 16.3 K/mm3 (4.0-10.0)
[2017-05-14 13:15] LABS: INR 1.62 (0.82-1.09); PROTHROMBIN TIME (PATIENT) 18.3 SEC (9.98-11.88)
[2017-05-14 13:18] LABS: ACTIVATED PTT 30.6 SECONDS (26.9-34.4)
--- NOTE | 2017-05-14 15:07 | PN ---
Progress Note, Physician History of Present Illness: Sedated and intubated, currently in SR. Planned for EGD in AM. - Current Medication List Current Medications: Active Medications Acetaminophen (Tylenol Oral Solution -) 650 mg PO Q6H PRN PRN Reason: FEVER Last Admin: 05/13/17 22:18 Dose: 650 mg Amiodarone HCl (Cordarone -) 200 mg NGT BID [facility] Last Admin: 05/14/17 09:07 Dose: 200 mg Chlorhexidine Gluconate (Peridex -) 15 ml MM BID [facility] Last Admin: 05/14/17 09:08 Dose: 15 ml Docusate Sodium (Colace Liquid -) 100 mg NGT DAILY [facility] Stop: 05/20/17 09:59 Last Admin: 05/14/17 10:00 Dose: Not Given Meropenem (Merrem (Restricted To Id) -) 500 mg in 10 mls @ 120 mls/hr IVPUSH BID [facility] Last Admin: 05/14/17 09:07 Dose: 120 mls/hr Vancomycin HCl 1,250 mg/ (Dextrose) 250 mls @ 125 mls/hr IVPB DAILY@1400 SHANDA PRN Reason: Protocol Last Admin: 05/13/17 17:50 Dose: 125 mls/hr Pantoprazole Sodium 160 mg/ (Dextrose) 290 mls @ 14.5 mls/hr IVPB Q20H [facility] Last Admin: 05/14/17 10:48 Dose: 14.5 mls/hr Insulin Aspart (Novolog Vial Sliding Scale -) 1 vial SQ ACHS SHANDA PRN Reason: Protocol Last Admin: 05/14/17 10:56 Dose: Not Given Metoprolol Tartrate (Lopressor -) 25 mg NGT BID [facility] Last Admin: 05/14/17 09:07 Dose: 25 mg Phytonadione (Aqua Mephyton Injection -) 10 mg IVPB ONCE ONE Stop: 05/15/17 06:01 Senna (Senna Oral Solution -) 8.8 mg PO HS [facility] Stop: 05/20/17 09:59 Last Admin: 05/13/17 21:25 Dose: Not Given - Objective Vital Signs: Vital Signs Temperature 99.1 F 05/14/17 14:00 Pulse Rate 70 05/14/17 14:00 Respiratory Rate 16 05/14/17 14:34 Blood Pressure 98/49 05/14/17 14:00 O2 Sat by Pulse Oximetry (%) 100 05/14/17 09:00 Constitutional: Yes: No Distress, Calm, Thin Neck: Yes: Supple Cardiovascular: Yes: Regular Rate and Rhythm Respiratory: Yes: Intubated, Mechanically Ventilated, Rhonchi Gastrointestinal: Yes: Soft, Hypoactive Bowel Sounds Edema: No Labs: CBC, BMP 05/14/17 12:45 05/14/17 05:10 INR, PTT INR 1.62 (0.82-1.09) H 05/14/17 12:45 - ....Imaging Chest X-ray: Report Reviewed (Improved aeration) EKG: Report Reviewed (PAF->SR) Problem List - Problems (1) Influenza Code(s): J11.1 - FLU DUE TO UNIDENTIFIED INFLUENZA VIRUS W OTH RESP MANIFEST (2) Respiratory failure Code(s): J96.90 - RESPIRATORY FAILURE, UNSP, UNSP W HYPOXIA OR HYPERCAPNIA Qualifiers: Chronicity: acute Respiratory failure complication: hypoxia Qualified Code(s): J96.01 - Acute respiratory failure with hypoxia (3) Subdural hematoma Code(s): I62.00 - NONTRAUMATIC SUBDURAL HEMORRHAGE, UNSPECIFIED (4) Pneumonia Code(s): J18.9 - PNEUMONIA, UNSPECIFIED ORGANISM Qualifiers: Pneumonia type: due to unspecified organism Laterality: left Lung location: lower lobe of lung Qualified Code(s): J18.1 - Lobar pneumonia, unspecified organism (5) [id number]-[id number] kidney injury Code(s): N17.9 - ACUTE KIDNEY FAILURE, UNSPECIFIED; N18.9 - CHRONIC KIDNEY DISEASE, UNSPECIFIED Qualifiers: Chronic kidney disease stage: stage 3 (moderate) (6) Paroxysmal atrial fibrillation Code(s): I48.0 - PAROXYSMAL ATRIAL FIBRILLATION Assessment/Plan 1. Acute hypoxic respiratory failure, Influenza A, pneumonia and septic shock with lactic acidosis 2. Paroxysmal atrial fibrillation [id number] not on anticoagulation due to history of SDH 2. CAD with evidence of demand ischemic injury, angina pectoris 3. Diastolic LV dysfunction with class 0-I NYHA classification LV failure 4. Profound anemia, source to be determined, post transfusion 5. Acute on chronic kidney disease improving 6. Hyperglycemia/DM 7. History of HTN, currently hypotensive/septic shock 8. Hyperkalemia 9. Chronic SDH 10. Dementia 11. Recent R Hip Fracture s/p surgery PLAN: 1. Antibiotics and completed Tamiflu course 2. Weaned off pressors 3. Monitor Hgb and transfuse as needed maintaining Hgb equal or > 8.0 4. SBT, enteral feeds 5. Given Digoxin IV one dose earlier. Further rate control with IV beta alessandra as BP tolerates 6. Amiodarone 200 qd, Lopressor 25 bid via NGT 7. DVT and GI prophylaxis 8. May proceed with EGD from CV standpoint
[2017-05-14] MEDS ORDERED: VANCOMYCIN 1,250 MG in SODIUM CHLORIDE 250 ML IVPB SCH (16:08)
[2017-05-14] MEDS ORDERED: INSULIN (NOVOLOG) ASPART 100 UNITS/ML 10ML VIAL ONE (16:09)
--- NOTE | 2017-05-14 16:09 | PN ---
Progress Note, Physician History of Present Illness: continues to be intubated and sedated minimal brain response had vikash gi going to do endoscopy patient not at all responsive - Current Medication List Current Medications: Active Medications Acetaminophen (Tylenol Oral Solution -) 650 mg PO Q6H PRN PRN Reason: FEVER Last Admin: 05/13/17 22:18 Dose: 650 mg Amiodarone HCl (Cordarone -) 200 mg NGT BID [facility] Last Admin: 05/14/17 09:07 Dose: 200 mg Chlorhexidine Gluconate (Peridex -) 15 ml MM BID [facility] Last Admin: 05/14/17 09:08 Dose: 15 ml Docusate Sodium (Colace Liquid -) 100 mg NGT DAILY [facility] Stop: 05/20/17 09:59 Last Admin: 05/14/17 10:00 Dose: Not Given Meropenem (Merrem (Restricted To Id) -) 500 mg in 10 mls @ 120 mls/hr IVPUSH BID [facility] Last Admin: 05/14/17 09:07 Dose: 120 mls/hr Vancomycin HCl 1,250 mg/ (Dextrose) 250 mls @ 125 mls/hr IVPB DAILY@1400 SHANDA PRN Reason: Protocol Last Admin: 05/13/17 17:50 Dose: 125 mls/hr Pantoprazole Sodium 160 mg/ (Dextrose) 290 mls @ 14.5 mls/hr IVPB Q20H [facility] Last Admin: 05/14/17 10:48 Dose: 14.5 mls/hr Insulin Aspart (Novolog Vial Sliding Scale -) 1 vial SQ ACHS SHANDA PRN Reason: Protocol Last Admin: 05/14/17 10:56 Dose: Not Given Metoprolol Tartrate (Lopressor -) 25 mg NGT BID [facility] Last Admin: 05/14/17 09:07 Dose: 25 mg Phytonadione (Aqua Mephyton Injection -) 10 mg IVPB ONCE ONE Stop: 05/15/17 06:01 Senna (Senna Oral Solution -) 8.8 mg PO HS [facility] Stop: 05/20/17 09:59 Last Admin: 05/13/17 21:25 Dose: Not Given - Objective Vital Signs: Vital Signs Temperature 99.9 F H 05/14/17 16:00 Pulse Rate 67 05/14/17 16:00 Respiratory Rate 19 05/14/17 16:00 Blood Pressure 109/41 01/31/18 16:00 O2 Sat by Pulse Oximetry (%) 100 05/14/17 09:00 Constitutional: Yes: Other Cardiovascular: Yes: Regular Rate and Rhythm Respiratory: Yes: Intubated, Mechanically Ventilated Gastrointestinal: Yes: Normal Bowel Sounds, Soft Musculoskeletal: Yes: WNL Extremities: Yes: WNL Labs: CBC, BMP 05/14/17 12:45 05/14/17 05:10 INR, PTT INR 1.62 (0.82-1.09) H 05/14/17 12:45 Assessment/Plan Problem List - Problems (1) Sepsis Code(s): A41.9 - SEPSIS, UNSPECIFIED ORGANISM (2) REBEKA (acute kidney injury) Code(s): N17.9 - ACUTE KIDNEY FAILURE, UNSPECIFIED (3) Anemia Code(s): D64.9 - ANEMIA, UNSPECIFIED Qualifiers: Other causes of anemia: chronic disease, other (4) Respiratory failure Code(s): J96.90 - RESPIRATORY FAILURE, UNSP, UNSP W HYPOXIA OR HYPERCAPNIA wound infection influenza a afib with rapid rvr leukocytosis wbc high plan continue abx wbc trending down rest continue mgmt as per icu will see endoscopy finding rest as per icu cc time 40
[2017-05-14] MEDS: VANCOMYCIN 1,250 MG in DEXTROSE 5%-WATER - 250 ML IVPB SCH (16:14)
[2017-05-14] MEDS: ACETAMINOPHEN 650 MG/20.3 ML ORAL SOLUTION (CUPS) PO PRN (16:17)
[2017-05-14] MEDS: VANCOMYCIN 1,250 MG in SODIUM CHLORIDE 250 ML IVPB SCH (16:18)
[2017-05-14] MEDS ORDERED: NOREPINEPHRINE BITARTRATE 4 MG/4 ML ML IV ONE (16:57)
[2017-05-14] MEDS: NOREPINEPHRINE BITARTRATE 16,000 MCG in DEXTROSE 5%-WATER - 984 ML IV SCH (17:00)
[2017-05-14 18:49] LABS: BASO % 0.3 % (0-2.0); HEMATOCRIT 26.6 % (35.4-49); HEMOGLOBIN 8.7 GM/dL (11.7-16.9); LYMPH % 2.9 % (8-40); MCH 29.9 pg (25.7-33.7); MCHC 32.6 g/dl (32.0-35.9); MEAN CELL VOLUME 91.7 fl (80-96); MEAN PLT VOLUME 9.1 fl (7.5-11.1); MONO % 5.8 % (3.8-10.2); PLATELET COUNT 270 K/MM3 (134-434); RDW 16.4 % (11.9-15.9); WHITE BLOOD COUNT 18.5 K/mm3 (4.0-10.0)
[2017-05-14] MEDS: SENNOSIDES 8.8 MG/5 ML BULK BOTTLE PO SCH (21:37)
[2017-05-15] MEDS: PANTOPRAZOLE SODIUM 160 MG in DEXTROSE 5%-WATER - 290 ML IVPB SCH (05:26)
[2017-05-15] MEDS ORDERED: PHYTONADIONE 10 MG/1 ML AMP IVPB ONE (06:00)
[2017-05-15] MEDS: INSULIN SLIDING SCALE (NOVOLOG) 1 VIAL SQ SCH ×4 (06:05→22:10)
[2017-05-15 06:24] LABS: BASO % 0.1 % (0-2.0); EOS % 0.9 % (0-4.5); HEMATOCRIT 26.4 % (35.4-49); HEMOGLOBIN 8.7 GM/dL (11.7-16.9); LYMPH % 2.3 % (8-40); MCH 30.4 pg (25.7-33.7); MCHC 33.1 g/dl (32.0-35.9); MEAN PLT VOLUME 9.3 fl (7.5-11.1); MONO % 5.5 % (3.8-10.2); NEUT % 91.2 % (42.8-82.8); PLATELET COUNT 313 K/MM3 (134-434); RBC 2.87 M/mm3 (4.00-5.60); RDW 16.2 % (11.9-15.9); WHITE BLOOD COUNT 18.5 K/mm3 (4.0-10.0)
[2017-05-15 06:39] LABS: INR 1.46 (0.82-1.09); PROTHROMBIN TIME (PATIENT) 16.5 SEC (9.98-11.88)
[2017-05-15 06:42] LABS: ACTIVATED PTT 30.2 SECONDS (26.9-34.4)
[2017-05-15 06:43] LABS: ALBUMIN 1.4 g/dl (3.4-5.0); ANION GAP 9 (8-16); BLOOD UREA NITROGEN 35 mg/dL (7-18); CALCIUM 7.2 mg/dL (8.5-10.1); CHLORIDE 102 mmol/L (98-107); CO2 27 mmol/L (21-32); CREATININE 0.9 mg/dL (0.7-1.3); GLUCOSE,RANDOM 170 mg/dL (74-106); MAGNESIUM 1.9 mg/dL (1.8-2.4); PHOSPHOROUS 3.2 mg/dL (2.5-4.9); POTASSIUM 4.3 mmol/L (3.5-5.1); SGOT/AST 72 U/L (15-37); SGPT/ALT 49 U/L (12-78); SODIUM 138 mmol/L (136-145)
[2017-05-15 06:44] LABS: ALK PHOS 246 U/L (45-117)
[2017-05-15] MEDS ORDERED: PT OWN MED DRAWER 7, Y5N ONE ×3 (07:26→22:00)
--- NOTE | 2017-05-15 08:29 | PN ---
Progress Note, Physician History of Present Illness: rapid afib--rate controlled - Current Medication List Current Medications: Active Medications Acetaminophen (Tylenol Oral Solution -) 650 mg PO Q6H PRN PRN Reason: FEVER Last Admin: 05/14/17 16:17 Dose: 650 mg Amiodarone HCl (Cordarone -) 200 mg NGT BID [facility] Last Admin: 05/14/17 21:37 Dose: 200 mg Chlorhexidine Gluconate (Peridex -) 15 ml MM BID [facility] Last Admin: 05/14/17 21:37 Dose: 15 ml Docusate Sodium (Colace Liquid -) 100 mg NGT DAILY [facility] Stop: 05/20/17 09:59 Last Admin: 05/14/17 10:00 Dose: Not Given Meropenem (Merrem (Restricted To Id) -) 500 mg in 10 mls @ 120 mls/hr IVPUSH BID [facility] Last Admin: 05/14/17 21:37 Dose: 120 mls/hr Pantoprazole Sodium 160 mg/ (Dextrose) 290 mls @ 14.5 mls/hr IVPB Q20H [facility] Last Admin: 05/15/17 05:26 Dose: 14.5 mls/hr Vancomycin HCl 1,250 mg/ (Sodium Chloride) 250 mls @ 125 mls/hr IVPB DAILY@ 1400 SHANDA PRN Reason: Protocol Last Admin: 05/14/17 16:18 Dose: Not Given Norepinephrine Bitartrate 16, (000 mcg/ Dextrose) 1,000 mls @ 18.75 mls/hr IV TITR SHANDA; 5 MCG/MIN PRN Reason: Protocol Last Admin: 05/14/17 17:00 Dose: 5 mcg/min, 18.75 mls/hr Insulin Aspart (Novolog Vial Sliding Scale -) 1 vial SQ ACHS SHANDA PRN Reason: Protocol Last Admin: 05/15/17 06:05 Dose: 2 units Metoprolol Tartrate (Lopressor -) 25 mg NGT BID [facility] Last Admin: 05/14/17 21:37 Dose: Not Given Senna (Senna Oral Solution -) 8.8 mg PO HS [facility] Stop: 05/20/17 09:59 Last Admin: 05/14/17 21:37 Dose: Not Given - Objective Vital Signs: Vital Signs Temperature 98.4 F 05/15/17 08:00 Pulse Rate 63 05/15/17 08:00 Respiratory Rate 17 05/15/17 08:00 Blood Pressure 116/47 05/15/17 08:00 O2 Sat by Pulse Oximetry (%) 100 05/15/17 08:00 Cardiovascular: Yes: S1, S2 Respiratory: Yes: Mechanically Ventilated Gastrointestinal: Yes: Normal Bowel Sounds, Soft Neurological: Yes: Unresponsive Labs: CBC, BMP 05/15/17 05:05 05/15/17 05:05 INR, PTT INR 1.46 (0.82-1.09) H 05/15/17 05:05 Problem List - Problems (1) Respiratory failure Code(s): J96.90 - RESPIRATORY FAILURE, UNSP, UNSP W HYPOXIA OR HYPERCAPNIA Qualifiers: Chronicity: acute Respiratory failure complication: hypoxia Qualified Code(s): J96.01 - Acute respiratory failure with hypoxia (2) Sepsis Code(s): A41.9 - SEPSIS, UNSPECIFIED ORGANISM Qualifiers: Sepsis type: sepsis due to unspecified organism Qualified Code(s): A41.9 - Sepsis, unspecified organism (3) REBEKA (acute kidney injury) Code(s): N17.9 - ACUTE KIDNEY FAILURE, UNSPECIFIED (4) Anemia Code(s): D64.9 - ANEMIA, UNSPECIFIED Qualifiers: Other causes of anemia: chronic disease, other (5) Subdural hematoma Code(s): I62.00 - NONTRAUMATIC SUBDURAL HEMORRHAGE, UNSPECIFIED (6) Influenza Code(s): J11.1 - FLU DUE TO UNIDENTIFIED INFLUENZA VIRUS W OTH RESP MANIFEST Assessment/Plan - Problems (1) Sepsis Assessment/Plan: cultures pending WBC still elevated pressors turned off respiratory failure intubated - off sedation cpap trial lactic acid trending down tamiflu,for influenza A meropenem leukocytosis - ID On board Microbiology 05/06/17 02:18 Urine - Urine - Catheterized Urine Culture - Final NO GROWTH OBTAINED 05/05/17 22:00 Nasopharyngeal Swab Influenza Types A,B Antigen (MAGDA) - Final 05/05/17 22:00 Nasopharyngeal Swab - Final 05/05/17 22:20 Blood - Peripheral Venous Blood Culture - Preliminary NO GROWTH OBTAINED AFTER 48 HOURS, INCUBATION TO CONTINUE FOR 3 DAYS. 05/05/17 22:20 Blood - Peripheral Venous Blood Culture - Preliminary NO GROWTH OBTAINED AFTER 48 HOURS, INCUBATION TO CONTINUE FOR 3 DAYS. Code(s): A41.9 - SEPSIS, UNSPECIFIED ORGANISM Qualifiers: Sepsis type: sepsis due to unspecified organism Qualified Code(s): A41.9 - Sepsis, unspecified organism (2) REBEKA (acute kidney injury) Assessment/Plan: on pressers will monitor creatinine- trending down now 1.0 from 2.0 hold ACEI renal sono noted Code(s): N17.9 - ACUTE KIDNEY FAILURE, UNSPECIFIED (3) Anemia Assessment/Plan: iron panel gi evaluation noted ppi iv s/p prbc maintain H/h > 8 for egd today Code(s): D64.9 - ANEMIA, UNSPECIFIED Qualifiers: Other causes of anemia: chronic disease, other (4) Respiratory failure Assessment/Plan: cpap trial sedation off Code(s): J96.90 - RESPIRATORY FAILURE, UNSP, UNSP W HYPOXIA OR HYPERCAPNIA Qualifiers: Chronicity: acute Respiratory failure complication: hypoxia Qualified Code(s): J96.01 - Acute respiratory failure with hypoxia (5) Persistent atrial fibrillation with rapid ventricular response Assessment/Plan: got digoxin now started on amiodarone via ngt tube no AC given h/o of chronic SDH Code(s): I48.1 - PERSISTENT ATRIAL FIBRILLATION (6) Electrolyte abnormality Assessment/Plan: phosphorus repleted feeding via NGT--on hold--egd Code(s): E87.8 - OTH DISORDERS OF ELECTROLYTE AND FLUID BALANCE, NEC
[2017-05-15] MEDS: DOCUSATE NA 100 MG/10 ML UNIT-DOSE CUPS NGT SCH (09:01)
[2017-05-15] MEDS: AMIODARONE HCL 200 MG TABLET (FP) NGT SCH ×2 (09:01→22:10)
[2017-05-15] MEDS: CHLORHEXIDINE GLUCONATE 0.12% 15ML CUP MM SCH ×2 (09:02→22:10)
[2017-05-15] MEDS: METOPROLOL TARTRATE 25 MG TABLET (FP) NGT SCH ×2 (09:02→22:05)
[2017-05-15] MEDS: MEROPENEM 500 MG PUSH 500 MG/10 ML DISP.SYRIN IVPUSH SCH ×2 (09:02→22:10)
--- NOTE | 2017-05-15 10:40 | PN ---
Progress Note, Physician History of Present Illness: Unarousable on vent, currently in SR. Placed back on Levophed gtt. - Current Medication List Current Medications: Active Medications Acetaminophen (Tylenol Oral Solution -) 650 mg PO Q6H PRN PRN Reason: FEVER Last Admin: 05/14/17 16:17 Dose: 650 mg Amiodarone HCl (Cordarone -) 200 mg NGT BID [facility] Last Admin: 05/15/17 09:01 Dose: 200 mg Chlorhexidine Gluconate (Peridex -) 15 ml MM BID [facility] Last Admin: 05/15/17 09:02 Dose: 15 ml Docusate Sodium (Colace Liquid -) 100 mg NGT DAILY [facility] Stop: 05/20/17 09:59 Last Admin: 05/15/17 09:01 Dose: Not Given Meropenem (Merrem (Restricted To Id) -) 500 mg in 10 mls @ 120 mls/hr IVPUSH BID [facility] Last Admin: 05/15/17 09:02 Dose: 120 mls/hr Pantoprazole Sodium 160 mg/ (Dextrose) 290 mls @ 14.5 mls/hr IVPB Q20H [facility] Last Admin: 05/15/17 05:26 Dose: 14.5 mls/hr Vancomycin HCl 1,250 mg/ (Sodium Chloride) 250 mls @ 125 mls/hr IVPB DAILY@ 1400 SHANDA PRN Reason: Protocol Last Admin: 05/14/17 16:18 Dose: Not Given Norepinephrine Bitartrate 16, (000 mcg/ Dextrose) 1,000 mls @ 18.75 mls/hr IV TITR SHANDA; 5 MCG/MIN PRN Reason: Protocol Last Admin: 05/14/17 17:00 Dose: 5 mcg/min, 18.75 mls/hr Insulin Aspart (Novolog Vial Sliding Scale -) 1 vial SQ ACHS SHANDA PRN Reason: Protocol Last Admin: 05/15/17 06:05 Dose: 2 units Metoprolol Tartrate (Lopressor -) 25 mg NGT BID [facility] Last Admin: 05/15/17 09:02 Dose: Not Given Senna (Senna Oral Solution -) 8.8 mg PO HS [facility] Stop: 05/20/17 09:59 Last Admin: 05/14/17 21:37 Dose: Not Given - Objective Vital Signs: Vital Signs Temperature 99.2 F 05/15/17 10:00 Pulse Rate 67 05/15/17 10:00 Respiratory Rate 19 05/15/17 10:00 Blood Pressure 111/42 05/15/17 10:00 O2 Sat by Pulse Oximetry (%) 100 05/15/17 08:15 Cardiovascular: Yes: Regular Rate and Rhythm Respiratory: Yes: Intubated, Mechanically Ventilated, Rhonchi Gastrointestinal: Yes: Soft, Hypoactive Bowel Sounds Edema: No Labs: CBC, BMP 05/15/17 05:05 05/15/17 05:05 INR, PTT INR 1.46 (0.82-1.09) H 05/15/17 05:05 - ....Imaging Chest X-ray: Report Reviewed (Progressive right base infiltrate) EKG: Report Reviewed (Tele: SR) Problem List - Problems (1) Influenza Code(s): J11.1 - FLU DUE TO UNIDENTIFIED INFLUENZA VIRUS W OTH RESP MANIFEST (2) Respiratory failure Code(s): J96.90 - RESPIRATORY FAILURE, UNSP, UNSP W HYPOXIA OR HYPERCAPNIA Qualifiers: Chronicity: acute Respiratory failure complication: hypoxia Qualified Code(s): J96.01 - Acute respiratory failure with hypoxia (3) Subdural hematoma Code(s): I62.00 - NONTRAUMATIC SUBDURAL HEMORRHAGE, UNSPECIFIED (4) Pneumonia Code(s): J18.9 - PNEUMONIA, UNSPECIFIED ORGANISM Qualifiers: Pneumonia type: due to unspecified organism Laterality: left Lung location: lower lobe of lung Qualified Code(s): J18.1 - Lobar pneumonia, unspecified organism (5) Hoxsa-yf-uiwuogy kidney injury Code(s): N17.9 - ACUTE KIDNEY FAILURE, UNSPECIFIED; N18.9 - CHRONIC KIDNEY DISEASE, UNSPECIFIED Qualifiers: Chronic kidney disease stage: stage 3 (moderate) (6) Paroxysmal atrial fibrillation Code(s): I48.0 - PAROXYSMAL ATRIAL FIBRILLATION Assessment/Plan 1. Acute hypoxic respiratory failure, Influenza A, pneumonia and septic shock with lactic acidosis 2. Paroxysmal atrial fibrillation [id number] not on anticoagulation due to history of SDH 2. CAD with evidence of demand ischemic injury, angina pectoris 3. Diastolic LV dysfunction with class 0-I NYHA classification LV failure 4. Profound anemia, source to be determined, post transfusion 5. Acute on chronic kidney disease improving 6. Hyperglycemia/DM 7. History of HTN, currently hypotensive/septic shock 8. Hyperkalemia 9. Chronic SDH 10. Dementia 11. Recent R Hip Fracture s/p surgery PLAN: 1. Complete antibiotics and completed Tamiflu course 2. Wean Levophed gtt for MAP>65 mmHg 3. Monitor Hgb and transfuse as needed maintaining Hgb equal or > 8.0 4. SBT, enteral feeds as tolerated 5. Amiodarone 200 bid via NGT, Lopressor held pending hemodynamic stability 6. DVT and GI prophylaxis 7. Await EGD once hemodynamics stabilize
--- NOTE | 2017-05-15 11:53 | PN ---
Teaching Attending Note Name of Resident: Linda Rose ATTENDING PHYSICIAN STATEMENT I saw and evaluated the patient. I reviewed the resident's note and discussed the case with the resident. I agree with the resident's findings and plan as documented. SUBJECTIVE: Pt seen and examined in the ICU. Remains intubated, unresponsive off sedation. Back on levophed gtt. Still with bloody stools. OBJECTIVE: Last Vital Signs Temp Pulse Resp BP Pulse Ox 99.2 F 67 20 111/42 100 05/15/17 10:00 05/15/17 10:00 05/15/17 10:51 05/15/17 10:00 05/15/17 08:15 Intake & Output 05/12/17 05/13/17 05/14/17 05/15/17 23:59 23:59 23:59 23:59 Intake Total 2710 1870 1816 1310 Output Total 1350 775 750 450 Balance 1360 1095 1066 860 Weight 68.084 kg 68.991 kg 64.07 kg 65.374 kg Gen: intubated, unresponsive, tachypneic Heart: RRR Lung: scattered rhonchi Abd: soft, nontender Ext: + edema CBC, BMP 05/15/17 05:05 05/15/17 05:05 Active Medications Acetaminophen (Tylenol Oral Solution -) 650 mg PO Q6H PRN PRN Reason: FEVER Last Admin: 05/14/17 16:17 Dose: 650 mg Amiodarone HCl (Cordarone -) 200 mg NGT BID [facility] Last Admin: 05/15/17 09:01 Dose: 200 mg Chlorhexidine Gluconate (Peridex -) 15 ml MM BID [facility] Last Admin: 05/15/17 09:02 Dose: 15 ml Docusate Sodium (Colace Liquid -) 100 mg NGT DAILY [facility] Stop: 05/20/17 09:59 Last Admin: 05/15/17 09:01 Dose: Not Given Meropenem (Merrem (Restricted To Id) -) 500 mg in 10 mls @ 120 mls/hr IVPUSH BID [facility] Last Admin: 05/15/17 09:02 Dose: 120 mls/hr Pantoprazole Sodium 160 mg/ (Dextrose) 290 mls @ 14.5 mls/hr IVPB Q20H [facility] Last Admin: 05/15/17 05:26 Dose: 14.5 mls/hr Vancomycin HCl 1,250 mg/ (Sodium Chloride) 250 mls @ 125 mls/hr IVPB DAILY@ 1400 SHANDA PRN Reason: Protocol Last Admin: 05/14/17 16:18 Dose: Not Given Norepinephrine Bitartrate 16, (000 mcg/ Dextrose) 1,000 mls @ 18.75 mls/hr IV TITR [facility]ANDA; 5 MCG/MIN PRN Reason: Protocol Last Admin: 05/14/17 17:00 Dose: 5 mcg/min, 18.75 mls/hr Insulin Aspart (Novolog Vial Sliding Scale -) 1 vial SQ ACHS [facility]DA PRN Reason: Protocol Last Admin: 05/15/17 11:09 Dose: 2 units Metoprolol Tartrate (Lopressor -) 25 mg NGT BID [facility] Last Admin: 05/15/17 09:02 Dose: Not Given Senna (Senna Oral Solution -) 8.8 mg PO HS [facility] Stop: 05/20/17 09:59 Last Admin: 05/14/17 21:37 Dose: Not Given ASSESSMENT AND PLAN: Acute Hypoxic Respiratory Failure Influenza A Pneumonia Septic Shock Acute Kidney Injury improving Lactic Acidosis resolved Anemia s/p PRBC transfusions Atrial Fibrillation CAD LV Diastolic Dysfunction Subdural Hematoma HTN Dementia Recent R Hip Fracture s/p surgery - antibiotics per ID - f/u repeat cultures - off pressors, maintain MAP >65 - monitor urine output, creatinine - rate control - holding anticoagulation due to subdural hematomas and now possible GI bleed - monitor H/H - transfuse as needed - protonix - hold sedation to assess mental status - spontaneous breathing trials as tolerated - enteral feeds - DVT/GI prophylaxis - continue ICU monitoring - poor overall prognosis for meaninful recovery, continue discussions regarding goals of care critical care time spent in reviewing chart, evaluating patient and formulating plan 35 min
--- NOTE | 2017-05-15 12:13 | PN ---
Physical Exam: SUBJECTIVE: Patient seen and examined. Restarted on levophed yesterday @5mcgs. Has had 2 episodes of bloody stool since last night. Second one this morning had more fresh blood. Conversation about EGD still on going and will depend on outcome of family meeting targeting goals of care, considering that the patient is still AMS and nonresponsive after 3 days off sedation, and the procedure may not improve his outcome. If family wants to go ahead, it may be done at beside tomorrow. Intubated, back on pressors, but off sedation since 05/13/17- Vent settings [id number], TV-450, 40%, 01/16. Unable to tolerate SIMV yesterday due to tachypnea. Mental status not improved off sedation. Now with yeast-like organism in urine culture and vent culture. OBJECTIVE: Vital Signs Period Temp Pulse Resp BP Sys/[place] Pulse Ox Last 24 Hr 98.4 F-99.9 F 63-81 16-30 98-150/39-63 100-100 Vital Signs Temp 98.5 F 05/15/17 12:00 Pulse 71 05/15/17 12:00 Resp 20 05/15/17 12:00 BP 137/56 05/15/17 12:00 Pulse Ox 100 05/15/17 08:15 Intake & Output 05/12/17 05/13/17 05/14/17 05/15/17 23:59 23:59 23:59 23:59 Intake Total 2710 1870 1816 1310 Output Total 1350 775 750 450 Balance 1360 1095 1066 860 Weight 68.084 kg 68.991 kg 64.07 kg 65.374 kg Intake & Output 05/14/17 05/15/17 05/15/17 23:59 11:59 23:59 Intake Total 1216 1310 Output Total 550 450 Balance 666 860 Weight 65.374 kg Intake: IV 116 426 Abx 30 Levophed - 16,000 Mcg In 228 D5w - 984 ml @ 5 MCG/MIN 18.75 mls/hr IV TITR SHANDA Rx#:[id number] Levophed - 8,000 Mcg In 0 D5w - 492 ml @ 0.03 MCG/ KG/MIN 6.88 mls/hr IV ASDIR SHANDA Rx#:[id number] PROTONIX DRIP 116 168 Sublimaze Injection - 500 0 Mcg In Normal Saline - 90 ml @ Titrate 8 mls/hr IVPB TITR SHANDA Rx#: [id number] IVPB 500 Oral 0 Tube Feeding 480 200 Fresh Frozen Plasma 634 Tube Irrigant 120 50 Output: Urine 550 450 Napier 550 450 Other: Voiding Method Indwelling Catheter Indwelling Catheter Bowel Movement Yes Yes: LARGE AND BLOODY # Bowel Movements 1 1 Weight Measurement Method Built in [facility] GENERAL:Intubated off sedation- RR-16, TV-450, 40%, 10/ EYES: Round reactive bilaterally ENT: OGT, ETT, moist mucous membranes, RIJ in place. LUNGS: creps >L, reduced BS on R HEART: Regular rate and rhythm, S1, S2, ABDOMEN: normoactive bowel sounds EXTREMITIES: bilateral UE edema NEUROLOGICAL: Intubated off sedation, not responding to pain. Pupils bilaterally reactive, no facial droop. Reduced muscle tone globally. PSYCH: Cannot assess Lines: ETT, OGT, RIJ-05/05/17, Napier, SCDs, Heel pads CBC, BMP 05/15/17 05:05 05/15/17 05:05 Laboratory Results - last 24 hr 05/13/17 05/13/17 05/14/17 17:50 21:38 05:17 WBC RBC Hgb Hct MCV MCH MCHC RDW Plt Count MPV Neutrophils % Lymphocytes % Monocytes % Eosinophils % Basophils % PT with INR INR PTT (Actin FS) Sodium Potassium Chloride Carbon Dioxide Anion Gap BUN Creatinine Creat Clearance w eGFR POC Glucometer 200.12554 238.47260 264.70501 Random Glucose Calcium Phosphorus Magnesium Total Bilirubin AST ALT Alkaline Phosphatase Total Protein Albumin 05/14/17 05/14/17 05/14/17 10:55 12:45 12:45 WBC 16.3 H RBC 2.78 L Hgb 8.2 L Hct 25.5 L MCV 91.9 MCH 29.6 MCHC 32.2 RDW 16.3 H Plt Count 212 MPV 8.8 Neutrophils % 90.3 H Lymphocytes % 3.2 L D Monocytes % 5.4 Eosinophils % 0.8 Basophils % 0.3 PT with INR 18.30 H INR 1.62 H PTT (Actin FS) 30.6 Sodium Potassium Chloride Carbon Dioxide Anion Gap BUN Creatinine Creat Clearance w eGFR POC Glucometer 188.09251 Random Glucose Calcium Phosphorus Magnesium Total Bilirubin AST ALT Alkaline Phosphatase Total Protein Albumin 05/14/17 05/14/17 05/14/17 16:13 18:00 21:41 WBC 18.5 H RBC 2.90 L Hgb 8.7 L Hct 26.6 L MCV 91.7 MCH 29.9 MCHC 32.6 RDW 16.4 H Plt Count 270 D MPV 9.1 Neutrophils % 90.0 H Lymphocytes % 2.9 L Monocytes % 5.8 Eosinophils % 1.0 Basophils % 0.3 PT with INR INR PTT (Actin FS) Sodium Potassium Chloride Carbon Dioxide Anion Gap BUN Creatinine Creat Clearance w eGFR POC Glucometer 284.27257 255.99694 Random Glucose Calcium Phosphorus Magnesium Total Bilirubin AST ALT Alkaline Phosphatase Total Protein Albumin 05/15/17 05/15/17 05/15/17 05:05 05:05 05:05 WBC 18.5 H RBC 2.87 L Hgb 8.7 L Hct 26.4 L MCV 92.0 MCH 30.4 MCHC 33.1 RDW 16.2 H Plt Count 313 MPV 9.3 Neutrophils % 91.2 H Lymphocytes % 2.3 L D Monocytes % 5.5 Eosinophils % 0.9 Basophils % 0.1 PT with INR 16.50 H INR 1.46 H PTT (Actin FS) 30.2 Sodium 138 Potassium 4.3 Chloride 102 Carbon Dioxide 27 Anion Gap 9 BUN 35 H Creatinine 0.9 Creat Clearance w eGFR > 60 POC Glucometer Random Glucose 170 H D Calcium 7.2 L Phosphorus 3.2 D Magnesium 1.9 Total Bilirubin 1.0 AST 72 H D ALT 49 D Alkaline Phosphatase 246 H Total Protein 5.0 L Albumin 1.4 L 05/15/17 05:07 WBC RBC Hgb Hct MCV MCH MCHC RDW Plt Count MPV Neutrophils % Lymphocytes % Monocytes % Eosinophils % Basophils % PT with INR INR PTT (Actin FS) Sodium Potassium Chloride Carbon Dioxide Anion Gap BUN Creatinine Creat Clearance w eGFR POC Glucometer 204.70655 Random Glucose Calcium Phosphorus Magnesium Total Bilirubin AST ALT Alkaline Phosphatase Total Protein Albumin Microbiology 05/12/17 11:15 Blood - Peripheral Venous Blood Culture - Preliminary NO GROWTH OBTAINED AFTER 72 HOURS, INCUBATION TO CONTINUE FOR 2 DAYS. 05/12/17 11:05 Blood - Peripheral Venous Blood Culture - Preliminary NO GROWTH OBTAINED AFTER 72 HOURS, INCUBATION TO CONTINUE FOR 2 DAYS. 05/12/17 15:00 Sputum - Endotrachea Suction/Ventilator Sputum Culture - Preliminary Yeast Like Organism 05/12/17 19:00 Urine - Urine Napier Urine Culture - Final Yeast Like Organism Active Medications Generic Name Dose Route Start Last Admin Trade Name Freaustin PRN Reason Stop Dose Admin Acetaminophen 650 mg 05/06/17 17:00 05/14/17 16:17 Tylenol Oral Solution - PO 650 mg Q6H PRN Administration FEVER Amiodarone HCl 200 mg 05/09/17 22:00 05/15/17 09:01 Cordarone - NGT 200 mg BID [facility] Administration Chlorhexidine Gluconate 15 ml 05/07/17 22:00 05/15/17 09:02 Peridex - MM 15 ml BID [facility] Administration Docusate Sodium 100 mg 05/13/17 10:00 05/15/17 09:01 Colace Liquid - NGT 05/20/17 09:59 Not Given DAILY [facility] Meropenem 500 mg in 10 mls @ 120 mls/hr 05/06/17 14:45 05/15/17 09:02 Merrem (Restricted To Id) - IVPUSH 120 mls/hr BID [facility] Administration Pantoprazole Sodium 160 mg/ 290 mls @ 14.5 mls/hr 05/14/17 09:30 05/15/17 05: 26 Dextrose IVPB 14.5 mls/hr Q20H [facility]ANDA Administration Vancomycin HCl 1,250 mg/ 250 mls @ 125 mls/hr 05/14/17 16:15 05/14/17 16:18 Sodium Chloride IVPB Not Given DAILY@1400 [facility] Protocol Norepinephrine Bitartrate 16, 1,000 mls @ 18.75 mls/hr 05/14/17 17:00 17:00 000 mcg/ Dextrose IV 5 mcg/min TITR SHANDA 18.75 mls/hr Protocol Administration 5 MCG/MIN Insulin Aspart 1 vial 05/06/17 16:30 05/15/17 11:09 Novolog Vial Sliding Scale - SQ 2 units ACHS SHANDA Administration Protocol Metoprolol Tartrate 25 mg 05/13/17 10:00 05/15/17 09:02 Lopressor - NGT Not Given BID [facility] Senna 8.8 mg 05/13/17 10:00 05/14/17 21:37 Senna Oral Solution - PO 05/20/17 09:59 Not Given HS [facility] ASSESSMENT/PLAN: 86M with pmhx of dementia, metabolic encephalopathy, sent from [facility] for hypoxia in the 70's Pt was intubated admitted to ICU for acute respiratory failure. ID: Septic shock 2/2 to PNA and flu ID-Dr. Jose Kumari-1g Q48H Completed tamiflu Still on meropenem- started 05/06 Back on Levophed after 2 days off @5mcgs off Fentanyl since 05/13/17 Pending cultures- urine and sputum- yeast like organism blood- negative-[id number] Cardio: Atrial fibrillation with RVR Hold AC in the setting of Anemia & subdural bleed Cardiology on board, Dr. Mays Amiodarone 200mg NGT Digoxin @0.25 Pulm: Acute respiratory failure Intubated/off [id number], TV-450, 40%, 10 Off Levophed, off Fentanyl Did not tolerate SIMV yesterday Continue ventilatory support- not a candidate for weaning trials today as back on pressors Neuro: AMS Hx of Subdural bleeds Intubated off sedation, not responsive to pain, or commands off sedation Evaluated by neurosurgery, No recommendation for intervention at this time. Hemonc: Anemia - GI bleed on going s/p 1u PRBCs on 05/13 Received 2u ffps this am and vitk Cont Protonix drip Monitor H/H- CBC Transfuse as needed D/W Dr Herrera- EGD is pending goals of care meeting with family. If they want to proceed with EGD, likely for tomorrow NPO- active GI bleed Renal: REBEKA, likely prerenal vs ATN from sepsis Cr-0.9-stable Monitor Urine lytes, BUN, Cr. Endo: Hyperglycemia BGM ACHS ISS ACHS FEN/GI: Monitor BMPs Tube feeds, via NGT- nepro@40. Protonix drip Dr Herrera on board as above PPx: Protonix drip started SCDs, no ac in the setting of anemia and subdural bleeds Dispo: Monitor in ICU Discuss goals of care with family meeting for 05/15 at 5.30pm Sindhu on board Visit type - Emergency Visit Emergency Visit: Yes ED Registration Date: 05/05/17 Care time: The patient presented to the Emergency Department on the above date and was hospitalized for further evaluation of their emergent condition. - New Patient This patient is new to me today: No - Critical Care Critical Care patient: Yes Total Critical Care Time (in minutes): 45 Critical Care Statement: The care of this patient involved high complexity decision making to prevent further life threatening deterioration of the patient 's condition and/or to evaluate & treat vital organ system(s) failure or risk of failure. - Discharge Referral Referred to [facility] Med P.C.: No
--- NOTE | 2017-05-15 12:15 | PN ---
Progress Note (short form) - Note Progress Note: Pt remains off sedation, unresponsive to painful stimuli. Back on pressors this am. Hgb 7.8 g/dl. A meeting between the ICU team and the pt's family re goals of care to be held at 1730 today. Critically ill, unlikely to have meaningful recovery with, or without endoscopic intervention Continue supportive care. Family meeting as planned Transfuse as needed and correct coagulopathy, if possible will follow closely. Problem List - Problems (1) Influenza Code(s): J11.1 - FLU DUE TO UNIDENTIFIED INFLUENZA VIRUS W OTH RESP MANIFEST (2) Respiratory failure Code(s): J96.90 - RESPIRATORY FAILURE, UNSP, UNSP W HYPOXIA OR HYPERCAPNIA Qualifiers: Chronicity: acute Respiratory failure complication: hypoxia Qualified Code(s): J96.01 - Acute respiratory failure with hypoxia (3) Sepsis Code(s): A41.9 - SEPSIS, UNSPECIFIED ORGANISM Qualifiers: Sepsis type: sepsis due to unspecified organism Qualified Code(s): A41.9 - Sepsis, unspecified organism (4) REBEKA (acute kidney injury) Code(s): N17.9 - ACUTE KIDNEY FAILURE, UNSPECIFIED (5) Anemia Code(s): D64.9 - ANEMIA, UNSPECIFIED Qualifiers: Other causes of anemia: chronic disease, other (6) B12 deficiency Code(s): E53.8 - DEFICIENCY OF OTHER SPECIFIED B GROUP VITAMINS (7) Status post hip surgery Code(s): Z98.890 - OTHER SPECIFIED POSTPROCEDURAL STATES
--- NOTE | 2017-05-15 12:23 | PN ---
Progress Note, Physician History of Present Illness: Pt seen and examined at bedside. He remains in the ICU. Pt was hypotensive and pressors were started yesterday. - Current Medication List Current Medications: Active Medications Acetaminophen (Tylenol Oral Solution -) 650 mg PO Q6H PRN PRN Reason: FEVER Last Admin: 05/14/17 16:17 Dose: 650 mg Amiodarone HCl (Cordarone -) 200 mg NGT BID [facility] Last Admin: 05/15/17 09:01 Dose: 200 mg Chlorhexidine Gluconate (Peridex -) 15 ml MM BID [facility] Last Admin: 05/15/17 09:02 Dose: 15 ml Docusate Sodium (Colace Liquid -) 100 mg NGT DAILY [facility] Stop: 05/20/17 09:59 Last Admin: 05/15/17 09:01 Dose: Not Given Meropenem (Merrem (Restricted To Id) -) 500 mg in 10 mls @ 120 mls/hr IVPUSH BID [facility] Last Admin: 05/15/17 09:02 Dose: 120 mls/hr Pantoprazole Sodium 160 mg/ (Dextrose) 290 mls @ 14.5 mls/hr IVPB Q20H [facility] Last Admin: 05/15/17 05:26 Dose: 14.5 mls/hr Vancomycin HCl 1,250 mg/ (Sodium Chloride) 250 mls @ 125 mls/hr IVPB DAILY@ 1400 SHANDA PRN Reason: Protocol Last Admin: 05/14/17 16:18 Dose: Not Given Norepinephrine Bitartrate 16, (000 mcg/ Dextrose) 1,000 mls @ 18.75 mls/hr IV TITR SHANDA; 5 MCG/MIN PRN Reason: Protocol Last Admin: 05/14/17 17:00 Dose: 5 mcg/min, 18.75 mls/hr Insulin Aspart (Novolog Vial Sliding Scale -) 1 vial SQ ACHS SHANDA PRN Reason: Protocol Last Admin: 05/15/17 11:09 Dose: 2 units Metoprolol Tartrate (Lopressor -) 25 mg NGT BID [facility] Last Admin: 05/15/17 09:02 Dose: Not Given Senna (Senna Oral Solution -) 8.8 mg PO HS [facility] Stop: 05/20/17 09:59 Last Admin: 05/14/17 21:37 Dose: Not Given - Objective Vital Signs: Vital Signs Temperature 98.5 F 05/15/17 12:00 Pulse Rate 71 05/15/17 12:00 Respiratory Rate 20 05/15/17 12:00 Blood Pressure 137/56 05/15/17 12:00 O2 Sat by Pulse Oximetry (%) 100 05/15/17 08:15 Constitutional: Yes: Calm Eyes: Yes: Conjunctiva Clear Cardiovascular: Yes: S1, S2 Respiratory: Yes: Mechanically Ventilated Gastrointestinal: Yes: Soft Genitourinary: Yes: Napier Present Musculoskeletal: Yes: Muscle Weakness Edema: No Neurological: Yes: Lethargy Labs: CBC, BMP 05/15/17 05:05 05/15/17 05:05 INR, PTT INR 1.46 (0.82-1.09) H 05/15/17 05:05 Problem List - Problems (1) [id number] kidney injury Code(s): N17.9 - ACUTE KIDNEY FAILURE, UNSPECIFIED; N18.9 - CHRONIC KIDNEY DISEASE, UNSPECIFIED Qualifiers: Chronic kidney disease stage: stage 3 (moderate) (2) Influenza Code(s): J11.1 - FLU DUE TO UNIDENTIFIED INFLUENZA VIRUS W OTH RESP MANIFEST (3) Respiratory failure Code(s): J96.90 - RESPIRATORY FAILURE, UNSP, UNSP W HYPOXIA OR HYPERCAPNIA Qualifiers: Chronicity: acute Respiratory failure complication: hypoxia Qualified Code(s): J96.01 - Acute respiratory failure with hypoxia (4) Sepsis Code(s): A41.9 - SEPSIS, UNSPECIFIED ORGANISM Qualifiers: Sepsis type: sepsis due to unspecified organism Qualified Code(s): A41.9 - Sepsis, unspecified organism (5) REBEKA (acute kidney injury) Code(s): N17.9 - ACUTE KIDNEY FAILURE, UNSPECIFIED Assessment/Plan Current Medications Generic Name Dose Route Start Last Admin Trade Name Freq PRN Reason Stop Dose Admin Acetaminophen 650 mg 05/06/17 17:00 05/14/17 16:17 Tylenol Oral Solution - PO 650 mg Q6H PRN Administration FEVER Amiodarone HCl 200 mg 05/09/17 22:00 05/15/17 09:01 Cordarone - NGT 200 mg BID [facility]ANDA Administration Chlorhexidine Gluconate 15 ml 05/07/17 22:00 05/15/17 09:02 Peridex - MM 15 ml BID [facility] Administration Docusate Sodium 100 mg 05/13/17 10:00 05/15/17 09:01 Colace Liquid - NGT 05/20/17 09:59 Not Given DAILY [facility] Meropenem 500 mg in 10 mls @ 120 mls/hr 05/06/17 14:45 05/15/17 09:02 Merrem (Restricted To Id) - IVPUSH 120 mls/hr BID [facility] Administration Pantoprazole Sodium 160 mg/ 290 mls @ 14.5 mls/hr 05/14/17 09:30 05/15/17 05: 26 Dextrose IVPB 14.5 mls/hr Q20H [facility] Administration Vancomycin HCl 1,250 mg/ 250 mls @ 125 mls/hr 05/14/17 16:15 05/14/17 16:18 Sodium Chloride IVPB Not Given DAILY@1400 [facility] Protocol Norepinephrine Bitartrate 16, 1,000 mls @ 18.75 mls/hr 05/14/17 17:00 17:00 000 mcg/ Dextrose IV 5 mcg/min TITR SHAN[facility] 18.75 mls/hr Protocol Administration 5 MCG/MIN Insulin Aspart 1 vial 05/06/17 16:30 05/15/17 11:09 Novolog Vial Sliding Scale - SQ 2 units ACHS [facility]AN[facility] Administration Protocol Metoprolol Tartrate 25 mg 05/13/17 10:00 05/15/17 09:02 Lopressor - NGT Not Given BID [facility] Senna 8.8 mg 05/13/17 10:00 05/14/17 21:37 Senna Oral Solution - PO 05/20/17 09:59 Not Given HS [facility] Impression 1. REBEKA 2. hip fracture 3. htn 4. dementia 5. anemia 6. hypomagnesemia 7. iron deficiency 8. hyperkalemia 9. respiratory failure requiring intubation 10. sepsis Plan - cont feeds - pressors to a map of 65 - likely REBEKA from sepsis and prerenal disease causing ATN - hold cesar and bp meds - vent support - will follow PRN Dr Rubi
[2017-05-15] MEDS: VANCOMYCIN 1,250 MG in SODIUM CHLORIDE 250 ML IVPB SCH (13:23)
[2017-05-15] MEDS ORDERED: FLUCONAZOLE 400 MG/D5W 200 ML IVPB SCH (14:45)
[2017-05-15] MEDS ORDERED: FLUCONAZOLE 400 MG/NS 200 ML IVPB SCH (15:00)
[2017-05-15 15:23] LABS: BASO % 0.5 % (0-2.0); EOS % 1.1 % (0-4.5); LYMPH % 3.8 % (8-40); MCH 29.7 pg (25.7-33.7); MCHC 32.3 g/dl (32.0-35.9); MEAN PLT VOLUME 8.6 fl (7.5-11.1); MONO % 6.1 % (3.8-10.2); NEUT % 88.5 % (42.8-82.8); PLATELET COUNT 258 K/MM3 (134-434); RBC 2.21 M/mm3 (4.00-5.60); RDW 16.3 % (11.9-15.9); WHITE BLOOD COUNT 13.6 K/mm3 (4.0-10.0)
[2017-05-15] MEDS: FLUCONAZOLE 400 MG/NS 200 ML IVPB SCH (15:24)
[2017-05-15 15:27] LABS: HEMATOCRIT 20.4 % (35.4-49); HEMOGLOBIN 6.6 GM/dL (11.7-16.9)
--- NOTE | 2017-05-15 15:36 | PN ---
Progress Note (short form) - Note Progress Note: Hgb 6.6 g/dl. One BM in AM Discussed with ICU team to transfuse 2 u PRBC and continue PPI IV Problem List - Problems (1) Influenza Code(s): J11.1 - FLU DUE TO UNIDENTIFIED INFLUENZA VIRUS W OTH RESP MANIFEST (2) Respiratory failure Code(s): J96.90 - RESPIRATORY FAILURE, UNSP, UNSP W HYPOXIA OR HYPERCAPNIA Qualifiers: Chronicity: acute Respiratory failure complication: hypoxia Qualified Code(s): J96.01 - Acute respiratory failure with hypoxia (3) Sepsis Code(s): A41.9 - SEPSIS, UNSPECIFIED ORGANISM Qualifiers: Sepsis type: sepsis due to unspecified organism Qualified Code(s): A41.9 - Sepsis, unspecified organism (4) REBEKA (acute kidney injury) Code(s): N17.9 - ACUTE KIDNEY FAILURE, UNSPECIFIED (5) Anemia Code(s): D64.9 - ANEMIA, UNSPECIFIED Qualifiers: Other causes of anemia: chronic disease, other (6) B12 deficiency Code(s): E53.8 - DEFICIENCY OF OTHER SPECIFIED B GROUP VITAMINS (7) Status post hip surgery Code(s): Z98.890 - OTHER SPECIFIED POSTPROCEDURAL STATES
[2017-05-15] MEDS: ACETAMINOPHEN 650 MG/20.3 ML ORAL SOLUTION (CUPS) PO PRN (16:26)
[2017-05-15] MEDS ORDERED: NOREPINEPHRINE BITARTRATE 4 MG/4 ML ML IV ONE (16:32)
--- NOTE | 2017-05-15 16:55 | PN ---
Progress Note, Physician History of Present Illness: now on pressors had vikash blood pressure drop patient getting blood conitnues to be intubated and sedated - Current Medication List Current Medications: Active Medications Acetaminophen (Tylenol Oral Solution -) 650 mg PO Q6H PRN PRN Reason: FEVER Last Admin: 05/15/17 16:26 Dose: 650 mg Amiodarone HCl (Cordarone -) 200 mg NGT BID [facility] Last Admin: 05/15/17 09:01 Dose: 200 mg Chlorhexidine Gluconate (Peridex -) 15 ml MM BID [facility] Last Admin: 05/15/17 09:02 Dose: 15 ml Docusate Sodium (Colace Liquid -) 100 mg NGT DAILY [facility] Stop: 05/20/17 09:59 Last Admin: 05/15/17 09:01 Dose: Not Given Meropenem (Merrem (Restricted To Id) -) 500 mg in 10 mls @ 120 mls/hr IVPUSH BID [facility] Last Admin: 05/15/17 09:02 Dose: 120 mls/hr Pantoprazole Sodium 160 mg/ (Dextrose) 290 mls @ 14.5 mls/hr IVPB Q20H [facility] Last Admin: 05/15/17 05:26 Dose: 14.5 mls/hr Vancomycin HCl 1,250 mg/ (Sodium Chloride) 250 mls @ 125 mls/hr IVPB DAILY@ 1400 SHANDA PRN Reason: Protocol Last Admin: 05/15/17 13:23 Dose: 125 mls/hr Norepinephrine Bitartrate 16, (000 mcg/ Dextrose) 1,000 mls @ 18.75 mls/hr IV TITR SHANDA; 5 MCG/MIN PRN Reason: Protocol Last Admin: 05/14/17 17:00 Dose: 5 mcg/min, 18.75 mls/hr Fluconazole (Diflucan 400 Mg/Ns Premixed Ivpb -) 200 mls @ 200 mls/hr IVPB DAILY [facility] Last Admin: 05/15/17 15:24 Dose: 200 mls/hr Insulin Aspart (Novolog Vial Sliding Scale -) 1 vial SQ ACHS [facility]ANDA PRN Reason: Protocol Last Admin: 05/15/17 16:48 Dose: 2 units Metoprolol Tartrate (Lopressor -) 25 mg NGT BID [facility] Last Admin: 05/15/17 09:02 Dose: Not Given Senna (Senna Oral Solution -) 8.8 mg PO HS [facility] Stop: 05/20/17 09:59 Last Admin: 05/14/17 21:37 Dose: Not Given - Objective Vital Signs: Vital Signs Temperature 98.9 F 05/15/17 16:00 Pulse Rate 64 05/15/17 16:00 Respiratory Rate 16 05/15/17 16:23 Blood Pressure 121/47 05/15/17 16:00 O2 Sat by Pulse Oximetry (%) 100 05/15/17 08:15 Constitutional: Yes: Other Cardiovascular: Yes: Regular Rate and Rhythm Respiratory: Yes: Intubated, Mechanically Ventilated Gastrointestinal: Yes: Normal Bowel Sounds, Soft Musculoskeletal: Yes: WNL Extremities: Yes: WNL Neurological: Yes: Other Labs: CBC, BMP 05/15/17 14:30 05/15/17 05:05 INR, PTT INR 1.46 (0.82-1.09) H 05/15/17 05:05 Assessment/Plan Problem List - Problems (1) Sepsis Code(s): A41.9 - SEPSIS, UNSPECIFIED ORGANISM (2) REBEKA (acute kidney injury) Code(s): N17.9 - ACUTE KIDNEY FAILURE, UNSPECIFIED (3) Anemia Code(s): D64.9 - ANEMIA, UNSPECIFIED Qualifiers: Other causes of anemia: chronic disease, other (4) Respiratory failure Code(s): J96.90 - RESPIRATORY FAILURE, UNSP, UNSP W HYPOXIA OR HYPERCAPNIA wound infection influenza a afib with rapid rvr leukocytosis gi following plan continue abx await for elisabeth;l decision from gi rest continue supportive measures patient continues to be critical on pressors now cc time 40
[2017-05-15] MEDS: NOREPINEPHRINE BITARTRATE 16,000 MCG in DEXTROSE 5%-WATER - 984 ML IV SCH (17:00)
--- NOTE | 2017-05-15 18:39 | PN ---
Progress Note (short form) - Note Progress Note: Family meeting with step-son and step son's , Sindhu Barnes and myself to discuss GOC. Patient's current status, vent requirements, suspected GI bleed, blood pressure support explained to family, all questions answered to satisfaction. Explained GI procedures to identify source of anemia/melanotic stools, with risks involved to this patient, including possible need for trach and PEG tube in future. Family considered the risk and outcomes regarding the patient's quality of life with continued measures. At this time, they request no further blood draws, procedures, and testing. They will return tomorrow for compassionate weaning and hospice care for patient.
[2017-05-15] MEDS: SENNOSIDES 8.8 MG/5 ML BULK BOTTLE PO SCH (22:10)
[2017-05-16] MEDS: PANTOPRAZOLE SODIUM 160 MG in DEXTROSE 5%-WATER - 290 ML IVPB SCH (01:54)
[2017-05-16] MEDS: INSULIN SLIDING SCALE (NOVOLOG) 1 VIAL SQ SCH ×2 (07:17→11:52)
--- NOTE | 2017-05-16 08:03 | PN ---
Physical Exam: SUBJECTIVE: Patient seen and examined. No more blood draws, procedures or testing following family meeting yesterday. Plan is for compassionate extubation and hospice care for patient today. OBJECTIVE: Vital Signs Period Temp Pulse Resp BP Sys/[place] Pulse Ox Last 24 Hr 98.5 F-100 F 61-81 16-29 111-151/42-66 100-100 Vital Signs Temp 100 F H 05/16/17 06:00 Pulse 81 05/16/17 06:00 Resp 18 05/16/17 06:44 BP 151/66 05/16/17 06:00 Pulse Ox 100 05/15/17 22:00 Intake & Output 05/15/17 05/15/17 05/16/17 11:59 23:59 11:59 Intake Total 1310 1439 1302 Output Total 450 200 300 Balance 860 1239 1002 Weight 65.374 kg 72.439 kg Intake: IV 426 399 252 Abx 30 Levophed - 16,000 Mcg In 228 225 84 D5w - 984 ml @ 5 MCG/MIN 18.75 mls/hr IV TITR SHANDA Rx#:[id number] PROTONIX DRIP 168 174 168 IVPB 450 100 Oral 0 Tube Feeding 200 160 480 Packed Cells 350 350 Fresh Frozen Plasma 634 Tube Irrigant 50 80 120 Output: Urine 450 200 300 [place]ier 450 200 300 Other: Voiding Method Indwelling Catheter Indwelling Catheter Bowel Movement Yes: LARGE AND BLOODY Yes # Bowel Movements 1 2 Weight Measurement Method Built [facility] Built [facility] Intake & Output 05/13/17 05/14/17 05/15/17 05/16/17 23:59 23:59 23:59 23:59 Intake Total 1870 1816 2749 1302 Output Total 775 750 650 300 Balance 1095 1066 2099 1002 Weight 68.991 kg 64.07 kg 65.374 kg 72.439 kg GENERAL:Intubated, off sedation since 05/13/17 , still non responsive- RR-16, TV- 450, 40%, 10/ EYES: Round reactive bilaterally ENT: OGT, ETT, moist mucous membranes, RIJ in place. LUNGS: creps >L, reduced BS on R HEART: Regular rate and rhythm, S1, S2, ABDOMEN: normoactive bowel sounds EXTREMITIES: bilateral UE edema NEUROLOGICAL: Intubated off sedation, not responding to pain. Pupils bilaterally reactive, no facial droop. Reduced muscle tone globally. PSYCH: Cannot assess Lines: ETT, OGT, RIJ-05/05/17, Napier, SCDs, Heel pads Laboratory Results - last 24 hr 05/13/17 05/14/17 05/15/17 20:00 11:53 11:07 WBC RBC Hgb Hct MCV MCH MCHC RDW Plt Count MPV Neutrophils % Lymphocytes % Monocytes % Eosinophils % Basophils % POC Glucometer [phone] Blood Type B POSITIVE Antibody Screen Negative Crossmatch See Detail See Detail 05/15/17 05/15/17 05/15/17 14:30 16:45 22:09 WBC 13.6 H RBC 2.21 L D Hgb 6.6 L* D Hct 20.4 L D MCV 92.0 MCH 29.7 MCHC 32.3 RDW 16.3 H Plt Count 258 MPV 8.6 Neutrophils % 88.5 H Lymphocytes % 3.8 L D Monocytes % 6.1 Eosinophils % 1.1 Basophils % 0.5 D POC Glucometer 208.97671 204.33876 Blood Type Antibody Screen Crossmatch Active Medications Generic Name Dose Route Start Last Admin Trade Name Freq PRN Reason Stop Dose Admin Acetaminophen 650 mg 05/06/17 17:00 05/15/17 16:26 Tylenol Oral Solution - PO 650 mg Q6H PRN Administration FEVER Amiodarone HCl 200 mg 05/09/17 22:00 05/15/17 22:10 Cordarone - NGT 200 mg BID SHANDA Administration Chlorhexidine Gluconate 15 ml 05/07/17 22:00 05/15/17 22:10 Peridex - MM 15 ml BID SHANDA Administration Docusate Sodium 100 mg 05/13/17 10:00 05/15/17 09:01 Colace Liquid - NGT 05/20/17 09:59 Not Given DAILY SHANDA Meropenem 500 mg in 10 mls @ 120 mls/hr 05/06/17 14:45 05/15/17 22:10 Merrem (Restricted To Id) - IVPUSH 120 mls/hr BID SHANDA Administration Pantoprazole Sodium 160 mg/ 290 mls @ 14.5 mls/hr 05/14/17 09:30 05/16/17 01: 54 Dextrose IVPB 14.5 mls/hr Q20H SHANDA Administration Vancomycin HCl 1,250 mg/ 250 mls @ 125 mls/hr 05/14/17 16:15 05/15/17 13:23 Sodium Chloride IVPB 125 mls/hr DAILY@1400 SHANDA Administration Protocol Norepinephrine Bitartrate 16, 1,000 mls @ 18.75 mls/hr 05/14/17 17:00 04:00 000 mcg/ Dextrose IV 0 mcg/min TITR SHANDA 0 mls/hr Protocol Titration 5 MCG/MIN Fluconazole 200 mls @ 200 mls/hr 05/15/17 15:15 05/15/17 15:24 Diflucan 400 Mg/Ns Premixed Ivpb - IVPB 200 mls/hr DAILY SHANDA Administration Insulin Aspart 1 vial 05/06/17 16:30 05/16/17 07:17 Novolog Vial Sliding Scale - SQ Not Given ACHS [facility] Protocol Metoprolol Tartrate 25 mg 05/13/17 10:00 05/15/17 22:05 Lopressor - NGT Not Given BID SHANDA Senna 8.8 mg 05/13/17 10:00 05/15/17 22:10 Senna Oral Solution - PO 05/20/17 09:59 Not Given HS [facility] ASSESSMENT/PLAN: 86M with pmhx of dementia, metabolic encephalopathy, sent from [facility] for hypoxia in the 70's Pt was intubated admitted to ICU for acute respiratory failure, with multiple failed weaning trials, AMS of sedation and non responsive, now for compassionate extubation ID: Septic shock 2/2 to PNA and flu ID-Dr. Garcia stop Vanc-1g Q48H Completed tamiflu stop meropenem- started 05/06 stop Levophed off Fentanyl since 05/13/17 Pending cultures- urine and sputum- yeast like organism blood- negative-[id number] Cardio: Atrial fibrillation with RVR Hold AC in the setting of Anemia & subdural bleed Cardiology on board, Dr. Mays Stop Amiodarone 200mg NGT stop Digoxin @0.25 Pulm: Acute respiratory failure Intubated/off [id number], TV-450, 40%, 10 stop Levophed, off Fentanyl Did not tolerate SIMV Repeated failed weaning trials For Compassionate extubation iv 2mg morphine stat 100/100 morphine @2 Iv Ativan 2mg Q6H Iv Tylenol 1g Q6H PRN Neuro: AMS Hx of Subdural bleeds Intubated, off sedation since 05/13/17 , still not responsive to pain, vcv-Ac - RR-16, TV-450, 40%, 01/16 Evaluated by neurosurgery, No recommendation for intervention at this time. Repeated failed weaning trials For Compassionate extubation Hemonc: Anemia - GI bleed on going s/p 1u PRBCs on 05/13 Received 2u ffps this am and vitk Stop Protonix drip Stop blood work Transfuse as needed D/W Dr Herrera- EGD is cancelled as comfort care only Stop feeds Renal: REBEKA, likely prerenal vs ATN from sepsis Stop Monitoring For Compassionate extubation Endo: Hyperglycemia Stop BGM ACHS Stop ISS ACHS FEN/GI: Monitor BMPs Stop Tube feeds Stop Protonix drip Dr Herrera on board as above PPx: Stop Protonix drip SCDs, no ac in the setting of anemia and subdural bleeds Dispo: For Compassionate extubation today and hospice care as needed Visit type - Emergency Visit Emergency Visit: Yes ED Registration Date: 05/05/17 Care time: The patient presented to the Emergency Department on the above date and was hospitalized for further evaluation of their emergent condition. - New Patient This patient is new to me today: No - Critical Care Critical Care patient: Yes Total Critical Care Time (in minutes): 40 Critical Care Statement: The care of this patient involved high complexity decision making to prevent further life threatening deterioration of the patient 's condition and/or to evaluate & treat vital organ system(s) failure or risk of failure. - Discharge Referral Referred to [facility] Med P.C.: No
[2017-05-16] MEDS ORDERED: PT OWN MED DRAWER 7, Y5N ONE (09:26)
[2017-05-16] MEDS: FLUCONAZOLE 400 MG/NS 200 ML IVPB SCH (09:45)
[2017-05-16] MEDS: METOPROLOL TARTRATE 25 MG TABLET (FP) NGT SCH (09:46)
[2017-05-16] MEDS: AMIODARONE HCL 200 MG TABLET (FP) NGT SCH (09:46)
[2017-05-16] MEDS: DOCUSATE NA 100 MG/10 ML UNIT-DOSE CUPS NGT SCH (09:46)
[2017-05-16] MEDS: CHLORHEXIDINE GLUCONATE 0.12% 15ML CUP MM SCH (09:47)
[2017-05-16] MEDS: MEROPENEM 500 MG PUSH 500 MG/10 ML DISP.SYRIN IVPUSH SCH (10:53)
--- NOTE | 2017-05-16 11:53 | PN ---
Teaching Attending Note Name of Resident: Linda Rose ATTENDING PHYSICIAN STATEMENT I saw and evaluated the patient. I reviewed the resident's note and discussed the case with the resident. I agree with the resident's findings and plan as documented. SUBJECTIVE: Patient seen and examined in the ICU. Remains intubated, unresponsive off sedation. NE drip for hemodynamic support. Anticipated for compassionate extubation today. OBJECTIVE: Intake & Output 05/13/17 05/14/17 05/15/17 05/16/17 23:59 23:59 23:59 23:59 Intake Total 1870 1816 2749 1302 Output Total 775 750 650 300 Balance 1095 1066 2099 1002 Weight 152 lb 1.6 oz 141 lb 4 oz 144 lb 2 oz 159 lb 11.2 oz Last Vital Signs Temp Pulse Resp BP Pulse Ox 100 F H 81 23 151/66 100 05/16/17 06:00 05/16/17 06:00 05/16/17 11:41 05/16/17 06:00 05/15/17 22:00 Active Medications Acetaminophen (Tylenol Oral Solution -) 650 mg PO Q6H PRN PRN Reason: FEVER Last Admin: 05/15/17 16:26 Dose: 650 mg Amiodarone HCl (Cordarone -) 200 mg NGT BID [facility] Last Admin: 05/16/17 09:46 Dose: 200 mg Chlorhexidine Gluconate (Peridex -) 15 ml MM BID [facility] Last Admin: 05/16/17 09:47 Dose: 15 ml Docusate Sodium (Colace Liquid -) 100 mg NGT DAILY [facility] Stop: 05/20/17 09:59 Last Admin: 05/16/17 09:46 Dose: Not Given Meropenem (Merrem (Restricted To Id) -) 500 mg in 10 mls @ 120 mls/hr IVPUSH BID [facility] Last Admin: 05/16/17 10:53 Dose: 120 mls/hr Pantoprazole Sodium 160 mg/ (Dextrose) 290 mls @ 14.5 mls/hr IVPB Q20H [facility] Last Admin: 05/16/17 01:54 Dose: 14.5 mls/hr Vancomycin HCl 1,250 mg/ (Sodium Chloride) 250 mls @ 125 mls/hr IVPB DAILY@ 1400 SHANDA PRN Reason: Protocol Last Admin: 05/15/17 13:23 Dose: 125 mls/hr Norepinephrine Bitartrate 16, (000 mcg/ Dextrose) 1,000 mls @ 18.75 mls/hr IV TITR SHANDA; 5 MCG/MIN PRN Reason: Protocol Last Titration: 05/16/17 04:00 Dose: 0 mcg/min, 0 mls/hr Fluconazole (Diflucan 400 Mg/Ns Premixed Ivpb -) 200 mls @ 200 mls/hr IVPB DAILY [facility] Last Admin: 05/16/17 09:45 Dose: 200 mls/hr Insulin Aspart (Novolog Vial Sliding Scale -) 1 vial SQ ACHS SHANDA PRN Reason: Protocol Last Admin: 05/16/17 07:17 Dose: Not Given Metoprolol Tartrate (Lopressor -) 25 mg NGT BID [facility] Last Admin: 05/16/17 09:46 Dose: 25 mg Senna (Senna Oral Solution -) 8.8 mg PO HS [facility]AN[facility] Stop: 05/20/17 09:59 Last Admin: 05/15/17 22:10 Dose: Not Given Gen: intubated, unresponsive, tachypneic Heart: RRR Lung: scattered rhonchi Abd: soft, nontender Ext: + edema Laboratory Results - last 24 hr 05/13/17 05/14/17 05/15/17 20:00 11:53 11:07 WBC RBC Hgb Hct MCV MCH MCHC RDW Plt Count MPV Neutrophils % Lymphocytes % Monocytes % Eosinophils % Basophils % POC Glucometer 243.01438 Blood Type B POSITIVE Antibody Screen Negative Crossmatch See Detail See Detail 05/15/17 05/15/17 05/15/17 14:30 16:45 22:09 WBC 13.6 H RBC 2.21 L D Hgb 6.6 L* D Hct 20.4 L D MCV 92.0 MCH 29.7 MCHC 32.3 RDW 16.3 H Plt Count 258 MPV 8.6 Neutrophils % 88.5 H Lymphocytes % 3.8 L D Monocytes % 6.1 Eosinophils % 1.1 Basophils % 0.5 D POC Glucometer 208.57580 204.98261 Blood Type Antibody Screen Crossmatch ASSESSMENT AND PLAN: Acute Hypoxic Respiratory Failure Influenza A Pneumonia Septic Shock Acute Kidney Injury improving Lactic Acidosis resolved Anemia s/p PRBC transfusions Atrial Fibrillation CAD LV Diastolic Dysfunction Subdural Hematoma HTN Dementia Recent R Hip Fracture s/p surgery - AC Mode of vent - For anticipated compassionate extubation - Comfort / supportive measures Dr Dorado critical care time spent in reviewing chart, evaluating patient and formulating plan 36 min
--- NOTE | 2017-05-16 13:40 | PN ---
Progress Note, Physician History of Present Illness: Unarousable on vent, currently in SR. Weaned off Levophed gtt. - Current Medication List Current Medications: Active Medications Acetaminophen (Tylenol Oral Solution -) 650 mg PO Q6H PRN PRN Reason: FEVER Last Admin: 05/15/17 16:26 Dose: 650 mg Amiodarone HCl (Cordarone -) 200 mg NGT BID [facility] Last Admin: 05/16/17 09:46 Dose: 200 mg Chlorhexidine Gluconate (Peridex -) 15 ml MM BID [facility] Last Admin: 05/16/17 09:47 Dose: 15 ml Docusate Sodium (Colace Liquid -) 100 mg NGT DAILY [facility] Stop: 05/20/17 09:59 Last Admin: 05/16/17 09:46 Dose: Not Given Meropenem (Merrem (Restricted To Id) -) 500 mg in 10 mls @ 120 mls/hr IVPUSH BID [facility] Last Admin: 05/16/17 10:53 Dose: 120 mls/hr Pantoprazole Sodium 160 mg/ (Dextrose) 290 mls @ 14.5 mls/hr IVPB Q20H [facility] Last Admin: 05/16/17 01:54 Dose: 14.5 mls/hr Vancomycin HCl 1,250 mg/ (Sodium Chloride) 250 mls @ 125 mls/hr IVPB DAILY@ 1400 SHANDA PRN Reason: Protocol Last Admin: 05/15/17 13:23 Dose: 125 mls/hr Norepinephrine Bitartrate 16, (000 mcg/ Dextrose) 1,000 mls @ 18.75 mls/hr IV TITR SHANDA; 5 MCG/MIN PRN Reason: Protocol Last Titration: 05/16/17 04:00 Dose: 0 mcg/min, 0 mls/hr Fluconazole (Diflucan 400 Mg/Ns Premixed Ivpb -) 200 mls @ 200 mls/hr IVPB DAILY [facility] Last Admin: 05/16/17 09:45 Dose: 200 mls/hr Insulin Aspart (Novolog Vial Sliding Scale -) 1 vial SQ ACHS SHANDA PRN Reason: Protocol Last Admin: 05/16/17 11:52 Dose: 2 units Metoprolol Tartrate (Lopressor -) 25 mg NGT BID [facility] Last Admin: 05/16/17 09:46 Dose: 25 mg Senna (Senna Oral Solution -) 8.8 mg PO HS [facility] Stop: 05/20/17 09:59 Last Admin: 05/15/17 22:10 Dose: Not Given - Objective Vital Signs: Vital Signs Temperature 100 F H 05/16/17 06:00 Pulse Rate 90 05/16/17 10:00 Respiratory Rate 23 05/16/17 11:41 Blood Pressure 137/64 05/16/17 10:00 O2 Sat by Pulse Oximetry (%) 92 L 05/16/17 09:00 Cardiovascular: Yes: Regular Rate and Rhythm Respiratory: Yes: Intubated, Mechanically Ventilated, Rhonchi Gastrointestinal: Yes: Normal Bowel Sounds, Soft Edema: No Labs: CBC, BMP 05/15/17 14:30 05/15/17 05:05 INR, PTT INR 1.46 (0.82-1.09) H 05/15/17 05:05 - ....Imaging EKG: Report Reviewed (Tele: SR) Problem List - Problems (1) Influenza Code(s): J11.1 - FLU DUE TO UNIDENTIFIED INFLUENZA VIRUS W OTH RESP MANIFEST (2) Respiratory failure Code(s): J96.90 - RESPIRATORY FAILURE, UNSP, UNSP W HYPOXIA OR HYPERCAPNIA Qualifiers: Chronicity: acute Respiratory failure complication: hypoxia Qualified Code(s): J96.01 - Acute respiratory failure with hypoxia (3) Subdural hematoma Code(s): I62.00 - NONTRAUMATIC SUBDURAL HEMORRHAGE, UNSPECIFIED (4) Pneumonia Code(s): J18.9 - PNEUMONIA, UNSPECIFIED ORGANISM Qualifiers: Pneumonia type: due to unspecified organism Laterality: left Lung location: lower lobe of lung Qualified Code(s): J18.1 - Lobar pneumonia, unspecified organism (5) [id number]-gqbifwp kidney injury Code(s): N17.9 - ACUTE KIDNEY FAILURE, UNSPECIFIED; N18.9 - CHRONIC KIDNEY DISEASE, UNSPECIFIED Qualifiers: Chronic kidney disease stage: stage 3 (moderate) (6) Paroxysmal atrial fibrillation Code(s): I48.0 - PAROXYSMAL ATRIAL FIBRILLATION Assessment/Plan 1. Acute hypoxic respiratory failure, Influenza A, pneumonia and septic shock with lactic acidosis 2. Paroxysmal atrial fibrillation [id number] not on anticoagulation due to history of SDH 2. CAD with evidence of demand ischemic injury, angina pectoris 3. Diastolic LV dysfunction with class 0-I NYHA classification LV failure 4. Profound anemia, source to be determined, post transfusion 5. Acute on chronic kidney disease improving 6. Hyperglycemia/DM 7. History of HTN, currently hypotensive/septic shock 8. Hyperkalemia 9. Chronic SDH 10. Dementia 11. Recent R Hip Fracture s/p surgery PLAN: 1. Complete antibiotics and completed Tamiflu course 2. Weaned off Levophed gtt for MAP>65 mmHg 3. Monitor Hgb and transfuse as needed maintaining Hgb equal or > 8.0 4. SBT, enteral feeds as tolerated 5. Amiodarone 200 bid and Lopressor 25 bid resumed with hemodynamic stability 6. DVT and GI prophylaxis
--- NOTE | 2017-05-16 14:02 | PN ---
Progress Note, Physician Chief Complaint: INTUBATED NAD CHART AND NOTES REVIEWED - Current Medication List Current Medications: Active Medications Acetaminophen (Tylenol Oral Solution -) 650 mg PO Q6H PRN PRN Reason: FEVER Last Admin: 05/15/17 16:26 Dose: 650 mg Amiodarone HCl (Cordarone -) 200 mg NGT BID [facility] Last Admin: 05/16/17 09:46 Dose: 200 mg Chlorhexidine Gluconate (Peridex -) 15 ml MM BID [facility] Last Admin: 05/16/17 09:47 Dose: 15 ml Docusate Sodium (Colace Liquid -) 100 mg NGT DAILY [facility] Stop: 05/20/17 09:59 Last Admin: 05/16/17 09:46 Dose: Not Given Meropenem (Merrem (Restricted To Id) -) 500 mg in 10 mls @ 120 mls/hr IVPUSH BID [facility] Last Admin: 05/16/17 10:53 Dose: 120 mls/hr Pantoprazole Sodium 160 mg/ (Dextrose) 290 mls @ 14.5 mls/hr IVPB Q20H [facility] Last Admin: 05/16/17 01:54 Dose: 14.5 mls/hr Vancomycin HCl 1,250 mg/ (Sodium Chloride) 250 mls @ 125 mls/hr IVPB DAILY@ 1400 SHANDA PRN Reason: Protocol Last Admin: 05/15/17 13:23 Dose: 125 mls/hr Norepinephrine Bitartrate 16, (000 mcg/ Dextrose) 1,000 mls @ 18.75 mls/hr IV TITR SHANDA; 5 MCG/MIN PRN Reason: Protocol Last Titration: 05/16/17 04:00 Dose: 0 mcg/min, 0 mls/hr Fluconazole (Diflucan 400 Mg/Ns Premixed Ivpb -) 200 mls @ 200 mls/hr IVPB DAILY [facility] Last Admin: 05/16/17 09:45 Dose: 200 mls/hr Insulin Aspart (Novolog Vial Sliding Scale -) 1 vial SQ ACHS [facility] PRN Reason: Protocol Last Admin: 05/16/17 11:52 Dose: 2 units Metoprolol Tartrate (Lopressor -) 25 mg NGT BID [facility] Last Admin: 05/16/17 09:46 Dose: 25 mg Senna (Senna Oral Solution -) 8.8 mg PO HS [facility] Stop: 05/20/17 09:59 Last Admin: 05/15/17 22:10 Dose: Not Given - Objective Vital Signs: Vital Signs Temperature 100 F H 05/16/17 06:00 Pulse Rate 90 05/16/17 10:00 Respiratory Rate 24 05/16/17 13:47 Blood Pressure 137/64 05/16/17 10:00 O2 Sat by Pulse Oximetry (%) 92 L 05/16/17 09:00 Constitutional: Yes: Mild Distress Eyes: Yes: WNL HENT: Yes: WNL Neck: Yes: WNL Cardiovascular: Yes: WNL Respiratory: Yes: Mechanically Ventilated Gastrointestinal: Yes: WNL Genitourinary: Yes: Karthikeyan Present Musculoskeletal: Yes: Muscle Weakness Extremities: Yes: Other Edema: No Peripheral Pulses WNL: Yes Integumentary: Yes: Other Wound/Incision: Yes: Other Neurological: Yes: Pre-Existing Deficit ...Motor Strength: LLE, RLE Psychiatric: Yes: Other Labs: CBC, BMP 05/15/17 14:30 05/15/17 05:05 INR, PTT INR 1.46 (0.82-1.09) H 05/15/17 05:05 Problem List - Problems (1) Lbczb-yo-qqrizct kidney injury Code(s): N17.9 - ACUTE KIDNEY FAILURE, UNSPECIFIED; N18.9 - CHRONIC KIDNEY DISEASE, UNSPECIFIED Qualifiers: Chronic kidney disease stage: stage 3 (moderate) (2) Electrolyte abnormality Code(s): E87.8 - OTH DISORDERS OF ELECTROLYTE AND FLUID BALANCE, NEC (3) Influenza Code(s): J11.1 - FLU DUE TO UNIDENTIFIED INFLUENZA VIRUS W OTH RESP MANIFEST (4) Paroxysmal atrial fibrillation Code(s): I48.0 - PAROXYSMAL ATRIAL FIBRILLATION (5) Pneumonia Code(s): J18.9 - PNEUMONIA, UNSPECIFIED ORGANISM Qualifiers: Pneumonia type: due to unspecified organism Laterality: left Lung location: lower lobe of lung Qualified Code(s): J18.1 - Lobar pneumonia, unspecified organism (6) Respiratory failure Code(s): J96.90 - RESPIRATORY FAILURE, UNSP, UNSP W HYPOXIA OR HYPERCAPNIA Qualifiers: Chronicity: acute Respiratory failure complication: hypoxia Qualified Code(s): J96.01 - Acute respiratory failure with hypoxia (7) Sepsis Code(s): A41.9 - SEPSIS, UNSPECIFIED ORGANISM Qualifiers: Sepsis type: sepsis due to unspecified organism Qualified Code(s): A41.9 - Sepsis, unspecified organism Assessment/Plan VENT SUPPORT DISCUSSED WITH JAKI SINGH TODAY COMPASSIOONATE EXTUBATION TODAY COMFORT CARE DNR/DNI
[2017-05-16] MEDS ORDERED: MORPHINE SULFATE 10 MG/1 ML *VIAL IVPUSH ONE (14:09)
[2017-05-16] MEDS ORDERED: LORazepam 2 MG/ML SDV VIAL IM PRN (14:11)
[2017-05-16] MEDS ORDERED: ACETAMINOPHEN 1000 MG/100 ML VIAL (NON FORMULARY) IVPB PRN (14:13)
[2017-05-16] MEDS ORDERED: MORPHINE 100 MG in SODIUM CHLORIDE 98 ML IVPB SCH (14:15)
[2017-05-16] MEDS ORDERED: LORazepam 2 MG/ML SDV VIAL IVPUSH PRN (14:35)
[2017-05-16] MEDS: VANCOMYCIN 1,250 MG in SODIUM CHLORIDE 250 ML IVPB SCH (22:31)
[2017-05-17 06:23] VITALS: TEMP 96.2
--- NOTE | 2017-05-17 07:57 | PN ---
Progress Note (short form) - Note Progress Note: Chief Complaint: Events noted, notes reviewed, extubated, off of sedation, sinus rhythm is maintained, comfort care on Morphine Sulfate drip History of Present Illness: Seen and examined in the ICU. Events noted, notes reviewed, extubated, off of sedation, sinus rhythm is maintained, comfort care on Morphine Sulfate drip Echocardiography revealed normal LV size and function, abnormal septal motion, dilated RA, moderate MS, mild MR, mild AI, moderate to severe TR, RVSP of 46.6 mmHg - Current Medication List Current Medications: Current Medications Acetaminophen (Ofirmev Injection -) 1,000 mg IVPB Q6H PRN PRN Reason: FEVER Morphine Sulfate 100 mg/ (Sodium Chloride) 100 mls @ 2 mls/hr IVPB TITR SHANDA; 2 MG/HR PRN Reason: Protocol Stop: 05/17/17 14:14 Last Titration: 05/16/17 19:00 Dose: 3 mg/hr, 3 mls/hr Lorazepam (Ativan Injection -) 2 mg IVPUSH Q6H PRN PRN Reason: ANXIETY Last Admin: 05/16/17 14:39 Dose: 2 mg Review of Systems Unable to Obtain - Objective Vital Signs: Last Vital Signs Temp Pulse Resp BP Pulse Ox 96.2 F L 66 20 103/40 99 05/17/17 06:00 05/17/17 06:00 05/17/17 06:00 05/17/17 06:00 05/16/17 22:28 Intake & Output 05/14/17 05/15/17 05/16/17 05/17/17 23:59 23:59 23:59 23:59 Intake Total 1816 2749 1680 Output Total 112 205 0510 Balance 1066 2099 -120 Weight 141 lb 4 oz 144 lb 2 oz 159 lb 11.2 oz 145 lb 9.6 oz Neck: Supple Negative JVD Cardiovascular: S1 S2 Regular Rate Rhythm Grade 1-2/6 SM Respiratory: Diminished Breath Sounds with Bilateral Scattered Rhonchi Gastrointestinal: Soft Benign Normal Bowel Sounds Extremities: Negative Edema Labs: CBC, BMP 05/15/17 14:30 05/15/17 05:05 Assessment/Plan ASSESSMENT: 1. Acute respiratory failure post extubation, Influenza A, pneumonia, septic shock with lactic acidosis, resolved 2. CAD with evidence of demand ischemic injury, angina pectoris 3. Diastolic LV dysfunction with class 0-I NYHA classification LV failure, compensated/hypovolemic 4. Paroxysmal atrial fibrillation [id number] score of 6 on no A/C related to profound anemia, post transfusion 5. Acute on chronic kidney disease 6. HTN 7. DM 8. Chronic SDH PLAN: 1. As outlined above comfort care only on Morphine Sulfate drip 2. Recommend D/C monitor and transferring to floor care Doron laguerre MD
--- NOTE | 2017-05-17 08:56 | PN ---
Progress Note (short form) - Note Progress Note: PULMONARY/CCM Pt seen and examined in the ICU. Extubated on morphine gtt. Appears comfortable. Last Vital Signs Temp Pulse Resp BP Pulse Ox 96.2 F L 66 20 103/40 99 05/17/17 06:00 05/17/17 06:00 05/17/17 06:00 05/17/17 06:00 05/16/17 22:28 Intake & Output 05/14/17 05/15/17 05/16/17 05/17/17 23:59 23:59 23:59 23:59 Intake Total 1816 2749 1680 Output Total 139 169 2046 Balance 1066 2099 -120 Weight 64.07 kg 65.374 kg 72.439 kg 66.043 kg Gen: poorly responsive, mildly tachypneic Heart: RRR Lung: scattered rhonchi Abd: soft, nontender Ext: + edema CBC, BMP 05/15/17 14:30 05/15/17 05:05 Active Medications Acetaminophen (Ofirmev Injection -) 1,000 mg IVPB Q6H PRN PRN Reason: FEVER Morphine Sulfate 100 mg/ (Sodium Chloride) 100 mls @ 2 mls/hr IVPB TITR SHANDA; 2 MG/HR PRN Reason: Protocol Stop: 05/17/17 14:14 Last Titration: 05/16/17 19:00 Dose: 3 mg/hr, 3 mls/hr Lorazepam (Ativan Injection -) 2 mg IVPUSH Q6H PRN PRN Reason: ANXIETY Last Admin: 05/16/17 14:39 Dose: 2 mg A/P Acute Hypoxic Respiratory Failure Influenza A Pneumonia Septic Shock Acute Kidney Injury improving Lactic Acidosis resolved Anemia s/p PRBC transfusions Atrial Fibrillation CAD LV Diastolic Dysfunction Subdural Hematoma HTN Dementia Recent R Hip Fracture s/p surgery - continue supportive care - comfort measures - can transfer to floor
[2017-05-17 10:26] VITALS: BP 104/48
--- NOTE | 2017-05-17 13:48 | PN ---
Progress Note, Physician History of Present Illness: Events noted. Pt on comfort care only, on morphine drip. s/p compassionate extubation. - Current Medication List Current Medications: Active Medications Acetaminophen (Ofirmev Injection -) 1,000 mg IVPB Q6H PRN PRN Reason: FEVER Morphine Sulfate 100 mg/ (Sodium Chloride) 100 mls @ 2 mls/hr IVPB TITR SHANDA; 2 MG/HR PRN Reason: Protocol Stop: 05/17/17 14:14 Last Titration: 05/16/17 19:00 Dose: 3 mg/hr, 3 mls/hr Lorazepam (Ativan Injection -) 2 mg IVPUSH Q6H PRN PRN Reason: ANXIETY Last Admin: 05/16/17 14:39 Dose: 2 mg - Objective Vital Signs: Vital Signs Temperature 96.2 F L 05/17/17 06:00 Pulse Rate 64 05/17/17 08:00 Respiratory Rate 12 05/17/17 08:00 Blood Pressure 104/48 05/17/17 08:00 O2 Sat by Pulse Oximetry (%) 99 05/17/17 09:00 Labs: CBC, BMP 05/15/17 14:30 05/15/17 05:05 INR, PTT INR 1.46 (0.82-1.09) H 05/15/17 05:05 Assessment/Plan Acute respiratory failure s/p compassionate extubation Influenza A pneumonia septic shock CAD Paroxysmal atrial Fib REBEKA on CKD HTN DM Chronic SDH - comfort care measures only, antibiotics stopped
--- NOTE | 2017-05-17 15:06 | PN ---
Progress Note, Physician Chief Complaint: ASLEEP ON COMFORTABLE COMPASSIONATELY EXTUBATED YESTERDAY - Current Medication List Current Medications: Active Medications Acetaminophen (Ofirmev Injection -) 1,000 mg IVPB Q6H PRN PRN Reason: FEVER Lorazepam (Ativan Injection -) 2 mg IVPUSH Q6H PRN PRN Reason: ANXIETY Last Admin: 05/16/17 14:39 Dose: 2 mg - Objective Vital Signs: Vital Signs Temperature 96.2 F L 05/17/17 06:00 Pulse Rate 64 05/17/17 08:00 Respiratory Rate 12 05/17/17 08:00 Blood Pressure 104/48 05/17/17 08:00 O2 Sat by Pulse Oximetry (%) 99 05/17/17 09:00 Constitutional: Yes: Mild Distress Eyes: Yes: WNL HENT: Yes: WNL Neck: Yes: WNL Cardiovascular: Yes: Tachycardia Respiratory: Yes: On Venti-Mask Gastrointestinal: Yes: WNL Genitourinary: Yes: Incontinence Musculoskeletal: Yes: Muscle Weakness Extremities: Yes: Other Edema: No Peripheral Pulses WNL: Yes Integumentary: Yes: Venous Stasis Changes, Other Wound/Incision: Yes: Dressing Dry and Intact Neurological: Yes: Other Labs: CBC, BMP 05/15/17 14:30 05/15/17 05:05 INR, PTT INR 1.46 (0.82-1.09) H 05/15/17 05:05 Problem List - Problems (1) [id number] kidney injury Code(s): N17.9 - ACUTE KIDNEY FAILURE, UNSPECIFIED; N18.9 - CHRONIC KIDNEY DISEASE, UNSPECIFIED Qualifiers: Chronic kidney disease stage: stage 3 (moderate) (2) Electrolyte abnormality Code(s): E87.8 - OTH DISORDERS OF ELECTROLYTE AND FLUID BALANCE, NEC (3) Influenza Code(s): J11.1 - FLU DUE TO UNIDENTIFIED INFLUENZA VIRUS W OTH RESP MANIFEST (4) Paroxysmal atrial fibrillation Code(s): I48.0 - PAROXYSMAL ATRIAL FIBRILLATION (5) Pneumonia Code(s): J18.9 - PNEUMONIA, UNSPECIFIED ORGANISM Qualifiers: Pneumonia type: due to unspecified organism Laterality: left Lung location: lower lobe of lung Qualified Code(s): J18.1 - Lobar pneumonia, unspecified organism (6) Respiratory failure Code(s): J96.90 - RESPIRATORY FAILURE, UNSP, UNSP W HYPOXIA OR HYPERCAPNIA Qualifiers: Chronicity: acute Respiratory failure complication: hypoxia Qualified Code(s): J96.01 - Acute respiratory failure with hypoxia (7) Sepsis Code(s): A41.9 - SEPSIS, UNSPECIFIED ORGANISM Qualifiers: Sepsis type: sepsis due to unspecified organism Qualified Code(s): A41.9 - Sepsis, unspecified organism Assessment/Plan DNR/DNI COMASSIONATE EXTUBATEION YESTERDAY ON VENTI MASK PAIN CONTROL COMFORT MEASURES
[2017-05-17] MEDS ORDERED: SCOPOLAMINE HYDROBROMIDE 1 PATCH PATCH.TD72 TD SCH (15:30)
[2017-05-18 00:12] VITALS: PULSE 79
[2017-05-18] MEDS ORDERED: MORPHINE 100 MG in SODIUM CHLORIDE 98 ML IVPB SCH (01:45)
--- NOTE | 2017-05-18 02:04 | PN ---
Progress Note (short form) - Note Progress Note: BRIEF ICU NOTE: Briefly, Mr Stallworth is an 86 y/o man, SNF pt, w/ LAURIE, HTN, & depression BIBA on 05/05 in critical condition including but NOT limited to: hypoxic resp fail, septic shock, influenza A +, GIB w/ Hgb --> 4.5, LA > 6 , & Renal Fail w/ --> Cr 2.8. Pt remained refractory to: intubation, ventilation, invasive resusitation, & New generation Abx. Despite, good source control, abx, max pressors, and full Vent support, the pt continued to deteriorate. Given the severity of the patient's condition, the family moved the pt to DNR/JUNIOR LINUX ADMINISTRATOR status & the pt was extubated @ the family's request. This morning the pt was noted pulseless, apneic, pupils fixed & dilated. At 0145Hrs I did pronounce the pt . Organ Donor was notified. The family was offered professor of social work and pastoral support. All questions were answered. Elias Calabrese, ACNP-BC [id number] [facility] PULM / CCM
--- NOTE | 2017-05-19 09:24 | DS ---
Physical Examination Vital Signs: Vital Signs Temperature 96.2 F L 05/17/17 06:00 Pulse Rate 79 05/18/17 00:00 Respiratory Rate 22 05/18/17 00:00 Blood Pressure 104/48 05/17/17 08:00 O2 Sat by Pulse Oximetry (%) 83 L 05/17/17 21:00 Labs: CBC, BMP 05/15/17 14:30 05/15/17 05:05 Discharge Summary Reason For Visit: SEPSIS Hospital Course: 05/05/17 21:51 86 y o male , came to [facility] with SOB at NH, desaturation to 70s. On arrival, pt tachypneic, altered, not responding to commands, EMS was bagging patient, pt with pulse HR 110s. Pt intubated on arrival for respiratory failure. in hospital: icu and intubated and pressors and iv abx, patient was then made DNR and compassionate extubation and on 05/18/17 Condition: - Instructions Referrals: Jodi Huerta MD [Primary Care Provider] - Disposition: - Home Medications Comprehensive Discharge Medication List: Ambulatory Orders Amlodipine Besylate [Norvasc -] 10 mg PO DAILY 04/14/17 Brimonidine Tartrate [Alphagan 0.2% -] 1 drop OU DAILY 04/14/17 Dorzolamide HCl/Timolol Maleat [Cosopt Eye Drops] 10 ml OP DAILY 04/14/17 Olanzapine [Zyprexa -] 2.5 mg PO DAILY 04/14/17 Quetiapine Fumarate [Seroquel -] 25 mg PO HS 04/14/17 Travoprost [Travatan Z] 2.5 ml OP DAILY 04/14/17
== END 2017-05-18 02:00 | disposition expired | DRG 870 ==
LOC: JER 19:08 → JERBED 21:51 → JICU 05-06 01:15
PROVIDERS: ADMIT Family Medicine; ATTEND Family Medicine
PROC: 5A1955Z Respiratory Ventilation, Greater than 96 Consecutive Hours (ICD-10-PCS; principal; 2017-05-05)
PROC: 0BH17EZ Insertion of Endotracheal Airway into Trachea, Via Natural or Artificial Opening (ICD-10-PCS; 2017-05-05)
DX: A41.9 Sepsis, unspecified organism (principal); J18.9 Pneumonia, unspecified organism; R65.21 Severe sepsis with septic shock; J96.01 Acute respiratory failure with hypoxia; G93.41 Metabolic encephalopathy; I62.00 Nontraumatic subdural hemorrhage, unspecified; N17.9 Acute kidney failure, unspecified; E87.2 Acidosis; K92.2 Gastrointestinal hemorrhage, unspecified; R64 Cachexia; Z68.1 Body mass index [BMI] 19.9 or less, adult; R41.82 Altered mental status, unspecified; F03.90 Unspecified dementia, unspecified severity, without behavioral disturbance, psychotic disturbance, mood disturbance, and anxiety; I48.0 Paroxysmal atrial fibrillation; J11.1 Influenza due to unidentified influenza virus with other respiratory manifestations; I12.9 Hypertensive chronic kidney disease with stage 1 through stage 4 chronic kidney disease, or unspecified chronic kidney disease; N18.9 Chronic kidney disease, unspecified; I25.119 Atherosclerotic heart disease of native coronary artery with unspecified angina pectoris; E11.22 Type 2 diabetes mellitus with diabetic chronic kidney disease; D72.829 Elevated white blood cell count, unspecified; E83.42 Hypomagnesemia; D50.9 Iron deficiency anemia, unspecified; N40.0 Benign prostatic hyperplasia without lower urinary tract symptoms
CPT/HCPCS: 36415; 36430; 36600; 70450-TC; 71045-TC; 76775-TC; 76856-TC; 80048; 80053; 81003; 81015; 82272; 82436; 82550; 82570; 82803; 82962; 83605; 83735; 84100; 84133; 84300; 84484; 84540; 85025; 85027; 85610; 85730; 86850; 86900; 86901; 86922; 87040; 87070; 87077; 87086; 87205; 87804; 93005; 93010; 93306-TC; 93970-TC; 94002; 99285-25; G0480; G9019; P9017; P9038; P9058